=== PATIENT | female | born 1965 | race Caucasian/White ===

== ENCOUNTER 2023-08-01 10:42 | Emergency (ER) | payer MEDICARE, SELFPAY ==
[2023-08-01 10:49] VITALS: RESP 16; TEMP 36.8; O2SAT 98; BMI 32.4
[2023-08-01 10:52] VITALS: BP 191/120
[2023-08-01 10:58] VITALS: BP 164/108
[2023-08-01] MEDS: KETOROLAC TROMETHAMINE 60 MG/2 ML VIAL IM (11:18)
[2023-08-01] MEDS: AMOXICILLIN/POTASSIUM CLAV 1 TAB TABLET PO (11:18)
[2023-08-01] MEDS: LIDOCAINE VISCOUS 2% 15 ML SOLUTION MM (11:18)
[2023-08-01 11:33] VITALS: PULSE 88; RESP 18; O2SAT 98
--- NOTE | 2023-08-01 14:46 | ED.DENTAL1 ---
HPI - Dental/Oral General Chief complaint: Dental/Oral Stated complaint: TOOTH PAIN Time Seen by Provider: 08/01/23 11:03 Source: patient Mode of arrival: walk-in Limitations: no limitations History of Present Illness HPI Narrative: The patient presenting to us with a upper right dental pain she mentioned that she had an extraction of the fifth and fourth teeth in the right upper side almost a week ago on Wednesday The patient mentioned that she started having pain after that and she was not provided with any pain medication when able to evaluate the patient she was drinking coffee She did mention that she has been having a lot of pain and she tried some Tylenol at home Related Data Previous Rx's Medication Instructions Recorded amoxicillin 875 mg-potassium 1 tab PO BID #14 tabs 08/01/23 clavulanate 125 mg tablet diclofenac sodium 75 mg 75 mg PO Q12H PRN pain #10 tabs 08/01/23 tablet,delayed release Allergies Allergy/AdvReac Type Severity Reaction Status Date / Time Sulfa (Sulfonamide Allergy Intermediate Verified 08/01/23 10:51 Antibiotics) Review of Systems ROS Status of ROS 10 or more systems reviewed and unremarkable except as noted in history and below PFSH PFS Social History Smoking status: Never smoker Exam Narrative Exam Narrative: Nurses notes and vital signs reviewed and patient is not hypoxic. Dental exam of the patient There is multiple decayed tooth with multiple extraction on the right upper 6 7 and fifth tooth where the patient pointing to the extraction there is a remaining part of the teeth it is not typical as it looks in a dry socket and it is tender on palpation there is no significant inflammation of the gums seen General: Well-appearing and in no apparent distress. Skin: Warm, dry, no pallor noted. No rash. Head: Normocephalic, atraumatic. Neck: Supple, non-tender. Eye: Pupils are equal, round and EOMI. No scleral icterus. Ears, Nose, Mouth, and Throat: TM are clear, no nasal mucosal hypertrophy. Oral mucosa is moist, no posterior oropharynx erythema, uvula is mid-line Cardiovascular: Regular Rate and Rhythm without murmur, gallop or rub. Respiratory: No accessory muscle use or respiratory distress. Lungs are clear to auscultation, no wheezing, rales or rhonchi Chest Wall: no tenderness Back: No midline thoracic or lumbar vertebral tenderness. No CVA tenderness Musculoskeletal: normal ROM, no calf or popliteal tenderness, no lower extremity edema/swelling GI: Abdomen is soft, non-distended. Normal bowel sounds. No masses appreciated. No tenderness to palpation. No rebound, guarding, or rigidity noted. Neurological: A&O x4. No cranial nerve dysfunction observed. No truncal ataxia. Moves all extremities. Sensation intact. Psychiatric: Cooperative and interactive. Normal mood and affect. Constitutional Vital Signs, click to edit/add: Last Vital Signs Temp 98.3 F 08/01/23 10:49 Pulse 88 08/01/23 11:33 Resp 18 08/01/23 11:33 BP 164/108 H 08/01/23 10:58 Pulse Ox 98 08/01/23 11:33 O2 Del Method Room Air 08/01/23 10:49 Course Vital Signs Vital signs: Vital Signs Temperature 98.3 F 08/01/23 10:49 Respiratory Rate 16 08/01/23 10:49 Pulse Oximetry 98 08/01/23 10:49 Oxygen Delivery Method Room Air 08/01/23 10:49 Temperature 98.3 F 08/01/23 10:49 Pulse Rate 88 08/01/23 11:33 Respiratory Rate 18 08/01/23 11:33 Blood Pressure 164/108 H 08/01/23 10:58 Pulse Oximetry 98 08/01/23 11:33 Oxygen Delivery Method Room Air 08/01/23 10:49 MDM - Dental/Oral MDM Narrative Medical decision making narrative: The patient presentation is mostly concerning for dental decay pain and infection after dental decay her presentation right now is not typical of a dry socket especially that the decayed teeth apart still there on examination and it not typical how dry socket look or how it would be that severely painful The patient right now was treated with a viscous lidocaine as well as Augmentin and Toradol in the ER discharged home with Voltaren as well as Augmentin she was instructed about the importance of following up with her dentist on Wednesday and making sure that she will see him and he will evaluate this to avoid any complication she is to come back to the ER in case of any new symptoms I did explain to the patient the risk for infection The patient is to follow up with primary care physician in next 2-3 days or to return to the emergency department should any of the signs or symptoms worsen or new symptoms develop. The patient agrees with the following Diagnosis and Treatment plan and the patient will be discharged home. Discharge Plan Discharge Chief Complaint: Dental/Oral Clinical Impression: Toothache Patient Disposition: Home, Self-Care Time of Disposition Decision: 11:19 Condition: Good Prescriptions / Home Meds: New amoxicillin-pot clavulanate 875-125 mg tablet 1 tab PO BID Qty: 14 0RF diclofenac sodium 75 mg tablet,delayed release (DR/EC) 75 mg PO Q12H PRN (Reason: pain) Qty: 10 0RF Instructions: Toothache (ED) Additional Instructions: please follow up with your dentist [facility] Stand Alone Forms: Portal Instructions Referrals: Physician,Non-Staff, MD [Primary Care Provider] - 1 week Discharge Date/Time: 08/01/23 11:34
== END 2023-08-01 11:34 | disposition home or self-care (01) ==
PROVIDERS: Emergency Provider Emergency Medicine
DX: K08.89 Other specified disorders of teeth and supporting structures (principal)
CPT/HCPCS: 96372; 99284

== ENCOUNTER 2024-03-21 13:58 | Outpatient (OUT) | payer MEDICARE, SELFPAY | END 2024-03-21 13:59 | disposition home or self-care (01) | LOC: PST 13:58 | PROVIDERS: Visit Provider Surgery | DX: Z01.818 Encounter for other preprocedural examination (principal); Z12.11 Encounter for screening for malignant neoplasm of colon; Z80.0 Family history of malignant neoplasm of digestive organs ==

== ENCOUNTER 2024-03-29 07:06 | Day surgery (SDC) | payer MEDICARE, SELFPAY ==
--- NOTE | 2024-03-29 | OP_ITS ---
OPERATION DATE: 03/29/2024 PREOPERATIVE DIAGNOSIS: Colorectal screening. POSTOPERATIVE DIAGNOSIS: Redundant colon as well as fair prep. PROCEDURE: Colonoscopy to cecum. SURGEON: Jaswant Ly M.D. ANESTHESIA: Monitored anesthesia care. ESTIMATED BLOOD LOSS: Zero. INDICATIONS AND CONSENT: Patient is a 58-year-old female presents for colorectal screening. Indications, risks, benefits, alternatives of proceeding with colonoscopy were explained extensively to the patient, including the risks of bleeding, colon perforation or anesthetic complications. All of her questions were answered. Informed consent was obtained. PROCEDURE: Patient brought to the operating room, placed in the left lateral decubitus position. Monitored anesthesia care was provided. Rectal exam was performed which showed no masses or blood. The scope was inserted into the anal canal. Under direct visualization was advanced. With the aid of abdominal compression, it was advanced to the cecum where cecal markings were clearly identified. Upon withdrawal of the scope, mucosal surfaces were carefully examined. There were no mass lesions or polyps. No inflammatory changes or ulcerations. No significant diverticulosis. There was noted to be redundancy of the colon, as well as some solid stool throughout the colon. The scope was retroflexed in the anal canal. There was no significant hemorrhoidal disease. Scope was then withdrawn. Patient tolerated procedure well, was sent to recovery room in good condition.f/u colonoscopy should be in 10 years. CC: Patient?s family physician EVETTE
--- OUTSIDE RECORDS SUMMARY | 2024-03-29 07:10 | XMS_ITS | CCD ---
Author Organization [facility] Care Team Providers Care Suction Dredge Dumping Supervisor Name Role Phone KORINA HERNANDEZ Admitting Unavailable KORINA HERNANDEZ Attending Unavailable HOUSE, DR CASTILLO Primary Care Unavailable NELSON ODEN Consulting Unavailable HOUSE, DR CASTILLO Admitting Unavailable HOUSE, DR CASTILLO Attending Unavailable HOUSE, DR CASTILLO Primary Care Unavailable HOUSE, DR CASTILLO Consulting Unavailable MIKE BURKETT Primary Care Physician QUINTEN PAYNE Attending Unavailable BEGrace, QUINTEN Rosen Referring Unavailable QUINTEN PAYNE Attending Unavailable ANGLIM, MIKE Referring Unavailable NILLJaswant Attending Unavailable ANGLIM, MIKE Referring Unavailable NILLJaswant Attending Unavailable Allergies Allergy Classification Reported Allergen(s) Allergy Type Date of Onset Reaction(s) Facility (1 source) Codeine Drug Allergy [address] [facility] (1 source) Sulfonamides (Antibiotic) Drug allergy (disorder) [address] [facility] (1 source) tiZANidine Drug Allergy [address] [facility] (1 source) Egg/Poultry Drug allergy (disorder) [address] [facility] (2 sources) Sulfonamides (Antibiotic); Translations: [sulfa drugs] Drug allergy Weal (disorder) [facility] Medications Current Medications Medication Drug Class(es) Dates Sig (Normalized) Sig (Original) amitriptyline hydrochloride 100 mg oral tablet (1 source) Tricyclic Antidepressant Start: 12-09-2023 take 1 tablet by mouth once daily at bedtime amitriptyline 100 mg oral tablet 100 mg = 1 tab(s), Oral, Once a day (at bedtime), Refills(s) 0 Start Date: 12/09/23 Status: Ordered atorvastatin 40 mg oral tablet (1 source) HMG-CoA Reductase Inhibitor Start: 12-09-2023 take 1 tablet by mouth once daily atorvastatin 40 mg Tab 40 mg = 1 tab(s), Oral, Daily, Refills(s) 0 Start Date: 12/09/23 Status: Ordered cyclobenzaprine hydrochloride 10 mg oral tablet (1 source) Muscle Relaxant Start: 12-09-2023 take 1 tablet by mouth three times daily as needed for muscle spasms cyclobenzaprine 10 mg Tab 10 mg = 1 tab(s), Oral, TID, PRN for spasm Start Date: 12/09/23 Status: Ordered diclofenac sodium 75 mg delayed release oral tablet (1 source) Nonsteroidal Anti-inflammatory Drug Start: 12-09-2023 take 1 tablet by mouth twice daily diclofenac sodium 75 mg Oral EC Tab 75 mg = 1 tab(s), Oral, BID, Refills(s) 0 Start Date: 12/09/23 Status: Ordered 1 ml erenumab-aooe 70 mg/ml auto-injector (1 source) Start: 12-09-2023 inject 70 mg by subcutaneous injection every month Aimovig SureClick 70 mg/mL subcutaneous solution 70 mg, SubCutaneous, qMonth, Refills(s) 0 Start Date: 12/09/23 Status: Ordered glucosamine 750 mg oral tablet (1 source) Start: 12-09-2023 glucosamine 750 mg oral tablet See Instructions, as directed, Refills(s) 0 Start Date: 12/09/23 Status: Ordered levothyroxine sodium 0.112 mg oral tablet (1 source) l-Thyroxine Start: 12-09-2023 take 1 tablet by mouth once daily levothyroxine 112 mcg (0.112 mg) Tab 112 mcg = 1 tab(s), Oral, Daily, Refills(s) 0 Start Date: 12/09/23 Status: Ordered meloxicam 15 mg oral tablet (1 source) Nonsteroidal Anti-inflammatory Drug Start: 12-09-2023 take 1 tablet by mouth once daily meloxicam 15 mg Tab 15 mg = 1 tab(s), Oral, Daily, Refills(s) 0 Start Date: 12/09/23 Status: Ordered omeprazole 40 mg delayed release oral capsule (1 source) Proton Pump Inhibitor Start: 12-09-2023 take 1 capsule by mouth once daily omeprazole 40 mg Cap-DR 40 mg = 1 cap(s), Oral, Daily, Refills(s) 0 Start Date: 12/09/23 Status: Ordered rOPINIRole 4 mg oral tablet (1 source) Nonergot Dopamine Agonist Start: 12-09-2023 take 1 tablet by mouth at bedtime ropinirole 4 mg oral tablet 4 mg = 1 tab(s), Oral, Bedtime, Refills(s) 0 Start Date: 12/09/23 Status: Ordered topiramate 50 mg oral tablet (1 source) Start: 12-09-2023 take 1 tablet by mouth once daily topiramate 50 mg Tab 50 mg = 1 tab(s), Oral, Daily, Refills(s) 0 Start Date: 12/09/23 Status: Ordered 24 hr venlafaxine 150 mg extended release oral capsule (1 source) Serotonin and Norepinephrine Reuptake Inhibitor Start: 12-09-2023 take 1 capsule by mouth once daily venlafaxine 150 mg Cap-ER 150 mg = 1 cap(s), Oral, Daily, Refills(s) 0 Start Date: 12/09/23 Status: Ordered 24 hr verapamil hydrochloride 120 mg extended release oral capsule (1 source) Calcium Channel Armen Start: 12-09-2023 take 1 capsule by mouth once daily verapamil 120 mg Cap-ER 120 mg = 1 cap(s), Oral, Daily, Refills(s) 0 Start Date: 12/09/23 Status: Ordered Problems Active Problems Problem Classification Problem Date Documented Date Episodic/Chronic Anxiety disorders (1 source) Anxiety 12-09-2023 Chronic Asthma (2 sources) Unspecified asthma, uncomplicated; Translations: [Asthma] Onset: 10-20-2021 12-09-2023 Chronic Disorders of lipid metabolism (2 sources) Pure hypercholesterolemia, unspecified; Translations: [Hypercholesterolemia] Onset: 10-20-2021 12-09-2023 Chronic Esophageal disorders (1 source) Gastroesophageal reflux disease 12-09-2023 Chronic Essential hypertension (2 sources) Essential (primary) hypertension; Translations: [Essential hypertension] Onset: 10-20-2021 12-09-2023 Chronic Headache; including migraine (1 source) Migraine 12-09-2023 Chronic Mood disorders (2 sources) Major depressive disorder, single episode, unspecified; Translations: [Depressive disorder] Onset: 10-20-2021 12-09-2023 Chronic Other hereditary and degenerative nervous system conditions (1 source) Restless legs syndrome; Translations: [RESTLESS LEGS SYNDROME] Onset: 10-20-2021 Chronic Other hereditary and degenerative nervous system conditions (1 source) Restless legs 12-09-2023 Chronic Other lower respiratory disease (4 sources) Shortness of breath; Translations: [SHORTNESS OF BREATH] Onset: 04-30-2022 Episodic Other nutritional; endocrine; and metabolic disorders (1 source) Body mass index 30+ - obesity 02-01-2024 Chronic Other nutritional; endocrine; and metabolic disorders (1 source) Obesity 12-09-2023 Chronic Other screening for suspected conditions (not mental disorders or infectious disease) (1 source) Screening for malignant neoplasm of colon done; Translations: [Encounter for screening for malignant neoplasm of colon] Onset: 02-01-2024 Episodic Residual codes; unclassified (1 source) Family history of malignant neoplasm of digestive organ; Translations: [Family history of malignant neoplasm of digestive organs] Onset: 02-01-2024 Episodic Residual codes; unclassified (1 source) Family history of cancer of colon 02-01-2024 Episodic Residual codes; unclassified (1 source) Insomnia 12-09-2023 Episodic Thyroid disorders (2 sources) Hypothyroidism, unspecified; Translations: [Hypothyroidism] Onset: 10-20-2021 12-09-2023 Chronic Unclassified (1 source) CONTACT W/AND (SUSP) EXPOS COVID-19; Translations: [CONTACT W/AND (SUSP) EXPOS COVID-19] Onset: 10-20-2021 Unclassified (1 source) Patient encounter status 02-01-2024 Past or Other Problems Problem Classification Problem Date Documented Da te Episodic/Chronic Other aftercare (1 source) Other terminologist (current) drug therapy; Translations: [OTH ALF CURRENT DRUG THERAPY] Onset: 10-20-2021 Episodic Other skin disorders (3 sources) Localized swelling, mass and lump, head; Translations: [LOCALIZED SWELLING MASS AND LUMP HEAD] Onset: 10-16-2021 Episodic Other upper respiratory disease (1 source) Abscess, furuncle and carbuncle of nose; Translations: [ABSCESS FURUNCLE AND CARBUNCLE NOSE] Onset: 10-20-2021 Episodic Results Test Name Value Interpretation Reference Range Facility Insurance Correspondenceon 0 6-07-2024 Insurance Correspondence [id number] 4#1.00TIFF [facility] Consent for Procedure/Surger yon 02-03-2024 Consent for Procedure/Surgery [id number] #1.00TIFF [facility] Facesheeton 02-02-2024 Facesheet [id number] 5#1.00TIFF [facility] Ambulatory Visit Summaryon 0 02-01-2024 Ambulatory Visit Summary AUTUMN BRANDT :1965 Visit Date:02/01/2024 Ambulatory Visit Instructions Your Diagnosis Screening for malignant neoplasm of colon Family history of colon cancer in father Your Care Team Attending Physician - Jaswant LY MD Primary Care Physician - MIKE BURKETT CNP Referring Physician - MIKE BURKETT CNP This Is Your Medications List Contact prescribing physician if questions or concerns amitriptyline (amitriptyline 100 mg oral tablet) atorvastatin (atorvastatin 40 mg Tab) cyclobenzaprine (cyclobenzaprine 10 mg Tab) diclofenac (diclofenac sodium 75 mg Oral EC Tab) erenumab (Aimovig SureClick 70 mg/mL subcutaneous solution) glucosamine (glucosamine 750 mg oral tablet) levothyroxine (levothyroxine 112 mcg (0.112 mg) Tab) meloxicam (meloxicam 15 mg Tab) omeprazole (omeprazole 40 mg Cap-DR) ropinirole (ropinirole 4 mg oral tablet) topiramate (topiramate 50 mg Tab) venlafaxine (venlafaxine 150 mg Cap-ER) verapamil (verapamil 120 mg Cap-ER) Procedures Performed Breast reduction, Carpal tunnel release, Colonoscopy, Excision of calcaneal spur, Excision of tumor of brain meninges, Tubal ligation, VH - Vaginal hysterectomy. Discharge Vitals Heart Rate (Peripheral) 70 Respiratory Rate 16 Blood Pressure 126/88 Height 161.2 cm Height 63 in Weight 83.3 kg Weight 183.26 lb BMI 32.06 Medications What How Much When Instructions Unchanged amitriptyline (amitriptyline 100 mg oral tablet) 1 Tablets By Mouth Once a day (at bedtime) Contact prescribing physician if questions or concerns Unchanged atorvastatin (atorvastatin 40 mg Tab) 1 Tablets By Mouth Every day Contact prescribing physician if questions or concerns Unchanged cyclobenzaprine (cyclobenzaprine 10 mg Tab) 1 Tablets By Mouth 3 times a day as needed for for spasm Contact prescribing physician if questions or concerns Unchanged diclofenac (diclofenac sodium 75 mg Oral EC Tab) 1 Tablets By Mouth 2 times a day Contact prescribing physician if questions or concerns Unchanged erenumab (Aimovig SureClick 70 mg/ mL subcutaneous solution) 70 Milligram Subcutaneous Once a month Contact prescribing physician if questions or concerns Unchanged glucosamine (glucosamine 750 mg oral tablet) See instructions as directed Contact prescribing physician if questions or concerns Unchanged levothyroxine (levothyroxine 112 mcg (0.112 mg) Tab) 1 Tablets By Mouth Every day Contact prescribing physician if questions or concerns Unchanged meloxicam (meloxicam 15 mg Tab) 1 Tablets By Mouth Every day Contact prescribing physician if questions or concerns Unchanged omeprazole (omeprazole 40 mg Cap-DR) 1 Capsules By Mouth Every day Contact prescribing physician if questions or concerns Unchanged ropinirole (ropinirole 4 mg oral tablet) 1 Tablets By Mouth At bedtime Contact prescribing physician if questions or concerns Unchanged topiramate (topiramate 50 mg Tab) 1 Tablets By Mouth Every day Contact prescribing physician if questions or concerns Unchanged venlafaxine (venlafaxine 150 mg Cap-ER) 1 Capsules By Mouth Every day Contact prescribing physician if questions or concerns Unchanged verapamil (verapamil 120 mg Cap-ER) 1 Capsules By Mouth Every day Contact prescribing physician if questions or concerns Allergies sulfa drugs (Hives) Problems Ongoing - Any problem that you are currently receiving treatment for. Anxiety Asthma BMI 32.0-32.9,adult Depression Essential hypertension Family history of colon cancer in father GERD (gastroesophageal reflux disease) Hypercholesteremia Hypothyroidism Insomnia Migraines Obesity RLS (restless legs syndrome) Screening for malignant neoplasm of colon Patient Survey You may receive a survey via text or e-mail asking about your office visit. Please share your experience with us by completing your survey. We appreciate your feedback and thank you for choosing us for your care. Normal [facility] CT ANGIO HEADon 01-27-2024 CT ANGIO HEAD EXAM: CT ANGIO HEAD History: family histoy of cerevral aneurysm Technique: Multiple axial images were obtained of the brain. Multiple axial images were obtained of the skull base through the seminole of Carvalho after administration of intravenous contrast. Multiplanar reformats and multiplanar maximum intensity projection images were performed. All CT scans at this facility use dose modulation, iterative reconstruction, and/or weight based dosing when appropriate to reduce radiation dose to as low as reasonably achievable. Comparison: CT brain June 28, 2019 Findings: Brain volume is age-appropriate. Ventricular morphology is within normal limits. No acute intracranial hemorrhage or extra-axial fluid collection. Postsurgical changes of right-sided craniectomy. Paranasal sinuses and mastoid air cells are clear. The bilateral distal cervical internal carotid arteries through the skull base are patent. The bilateral middle cerebral arteries through the trifurcation and opercular branches are patent. The vertebrobasilar system including the superior cerebellar and posterior cerebral arteries are patent. Posterior communicating arteries are patent. The bilateral anterior cerebral arteries and anterior communicating artery are patent. No aneurysm or high-grade stenosis of the visualized cerebral vasculature. IMPRESSION: No aneurysm or high-grade stenosis. ELECTRONICALLY SIGNED BY: Gregorio Reed, DO Normal Not Available Provider Letteron 12-24-2023 Provider Letter December 24, 2023 AUTUMN BRANDT [address] [place] [address] : 1965 Dear Ms. Brandt, We have been trying to reach you with no success. You have an appointment with Dr Ly on 01/14/24 which will need to be rescheduled since he/she will be out of the office that day. Please contact the office at the number listed below to get this appointment rescheduled at your earliest convenience. Thank you for your prompt attention to this matter. Sincerely, [facility] General Surgery [phone] Normal [facility] Physician Referralon 024 Physician Referral [id number] #1.00TIFF Normal [facility] Physician Referralon 024 Physician Referral [id number] #1.00TIFF Normal [facility] CULTURE ABSCESSon 10-19-2021 CULTURE ABSCESS Isolate 1 Staphylococcus aureus Moderate growth of ORGANISM 1 Staphylococcus aureus ANTIBIOTIC M.I.C RX STATUS Beta-Lactamase Neg NEG F Cefoxitin Screen Neg NEG F Benzylpenicillin 0.12 S F Gentamicin <=0.5 S F Ciprofloxacin <=0.5 S F Levofloxacin <=0.12 S F Moxifloxacin <=0.25 S F Inducible Clindamycin Resistance Neg NEG F Erythromycin <=0.25 S F Clindamycin <=0.25 S F Quinupristin/Dalfopr istin <=0.25 S F Linezolid 2 S F Vancomycin 1 S F Tetracycline <=1 S F Rifampicin <=0.5 S F Trimethoprim/Sulfame thoxazole <=10 S F Oxacillin 0.[address] [facility] Comment on above: Performed By: #### A BCESCX #### [facility] [address] [place] [id number] Augustin Adams Covid-19 PCR (CVDTB)on SARS-CoV-2 (COVID-19) RNA DAI+probe Ql (Unsp spec) Not detected Normal NOT DETECTED [facility] Comment on above: Result Comment: This test is not yet approved or cleared by the [place] FDA. When there are no FDA-approved or cleared tests available, and other criteria are met, FDA can make tests available under an emergency access mechanism called an Emergency Use Authorization (EUA). The EUA for this test is supported by the Lab Assistant of Health and Human Service's (HHS's) declaration that circumstances exist to justify the emergency use of in vitro diagnostics for the detection and/or diagnosis of the virus that causes COVID-19. This EUA will remain in effect (meaning this test can be used) for the duration of the COVID-19 declaration justifying emergency of IVDs, unless it is terminated or revoked by FDA (after which the test may no longer be used). When diagnostic testing is negative, the possibility of a false negative should be considered in the context of a patient's recent exposures and the presence of clinical signs and symptoms consistent with SARS-CoV-2. Performed By: #### C VDTBH #### [facility] [address] [place] [id number] Augustin Adams Vital Signs Date Time Vital Sign Value Performing Clinician Faci lity 02-01-2024 13:35-0400 Blood Pressure Location Jaswant MOUNA [facility] 02-01-2024 13:35-0400 Diastolic blood pressure 88 mm[Hg] Jaswant MCDOWELLL [facility] 02-01-2024 13:35-0400 Heart rate 70 /min Jaswant JEREMIASL [facility] 02-01-2024 13:35-0400 Respiratory rate 16 /min Jaswant JEREMIASL [facility] 02-01-2024 13:35-0400 Systolic blood pressure 126 mm[Hg] Jaswant MCDOWELLL [facility] Encounters Encounter Date Encounter Type Care Provider Facility Start: 02-29-2024 End: 02-29-2024 ambulatory QUINTEN D BEJ Not Available Start: 02-01-2024 End: 02-01-2024 ambulatory MIKE BURKETT Facility:[facility] Start: 02-01-2024 End: 02-01-2024 [facility] encounter [facility] Start: 01-27-2024 End: 01-28-2024 ambulatory QUINTEN D BEJ Not Available Start: 01-14-2024 ambulatory MIKE BURKETT Facility:[facility] Start: 12-14-2023 End: 12-14-2023 ambulatory QUINTEN D BEJ Not Available Start: 12-02-2023 ambulatory MIKE BURKETT Facility:[facility] Start: 04-30-2022 End: 05-01-[address] ANNA ÁLVAREZ Facility:[facility] Start: 10-16-2021 End: 10-16-2021 ambulatory KORINA HERNANDEZ Facility:[facility] Procedures Date Procedure Procedure Detail Performing Clinician Colonoscopy Jaswant LY Decompression of median nerve Jaswant LY Excision of tumor of brain meninges Jaswant LY Ligation of fallopian tube M alberto LY Ostectomy of calcaneus for spur Jaswant MOUNA Reduction mammoplasty Dallin LY Vaginal hysterectomy Jaswant LY Immunizations Immunization Date Immunization Notes Care Provider Fa cili 09-28-2023 influenza virus vaccine, unspecified formulation Jaswant LY [facility] 09-17-2022 SARS-CoV-2 (COVID-19 ) [id number] Jaswant LY [facility] 09-21-2021 SARS-CoV-2 (COVID-19 ) mRNA BNT-162b2 vax Jaswant LY [facility] 01-22-2021 SARS-CoV-2 (COVID-19 ) mRNA BNT-162b2 vax Jaswant LY [facility] Comment on above: Result Comment: 2023: [id number] 12-31-2020 SARS-CoV-2 (COVID-19 ) mRNA BNT-162b2 vax Jaswant LY [facility] Comment on above: Result Comment: 2023: [id number] Payers Date Payer Category Payer Unknown [id number] 2.16.84 [id number] 1965 Unknown [id number] 2.16.84 [id number] 1965 Unknown [id number] 2.16.84 [id number] 1965 Unknown [id number] 2.16.84 [id number] 1965 Unknown [id number] 2.16.84 [id number] 1965 Unknown [id number] 2.16.8 [id number] 1965 Unknown [id number] 2.16.8 [id number] 1961 Medicare [id number] Social History Date Type Detail Facility Start: 02-01-2024 Tobacco smoking status Never s moked tobacco (finding) [facility] Tobacco smoking status Never [facility] Sex Assigned At Female [facility] Functional Status Date Assessment Result Facility 02-01-2024 Functional Status N/A [facility] Clinical Note 02-01-2024 Note Date & Type Note Facility 02-01-2024 Note Chief Complaint consultation for colonoscopy HPI Staff 58 year old female presents on consultation from Mike Burkett for screening colonoscopy. Denies abdominal or rectal pain. No rectal bleeding or change in bowel habits. Reports chronic constipation. Denies nausea or vomiting. No unexplained weight loss. Last colonoscopy completed greater than 10 years ago for complaint of constipation; patient reports this was normal. Father with history of colon cancer, diagnosed age 60. History of Present Illness 58 yo female with h/o htn, hypercholesterolemia, hypothyroidism, GERD, asthma, migraines, RLS, referred for colorectal screening; denies change in bms or blood in stools; no abdominal complaints; denies asa use, on Diclofenac daily; no SBE prophylaxis; abdominal operations significant for tubal ligation and hysterectomy; last colonoscopy >10 years ago, reportedly normal; fmhx of colon cancer in patient's father, dx at age 60, no IBD; no tobacco use. Review of Systems PHQ Score Initial Depression Screen Score: 0 SCORE ROS - Provider Constitutional: no fever, no sweats, no weight loss. Eyes: no glasses, no blurred vision, no visual loss. ENMT: no dentures, no hoarseness, no swallowing difficulties, no hearing loss, no ear infection(s), no nose bleeds. Cardiovascular: normal blood pressure, no chest pain, regular heartbeat, no heart murmur. Respiratory: no shortness of breath, no cough, no asthma, no wheezing. Gastrointestinal: no nausea, no vomiting, no diarrhea, no constipation, no blood in stool, no change in bowel habits, no abdominal pain, no hepatitis. Genitourinary: no kidney stones, no urine infection, no dysuria. Musculoskeletal: no pain, no weakness. Skin: no changing moles, no rash, no skin lumps. Neurologic: no seizures, no epilepsy, no headache. Psychiatric: no emotional or psychiatric problem. Heme/Lymph: no bleeding problems, no anemia, no blood clots, no transfusions. Allergy/Immunologic: no swollen lymph nodes/glands, no IV drug abuse. Other: Additional ROS info: Except as noted in the above Review of Systems and in the History of Present Illness, all other systems have been reviewed and are negative or noncontributory. Physical Exam Vitals & Measurements HR: 70(Peripheral) RR: 16 BP: 126/88 HT: 63 in HT: 161.2 cm WT: 83.3 kg WT: 183.26 lb BMI: 32.06 HEENT: normal conjunctiva, sclera clear, no scleral icterus, EOM intact, PERRLA, oral mucosa moist without lesions. Neck: trachea midline, no mass, symmetric, no thyromegaly or nodules, no adenopathy Respiratory: lungs CTA, respirations non labored. Cardiovascular: regular rate and rhythm, no murmur, no pedal edema or varicosities. Gastrointestinal: obese, soft, non distended, no tenderness, no masses, no palpable hernias, diastasis recti no, no hepatosplenomegaly; normal bs Lymphatic: no cervical adenopathy, no supraclavicular adenopathy. Musculoskeletal: normal gait, digits and nails without infection, nodes, cyanosis, clubbing. Skin: no rashes, no lesions, no ulcers, no subcutaneous nodules, induration. Psychiatric/Neuro: oriented to time, place, person, judgement normal, affect appropriate for age, insight intact, no focal deficits. Tests: , review of old records completed , Discussed surgical options, risks, and possible complications with patient. Assessment/Plan 1. Screening for malignant neoplasm of colon (Z12.11: Encounter for screening for malignant neoplasm of colon) plan colonoscopy under anesthesia, informed consent obtained. 2. Family history of colon cancer in father (Z80.0: Family history of malignant neoplasm of digestive organs) see # 1 Follow-up No qualifying data available Problem List/Past Medical History Ongoing Anxiety Asthma BMI 32.0-32.9,adult Depression Essential hypertension Family history of colon cancer in father GERD (gastroesophageal reflux disease) Hypercholesteremia Hypothyroidism Insomnia Migraines Obesity RLS (restless legs syndrome) Screening for malignant neoplasm of colon Historical No qualifying data Procedure/Surgical History Breast reduction, Carpal tunnel release, Colonoscopy, Excision of calcaneal spur, Excision of tumor of brain meninges, Tubal ligation, VH - Vaginal hysterectomy. Medications Aimovig SureClick 70 mg/mL subcutaneous solution, 70 mg, SubCutaneous, qMonth amitriptyline 100 mg oral tablet, 100 mg= 1 tab(s), Oral, Once a day (at bedtime) atorvastatin 40 mg Tab, 40 mg= 1 tab(s), Oral, Daily cyclobenzaprine 10 mg Tab, 10 mg= 1 tab(s), Oral, TID, PRN diclofenac sodium 75 mg Oral EC Tab, 75 mg= 1 tab(s), Oral, BID glucosamine 750 mg oral tablet, See Instructions levothyroxine 112 mcg (0.112 mg) Tab, 112 mcg= 1 tab(s), Oral, Daily meloxicam 15 mg Tab, 15 mg= 1 tab(s), Oral, Daily omeprazole 40 mg Cap-DR, 40 mg= 1 cap(s), Oral, Daily ropinirole 4 mg oral tablet, 4 mg= 1 tab(s), Oral, Bedtime topiramate 50 mg Tab, 50 mg= 1 tab(s), Oral, Daily ve (more content not included)... [facility] Comment on above: Result Comment: Elec tronically Signed By: MOUNA BENITEZ, Jaswant Mccain\Date and Time Signed: 02/01/24 13:58 EDT Evaluation + Plan note Note Date & Type Note Facility Evaluation + Plan note No data available for this section [facility] Hospital Discharge instructions Note Date & Type Note Facility Hospital Discharge instructions No data available for this section [facility] Progress note Note Date & Type Note Facility Progress note No data available for this section [facility] Summary Purpose Family History No Family History Records Found No data available for this section No Family History Records FoundNo Family History Records Found Advance Directives No Advanced Directives Records FoundNo Advanced Directives Records FoundNo Advanced Directives Records Found Additional Source Comments INFORMATION SOURCE (unrecogn ized section and content) DATE CREATED AUTHOR 05/06/2022 [facility] DATE CREATED AUTHOR AUTHOR'S ORGANIZ ATION 03/02/2024 [facility] EPIC DATE CREATED AUTHOR AUTHOR'S ORGANIZ ATION 03/19/2024 [facility] Patient Care team informatio n (unrecognized section and content) Personnel Name: MIKE BURKETT CNP Address: Address: [address] [place] [address] FAX [phone] [place], [place] [address]- FOR RECORDS PERTAINING TO PATIENTS WHO ARE OR HAVE BEEN ENROLLED IN A CHEMICAL DEPENDENCY/SUBSTANCEABUSE PROGRAM, SOME INFORMATION MAY BE OMITTED. This clinical summary was aggregated from multiple sources. Caution should be exercised in using it in the provision of clinical care. This summary normalizes information from multiple sources, and as a consequence, information in this document may materially change the coding, format and clinical context of patient data. In addition, data may be omitted in some cases. CLINICAL DECISIONS SHOULD BE BASED ON THE PRIMARY CLINICAL RECORDS. [email or web address] provides no warranty or guarantee of the accuracy or completeness of information in this document.
[2024-03-29 07:30] VITALS: BP 112/77; PULSE 75; TEMP 35.7; O2SAT 99; BMI 29.2
[2024-03-29] MEDS: LACTATED RINGER'S SOLUTION 1,000 ML 50 ML IV (07:55)
[2024-03-29 09:04] VITALS: BP 118/69; PULSE 75; O2SAT 97
[2024-03-29 09:21] VITALS: BP 106/64; PULSE 71; O2SAT 97
== END 2024-03-29 09:38 | disposition home or self-care (01) ==
PROVIDERS: Visit Provider Surgery
PROC: (CPT G0105; principal; 2024-03-29 08:20)
DX: Z12.11 Encounter for screening for malignant neoplasm of colon (principal); Z80.0 Family history of malignant neoplasm of digestive organs; E78.00 Pure hypercholesterolemia, unspecified; E03.9 Hypothyroidism, unspecified; K21.9 Gastro-esophageal reflux disease without esophagitis; J45.909 Unspecified asthma, uncomplicated; G25.81 Restless legs syndrome; G43.909 Migraine, unspecified, not intractable, without status migrainosus; Z90.710 Acquired absence of both cervix and uterus; G47.33 Obstructive sleep apnea (adult) (pediatric)
CPT/HCPCS: G0105; J2704

== ENCOUNTER 2025-08-15 10:29 | Outpatient (OUT) | payer MEDICARE, SELFPAY ==
--- OUTSIDE RECORDS SUMMARY | 2024-03-27 10:15 | XMS_ITS ---
Author Organization [facility] Address [address] [place] [phone] Care Team Providers Care Stockroom Helper Name Role Phone Dagoberto Concepcion Primary Care Provider [phone] Aure Eisenberg Unavailable Julieta Goncalves Unavailable [phone] REASON FOR VISIT Try-In- U/CD, L/RPD Social History Sex Assigned At : Social History Observation Description Sex Assigned At Female Encounters Encounter Location Date Provider Diagnosis [facility] [address] [place] [address] [phone] 03/27/2024 Julieta Goncalves Plan Of Treatment No Information Progress Notes * Nory BRANDTDOB:1965 (59 yo F)Acc No.[id number]:03/27/2024 Dental Note Patient: Gris DENNISisa :?Julieta Goncalves DDSDOB:1965???Age:58 Y ???Sex:FemaleDate:03/27/2024hone:[phone]:[address] [place], [place] [id number]:Dagoberto Concepcion Subjective: * Chief Complaints: * 1 . Try-In- U/CD, L/RPD. * Medical History: Objective: * Vitals: Assessment: Plan: * Treatment: * Billing Information: * Visit Code: * Procedure Codes: * Electronic signature of Julieta Goncalves DDS on 08/15/2025 at 10:36 AM EST Sign off status: Pending * Provider: Raciel Goncalves DDS Date: 0 03/27/2024 Generated for Printing/Faxing/eTransmitting on:?08/15/2025 10:36 AM EST
--- OUTSIDE RECORDS SUMMARY | 2024-04-19 04:15 | XMS_ITS ---
Author Organization [facility] vices Address [address] [address] [place] [place] [id number] Care Team Providers Care Pet Care Worker Name Role Phone Dagoberto Concepcion Primary Care Provider Aure Eisenberg REASON FOR VISIT 4 week RLS Social History Sex Assigned At : Social History Observation Description Sex Assigned At Female Encounters Encounter Location Date Provider Diagnosis Main [address] [place], [place] [id number] 04/19/2024 Dagoberto Concepcion Plan Of Treatment No Information Progress Notes * Nory BRANDTDOB:1965 (59 yo F)Acc No.[id number]:04/19/2024 Medical Note Patient: Nory DENNIS :?NELSON Britt-CDOB:1965???Age:58 Y???Sex: FemaleDate:4Phone:[phone]:[address] [place] [id number] Subjective: * Chief Complaints: * 1 . 4 week RLS. * Medical History: Objective: * Vitals: Assessment: Plan: * Treatment: * Billing Information: * Visit Code: * Procedure Codes: * Electronic signature of NELSON Britt on 08/15/2025 at 10:35 AM ESTSign off status: Pending * Provider: Dennis Concepcion PA-C Date: 0 04/19/2024 Generated for Printing/Faxing/eTransmitting on:?08/15/2025 10:35 AM EST
--- OUTSIDE RECORDS SUMMARY | 2024-05-08 03:15 | XMS_ITS ---
Author Organization [facility] vices Address [address] [place] [id number] Care Team Providers Care Process Development Technician Name Role Phone Dagoberto Concepcion Primary Care Provider Aure Eisenberg Unavailable Julieta Goncalves Unavailable [phone] REASON FOR VISIT Denture Adjustment Social History Sex Assigned At : Social History Observation Description Sex Assigned At Female Encounters Encounter Location Date Provider Diagnosis Dental Main [address], [place] [id number] 05/08/2024 Julieta Goncalves Plan Of Treatment No Information Progress Notes * Nory BRANDTDOB:1965 (59 yo F)Acc No.[id number]:05/08/2024 Dental Note Patient: Nory DENNIS :?Julieta Goncalves DDSDOB:1965???Age:58 Y ???Sex:FemaleDate:05/08/2024hone:[phone]:[address] [place] [phone]:Dagoberto Concepcion Subjective: * Chief Complaints: * 1 . Denture Adjustment. * Medical History: Objective: * Vitals: Assessment: Plan: * Treatment: * Billing Information: * Visit Code: * Procedure Codes: * Electronic signature of Julieta Goncalves DDS on 08/15/2025 at 10:35 AM EST Sign off status: Pending * Provider: Raciel Goncalves DDS Date: 0 05/08/2024 Generated for Printing/Faxing/eTransmitting on:?08/15/2025 10:35 AM EST
--- OUTSIDE RECORDS SUMMARY | 2025-08-05 00:18 | XMS_ITS | Encounter Summary ---
Author Organization [facility] Nolio [facility] tem Address [id number] [address] [place] [address] Care Team Providers Care Payment Rep Name Role Phone Jacque Daniel APRN-FRENCH TRANSLATOR Primary Care Provider Reason for Visit * ReasonCommentsVomitingPt presents to ED C/O vomiting x5days. Pt states she has had N/V/D the last 5 days. Pt states she had some soup that pt thinks was bad that started the vomiting episodes. Pt states 7/10 abd pain at this time. Encounter Details DateTypeDepartmentCare Team (Latest Contact Info)Xdvkhpxzstu42/26/2025 1:18 AM EDT - 08/05/2025 3:38 AM EDTEmergency [facility] [address] [place] [id number] Jatin Perez MD [address] [place] [address] Nausea vomiting and diarrhea (Primary Dx); Hypokalemia; Acute cystitis without hematuria Discharge Disposition: Home Social History Tobacco UseTypesPacks/DayYears UsedDateSmoking Tobacco: NeverSmokeless Tobacco: NeverAlcohol UseStandard Drinks/WeekCommentsNot Currently0 (1 standard drink = 0.6 oz pure alcohol)PHQ-2AnswerDate RecordedTotal Clmbc9941Childcare AnswerDate QkjnuqshZghcfybpzFmvwppr59/12/2019EmploymentAnswerDate Recorded RgctyefsblNevxdmz75/12/2019Hunger ScreeningAnswerDate RecordedWithin the past 12 months we worried whether our food would run out before we got money to buy more.Never True08/05/2025Within the past 12 months the food we bought just didn't last and we didn't have money to get more.Never True08/05/2025Purpose - LifeAnswerDate RecordedPurpose and direction in bfueSoicign59/02/2021 CommentsNoSex and Gender InformationValueDate RecordedSex Assigned at Hjryzo2206/21/2024 2:41 PM EDTLegal GzgAufxqz04/06/2015 11:22 AM EDTGender IdentityNot on fileSexual OrientationNot on filedocumented as of this encounter Last Filed Vital Signs Vital SignReadingTime TakenCommentsBlood Rrebwavn657/8408/05/2025 3:33 AM EDT Oobog263208/05/2025 3:33 AM UBAZmrcsvqefbz31.9 ??C (98.4 ??F)08/05/2025 1:23 AM EDTRespiratory Qbxi9209 3:33 AM EDTOxygen Kiwzmmshcc76%08/05/2025 3:33 AM EDTInhaled Oxygen Concentration--Tlbtdb08 kg (150 lb)08/05/2025 1:23 AM EDT Uxiogj829.1 cm (5' 5 )08/05/2025 1:23 AM EDTBody Mass Index24.9608/05/2025 1:23 AM EDTdocumented in this encounter Discharge Instructions * Discharge Instructions* Jatin Perez MD - 08/05/2025 2:08 AM EDT Make certain that your drinking enough water or Pedialyte to stay well hydrated. Increase your dietary potassium intake. Take medications, as prescribed, to assist with symptoms. Please contact your primary care physician's office Wednesday morning to schedule follow-up. * Attachments The following attachments cannot be sent through Care Everywhere. * High-potassium diet ([place]guillan) * Hypokalemia ([place]) * Nausea and vomiting in adults ([place]an) * Diarrhea? Adult ED ([place]) * Urinary tract infection in adults ??? Discharge instructions ([place]) documented in this encounter Medications at Time of Discharge MedicationSigDispense QuantityRefillsLast FilledStart DateEnd Date AIMOVIG AUTOINJECTOR 140 mg/mL auto-injector 150 mg.05/11/2024 albuterol (PROVENTIL HFA;VENTOLIN HFA) 90 mcg/actuation inhaler Inhale 2 puffs every 4 (four) hours as needed for wheezing. amitriptyline (ELAVIL) 100 mg tablet Take 1 tablet (100 mg total) by mouth nightly. atorvastatin (LIPITOR) 20 mg tablet Take 1 tablet (20 mg total) by mouth in the morning. celecoxib (CeleBREX) 100 mg capsule TAKE 1 CAPSULE (100 MG) BY MOUTH IN THE MORNING AND BEFORE BEDTIME coenzyme Q10 30 mg capsule Take 1 capsule (30 mg total) by mouth in the morning and 1 capsule (30 mg total) at noon and 1 capsule (30 mg total) before bedtime. cyclobenzaprine (FLEXERIL) 10 mg tablet Take 1 tablet (10 mg total) by mouth in the morning and 1 tablet (10 mg total) before bedtime. fluticasone propionate (FLONASE) 50 mcg/actuation nasal spray Administer 1 spray into each nostril in the morning. fluticasone-salmeterol (ADVAIR) 250-50 mcg/dose DISKUS Inhale 1 puff as needed in the morning and 1 puff as needed in the evening. glucosamine HCl/chondroitin horn (GLUCOSAMINE-CHONDROITIN ORAL) Take 1 tablet by mouth in the morning and 1 tablet before bedtime. 1500 Xs 2. levothyroxine (SYNTHROID, LEVOTHROID) 112 MCG tablet Indications:hypothyroidismTake 1 tablet (112 mcg total) by mouth in the morning. Indications: a condition with low thyroid hormone levels. loperamide (IMODIUM) 2 mg capsule Take 1 capsule (2 mg total) by mouth 4 (four) times a day as needed for diarrhea. 12 capsule 08/05/2025 meloxicam (MOBIC) 15 mg tablet Take 1 tablet (15 mg total) by mouth in the morning.01/22/2023 MULTIVIT-MIN/IRON/FOLIC/LUTEIN (CENTRUM SILVER WOMEN ORAL) Take 1 tablet by mouth in the morning. NON FORMULARY Med Name: potassium 99 mg, osteo-bi flex, brain performance support daily, omeprazole (PriLOSEC) 40 mg capsule Take 1 capsule (40 mg total) by mouth in the morning for 14 days. 14 capsule 5110/19/2024 ondansetron ODT (ZOFRAN ODT) 4 mg disintegrating tablet Dissolve 1 tablet (4 mg total) on tongue every 8 (eight) hours as needed for nausea for up to 10 doses. 10 tablet 08/05/2025 potassium gluconate 600 mg (99 mg) tablet Take 1 tablet by mouth in the morning. rOPINIRole (REQUIP) 4 mg tablet Take 1 tablet (4 mg total) by mouth nightly.01/22/2023 SUMAtriptan (IMITREX) 50 mg tablet Indications:Chronic migraine with auraTake 1 tablet (50 mg total) by mouth once as needed for migraine. May repeat in 2 hours if unresolved. Do not exceed 200 mg in 24 hours. 9 tablet topiramate (TOPAMAX) 200 MG tablet Take 1 tablet (200 mg total) by mouth in the morning. topiramate (TOPAMAX) 200 MG tablet Take 2 tablets (400 mg total) by mouth nightly. topiramate (TOPAMAX) 50 mg tablet Indications:Restless leg syndrome,Chronic migraine with auraTake 1 tablet (50 mg total) by mouth 2 (two) times a day. 60 tablet venlafaxine 150 MG tablet extended release 24hr 24 hr tablet Take 1 tablet (150 mg total) by mouth in the morning.documented as of this encounter ED Notes * Jatin Perez MD - 08/05/2025 1:29 AM EDT Images from the original note were not included. [facility] - EMERGENCY Pt Name: Nory Brandt Birthdate: 1965 Chief Complaint: Chief Complaint Patient presents with Vomiting Pt presents to ED C/O vomiting x5days. Pt states she has had N/V/D the last 5 days. Pt states she had some soup that pt thinks was bad that started the vomiting episodes. Pt states 7/10 abd pain at this time. History of Present Illness: Patient is a 59-year-old female presenting to the emergency department for evaluation and treatmentof persistent nausea, vomiting, and diarrhea. Patient reports that her symptoms have been ongoing for the last 5 days. Patient reports that she had made a broccoli soup for a competition. She indicated that she ate the soup thinking it was still good and shortly afterwards developed her symptoms. She indicates that she has vomited 3 times in the last 24 hours. She has had too numerous to count number of stools in the last 24 hours. She describes the stools as looking like bile. She ate some chicken noodle soup earlier this evening. She has some diffuse abdominal cramping. Past Medical History: Past Medical History: Diagnosis Date Anxiety Asthma Brain tumor (benign) ([facility]) Carpal tunnel syndrome Chronic pain neck and back Coronary artery disease Depression GERD (gastroesophageal reflux disease) Headache(784.0) High cholesterol Hypertension Hypothyroidism Migraine Neck pain Neurologic abnormality New onset seizure (CMS-HCC) 06/29/2019 Sleep apnea 2020 Past Surgical History: Past Surgical History: Procedure Laterality Date CARPAL TUNNEL RELEASE Bilateral CARPAL TUNNEL RELEASE Bilateral 2002,2003 CRANIOTOMY Right parietal, for benign tumor ESOPHAGOGASTRODUODENOSCOPY N/A 03/02/2023 Performed by Jaswant Gibbons DO at [facility] INJECTION BLOCK NERVE MEDIAL BRANCH BILAT C 3/4, 4/5 Bilateral 07/14/2024 Performed by Pb Prasad MD at [facility] INJECTION BLOCK NERVE MEDIAL BRANCH RIGHT C 3/4, 4/5 Right 09/01/2024 Performed by Pb Prasad MD at [facility] INJECTION SPINE TRANSFORAMINAL: right C 5,6 Nroot Right 01/12/2025 Performed by Pb Prasad MD at [facility] RADIO FREQUENCY ABLATION - Right C2/3, C3/4 RFA Right 03/12/2017 Performed by Pb Prasad MD at [facility] RADIOFREQUENCY ABLATION SPINAL RIGHT C 3/4, 4/5 Right 10/20/2024 Performed by Pb Prasad MD at [facility] PAIN REDUCTION MAMMAPLASTY Bilateral 10/11/2006 SPINAL CORD STIMULATOR IMPLANT SPINAL CORD STIMULATOR REMOVAL TONSILLECTOMY TONSILLECTOMY TUBAL LIGATION Family History: Family History Problem Relation Age of Onset Cerebral aneurysm Mother Restless legs syndrome Mother Aneurysm Mother Prostate cancer Father Ovarian cancer Maternal Aunt Ovarian cancer Maternal Aunt Ovarian cancer Maternal Aunt Ovarian cancer Maternal Aunt Social History: Social History Socioeconomic History Marital status: Tobacco Use Smoking status: Never Smokeless tobacco: Never Vaping Use Vaping status: Never Used Substance and Sexual Activity Alcohol use: Not Currently Drug use: Yes Types: Marijuana Comment: marijuana gummies Sexual activity: Defer Partners: Male Social Drivers of Health Food Insecurity: No Food Insecurity (08/05/2025) Hunger Screening Food Insecurity - Worry: Never True Food Insecurity - Inability: Never True Review of Systems: Review of Systems Physical Exam: ED Triage Vitals [08/05/25 0123] Temp Heart Rate Resp BP SpO2 36.9 ??C (98.4 ??F) 98 19 100/71 99 % Temp Source Heart Rate Source Patient Position BP Location FiO2 (%) Oral -- -- -- -- Vitals: 08/05/25 0123 08/05/25 0300 08/05/25 0333 BP: 100/71 130/82 137/84 Temp: 36.9 ??C (98.4 ??F) TempSrc: Oral Pulse: 98 80 84 Resp: 19 17 17 SpO2: 99% 100% 98% Height: 165.1 cm (5' 5 ) Weight: 68 kg (150 lb) 98 Physical Exam Constitutional: General: She is not in acute distress. Appearance: She is not ill-appearing, toxic-appearing or diaphoretic. HENT: Head: Normocephalic and atraumatic. Nose: Nose normal. Mouth/Throat: Mouth: Mucous membranes are moist. Eyes: Conjunctiva/sclera: Conjunctivae normal. Cardiovascular: Rate and Rhythm: Normal rate and regular rhythm. Pulses: Normal pulses. Heart sounds: Normal heart sounds. Pulmonary: Effort: Pulmonary effort is normal. Breath sounds: Normal breath sounds. Abdominal: Palpations: Abdomen is soft. Tenderness: There is abdominal tenderness. Comments: Generalized tenderness without rigidity, rebound, or guarding Musculoskeletal: General: Normal range of motion. Cervical back: Normal range of motion and neck supple. Skin: General: Skin is warm and dry. Neurological: General: No focal deficit present. Mental Status: She is alert and oriented to person, place, and time. Psychiatric: Mood and Affect: Mood normal. Behavior: Behavior normal. Procedure: Procedures Re-evaluation: Re-Evaluation Medical Decision Making IV access will be obtained. IV fluids ordered. IV Zofran and Pepcid ordered for patient comfort. Laboratory testing ordered. Stool studies have been ordered. Differential diagnosis: Gastroenteritis, food poisoning, infectious diarrhea, colitis, UTI Amount and/or Complexity of Data Reviewed Labs: ordered. Decision-making details documented in ED Course. Risk Prescription drug management. ED Course: ED Course as of 08/08/25 0808 Sun Aug 05, 2025 0200 Sodium: 140 [RS] 0200 Potassium(!): 3.0 [RS] 0200 Chloride(!): 114 [RS] 0200 CARBON DIOXIDE(!): 17 [RS] 0200 Anion gap: 9 [RS] 0200 BUN: 17 [RS] 0200 Creatinine: 0.82 [RS] 0200 Glucose(!): 121 [RS] 0200 CALCIUM: 9.1 [RS] 0200 eGFR (CKD-EPI)non-race dependent: 81 Hypokalemia noted. Oral potassium replacement ordered. [RS] 0200 Lipase: 37 Normal lipase [RS] 0200 TOTAL PROTEIN: 7.7 [RS] 0200 Albumin: 4.5 [RS] 0200 BILIRUBIN,TOTAL: 0.4 [RS] 0200 Alkaline phosphatase: 54 [RS] 0200 AST: 21 [RS] 0200 ALT: 17 [RS] 0200 BILIRUBIN,DIRECT: 0.1 Unremarkable LFTs [RS] 0200 White Blood Cells: 10.6 [RS] 0200 Hemoglobin: 13.0 [RS] 0200 Hematocrit: 38.7 [RS] 0200 Platelets: 318 Unremarkable CBC. Specifically no leukocytosis noted to suggest significant concern for intra-abdominal infectious process [RS] 0325 Specific gravity ZACHARY(!): >=1.030 [RS] 0325 Leukocyte esterase ZACHARY(!): Trace [RS] 0325 Nitrite ZACHARY: Negative [RS] 0325 Ph: 6.0 [RS] 0325 Protein ZACHARY(!): Trace [RS] 0325 Urine glucose ZACHARY: Negative [RS] 0325 Ketones ZACHARY: Negative [RS] 0325 Urobilinogen ZACHARY: 0.2 E.U./dL [RS] 0325 Bilirubin ZACHARY: Negative [RS] 0325 POC Urine Blood/HGB: Negative Suggestion of UTI [RS] 0330 No indication for admission at this time. A dose of Augmentin provided prior to discharge to address UTI. Prescription for same provided. Reviewed results and post care follow up instructions with the patient. [RS] ED Course User Index [RS] Jatin Perez MD Clinical Impressions as of 08/08/25 0808 Nausea vomiting and diarrhea Hypokalemia Acute cystitis without hematuria . ED Disposition ED Disposition Discharge Date/Time Sun Aug 05, 2025 3:30 AM Comment At the time of discharge, the plan has been discussed with the patient regarding the diagnosis and prognosis. All questions have been answered. Verbal discharge instructions were discussed with the patient. The patient has been advised to follow up w ith their Primary Care Provider within 1-2 days.The patient was also instructed to return to the ED if their symptoms change, worsen, new symptoms a rise or if they have any additional concerns. Medications Prescribed this Visit Sig ondansetron ODT (ZOFRAN ODT) 4 mg disintegrating tablet Dissolve 1 tablet (4 mg total) on tongue every 8 (eight) hours as needed for nausea for up to 10 doses. loperamide (IMODIUM) 2 mg capsule Take 1 capsule (2 mg total) by mouth 4 (four) times a day as needed for diarrhea. omeprazole (PriLOSEC) 40 mg capsule Take 1 capsule (40 mg total) by mouth in the morning for 14 days. . Please note that portions of this note were completed with a voice recognition program. Efforts were made to edit the dictations but occasionally words are mis-transcribed. Jatin Perez MD 08/05/25 0131 Jatin Perez MD 08/08/25 0808 documented in this encounter Plan of Treatment Not on file documented as of this encounter Goals GoalPatient Goal TypeAssociated ProblemsRecent ProgressPatient-Stated?Author <enter goal here> Marisol Rose RN Note: Evaluation of progress towards goal: snf documented as of this encounter Procedures Procedure NamePriorityDate/TimeAssociated DiagnosisCommentsGI PANEL STOOL PATHOGEN DPWYVPVBJ78/26/2025 3:24 AM EDT C DIFFICILE BY RCHBNXQ44/26/2025 3:24 AM EDT POCT NURSING URINE MACROSCOPIC KFMjigprq85/26/2025 3:21 AM EDT ER EXTRA LDHCTQFXN50/26/2025 3:18 AM EDT EXTRA TUBES BLUE HAVOkdftxj85/26/2025 1:36 AM EDT EXTRA RCRVDGkznlcn30/26/2025 1:36 AM EDT CBC WITH AUTO IYDEJZFXMLRWFVUF48/26/2025 1:33 AM EDT XJNUHKUFOP78/26/2025 1:33 AM EDT LIVER ETNNGJPUM58/26/2025 1:33 AM EDT BASIC METABOLIC BBGYPUTMV30/26/2025 1:33 AM EDT documented in this encounter Results * C difficile by PCR (08/05/2025 3:24 AM EDT)ComponentValueRef RangeTest Method Analysis TimePerformed AtPathologist SignatureTOXIGENIC C DIFFNegativeNegative 08/05/2025 10:52 AM [facility] ZEWNWNKUIQ692 VGD5Ameacccjabd NegativePresumptive Cpzgbjom20/26/2025 10:52 AM [facility] LABORATORYComment:Assay methodology is nucleic acid amplification by real-time PCR for detection of C. difficile toxin gene sequences performed on [employer] Instrument System.Specimen (Source)Anatomical Location / Laterality Collection Method / VolumeCollection TimeReceived TimeStoolFeces / Unknown 08/05/2025 3:24 AM EDT1 3:29 AM EDT Narrative Authorizing ProviderResult TypeResult StatusJatin Perez MDBODY FLUIDS AND STOOLS ORDERABLESFinal ResultPerforming OrganizationAddressCity/State/ZIP Code Phone Number [facility] [address] [place] [address], * GI Panel(stool pathogen panel) (08/05/2025 3:24 AM EDT)ComponentValueRef Range Test MethodAnalysis TimePerformed AtPathologist SignatureCAMPYLOBACTERNot DetectedNot Xcekljod84/26/2025 11:22 AM [facility] PLESIOMONASNot DetectedNot Wxogryrl59/26/2025 11:22 AM [facility] LABORATORYSALMONELLANot DetectedNot Ttmfuyfy12/26/2025 11:22 AM EDT [facility]ORATORYVIBRIONot DetectedNot Uqtlhjly99/26/2025 11:22 AM [facility] LABORATORYVIBRIO CHOLERAENot DetectedNot Diavozxg51/26/2025 11:22 AM [facility] LABORATORYY. ENTEROCOLITICANot DetectedNot Ruhpderp64/26/2025 11:22 AM [facility] LABORATORYAGGREGATIVE E COLINot DetectedNot Hivujpjy24/26/2025 11:22 AM [facility] LABORATORYPATHOGENIC E COLINot DetectedNot Xxbeoggd25/26/2025 11:22 AM [facility] LABORATORYTOXIGENIC E COLINot DetectedNot Yvblajhv67/26/2025 11:22 AM [facility] LABORATORYSHIGA TOXIN E COLINot DetectedNot Ltzlbxal90/26/2025 11:22 AM EDT [facility]ORYSHIGELLA-E COLINot DetectedNot Detected 08/05/2025 11:22 AM [facility] LABORATORYCRYPTOSPORIDIUMNot DetectedNot Njdfxjal31/26/2025 11:22 AM [facility] CYCLOSPORANot DetectedNot Wxlgoowm02/26/2025 11:22 AM [facility]ORATORYE HISTOLYTICANot DetectedNot Rkghrdml87/26/2025 11:22 AM [facility] LABORATORYGIARDIA LAMBLIANot DetectedNot Detected 08/05/2025 11:22 AM [facility] LABORATORYADENOVIRUSNot DetectedNot Qrdfmxtj98/26/2025 11:22 AM [facility] ASTROVIRUSNot DetectedNot Zjptxfqa13/26/2025 11:22 AM [facility] LABORATORYNOROVIRUSNot DetectedNot Hpnrgoso67/26/2025 11:22 AM EDT [facility]ATORYROTAVIRUS ANot DetectedNot Detected 08/05/2025 11:22 AM [facility] LABORATORYSAPOVIRUSNot DetectedNot Xizusdiz12/26/2025 11:22 AM [facility] Specimen (Source)Anatomical Location / LateralityCollection Method / Volume Collection TimeReceived TimeStoolFeces / Puqrxco2208/05/2025 3:24 AM EDT 08/05/2025 3:29 AM EDT Narrative Authorizing ProviderResult TypeResult StatusJatin Perez MDBODY FLUIDS AND STOOLS ORDERABLESFinal ResultPerforming OrganizationAddressCity/State/ZIP Code Phone Number [facility] [address] [place] [address], * (ABNORMAL) POCT Nursing Urine Macroscopic UA (08/05/2025 3:21 AM EDT)Component ValueRef RangeTest MethodAnalysis TimePerformed AtPathologist [facility] Urine Specific [place]>=1.030(A)1.010, 1.015, 1.020, 1.5672508/05/2025 3:21 AM [facility] Urine Leukocyte EsteraseTrace(A) Sxrfykxp81/26/2025 3:21 AM [facility] Urine JczyljdVfgvdlnjNtpjvsmv71/26/2025 3:21 AM [facility] Urine pH6.05.0, 6.0, 6.5, 7.0, 7.5, 8.0, 8.5, 5. 3:21 AM [facility] Urine ProteinTrace(A)Negative 08/05/2025 3:21 AM [facility] Urine Glucose KowebovlTkzwlefs79/26/2025 3:21 AM [facility] Urine OrbcqfgXiztnxslJdummofi20/26/2025 3:21 AM [facility] Urine Urobilinogen0.2 E.U./dL08/05/2025 3:21 AM [facility] Urine NyiymqepzDrpxbhluSuzkqlhm04/26/2025 3:21 AM [facility] Urine Blood/HGBNegativeNegative 08/05/2025 3:21 AM [facility] (Source) Anatomical Location / LateralityCollection Method / VolumeCollection Time Received VjltLnysu31/26/2025 3:21 AM EDT1 3:21 AM EDT Narrative Authorizing ProviderResult TypeResult StatusJatin Perez MDPOINT OF CARE TEST ORDERABLESFinal ResultPerforming OrganizationAddressCity/State/ZIP CodePhone Number [address] [place] [address], [place] * Extra Urine (08/05/2025 3:18 AM EDT)ComponentValueRef RangeTest MethodAnalysis TimePerformed AtPathologist SignatureExtra TubeAuto Figgqnom23/26/2025 5:01 AM [facility] (Source)Anatomical Location / LateralityCollection Method / VolumeCollection TimeReceived TimeUrineUrine specimen collection, clean catch / Kkbjkab6308/05/2025 3:18 AM EDT1 3:22 AM EDT Narrative Authorizing ProviderResult TypeResult StatusJatin Perez MDURINE ORDERABLESFinal ResultPerforming OrganizationAddressCity/State/ZIP CodePhone Number [address] [place] [address], [place] * Light Blue Top (08/05/2025 1:36 AM EDT)ComponentValueRef RangeTest Method Analysis TimePerformed AtPathologist SignatureExtra TubeAuto Resulted 08/05/2025 3:01 AM [facility] (Source) Anatomical Location / LateralityCollection Method / VolumeCollection Time Received TimeBloodVenous blood / Zhseijp7608/05/2025 1:36 AM EDT1 1:36 AM EDT Narrative Authorizing ProviderResult TypeResult StatusJatin PEREZ BLOOD ORDERABLES Final ResultPerforming OrganizationAddressCity/State/ZIP CodePhone Number [address] [place] [address], [place] * Lipase (08/05/2025 1:33 AM EDT)ComponentValueRef RangeTest MethodAnalysis Time Performed AtPathologist GwokyiigjUNRIWR6014 - 40 U/L1 1:52 AM EDT [facility] (Source)Anatomical Location / LateralityCollection Method / VolumeCollection TimeReceived TimeBloodVenous blood / UnknownVenipuncture / Tqimbqj6308/05/2025 1:33 AM EDT1 1:35 AM EDT Narrative Authorizing ProviderResult TypeResult StatusJatin PEREZ BLOOD ORDERABLES Final ResultPerforming OrganizationAddressty/State/ZIP CodePhone Number [address] [place] [address], [place] * Liver panel (08/05/2025 1:33 AM EDT)ComponentValueRef RangeTest MethodAnalysis TimePerformed AtPathologist SignatureTOTAL PROTEIN7.76.0 - 8.0 g/dL08/05/2025 1:59 AM EDTPDILEY RIDGE MEDICAL CENTERALBUMIN4.53.2 - 5.3 g/dL 08/05/2025 1:59 AM EDAD[facility]OSPITALBILIRUBIN,TOTAL0.40.3 - 1.2 mg/dL08/05/2025 1:59 AM EDTPDILEY RIDGE MEDICAL CENTERALKALINE MCWSEIJHVSC8564 - 130 U/L1 1:59 AM EDTPDILEY RIDGE MEDICAL CENTERAST21<=41 U/L1 1:59 AM EDTPDILEY RIDGE MEDICAL CENTER ALT17<=31 U/L1 1:59 AM [facility] BILIRUBIN,DIRECT0.1<=0.4 mg/dL08/05/2025 1:59 AM EDAVITA HEALTH SYSTEM ONTARIO HOSPITALpecimen (Source)Anatomical Location / LateralityCollection Method / VolumeCollection TimeReceived TimeBloodVenous blood / UnknownVenipuncture / Wnwqwbj6608/05/2025 1:33 AM EDT1 1:35 AM EDT Narrative Authorizing ProviderResult TypeResult StatusJatin PEREZ BLOOD ORDERABLES Final ResultPerforming OrganizationAddressCity/State/ZIP CodePhone Number [facility] [address] [facility] [place] [address], * (ABNORMAL) Basic Metabolic Panel (08/05/2025 1:33 AM EDT)ComponentValueRef RangeTest MethodAnalysis TimePerformed AtPathologist MwsnzsvbfDNJBCO572542 - 146 mmol/L1 1:59 AM [facility]ITALPOTASSIUM 3.0(L)3.5 - 5.0 mmol/L1 1:59 AM [facility]ITALCHLORIDE114(H)98 - 109 mmol/L1 1:59 AM [facility]PITALCARBON OSLERCU45(L)22 - 32 mmol/L1 1:59 AM EDT [facility]ONANION GAP95 - 15 mmol/L1 1:59 AM [facility]ITALBLOOD UREA EBYZHJIA461 - 27 mg/dL 08/05/2025 1:59 AM [facility]ITALCREATININE0.820.40 - 1.00 mg/dL08/05/2025 1:59 AM [facility]ITALComment: METHOD TRACEABLE TO IDMS DKPIFJMHJBCUPLC447(H)65 - 99 mg/dL08/05/2025 1:59 AM [facility]ITALCALCIUM9.18.5 - 10.5 mg/dL08/05/2025 1:59 AM [facility]OSPITALEGFR Non-Race Ccnssjdyg54>=60 ml/min/1.73sq.m1 1:59 AM [facility] Comment: eGFR not reported due to non-numeric value for Creatinine. Reported eGFR is based on the CKD-EPI 2020 equation that does not use a race coefficient. Specimen (Source)Anatomical Location / LateralityCollection Method / Volume Collection TimeReceived TimeBloodVenous blood / UnknownVenipuncture / Unknown 08/05/2025 1:33 AM EDT1 1:35 AM EDT Narrative Authorizing ProviderResult TypeResult StatusJatin PEREZ BLOOD ORDERABLES Final ResultPerforming OrganizationAddressCity/State/ZIP CodePhone Number [facility] [place] [address] [facility] [place] [address], * (ABNORMAL) CBC auto differential (08/05/2025 1:33 AM EDT)ComponentValueRef RangeTest MethodAnalysis TimePerformed AtPathologist MloblgpfpLFL43.64 - 11 x10E9/L1 1:42 AM [facility]RBC Count4.17 3.8 - 5.2 X10E12/L1 1:42 AM [facility] Lzukjomiik34.011.7 - 15.5 g/dL08/05/2025 1:42 AM [facility]ITALHematocrit38.735 - 47 %08/05/2025 1:42 AM [facility]MCV9380 - 100 fL08/05/2025 1:42 AM [facility]MCH31.327 - 34 pg08/05/2025 1:42 AM [facility]MCHC33.732 - 36 g/dL08/05/2025 1:42 AM [facility]ITALRDW13.111.5 - 15 %08/05/2025 1:42 AM [facility]OS[facility]ITALPlatelet Njeda486260 - 450 X10E9/L1 1:42 AM EDT [facility]MPV7.17 - 12 fL08/05/2025 1:42 AM EDT [facility]ONNeutrophils %74.6%08/05/2025 1:42 AM EDT [facility]ONLymphocytes %14.0%08/05/2025 1:42 AM EDT [facility] HOSPITALMonocytes %7.2%08/05/2025 1:42 AM EDT [facility] HOSPITALEosinophils %4.0%08/05/2025 1:42 AM EDT [facility]Basophils %0.2%08/05/2025 1:42 AM EDT [facility]ONNeutrophils Absolute (A)7.9(H)1.5 - 6.6 10*3/uL08/05/2025 1:42 AM [facility]ITALLymphocytes Absolute1.51.0 - 3.5 10*3/uL08/05/2025 1:42 AM [facility]TPTHE [facility]ITALMonocytes Absolute0.80.0 - 0.9 10*3/uL08/05/2025 1:42 AM EDTPTHE [facility]ITALEosinophils Absolute0.40.0 - 0.4 10*3/uL08/05/2025 1:42 AM [facility]ITALBasophils Absolute0.00.0 - 0.2 10*3/uL08/05/2025 1:42 AM [facility]ITALDifferential TypeAUTOMATED ZUMLQLKDIPSG56/26/2025 1:42 AM [facility]pecimen (Source)Anatomical Location / LateralityCollection Method / VolumeCollection TimeReceived TimeBloodVenous blood / UnknownVenipuncture / Sgnbpop0008/05/2025 1:33 AM EDT1 1:35 AM EDT Narrative Authorizing ProviderResult TypeResult StatusJatin Perez MDLAB BLOOD ORDERABLES Final ResultPerforming OrganizationAddressCity/State/ZIP CodePhone Number [facility] [address] [facility] [place] [address], documented in this encounter Visit Diagnoses Diagnosis Nausea vomiting and diarrhea- Primary Hypokalemia Hypopotassemia Acute cystitis without hematuria documented in this encounter Administered Medications Medication OrderMAR ActionAction DateDoseRateSite amoxicillin-pot clavulanate (AUGMENTIN) 875-125 mg per tablet 1 tablet 1 tablet, oral, Once, On 08/05/25 at 0328, For 1 dose, Indication: UTI Given08/05/2025 3:33 AM EDT1 tablet famotidine (PF) (PEPCID) injection 20 mg 20 mg, intravenous, Once, On 08/05/25 at 0126, For 1 dose, Dilute to total volume of 5 mL with 0.9% sod chl and administer IVP over 2 minutes. Given08/05/2025 1:34 AM EDT20 mg ondansetron (PF) (ZOFRAN) injection 4 mg 4 mg, intravenous, Once, On 08/05/25 at 0126, For 1 dose, Intravenous administration preferred to be given over 2-5 minutes. Given08/05/2025 1:34 AM EDT4 mg potassium chloride (KAYCIEL) 20 mEq/15 mL solution 40 mEq 40 mEq, oral, Once, On 08/05/25 at 0201, For 1 dose, Must dilute before use - Mix in 3-8 ouncesof water or juice before administration When administering in feeding tube, flush before and after per policy and monitor potassium levels Given08/05/2025 2:08 AM EDT40 mEq sodium chloride 0.9 % bolus 1,000 mL, intravenous, at 984 mL/hr, Administer over 61 Minutes, Once, On 08/05/25 at 0126, For1 dose New Bag08/05/2025 1:36 AM EDT1,000 mL984 mL/hr sodium chloride 0.9 % flush 3 mL 3 mL, intravenous, As needed, line care, before and after each intermittent use, Starting on 08/05/25 at 0125 sodium chloride 0.9 % flush 3 mL 3 mL, intravenous, Every 12 hours scheduled, First dose on 08/05/25 at 0126 documented in this encounter Active and Recently Administered Medications Times are shown in EDT.Medication Order// amoxicillin-pot clavulanate (AUGMENTIN) 875-125 mg per tablet 1 tablet (COMPLETED) 1 tablet, oral, Once, On 08/05/25 at 0328, For 1 dose, Indication: UTI * 0333 (Given - Provider: Zach Mcdaniels, RN) famotidine (PF) (PEPCID) injection 20 mg (COMPLETED) 20 mg, intravenous, Once, On 08/05/25 at 0126, For 1 dose, Dilute to total volume of 5 mL with 0.9% sod chl and administer IVP over 2 minutes. * 0134 (Given - Provider: Zach Mcdaniels, RN) ondansetron (PF) (ZOFRAN) injection 4 mg (COMPLETED) 4 mg, intravenous, Once, On 08/05/25 at 0126, For 1 dose, Intravenous administration preferred to be given over 2-5 minutes. * 0134 (Given - Provider: Zach Mcdaniels, RN) potassium chloride (KAYCIEL) 20 mEq/15 mL solution 40 mEq (COMPLETED) 40 mEq, oral, Once, On 08/05/25 at 0201, For 1 dose, Must dilute before use - Mix in 3-8 ouncesof water or juice before administration When administering in feeding tube, flush before and after per policy and monitor potassium levels * 0208 (Given - Provider: Zach Mcdaniels, RN) sodium chloride 0.9 % bolus (COMPLETED) 1,000 mL, intravenous, at 984 mL/hr, Administer over 61 Minutes, Once, On 08/05/25 at 0126, For1 dose * 0136 (New Bag - Provider: Zach Mcdaniels, RN) * 0237 (Stop Bag - Provider: Zach Mcdaniels, RN) sodium chloride 0.9 % flush 3 mL 3 mL, intravenous, Every 12 hours scheduled, First dose on 08/05/25 at 0126 * 0126 (Not Given - Provider: Zach Mcdaniels, RN - Reason: See Provider Order) Medication Order/ sodium chloride 0.9 % flush 3 mL 3 mL, intravenous, As needed, line care, before and after each intermittent use, Starting on 08/05/25 at 0125 documented in this encounter Additional Health Concerns InfectionOnset DateLast IndicatedResolved TimeEnteric Rule-Out08/05/2025 10:52 AM EDTAssessmentNoted TimePHQ-9 Depression Total Score: 5004/30/2021 1:10 PM EDTA Body Mass Index follow-up plan has been documented for the khcgdic9209/21/2021 6:10 PM ESTdocumented as of this encounter Care Teams Team MemberRelationshipSpecialtyStart DateEnd Date Jacque Daniel, SURVEY PARTY CHIEF-[employer]EN[employer] TRANSLATOR [address] [facility] [address] [facility] [place] [address] PCP - GeneralNurse Practitioner06/19/25documented as of this encounter
--- OUTSIDE RECORDS SUMMARY | 2025-08-15 05:12 | XMS_ITS | Continuity of Care Document ---
Author Organization [facility] Address [address] [place] [address] Phone Care Team Providers Care Vision Mixer Name Role Phone Julieta Sanchez HORSE RACE TIMER-C Primary Care Provid er Jacque Daniel HORSE RACE TIMER-C Attending Provider Jacque Daniel HORSE RACE TIMER-C Primary Care Provider Care Teams Patient Care Team Team Status: Active Member Role/Relationship Status Dates Jacque Daniel HORSE RACE TIMER-C Primary Care Provider Active Visit Care Team Team Status: Inactive Member Role/Relationship Status Dates Julieta Sanchez NP-C Primary Care Provider Ac tive Start: June 27, 2025 End: June 27, 2025Jacque Daniel NP-CAttending ProviderActiveStart: June 27, 2025 End: June 27, 2025 Visit Care Team Team Status: Inactive Member Role/Relationship Status Dates Julieta Sanhcez NP-C Primary Care Provider Ac tive Start: July 18, 2025 End: July 18, 2025Jacque Daniel NP-CAttencelina ProviderActiveStart: July 18, 2025 End: July 18, 2025 Patient Care Team Team Status: Inactive Member Role/Relationship Status Dates Jacque Daniel HORSE RACE TIMER-C Primary Care Provider Active Start: August 15, 2025 End: August 15, 2025Jacque Daniel NP-CAttencelina ProviderActiveStart: August 15, 2025 End: August 15, 2025 Chief Complaint and Reason for Visit Chief Complaint Admit Date [facility] F[facility]U [facility] June 8:07am 2M July 18, 2025 2: 33pm [facility] f/u-nausea, vomitting, diar leslie August 15, 2025 9:30am Reason for Visit Admit Date Concussion June 27, 2025 8:07am Headache, chronic migraine without aura, intractable June 27, 2025 8:07am Acute sinusitis July 18, 2025 2: 33pm Essential hypertension July 18, 2025 2:33pm AARON (generalized anxiety disorder) Octob er 2024 2:33pm GERD with stricture without esophagitis July 18, 2025 2:33pm Hypothyroidism July 18, 2025 2: 33pm Mixed hyperlipidemia July 18, 2025 2 :33pm Contusion of right foot including toes N ov2024 9:30am Diarrhea August 15, 2025 9 :30am Essential hypertension August 15 9:30am GERD with stricture without esophagitis August 15, 2025 9:30am Hypokalemia August 15, 2025 9 :30am Nausea and vomiting August 15, 2025 9 :30am UTI (urinary tract infection) August 152024 9:30am Allergies, Adverse Reactions, Alerts Allergen Type Severity Reaction Last Updated Verified Status Sulfa (Sulfonamide Antibiotics) Allergy Unknown hives August 15 9:40am Yes Active Social History Smoking Status Status Start Date End Date Date of Observa tion Never smoked tobacco (finding) September 28, 2024 11:55am Observation Status Observation Response Date of Response Legal Sex [facility] (finding) [facility] 1965 Family History Relationship Condition Age at Onset Recorded Date/T samantha father Unknown motherDeceasedUnknown Problems Active Problems Problem Diagnosis/Recorded Date Onset Date Stat us UTI (urinary tract infection) August 15, 2025 6:27a m Unknown Active Major depression July 10, 2025 5:00am Unknown Active GERD with stricture without esophagitis June 4:59am Unknown Active RICHA (obstructive sleep apnea) July 10, 2025 5:0 0am Unknown Active AARON (generalized anxiety disorder) July 10 4:57am Unknown Active PTSD (post-traumatic stress disorder) July 10, 2025 4:57am Unknown Active Chronic migraine July 10, 2025 4:58am Unknown Active Breast cancer screening by mammogram July 10, 2 025 4:59am Unknown Active CAD in [place] artery July 10, 2025 4:58am Unkno wn Active Unspecified convulsions July 10, 2025 5:01am Un known Active Shortness of breath September 13, 2024 5:55pm Unknown Active Brain tumor (benign) July 10, 2025 4:57am Unkno wn Active Chronic pain July 10, 2025 4:58am Unknown Active Nasal vestibulitis July 10, 2025 5:00am Unknown Active Acute sinusitis July 18, 2025 2:07pm Unknown Active Cervical stenosis of spine July 10, 2025 5:00am Unknown Active Concussion June 27, 2025 8:01am Unknown Active Contusion of right foot including toes August 15, 2 025 10:03am Unknown Active Diarrhea August 15, 2025 6:25am Unknown Ac tive Dyspnea July 10, 2025 4:37pm Unknown Active Cervico-occipital neuralgia of right side July 10, 2025 4:58am Unknown Active Hypothyroidism August 02, 2024 1:37pm Unknown Active Mixed hyperlipidemia July 10, 2025 4:59am Unkno wn Active Cervical spondylosis July 10, 2025 4:57am Unkno wn Active Moderate persistent asthma July 10, 2025 5:00am Unknown Active RLS (restless legs syndrome) July 10, 2025 5:00 am Unknown Active Vertigo July 10, 2025 5:01am Unknown Active Essential hypertension July 10, 2025 4:59am Unk nown Active Arthropathy of shoulder region October 26, 2024 4:14 pm Unknown Active History of alcohol abuse July 10, 2025 4:57am U nknown Active Osteoarthritis of right knee July 10, 2025 5:01 am Unknown Active Headache, chronic migraine w ithout aura, intractable June 27, 2025 8:02am Unknown Active Neck pain October 26, 2024 2:04pm Unknown Ac tive Nausea and vomiting August 15, 2025 6:25am Unknown Active Hypokalemia August 15, 2025 6:26am Unknown Ac tive Medications Medication Status Dose Units Route Directions Qty Days Refills S tart Date Stop Date End Date Reason(s) Instructions Adherence Albuterol Sulfate 2.5 mg /3 mL (0.083 %) solution for nebulization Active 2.5 MG INHALATION EVERY 4-6 HOURS as needed for shortness of breath or wheezing 90 1September 2024 11:00pmDyspnea Dyspnea, unspecifiedComplies with drug therapyAtorvastatin 20 mg srmgseMfbpgw14 DGALNpvyq392Elwzugs 2024 11:01amComplies with drug therapy Jsrdrcpmrel-Qbfdpsoqd-Fjidladj (Trelegy Ellipta) 100-62.5-25 mcg blister with dgoqjtBfrpyn6KXTLFMRXYBRIMNhpey420Hrtkwkb 2024 10:57amModerate persistent asthma Moderate persistent asthma, uncomplicatedComplies with drug therapyAmitriptyline 100 mg tabletActiveMGPOUniversity Of [facility] Health 2023 11:00pmComplies with drug therapy Albuterol Sulfate 90 mcg/actuation HFA aerosol inhalerDiscontinuedINHALATION August 01, 2024 11:00pmJanuary 2024 1:45pmMeloxicam 15 mg tablet [facility]continuedRe[facility] 2023 11:00pmJanuary 2024 1:47pmVenlafaxine 150 mg capsule,extended release 24hrDiscontinuedPOUniversity Of [facility] Health 2023 11:00pm June 27, 2025 8:07amLevothyroxine 112 mcg tabletDiscontinuedMCGPOOctuniversity of [facility] 2023 11:00pmDecember 2023 5:20pmTopiramate 200 mg tabletDiscontinued MGPOUn[facility] Of [facility] 2023 11:00pmSept2024 8:07amRopinirole 4 mg tablet ActiveRehabilitation Hospital of [facility] 2023 11:00pmComplies with drug therapyVerapamil 120 mg tablet extended releaseDiscontinuedMGPOUniversity Of [facility] Health 2023 11:00pmJanuary 2024 1:47pmErenumab-Aooe (Aimovig Autoinjector) 140 mg/mL auto-injector DiscontinuedSUBCUTUniversity Of Michigan Health 2023 11:00pmAugust 15, 2025 9:41am Cyclobenzaprine 10 mg tabletDiscontinuedMGPOOctober 2023 11:00pmSeptember 2024 6:42amZolpidem 10 mg tabletActiveMGPOOct2023 11:00pm Complies with drug therapyAtorvastatin 20 mg tabletDiscontinuedMGPOOct2023 11:00pmOctober 2024 11:02amCephalexin 500 mg dlcjwfiEaeuljzshhre326DQ POTwice lrsvx1380Fwqzzps 22nd, 2024 11:00pmDecember 2023 5:19pm Cyclobenzaprine 10 mg pmqmiiAixsqbtjvfcl53EMBNLrriv times daily as needed July 07, 2025 6:39amNoveer 2024 10:04amLevothyroxine 88 mcg ismwchdUmlxgg52ZYHBXHszdcIrwlysqo 4th, 2024 12:00amComplies with drug therapy Omeprazole 40 mg capsule,delayed release(DR/EC)Dbxdxp24IJKFJagndTcqayvab 4th, 2024 12:00amComplies with drug therapyAlbuterol Sulfate 90 mcg/actuation HFA aerosol obcvndaWehzbg9VVOQQPIMGHQYRNSEWB 4-6 HOURS as needed for shortness of breath or wheezing8.50Dece2023 12:00amComplies with drug therapy Celecoxib 100 mg twernoqQoxeig163VNFNXuotn dailyOctober 26, 2024 12:00am Complies with drug therapyAmoxicillin-Pot Clavulanate 875-125 mg tablet Lhzxzjkjving4PWZREMgmfb cshen005Llakomu 7th, 2025 11:00pmNov2024 9:40amAcute sinusitis Acute sinusitis, unspecifiedtake with foodCyclobenzaprine 10 mg qcvzqxMxscho57DO POThree times daily as needed for muscle vsgyn539Owypmvlv2024 10:03am Chronic pain Other chronic painComplies with drug therapyPotassium Gluconate 595 mg (99 mg) lrtrpxRebnjo206JEQOJoctuJurwriwfs 26th, 2025 11:00pmComplies with drug therapy Venlafaxine (Effexor Xr) 75 mg capsule,extended release 00biTrfumk76LDDPUvyzl June 26, 2025 11:00pmComplies with drug therapyMetoprolol Succinate 50 mg tablet extended release 24 spOwjiiv32FZFJBiazdKrrdzksmw 16th, 2025 11:00pm Complies with drug therapySumatriptan Succinate 50 mg rqvvneWsyvci5OZ.COMPLEX June 26, 2025 11:00pmtake 1 tab at onset of headache; if no relief may repeat 1 tab after at least 2 hrs; max = 4 tabs/24 hr POComplies with drug therapyTopiramate 200 mg noceduQggejx503RQGXLmlaw dailySept2024 11:00pm1 am, 2 pmComplies with drug therapyFluticasone Propionate (Flonase Allergy Relief) 50 mcg/actuation spray,eaoiomvhotSzktiv7ZZXGZVKJVQKXWFJPcjsu June 26, 2025 11:00pmadminister into each nostrilComplies with drug therapyLoratadine (Allergy Relief (Loratadine)) 10 mg fmjclaVwtyfu45PZMTKscyl June 26, 2025 11:00pmComplies with drug therapy Bfdwroknapg-Fxqqgrzpo-Eybcswmj (Trelegy Ellipta) 100-62.5-25 mcg blister with hpazjmYsznccmqjtxk4LYFNCLYVDOMGEQzraiCrsctdsyv 16th, 2025 11:00pmOctober 2024 10:58am Vital Signs Vital Reading Result Reference Range Collection Date/Time Height 65 [in_i] June 27, 2025 7:21mtDsfnwk68.32 kgSept2024 7:31amBody Bkchjzkewzy91.8 [degF]97.6-99.0Sept2024 7:31amHeart Rate90 /min 60-100pt2024 7:31amRespiratory rate18 /qby37-65Mlcdvxvsz 17th, 2025 7:31amOxygen saturation by Pulse zosdilyv54 %95-100pt2024 7:31amBP Abdwjmlj559 mm[Hg]100-140Sept2024 7:31amBP Phzglejtu68 mm[Hg]60-100Sept2024 7:31amBMI (Body Mass Index)26.2 kg/r8Xvcfgqsin2024 7:12gyVaazji79 [in_i]July 18, 2025 1:83gqQcsuna11.08 kgOctober 2024 1:43pmBody Jajhxcjisnl60.1 [degF]97.6-99.0October 2024 1:43pm Heart Rate72 /wfh50-612Uvzllcd 2024 1:43pmRespiratory rate16 /czh79-77 July 18, 2025 1:43pmOxygen saturation by Pulse ameotslm04 %95-100October 2024 1:43pmBP Nsmhbvub202 mm[Hg]100-140October 2024 1:43pmBP Diastolic 72 mm[Hg]60-100October 2024 1:43pmBMI (Body Mass Index)25.7 kg/p9Mmidhdw 2024 1:08auKhxnrl71 [in_i]August 15, 2025 9:30roAocdjx70.47 kgNovember 2024 9:43amBody Eshciukpxbq12.9 [degF]97.6-99.0Nov2024 9:43am Heart Rate58 /phm21-977Srymabfm 2024 9:43amRespiratory rate13 /ooi17-62 August 15, 2025 9:43amOxygen saturation by Pulse dtokcnog77 %95-100November 2024 9:43amBP Iafhhjij47 mm[Hg]100-140Nov2024 9:43amBP Diastolic 66 mm[Hg]60-100November 2024 9:43amBMI (Body Mass Index)25.8 kg/e9Rhxzwxsy2024 9:43am Advance Directives Advance Directive Response Recorded Date/ Time Advance Directives No September 11:55am Insurance Providers Guarantor Nory Brandt Address [address] [place] [id number] Info.Home Phone: Payer Group Member ID Coverage Type Subscriber Relationship to Subscriber Effective Date Expiration Date MMO Id: [id number] Mackey I Id: [id number] [address] [facility] [id number] Home Phone: Email: Declined 2019SeHan [place] [employer] Op Id: [id number] Encounters Encounter Location(s) Arrival/Admit Date Discharge/Departure Date Discharge/Departure Disposition Provider(s) Departed Physician/ Provider Office Visit -[facility] June 27, 2025 8:07am June 27, 2025 8:58am Discharged to home care or self care (routine discharge) MICK Vasques Departed Physician/ Provider Office Visit -[facility] July 18, 2025 2:33pm July 18, 2025 3:17pm Discharged to home care or self care (routine discharge) MICK Vasques Departed Physician/ Provider Office Visit -[facility] August 15, 2025 9:30am August 15, 2025 10:09am Discharged to home care or self care (routine discharge) MICK Vasques Recent Diagnosis Onset Date Admit Date Concussion Unknown June 27, 2025 8:07am Headache, chronic migraine w ithout aura, intractable Unknown June 27, 2025 8:07am Acute sinusitis Unknown July 18 2:33pm Essential hypertension Unknown July 182024 2:33pm AARON (generalized anxiety disorder) Unknown July 18, 2025 2:33pm GERD with stricture without esophagitis Unknown July 18, 2025 2:33pm Hypothyroidism Unknown July 18 2:33pm Mixed hyperlipidemia Unknown July 2:33pm Contusion of right foot including toes Unknown August 15, 2025 9:30am Diarrhea Unknown August 15 9:30am Essential hypertension Unknown August 15, 2025 9:30am GERD with stricture without esophagitis Unknown August 15, 2025 9:30am Hypokalemia Unknown August 15 9:30am Nausea and vomiting Unknown August 9:30am UTI (urinary tract infection) Unknown No vem2024 9:30am Assessments Diagnosis Onset Date Resolution Status Admit Date Concussion acuteSeptember 2024 8:07amHeadache, chronic migraine without aura, intractableacuteSeptember 2024 8:07amAcute sinusitisacuteOctober 2024 2:33pmEssential hypertensionacuteOctober 2024 2:33pmGAD (generalized anxiety disorder)acuteOctober 2024 2:33pmGERD with stricture without esophagitisacuteOctober 2024 2:33pmHypothyroidismacuteOctober 2024 2:33pmMixed hyperlipidemiaacuteOctober 2024 2:33pmContusion of right foot including toesacuteNovember 2024 9:30amDiarrheaacuteNovember 2024 9:30amEssential hypertensionacuteNovember 2024 9:30amGERD with stricture without esophagitisacuteNovember 2024 9:30amHypokalemiaacuteNovember 2024 9:30amNausea and vomitingacuteNov2024 9:30amUTI (urinary tract infection)acuteNov2024 9:30am Plan of Treatment Author Jacque [facility] 2024 2:08pmPlease check blood pressure daily and record DASH diet Limit caffeine Take medication as directed Contact office if chest pain, pressures, dizziness, shortness of breath, swelling in the legs Recommend slow position changes if you develop dizziness with position changes meds: metoprolol current meds: effexor Recommendations: freq small meals, nothing to eat or drink at least 2 hours prior to bed, limit caffeine, alcohol, as well as spicy foods. Meds to limit or avoid if possible: NSAIDS Elevate the HOB if possible current meds: omeprazole on statin therapy check labs yearly and prn dose changes recommend low fat diet and avoidance processed foods on levothyroxine check labs yearly and prn dose changes or change in sxs had sxs about 2 weeks ago, then gone for a week or so, then back again at this point some of her current sxs would point to viral, the recurrence of green nasal and sinus pressure w intermittent nose bleeds indicate acute sinusitis, I will treat with augmentin BID for 10 days fluids, rest, OTC meds to treat sxs fu if not better Author Jacque [facility] 2024 10:08amPlease check blood pressure daily and record DASH diet Limit caffeine Take medication as directed Contact office if chest pain, pressures, dizziness, shortness of breath, swelling in the legs Recommend slow position changes if you develop dizziness with position changes meds: metoprolol Recommendations: freq small meals, nothing to eat or drink at least 2 hours prior to bed, limit caffeine, alcohol, as well as spicy foods. Meds to limit or avoid if possible: NSAIDS Elevate the HOB if possible current meds: omeprazole was evaluated in [facility] on 08/05/25 with 5 day hx NVD resolved resolved check labs no further s/s UTI ice, matt tape elevate Author Jacque Daniel [facility] HospitalAuthoredSeptember 2024 8:09amdiscuss normal progression and sxs of concussion she does treat with Dr Fernandez for her migraines cognitive rest, fluids, she is instructed to continue with dr fernandez for management under the care of neurology for this Future Tests Future scheduled test information is unavailable Pending Tests Test Name Ordered Date Scheduled Date Comprehensive Metabolic Panel August 15, 2025 6:26am XR foot RT min 3V*August 15, 2025 10:03am Future Visits Future appointment information is unavailable Future Procedures Procedure Name Ordered Date Scheduled Date Free T4 (Free Thyroxine) July 18, 2025 2:16p m Thyroid Stimulating HormoneOct2024 2:16pm Future Medications Future medication information is unavailable Patient Instructions Patient instructions are unavailable
--- OUTSIDE RECORDS SUMMARY | 2025-08-15 10:35 | XMS_ITS | Clinical Summary ---
Author Organization [facility] Address [address] [place] [address] Care Team Providers Care Rug Cleaner Hand Name Role Phone Dagoberto Concepcion MD Unavailable Melissa Burkett MD Unavailable Jacque Daniel NP Unavailable [phone] Allergies Active AllergyReactionsCriticalityNoted DateCommentsAcetaminophen-CodeineRashLow 05/20/20165011DxepwpeHxrvPmh29/08/2016 Other Reaction(s): Trouble Breathing KetorolacHallucinations,Hives07/14/20103347PdlwbowobjpbFungn30/04/2010Sulfa AntibioticsHives,SplwJcn3407/14/2010 Other Reaction(s): Hives Sulfamethoxazole-JfuxzajgafpwVkzfDvj43/06/6725KaruuulbglFagmp40/04/2010 Medications MedicationSigDispense QuantityRefillsLast FilledStart DateEnd DateStatus albuterol (2.5 MG/3ML) 0.083% nebulizer solution INHALE 3 ML VIA NEBULIZER THREE TIMES DAILY, NEEDED 30 DAYSActive albuterol HFA 90 mcg/act inhaler Inhale 2 puffs every 6 (six) hours if urcyzs435Active rOPINIRole (Requip) 4 MG tablet Indications:RLS (restless legs syndrome)Take 1 tablet (4 mg) by mouth 1 (one) time each day at the same time 90 tablet 6Active venlafaxine XR (Effexor XR) 75 MG 24 hr capsule Indications:Major depressive disorder, recurrent episode, moderate (HCC)Take 1 capsule (75 mg) by mouth Daily Take with food. 90 capsule 5Active cyclobenzaprine (Flexeril) 10 MG tablet Indications:Cervical spondylosis without myelopathyTAKE 1 TABLET (10 MG) BY MOUTH 3 (THREE) TIMES A DAY NEEDED FOR MUSCLE SPASMS 90 tablet 5Active loratadine (Claritin) 10 MG tablet Indications:Chronic rhinitisTake 1 tablet (10 mg) by mouth Daily 90 tablet 5Active fluticasone (Flonase) 50 MCG/ACT nasal spray Indications:Chronic rhinitisAdminister 2 sprays into each nostril Daily Shake gently. Before first use, prime pump. After use, clean tip and replace cap. 48 mL 5Active levothyroxine (Synthroid, Levoxyl) 88 MCG tablet Indications:Hypothyroidism, unspecified typeTake 1 tablet (88 mcg) by mouth in the morning. Take before meals. 90 tablet 5Active Xdovfkmqdjz-Yumfvbyle-Akitvk (Trelegy Ellipta) 100-62.5-25 MCG/ACT aerosol powder Indications:Moderate persistent asthma without complication (HCC)Inhale 1 puff Daily Rinse mouth after use 60 each 5Active atorvastatin (Lipitor) 20 MG tablet Indications:Mixed hyperlipidemiaTake 1 tablet (20 mg) by mouth at bedtime 90 tablet 5Active omeprazole (PriLOSEC) [address] capsule Indications:Gastroesophageal reflux disease, unspecified whether esophagitis presentTake 1 capsule (40 mg) by mouth in the morning. Take before meals. Do not crush or chew. 90 capsule 5Active metoprolol succinate XL (Toprol-XL) 50 MG 24 hr tablet Indications:Migraine with aura, intractable, with status migrainosusTake 1 tablet (50 mg) by mouth in the morning. 30 tablet 50/506Active SUMAtriptan (Imitrex) 50 MG tablet Indications:Migraine with aura, intractable, with status migrainosus1 tab prn migraine. May repeat once in 2 hrs. Max 2/KERR 4/wk 9 tablet 3085Active celecoxib (CeleBREX) 100 MG capsule Indications:Degenerative disc disease, cervicalTAKE 1 CAPSULE (100 MG) BY MOUTH IN THE MORNING AND BEFORE BEDTIME 60 capsule 3095Active zolpidem (Ambien) 10 MG tablet Indications:Insomnia, psychophysiologicalTake 1 tablet (10 mg) by mouth as needed at bedtime for sleep 30 tablet /503207/6Active topiramate (Topamax) 200 MG tablet Indications:Migraine with aura, intractable, with status migrainosusTAKE 1 TABLET BY MOUTH IN THE MORNING AND THEN 2 TABLETS BY MOUTH AT NIGHTTIME 270 tablet 1105Active amitriptyline (Elavil) 100 MG tablet Indications:Migraine with aura, intractable, with status migrainosusTAKE 1 TABLET BY MOUTH AT BEDTIME 90 tablet 1115Active topiramate (Topamax) 200 MG tablet Indications:Migraine with aura, intractable, with status migrainosus1 tab QAM and 2 tabs QPM 270 tablet 51Discontinued amitriptyline (Elavil) 100 MG tablet Indications:Migraine with aura, intractable, with status migrainosusTake 1 tablet (100 mg) by mouth at bedtime 30 tablet 5110/13/2024Discontinued Potassium Gluconate 595 (99 K) MG tablet Indications:Cervical spondylosis without myelopathyTake 1 tablet by mouth in the morning. 90 tablet Expired Active Problems ProblemNoted DateDiagnosed DateCervical paraspinal muscle spasm05/29/2025 Assessment & Plan (05/29/2025 11:41 AM EDT): Must incr home PT to 15-20 min/day. May need to return to PT. Trigger point of neck05/29/2025 Assessment & Plan (05/29/2025 11:41 AM EDT): Trig point injections R upper cervical + paraspinals - dexa. Moderate persistent asthma without acoaosmwltlx67/28/2025 Assessment & Plan (05/07/2025 11:00 AM EDT): Add ronald Goodman, #1 sample MV9W, exp 11/05 Use albuterol prn 8 weeks Acute non-recurrent oxuxttcwfqna15/29/2025 Assessment & Plan (02/06/2025 12:10 PM EDT): Atb, fluids, rest, saline irrigation Fu if not better Mixed anzldougfkjjkm21/01/2025 Assessment & Plan (01/09/2025 6:30 AM EDT): On statin therapy Check labs yearly and prn dose changes Other specified dgtdagm6501/09/2025Intervertebral disc stenosis of neural canal of cervical yuaoxm3701/02/2025 Assessment & Plan (01/09/2025 10:21 AM EDT): Pain mgmt injections Acute cystitis without sdhapeuvq64/06/2024 Assessment & Plan (08/16/2024 5:10 PM EST): Was seen at [facility] on 08/02/2024 for UTI symptoms. Was treated with Keflex X7 days. Completed treatment on 08/09 Reports today symptoms: Admits: Morning urgency Denies: Burning with urination Odor in urine Blood in urine UA in office today was negative. PTSD (post-traumatic stress disorder)08/04/2024Wellness cmdejryzieu01/07/2024 Assessment & Plan (07/17/2024 2:24 PM EDT): I have reviewed Ht/Wt/BMI, I have reviewed recommended vaccines for patient's age, as well as all recommended screenings I have reviewed available care everywhere notes as well. I have recommended eating a balanced diet,as well as activity as chronic conditions allow It is recommended that the patient have a yearly eye exam, as well as twice a year dental exams Fu in this office for wellness on a yearly basis Diet: Eat three meals per day. Breakfast, lunch, and dinner. Avoid snacking. Avoid eating after 5/6pm. Daily protein GOAL 35% of your intake; 30g per meal. Daily calorie GOAL 1,800-2,000 per day. Consider tracking your food intake on MyFtinessPal or LoseIt Water: Increase water intake; GOAL 64-80oz of water per day. Exercise: Increase activity. GOAL 30 minutes, 5 days per week. START SLOW. Start with 5 minutes, 5 days per week. Then increase to 10 days, 5 days per week. Continue to increase until you reach the goal. Increase steps; GOAL 10,000 steps per day. Be sure to get adequate sleep; GOAL 6-8 hours of sleep per night. Encounter for screening mammogram for malignant neoplasm of btrxji3407/17/2024 Insomnia, nkigwrsceqxmizjdeoz58/27/2024 Assessment & Plan (05/29/2025 11:41 AM EDT): (Continue current regimen.) Assessment & Plan (01/16/2025 11:05 AM EDT): (Continue current regimen.) Assessment & Plan (01/09/2025 6:21 AM EDT): Takes ambien for sleep per Dr Carolina HUNTER reviewed Assessment & Plan (11/07/2024 11:23 AM EST): (Continue current regimen.) Assessment & Plan (10/10/2024 2:49 PM EST): (Continue current regimen.) Assessment & Plan (06/06/2024 12:56 PM EDT): (Re)start zolpidem 10 hs. Poor sleep gmjmsxy0506/06/2024 Assessment & Plan (01/16/2025 11:05 AM EDT): (Continue sleep hygiene improvements as prev discussed.Limit napping!) Assessment & Plan (11/07/2024 11:23 AM EST): (Continue sleep hygiene improvements as prev discussed.) Assessment & Plan (10/10/2024 12:59 PM EST): Sleep hygiene improvements as discussed. Assessment & Plan (06/06/2024 12:56 PM EDT): Sleep hygiene improvements as discussed. 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 R parietal. Not a neoplasm of brain. Assessment & Plan (02/29/2024 12:03 PM EDT): --- Hx of. R parietal. Not a neoplasm of brain. (No tx necessary.) Migraine with aura, intractable, with status urpukpbbvol08/02/2023 Assessment & Plan (05/29/2025 11:41 AM EDT): Pred taper. Incr metoprolol ER to 50 qam. Assessment & Plan (01/16/2025 11:12 AM EDT): (Continue current regimen.) Cons BTX Assessment & Plan (11/07/2024 11:23 AM EST): Add Mg 250. After 1 w try incr to 500, remain on if tolerated. Assessment & Plan (10/10/2024 12:59 PM EST): (Continue current regimen.) Pt/husb asked for handicapped placard. Explained that the diagnoses I treat do not qualify her for this. Orders: SUMAtriptan (Imitrex) 50 MG tablet; Take 1 tablet (50 mg) by mouth 1 (one) time if needed for migraine Assessment & Plan (06/06/2024 1:00 PM EDT): (Continue current regimen.) Pt/husb asked for handicapped placard. Explained that the diagnoses I treat do not qualify her for this. Assessment & Plan (02/29/2024 11:52 AM EDT): Incr TPM to 200/400. Instr pt to call earlier if headaches become frequent, let alone daily, for possible pred taper. Assessment & Plan (12/14/2023 3:20 PM EST): Double-check with pt's pharmacy that she is filling & taking *200* bid. (She thinks she is on 50.) Incr ere to 140. Check on pt assistance. Assessment & Plan (08/12/2023 5:38 PM EDT): Incr TPM to 100 bid x 1 w, then 100/200, then 200 bid. Submit for ere 70. #[id number] given Family history of cerebral zwrtqoak54/02/2023 Assessment & Plan (05/29/2025 11:41 AM EDT): Plan CTA head 2028. Assessment & Plan (01/16/2025 11:05 AM EDT): Plan CTA head 2028. Assessment & Plan (11/07/2024 11:23 AM EST): Plan CTA head 2028. Assessment & Plan (10/10/2024 12:59 PM EST): Plan CTA head 2028. Assessment & Plan (06/06/2024 12:52 PM EDT): Plan CTA head 2028. Assessment & Plan (02/29/2024 11:56 AM EDT): Plan CTA head 2028. Assessment & Plan (12/14/2023 3:27 PM EST): CTA brain ([facility]). Assessment & Plan (08/12/2023 5:41 PM EDT): CTA head - [facility]. Uehpqwx5302/03/2023 Assessment & Plan (01/09/2025 10:12 AM EDT): Current medication: effexor, also as elavil AARON 7=6 Assessment & Plan (07/17/2024 3:46 PM EDT): Currently taking Effexor 150mg; Does not attend therapy or counseling. Denies SI/HI; Feels symptoms are more prominent since she stopped drinking alcohol. Is agreeable to therapy at this time. Brain tumor (benign)3Carpal tunnel sihxeqgg38/26/2023Chronic pain 02/03/2023 Overview (05/15/2024): neck and back Coronary artery thckfsc5902/03/2023ERD (gastroesophageal reflux disease) 02/03/2023 Assessment & Plan (01/09/2025 10:39 AM EDT): Recommendations: freq small meals, nothing to eat or drink at least 2 hours prior to bed, limit caffeine, alcohol, as well as spicy foods Meds to limit or avoid if possible: NSAIDS Elevate HOB if possible Current med: omeprazole No sure if sxs are truly GERD or more PND, will treat with nasal steroids and allergy meds fu in 4 weeks If not better will send back to GI Arazqpiemjtq69/26/2023 Assessment & Plan (01/09/2025 6:23 AM EDT): Was on diltiazem in the past, this was discontinued, currently not taking anything for blood pressure Assessment & Plan (10/25/2024 9:16 AM EST): Currently taking verapamil 120mg Checks BP at home; Averages are in the low 1teens to 100's.; BP is too tightly controlled. Will discontinue Verapamil today. Denies orthostatic changes, dizziness, cough, shortness of breath, swelling in extremities. Given BP log, advised pt to record BP and bring log back with them to next visit. Assessment & Plan (08/16/2024 5:11 PM EST): Currently taking verapamil 120mg Checks BP at home; Averages are 130's; Bp is good in office today. Denies orthostatic changes, dizziness, cough, shortness of breath, swelling in extremities. Continue current regimen. Given BP log, advised pt to record BP and bring log back with them to next visit. Assessment & Plan (07/17/2024 3:47 PM EDT): Currently taking verapamil 120mg Checks BP at home; Averages are 140's; Bp is good in office today. Denies orthostatic changes, dizziness, cough, shortness of breath, swelling in extremities. Continue current regimen. Given BP log, advised pt to record BP and bring log back with them to next visit. Nasal erejgwdgzwof28/28/2022RLS (restless legs syndrome)07/01/2021 Assessment & Plan (05/29/2025 11:41 AM EDT): (Per FMD.) Assessment & Plan (01/16/2025 11:05 AM EDT): (Continue current regimen.) Orders: rOPINIRole (Requip) 4 MG tablet; Take 1 tablet (4 mg) by mouth 1 (one) time each day at the same time Assessment & Plan (11/07/2024 11:23 AM EST): (Continue current regimen.) Assessment & Plan (10/10/2024 12:59 PM EST): Consider SL B12. - PCP managing Assessment & Plan (06/06/2024 12:55 PM EDT): PLMD panel. Chronic migraine with aura04/30/2021OSA (obstructive sleep apnea)04/30/2021 Assessment & Plan (05/29/2025 11:41 AM EDT): Discussed further surgery (improvement likely to be mild), Inspire (not a candidate), oral appliance (least effective single way to tx RICHA). Positioning tx not likely to be helpful given study results. Plan redo home PSG in 2025, consider restarting PAP with tx of claustrophobia. Assessment & Plan (01/16/2025 11:05 AM EDT): Download in one month and before appt She will ask about a latex free mask and fit Change humidification to heated humidification Try to apply flonase to mask or face to dec sensitivity Assessment & Plan (01/09/2025 10:23 AM EDT): You have a diagnosis of obstructive sleep apnea. It is recommended that you wear your PAP device any time while in bed sleeping. Not using the PAP device can increase your risk of elevated/uncontrolled high blood pressure, atrial fibrillation, heart attack, stroke, or sudden . Compliance with PAP: yes How many hours of use per night: 4-6 hours, just starting Do you feel more refreshed in the morning: is helping, has been working on different mask, more recent full face mask Company that supplies your machine and tubing/filters etc: resp med, ??[facility] Doctor that manages your RICHA: Dr Figueroa Assessment & Plan (11/07/2024 11:23 AM EST): Pt needs new humidifier reservoir. Possibly needs new machine, current one is ~10 y old. 2020 note suggests DME is Merged With [facility]. *REMINDER* - check that parts or machine was received, download 6 w afterward. Download before appt too. Assessment & Plan (10/10/2024 12:59 PM EST): (Continue current regimen.) Download now, then before appt. Get old sleep studies - [place] somewhere. Try a humidifier in [place] Assessment & Plan (07/17/2024 3:47 PM EDT): Wears CPAP religiously. Follows with Neurology for CPAP management. Feels symptoms are well controlled at this time. Assessment & Plan (06/06/2024 12:57 PM EDT): Restart CPAP. Will need new supplies. Download in 1 mo, then before appt. Get old sleep studies - [place] somewhere. Neurologic qflxdigtjuu10/19/2019Unspecified /19/2019 Assessment & Plan (01/09/2025 6:21 AM EDT): Followed with Neurology Cervical spondylosis without xeppggjsal10/28/2017 Assessment & Plan (01/16/2025 11:12 AM EDT): Cont with pain mgt Continue HEP/Stretches. She states PT not affordable Consider EMG BUE Altered mental uxzyno3603/18/2016Cervico-occipital neuralgia of the right side 05/14/2012lcohol abuse08/14/2010 Assessment & Plan (07/17/2024 3:49 PM EDT): States she quit drinking alcohol 2 months ago 'cold turkey.' Feels anxiety/depression has worsened slightly since. Referral sent to . Major depressive disorder, recurrent episode, iyhnxafe72/04/2010 Assessment & Plan (01/09/2025 10:12 AM EDT): Current meds: elavil, and effexor XR PHQ 9=3 Assessment & Plan (10/25/2024 9:15 AM EST): Stopped taking Effexor 150mg abruptly. States she didn't believe she needed it any longer Has been following with [facility] for [facility]/counseling. Denies SI/HI; Would like to go back on Effexor today. Will restart at 75mg. Re-evaluate in 6 weeks. Assessment & Plan (07/17/2024 3:50 PM EDT): Currently taking Effexor 150mg; Does not attend therapy or counseling. Denies SI/HI; Feels symptoms are more prominent since she stopped drinking alcohol. Is agreeable to therapy at this time. Referral sent to . Kwqthqsbnvvbgp19/04/2010 Assessment & Plan (05/07/2025 6:23 AM EDT): Currently taking levothyroxine Check labs yearly, prn dose changes and changes in sxs Assessment & Plan (01/09/2025 6:24 AM EDT): Currently taking levothyroxine Check labs yearly, prn dose changes and changes in sxs Wcsvqgc3807/14/2010 Resolved Problems ProblemNoted DateDiagnosed DateResolved DateNasal eocuqgtrfjiw11/01/2025 05/07/2025High uiuvcimngud71/26/202304/10/2024 Assessment & Plan (08/16/2024 5:12 PM EST): Currently taking atorvastatin 20mg Denies any myalgias. Check Lipid Panel today. Continue current regimen. Assessment & Plan (07/17/2024 3:47 PM EDT): Currently taking atorvastatin 20mg Denies any myalgias. Check Lipid Panel today. Continue current regimen. Khnfcegzqz97 Assessment & Plan (01/09/2025 6:26 AM EDT): Current meds: elavil, and effexor PHQ 9= Severe recurrent major depression without psychotic kxyarsaq22/08/ Tzntvy31 Assessment & Plan (05/07/2025 6:23 AM EDT): Current med: albuterol prn Flares with bad colds, and season changes, Minimal use Assessment & Plan (01/09/2025 10:14 AM EDT): Current med: albuterol prn Flares with bad colds, and season changes, Minimal use Wqkviamcnnvp60/04/201004/10/2024 Assessment & Plan (10/25/2024 9:16 AM EST): Currently taking atorvastatin 20mg Denies any myalgias. Check Lipid Panel today. Continue current regimen. Encounters DateTypeDepartmentCare YlxfQbkqrguxuuv96/01/2025Refill [facility] [address] [place] [address] Chauncey Figueroa MD Migraine with aura, intractable, with status opndfhpripc72/17/2025Refill [facility] [address] [facility] [address] [place] [phone] Chauncey Figueroa MD Migraine with aura, intractable, with status smbhfvlibjz64/30/2025Refill [facility] [address] [facility] [address] [place] [phone] Erna Squires MA Insomnia, aoejaeooapqikuqygls51/16/2025 1:30 PM EDTClinical Support [facility] [address] [facility] [address] [place] [phone] Chauncey Figueroa MD Trigger point (Primary Dx)06/26/2025amb flowsheet [facility] [address] [place] [phone] Chauncey Figueroa MD 06/26/20252007Cclwlf59/04/2025Refill [facility] [address] [facility] [address] [place] [phone] Chauncey Figueroa MD Degenerative disc disease, xepncktn97/26/2025 9:10 AM EDTAncillary Procedure [facility] [phone] 06/05/2025 9:00 AM EDTOffice Visit [facility] [address] [place] [phone] Gregory Galeano PA Acute pain of left shoulder (Primary Dx); Arthritis of left ftepdwjf47/26/2025Refill [facility] [address] [facility] [address] [phone] Chauncey Figueroa MD Insomnia, psychophysiological; Migraine with aura, intractable, with status bohifzjynly22/26/2025amb flowsheet [facility] [address] [place], [place] [address] [phone] Gregory Galeano PA 06/05/20253078Kdozyg67/19/2025 10:45 AM EDTOffice Visit [facility] [address] [facility] [address] [facility] [address] [place] [phone] Chauncey Figueroa MD Trigger point of neck (Primary Dx); RICHA (obstructive sleep apnea); Migraine with aura, intractable, with status migrainosus ; Family history of cerebral aneurysm; Insomnia, psychophysiological; Cervical paraspinal muscle spasm; RLS (restless legs syndrome); Intractable migraine with status migrainosus, unspecified migraine type 05/29/2025[facility]phone [facility] [address] [place] [address] Chauncey Figueroa MD 05/29/2025amb flowsheet [facility] [address] [place] [phone] Chauncey Figueroa MD 05/29/20256564Vacnoj03/12/2025 9:15 AM EDTOffice Visit [facility] [address] [place] [address] Gregory Galeano PA Acute pain of right shoulder (Primary Dx); Arthritis of right nhgkajts34/12/2025amb flowsheet [facility] [address] [facility] [place] [address] Gregory Galeano PA 05/22/2025Travelfrom Last 3 Months Immunizations ImmunizationAdministration DatesNext DueInfluenza, injectable, MDCK, preservative free, vogqboeauhby20/19/2023Influenza, injectable, quadrivalent, preservative free09/17/2022,08/26/2021Influenza, recombinant, quadrivalent, injectable, preservative free08/16/2018Pneumococcal Polysaccharide PPSV23 03/22/2013Tdap02/10/2023 Family History RelationNameStatusCommentsBrotherAliveFatherDeceasedMaternal GrandfatherDeceased Maternal GrandmotherDeceasedMotherDeceasedPaternal GrandfatherDeceasedPaternal GrandmotherDeceased Social History Tobacco UseTypesPacks/DayYears UsedDateSmoking Tobacco: NeverSmokeless Tobacco: Never Tobacco Cessation:Counseling Given: Not Answered Alcohol UseStandard Drinks/WeekCommentsYes0 (1 standard drink = 0.6 oz pure alcohol)CommentsNoSex and Gender InformationValueDate RecordedSex Assigned at LbndiZmjfte48/20/2024 11:12 AM EDTLegal RggXtymro82/15/2023 7:07 PM EDTGender PvyyriirOykstb01/20/2024 11:12 AM EDTSexual OrientationNot on file Last Filed Vital Signs Vital SignReadingTime TakenCommentsBlood Hsikhkfa075/70005/07/2025 9:11 AM EDT Jjkgj5718/28/2025 9:11 AM DZJKcrsrhwxoca23.9 ??C (98.5 ??F)05/07/2025 9:11 AM EDTRespiratory Klmi326605/07/2025 9:11 AM EDTOxygen Vsrjuzuihb85%05/07/2025 9:11 AM EDTInhaled Oxygen Concentration--Eigqmm11.9 kg (154 lb)05/29/2025 11:11 AM DHBNtgpzk570.1 cm (5' 5 )05/29/2025 11:11 AM EDTBody Mass Index25.6308 11:11 AM EDT Plan of Treatment DateTypeDepartmentCare Team (Latest Contact Info)Ieauxlmuzlo62/18/2025 10:00 AM ESTOffice Visit [facility] [address] [facility] [address] [place] [address] Chauncey Figueroa MD [address] [facility] [address] [place], [place] [phone] 09/25/2025 9:00 AM ESTOffice Visit [facility] [address] [place] [address] Gregory Galeano PA [address] [place] [address] Health MaintenanceDue DateLast DoneCommentsCT Jnvovcwqrmra59/11/1964FIT-DNA 1963FIT1963 5408Xcnkcyezscpaj42/11/1964Pap Smear1984HPV/Cotest 1993COVID-19 Vaccine ( season)/, 08/31/2023, 09/21/2021, Additional history existsInfluenza Vaccine (#1)/, 09/17/2022, 08/26/2021, Additional history tuzuiyFnbjnzulz63, 07/26/2024, 02/24/2023, Additional history ualfhhLWVK42 Mryciexnuvr27/08//olorectal Cancer Ldsemkend62/08/2034Pneumococcal Vaccine: Pediatrics (0 to 5 Years) and At-Risk Patients (6 to 64 Years)Aged Out 03/22/2013No longer eligible based on patient's age to complete this topic Cervical Cancer ScreeningDiscontinued Procedures Procedure NamePriorityDate/TimeAssociated DiagnosisCommentsPR ARTHROCENTESIS ASPIR&/INJ MAJOR JT/BURSA W/JVXyfnugt43/26/2025 9:25 AM EDT Arthritis of left shoulder XR SHOULDER 2+ VIEWS MTAUKgavorw88/26/2025 9:07 AM EDT Acute pain of left shoulder NE ARTHROCENTESIS ASPIR&/INJ MAJOR JT/BURSA W/QSShdbbat97/12/2025 9:11 AM EDT Acute pain of right shoulder Arthritis of right shoulder OCCULT BLOOD X 1, JJAUMRbamoso62/23/2024 8:29 AM EST Anemia, unspecified type BI MAMMOGRAM SCREENING TOMOSYNTHESIS KJNRDGZYV87/16/2024 1:05 PM EDT from Last 3 Months or Most Recently Relevant to Health Maintenance Results * NE ARTHROCENTESIS ASPIR&/INJ MAJOR JT/BURSA W/US (06/05/2025 9:25 AM EDT) Narrative Gregory Galeano PA - 06/05/2025 9:25 AM EDT NELSON Bonilla 06/05/2025 9:35 AM L Inj/Asp: L glenohumeral on 06/05/2025 9:25 AM Indications: pain Details: 22 G needle, ultrasound-guided posterior approach Medications: 2 mL bupivacaine PF 0.5 %; 40 mg methylPREDNISolone acetate 40 MG/ML Outcome: tolerated well, no immediate complications The shoulder was prepped ??with isopropyl alcohol. Allowed time to fully dry. Under ??ultrasound guidance the glenohumeral joint ??was identified. A plain was established to avoid any neurovascular structures or lung, a 21 G needle was placed into the joint under ultrasound guidance and image captured to patients chart demonstrating proper placement in glenohumeral joint. I then injected 40 mg depomedrol and 2 ml of 0.5% bupivacaine ??Pt tolerated this well and neurovascular intact s/p injection. . ( Codes 51671) Procedure, treatment alternatives, risks and benefits explained, specific risks discussed. Consent was given by the patient. Patient was prepped and draped in the usual sterile fashion. Authorizing ProviderResult TypeResult StatusGregory Galeano PAIN CLINIC/BEDSIDE ORDERABLESFinal Result * XR shoulder 2+ views left (06/05/2025 9:07 AM EDT)Anatomical RegionLaterality ModalityUpper Extremities, ShoulderLeftRadiographic ImagingSpecimen (Source) Anatomical Location / LateralityCollection Method / VolumeCollection Time Received Time Narrative 06/05/2025 9:18 AM EDT Imaging Result: Left Shoulder AP and Scap Y No acute fracture or dislocation Bone Structures clavicle and scapula and humeral head appear normal alignment Glenohumeral joint space ??narrowed with subchondral sclerosis and spurring to humeral head. Suspect calcific tendonitis cuff insertion Moderate degenerative changes of ac joint Soft tissues and limited visualized lung cisneros unremarkable Impression: left shoulder arthritis with calcific tendonitis. Authorizing ProviderResult TypeResult StatusMacris Galeano PAIMG XR PROCEDURES Final Result * NE ARTHROCENTESIS ASPIR&/INJ MAJOR JT/BURSA W/US (05/22/2025 9:11 AM EDT) Narrative Gregory Galeano PA - 05/22/2025 9:11 AM EDT NELSON Bonilla 05/22/2025 9:22 AM L Inj/Asp: R glenohumeral on 05/22/2025 9:11 AM Indications: pain and diagnostic evaluation Details: 21 G needle, ultrasound-guided posterior approach Medications: 2 mL bupivacaine PF 0.5 %; 40 mg methylPREDNISolone Acetate 20 MG/ML The shoulder was prepped ??with isopropyl alcohol. Allowed time to fully dry. Under ??ultrasound guidance the glenohumeral joint ??was identified. A plain was established to avoid any neurovascular structures or lung, a 21 G needle was placed into the joint under ultrasound guidance and image captured to patients chart demonstrating proper placement in glenohumeral joint. I then injected 40 mg depomedrol and 2 ml of 0.5% bupivacaine ??Pt tolerated this well and neurovascular intact s/p injection. . ( Codes 90133-HB) Procedure, treatment alternatives, risks and benefits explained, specific risks discussed. Consent was given by the patient. Patient was prepped and draped in the usual sterile fashion. Authorizing ProviderResult TypeResult StatusMatthew Grace Galeano PAIN CLINIC/BEDSIDE ORDERABLESFinal Result * Occult blood x 1, stool (09/02/2024 8:29 AM EST)ComponentValueRef RangeTest MethodAnalysis TimePerformed AtPathologist SignatureFECAL GLOBIN RESULT:SEE NOTEQUESTComment: ??FECAL GLOBIN BY IMMUNOCHEMISTRY ?Micro Number: ?[id number] ??Test Status: ? Final ??Specimen Source: ?? Insure (tm) fobt test card ??Specimen Quality: ??Adequate ??Fecal Globin: ?Not Detected Test results may be invalid as no date of ? collection was provided. Specimens are stable for ? 30 days. NO COLLECTION DATE RECEIVED. WE HAVE USED THE DATE THE SPECIMEN WAS RECEIVED BY THIS LABORATORY THE COLLECTION DATE. IF THIS IS INCORRECT, PLEASE CONTACT CLIENT SERVICES. PHONE NUMBER: [phone] Specimen (Source)Anatomical Location / LateralityCollection Method / Volume Collection TimeReceived TimeStoolRectal contents / Lfqrfgo2809/01/2024 2:21 PM EST Narrative Resulting Agency Comment Performing Organization Information ?Site ID: [id number] ?Name: [email or web address] [facility] ?Address: [address] [place], [place] [address] , [address] [place] [id number] ?Director: Jeferson Clark MD Authorizing ProviderResult TypeResult StatusBritttracey Sanchez NPLAB BODY FLUIDS AND STOOLS ORDERABLESFinal ResultPerforming OrganizationAddress City/State/ZIP CodePhone Number [facility] * Bilateral screening mammogram with tomosynthesis (07/26/2024 1:05 PM EDT) Anatomical RegionLateralityModalityBreastBilateralMammographySpecimen (Source) Anatomical Location / LateralityCollection Method / VolumeCollection Time Received Time07/26/2024 1:05 PM EDT Narrative 07/26/2024 1:04 PM EDT [facility]1965 [id number] EXAM: MAMM SCREENING BILATERAL W CAD, 07/26/2024 9:50 AM CLINICAL INDICATIONS: Screening, Encounter for screening mammogram for malignant neoplasm of breast COMPARISON: Previous studies dating back to 2017 TECHNIQUE: Bilateral digital tomosynthesis MLO and CC views of the breasts were obtained, with creation of synthetic 2D views. Computer aided detection was utilized. FINDINGS: There are scattered areas of fibroglandular density. Stable tissue alteration from previous reduction mammoplasty. There are no suspicious masses, calcifications, or areas of architectural distortion. IMPRESSION: No mammographic evidence of malignancy. BI-RADS: BI-RADS 1 - Negative Recommendation: ??Routine screening mammogram in 1 year. Finalized by Corbin Petersen DO on 07/26/2024 1:04 PM 1 b MAMM 1 YR FDA Accredited Performing Facility: [facility] [address] [facility] [address] Procedure Note Radiology, Radiologist, - 07/26/2024 [facility] 1965 [id number] EXAM: MAMM SCREENING BILATERAL W CAD, 07/26/2024 9:50 AM CLINICAL INDICATIONS: Screening, Encounter for screening mammogram formalignant neoplasm of breast COMPARISON: Previous studies dating back to 2017 TECHNIQUE: Bilateral digital tomosynthesis MLO and CC views of the breasts wereobtained, with creation of synthetic 2D views. Computer aided detectionwas utilized. FINDINGS: There are scattered areas of fibroglandular density. Stable tissue alteration from previous reduction mammoplasty. There are no suspicious masses, calcifications, or areas of architectural distortion. IMPRESSION: No mammographic evidence of malignancy. BI-RADS: BI-RADS 1 - Negative Recommendation: Routine screening mammogram in 1 year. Finalized by Corbin Petersen DO on 07/26/2024 1:04 PM 1 b MAMM 1 YR FDA Accredited Performing Facility: [facility] [address] [address] Authorizing ProviderResult TypeResult StatusBrittany Sanchez NPIMG BI PROCEDURESFinal Result from Last 3 Months or Most Recently Relevant to Health Maintenance Insurance Care Teams Team MemberRelationshipSpecialtyStart DateEnd Date Dagoberto Concepcion MD [address] [place] [address] Physician Assistant06/29/24 Melissa Burkett MD [address] [place] [address] Referring PhysicianFamily Medicine12/14/23 Jacque Daniel NP [address] [place] [address] Nurse PractitionerFamily Medicine06/05/25
--- OUTSIDE RECORDS SUMMARY | 2025-08-15 10:35 | XMS_ITS | Encounter Summary ---
Author Organization [facility] Address [address] [place] [address] Care Team Providers Care [employer] Se[employer] Operator Name Role Phone Dagoberto Concepcion MD Unavailable Melissa Burkett MD Unavailable Jacque Daniel NP Unavailable [phone] Reason for Visit * ReasonCommentsMed Refill Encounter Details DateTypeDepartmentCare Team (Latest Contact Info)Xegejijyjce35/01/2025Refill [facility] Neurology [address] [facility] [address] [place] [phone] Chauncey Figueroa MD [address] [facility] [address] [place], [place] [id number] Migraine with aura, intractable, with status migrainosus Social History Tobacco UseTypesPacks/DayYears UsedDateSmoking Tobacco: NeverSmokeless Tobacco: NeverAlcohol UseStandard Drinks/WeekCommentsYes0 (1 standard drink = 0.6 oz pure alcohol)CommentsNoSex and Gender InformationValueDate RecordedSex Assigned at QlujtBatplv30/20/2024 11:12 AM EDTLegal DmfVvpanp38/15/2023 7:07 PM EDTGender EofyrnfxWmacqy81/20/2024 11:12 AM EDTSexual OrientationNot on file documented as of this encounter Plan of Treatment DateTypeDepartmentCare Team (Latest Contact Info)Myycbumqawu23/18/2025 10:00 AM ESTOffice Visit [facility] [address] [facility] [address] [place] [address] Chauncey Figueroa MD [address] [facility] [address] [place] [address] 09/25/2025 9:00 AM ESTOffice Visit [facility] [address] [place] [address] Gregory Galeano PA [address] [place] [address] documented as of this encounter Visit Diagnoses Diagnosis Migraine with aura, intractable, with status migrainosus documented in this encounter Care Teams Team MemberRelationshipSpecialtyStart DateEnd Date Dagoberto Concepcion MD [address] [place] [id number] Physician Assistant06/29/24 Melissa Burkett MD [address] [facility] [place] [address] Referring PhysicianFamily Medicine12/14/23 Jacque Daniel NP [address] [place] [address] Nurse PractitionerFamily Medicine06/05/25documented as of this encounter
--- OUTSIDE RECORDS SUMMARY | 2025-08-15 10:35 | XMS_ITS | Clinical Summary ---
Author Organization [employer] [facility] tem Address [id number] [address] [place] [address] Care Team Providers Care Candy Supervisor Name Role Phone Jacque Daniel APRN-FURNITURE RESTORER Primary Care Provider Allergies Active AllergyReactionsCriticalityNoted PistLswntoulJupcqsgFurtExy86 KetorolacHives,Pecklsrokzkyra17Promethazine UhcYgppd05/06/2017Sulfa (Sulfonamide Antibiotics)Hives,MmfkKfr9707/14/2010Sulfamethoxazole-Trimethoprim IlnuRxc4704/15/20179265BeeyaabusxNzkdx23/04/2010 Medications * This document contains information received from the source organization and may not represent a complete record from that organization. MedicationSigDispense QuantityRefillsLast FilledStart DateEnd DateStatus levothyroxine (SYNTHROID, LEVOTHROID) 112 MCG tablet Indications:hypothyroidismTake 1 tablet (112 mcg total) by mouth in the morning. Indications: a condition with low thyroid hormone levels.Active MULTIVIT-MIN/IRON/FOLIC/LUTEIN (CENTRUM SILVER WOMEN ORAL) Take 1 tablet by mouth in the morning.Active fluticasone-salmeterol (ADVAIR) 250-50 mcg/dose DISKUS Inhale 1 puff as needed in the morning and 1 puff as needed in the evening. Active cyclobenzaprine (FLEXERIL) 10 mg tablet Take 1 tablet (10 mg total) by mouth in the morning and 1 tablet (10 mg total) before bedtime.Active amitriptyline (ELAVIL) 100 mg tablet Take 1 tablet (100 mg total) by mouth nightly.Active atorvastatin (LIPITOR) 20 mg tablet Take 1 tablet (20 mg total) by mouth in the morning.Active venlafaxine 150 MG tablet extended release 24hr 24 hr tablet Take 1 tablet (150 mg total) by mouth in the morning.Active SUMAtriptan (IMITREX) 50 mg tablet Indications:Chronic migraine with auraTake 1 tablet (50 mg total) by mouth once as needed for migraine. May repeat in 2 hours if unresolved. Do not exceed 200 mg in 24 hours. 9 tablet ctive topiramate (TOPAMAX) 50 mg tablet Indications:Restless leg syndrome,Chronic migraine with auraTake 1 tablet (50 mg total) by mouth 2 (two) times a day. 60 tablet ctive meloxicam (MOBIC) 15 mg tablet Take 1 tablet (15 mg total) by mouth in the morning.01/22/2023ctive rOPINIRole (REQUIP) 4 mg tablet Take 1 tablet (4 mg total) by mouth nightly.01/22/2023ctive glucosamine HCl/chondroitin horn (GLUCOSAMINE-CHONDROITIN ORAL) Take 1 tablet by mouth in the morning and 1 tablet before bedtime. 1500 Xs 2. Active coenzyme Q10 30 mg capsule Take 1 capsule (30 mg total) by mouth in the morning and 1 capsule (30 mg total) at noon and 1 capsule (30 mg total) before bedtime.Active AIMOVIG AUTOINJECTOR 140 mg/mL auto-injector 150 mg.05/11/2024ctive NON FORMULARY Med Name: potassium 99 mg, osteo-bi flex, brain performance support daily,Active potassium gluconate 600 mg (99 mg) tablet Take 1 tablet by mouth in the morning.Active topiramate (TOPAMAX) 200 MG tablet Take 1 tablet (200 mg total) by mouth in the morning.Active topiramate (TOPAMAX) 200 MG tablet Take 2 tablets (400 mg total) by mouth nightly.Active albuterol (PROVENTIL HFA;VENTOLIN HFA) 90 mcg/actuation inhaler Inhale 2 puffs every 4 (four) hours as needed for wheezing.Active fluticasone propionate (FLONASE) 50 mcg/actuation nasal spray Administer 1 spray into each nostril in the morning.Active celecoxib (CeleBREX) 100 mg capsule TAKE 1 CAPSULE (100 MG) BY MOUTH IN THE MORNING AND BEFORE BEDTIMEActive ondansetron ODT (ZOFRAN ODT) 4 mg disintegrating tablet Dissolve 1 tablet (4 mg total) on tongue every 8 (eight) hours as needed for nausea for up to 10 doses. 10 tablet 5Active loperamide (IMODIUM) 2 mg capsule Take 1 capsule (2 mg total) by mouth 4 (four) times a day as needed for diarrhea. 12 capsule 5Active omeprazole (PriLOSEC) 40 mg capsule Take 1 capsule (40 mg total) by mouth in the morning for 14 days. 14 capsule 5Active omeprazole (PriLOSEC) 40 mg capsule Take 1 capsule (40 mg total) by mouth in the morning. Discontinued Active Problems ProblemNoted DateDiagnosed DateIntervertebral disc stenosis of neural canal of cervical xcwlzs2501/02/20259174Suxqmmo22/26/8574Hskzzw04/26/2023rain tumor (benign) 02/03/2023arpal tunnel pjcrujow23/26/2023hronic pain02/03/2023 Overview (02/03/2023): neck and back Coronary artery emykpvn6402/03/2023ERD (gastroesophageal reflux disease) 02/03/2023High tlaktwaqbpe96/26/3541Tfzrboibjbos65/26/2023Hypothyroidism 02/03/2023Nasal desmryeetqrv71/28/2022Restless leg wzwvtguq59/21/2021hronic migraine with aura04/30/20212759Rhvlejwhxy94/21/2021OSA (obstructive sleep apnea) 04/30/2021New onset nmcrsrr4906/29/2019Neurologic hhshuvfwsgz09/19/2019Cervical spondylosis without wsgosdouql21/28/2017Severe recurrent major depression without psychotic qxtqroft34/08/2016Altered mental ihpykb0203/18/2016 Encounters DateTypeDepartmentCare DibwDbkayuvgaot58/26/2025 1:18 AM EDT - 08/05/2025 3:38 [facility] [address] [id number] Jatin Perez MD Nausea vomiting and diarrhea (Primary Dx); Hypokalemia; Acute cystitis without hematuria Discharge Disposition: Home08/05/20258321Vwcnjw64/09/2025 11:41 AM EDT - 06/19/2025 12:50 PM EDTEmer[facility] [address] [place] [address] Closed head injury, initial encounter (Primary Dx); Concussion without loss of consciousness, initial encounter; Contusion of scalp, initial encounter Discharge Disposition: Home06/19/2025Travelfrom Last 3 Months Immunizations ImmunizationAdministration DatesNext DueInfluenza, Injectable, quadrivalent (PF) 08/26/2021Influenza, Recombinant, Quadrivalent, Injectable, Qecppjx2208/16/2018 Tdap02/10/2023 Family History Medical HistoryRelationNameCommentsProstate cancerFatherOvarian cancerMaternal Aunt 1Ovarian cancerMaternal Aunt 2Ovarian cancerMaternal Aunt 3Ovarian cancer Maternal Aunt 4AneurysmMotherCerebral aneurysmMotherRestless legs syndromeMother RelationNameStatusCommentsFatherDeceasedMaternal Aunt 1Maternal Aunt 2Maternal Aunt 3Maternal Aunt 4MotherDeceased Social History Tobacco UseTypesPacks/DayYears UsedDateSmoking Tobacco: NeverSmokeless Tobacco: Never Tobacco Cessation:Counseling Given: Not Answered Alcohol UseStandard Drinks/WeekCommentsNot Currently0 (1 standard drink = 0.6 oz pure alcohol)PHQ-2AnswerDate RecordedTotal Pgycw561/21/2021ChildcareAnswerDate IapmefpuZqdjupuzpRefdgje11/12/2019EmploymentAnswerDate RecordedEmploymentUnknown 03/22/2019Hunger ScreeningAnswerDate RecordedWithin the past 12 months we worried whether our food would run out before we got money to buy more.Never True08/05/2025Within the past 12 months the food we bought just didn't last and we didn't have money to get more.Never True08/05/2025Purpose - LifeAnswerDate RecordedPurpose and direction in qefwAcvqhsz25/02/2021CommentsNoSex and Gender InformationValueDate RecordedSex Assigned at PkkocZucmfl20/11/2024 2:41 PM EDTLegal KeqXvmkma90/06/2015 11:22 AM EDTGender IdentityNot on fileSexual OrientationNot on file Last Filed Vital Signs Vital SignReadingTime TakenCommentsBlood Rbqngtco483/8408/05/2025 3:33 AM EDT Bwhek068308/05/2025 3:33 AM WSGLktztiyjeck44.9 ??C (98.4 ??F)08/05/2025 1:23 AM EDTRespiratory Xcyd5704 3:33 AM EDTOxygen Qnspzufhnz51%08/05/2025 3:33 AM EDTInhaled Oxygen Concentration--Njkunf06 kg (150 lb)08/05/2025 1:23 AM EDT Ouqhef090.1 cm (5' 5 )08/05/2025 1:23 AM EDTBody Mass Index24.9608/05/2025 1:23 AM EDT Plan of Treatment Health MaintenanceDue DateLast DoneCommentsDepression Ggwijgufk62/11/1976Zoster (Shingles) Vaccine (1 of 2)2013RSV ( or age 60+ yrs) (1 - Risk 60- 74 years 1-dose series)4COVID-19 Vaccine ( season)2025 10/08/2024, 08/31/2023, 09/17/2022, Additional history existsInfluenza Vaccine /, 09/17/2022, 08/26/2021, Additional history existsStatin Use: Rkfvkqjdvfcfky38dult BMI Huxdagygm13 Tobacco Bzqbrulfj24/26/103118/26/2025DTaP,Tdap and Td Vaccines (2 - Td or Tdap) /12/2022 Goals GoalPatient Goal TypeAssociated ProblemsRecent ProgressPatient-Stated?Author <enter goal here> Marisol Rose, RN Note: Evaluation of progress towards goal: snf Medical Devices ImplantedTypeAreaManufacturerDevice IdentifierShelf Expiration DateModel / Serial / LotCranialDescription:titanium plate Procedures Procedure NamePriorityDate/TimeAssociated DiagnosisCommentsC DIFFICILE BY PCR STAT1 3:24 AM EDT GI PANEL STOOL PATHOGEN QOLQFMKUC10/26/2025 3:24 AM EDT POCT NURSING URINE MACROSCOPIC AZCvskliu91/26/2025 3:21 AM EDT ER EXTRA VJDPNZFMG64/26/2025 3:18 AM EDT EXTRA TUBES BLUE QBODndokqg05/26/2025 1:36 AM EDT EXTRA FOJDYXayachm30/26/2025 1:36 AM EDT DCJSGQATPF74/26/2025 1:33 AM EDT LIVER KSZZPZFQE40/26/2025 1:33 AM EDT BASIC METABOLIC XZUCMMWMY71/26/2025 1:33 AM EDT CBC WITH AUTO MWRPCIHYBZFYSWOE53/26/2025 1:[address] BRAIN WO GTWPYUTY15/09/2025 12:11 PM EDT from Last 3 Months Results * GI Panel(stool pathogen panel) (08/05/2025 3:24 AM EDT)ComponentValueRef Range Test MethodAnalysis TimePerformed AtPathologist SignatureCAMPYLOBACTERNot DetectedNot Bjwthcyo95/26/2025 11:22 AM [facility] PLESIOMONASNot DetectedNot Lazzrbst83/26/2025 11:22 AM [facility] LABORATORYSALMONELLANot DetectedNot Cdozvyay37/26/2025 11:22 AM [facility] LABORATORYVIBRIONot DetectedNot Nkebqccj47/26/2025 11:22 AM [facility] LABORATORYVIBRIO CHOLERAENot DetectedNot Nlxhthih96/26/2025 11:22 AM [facility] LABORATORYY. ENTEROCOLITICANot DetectedNot Rpzihfmg79/26/2025 11:22 AM [facility] LABORATORYAGGREGATIVE E COLINot DetectedNot Pvumjdys39/26/2025 11:22 AM [facility] LABORATORYPATHOGENIC E COLINot DetectedNot Mplnvxdm09/26/2025 11:22 AM [facility] LABORATORYTOXIGENIC E COLINot DetectedNot Lfbhaweq05/26/2025 11:22 AM [facility]ORATORYSHIGA TOXIN E COLINot DetectedNot Sqfseuqk30/26/2025 11:22 AM [facility] LABORATORYSHIGELLA-E COLINot DetectedNot Detected 08/05/2025 11:22 AM [facility]ORYCRYPTOSPORIDIUMNot DetectedNot Vedaugwe60/26/2025 11:22 AM [facility] CYCLOSPORANot DetectedNot Zqugggqp98/26/2025 11:22 AM [facility]ORYE HISTOLYTICANot DetectedNot Kvbpplrr84/26/2025 11:22 AM [facility] LABORATORYGIARDIA LAMBLIANot DetectedNot Detected 08/05/2025 11:22 AM [facility]ORATORYADENOVIRUSNot DetectedNot Gmkywbns92/26/2025 11:22 AM [facility] ASTROVIRUSNot DetectedNot Ryykboci46/26/2025 11:22 AM [facility]OR[facility]ORYNOROVIRUSNot DetectedNot Quvikkfb29/26/2025 11:22 AM [facility] LABORATORYROTAVIRUS ANot DetectedNot Detected 08/05/2025 11:22 AM [facility] LABORATORYSAPOVIRUSNot DetectedNot Uoulpdgq84/26/2025 11:22 AM [facility] Specimen (Source)Anatomical Location / LateralityCollection Method / Volume Collection TimeReceived TimeStoolFeces / Iqlqzkf4908/05/2025 3:24 AM EDT 08/05/2025 3:29 AM EDT Narrative Authorizing ProviderResult TypeResult StatusJatin JOY FLUIDS AND STOOLS ORDERABLESFinal ResultPerforming OrganizationAddressCity/State/ZIP Code Phone Number [facility] [address] [place] [address], * C difficile by PCR (08/05/2025 3:24 AM EDT)ComponentValueRef RangeTest Method Analysis TimePerformed AtPathologist SignatureTOXIGENIC C DIFFNegativeNegative 08/05/2025 10:52 AM [facility] FZETMYJFNC706 SJK3Viapfzcyhaa NegativePresumptive Kmwpxphc46/26/2025 10:52 AM [facility] LABORATORYComment:Assay methodology is nucleic acid amplification by real-time PCR for detection of C. difficile toxin gene sequences performed on [employer].Specimen (Source)Anatomical Location / Laterality Collection Method / VolumeCollection TimeReceived TimeStoolFeces / Unknown 08/05/2025 3:24 AM EDT1 3:29 AM EDT Narrative Authorizing ProviderResult TypeResult StatusJatin JOY FLUIDS AND STOOLS ORDERABLESFinal ResultPerforming OrganizationAddressCity/State/ZIP Code Phone Number [facility] [address] [place] [address], * (ABNORMAL) POCT Nursing Urine Macroscopic UA (08/05/2025 3:21 AM EDT)Component ValueRef RangeTest MethodAnalysis TimePerformed AtPathologist SignaturePO Urine Specific [place]>=1.030(A)1.010, 1.015, 1.020, 1.6953108/05/2025 3:21 AM [facility] Urine Leukocyte EsteraseTrace(A) Lvxbjnkl24/26/2025 3:21 AM [facility]OCK[facility] Urine WvaocucVvtpjaoqEhhqsdlx72/26/2025 3:21 AM [facility] Urine pH6.05.0, 6.0, 6.5, 7.0, 7.5, 8.0, 8.5, 5. 3:21 AM [facility] Urine ProteinTrace(A)Negative 08/05/2025 3:21 AM [facility] Urine Glucose JxorpocoVexridib84/26/2025 3:21 AM [facility] Urine LvwyqavDpmmpugfJempkcyy80/26/2025 3:21 AM [facility] Urine Urobilinogen0.2 E.U./dL08/05/2025 3:21 AM [facility] Urine VkmrvpcdwJwzzubwgMzzdnnfh56/26/2025 3:21 AM [facility] Urine Blood/HGBNegativeNegative 08/05/2025 3:21 AM [facility] (Source) Anatomical Location / LateralityCollection Method / VolumeCollection Time Received PqzoPnorj81/26/2025 3:21 AM EDT1 3:21 AM EDT Narrative Authorizing ProviderResult TypeResult StatusJatin Perez MDPOINT OF CARE TEST ORDERABLESFinal ResultPerforming OrganizationAddressCity/State/[facility] [place] [address], * Extra Urine (08/05/2025 3:18 AM EDT)ComponentValueRef RangeTest MethodAnalysis TimePerformed AtPathologist SignatureExtra TubeAuto Striaszq24/26/2025 5:01 AM [facility] (Source)Anatomical Location / LateralityCollection Method / VolumeCollection TimeReceived TimeUrineUrine specimen collection, clean catch / Zkodszb5908/05/2025 3:18 AM EDT1 3:22 AM EDT Narrative Authorizing ProviderResult TypeResult StatusJatin Perez MDURINE ORDERABLESFinal ResultPerforming OrganizationAddressCity/State/ZIP CodePhone Number [address] [place] [address], [place] * Light Blue Top (08/05/2025 1:36 AM EDT)ComponentValueRef RangeTest Method Analysis TimePerformed AtPathologist SignatureExtra TubeAuto Resulted 08/05/2025 3:01 AM [facility] (Source) Anatomical Location / LateralityCollection Method / VolumeCollection Time Received TimeBloodVenous blood / Hpkjsho7508/05/2025 1:36 AM EDT1 1:36 AM EDT Narrative Authorizing ProviderResult TypeResult StatusJatin Perez MDLAB BLOOD ORDERABLES Final ResultPerforming OrganizationAddressCity/State/ZIP CodePhone Number [address] [place] [address], [place] * (ABNORMAL) CBC auto differential (08/05/2025 1:33 AM EDT)ComponentValueRef RangeTest MethodAnalysis TimePerformed AtPathologist GwdbmmxryYZK16.64 - 11 x10E9/L1 1:42 AM [facility]ITALRBC Count4.17 3.8 - 5.2 X10E12/L1 1:42 AM [facility] Xqzdnmpjsc46.011.7 - 15.5 g/dL08/05/2025 1:42 AM [facility]ITALHematocrit38.735 - 47 %08/05/2025 1:42 AM EDPARMA [facility]ITY GENERAL HOSPITALMCV9380 - 100 fL08/05/2025 1:42 AM EDPARMA COMMUNITY GENERAL HOSPITALMCH31.327 - 34 pg08/05/2025 1:42 AM EDTPSALEM CITY HOSPITALMCHC33.732 - 36 g/dL08/05/2025 1:42 AM [facility]OSPITALRDW13.111.5 - 15 %08/05/2025 1:42 AM [facility]OSPITALPlatelet Bdchj282266 - 450 X10E9/L1 1:42 AM EDT [facility]ITALMPV7.17 - 12 fL08/05/2025 1:42 AM EDT [facility]ITALNeutrophils %74.6%08/05/2025 1:42 AM EDT [facility]PITALLymphocytes %14.0%08/05/2025 1:42 AM EDT [facility] HOSPITALMonocytes %7.2%08/05/2025 1:42 AM EDT [facility] HOSPITALEosinophils %4.0%08/05/2025 1:42 AM EDT [facility]ITALBasophils %0.2%08/05/2025 1:42 AM EDT [facility]PITALNeutrophils Absolute (A)7.9(H)1.5 - 6.6 10*3/uL08/05/2025 1:42 AM EDTPSALEM CITY HOSPITALLymphocytes Absolute1.51.0 - 3.5 10*3/uL08/05/2025 1:42 AM EDTPOH[facility] HOSPITALMonocytes Absolute0.80.0 - 0.9 10*3/uL08/05/2025 1:42 AM EDTPOHIO [facility]ING [facility] HOSPITALEosinophils Absolute0.40.0 - 0.4 10*3/uL08/05/2025 1:42 AM EDPARMA COMMUNITY GENERAL HOSPITALBasophils Absolute0.00.0 - 0.2 10*3/uL08/05/2025 1:42 AM EDPARMA COMMUNITY GENERAL HOSPITALDifferential TypeAUTOMATED SRPWOPRYYUMC32/26/2025 1:42 AM EDSELECT MEDICAL SPECIALTY [facility]PITAL - AKRONpecimen (Source)Anatomical Location / LateralityCollection Method / VolumeCollection TimeReceived TimeBloodVenous blood / UnknownVenipuncture / Hwfikwr6908/05/2025 1:33 AM EDT1 1:35 AM EDT Narrative Authorizing ProviderResult TypeResult StatusJatin Perez MDLAB BLOOD ORDERABLES Final ResultPerforming OrganizationAddressCity/State/ZIP CodePhone Number [address] [place] [address], [place] * Lipase (08/05/2025 1:33 AM EDT)ComponentValueRef RangeTest MethodAnalysis Time Performed AtPathologist CiqqapcfuXKHNDD9630 - 40 U/L1 1:52 AM EDT [facility]UMpecimen (Source)Anatomical Location / LateralityCollection Method / VolumeCollection TimeReceived TimeBloodVenous blood / UnknownVenipuncture / Kppuukb4408/05/2025 1:33 AM EDT1 1:35 AM EDT Narrative Authorizing ProviderResult TypeResult StatusJatin Perez MDLAB BLOOD ORDERABLES Final ResultPerforming OrganizationAddressCity/State/ZIP CodePhone Number [address] [place] [address], [place] * Liver panel (08/05/2025 1:33 AM EDT)ComponentValueRef RangeTest MethodAnalysis TimePerformed AtPathologist SignatureTOTAL PROTEIN7.76.0 - 8.0 g/dL08/05/2025 1:59 AM EDTPSALEM CITY HOSPITALALBUMIN4.53.2 - 5.3 g/dL 08/05/2025 1:59 AM EDTPSALEM CITY HOSPITALBILIRUBIN,TOTAL0.40.3 - 1.2 mg/dL08/05/2025 1:59 AM TPSALEM CITY HOSPITALALKALINE QPDIFOORANT6937 - 130 U/L1 1:59 AM EDTPSALEM CITY HOSPITALAST21<=41 U/L1 1:59 AM EDTPSALEM CITY HOSPITAL ALT17<=31 U/L1 1:59 AM [facility] BILIRUBIN,DIRECT0.1<=0.4 mg/dL08/05/2025 1:59 AM EDTPTRUMBULL MEMORIAL HOSPITALpecimen (Source)Anatomical Location / LateralityCollection Method / VolumeCollection TimeReceived TimeBloodVenous blood / UnknownVenipuncture / Sajcdez2708/05/2025 1:33 AM EDT1 1:35 AM EDT Narrative Authorizing ProviderResult TypeResult StatusJatin PEREZ BLOOD ORDERABLES Final ResultPerforming OrganizationAddressCity/State/ZIP CodePhone Number [facility] [address] [place] [address], * (ABNORMAL) Basic Metabolic Panel (08/05/2025 1:33 AM EDT)ComponentValueRef RangeTest MethodAnalysis TimePerformed AtPathologist RnhwjeengPAQPUL463458 - 146 mmol/L1 1:59 AM [facility] HOSPITALPOTASSIUM 3.0(L)3.5 - 5.0 mmol/L1 1:59 AM [facility] HOSPITALCHLORIDE114(H)98 - 109 mmol/L1 1:59 AM [facility] HOSPITALCARBON SUXURLE86(L)22 - 32 mmol/L1 1:59 AM EDT [facility]OSPITALANION GAP95 - 15 mmol/L1 1:59 AM [facility] HOSPITALBLOOD UREA SVMQLKUS777 - 27 mg/dL 08/05/2025 1:59 AM [facility] HOSPITALCREATININE0.820.40 - 1.00 mg/dL08/05/2025 1:59 AM [facility]OSPITALComment: METHOD TRACEABLE TO IDMS SXDJFMOBYVNUUUS015(H)65 - 99 mg/dL08/05/2025 1:59 AM [facility] HOSPITALCALCIUM9.18.5 - 10.5 mg/dL08/05/2025 1:59 AM [facility] HOSPITALEGFR Non-Race Nevfstxlq58>=60 ml/min/1.73sq.m1 1:59 AM [facility] Comment: eGFR not reported due to non-numeric value for Creatinine. Reported eGFR is based on the CKD-EPI 2020 equation that does not use a race coefficient. Specimen (Source)Anatomical Location / LateralityCollection Method / Volume Collection TimeReceived TimeBloodVenous blood / UnknownVenipuncture / Unknown 08/05/2025 1:33 AM EDT1 1:35 AM EDT Narrative Authorizing ProviderResult TypeResult StatusJatin PEREZ BLOOD ORDERABLES Final ResultPerforming OrganizationAddressCity/State/ZIP CodePhone Number [facility] [address] [place] [address], [place] * CT brain without contrast (06/19/2025 12:11 PM EDT)Anatomical RegionLaterality ModalityNeuro, Head, Head and Neck, Neuro CoveraN/AComputed TomographySpecimen (Source)Anatomical Location / LateralityCollection Method / VolumeCollection TimeReceived Time06/19/2025 12:12 PM EDT Narrative 06/19/2025 12:22 PM EDT Exam: CT brain without contrast. CLINICAL HISTORY: Headache. Trauma with headache. TECHNIQUE: ??CT brain without intravenous contrast. All CT scans at this facility use dose modulation, iterative reconstruction, and/or weight based dosing when appropriate to reduce radiation dose to as low as reasonably achievable COMPARISON: CT scan 06/28/2019. FINDINGS: Prior right frontoparietal craniotomy. No skull fracture. Paranasal sinuses and mastoid air cells are well aerated. No evidence of hemorrhage. No mass or mass effect. Brainstem and cerebellum are unremarkable. Ventricles and basal cisterns are well preserved. No midline shift. IMPRESSION: No acute intracranial pathology by CT. Finalized by Mor Correia MD on 06/19/2025 12:22 PM Procedure Note Mor Correia MD - 06/19/2025 Exam: CT brain without contrast. CLINICAL HISTORY: Headache. Trauma with headache. TECHNIQUE: CT brain without intravenous contrast. All CT scans at this facility use dose modulation, iterativereconstruction, and/or weight based dosing when appropriate to reduceradiation dose to as low as reasonably achievable COMPARISON: CT scan 06/28/2019. FINDINGS: Prior right frontoparietal craniotomy. No skull fracture. Paranasalsinuses and mastoid air cells are well aerated. No evidence of hemorrhage. No mass or mass effect. Brainstem and cerebellum are unremarkable. Ventricles and basal cisterns are well preserved. No midline shift. IMPRESSION: No acute intracranial pathology by CT. Finalized by Mor Correia MD on 06/19/2025 12:22 PM Authorizing ProviderResult TypeResult StatusSufelisa Ana M Duomnt IMG CT ORDERABLES Final Result from Last 3 Months Insurance Advance Directives * Full Code (Latest Code Status on File) Date ActivatedDate InactivatedComments06/29/2019 3:32 AM06/30/2019 8:36 PM * Full Code Date ActivatedDate InactivatedComments03/19/2016 2:20 AM03/20/2016 7:39 PM * Full Code Date ActivatedDate InactivatedComments03/18/2016 11:34 PM03/19/2016 1:50 AM Care Teams Team MemberRelationshipSpecialtyStart DateEnd Date Jacque Daniel, DUMP OPERATOR-FURNITURE RESTORER [address] [place] [address] PCP - GeneralNurse Practitioner06/19/25
--- OUTSIDE RECORDS SUMMARY | 2025-08-15 10:36 | XMS_ITS | Clinical Summary ---
Author Organization [facility] Address [address] [place] [address], [address] [place] [address] Care Team Providers Care Manager Production Name Role Phone TyreseFawad billings Primary Care Provider [phone] Allergies Active AllergyReactionsCriticalityNoted GccsWkmcokdbBcekuwq48/08/2016Sulfa Igcbsxpcvju07/08/0931Aqerdrcezq49/08/2016 Medications MedicationSigDispense QuantityRefillsLast FilledStart DateEnd DateStatus lisinopril (PRINIVIL;ZESTRIL) 20 MG tablet Take 20 mg by mouth 2 times dailyActive rOPINIRole (REQUIP XL) 2 MG XL tablet Take 4 mg by mouth nightlyActive gabapentin (NEURONTIN) 400 MG capsule Take 400 mg by mouth 4 times dailyActive amitriptyline (ELAVIL) 100 MG tablet Take 100 mg by mouth nightlyActive simvastatin (ZOCOR) 40 MG tablet Take 40 mg by mouth nightlyActive levothyroxine (SYNTHROID) 150 MCG tablet Take 150 mcg by mouth DailyActive fluticasone-salmeterol (ADVAIR) 250-50 MCG/DOSE AEPB Inhale 1 puff into the lungs every 12 hoursActive Social History Tobacco UseTypesPacks/DayYears UsedDateSmoking Tobacco: UnknownComments UnknownSex and Gender InformationValueDate RecordedSex Assigned at BirthNot on fileLegal BpbBgiapq60/08/2016 12:25 AM EDTGender IdentityNot on fileSexual OrientationNot on file Last Filed Vital Signs Vital SignReadingTime TakenCommentsBlood Neaxxayo966/7403/18/2016 1:20 PM EDT Mnvoy503003/18/2016 1:20 PM PVCThopuhlesir19.2 ??C (99 ??F)03/18/2016 1:20 PM EDT Respiratory Wtxf627103/18/2016 1:20 PM EDTOxygen Xswtisuqlc85%03/18/2016 1:20 PM EDTInhaled Oxygen Concentration--Otspgl081.3 kg (230 lb)03/18/2016 12:28 AM EDT Ymvptz204 cm (5' 3 )03/18/2016 12:28 AM EDTBody Mass Index40.7403/18/2016 12:28 AM EDT Plan of Treatment Not on file Care Teams Team MemberRelationshipSpecialtyStart DateEnd Date Fawad Xiong DO [address] [place] [address] [facility] - General03/18/16
--- OUTSIDE RECORDS SUMMARY | 2025-08-15 10:36 | XMS_ITS | Clinical Summary ---
Author Organization [facility] Address [address] [place], [place] [address] Care Team Providers Care Front Man Name Role Phone Fawad Xiong Primary Care Provider Allergies Active AllergyReactionsCriticalityNoted DateCommentsPromethazine HclHives 07/14/2010Sulfa (Sulfonamide Antibiotics)Hives07/14/2010TizanidineHives 08/14/20106075FdwfjdwkqYnjsc24/04/2010 Medications MedicationSigDispense QuantityRefillsLast FilledStart DateEnd DateStatus simvastatin (ZOCOR) 40 mg ORAL Tab Take one(1) tablet daily at bedtime BY MOUTH.07/14/2010ctive paroxetine (PAXIL) 20 mg ORAL Tab Take one(1) tablet daily BY MOUTH.07/14/2010ctive amitriptyline 100 mg ORAL tablet Take one(1) tablet at bedtime BY MOUTH.07/14/2010ctive levothyroxine (LEVOTHROID) 125 mcg tablet Take 1 tablet by mouth once daily.ctive rOPINIRole (REQUIP) 2 mg tablet Take 1.5 tablets by mouth once daily.ctive zolpidem (AMBIEN) 5 mg tablet Take 2 tablets by mouth at bedtime as needed. FOR LYHOUPXJ885/28/2012ctive lisinopril 20 mg tablet Take 20 mg by mouth twice daily.Active cyclobenzaprine 10 mg tablet Take 10 mg by mouth twice daily.Active acetaminophen-HYDROcodone 5-500 mg tablet Take 1 tablet by mouth three times daily.Active gabapentin (NEURONTIN) 300 mg capsule Take 300 mg by mouth three times daily.Active fluticasone-salmeterol (ADVAIR DISKUS) 250-50 mcg/dose dsdv Inhale 1 Puff as instructed twice daily.ctive albuterol HFA (PROAIR HFA) 90 mcg/actuation inhaler Inhale 2 Puffs as instructed every 6 hours as needed.ctive Active Problems ProblemNoted DateDiagnosed DateCervico-occipital neuralgia of the right side 05/14/2012lcohol abuse08/14/2010Major depressive disorder, recurrent episode, /04/3746Gbkkrbag47/04/3604Jdhbxmb71/04/7149Nlqvtfncqevv02/04/2010 Kbbved7107/14/20104624Gvarwrpsdcofmn09/04/2010Other syndromes affecting cervical region Family History Medical HistoryRelationCommentsAsthmaBrotherHeadacheChildBreast CancerMaternal AuntHypertensionMotherHeadacheSisterRelationStatusCommentsBrotherChildFather DeceasedMaternal AuntMotherDeceasedSister Social History Tobacco UseTypesPacks/DayYears UsedDateSmoking Tobacco: NeverSmokeless Tobacco: NeverAlcohol UseStandard Drinks/WeekCommentsNo0 (1 standard drink = 0.6 oz pure alcohol)quit drinking 2014CommentsNoSex and Gender InformationValueDate RecordedSex Assigned at BirthNot on fileLegal HdyNuksfv67/02/2012 10:05 AM EST Gender IdentityNot on fileSexual OrientationNot on fileOccupationIndustryJob Start DateJob End DatedisabledNot on fileNot on fileNot on file Last Filed Vital Signs Vital SignReadingTime TakenCommentsBlood Ddhkxnwx191/6309/06/2015 10:24 AM EST Nfbwf326709/06/2015 10:24 AM ROHJbquhkmafuw16.5 ??C (97.7 ??F)09/06/2015 10:24 AM ESTRespiratory Uwuz068611/06/2014 10:24 AM ESTOxygen Jhpnykfwwl00%09/06/2015 10:24 AM ESTInhaled Oxygen Concentration--Dptfgv06.7 kg (200 lb)09/06/2015 10:24 AM WRZNggoab193.1 cm (5' 5 )09/06/2015 10:24 AM ESTBody Mass Index33.28111/06/2014 10:24 AM EST Plan of Treatment Health MaintenanceDue DateLast DoneCommentsAnxiety Fswstubzi17/11/1982Depression Podxsnvyf04/11/1982HIV Fwnahfdgz79/11/1982Hepatitis C Nknpzveyl58/11/1982 DTaP,Tdap,Td Vaccine (1 - Tdap)1982Cervical Cancer Jqwxdeagk77/11/1985 Mammogram Qdzqfdcfn76/11/2004CT Ooxfujvpxkud69/11/2009Cologuard (FIT-DNA) 10/21/20086955Rxxnbodpsjn73/11/2009Colorectal Cancer Ppaalgfte72/11/2009Fecal Occult Blood2008Lipid Wmnqwgbln69/11/1388Zkmhmajgkmfoi79/11/2009Pneumococcal Vaccine: 50+ (1 of 1 - PCV)2013Shingrix Vaccine (1 of 2)2013Diabetes Swccbkgrb94, 10/17/2014, 10/25/2013, Additional history exists Covid-19 Vaccine (1 - 2024- season)2025Influenza Vaccine (#1)2025 RSV Vaccine (1 - 1-dose 75+ series)2038 Procedures Procedure NamePriorityDate/TimeAssociated DiagnosisCommentsBASIC METABOLIC PANEL Vpmhjtd5608/29/2015 9:57 AM EST Other chronic pain Mechanical complication of nervous system device, implant, and graft, sequela [T85.698S] from Last 3 Months or Most Recently Relevant to Health Maintenance Results * (ABNORMAL) BASIC METABOLIC PNL (08/29/2015 9:57 AM EST)ComponentValueRef Range Test MethodAnalysis TimePerformed AtPathologist GhzmbvwlbUlydgdf5845 - 100 mg/dL08/29/2015 12:45 PM ESTSELECT [facility] MA[facility] LABORATORYBUN6(L)8 - 25 mg/dL08/29/2015 12:[address] [facility] MA[facility] LABORATORYCreatinine0.810.70 - 1.40 mg/dL08/29/2015 12:45 PM ESTCLEMARIETTA OSTEOPATH[facility] MAIN KHWASTNRSPKovsay960 132 - 148 mmol/L110/29/2014 12:45 PM [facility] Potassium3.3(L)3.5 - 5.0 mmol/L110/29/2014 12:45 PM [facility] IRGHAVSWKPVxfrirtw90685 - 110 mmol/L110/29/2014 12:45 PM [facility] GKXZECKWPAHT58187 - 32 mmol/L110/29/2014 12:45 PM [facility] LABORATORYAnion Gap16(H)0 - 15 mmol/L110/29/2014 12:45 PM [facility] LABORATORYCalcium9.68.5 - 10.5 mg/dL08/29/2015 12:45 PM [facility] LABORATORYeGFR->6008/29/2015 12:45 PM [facility] LABORATORYeGFR-All Other Races>60.08/29/2015 12:45 PM EST [facility] LABORATORYComment: eGFR (Estimated GFR) Units of measure: mL/min/1.73 meters squared eGFR is derived from the reexpressed MDRD Study equation using the following parameters: serum creatinine, age, gender and race. The creatinine assay has been calibrated to be traceable to IDMS. An eGFR <60 mL/min/1.73m2 for >3 months is consistent with chronic kidney disease. Refer to KDOQI guidelines for clinical interpretation. In patients with unstable renal function, e.g. those with acute kidney injury, the eGFR may not accurately reflect actual GFR. Specimen (Source)Anatomical Location / LateralityCollection Method / Volume Collection TimeReceived TimeBlood specimen (specimen)BLOOD SPECIMEN / Unknown 08/29/2015 9:57 AM EST08/29/2015 9:59 AM EST Narrative Authorizing ProviderResult TypeResult StatusDenise Fish DAMON-CLABORATORYFinal ResultPerforming OrganizationAddressCity/State/ZIP CodePhone Number [facility] [address] [place] [address] from Last 3 Months or Most Recently Relevant to Health Maintenance Insurance Care Teams Team MemberRelationshipSpecialtyStart DateEnd Date Fawad Xiong DO PCP - Ufjdkxu78/11/15
--- OUTSIDE RECORDS SUMMARY | 2025-08-15 10:36 | XMS_ITS | Patient Health Record ---
Author Organization [facility] Address [address] [place], [place] [address] Care Team Providers Care Sld Inclusion Teacher Name Role Phone JameyDagoberto anthony Primary Care Provider [phone] Aure Eisenberg Allergies Allergen (clinical drug ingredient) Drug/Non Drug Allergy documented on EMR Reaction Allergy Type Onset Date Status Sulfamethoxazole MicroHivesDrug AllergyActive Reason For Referral No Information Medications Medication SIG (Take, Route, Frequency, Duration) Notes Start Date End Date Status Atorvastatin Calcium 40 MG TAKE 1 TABLET BY MOUTH EVERY DAY FOR 90 DAYS; Duration: 90 ActiveDiclofenac Sodium 75 MGOral; Duration: 5 DaysNot-TakingAimovig 70 MG/ML1 injection Subcutaneous once a monthActiverOPINIRole HCl 1 MG1 tablet 1 to 3 hours before bedtime Orally Once a day; Duration: 30 days5 days x 3mg, 5 days x 2.5mg, 5days x 2mg, 5 days x 1.5mg, 5 days x 1mg, 5 days x 0.5mg, 5 days x 0. 25mg, then stop.03/22/2024Not-TakingGlucosamine 750 MG1 tablet Orally daily; Duration: 90 daysActiverOPINIRole HCl 0.5 MG1 tablet 1 to 3 hours before bedtime Orally Once a day5 days x 3mg, 5 days x 2.5mg, 5days x 2mg, 5 days x 1.5mg, 5 days x 1mg, 5 days x 0.5mg, 5 days x 0.25mg, then stop.03/22/2024Not-Taking Gabapentin 300 MG1 capsule Orally twice a day; Duration: 30 days03/22/2024 Not-TakingTopiramate 50 MGTAKE 1 TABLET BY MOUTH EVERY DAY FOR 90 DAYS; Duration: 90ActiveCyclobenzaprine HCl 10 MG1 tablet Orally Twice daily as needed; Duration: 15 daysActiveAlbuterol Sulfate HFA 108 (90 Base) MCG/ACT2 puff as needed Inhalation every 4 hrsActiveAlbuterol Sulfate (2.5 MG/3ML) 0.083%3 mL as needed Inhalation every 8 hrs; Duration: 30 days11/18/2023Not-TakingMeloxicam 15 MG1 tablet Orally Once a daily as needed; Duration: 90 daysActive Amitriptyline HCl 100 MGTAKE 1 TABLET BY MOUTH EVERY DAY AT BEDTIME FOR 90 DAYS; Duration: 90 daysActiverOPINIRole HCl 4 MG1 tablet 1 to 3 hours before bedtime Orally Once a day; Duration: 90 daysActiveVerapamil HCl ER 120 MG1 tablet Orally Once a day; Duration: 90 daysActiveOmeprazole 40 MG1 capsule 30 minutes before morning meal Orally Once a day; Duration: 90 daysActiveVenlafaxine HCl ER 150 MG 1 capsule with food Orally Once a day; Duration: 90 daysActiveLevothyroxine Sodium 112 MCG1 tablet in the morning on an empty stomach Orally Once a day; Duration: 90 daysActive Immunizations Vaccine Route Administration Date Status Comme nts *Dnmyscunu-Wkbteswkm-Ptyui te IM Intramuscular 09/28/2023 Administered Social History Tobacco Use: Social History Observation Description Date Details (start date - stop date) Never Smoker NA - NA Sex Assigned At : Social History Observation Description Sex Assigned At Female Household Question Answer Notes Number of adults in household: 2 Number of children in household:0Tobacco Use/Smoking Question Answer Notes Tobacco use: nonsmoker patient enter ed data CAGE-AID Questionnaire (2018 Edition) Question Answer Notes Have you ever felt that you ought to cut down on your drinking or drug use? No patient entered data Have people annoyed you by c riticizing your drinking or drug use? No patient entered data Have you ever felt bad or gu ilty about your drinking or drug use? No patient entered data Have you ever had a drink or used drugs first thing in the morning to steady your nerves or to get rid of a hangover? No patient entered data CAGE-AID Score 0 InterpretationNegativePRAPARE Question Answer Notes Are you worried about losing your housing? No patient entered data Date Completed/Updated: 11/18/2023 ira nt entered data What is your current housing situation? I have housing patient entered data What is the highest level of school that you have finished? High school diploma or GED patient entered data What is your current work situation? Otherwise unemployed but not seeking work (ex. student, retired, disabled, unpaid primary health care coach) patient entered data In the past year, have you o r any family members you live with been unable to get any of the following when it was really needed? Check all that apply I do not have problems meeting my needs Has lack of transportation kept you from medical appointments, meetings, work or from getting things needed for daily living?Nopatient entered dataHow often do you see or talk to people that you care about and feel close to? (For example: talkingto friends on the phone, visiting friends or family, going to mormonism or club meetings)1 or 2 times a weekpatient entered dataHow stressed are you? Stress is when someone feels tense, nervous, anxious, or can't sleep at nightbecause their mind is troubledA little bitpatient entered dataIn the past year have you spent more than 2 nights in a row in a fdc, fpc, alf center, orjuvenile correctional facility?Nopatient entered dataAre you a refugee?Nopatient entered dataWhat country are you from?[place] patient entered dataDo you feel physically and emotionally safe where you currently live?Yespatient entered dataIn the past year, have you been afraid of your partner or ex-partner?Nopatient entered dataPRAPARE Score:6 Problems Problem Type SNOMED Code ICD Code Onset Dates Problem Status W/U Status Risk Notes Problem Anxiety (83594246) Anxiety (F41.9) ActiveconfirmedProblemMild intermittent asthma (009686057)Mild intermittent asthma without complication (J45.20)ActiveconfirmedProblemObese class I (290302588862475)BMI 33.0-33.9,adult (Z68.33)ActiveconfirmedProblem Hypothyroidism (66863487)Hypothyroidism, unspecified type (E03.9)Activeconfirmed ProblemH/O: high risk medication (326888049)High risk medication use (Z79.899) ActiveconfirmedProblemObstructive sleep apnea (59206345)Obstructive sleep apnea (G47.33)ActiveconfirmedProblemHyperlipidaemia (66407297)Hyperlipidemia, unspecified hyperlipidemia type (E78.5)ActiveconfirmedProblemBody mass index 30.00 to 34.99 (039852957230021)BMI 31.0-31.9,adult (Z68.31)Activeconfirmed ProblemPrimary hypertension (66248815)Primary hypertension (I10)Activeconfirmed- condition well managed with medication and diet, ordered labs, f/u in 6 months ProblemRefractory migraine with aura (315881892)Intractable migraine with aura with status migrainosus (G43.111)ActiveconfirmedProblemSingle episode of major depression in full remission (05619684)Major depressive disorder in remission, unspecified whether recurrent (F32.5)ActiveconfirmedProblemHysterectomy (223654320)Absence of both cervix and uterus, acquired (Z90.710)Activeconfirmed ProblemGastroesophageal reflux disease (449674271)GERD (gastroesophageal reflux disease) (K21.9)ActiveconfirmedComment:-filled meds per pt request for hx of GERD well controlled with Omeprazole,ProblemInsomnia (663314900)Insomnia (G47.00)ActiveconfirmedProblemBilateral anterior knee pain (M25.561)Active confirmed Comment:-Bilateral anterior/lateral and medial knee pain for the last 2 months w/o any trauma -there is no erythema, edema, effusion, warmth or deformity -all functional tests and bilateral knee X-Rays are wnls -cw NSAID, warm compresses and mild stretches and started on PO Prednisone for 1 week -if no relief with current treatment may start on PT/OT or Ortho referral, PVU, ProblemRestless legs (18093215)RLS (restless legs syndrome) (G25.81)Active confirmed -sxs stable and well managed with Ropinirole 4mg QD, no day time sxs -med refilled, f/u in 6 months ProblemArthralgia of the pelvic region and thigh (931171559)Left hip pain (M25.552)Inactiveconfirmed Comment:-there is no erythema, edema, bruising, ecchymosis or visible deformity -normal ROM of Lt hip with dull throbbing pain with prolonged sitting, walking and kneeling locatedat Lt lateroposterior hip started about 3 weeks ago w/o any trauma/injury -denies numbness, tingling or radiation of pain -no prior hx of Lt hip pain -provided Depo-Medrol IM injection, can use warm compresses and mild stretches as able -can use Tylenol OTC PRN for flare ups -ordered MRI per pt request -f/u after diagnostic test, ProblemArthralgia of the pelvic region and thigh (368165102)Right hip pain (M25.551)Inactiveconfirmed Comment:-4-5 year hx of Rt lat hip pain w/o any trauma/injury, never been evaluated before and has been getting worse recently -there is no erythema, edema, bruising, ecchymosis or visible deformity -mildly decreased ROM of Rt hip, dull throbbing pain with prolonged sitting, walking, hip flexion, extension and external rotation -Rt hip X-Rays are -ve, can use warm compresses and stretches/strengthening as able -cw Nabumetone 500mg PO BID PRN for pain relief -offered PT but pt refuses at this time -f/u in 1 month, ProblemEnthesopathy of hip region (64052595)Gluteal tendinitis, left hip (M76.02)Problem resolvedconfirmed Comment:-there is no erythema, edema, bruising, ecchymosis or visible deformity -normal ROM of Lt hip with dull throbbing pain with prolonged sitting, walking and kneeling locatedat Lt lateroposterior hip started about 3 weeks ago w/o any trauma/injury -denies numbness, tingling or radiation of pain -no prior hx of Lt hip pain -provided Depo-Medrol IM injection, can use warm compresses and mild stretches as able -can use Tylenol OTC PRN for flare ups -MRI demonstrate Gluteus Medius Tendonitis' -started on Muscle relaxer and PT -f/u after PT completion, ProblemRight upper quadrant pain (732723312)Chronic RUQ pain (R10.11)Problem resolvedconfirmed Comment:-c/o intermittent RUQ dull pain w/o radiation for the last 6 months -there is no rebound tenderness or rigidity noticed -she denies n/v/d or fever -she has cut back on alcohol consumption from last visit (she was drinking 24 packs of beer / week now drinks about 12 packs of beer/week) -encouraged to further cut back / abstinence from alcohol -no abnormality seen on abdomen US for GB, CBD & Liver -cw lifestyle modification and observe -f/u as needed, Encounters Encounter Location Date Provider Diagnosis [facility] [address] [facility] [place] [id number] 12/05/2024 Aure Eisenberg Plan Of Treatment No Information Insurance Providers Payer Name Payer Address Payer Phone Subscriber Number Group Number Insured Name Patient Relationship to Insured Coverage Start Date Coverage End Date [employer] [address] [address] [place] [address] [id number] Nory Brandt Self - patient is the insured [address] [facility] [address] [address] [place], [place] [id number] Brandtf - patient is the [id number] 2022 Medical (General) History Medical History History ICD Code Asthma Brain tumor, COMMENTS: removedDepressionDepression, COMMENTS: 1997, s: Inactive GERD (gastroesophageal reflux disease)HypertensionHypothyroidismInsomnia, : InactiveMigraine headacheRestless Leg Syndrome, inactiveRLS (restless legs syndromeVertigo, activeGluteal tendinitis, left hip (resolved 08/12/2023) undefinedChronic RUQ pain (resolved 08/12/2023)Surgical History Surgery Date(Month/Year) Carpal Tunnel Surgery - Both, Active, Brain Surgery, : Active,Tubal Ligation, Active,spur removed, , : Left,partial hysterectomy
--- OUTSIDE RECORDS SUMMARY | 2025-08-15 10:36 | XMS_ITS | Encounter Summary ---
Author Organization [facility] Address [id number] [place] [address] Care Team Providers Care Deputy Sheriff/Investigator Name Role Phone Jacque Daniel APRN-ROENTGENOLOGY TEACHER Primary Care Provider Encounter Details DateTypeDepartmentCare Team (Latest Contact Info)Vdhtbbrvybn21/26/2025Travel Social History Tobacco UseTypesPacks/DayYears UsedDateSmoking Tobacco: NeverSmokeless Tobacco: NeverAlcohol UseStandard Drinks/WeekCommentsNot Currently0 (1 standard drink = 0.6 oz pure alcohol)PHQ-2AnswerDate RecordedTotal Hmclw699/21/2021Childcare AnswerDate YewmoaldVwvbopsiqZwmjqgb08/12/2019EmploymentAnswerDate Recorded NsisimjcdkXiitunh64/12/2019Hunger ScreeningAnswerDate RecordedWithin the past 12 months we worried whether our food would run out before we got money to buy more.Never True08/05/2025Within the past 12 months the food we bought just didn't last and we didn't have money to get more.Never True08/05/2025Purpose - LifeAnswerDate RecordedPurpose and direction in lwftEvupjyw85/02/2021 CommentsNoSex and Gender InformationValueDate RecordedSex Assigned at Sozjkc9706/21/2024 2:41 PM EDTLegal YapAalefa36/06/2015 11:22 AM EDTGender IdentityNot on fileSexual OrientationNot on filedocumented as of this encounter Plan of Treatment Not on file documented as of this encounter Goals GoalPatient Goal TypeAssociated ProblemsRecent ProgressPatient-Stated?Author <enter goal here> Marisol Rose, RN Note: Evaluation of progress towards goal: snf documented as of this encounter Visit Diagnoses Not on filedocumented in this encounter Additional Health Concerns InfectionOnset DateLast IndicatedResolved TimeEnteric Rule-Out08/05/2025 10:52 AM EDTAssessmentNoted TimePHQ-9 Depression Total Score: 5004/30/2021 1:10 PM EDTA Body Mass Index follow-up plan has been documented for the asaajbg3909/21/2021 6:10 PM ESTdocumented as of this encounter Care Teams Team MemberRelationshipSpecialtyStart DateEnd Date Jacque Daniel, MACHINE DRILLER-ROENTGENOLOGY TEACHER [address] [place] [address] PCP - GeneralNurse Practitioner06/19/25documented as of this encounter
--- OUTSIDE RECORDS SUMMARY | 2025-08-15 10:36 | XMS_ITS | Patient Health Record ---
Author Organization [facility] in [place] Address [address] [place] [address] Care Team Providers Care Rabies Inspector Name Role Phone Fawad Xiong Do Primary Care Provider Unavaila ble Allergies Allergen (clinical drug ingredient) Drug/Non Drug Allergy documented on EMR Reaction Allergy Type Onset Date Status codeine Codeine (uncoded) hives Allergy ActiveSubstance with sulfonamide structure and antibacterial mechanism of action (substance)Sulfa (uncoded)hivesAllergyActivetizanidineTizanidine (uncoded)hives AllergyActive Reason For Referral No Information Medications Medication SIG (Take, Route, Frequency, Duration) Notes Start Date End Date Status SUMAtriptan Succinate 6 MG/0.5ML 0.5 ml as needed Subcutaneous Q1H PRN at onset of migraine; max 2 inj or tabs/24H, 4 inj or tabs/wk; Duration: 30 days 08/21/2016ActiveAmitriptyline HCl 100 mg1 tablet Orally Once at bedtimeActive Cyclobenzaprine HCl 10 MG1 tablet Orally Two times a dayActivePaxil 40 MG1 tablet Orally BIDActiveAlbuterol Sulfate HFA 108 (90 Base) MCG/ACT2 puffs as needed Inhalation every 4 hrsActiveLevothyroxine Sodium 150 MCG1 tablet Orally Once a dayActiveDepakote ER 250 MG1 tablet Orally Twice a day; Duration: 30 days 06/03/2016ActiveRequip 4 MG1 tablet Orally Once a dayActiveAmbien 10 MG1 tablet at bedtime as needed Orally Once a dayActiveLisinopril 20 MG1 tablet Orally BID ActiveSUMAtriptan Succinate 100 MG1 tablet Orally Q2H PRN at onset of migraine; max 2 tabs/24H, 4 tabs/wk; Duration: 30 days08/14/2016ActiveGabapentin 600 MG1 capsule Orally TIDActiveAdvair Diskus 250-50 MCG/DOSE1 puff Inhalation Twice a dayActiveSimvastatin 40 MG1 tablet in the evening Orally Once a dayActive Problems Problem Type SNOMED Code ICD Code Onset Dates Problem Status W/U Status Risk Notes Problem Migraine without aur a, not refractory (874077945) Migraine without aura and without status migrainosus, not intractable (G43.009) ActiveconfirmedProblemToxic metabolic encephalopathy (964460072)Toxic metabolic encephalopathy (G92)Activeconfirmed Plan Of Treatment No Information Insurance Providers Payer Name Payer Address Payer Phone Subscriber Number Group Number Insured Name Patient Relationship to Insured Coverage Start Date Coverage End Date [employer] PLAN [address] [place] [phone] [id number] Nory Brandt Self - patient is the insured 6 Medications Administered Medication Instructions Date of Administration Dosage Notes Bupivacaine mL Bilat ONB [facility] 3434-3893-50 Lidocaine HCl 1%, 10 mg/mL mL Bilat ONB [facility] 0135-1136-78 Methylprednisolone Acetate 40mg/mL mL Bilat ONB [facility] 6541-9073-59 Medical (General) History Medical History History ICD Code Hypothyroidism AsthmaRestless leg syndromeInsomniaHyperlipidemiaHypertensionMigraine headaches DepressionRemote benign brain tumor resected via right parietal craniotomy Bilateral carpal tunnelRight foot fxBone spur, left footchronic pain (has had pain stimulator)Surgical History Surgery Date(Month/Year) Occiptal nerve stimulation unit Breast implants [id number] reductionBilateral carpal tunnel releaseTubal ligation Partial hysterectomyRight foot bone spur removalBroken right footBrain tumor removedHospitalization History Reason Date(Month/Year) See above Neurological episode, memory loss/[id number]
--- OUTSIDE RECORDS SUMMARY | 2025-08-15 10:40 | XMS_ITS | CCD ---
Author Organization [facility]Care Care Team Providers Care Hotel Housekeeper Name Role Phone KORINA HERNANDEZ Admitting Unavailable KORINA HERNANDEZ Attending Unavailable HOUSE, DR CASTILLO Primary Care Unavailable NELSON ODEN Consulting Unavailable HOUSE, DR CASTILLO Admitting Unavailable HOUSE, DR CASTILLO Attending Unavailable HOUSE, DR CASTILLO Primary Care Unavailable HOUSE, DR CASTILLO Consulting Unavailable MIKE BURKETT Primary Care Physician MIKE BURKETT Referring Unavailable NILL, Jaswant Erazo Attending Unavailable NILL, Jaswant Erazo Attending Unavailable MADELAINE, MIKE Referring Unavailable NILL, Jaswant Erazo Attending Unavailable Kp Bello MD Primary Care Provider [phone] Shira Concepcion MD Unavailable Mike Burkett MD Unavailable Laura FUENTES, Daniel Unavailable [phone] Angela, MEGAN Bassett Attending Provider Unallocated , Noms Provider Primary Care Provi atif Kp Bello MD Primary Care Provider Sonia Miller Admitting Unavailable AngelaSonia Attending Unavailable NO FAMILY, PHYSICIAN Primary Care Unavailable Angela Sonia M Attending Unavailable Angela Sonia M Admitting Unavailable NO FAMILY, PHYSICIAN Primary Care Unavailable Shira Concepcion MD Primary Care Provider Angela Sonia GUZMAN Attending Provider [phone] NO FAMILY, PHYSICIAN Primary Care Provider Unava ilable Madelaine GUZMAN-Mike SCHMIDT Primary Care Provider Laura HAIRN-SHEEP FARM MANAGERDaniel Primary Care Pr ovider Daniel Sanchez NP Unavailable Sanchez WAREHOUSE SUPERVISOR-SHEEP FARM MANAGER, Daniel Donal Primary Care Pr ovider María [facility], Jacque Unavailable María [facility], Jacque Unavailable Sanchez [facility]-C, Daniel Mans[place] Primary Care Provid er María [facility], aJcque Edwards Attending Provider [phone] KRISTA GALEANO Attending Unavailable KRISTA GALEANO Referring Unavailable QUINTEN FIGUEROA Attending Unavailable KRISTA GALEANO Attending Unavailable JACQUE DANIEL Attending Unavailable BRAVO GOODE Attending Unavailable DANIEL SANCHEZ Attending Unavailmanan e JACQUE DANIEL Attending Unavailable JACQUE DANIEL Attending Unavailable KRISTA GALEANO Attending Unavailable QUINTEN FIGUEROA Attending Unavailable KRISTA GALEANO Attending Unavailable KRISTA GALEANO Referring Unavailable QUINTEN FIGUEROA Attending Unavailable QUINTEN FIGUEROA Referring Unavailable RICARDA TY Attending Unavailable LAURA, DANIEL Referring Unavailabl e CLAIRE TYMY Attending Unavailable MANUEL, RICARDA Attending Unavailable DANIEL SANCHEZ Attending Unavailabl e TY, RICARDA Attending Unavailable TY, RICARDA Attending Unavailable TY, RICARDA Attending Unavailable VERA NIETO Attending Unavailable BRAVO GOODE Attending Unavailable BRAVO GOODE Referring Unavailable DANIEL SANCHEZ Attending Unavailabl DENISE Jackson Attending Unavailable MIKE BURKETT Referring Unavailable SANCHEZ, DANIEL N Primary Care Unavaila PB Ngo Admitting Unavailable PB PRASAD Attending Unavailable MIKE BURKETT Referring Unavailable SANCHEZ, DANIEL N Primary Care Unavaila PB Ngo Attending Unavailable PB PRASAD Referring Unavailable SANCHEZ, [facility] Primary Care Unavaila DENISE Morris Attending Unavailable LAURA, DANIEL N Referring Unavaila ble LAURA, [facility] Primary Care Unavaila PB Ngo Attending Unavailable PB PRASAD Referring Unavailable SANCHEZ, DANIEL Mansfield Primary Care Unavaila ble PB PRASAD Admitting Unavailable PB PRASAD Attending Unavailable SANCHEZ, DANIEL Mansfield Referring Unavaila ble SANCHEZ, DANIEL N Primary Care Unavaila ble NIDENISE HERNANDEZ Attending Unavailable SANCHEZ, DANIEL N Referring Unavaila ble SANCHEZ, DANIEL N Primary Care Unavaila ble NIKRISTA HERNANDEZ Attending Unavailable SANCHEZ, DANIEL N Referring Unavaila ble SANCHEZ, DANIEL N Primary Care Unavaila ble PRASADPB Attending Unavailable PB PRASAD Referring Unavailable SANCHEZ, DANIEL N Primary Care Unavaila ble PRASAD, PB Viramontes Admitting Unavailable EMILE, PB Viramontes Attending Unavailable SANCHEZ, DANIEL N Referring Unavaila ble SANCHEZ, DANIEL N Primary Care Unavaila ble NIDAVID, KRISTA Ghotra Attending Unavailable SANCHEZ, DANIEL N Referring Unavaila ble SANCHEZ, DANIEL N Primary Care Unavaila ble AICHHOLZ, JACQUE J Primary Care Unavailable AICHHOLVirginia, JACQUE Edwards Primary Care Unavailable NATA ALLISON Attending Unavailable Sanchez [facility], Daniel Mansfield Primary Care Provid er María [facility]-CJacque Attending Provider María [facility]-CJacque Primary Care Provider Allergies Allergy ClassificationReported Allergen(s)Allergy TypeDate of OnsetReaction(s) Facility (2 sources)Codeine; Translations: [CODEINE]Drug Cogcakv53-00-8791Wxb [facility] Repository (1 source)Sulfonamides (Antibiotic)Drug allergy (disorder)72-03-6959Wdl [facility] Rep[facility] (2 sources)tiZANidine; Translations: [TIZANIDINE]Drug Shwxrgr07-75-1000Cqp [facility] Rep[facility] (1 source)Egg/PoultryDrug allergy (disorder)45-28-3033Ngb [facility] (2 sources)Sulfonamides (Antibiotic); Translations: [sulfa drugs]Drug allergy Weal (disorder)[facility] (20 sources)Acetaminophen / CodeineDrug Aomqdgv66-29-9972JklpAHEL [facility] (20 sources)CodeineDrug Perytck27-65-9763KhngCWIT [facility] (20 sources)Ketorolac; Translations: [KETOROLAC]Allergy to fukdxbecc63-98-7500 [facility] (20 sources)PromethazineDrug Cqkgmdy74-81-9452KtzxpAFVS Healthcare (20 sources)Sulfamethoxazole / Trimethoprim; Translations: [SULFAMETHOXAZOLE-TRIMETHOPRIM]Drug Upzhypq87-42-9877TvukKYQT Healthcare (20 sources)Sulfonamides (Antibiotic)Drug Zqrqrmg09-65-0476Myaiz, RashNOCooper [facility] (20 sources)tiZANidineDrug Tvrzxst44-79-2936JnpbbMBZA Healthcare (3 sources)Sulfonamides (Antibiotic); Translations: [SULFA (SULFONAMIDE ANTIBIOTICS)]Drug allergy (disorder)28-45-1044Tnszgeszz[facility] (8 sources)KetorolacDrug Brbffcg62-25-4240WptliMedStar [facility] (9 sources)Promethazine; Translations: [PROMETHAZINE HCL]Drug Cleaptp92-89-5616 [facility] Medications Current Medications MedicationDrug Class(es)DatesSig (Normalized)Sig (Original)albuterol 0.83 mg/ml inhalation solution (20 sources)beta2-Adrenergic AgonistStart: 96-02-9436oawz 2.5 mg by inhalation every four to six hours as needed for wheezingAlbuterol Sulfate 2.5 mg /3 mL (0.083 %) solution for nebulization Active 2.5 MG INHALATION EVERY 4-6 HOURS as needed for shortness of breath or wheezing 90 July 09, 2025 11:00pm Dyspnea Dyspnea, unspecified Complies with drug therapyStart: 84-25-8762ivvg 2 puff(s) by inhalation every six hoursalbuterol HFA 90 mcg/act inhaler Inhale 2 puffs every 6 (six) hours if needed 10/23/2024 ActiveStart: 17-90-9756Lkavfwznv Sulfate 90 mcg/actuation HFA aerosol inhaler Active 2 INH INHALATION EVERY 4-6 HOURS as needed for shortness of breath or wheezing 8.5 0 September 13, 2024 12:00am Complies with drug therapyStart: 08-02-2024 End: 48-08-1034Rynorblcg Sulfate 90 mcg/actuation HFA aerosol inhaler Discontinued INHALATION August 01, 2024 11:00pm October 26, 2024 1:45pm albuterol (2.5 MG/3ML) 0.083% nebulizer solution INHALE 3 ML VIA NEBULIZER THREE TIMES DAILY, NEEDED 30 DAYS Activetake 2 puff(s) by inhalation every four hours as needed for wheezingalbuterol (PROVENTIL HFA;VENTOLIN HFA) 90 mcg/actuation inhaler Inhale 2 puffs every 4 (four) hoursas needed for wheezing. Activeamitriptyline hydrochloride 100 mg oral tablet (20 sources)Tricyclic AntidepressantStart: 60-36-8710Tpbbigluvchxg Active MG PO August 02, 2024 12:00amStart: 12-09-2023 End: 63-02-1879Orydkzgohwnos 100 mg tablet Active MG PO August 01, 2024 11:00pm Complies with drug therapycelecoxib 100 mg oral capsule (20 sources)Nonsteroidal Anti-inflammatory DrugStart: 10-10-2024 End: 73-94-4314jnln 1 capsule by mouth at bedtimecelecoxib (CeleBREX) 100 MG capsule Indications: Degenerative disc disease, cervical TAKE 1 CAPSULE(100 MG) BY MOUTH IN THE MORNING AND BEFORE BEDTIME 60 capsule 3 06/14/2025 Active clindamycin 300 mg oral capsule (1 source)Lincosamide AntibacterialStart: 05-17-2024 End: 53-06-8305nymzkoaifqf (CLEOCIN) 300 mg capsule Take 1 capsule (300 mg total) by mouth in the morning and 1 capsule (300 mg total) at noon and 1 capsule (300 mg total) in the evening and 1 capsule (300 mg total) before bedtime. 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 05/17/2024 05/27/2024 Active cyclobenzaprine hydrochloride 10 mg oral tablet (20 sources)Muscle RelaxantStart: 19-72-8026Khyuylafgeeomek Active MG PO August 02, 2024 12:00amStart: 12-09-2023 End: 70-81-5650pvva 1 tablet by mouth three times daily as needed for muscle spasmsCyclobenzaprine 10 mg tablet Active 10 MG PO Three times daily as needed for muscle spasm 90 2 August 15, 2025 10:03am Chronic pain Other chronic pain Complies with drug therapy1 ml dexamethasone phosphate 4 mg/ml injection (2 sources)CorticosteroidStart: 06-26-2025 End: 23-41-0709pdtDSIBCcndfq (Decadron) injection 12 mgStart: 06-26-2025 End: 04-87-7453zbxysf 12 mg by subcutaneous injection once12 mg, Intramuscular, Once, On Wed06/26/25 at 1645, For 1 dose, Subcutaneous, trigger pointsdiclofenac sodium 75 mg delayed release oral tablet (1 source)Nonsteroidal Anti-inflammatory DrugStart: 55-86-4653mrho 1 tablet by mouth twice dailydiclofenac sodium 75 mg Oral EC Tab 75 mg = 1 tab(s), Oral, BID, Refills(s) 0 Start Date: 12/09/23 Status: Orderedfluticasone propionate 0.05 mg/actuat metered dose nasal spray (20 sources)CorticosteroidStart: 09-93-7880vxhl 1 spray(s) nasal route once dailyFluticasone Propionate (Flonase Allergy Relief) 50 mcg/actuation spray,suspension Active 2 SPRAY INTRANASAL Daily June 26, 2025 11:00pm administer into each nostril Complies with drug therapyStart: 12-19-2024 End: 68-84-5426ngcp 2 spray(s) nasal route once dailyfluticasone (Flonase) 50 MCG/ACT nasal spray Indications: Chronic rhinitis Administer 2 sprays intoeach nostril Daily Shake gently. Before first use, prime pump. After use, clean tip and replace cap. 48 mL 1 05/07/2025 08/05/2025 ActiveStart: 79-85-9417iize 1 spray(s) nasal route in the morningfluticasone (Flonase) 50 MCG/ACT nasal spray Indications: Chronic rhinitis SPRAY 1 SPRAY INTO EACH NOSTRIL IN THE MORNING 24 mL 2 11/20/2024 ActiveStart: 09-25-2024 End: 56-34-8161wbfe 1 spray(s) nasal route in the morningfluticasone (Flonase) 50 MCG/ACT nasal spray Indications: Chronic rhinitis Administer 1 spray into e ach nostril in the morning. 16 g 2 09/25/2024 11/20/2024 Discontinuedtake 1 spray(s) nasal route in the morningfluticasone propionate (FLONASE) 50 mcg/actuation nasal spray Administer 1 spray into each nostril in the morning. Activefluticasone / salmeterol (8 sources)Corticosteroid, beta2-Adrenergic Agonistfluticasone-salmeterol (ADVAIR) 250-50 mcg/dose DISKUS Inhale 1 puff as needed in the morning and 1puff as needed in the evening. Activetake 1 puff(s) by inhalation twice daily as neededfluticasone-salmeterol (ADVAIR) 250-50 mcg/dose DISKUS Inhale 1 puff 2 (two) times a day as needed.NdljmpYyxpljejzcg-Aerlvvrfx-Rdyqxhlb (20 sources)Anticholinergic, Corticosteroid, beta2-Adrenergic AgonistStart: 42-94-0267Hregajvsrui-Umeclidin-Vilanter (Trelegy Ellipta) 100-62.5-25 mcg blister with device Active 1 INH INHALATION Daily 60 5 August 08, 2025 10:57am Moderate persistent asthma Moderate persistent asthma, uncomplicated Complies with drug therapyStart: 06-27-2025 End: 99-42-3181Xwuidpemihu-Umeclidin-Vilanter (Trelegy Ellipta) 100-62.5-25 mcg blister with device Discontinued 1INH INHALATION Daily June 26, 2025 11:00pm August 08, 2025 10:58amStart: 06-27-2025 Srmefooyfvv-Nzjjfpzbm-Tuogvjne (Trelegy Ellipta) 100-62.5-25 mcg blister with device Active 1 INH INHALATION Daily June 27, 2025 12:00am Complies with drug therapyStart: 05-07-2025 End: 52-68-8874fkll 1 puff(s) by mouth once ppohdAoxvjxjcjgk-Nmxlzxhwy-Crmrbq (Trelegy Ellipta) 100-62.5-25 MCG/ACT aerosol powder Indications: Moderate persistent asthma without complication (HCC) Inhale 1 puff Daily Rinse mouth after use 60 each 2 05/07/2025 Active1 ml galcanezumab-gnlm 120 mg/ml auto-injector (5 sources)Start: 11-21-2024 End: 96-32-5736pdxokbhsczlk (Emgality) 120 MG/ML auto-injector Indications: Migraine with aura, intractable, with status migrainosus (CMS/HCC) Inject 1 Syringe (120 mg) under the skin every 30 (thirty) days 1 each 11/21/2024 12/13/2024 Discontinued (Med list cleanup)glucosamine sulfate 750 mg oral tablet (20 sources)Start: 09-18-2024 End: 00-11-3188yhax 1 tablet by mouth once dailyGlucosamine Sulfate 750 MG tablet Indications: Intervertebral disc stenosis of neural canal of cervical region Take 750 mg by mouth Daily 90 tablet 1 01/09/2025 04/09/2025 ActiveStart: 01-10-1318hevwtcnhezs 750 mg oral tablet See Instructions, as directed, Refills(s) 0 Start Date: 12/09/23 Status: Ordered End: 93-39-6362eupk 1 tablet by mouth once dailyGlucosamine 750 MG tablet Take 750 mg by mouth 1 (one) time each day at the same time 10/25/2024 Discontinued (Duplicate order)glucosamine HCl/chondroitin horn (GLUCOSAMINE-CHONDROITIN ORAL) (8 sources)take 1 tablet by mouth in the morningglucosamine HCl/chondroitin horn (GLUCOSAMINE-CHONDROITIN ORAL) Take 1 tablet by mouth in the morningand 1 tablet before bedtime. 1500 Xs 2. Activelevothyroxine sodium 0.088 mg oral capsule (20 sources)l-ThyroxineStart: 18-65-1097ojdl 1 capsule by mouth once daily Levothyroxine 88 mcg capsule Active 88 MCG PO Daily September 13, 2024 12:00am Complies with drug therapyStart: 08-18-2024 End: 69-08-0321klrb 1 tablet by mouth before mealtimelevothyroxine (Synthroid, Levoxyl) 88 MCG tablet Indications: Hypothyroidism, unspecified type Take1 tablet (88 mcg) by mouth in the morning. Take before meals. 90 tablet 1 05/07/2025 08/05/2025 ActiveStart: 08-02-2024 End: 30-52-4991Bwllihwlghntv 112 mcg tablet Discontinued MCG PO August 01, 2024 11:00pm September 13, 2024 5:20pmStart: 50-19-9358Holgqgmtbmhcu Active MCG PO August 02, 2024 12:00amStart: 43-03-4348zopp 1 tablet by mouth once daily levothyroxine 112 mcg (0.112 mg) Tab 112 mcg = 1 tab(s), Oral, Daily, Refills(s) 0 Start Date: 12/09/23 Status: Orderedloratadine 10 mg oral tablet (20 sources)Start: 01-09-2025 End: 24-69-5703cgkd 1 tablet by mouth once dailyLoratadine (Allergy Relief (Loratadine)) 10 mg tablet Active 10 MG PO Daily June 26, 2025 11:00pm Complies with drug gadcgbk01 hr metoprolol succinate 50 mg extended release oral tablet (12 sources)beta-Adrenergic BlockerStart: 60-79-0837txib 1 tablet by mouth once dailyMetoprolol Succinate 50 mg tablet extended release 24 hr Active 50 MG PO Daily June 261:00pm Complies with drug therapyStart: 05-29-2025 End: 46-53-0973zqzh 1 tablet by mouth every twenty-four hours in the morning metoprolol succinate XL (Toprol-XL) 50 MG 24 hr tablet Indications: Migraine with aura, intractable, with status migrainosus Take 1 tablet (50 mg) by mouth in the morning. 30 tablet 5 05/29/2025 11/25/2025 ActiveMULTIVIT- MIN/IRON/FOLIC/LUTEIN (CENTRUM SILVER WOMEN ORAL) (8 sources)take 1 tablet by mouth once in the morningMULTIVIT- MIN/IRON/FOLIC/LUTEIN (CENTRUM SILVER WOMEN ORAL) Take 1 tablet by mouth in the morning. Activetake 1 tablet by mouth once dailyMULTIVIT-MIN/IRON/FOLIC/LUTEIN (CENTRUM SILVER WOMEN ORAL) Take 1 tablet by mouth daily. ActiveNON FORMULARY (8 sources)NON FORMULARY Med Name: potassium 99 mg, osteo-bi flex, brain performance support daily, Activeomeprazole 40 mg delayed release oral capsule (20 sources)Proton Pump InhibitorStart: 05-31-2019 End: 57-00-1976qutq 1 capsule by mouth once dailyOmeprazole 40 mg capsule,delayed release(DR/EC) Active 40 MG PO Daily September 13, 2024 12:00am Complies with drug therapypotassium gluconate 2.5 meq oral tablet (20 sources)Start: 10-25-2024 End: 43-70-2296lyov 1 tablet by mouth once dailyPotassium Gluconate 595 mg (99 mg) tablet Active 595 MG PO Daily July 06, 2025 11:00pm Complies with drug therapytake 1 tablet by mouth in the morningpotassium gluconate 600 mg (99 mg) tablet Take 1 tablet by mouth in the morning. ActivepredniSONE 10 mg oral tablet (7 sources)Start: 05-29-2025 End: 56-05-4048cgtz 6 tablets by mouth once daily, then take 5 tablets by mouth once daily, then take 4 tablets bymouth once daily, then take 3 tablets by mouth once daily, then take 2 tablets by mouth once daily,then take 1 tablet by mouth once dailypredniSONE (Deltasone) 10 MG tablet Indications: status migrainosus Take 6 tablets (60 mg) by mouthDaily for 2 days, THEN 5 tablets (50 mg) Daily for 2 days, THEN 4 tablets (40 mg) Daily for 2 days,THEN 3 tablets (30 mg) Daily for 2 days, THEN 2 tablets (20 mg) Daily for 2 days, THEN 1 tablet (10mg) Daily for 2 days. 42 tablet 05/29/2025 06/10/2025 ActiverOPINIRole 4 mg oral tablet (20 sources)Nonergot Dopamine AgonistStart: 57-53-6780Tytowrsstq Active MG PO August 02, 2024 12:00amStart: 01-22-2023 End: 93-27-8238Tjiweqyokn 4 mg tablet Active MG PO August 01, 2024 11:00pm Complies with drug therapysimvastatin 40 mg oral tablet (4 sources)HMG-CoA Reductase Inhibitor End: 02-90-5090nhdq 1 tablet by mouth at bedtimesimvastatin (Zocor) 40 MG tablet Take 40 mg by mouth at bedtime 11/01/2024 Discontinued (Med list cleanup) SUMAtriptan 50 mg oral tablet (20 sources)Serotonin-1b and Serotonin-1d Receptor AgonistStart: 50-38-8559hqzl 1 tablet by mouth every two hoursSumatriptan Succinate 50 mg tablet Active 0 PO .COMPLEX June 26, 2025 11:00pm take 1 tab at onset of headache; if no relief may repeat 1 tab after at least 2 hrs; max = 4 tabs/24 hr PO Complies with drug therapyStart: 12-15-2024 End: 13-11-1854mcxf 1 tablet by mouth every two hoursSumatriptan Succinate 50 mg tablet Active 0 PO .COMPLEX June 27, 2025 12:00am take 1 tab at onset of headache; if no relief may repeat 1 tab after at least 2 hrs; max = 4 tabs/24 hr PO Complies with drug therapyStart: 09-22-2021 End: 70-41-8149CICEvszpynf (IMITREX) 50 mg tablet Indications: Chronic migraine with aura Take 1 tablet (50 mg total) by mouth once as needed for migraine. May repeat in 2 hours if unresolved. Do not exceed 200 mg in 24 hours. 9 tablet 3 09/22/2021 Activetopiramate 200 mg oral tablet (20 sources)Start: 08-02-2024 End: 15-83-1556ardz 1 tablet by mouth twice daily in the morning, then take 2 tablets by mouth in the eveningTopiramate 200 mg tablet Active 200 MG PO Twice daily June 26, 2025 11:00pm 1 am, 2 pm Complies with drug therapyStart: 04-00-5027aghoyjjjkk (Topamax) 200 MG tablet Indications: Migraine with aura, intractable, with status migrainosus 1 tab QAM and 2 tabs QPM 270 tablet 1 12/05/2024 ActiveStart: 39-88-5580Oqdtnjygbp Active MG PO August 02, 2024 12:00amStart: 05-17-2024 End: 33-57-2578ypvs 1 tablet by mouth in the morning, then take 2 tablets by mouth in the eveningtopiramate (Topamax) 200 MG tablet Indications: Migraine with aura, intractable, with status migrainosus (CMS/HCC) TAKE 1 TABLET BY MOUTH IN THE MORNING AND 2 TABLETS IN THE EVENING 270 tablet 1 06/13/2024 ActiveStart: 01-72-6739efdv 1 tablet by mouth once dailytopiramate 50 mg Tab 50 mg = 1 tab(s), Oral, Daily, Refills(s) 0 Start Date: 12/09/23 Status: OrderedStart: 05-29-2408jloj 1 tablet by mouth twice dailytopiramate (TOPAMAX) 50 mg tablet Indications: Restless leg syndrome , Chronic migraine with aura Take 1 tablet (50 mg total) by mouth 2 (two) times a day. 60 tablet 3 2021 Activetake 2 tablets by mouth once dailytopiramate (TOPAMAX) 200 MG tablet Take 2 tablets (400 mg total) by mouth nightly. Activeubidecarenone 30 mg oral capsule (8 sources)coenzyme Q10 30 mg capsule Take 1 capsule (30 mg total) by mouth in the morning and 1 capsule (30 mg total) at noon and 1 capsule (30 mg total) before bedtime. Activetake 1 capsule by mouth three times dailycoenzyme Q10 30 mg capsule Take 1 capsule (30 mg total) by mouth 3 (three) times a day. Adurfg35 hr venlafaxine 75 mg extended release oral capsule (20 sources)Serotonin and Norepinephrine Reuptake InhibitorStart: 55-22-7778xstz 1 capsule by mouth once dailyVenlafaxine (Effexor Xr) 75 mg capsule,extended release 24hr Active 75 MG PO Daily June 26, 2025 11:00pm Complies with drug therapyStart: 10-25-2024 End: 33-76-9073fjbu 1 capsule by mouth once dailyVenlafaxine (Effexor Xr) 75 mg capsule,extended release 24hr Active 75 MG PO Daily June 27, 2025 12:00am Complies with drug therapyStart: 25-81-4386wavg 1 capsule by mouth every twenty- four hoursVenlafaxine 150 mg capsule,extended release 24hr Active MG PO August 01, 2024 11:00pmStart: 08-02-2024 End: 70-30-8400vkuh 1 capsule by mouth every twenty-four hoursVenlafaxine 150 mg capsule,extended release 24hr Discontinued MG PO August 01, 2024 11:00pm June 27, 2025 8:07amStart: 43-34-5167Eurxxdxfwod Active MG PO August 02, 2024 12:00amStart: 12-09-2023 End: 13-80-9854xkuu 1 capsule by mouth once dailyvenlafaxine 150 mg Cap-ER 150 mg = 1 cap(s), Oral, Daily, Refills(s) 0 Start Date: 12/09/23 Status: Ordered zolpidem tartrate 10 mg oral tablet (20 sources)gamma-Aminobutyric Acid-ergic AgonistStart: 47-54-2395Ffidrnqb Active MG PO August 02, 2024 12:00amStart: 06-06-2024 End: 27-21-0431Qtzbvanm 10 mg tablet Active MG PO August 01, 2024 11:00pm Complies with drug therapy Completed/Discontinued Medications MedicationDrug Class(es)DatesSig (Normalized)Sig (Original)amoxicillin 875 mg / clavulanate 125 mg oral tablet (7 sources)Penicillin-class AntibacterialStart: 07-18-2025 End: 27-51-5966snje 1 tablet by mouth twice daily at mealtimeAmoxicillin-Pot Clavulanate 875-125 mg tablet Discontinued 1 TAB PO Twice daily 20 0 July 17, 2025 11:00pm August 15, 2025 9:40am Acute sinusitis Acute sinusitis, unspecified take with foodStart: 02-06-2025 End: 76-76-7734dkwf 1 tablet by mouth in the morningamoxicillin-clavulanate (Augmentin) 875-125 MG tablet Indications: Acute non-recurrent pansinusitisTake 1 tablet (875 mg) by mouth in the morning and 1 tablet (875 mg) in the evening. Do all this for 10 days. Take with food. 20 tablet 02/06/2025 02/18/2025 Discontinued (Therapy completed)Start: 02-06-2025 End: 51-69-2703wajq 1 tablet by mouth once in the morningamoxicillin-pot clavulanate (AUGMENTIN) 875-125 mg per tablet Take 1 tablet by mouth in the morningand 1 tablet before bedtime. 02/06/2025 02/16/2025 Activeatorvastatin 20 mg oral tablet (20 sources)HMG-CoA Reductase InhibitorStart: 11-74-4395Nbdzuvdocmkz Active MG PO August 02, 2024 12:00amStart: 07-17-2024 End: 26-62-7095Pmzkigfzsleg 20 mg tablet Discontinued MG PO August 01, 2024 11:00pm July 27, 2025 11:02amStart: 94-18-3200fwhm 1 tablet by mouth once dailyatorvastatin 40 mg Tab 40 mg = 1 tab(s), Oral, Daily, Refills(s) 0 Start Date: 12/09/23 Status: Ordered5 ml bupivacaine hydrochloride 5 mg/ml injection (8 sources)Amide Local AnestheticStart: 06-05-2025 End: 15-50-0484njbenhljzhk PF (Marcaine) 0.5 % injection 2 mLStart: 06-05-2025 End: mL, Injection, Once PRN Procedure, Starting on Wed06/05/25 at 0925, For 1 doseStart: 05-22-2025 End: 38-56-7137kddmyfogvef PF (Marcaine) 0.5 % injection 2 mLStart: 05-22-2025 End: mL, Injection, Once PRN Procedure, Starting on Wed05/22/25 at 0911, For 1 dosecephalexin 500 mg oral capsule (8 sources)Cephalosporin AntibacterialStart: 08-02-2024 End: 01-70-5938dxbq 1 capsule by mouth twice dailyCephalexin 500 mg capsule Discontinued 500 MG PO Twice daily 14 7 0 August 01, 2024 11:00pm September 13, 2024 5:19pm1 ml erenumab-aooe 140 mg/ml auto-injector (20 sources)Start: 08-02-2024 End: 30-14-1060Tismtqqk-Aooe (Aimovig Autoinjector) 140 mg/mL auto-injector Discontinued MG SUBCUT August 01, 2024 11:00pm August 15, 2025 9:41am Start: 07-07-2024 End: 26-96-6929ykyreo 1 mL by subcutaneous injection onceerenumab (Aimovig) 140 MG/ML injection Indications: Migraine with aura, intractable, with status reba rainosus (CMS/HCC) Inject 1 mL (140 mg) under the skin every 28 (twenty-eight) days 1 each 3 09/18/2024 11/21/2024 Discontinued (Formulary change)Start: 92-46-9287IYKLAOP AUTOINJECTOR 140 mg/mL auto-injector 150 mg. 05/11/2024 Active Start: 68-20-5544arfpkf 70 mg by subcutaneous injection every monthAimovig SureClick 70 mg/mL subcutaneous solution 70 mg, SubCutaneous, qMonth, Refills(s) 0 Start Date: 12/09/23 Status: OrderedStart: 68-42-4211fmakun 1 dose by subcutaneous injection every 30 dayserenumab (Aimovig) 70 MG/ML injection Indications: Migraine with aura, intractable, with status migrainosus (CMS/HCC) 1 injection subcutaneous every 30 days 3 each 1 10/07/2023 Activegabapentin 300 mg oral capsule (3 sources)Anti-epileptic AgentStart: 03-22-2024 End: 16-66-9710bfdq 1 capsule by mouth every twelve hoursgabapentin (Neurontin) 300 MG capsule Take 1 capsule by mouth every 12 (twelve) hours 03/22/2024 Discontinued (Other)meloxicam 15 mg oral tablet (20 sources)Nonsteroidal Anti-inflammatory DrugStart: 33-92-8810Jbfyejysp Active MG PO August 02, 2024 12:00amStart: 01-22-2023 End: 31-79-6588Pjujtnzsu 15 mg tablet Discontinued MG PO August 01, 2024 11:00pm October 26, 2024 1:47pm1 ml methylPREDNISolone acetate 40 mg/ml injection (8 sources)CorticosteroidStart: 06-05-2025 End: 85-87-7063bwrewgZAOYWLRezacn acetate (DEPO-Medrol) injection 40 mgStart: 06-05-2025 End: 98-99-487127 mg, Intra-articular, Once PRN Procedure, Starting on Wed06/05/25 at 0925, For 1 doseStart: 05-22-2025 End: 54-80-4327mixtgpAGRXIQGirnzp Acetate (DEPO-Medrol) injection 40 mgStart: 05-22-2025 End: 11-98-337988 mg, Intra-articular, Once PRN Procedure, Starting on Wed05/22/25 at 0911, For 1 dosemupirocin 0.02 mg/mg topical ointment (18 sources)RNA Synthetase Inhibitor AntibacterialStart: 05-17-2024 End: 05-08-9263lcyjqwvzg (Bactroban) 2 % ointment Indications: Chronic rhinitis Apply to each side of the nose twice daily 3 weeks 15 g 1 05/17/2024 08/14/2024 Discontinuedverapamil hydrochloride 120 mg extended release oral tablet (20 sources)Calcium Channel BlockerStart: 08-02-2024 End: 01-14-8554Pdkuqvtiv 120 mg tablet extended release Discontinued MG PO August 01, 2024 11:00pm October 26, 2024 1:47pmStart: 78-93-6470Jmuaxyjga Active MG PO August 02, 2024 12:00amStart: 92-78-1530fuvl 1 capsule by mouth once dailyverapamil 120 mg Cap-ER 120 mg = 1 cap(s), Oral, Daily, Refills(s) 0 Start Date: 12/09/23 Status: Orderedtake 1 tablet by mouth once dailyverapamil SR (Calan SR) 120 MG ER tablet Take 120 mg by mouth 1 (one) time each day at the same time Active Problems Active Problems Problem ClassificationProblemDateDocumented DateEpisodic/Chronic Administrative/social admission (2 sources)First encounter by subject; Translations: [Persons encountering health services in other specified circumstances]16-30-0884NhqtwoygSzwalwk- related disorders (20 sources)Alcohol abuse; Translations: [Alcohol abuse, uncomplicated]Onset: 920605-72-7669KakdjghPpxzgdw disorders (20 sources)Anxiety; Translations: [Anxiety disorder, unspecified]Onset: 221150-72-1743SdxpsaeIpyrjg (20 sources)Unspecified asthma, uncomplicated; Translations: [Asthma]Onset: 07-14-2010 Resolved: 086360-43-1160FlfeexfEphqnxtegf associated with dizziness or vertigo (20 sources)Vertigo; Translations: [Dizziness and giddiness]Onset: 07-14-2010 72-30-1675VxcmkkrvAbyunvsr atherosclerosis and other heart disease (20 sources)Coronary arteriosclerosis; Translations: [Atherosclerotic heart disease of knik coronary artery without angina pectoris]Onset: 02-03-2023 75-22-0763NmvixngNmaieshog of lipid metabolism (20 sources)Pure hypercholesterolemia, unspecified; Translations: [Hypercholesterolemia]Onset: 07-14-2010 Resolved: 810041-64-3923HhemqnmXawrisyc; convulsions (20 sources)Seizure; Translations: [Unspecified convulsions]Onset: 06-29-2019 67-33-4079CwpzcjrpKlcetgrgvg disorders (20 sources)Gastroesophageal reflux disease; Translations: [Gastro-esophageal reflux disease without esophagitis]Onset: 686648-28-6063YtvwozlBgoezpsrw hypertension (20 sources)Essential (primary) hypertension; Translations: [Essential hypertension]Onset: 266216-67-5300ZtrhemxVdrnx and electrolyte disorders (3 sources)Hypokalemia; Translations: [Hypokalemia]Onset: EpisodicGenitourinary symptoms and ill-defined conditions (1 source)Dysuria; Translations: [Dysuria]Onset: 88-15-4552PguwoaqePsnuaiim; including migraine (20 sources)Migraine; Translations: [Refractory migraine with aura]Onset: 749885-68-5113VxhgzpwCwablualuyyo injury (5 sources)Concussion injury of body structure; Translations: [Concussion]Onset: 946011-57-1710OlkjlfdePsthrwnvvlqli mental health disorders (20 sources)Psychophysiologic insomnia; Translations: [Psychophysiologic insomnia]Onset: 572637-22-8767QhsrnciXqwi disorders (20 sources)Major depressive disorder, single episode, unspecified; Translations: [Depressive disorder]Onset: 08-14-2010 Resolved: 836473-62-3109YhvtasmSauvsn and vomiting (4 sources)Nausea with vomiting, unspecified; Translations: [Vomiting]Onset: 590847-97-2293FikwllacPehlfnqwbymlgd (20 sources)Osteoarthritis of right knee joint; Translations: [Unilateral primary osteoarthritis, right knee]Onset: 338018-84-8957ZvocujqOvoxf and unspecified benign neoplasm (20 sources)Benign neoplasm of brain; 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, unspecified]Onset: 584665-15-4828YgbuhxeMimur connective tissue disease (12 sources)Spasm of cervical paraspinous muscle; Translations: [Other muscle spasm]Onset: 870257-36-3738JexwtxqrSavhr connective tissue disease (1 source)Myalgia, unspecified site; Translations: [Myalgia and myositis, unspecified]76-67-0383GsmwmwjjStawr gastrointestinal disorders (1 source)Diarrhea, unspecified; Translations: [Diarrhea, unspecified]Onset: 23-35-0284PguielzrOsfep gastrointestinal disorders (2 sources)Diarrhea; Translations: [Diarrhea, unspecified]34-23-0878Tsswaske Other hereditary and degenerative nervous system conditions (1 source)Restless legs syndrome; Translations: [RESTLESS LEGS SYNDROME]Onset: 47-52-4965ZishvqgLpxli hereditary and degenerative nervous system conditions (20 sources)Restless legs; Translations: [Restless legs syndrome]Onset: 801096-96-7063XpsjgpgSpehx injuries and conditions due to external causes (1 source)Unspecified injury of head, initial encounter; Translations: [Unspecified injury of head, initial encounter]Onset: 26-02-4987IaprotlsNutyo injuries and conditions due to external causes (1 source)Injury of headOnset: 95-83-7786JkcjfmliWktom lower respiratory disease (5 sources)Shortness of breath; Translations: [SHORTNESS OF BREATH]Onset: 82-75-5783UrjuzvddLtbci lower respiratory disease (6 sources)Dyspnea; Translations: [Shortness of breath]97-97-0391JkfgyrgbHfmmx nervous system disorders (20 sources)Carpal tunnel syndrome; Translations: [Carpal tunnel syndrome, unspecified upper limb]Onset: 685188-73-4909MzqnmbbFzlut nervous system disorders (20 sources)Chronic pain; Translations: [Other chronic pain]Onset: 02-03-2023 71-18-8138NreizhxXqgqh nervous system disorders (1 source)Chronic pain syndrome; Translations: [Chronic pain syndrome]10-02-2024 ChronicOther non-traumatic joint disorders (6 sources)Pain in right shoulder; Translations: [Pain in joint, shoulder region]09-35-6958LftdombaHdmop non-traumatic joint disorders (2 sources)Disorder of shoulder; Translations: [Other specified joint disorders, right shoulder]09-50-0699RkeftrnyMcqfu non-traumatic joint disorders (2 sources)Pain in left shoulder; Translations: [Pain in joint, shoulder region] 42-59-1085TulfubyjTyipk nutritional; endocrine; and metabolic disorders (1 source)Body mass index 30+ - okpwpuf64-78-5659IufakhzTdzav nutritional; endocrine; and metabolic disorders (1 source)Sjeyhgq60-34-4959XrqfciiZhlhd screening for suspected conditions (not mental disorders or infectious disease) (20 sources)Screening for malignant neoplasm of colon done; Translations: [Encounter for screening for malignant neoplasm of colon]Onset: 02-01-2024 EpisodicOther upper respiratory disease (20 sources)Chronic rhinitis; Translations: [Chronic rhinitis]Onset: 05-17-2024 46-47-0679BulxbcgYzvwt upper respiratory disease (20 sources)Nasal vestibulitis; Translations: [Other specified disorders of nose and nasal sinuses]Onset: 023182-96-9441JhtmpaquCbhco upper respiratory disease (1 source)Epistaxis; Translations: [Epistaxis]23-97-5043AwwkrdraCctzj upper respiratory infections (20 sources)Viral upper respiratory tract infection; Translations: [Acute upper respiratory infection, unspecified]Onset: 587678-13-6442UmuswhqaIvmbtlji codes; unclassified (20 sources)Obstructive sleep apnea syndrome; Translations: [Obstructive sleep apnea (adult) (pediatric)]Onset: 034383-66-5245UtmmoinKiljxjdb codes; unclassified (1 source)Family history of malignant neoplasm of digestive organ; Translations: [Family history of malignantneoplasm of digestive organs]Onset: 02-01-2024 EpisodicResidual codes; unclassified (1 source)Family history of cancer of qhaao39-37-4129VcvflhfkXbgukkrr codes; unclassified (1 source)Iansmnai18-49-4997OxjhbprhDsdtgpthyot; intervertebral disc disorders; other back problems (20 sources)Cervical spondylosis without myelopathy; Translations: [Spondylosis without myelopathy or radiculopathy, cervical region]Onset: ChronicSpondylosis; intervertebral disc disorders; other back problems (20 sources)Cervico-occipital neuralgia; Translations: [Occipital neuralgia] Onset: 295961-78-0543FsjqjceuHjeztcqoqwh injury; contusion (3 sources)Contusion of scalp, initial encounter; Translations: [Contusion of right foot]Onset: 805690-28-5996DauxdvnyAbpqtqi disorders (20 sources)Hypothyroidism, unspecified; Translations: [Hypothyroidism]Onset: 602098-94-3032AeciqfoMfmlhikakmnn (1 source)CONTACT W/AND (SUSP) EXPOS COVID-19; Translations: [CONTACT W/AND (SUSP) EXPOS COVID-19]Onset: 25-31-0556Mibuffxldcag (1 source)Patient encounter fhpozs31-36-3029Rwadqqaegdva (2 sources)Acute pain of right khqbnzyt99-00-3010Kzkbvaftfbjb (2 sources)Arthritis of right ifdwnbxt76-70-9567Tytppdukibdx (2 sources)Arthritis of left nlvymcrs37-72-3080Njxcvee tract infections (20 sources)Urinary tract infectious disease; Translations: [Urinary tract infection, site not specified]Onset: 797206-19-7547Ljbpdvbu Past or Other Problems Problem ClassificationProblemDateDocumented DateEpisodic/ChronicBacterial infection; unspecified site (20 sources)Methicillin resistant Staphylococcus aureus infection; Translations: [Methicillin resistant Staphylococcus aureus infection, unspecified site]Onset: 886119-16-0387PdqdgynbVtzglhwdva and other anemia (20 sources)Anemia; Translations: [Anemia, unspecified]Onset: 01-09-2025 98-85-9817HqnymztfOqjq disorders (8 sources)Mood disordersOnset: 638279-13-9244Fdhsjqfzp of unspecified nature or uncertain behavior (20 sources)Giant cell tumor of bone; Translations: [Neoplasm of uncertain behavior of bone and articular cartilage]Onset: 241757-40-7964Luybciay Other aftercare (1 source)Other rat exterminator (current) drug therapy; Translations: [OTH CUSTODIAL CURRENT DRUG THERAPY]Onset: 93-50-4165UrhrbaqcJcars connective tissue disease (20 sources)Neurological deficit; Translations: [Other symptoms and signs involving the nervous system]Onset: 259782-47-8071HxnnunrzVmaud skin disorders (3 sources)Localized swelling, mass and lump, head; Translations: [LOCALIZED SWELLING MASS AND LUMP HEAD]Onset: 51-37-9292ZubefievThsws upper respiratory disease (20 sources)Rhinitis; Translations: [Chronic rhinitis]Onset: 01-09-2025 Resolved: 759001-74-4946HgkmtwgMqalc upper respiratory disease (1 source)Abscess, furuncle and carbuncle of nose; Translations: [ABSCESS FURUNCLE AND CARBUNCLE NOSE]Onset: 47-03-3902PvfurtvxNjiesxsu codes; unclassified (20 sources)Family history of aneurysm of artery; Translations: [Family history of ischemic heart disease and other diseases of the circulatory system]Onset: 835841-46-2561ZkascnahFybferuk codes; unclassified (20 sources)Altered mental status; Translations: [Altered mental status, unspecified]Onset: 143534-94-3471MxtfwvquZocbsfre codes; unclassified (20 sources)Inadequate sleep hygiene; Translations: [Inadequate sleep hygiene] Onset: 546943-31-8734FnsxbdyxQehglgrzvqaa (1 source)Recurrent fxzfwfmoz02-56-2853Tifgpemibylo (8 sources)Onset: 691974-52-1744 Results Test NameValueInterpretationReference RangeFacilityBASIC METABOLIC PANELon 98-47-2862Bixjf gap [Moles/Vol]9 mmol/LNormal5-15[facility] Comment on above:Performed By: #### BMP #### [facility] [address] [place] [address] [place] [address] VIRCalcium [Mass/Vol]9.1 mg/dLNormal8.5-10.5ProMedWoodland Memorial HospitalComment on above:Performed By: #### BMP #### [facility] ([address] [place] [address] VIRChloride [Moles/Vol]114 mmol/RGtja69-558RvlYowehpHca [facility] Healthcare MainlandComment on above:Performed By: #### BMP #### [facility] ([address] [address] VIRCO2 [Moles/Vol]17 mmol/HYjd87-41QtlWbbotxUniversity Hospitals Parma [facility] Comment on above:Performed By: #### BMP #### [facility] ([address] [address] VIRCreatinine [Mass/Vol]0.82 mg/dLNormal0.40-1.00ProHca [facility] Healthcare MainlandComment on above:Result Comment: METHOD TRACEABLE TO IDMS STANDARDPerformed By: #### BMP #### [facility] ([address] [address] VIRGFR/1.73 sq M.predicted among non-blacks MDRD (S/P/Bld) [Vol rate/Area]81 mL/min/{1.73_m2}Normal>=60ProHca [facility] Healthcare MainlandComment on above:Result Comment: eGFR not reported due to non-numeric value for Creatinine. Reported eGFR is based on the CKD-EPI 2021 equation that does not use a race coefficient.Performed By: #### BMP #### [facility] ([address] [address] VIRGlucose [Mass/Vol]121 mg/mBLlim04-44PwzJubbxiHca Houston Healthcare MainlandComment on above:Performed By: #### BMP #### [facility] ([address] [address] VIRPotassium [Moles/Vol]3.0 mmol/LLow3.5-5.0ProHca [facility] Healthcare MainlandComment on above:Performed By: #### BMP #### [facility] ([address] [address] VIRSodium [Moles/Vol]140 mmol/WVhbnkr648-142BblEnsvjt [place] HospitalComment on above:Performed By: #### BMP #### [facility] ([facility]) [address] [place] [address] VIRUrea nitrogen [Mass/Vol]17 mg/dLNormal5-ProHca [facility] Healthcare MainlandComment on above:Performed By: #### BMP #### [facility] ([facility]) [address] [place] [address] VIRC DIFFICILE BY PCRon [id number] AVC2ViaimcogMbzrhy Presumptive NegativeWooster Community HospitalComment on above:Result Comment: Assay methodology is nucleic acid amplification by real-time PCR for detection of C. difficile toxin gene sequences performed on anydooR Instrument System.Performed By: #### CDFPCR #### [facility] ([facility]) [address] [place] [address] VIRTOXIGENIC C DIFFNegativeNormalNegativeWooster Community HospitalComment on above:Performed By: #### CDFPCR #### [facility] ([facility]) [address] [place] [address] VIRCBC WITH AUTO DIFFERENTIALon 31-70-2568IKZOSPVCI ABSOLUTE COUNT (10*3/UL) BY AUTOMATED COUNT0.0 10*3/uLNormal0.0-0.2ProMedica [facility] District HospitalComment on above:Performed By: #### CBCA #### [facility] ([facility]) [address] [place] [address] VIRBASOPHILS RELATIVE PERCENT BY AUTOMATED COUNT0.2 %Normal [facility] HospitalComment on above:Performed By: #### CBCA #### [facility] ([facility]) [address] [place] [address] VIRCELLAVISION DIFFERENTIAL TYPEAUTOMATED DIFFERENTIALNormal [facility] HospitalComment on above:Performed By: #### CBCA #### [facility] ([facility]) [address] [place] [address] VIREosinophils (Bld) [#/Vol]0.4 10*3/uLNormal0.0-0.4[facility] HospitalComment on above:Performed By: #### CBCA #### [facility] ([address] [place] [address] VIREOSINOPHILS RELATIVE PERCENT BY AUTOMATED COUNT4.0 %Normal [facility] HospitalComment on above:Performed By: #### CBCA #### [facility] ([address] [place] [address] VIRErythrocyte distribution width (RBC) [Ratio]13.1 %Normal 11.5-15[facility] HospitalComment on above:Performed By: #### CBCA #### [facility] ([address] [place] [address] VIRHematocrit (Bld) [Volume fraction]38.7 %Kykbjk33-61 [facility] HospitalComment on above:Performed By: #### CBCA #### [facility] ([address] [place] [address] VIRHemoglobin (Bld) [Mass/Vol]13.0 g/yQLszedh85.7-15.5 [facility] HospitalComment on above:Performed By: #### CBCA #### [facility] ([address] [place] [address] VIRLYMPHOCYTES ABSOLUTE COUNT (10*3/UL) BY AUTOMATED COUNT1.5 10*3/uLNormal1.0-3.5PUniversity Hospitals Parma Medical CenterComment on above:Performed By: #### CBCA #### [facility] ([address] [place] [address] VIRLYMPHOCYTES RELATIVE PERCENT BY AUTOMATED COUNT14.0 %Normal [facility] HospitalComment on above:Performed By: #### CBCA #### [facility] ([address] [place] [address] VIRMCH (RBC) [Entitic mass]31.3 xdQvqgve14-08PjoWsyoecHca Houston Healthcare MainlandComment on above:Performed By: #### CBCA #### [facility] ([address] [address] VIRMCHC (RBC) [Mass/Vol]33.7 g/fIQsjgdl57-55HznQahuuzHca Houston Healthcare MainlandComment on above:Performed By: #### CBCA #### [facility] ([address] [place] [address] VIRMCV (RBC) [Entitic vol]93 qIFjdqxx85-962RbaQkfhep [facility] HospitalComment on above:Performed By: #### CBCA #### [facility] ([address] [place] [address] VIRMONOCYTES ABSOLUTE COUNT (10*3/UL) BY AUTOMATED COUNT0.8 10*3/uLNormal0.0-0.9[facility] HospitalComment on above:Performed By: #### CBCA #### [facility] ([facility]) [address] [place] [address] [place] [address] VIRMONOCYTES RELATIVE PERCENT BY AUTOMATED COUNT7.2 %Normal [facility] HospitalComformerly [facility] on above:Performed By: #### CBCA #### [facility] ([address] [place] [address] VIRNEUTROPHILS ABSOLUTE COUNT BY AUTOMATED COUNT7.9 10*3/uL High1.5-6.6ProHca [facility] Healthcare MainlandComment on above:Performed By: #### CBCA #### [facility] ([address] [place] [address] VIRNEUTROPHILS RELATIVE PERCENT BY AUTOMATED COUNT74.6 %Normal [facility] HospitalComment on above:Performed By: #### CBCA #### [facility] ([facility]) [address] [place] [address] [place] [address] VIRPlatelet mean volume (Bld) [Entitic vol]7.1 fLNormal7-12 [facility] HospitalComment on above:Performed By: #### CBCA #### [facility] ([address] [place] [address] VIRPlatelets (Bld) [#/Vol]318 10*3/vWJigvjr601-070XmyYsumve [facility] HospitalComment on above:Performed By: #### CBCA #### [facility] ([address] [place] [address] VIRRBC COUNT4.17 X10E12/LNormal3.8-5.2ProMedica [facility] District HospitalComment on above:Performed By: #### CBCA #### [facility] ([address] [place] [address] VIRWBC (Bld) [#/Vol]10.6 10*3/uLNormal4-11[facility] HospitalComment on above:Performed By: #### CBCA #### [facility] ([facility]) [address] [place] [address] [place] [address] VIRER EXTRA URINE CULTUREon [id number] EXTRA URINE CULTURE ERXUC ER EXTRA URINE CULTURE [facility] Geneva Medical CenterComment on above:Order Comment: NO TUBEER EXTRA URINE MARBLEon [id number] EXTRA URINE MARBLEERXMAR ER EXTRA URINE MARBLE [facility]ancellBarnesville Hospital Comment on above:Order Comment: NO TUBEGI PANEL STOOL PATHOGEN PANELon 54-05-7757DDIQXLURNWKkt detectedNormalNot DetectedW[facility]oster [facility] Hospital Comment on above:Performed By: #### GIP #### [facility] ([facility]) [address] [place] [address] VIRAGGREGATIVE E COLINot detectedNormalNot DetectedProHca Houston Healthcare MainlandComment on above:Performed By: #### GIP #### [facility] ([facility]) [address] [place] [address] VIRASTROVIRUSNot detectedNormalNot DetectedProHca [facility] Healthcare MainlandComment on above:Performed By: #### GIP #### [facility] ([facility]) [address] [place] [address] VIRCAMPYLOBACTERNot detectedNormalNot DetectedProHca [facility] Healthcare MainlandComment on above:Performed By: #### GIP #### [facility] ([facility]) [address] [place] [address] VIRCRYPTOSPORIDIUMNot detectedNormalNot DetectedWooster Community HospitalComformerly [facility] on above:Performed By: #### GIP #### [facility] ([facility]) [address] [place] [address] VIRCYCLOSPORANot detectedNormalNot DetectedWooster Community HospitalComment on above:Performed By: #### GIP #### [facility] ([facility]) [address] [place] [address] VIRE HISTOLYTICANot detectedNormalNot DetectedWooster Community HospitalComformerly [facility] on above:Performed By: #### GIP #### [facility] ([facility]) [address] [place] [address] VIRGIARDIA LAMBLIANot detectedNormalNot DetectedProHca Houston Healthcare MainlandComment on above:Performed By: #### GIP #### [facility] ([facility]) [address] [place] [address] VIRNOROVIRUSNot detectedNormalNot DetectedWooster Community HospitalComformerly [facility] on above:Performed By: #### GIP #### [facility] ([facility]) [address] [place] [address] VIRPATHOGENIC E COLINot detectedNormalNot DetectedProHca Houston Healthcare MainlandComment on above:Performed By: #### GIP #### [facility] ([facility]) [address] [place] [address] VIRPLESIOMONASNot detectedNormalNot DetectedProKettering Health Behavioral Medical Center HospitalComment on above:Performed By: #### GIP #### [facility] ([facility]) [address] [place] [address] VIRROTAVIRUS ANot detectedNormalNot DetectedProKettering Health Behavioral Medical Center HospitalComment on above:Performed By: #### GIP #### [facility] ([facility]) [address] [place] [address] VIRSALMONELLANot detectedNormalNot DetectedProHca [facility] Healthcare MainlandComment on above:Performed By: #### GIP #### [facility] ([facility]) [address] [place] [address] VIRSAPOVIRUSNot detectedNormalNot DetectedProKettering Health Behavioral Medical Center HospitalComment on above:Performed By: #### GIP #### [facility] ([facility]) [address] [place] [address] VIRSHIGA TOXIN E COLINot detectedNormalNot DetectedProHca [facility] Healthcare MainlandComment on above:Performed By: #### GIP #### [facility] ([facility]) [address] [place] [address] VIRSHIGELLA-E COLINot detectedNormalNot DetectedProKettering Health Behavioral Medical Center HospitalComment on above:Performed By: #### GIP #### [facility] LABORATORY ([facility]) [address] [place] [address] VIRTOXIGENIC E COLINot detectedNormalNot DetectedProKettering Health Behavioral Medical Center HospitalComment on above:Performed By: #### GIP #### [facility] ([facility]) [address] [place] [address] VIRVIBRIONot detectedNormalNot DetectedProKettering Health Behavioral Medical Center HospitalComment on above:Performed By: #### GIP #### [facility] LAB[facility]ATORY ([facility]) [address] [place] [address] VIRVIBRIO CHOLERAENot detectedNormalNot DetectedProHca Houston Healthcare MainlandComment on above:Performed By: #### GIP #### [facility] LABORATORY ([facility]) [address] [place] [address] SAMY. ENTEROCOLITICANot detectedNormalNot DetectedProHca Houston Healthcare MainlandComment on above:Performed By: #### GIP #### [facility] LABORATORY ([facility]) [address] [place] [address] VIRLIPASEon 62-80-6823Ikxmhe [Catalytic activity/Vol]37 U/L Wgcpzo46-54XwhSwetyyHca Houston Healthcare MainlandComment on above:Performed By: #### LIPA #### [facility] ([address] [place] [address] VIRLIVER PANELon 92-34-5491Tqrzvzx [Mass/Vol]4.5 g/dLNormal 3.2-5.3PUniversity Hospitals Parma Medical CenterComment on above:Performed By: #### LIVR #### [facility] ([address] [place] [address] VIRALP [Catalytic activity/Vol]54 U/TKeosbn19-925EgoKrxmjxHca Houston Healthcare MainlandComment on above:Performed By: #### LIVR #### [facility] ([address] [place] [address] VIRALT [Catalytic activity/Vol]17 U/LNormal<=31ProMedWoodland Memorial HospitalComment on above:Performed By: #### LIVR #### [facility] ([address] [place] [address] VIRAST [Catalytic activity/Vol]21 U/LNormal<=41ProHca Houston Healthcare MainlandComment on above:Performed By: #### LIVR #### [facility] ([address] [place] [address] VIRBilirubin [Mass/Vol]0.4 mg/dLNormal0.3-1.2ProMedWoodland Memorial HospitalComment on above:Performed By: #### LIVR #### [facility] ([address] [place] [address] VIRBilirubin.indirect [Mass/Vol]0.1 mg/dLNormal<=0.4ProHca Houston Healthcare MainlandComment on above:Performed By: #### LIVR #### [facility] ([address] [place] [address] VIRProtein [Mass/Vol]7.7 g/dLNormal6.0-8.0ProHca Houston Healthcare MainlandComment on above:Performed By: #### LIVR #### [facility] ([address] [place] [address] VIRPOCT NURSING URINE MACROSCOPIC UAon 99-14-8730UVJUOZOOL ZACHARY NegativeNormalNegativeWooster Community HospitalComment on above:Performed By: #### NUM #### [facility] ([address] [place] [address] VIRBLOOD/HGB NURNegativeNormalNegativeWooster Community HospitalComment on above:Performed By: #### NUM #### [facility] ([address] [place] [address] VIRGLUCOSE NURNegativeNormalNegativeWooster Community Hospital Comment on above:Performed By: #### NUM #### [facility] ([address] [address] VIRKETONES NURNegativeNocape fear valley bladen county hospitalNegativeWooster Community Hospital Comment on above:Performed By: #### NUM #### [facility] ([address] [place] [address] VIRLEUKOCYTE ESTERASE NURTraceAbnormalNegativeWooster Community HospitalComment on above:Performed By: #### NUM #### [facility] ([address] [address] VIRNITRITE NURNegativeNocape fear valley bladen county hospitalNegSt. Anthony's Hospital Comment on above:Performed By: #### NUM #### [facility] ([address] [place] [address] VIRPH NUR6.4Hasrie3.0, 6.0, 6.5, 7.0, 7.5, 8.0, 8.5, 5.5 Wooster Community HospitalComment on above:Performed By: #### NUM #### [address] [address] VIRPROTEIN NURTraceAbnormalNegativeWooster Community Hospital Comment on above:Performed By: #### NUM #### [facility] ([address] [address] VIRSPECIFIC GRAVITY ZACHARY>=1.082Fokgfajx6.010, 1.015, 1.020, 1.025Wooster Community HospitalComment on above:Performed By: #### NUM #### [address] [address] VIRUROBILINOGEN NUR0.2 E.U./dLNormAkron Children's Hospital Comment on above:Performed By: #### NUM #### [address] [address] VIRCT BRAIN WO CONTon [id number] BRAIN WO CONTCT BRAIN WO CONT Exam: CT brain without contrast. CLINICAL HISTORY: [...] by Mor Correia MD on 06/19/2025 12:22 PMNMedina Hospital Panel Informationon 41-91-8796VldkevdNELSON Bonilla 06/05/2025 9:35 AM L Inj/Asp: L glenohumeral on 06/05/2025 9:25 AM Indications: pain Details: 22 G needle, ultrasound-guided posterior approach Medications: 2 mL bupivacaine PF 0.5 %; 40 mg methylPREDNISolone acetate 40 MG/ML Outcome: tolerated well, no immediate complications The shoulder was prepped with isopropyl alcohol. Allowed time to fully dry. Under ultrasound guidance the glenohumeral joint was identified. A plain was established to avoid any neurovascular structures or lung, a 21 G needle was placed into the joint under ultrasound guidance and image captured to patients chart demonstrating proper placement in glenohumeral joint. I then injected 40 mg depomedrol and 2 ml of 0.5% bupivacaine Pt tolerated this well and neurovascular intact s/p injection. . ( Codes 60336) Procedure, treatment alternatives, risks and benefits explained, specific risks discussed. Consent was given by the patient. Patient was prepped and draped in the usual sterile fashion. [facility] CenterXR Shoulder - left 2 Viewson 41-45-9275Aemnjmi Result: Left Shoulder AP and Scap Y No acute fracture or dislocation Bone Structures clavicle and scapula and humeral head appear normal alignment Glenohumeral joint space narrowed with subchondral sclerosis and spurring to humeral head. Suspect calcific tendonitis cuff insertion Moderate degenerative changes of ac joint Soft tissues and limited visualized lung cisneros unremarkable Impression: left shoulder arthritis with calcific tendonitis. [facility] CenterRadiology Study observation (narrative)[facility] Panel Informationon 08-37-8289ThdehqyNELSON Bonilla 05/22/2025 9:22 AM L Inj/Asp: R glenohumeral on 05/22/2025 9:11 AM Indications: pain and diagnostic evaluation Details: 21 G needle, ultrasound-guided posterior approach Medications: 2 mL bupivacaine PF 0.5 %; 40 mg methylPREDNISolone Acetate 20 MG/ML The shoulder was prepped with isopropyl alcohol. Allowed time to fully dry. Under ultrasound guidance the glenohumeral joint was identified. A plain was established to avoid any neurovascular structures or lung, a 21 G needle was placed into the joint under ultrasound guidance and image captured to patients chart demonstrating proper placement in glenohumeral joint. I then injected 40 mg depomedrol and 2 ml of 0.5% bupivacaine Pt tolerated this well and neurovascular intact s/p injection. . ( Codes 09407-EL) Procedure, treatment alternatives, risks and benefits explained, specific risks discussed. Consent was given by the patient. Patient was prepped and draped in the usual sterile fashion. [facility] CenterXR Shoulder - right 2 Viewson [id number] Result: AP and Scapy Y right shoulder No acute fracture or dislocation + Subchondral cystic changes to glenoid and inferior daly spurring to humeral head. AC joint appears bone to bone with spurring Impression: Moderate arthritis to AC joint and right glenohumeral joint.[facility] CenterRadiology Study observation (narrative)[facility] XR CERVICAL SPINE COMPLETE 4-5 VIEWSon 16-29-3493YD CERVICAL SPINE COMPLETE 4-5 VIEWSExam: XR CERVICAL SPINE COMPLETE 4-5 VIEWS Clinical History: Neck pain radiating down right hand after a fall two months ago Reference Exam: No comparison FINDINGS: The cervical vertebral elements are of appropriate height, contour, and alignment. The disc spaces are fairly well-maintained. No fractures or subluxations. The atlantoaxial relationships appear within the limits of normal. The visualized lung apices are clear. Oblique views document no significant neuroforaminal encroachment. The patient is generally edentulous. Impression: Negative routine radiographic assessment of the cervical spine. Dictated on: 10/12/2024 3:55 PM This report has been electronically signed and approved by the interpreting Radiologist.NormalNot AvailableXR chest 2V*on 32-41-7411GB chest 2V*[facility] [place] [address] XRay Report Signed Patient: Autumn Brandt MR#: [id number] : 1965 Acct:[id number] Age/Sex: 58 / F ADM Date: 09/13/24 Loc: XDUCLY Room: Type: [facility] Attending Dr: Sonia Miller APRN Copies to: Sonia Miller APRN Ordering Provider: Sonia Miller APRN Date of Service: 09/13/24 XR/XR chest 2V*: R06.02 - Shortness of breath XR chest 2V* 09/13/2024 6:00 PM SIGNS AND SYMPTOMS: Productive cough, shortness of breath, congestion PROTOCOL: Frontal and lateral radiograph of the chest COMPARISON: None FINDINGS: The trachea is midline. The heart and mediastinal structures are within normal limits. The lung parenchyma is clear. The bony thorax is intact. There is a dextro convex curvature of the thoracic spine. Degenerative changes are noted in the thoracic spine and shoulders. XR/XR chest 2V* IMPRESSION: No acute cardiopulmonary pathology. Impression dictated by: Quinten Campa M.D.09/13/2024 6:18 PM Dictation Location: [place] [address] Transcribed By: [facility] 09/13/241817 Dictated By: Quinten Campa II, MD 09/13/241816 Signed By: 09/13/241817[facility] Physician GroupFLAGET MEMORIAL [facility]ITAL W Auto Differential panel (Bld)on 78-79-4474Nblpfcqav (Bld) [#/Vol]72 10*3/uLNOMS HealthcareBasophils/100 WBC (Bld)1.3 %NOMS HealthcareEosinophils (Bld) [#/Vol]220 10*3/uLNOMS Healthcare Eosinophils/100 WBC (Bld)4 %NOMS HealthcareErythrocyte distribution width (RBC) [Ratio]12 %11.0 - 15.0 %[facility]OMS HealthcareHematocrit (Bld) [Volume fraction]33.4 % Low35.0 - 45.0 %[facility]OM[facility] HealthcareHemoglobin (Bld) [Mass/Vol]10.8 g/dLLow11.7 - 15.5 g/dLNOMS HealthcareLymphocytes (Bld) [#/Vol]1408 10*3/uLNOMS Healthcare Lymphocytes/100 WBC (Bld)25.6 %[facility] & Sports MedicineMCH (RBC) [Entitic mass]31.5 pg 27.0 - 33.0 pgFreeman Orthopaedics & Sports MedicineMCHC (RBC) [Mass/Vol]32.3 g/dL32.0 - 36.0 g/dLNOWY HealthcareComment on above:For adults, a slight decrease in the calculated MCHC value (in the range of 30 to 32 g/dL) is most likely not clinically significant; however, it should be interpreted with caution in correlation with other red cell parameters and the patient's clinical condition. MCV (RBC) [Entitic vol]97.4 fL80.0 - 100.0 fLUINTAH BASIN [facility]ICAL [facility]ENTER HealthcareMonocytes (Bld) [#/Vol]369 10*3/uLU[facility] HealthcareMonocytes/100 WBC (Bld)6.7 %[facility] Neutrophils (Bld) [#/Vol]3432 10*3/uLNOWY HealthcareNeutrophils/100 WBC (Bld) 62.4 %[facility] HealthcarePlatelet mean volume (Bld) [Entitic vol]9.2 fL7.5 - 12.5 fL [facility] HealthcarePlatelets (Bld) [#/Vol]289 10*3/uLNOWY HealthcareRBC (Bld) [#/Vol]3.43 10*6/uLLowNOWY HealthcareWBC (Bld) [#/Vol]5.5 10*3/uLNOWY Healthcare Laboratory - Chemistry and Chemistry - challengeon 06-97-6380Cbozdsb [Mass/Vol] 4.4 g/dL3.6 - 5.1 g/dLNOWY HealthcareAlbumin/Globulin [Mass ratio]2 {ratio}[facility] HealthcareALP [Catalytic activity/Vol]56 U/L37 - 153 U/LNOMS HealthcareALT [Catalytic activity/Vol]12 U/L6 - 29 U/LNOMS HealthcareAST [Catalytic activity/Vol]17 U/L10 - 35 U/LNOMS HealthcareBilirubin [Mass/Vol]0.3 mg/dL0.2 - 1.2 mg/dLNOWY HealthcareCalcium [Mass/Vol]9.1 mg/dL8.6 - 10.4 mg/dLNOWY HealthcareChloride [Moles/Vol]112 mmol/LHigh98 - 110 mmol/LNOMS HealthcareCO2 [Moles/Vol]25 mmol/L20 - 32 mmol/LNOMS HealthcareCreatinine [Mass/Vol]0.63 mg/dL 0.50 - 1.05 mg/dLNOWY HealthcareFree T4 [Mass/Vol]0.9 ng/dL0.8 - 1.8 ng/dLNOWY HealthcareGFR/1.73 sq M.predicted among non-blacks MDRD (S/P/Bld) [Vol rate/Area]101 mL/min/{1.73_m2}> OR = 60 mL/min/1.68i8RFXG HealthcareGlobulin (S) [Mass/Vol]2.2 g/dLNOWY HealthcareGlucose [Mass/Vol]88 mg/dL65 - 99 mg/dLNOWY HealthcareComment on above: Fasting reference interval Potassium [Moles/Vol]4.1 mmol/L3.5 - 5.3 mmol/LNOMS HealthcareProtein [Mass/Vol] 6.6 g/dL6.1 - 8.1 g/dLNOWY HealthcareSodium [Moles/Vol]142 mmol/L135 - 146 mmol/LNOMS HealthcareTSH Qn0.02 m[IU]/LLowNOMS HealthcareUrea nitrogen [Mass/Vol]19 mg/dL7 - 25 mg/dLNOWY HealthcareUrea nitrogen/Creatinine [Mass ratio]SEE NOTE:[facility] HealthcareComment on above:Not Reported: BUN and Creatinine are within reference range. Lipid 1996 panelon 29-53-8570Opvncbsshyq [Mass/Vol]174 mg/dLNINF - 200 mg/dLNOWY HealthcareCholesterol in HDL [Mass/Vol]56 mg/dL> OR = 50NOCooper County Memorial Hospital Cholesterol in LDL [Mass/Vol]97 mg/dLmg/dL (calc)[facility] HealthcareComment on above:Reference range: <100 Desirable range <100 mg/dL for primary prevention; <70 mg/dL for patients with CHD or diabetic patients with > or = 2 CHD risk factors. LDL-C is now calculated using the Virgen calculation, which is a validated novel method providing better accuracy than the Friedewald equation in the estimation of LDL-C. Adis CABEZAS et al. DEIDRE. 2013;310(19): 1835-9318 (http://education.arcbazar.com.ACS Clothing/faq/KHT984) Cholesterol non HDL [Mass/Vol]118 mg/dLFort Sanders Regional Medical Center, [place], operated by Covenant HealthComment on above:For patients with diabetes plus 1 major ASCVD risk factor, treating to a non-HDL-C goal of <100 mg/dL (LDL-C of <70 mg/dL) is considered a therapeutic option. Cholesterol.total/Cholesterol in HDL [Mass ratio]3.1 {ratio}[facility] [place] Triglyceride [Mass/Vol]117 mg/dLNI - 150 mg/dLFreeman Orthopaedics & Sports MedicineNo Panel Informationon 20-14-9675Nlyjhuxgrzxuch and review of laboratory resultsAbnormal [facility] Sports MedicineFASTING:YES FASTING: YESQUESTPerforming Organization Information Site ID: QPT Name: [facility] Address: [address] [place] [address], [address] [place] [id number] Director: Jeferson Clark MDFrye Regional Medical CenterLaboratory - Chemistry and Chemistry - challengeon 05-17-3191Wkvtouvli Ql (U)[facility] HospitalGlucose (U) [Mass/Vol]NegativeOhio Valley Surgical Hospital Ketones Ql (U)[facility] HospitalpH (U)7.0 [pH][facility] Hospitalpecific gravity (U) [Rel density]1.015Ohio Valley Surgical HospitalUrobilinogen (U) [Mass/Vol]0.2 mg/dLOhio Valley Surgical HospitalLaboratory - Specimen informationon 42-00-0826Dopokxhdla (U)cloudy [facility] HospitalColor (U)paleyellowOhio Valley Surgical HospitalLaboratory - Urinalysison 05-93-2461Ybtgkyeqx esterase Test strip Ql (U) traceOhio Valley Surgical HospitalNitrite Ql (U)[facility] HospitalProtein Ql (U)NegativeOhio Valley Surgical HospitalNo Panel Informationon 84-60-1079Ghflu Occult Bloodtrace-lysedOhio Valley Surgical HospitalUrine Cultureon 46-73-5828Fubnhevz identified Cx Nom (U)<10,000 colonies/ml mixed bacterial skin contaminants including mixed gram negative bacilli - 2 Days PERFORMED BY: [place] [address] [place] [address] PATHOLOGIST SENIOR SALES CONSULTANT VENANCIO FU M.D.[facility] Physician GroupComment on above:Performed By: #### CUU #### [facility] [address] StreetUrine cultureOrdered By: Sonia Miller on 40-55-5271Hcianabt identified Cx Nom (U)Urine cultureOhio Valley Surgical HospitalCB W Auto Differential panel (Bld)on 43-74-6058WSEEDYUE BASOPHIL0.1NOMS HealthcareComment on above:PERFORMED AT [facility] [address],[place] [address] The copy-to physician of this order is SHIRA Burrows ; , ; Basophils/100 WBC (Bld)1.3 %NOMS HealthcareEosinophils (Bld) [#/Vol]0.2 10*3/uL [facility]OMS HealthcareEosinophils/100 WBC (Bld)3.7 %NOMS HealthcareErythrocyte distribution width (RBC) [Ratio]13.2 %11.5 - 15.0 %[facility]OMS HealthcareHematocrit (Bld) [Volume fraction]34.4 %Low35 - 47 %NOMS HealthcareHemoglobin (Bld) [Mass/Vol]11.9 g/dL11.7 - 15.5 g/dLNOWY HealthcareInterpretation and review of laboratory resultsAbnormalNOWY HealthcareLymphocytes (Bld) [#/Vol]1.5 10*3/uL NOMS HealthcareLymphocytes/100 WBC (Bld)26.8 %NOMS HealthcareMCH (RBC) [Entitic mass]32.4 pg27 - 34 pgNOWY HealthcareMCHC (RBC) [Mass/Vol]34.6 g/dL32 - 36 g/dL NOMS HealthcareMCV (RBC) [Entitic vol]94 fL80 - 100 fLNOWY HealthcareMonocytes (Bld) [#/Vol]0.4 10*3/uLNOMS HealthcareMonocytes/100 WBC (Bld)7.0 %NOMS HealthcareNeutrophils (Bld) [#/Vol]3.3 10*3/uLNOMS HealthcareNeutrophils/100 WBC (Bld)61.2 %NOMS HealthcarePlatelet mean volume (Bld) [Entitic vol]7.9 fL7 - 12 [facility] HealthcarePlatelets (Bld) [#/Vol]271 10*3/[facility] HealthcareRBC (Bld) [#/Vol]3.68 10*6/uLMercy Health Clermont Hospital HealthcareWBC corrected for nucl RBC Auto (Bld) [#/Vol]5.5NOMS [facility] HealthcareOutside Colonoscopyon 07-08-8445Kasqeyl [id number]#1.00TIFOhioHealth Mansfield HospitalReminderson 92-65-6475Zcxxlkmnm From: Rosaline Elam LPN To: N - Clinical; Sent: 03/30/2024 13:07:22 EDT Show up: 02/26/2034 07:00:00 EDT Subject: colonoscopy recall Due Date/Time: 03/29/2034 07:00:00 EDT Reminder/Recall Patient due for screening colonoscopy 03/29/2034.[facility] HospitalInsurance Correspondenceon [id number] Correspondence [id number]#1.00[facility] Orthopedic CenterConsent for Procedure/Surgeryon 94-09-4323Wktcwew for Procedure/Surgery [id number]#1.00[facility] Orthopedic CenterFacesheeton 55-99-5296Pnbtdgtdi [id number]#1.00[facility] Orthopedic CenterAmbulatory Visit Summaryon 53-10-2069Vdyoppsemt Visit Summary AUTUMN BRANDT :1965 Visit Date:02/01/2024 Ambulatory Visit Instructions Your Diagnosis Screening for malignant neoplasm of colon Family history of colon cancer in father Your Care Team Attending Physician - MOUNA BENITEZ, Jaswant Erazo Primary Care Physician - MADELAINE SCHMIDT, MIKE Referring Physician - MIKE BURKETT CNP This [...] Colonoscopy, Excision of calcaneal spur, Excision of tumorof brain meninges, Tubal ligation, VH - Vaginal [...] Tablets By Mouth 2 times a day Contactprescribing physician if questions or concerns Unchanged erenumab (Aimovig SureClick 70 mg/ mL subcutaneous solution) 70 Milligram Subcutaneous Once a month Contact prescribing physician if questions or concerns Unchanged glucosamine (glucosamine 750 mg oral tablet) See instructions as directed Contact prescribing physician if questions or concerns Unchanged levothyroxine (levothyroxine 112 mcg (0.112 mg) Tab) 1 Tablets By Mouth Every day Contactprescribing physician if questions or concerns Unchanged meloxicam [...] 1 Capsules By Mouth Every day Contact prescribingphysician if questions or concerns Unchanged verapamil (verapamil [...] you for choosing us for your care. [facility] HospitalProvider Letteron 12-24-2023 Provider Letter December 24, 2023 AUTUMN BRANDT [address] [place] [address] : 1965 Dear Ms. Brandt, We have [...] your prompt attention to this matter. Sincerely, [facility] [place] [facility] Surgery [phone] Health MiamisburgPhysician Referralon 12-07-2023 Physician [id number]#1.00TIFOhioHealth Mansfield HospitalPhysician Referralon 83-84-8372Heuwjccde Referral [id number]#1.00[facility] Orthopedic CenterCUURE ABSCESSon 88-50-1062QCRTBFQ ABSCESSIsolate 1 Staphylococcus aureus Moderate growth of ORGANISM 1 Staphylococcus aureus ANTIBIOTIC M.I.C RX STATUS Beta-Lactamase Neg NEG F Cefoxitin Screen Neg NEG F Benzylpenicillin 0.12 S F Gentamicin <=0.5 S F Ciprofloxacin <=0.5 S F Levofloxacin <=0.12 S F Moxifloxacin <=0.25 S F Inducible Clindamycin Resistance Neg NEG F Erythromycin <=0.25 S F Clindamycin <=0.25 S F Quinupristin/Dalfopristin <=0.25 S F Linezolid 2 S F Vancomycin 1 S F Tetracycline <=1 S F Rifampicin <=0.5 S F Trimethoprim/Sulfamethoxazole <=10 S F Oxacillin 0.[address] [facility] Boardman HospitalComment on above:Performed By: #### ABCESCX #### [facility] [address] [place] [address] Dr. Augustin Mckeond-19 PCR (CVDTB)on 86-05-2982WYCZ-CoV-2 (COVID-19) RNA DAI+probe Ql (Unsp spec)Not detectedNormalNOT DETECTEDSumma Health Akron Campus Comment on above:Result Comment: This test is not yet approved or cleared by the [place] FDA. When there are no FDA-approved or cleared tests available, and other criteria are met, FDA can make tests available under an emergency access mechanism called an Emergency Use Authorization (EUA). The EUA for this test is supported by the [place] of Health and Human Service's (HHS's) declaration that circumstances exist to justify the emergency use of in vitro diagnostics for the detection and/or diagnosis of the virus that causes COVID- 19. This EUA will remain in effect (meaning [...] of clinical signs and symptoms consistent with SARS-CoV-2.Performed By: #### CVDTBH #### [facility] [address] [place] [address] [address] Augustin Adams Vital Signs Date TimeVital SignValuePerforming FqcsrbjdlNwyltxgm75-76-9725 09:43-0500Body pikrcx738.1 cmBrittany Sanchez DIRECTOR [facility] Work Phone: [phone]11-05-2025 09:43-0500 Body mass index (BMI) [Ratio]25.8 kg/j4Vsuahqrc Sanchez [facility] Work Phone: [phone]11-05-2025 09:43-0500 Body pyvfwgwzjug87.9 [degF]Daniel Sanchez [facility] Work Phone: [phone] [place], [place] [address]111-05-2025 09:43-0500 Body vsrciv34.47 kgBrittany Sanchez [facility] Work Phone: [phone] [place], [place] [address]111-05-2025 09:43-0500 Diastolic blood wqjbodbc26 mm[Hg]Daniel Sanchez [facility] Work Phone: 1([phone])[address] [place], [place] [address]111-05-2025 09:43-0500 Heart rate58 /minBrittany Sanchez [facility] Work Phone: [phone]11-05-2025 09:43-0500 Respiratory rate13 /minBrittany Sanchez [facility] Work Phone: [phone] [place], [place] [address]111-05-2025 09:43-0500 SaO2% (BldA) [Mass fraction]98 %Daniel Sanchez [facility] Work Phone: [phone]11-05-2025 09:43-0500 Systolic blood jjvoyulq13 mm[Hg]Daniel Sanchez [facility] Work Phone: [phone]10-08-2025 14:43-0400 Body .1 cmBrittany Sanchez [facility] Work Phone: [phone]10-08-2025 14:43-0400 Body mass index (BMI) [Ratio]25.7 kg/g0Uejyjnet Sanchez [facility] Work Phone: [phone]10-08-2025 14:43-0400 Body bgvsgpfqbjo42.1 [degF]Daniel Sanchez [facility] Work Phone: [phone]10-08-2025 14:43-0400 Body vkroqt47.08 kgBrittany Sanchez [facility] Work Phone: [phone]10-08-2025 14:43-0400 Diastolic blood wdygblwq01 mm[Hg]Daniel Sanchez [facility] Work Phone: [phone] [place], [place] [address]110-08-2025 14:43-0400 Heart rate72 /minBrittany Sanchez [facility] Work Phone: [phone])[address]10-08-2025 14:43-0400 Respiratory rate16 /minBrittany Sanchez [facility] Work Phone: [phone]10-08-2025 14:43-0400 SaO2% (BldA) [Mass fraction]97 %Daniel Sanchez [facility] Work Phone: [phone]10-08-2025 14:43-0400 Systolic blood ryquvoyg513 mm[Hg]Daniel Sanchez [facility] Work Phone: [phone]09-17-2025 08:31-0400 Body xerhhr897.1 cmBrittany Sanchez DIRECTOR STATE PHARM[facility] Work Phone: [phone] [place], [place] 7565109-17-2025 08:31-0400 Body mass index (BMI) [Ratio]26.2 kg/y7Tfxfmoox Sanchez DIRECTOR [facility] Work Phone: [phone])[phone] [place], [place] 3394709-17-2025 08:31-0400 Body thddwyvwonp07.8 [degF]Daniel Sanchez DIRECTOR [facility] Work Phone: [phone]09-17-2025 08:31-0400 Body krqzaq16.32 kgJanieittany Sanchez DIRECTOR [facility] Work Phone: [phone]09-17-2025 08:31-0400 Diastolic blood mm[Hg]Dainel Sanchez DIRECTOR [facility] Work Phone: [phone])[address]09-17-2025 08:31-0400 Heart rate90 /minBrittany Sanchez DIRECTOR [facility] Work Phone: [phone]09-17-2025 08:31-0400 Respiratory rate18 /minBrittany Sanchez DIRECTOR [facility] Work Phone: [phone] [place], [place] 3394709-17-2025 08:31-0400 SaO2% (BldA) [Mass fraction]97 %Daniel Sanchez DIRECTOR [facility] Work Phone: [phone]09-17-2025 08:31-0400 Systolic blood zriyoqmj635 mm[Hg]Daniel Sanchez DIRECTOR [facility] Work Phone: [phone])842-[address] [place], [place] 3394708-19-2025 11:11-0400 Body pamyek215.1 cmQuinten Figueroa MD Work Phone: [phone] MedicineRvilvuoxfw48-08-0749 11:11-0400Body mass index (BMI) [Ratio]25.63 kg/m2Quinten Figueroa MD Work Phone: [facility] MedicineMjtzgnqnen72-42-6181 11:11-0400Body ikuwsv37.85 kgQuinten Figueroa MD Work Phone: [phone])816-[facility] MedicineXszeybcdat62-34-6410 09:11-0400Body mass index (BMI) [Ratio]27.09 kg/m2Jacque Daniel DIRECTOR [facility] PHARMACY Work Phone: [facility] MedicineJcrpdjxseh16-33-4289 09:11-0400Body temperature 98.49 [degF]Jacque Daniel DIRECTOR [facility] PHARMAC[facility] Work Phone: [facility] MedicineXysenvjggo60-95-3770 09:11-0400Body cowfkl79.85 kgJacque Daniel DIRECTOR [facility] PHARMACY Work Phone: [facility] MedicineWnskvghwpe62-59-1477 09:11-0400Diastolic blood gifzjcwq97 mm[Hg]Jacque Daniel DIRECTOR STATE PHARMACY Work Phone: [facility] MedicineLuajdnsxcy13-08-6414 09:11-0400Heart rate80 /min Jacque Daniel DIRECTOR [facility] PHARMACY Work Phone: [facility] MedicineEwotpjskqm53-34-2917 09:11-0400Respiratory rate18 /minJacque Daniel DIRECTOR [facility] PHARMACY Work Phone: [facility] MedicineYgvtpvdans03-29-4549 09:11-2264ImI7% (BldA) [Mass fraction]99 %Jacque Daniel DIRECTOR [facility]ARM[facility] Work Phone: [facility] MedicineUzoptsvlzh27-69-8595 09:11-0400Systolic blood plmqwzyv831 mm[Hg]Jacque Daniel DIRECTOR [facility] PHARMAC[facility] Work Phone: [facility] MedicineYbvwmjtdyp10-44-3004 08:38-0400Body mass index (BMI) [Ratio]27.29 kg/f9Dcsddbacammy DAMON Work Phone: [facility]05-01-2025 08:38-0400Body .39 kgMattcammy DAMON Work Phone: [facility]05-01-2025 08:38-0400Diastolic blood mm[Hg]Krista Diehl PA Work Phone: [facility]05-01-2025 08:38-0400Heart rate 96 /minMattcammy DAMON Work Phone: [facility]05-01-2025 08:38-0400 Respiratory rate14 /minMatthew Jamey DAMON Work Phone: [facility]05-01-2025 08:38-5198NwT3% (BldA) [Mass fraction]100 %Krista DAMON Work Phone: [facility]05-01-2025 08:38-0400Systolic blood nnzclunu976 mm[Hg]Krista DAMON Work Phone: [facility]04-29-2025 11:37-0400Body mass index (BMI) [Ratio]27.09 kg/m2Lisa Roberthholz DIRECTOR STATE PHARMACY Work Phone: [facility] MedicineSvvrkncenq87-24-0896 11:37-0400Body temperature 97.5 [degF]Jacque Roberthdarz DIRECTOR STATE PHARMACY Work Phone: [facility] MedicineTyheggtghx51-29-8014 11:37-0400Body zifyky86.85 kgLisa Roberthholz DIRECTOR STATE PHARMACY Work Phone: [facility] MedicineXmflbhabmj50-59-8172 11:37-0400Diastolic blood pmgqsutl13 mm[Hg]Jacque Aichholz DIRECTOR STATE PHARMACY Work Phone: [facility] MedicineCwuuuhsqin42-62-7909 11:37-0400Heart rate92 /min Jacque Aichholz DIRECTOR STATE PHARMACY Work Phone: [facility] MedicineXryryvpvnt77-31-3260 11:37-0400Respiratory rate18 /minLisa Aichholz DIRECTOR STATE PHARMACY Work Phone: [place] [address]Apdxsxanyw86-62-2389 11:37-7189OlL3% (BldA) [Mass fraction]98 %Jacque Aichholz DIRECTOR STATE PHARMACY Work Phone: [facility] MedicineFlrtbthdeo05-74-5803 11:37-0400Systolic blood vapnxfqu646 mm[Hg]Jacque Aichholz DIRECTOR [facility] PHARMACY Work Phone: [place] [address]Gjgtayvipv31-61-2175 10:16-0400Body isdczx085.1 cmFemata Goode DIRECTOR STATE PHARMACY Work Phone: [facility] MedicineJckakoybxo83-28-5246 10:16-0400Body mass index (BMI) [Ratio]24.96 kg/j6RgftfixBravo Goode DIRECTOR STATE PHARMACY Work Phone: [facility] MedicinePsyrsrrsah42-47-0639 10:16-0400Body ixqjhz47.04 kgFemata Goode DIRECTOR STATE PHARMACY Work Phone: [facility] MedicineScaxenvkjh50-42-6898 10:16-0400Diastolic blood syfcijxd98 mm[Hg]Bravo Goode DIRECTOR STATE PHARMACY Work Phone: [facility] MedicineRrjapoevou32-71-2652 10:16-0400Systolic blood umqaklyv060 mm[Hg]Bravo Goode DIRECTOR STATE PHARMACY Work Phone: [facility] MedicineRqcfqnjidi70-19-1265 09:55-0400Body mass index (BMI) [Ratio]27.16 kg/m2Jacque Roberttiesharobbie DIRECTOR STATE PHARMACY Work Phone: [facility] MedicineZzrrfajbqf31-00-4357 09:55-0400Body temperature 97.81 [degF]Jacque María DIRECTOR [facility] PHARMACY Work Phone: [facility] MedicineTyvexgqwpz36-99-8670 09:55-0400Body .03 kgJacque María DIRECTOR STATE PHARMAC[facility] Work Phone: [facility] MedicineTkwofylfga17-68-3883 09:55-0400Diastolic blood ecenscfa29 mm[Hg]Jacque María DIRECTOR [facility] PHARM[facility] Work Phone: [facility] MedicineQxksmfehtv07-21-5806 09:55-0400Heart rate84 /min Jacque Ericz DIRECTOR STATE PHARMACY Work Phone: [place] [address]Aiyxchkisg56-96-5283 09:55-0400Respiratory rate18 /minLisa María DIRECTOR STATE PHARMACY Work Phone: [facility] MedicineNclbyxgsye33-96-7400 09:55-8691YgP1% (BldA) [Mass fraction]98 %Jacque María DIRECTOR [facility] PHARMACY Work Phone: [facility] MedicineVnwoprpfee30-80-9514 09:55-0400Systolic blood psqbilga755 mm[Hg]Jacque Daniel DIRECTOR [facility] PHARMACY Work Phone: [facility] MedicineHrvogrxpvg27-88-3489 09:25-0400Body ituoqm016.1 cmMattcammy Diehl PA Work Phone: [phone]03-25-2025 09:25-0400Body mass index (BMI) [Ratio]27.46 kg/r8Ycjoeafcammy Diehl PA Work Phone: 1(684)039-54[facility]03-25-2025 09:25-0400Body bjzuap17.84 kgMattparagw Jamey PA Work Phone: 1([phone])188-17[facility]03-25-2025 09:25-0400Diastolic blood mm[Hg]Krista Diehl PA Work Phone: 1(011)633-42[facility]03-25-2025 09:25-0400Heart rate 88 /minMattcammy Diehl PA Work Phone: 1(136)354-47[facility]03-25-2025 09:25-7441BuF4% (BldA) [Mass fraction]100 %Krista Diehl PA Work Phone: 1([phone]03-25-2025 09:25-0400Systolic blood neprvwom959 mm[Hg]Krista Diehl PA Work Phone: 1(083)656-57[facility]02-18-2025 07:53-0500Diastolic blood olehcmvc78 mm[Hg]Denise Diehl WAREHOUSE SUPERVISOR-SHEEP FARM MANAGER Work Phone: [phone]02-18-2025 07:53-0500Heart rate 81 /minSamannan Aggarwalenberg WAREHOUSE SUPERVISOR-SHEEP FARM MANAGER Work Phone: [phone]02-18-2025 07:53-0500 Respiratory rate18 /minSamantiffanya Alessiaenberg WAREHOUSE SUPERVISOR-SHEEP FARM MANAGER Work Phone: [phone]02-18-2025 07:53-9001FnZ7% (BldA) [Mass fraction]100 %Denise Diehl WAREHOUSE SUPERVISOR-SHEEP FARM MANAGER Work Phone: [facility]02-18-2025 07:53-0500Systolic blood mm[Hg]Denise Diehl WAREHOUSE SUPERVISOR-SHEEP FARM MANAGER Work Phone: [facility]01-28-2025 10:52-0500Body nduciy365.1 cmQuinten Figueroa MD Work Phone: [facility] MedicineApzqvdhbbd45-33-9569 10:52-0500Body mass index (BMI) [Ratio]24.96 kg/m2Quinten Figueroa MD Work Phone: [facility] MedicineBgoxldnypi10-44-1530 10:52-0500Body dzynsp86.04 kgQuinten Figueroa MD Work Phone: [facility] MedicineCkaiynppvm86-41-6410 10:52-0500Diastolic blood nyocunpa58 mm[Hg]Quinten Figueroa MD Work Phone: [facility] MedicineLkpprxxcdi47-93-3972 10:52-0500Heart rate74 /min Quinten Figueroa MD Work Phone: [facility] MedicineCsxjxcktqj24-20-4638 10:52-0500Systolic blood vournjfg823 mm[Hg]Quinten Figueroa MD Work Phone: [facility] MedicineYyxoinvpxx80-78-3339 13:44-0500Body ohvbvt739.1 cmPHYSICIAN [facility]01-16-2025 13:44-0500Body mass index (BMI) [Ratio]27.1 kg/q1TGONBHZLZ [facility]01-16-2025 13:44-0500Body htuhqc93.93 kgPHYSICIAN [facility]01-15-2025 08:00-0500Body xydyzq686.1 cmDaniel Sanchez NP Work Phone: [facility] MedicineUluvosgrqd94-84-0240 08:00-0500Body mass index (BMI) [Ratio]23.9 kg/l3UxtjpntuDaniel Francozpatrick DIRECTOR STATE PHARMACY Work Phone: [facility] MedicineQilehooovg60-26-6201 08:00-0500Body temperature 97.9 [degF]Daniel Villarealtrick DIRECTOR STATE PHARMACY Work Phone: [facility] MedicineCvthnuqkah43-95-5138 08:00-0500Body juzlhz18.14 kgDaniel Villarealtrick DIRECTOR STATE PHARM[facility]Y Work Phone: [phone] [place], [place] [address]Xnacpalmzc18-23-7806 08:00-0500Diastolic blood atherunk25 mm[Hg]Daniel Villarealtrick DIRECTOR STATE PHARMACY Work Phone: [phone] MedicineRyrivphdke61-04-2508 08:00-0500Heart rate96 /min Daniel Villarealtrick DIRECTOR [facility] PHARMAC[facility] Work Phone: [facility] MedicineDdaknkzywx49-10-4527 08:00-0500Respiratory rate16 /minDaniel Villarealtrick DIRECTOR STATE PHARMAC[facility] Work Phone: [facility] MedicineZwjiujhxed41-38-2119 08:00-3240OpH0% (BldA) [Mass fraction]99 %Daniel Villarealtrick DIRECTOR [facility] PHARMAC[facility] Work Phone: [facility] MedicinePmobkiltyb01-34-2319 08:00-0500Systolic blood wujcmgph040 mm[Hg]Daniel Villarealtrick DIRECTOR STATE PHARMAC[facility] Work Phone: [facility] MedicineIgrpeatpmc95-36-5923 17:30-0500Body .1 cmPHYSICIAN [facility]12-04-2024 17:30-0500Body mass index (BMI) [Ratio]26.9 kg/i4AASHWFAPB [facility]12-04-2024 17:30-0500Body cfasfcgovkp82.7 [degF]PHYSICIAN [facility]12-04-2024 17:30-0500Body rimfdj40.48 kg PHYSICIAN [facility]12-04-2024 17:30-0500 Diastolic blood gyvrtmda88 mm[Hg]PHYSICIAN [facility]12-04-2024 17:30-0500Heart rate85 /minPHYSICIAN [facility]12-04-2024 17:30-0500Respiratory rate18 /minPHYSICIAN [facility]12-04-2024 17:30-0713AlT4% (BldA) [Mass fraction]98 %PHYSICIAN [facility]12-04-2024 17:30-0500Systolic blood vtkhlodg426 mm[Hg]PHYSICIAN NO [facility]11-05-2024 08:26-0500Body vzfold292.1 cmSchasity Diehl WAREHOUSE SUPERVISOR-SHEEP FARM MANAGER Work Phone: [facility]11-05-2024 08:26-0500Body mass index (BMI) [Ratio]27.52 kg/s9Jypkziea Nienberg WAREHOUSE SUPERVISOR-SHEEP FARM MANAGER Work Phone: [facility]11-05-2024 08:26-0500Body .03 kgSamargaret Aggarwalenberg WAREHOUSE SUPERVISOR-SHEEP FARM MANAGER Work Phone: [facility]11-05-2024 08:26-0500Diastolic blood tubivhfa98 mm[Hg]Denise Aggarwalenberg WAREHOUSE SUPERVISOR-SHEEP FARM MANAGER Work Phone: [facility]11-05-2024 08:26-0500Heart rate 72 /minSamannan Aggarwalenberg WAREHOUSE SUPERVISOR-SHEEP FARM MANAGER Work Phone: [facility]11-05-2024 08:26-0500 Respiratory rate18 /minSchasity Aggarwalenberg WAREHOUSE SUPERVISOR-SHEEP FARM MANAGER Work Phone: [facility]11-05-2024 08:26-3056PjU7% (BldA) [Mass fraction]99 %Denise Aggarwalenberg WAREHOUSE SUPERVISOR-SHEEP FARM MANAGER Work Phone: [facility]11-05-2024 08:26-0500Systolic blood tylizboh829 mm[Hg]Denise Diehl WAREHOUSE SUPERVISOR-SHEEP FARM MANAGER Work Phone: [facility]11-04-2024 16:04-0500Body kzvgea102.1 Yesi Sanchez DIRECTOR STATE PHARMAC[facility] Work Phone: [facility] MedicineEwgjxqsqlm75-06-1627 16:04-0500Body mass index (BMI) [Ratio]25.86 kg/l9KcyvcqmnDaniel Villarealtrick DIRECTOR STATE PHARMAC[facility] Work Phone: [facility] MedicineRqxrcoretu92-14-1585 16:04-0500Body temperature 96.1 [degF]Daniel Villarealtrick DIRECTOR STATE PHARMACY Work Phone: [facility] MedicineCoaydtxtzg06-18-9056 16:04-0500Body .49 kgDaniel Villarealtrick DIRECTOR STATE PHARMAC[facility] Work Phone: [facility] MedicineAwulrdmgzo58-93-1957 16:04-0500Diastolic blood hbrnfciy38 mm[Hg]Daniel Villarealtrick DIRECTOR STATE PHARMAC[facility] Work Phone: [facility] MedicineJvisayqgmm00-67-9833 16:04-0500Heart rate62 /min Daniel Villarealtrick DIRECTOR STATE PHARMACY Work Phone: [place] [address]Wkafdvinfg60-53-8961 16:04-0500Respiratory rate16 /minDaniel Villarealtrick DIRECTOR STATE PHARMACY Work Phone: [facility] MedicinePweibmsyaf21-44-7558 16:04-4067MyV7% (BldA) [Mass fraction]96 %Daniel Villarealtrick DIRECTOR STATE PHARMACY Work Phone: [facility] MedicineYpjiejfllw25-71-6810 16:04-0500Systolic blood tmlqquzi281 mm[Hg]Daniel Villarealtrick DIRECTOR STATE PHARMACY Work Phone: 1([phone])248-[address] [place], [place] [address]Asraumbikb89-65-5003 14:38-0400Body beifdr538.1 [facility] 14:38-0400Body mass index (BMI) [Ratio]27.5 kg/o5UgbkhuzntOhio Valley Surgical Hospital10-23-2024 14:38-0400Body fowbtodgiyv90.1 [degF][facility]10-23-2024 14:38-0400Body .98 kgOhio [facility]10-23-2024 14:38-0400Diastolic blood pkiyvqva22 mm[Hg][facility]10-23-2024 14:38-0400 Heart rate87 /[facility]10-23-2024 14:38-0400 Respiratory rate18 /[facility]10-23-2024 14:38-0400 SaO2% (BldA) [Mass fraction]99 %[facility]10-23-2024 14:38-0400Systolic blood ikknlncx346 mm[Hg][facility] 07-17-2024 14:31-0400Body mass index (BMI) [Ratio]27.62 kg/a1Jkvxlpntheriberto Alfredok DIRECTOR STATE PHARMACY Work Phone: [facility] MedicineGrqkonvryd93-91-0523 14:31-0400Body temperature 98.01 [degF]Daniel Villarealtrick DIRECTOR STATE PHARMAC[facility] Work Phone: [facility] MedicineUlynkurcwa70-27-6789 14:31-0400Body wkuqjf91.3 kg Daniel Villarealtrick DIRECTOR STATE PHARMACY Work Phone: [facility] MedicineFuaaoduouk39-02-9757 14:31-0400Diastolic blood xhqyyymd14 mm[Hg]Daniel Sanchez DIRECTOR STATE PHARMACY Work Phone: [facility] MedicineJkdudwjvzj99-41-8755 14:31-0400Heart rate75 /min Daniel Carrasquillopatrick DIRECTOR STATE PHARMAC[facility] Work Phone: [facility] MedicineXbeggqzsbv42-89-5378 14:31-5533GuM2% (BldA) [Mass fraction]99 %Daniel Sanchez DIRECTOR [facility] PHARMAC[facility] Work Phone: [facility] MedicineJwlqaoxasz50-23-8163 14:31-0400Systolic blood mm[Hg]Daniel Sanchez DIRECTOR [facility] PHARMAC[facility] Work Phone: [facility] MedicineNvrwwxeqxk34-65-3358 14:06-0400Body .1 Golddenisjuan Jamey HAIRN-SHEEP FARM MANAGER Work Phone: [facility]09-17-2024 14:06-0400Body mass index (BMI) [Ratio]28.62 kg/z5Vlxecevbmargaret Diehl APRN-SHEEP FARM MANAGER Work Phone: [facility]09-17-2024 14:06-0400Body kevufr83.02 kgSamargaret Diehl APRN-SHEEP FARM MANAGER Work Phone: [facility]09-17-2024 14:06-0400Diastolic blood ysjlqldl08 mm[Hg]Denise Diehl APRN-SHEEP FARM MANAGER Work Phone: [facility]09-17-2024 14:06-0400Heart rate 80 /Robert Diehl APRN-SHEEP FARM MANAGER Work Phone: [phone]09-17-2024 14:06-0400 Respiratory rate18 /Robert Diehl APRN-SHEEP FARM MANAGER Work Phone: [facility]09-17-2024 14:06-6647TaR7% (BldA) [Mass fraction]100 %Denise Diehl APRN-SHEEP FARM MANAGER Work Phone: [facility]09-17-2024 14:06-0400Systolic blood nkjmyjvt396 mm[Hg]Denise Diehl APRN-SHEEP FARM MANAGER Work Phone: [facility]08-27-2024 12:26-0400Body yufzsp218.1 cmQuinten Figueroa MD Work Phone: [facility] MedicineVydqrzisdq40-88-2926 12:26-0400Body mass index (BMI) [Ratio]28.29 kg/m2Quinten Figueroa MD Work Phone: [facility] MedicinePmfemriuhp66-90-0883 12:26-0400Body ipviom45.11 kgQuinten Figueroa MD Work Phone: 1(487)230-[address] [place], [place] [address]Ycwsauqlkn82-75-8720 08:49-0400Body .1 cmSchasity Diehl APRN-SHEEP FARM MANAGER Work Phone: [facility]08-13-2024 08:49-0400Body mass index (BMI) [Ratio]28.62 kg/d0Ppciowqs Nienberg WAREHOUSE SUPERVISOR-SHEEP FARM MANAGER Work Phone: [facility]08-13-2024 08:49-0400Body sglesa35.02 kgSamargaret Diehl APRN-SHEEP FARM MANAGER Work Phone: [facility]08-13-2024 08:49-0400Diastolic blood qvkfawik81 mm[Hg]Denise Diehl APRN-SHEEP FARM MANAGER Work Phone: [facility]08-13-2024 08:49-0400Heart rate 74 /minSchasity Diehl WAREHOUSE SUPERVISOR-SHEEP FARM MANAGER Work Phone: [facility]08-13-2024 08:49-0400 Respiratory rate20 /minSchasity Diehl WAREHOUSE SUPERVISOR-SHEEP FARM MANAGER Work Phone: [facility]08-13-2024 08:49-1498JrX1% (BldA) [Mass fraction]100 %Denise Diehl APRN-SHEEP FARM MANAGER Work Phone: [facility]08-13-2024 08:49-0400Systolic blood xspdynmk300 mm[Hg]Denise Diehl APRN-SHEEP FARM MANAGER Work Phone: [facility]04-23-2024 13:35-0400Blood Pressure LocationMichael NILL [phone]-QjpfdClermont [facility]04-23-2024 13:35-0400Diastolic blood fjsuqppt94 mm[Hg]Jaswant NILL [phone]-JmvqaClermont County Hospital04-23-2024 13:35-0400Heart rate70 /minMichael NILL [phone]-OoyjzClermont County Hospital04-23-2024 13:35-0400Respiratory rate16 /minMichael NILL [phone]-UcfasClermont County Hospital04-23-2024 13:35-0400Systolic blood nxjakpab165 mm[Hg]Jaswant NILL [phone]-Phhfg General Surgery Inna Encounters Encounter DateEncounter TypeCare ProviderFacilityStart: 08-15-2025 End: 46-79-5000xfypkisjjiNpyapmfs N Sanchez DIRECTOR STATE PHARMAC[facility]-C Work Phone: -[facility] ClydeStart: 08-15-2025 End: 87-39-6137Rzezwdy encounter procedureLi Grace María DIRECTOR [facility] PHARMACY-[facility]emi Work Phone: Start: 08-05-2025 End: 91-97-2523Qotmdlijz department patient visitLI Grace VogelSt. Vincent Hospitalca [facility] Centertart: 07-18-2025 End: 29-72-2159suzmlswtniSgiiubro N Sanchez DIRECTOR [facility] PHARMAC[facility]-C Work Phone: [facility] Work Phone: Start: 07-18-2025 End: 37-17-8886Tzvcxyf encounter procedureLisa Grace Daniel DIRECTOR [facility] PHARMAC[facility] Work Phone: Start: 07-10-2025 End: 73-33-4633AwspkfHoofBipin CORTEZ [facility] 111Comment on above: Insomnia, psychophysiologicalStart: 06-27-2025 End: 00-23-1817lcpkrjzdrnFlereuzt N Sanchez DIRECTOR STATE PHARMAC[facility]-C Work Phone: [facility] Work Phone: Start: 06-27-2025 End: 50-20-6315Tdrilxp encounter procedureLisa Grace Daniel DIRECTOR [facility] PHARMACY-[facility] Work Phone: Start: 06-26-2025 End: 46-19-6567Ijcqkk Jeffry Figueroa MD Work Phone: [facility] NEUROLOGYStart: 06-26-2025 End: 51-32-7445Fpjniw Jeffry Figueroa MD Work Phone: noMS NEUROLOGYStart: 06-26-2025 End: 76-28-3692Futtdnuk SupportQuinten Figueroa MD Work Phone: [facility] NeurologyComment on above: Trigger point (Primary Dx)Start: 06-26-2025 End: 81-82-5900nyyrxkzgukDQSD D BEJNot AvailableStart: 06-19-2025 End: 45-80-1672Ygxvmfemj department patient visitLISA [facility] CenterMed[facility] HospitalStart: 06-05-2025 End: 60-31-0106Buhsia flowsYoselin DAMON Work Phone: [facility] OrthopaedicsStart: 06-05-2025 End: 62-58-0506Xrrozz Mindy DAMON Work Phone: [facility] OrthopaedicsStart: 06-05-2025 End: 84-80-4597Cuocdu outpatient visit 15 minutesKrista DAMON Work Phone: NO[facility] OrthopaedicsComment on above:Acute pain of left shoulder (Primary Dx); Arthritis of left shoulderStart: 06-05-2025 End: 12-24-0909GnkyptPive D Bej MD Work Phone: NOformerly [facility] 111Comment on above:Insomnia, psychophysiological; Migraine with aura, intractable, with status migrainosusStart: 05-29-2025 End: 22-46-1569Xlhmkh flowsNavneet Figueroa MD Work Phone: noMS NEUROLOGYStart: 05-29-2025 End: 71-93-2786Hogxch flowsNavneet Figueroa MD Work Phone: noMS NEUROLOGYStart: 05-29-2025 End: 31-81-8240Xsmyboaea encounterQuinten Figueroa MD Work Phone: noformerly [facility] 111Start: 05-29-2025 End: 92-43-8841Goyowr outpatient visit 25 minutesMark D Bej MD Work Phone: [facility] NeurologyComment on above: Trigger point of neck (Primary Dx); RICHA (obstructive sleep apnea); Migraine with aura, intractable, with status migrainosus ; Family history of cerebral aneurysm; Insomnia, psychophysiological; Cervical paraspinal muscle spasm; RLS (restless legs syndrome); Intractable migraine with status migrainosus, unspecified migraine typeStart: 05-29-2025 End: 58-02-9880vpfermnkvuRMVY D BEJNot AvailableStart: 05-22-2025 End: 72-49-6792Mfbshx flowsYoselin DAMON Work Phone: [facility]opaedicsStart: 05-22-2025 End: 88-39-0253Bwygvd Mindy DAMON Work Phone: [facility]opaedicsStart: 05-22-2025 End: 14-54-5211Omkinw outpatient visit 15 minutesMaclari DAMON Work Phone: [facility] OrthopaedicsComment on above:Acute pain of right shoulder (Primary Dx); Arthritis of right shoulderStart: 05-22-2025 End: 13-41-7739uzbhknqfftELOUGLQ J MEYERNot AvailableStart: 05-08-2025 End: 88-60-4141VnnougRlxj Aichholz DIRECTOR STATE PHARMACY Work Phone: NOKQ [facility] FMComment on above:Gastroesophageal reflux disease, unspecified whether esophagitis presentStart: 05-07-2025 End: 39-03-4976Tygxzy flowsheetJacque Daniel [employer] Work Phone: [facility] FMStart: 05-07-2025 End: 53-74-2626Hgvmrb flowsheetJacque Daniel DIRECT[employer] [facility] [employer] Work Phone: [facility] FMStart: 05-07-2025 End: 13-60-2292hvshekgoklAPNM AICHHOLZNot AvailableStart: 05-07-2025 End: 49-79-0308Noetww outpatient visit 25 minutesLisa Nessdarz DIRECTOR [employer] Work Phone: [facility] FMComment on above:Moderate persistent asthma without complication (HCC) (Primary Dx); Hypothyroidism, unspecified type ; Major depressive disorder, recurrent episode, moderate (HCC); Wellness examination; Chronic rhinitis; Mixed hyperlipidemiaStart: 05-07-2025 End: 93-90-2844Vxnqbvr encounter statusLisa Arzolarobbie DIRECTOR [employer] Work Phone: [facility] HealthcareStart: 05-03-2025 End: 27-59-8574EtmdmdNavg Aichholz DIRECT[employer] Work Phone: [facility] FMComment on above:Cervical spondylosis without myelopathyStart: 04-24-2025 End: 84-54-9065Uhiojdqsk encounterQuinten Figueroa MD Work Phone: [facility] NEURO 111Comment on above:Insomnia, psychophysiologicalStart: 04-12-2025 End: 90-95-1860LidupaYykl Aichholz DIRECT[employer] Work Phone: [facility] FMComment on above:Chronic rhinitisStart: 04-08-2025 End: 08-53-5423JhgyiuDuhn Aichholz DIRECTOR STATE PHARMACY Work Phone: NOMS CWM FMComment on above:Cervical spondylosis without myelopathyStart: 02-16-2025 End: 29-95-1778DatwmfHqua Aichholz DIRECTOR STATE PHARMACY Work Phone: NOMS CWM FMComment on above:Major depressive disorder, recurrent episode, moderate (CMS/HCC)Start: 02-10-2025 End: 50-06-4138AqrkqsOrfo Aichholz DIRECTOR STATE PHARMACY Work Phone: NOMS CWM FMComment on above:Cervical spondylosis without myelopathy (Primary Dx)Start: 02-08-2025 End: 28-41-4104dzafhorisbGRNZBREFloating Hospital for Childrentart: 02-08-2025 End: 40-91-8165Znxghc outpatient visit 15 minutesKrista Brandin Jamey DAMON Work Phone: [facility] ClinicComment on above:Cervical spondylosis without myelopathy (Primary Dx) Start: 02-06-2025 End: 26-88-1606Ymdtps flowsheetLisa Aichholz DIRECTOR STATE PHARMACY Work Phone: N[facility]S CWM FMStart: 02-06-2025 End: 33-04-0330Ycxosu flowsheetLisa Aichholz DIRECTOR STATE PHARMACY Work Phone: N[facility]S CWM FMStart: 02-06-2025 End: 23-68-0471Hkryba outpatient visit 15 minutesLisa Aichholz DIRECTOR STATE PHARMACY Work Phone: N[facility]S CWM FMComment on above:Acute non-recurrent pansinusitis (Primary Dx); Chronic rhinitisStart: 02-06-2025 End: 83-00-7366vdgpypfojeXMPQ AICHHOLZNot AvailableStart: 01-17-2025 End: 82-03-1888LkswftRhfm Aichholz DIRECTOR STATE PHARMACY Work Phone: NOQA CWM FMStart: 01-16-2025 End: 86-28-0753zfeofxvtyzPJGSZEW C WINDNAGELNot AvailableStart: 01-16-2025 End: 79-03-0902Svligi outpatient visit 25 minutesFelicia C Windnagel DIRECTOR STATE PHARMACY Work Phone: noms SWS NEUR BComment on above:RICHA (obstructive sleep apnea) (Primary Dx); Migraine with aura, intractable, with status migrainosus (CMS/HCC); RLS (restless legs syndrome); Poor sleep hygiene; Family history of cerebral aneurysm; Insomnia, psychophysiological; Cervical spondylosis without myelopathyStart: 01-12-2025 End: 70-18-2756ruzpinghchPMPVNTF E HOGANProKettering Health [facility] HospitalStart: 01-09-2025 End: 08-01-8607Wrmnry flowsheetLisa Aichholz DIRECTOR STATE PHARMACY Work Phone: N[facility]S CWM FMStart: 01-09-2025 End: 57-56-9138Cvlcph flowsDulce Daniel DIRECTOR STATE PHARMACY Work Phone: noms CWM FMStart: 01-09-2025 End: 85-45-9760phvobbunscTJCL AICHHOLZNjosey AvailableStart: 01-09-2025 End: 73-32-8536Cpstss outpatient visit 25 minutesJacque Daniel DIRECTOR STATE PHARMACY Work Phone: noms CW FMComment on above:Gastroesophageal reflux disease, unspecified whether esophagitis present (Primary Dx); Unspecified convulsions (CMS/HCC); RICHA (obstructive sleep apnea); Insomnia, psychophysiological; Mild intermittent asthma without complication (CMS/HCC); Primary hypertension (CMS/HCC); Hypothyroidism, unspecified type (CMS/HCC); Anxiety; Mild episode of recurrent major depressive disorder (HCC) (CMS/HCC); Major depressive disorder, recurrent episode, moderate (CMS/HCC); Mixed hyperlipidemia (CMS/HCC); Anemia due to other cause, not classified; Cervical spondylosis without myelopathy; Wellness examination; Intervertebral disc stenosis of neural canal of cervical region; Chronic rhinitisStart: 01-09-2025 End: 40-40-8635Eozubjd encounter statusJacque Daniel DIRECTOR STATE PHARMACY Work Phone: noms HealthcareStart: 01-02-2025 End: 34-06-5790hatktepjusELXFMEA S NIENBERGSumma Health [facility] HospitalStart: 01-02-2025 End: 68-89-3320Vudxpm outpatient visit 25 minutesMount Vernon Hospitalcammy DAMON Work Phone: [facility] ClinicComment on above:Intervertebral disc stenosis of neural canal of cervical region (Primary Dx)Start: 12-13-2024 End: 32-00-6440Vyybld Mindy DAMON Work Phone: noms B[facility] ORTHOPAEDICSStart: 12-13-2024 End: 66-88-8684Femhjp Mindy DAMON Work Phone: noms FB ORTHOPAEDICSStart: 12-13-2024 End: 64-61-7889uthddvujazFFPYPTI J MEYERNot AvailableStart: 12-13-2024 End: 34-43-6431Qruems outpatient visit 10 minutesKrista DAMON Work Phone: noms FB ORTHOPAEDICSComment on above:Acute pain of right shoulder (Primary Dx); Neck pain on right side; Arthritis of right shoulder regionStart: 12-06-2024 End: 14-38-5551NqodmkBldk D Bej MD Work Phone: NOHS SWS NEUR BComment on above:Insomnia, psychophysiological; Migraine with aura, intractable, with status migrainosus (CMS/HCC)Start: 11-28-2024 End: 87-73-3460Mmmypu outpatient visit 15 minutesmargaret Danyelle Jamey WAREHOUSE SUPERVISOR-SHEEP FARM MANAGER Work Phone: [facility] ClinicComment on above:Cervical spondylosis without myelopathy (Primary Dx) Start: 11-28-2024 End: 30-46-7844hwecmioffeUFIYHIFTSonora Regional Medical Centertart: 11-21-2024 End: 95-22-8651Oudkkeblt encounterErna CORTEZ [facility] NEURO 111Start: 11-17-2024 End: 95-84-3384YzxlafHiwznoru Fitzpatrick NP Work Phone: noms CWM FMComment on above:Cervical spondylosis without myelopathy; Major depressive disorder, recurrent episode, moderate (CMS/HCC); Chronic rhinitisStart: 11-07-2024 End: 82-55-4139Ogwenj Jeffry Figueroa MD Work Phone: noms BM NEUROLOGYStart: 11-07-2024 End: 60-25-7615Xvvsbwamalia Figueroa MD Work Phone: noms BM NEUROLOGYStart: 11-07-2024 End: 98-70-8071xnrpofglvwMAOS D BEJNot AvailableStart: 11-07-2024 End: 37-34-8364Lyprls outpatient visit 25 minutesQuinten Figueroa MD Work Phone: noms SWS NEUR BComment on above:RICHA (obstructive sleep apnea) (Primary Dx); Migraine with aura, intractable, with status migrainosus (CMS/HCC); RLS (restless legs syndrome); Poor sleep hygiene; Family history of cerebral aneurysm; Insomnia, psychophysiologicalStart: 11-03-2024 End: 46-93-4712Bcehme flowsYoselin DAMON Work Phone: noms FB ORTHOPAEDICSStart: 11-03-2024 End: 23-99-1044Pteoza flowsYoselin DAMON Work Phone: noms FB ORTHOPAEDICSStart: 11-03-2024 End: 36-10-3351rgjfdnnccrDPNUCHS J MEYERNot AvailableStart: 11-03-2024 End: 38-35-4072Kzroqe outpatient visit 25 minutesMattcammy DAMON Work Phone: noms FB ORTHOPAEDICSComment on above:Acute pain of right shoulder (Primary Dx); Arthritis of right shoulder region; Arthritis of right acromioclavicular joint; Impingement of right shoulderStart: 11-02-2024 End: 93-23-4119Jxkqzk OnlyDaniel Villarealtrick DIRECTOR STATE PHARMACY Work Phone: noms CWM FMComment on above:Recurrent epistaxis (Primary Dx)Start: 11-01-2024 End: 44-18-4403Uozcom OnlyBrandreaany Sanchez DIRECTOR STATE PHARMACY Work Phone: NOFJ CWM FMStart: 10-27-2024 End: 29-71-4464Cvldssf encounter statusBrittany Sanchez DIRECTOR STATE PHARMACY Work Phone: noms HealthcareStart: 10-27-2024 End: 16-50-5618TbwxixLzmfngcj Sanchez DIRECTOR STATE PHARMACY Work Phone: noms CWM FMComment on above:Wellness examinationStart: 10-26-2024 End: 71-12-3415ybzimpboboTVFHLGBSN NO [facility] Work Phone: Start: 10-26-2024 End: 78-67-3041Xevgtnn encounter procedurePHYSICIAN NO [facility] Work Phone: start: 10-25-2024 End: 98-68-2679Ldprgj flowsheetBrittany Sanchez DIRECTOR STATE PHARMACY Work Phone: NOWS CWM FMStart: 10-25-2024 End: 60-79-7460Pueosp flowsheetBrittany Asnchez DIRECTOR STATE PHARMACY Work Phone: NOML CWM FMStart: 10-25-2024 End: 61-91-8879Mlyroe outpatient visit 15 minutesBritttracey FrancoSanchez DIRECTOR STATE PHARMACY Work Phone: noms CWM FMComment on above:Major depressive disorder, recurrent episode, moderate (CMS/HCC) (Primary Dx); Cervical spondylosis without myelopathy; Dyslipidemia (CMS/HCC); Primary hypertension (CMS/HCC)Start: 10-25-2024 End: 16-09-6624xaycafyfgaVBJZYJRV FITZPATRICKNot AvailableStart: 10-20-2024 End: 09-53-6201pkldgotyhkCVHKUSX E HOGANProMedica Kaweah Delta Medical Centertart: 10-12-2024 End: 46-44-4272unghxmgxdgZKVVLXO C WINDNAGELNot AvailableStart: 10-10-2024 End: 87-02-8737Epaiqu flowsheetFelicia C Windnagel DIRECTOR STATE PHARMACY Work Phone: noms NEUROLOGYStart: 10-10-2024 End: 04-20-2737Mdoggo flowsheetFelicia C Windnagel DIRECTOR STATE PHARMACY Work Phone: noms BM NEUROLOGYStart: 10-10-2024 End: 05-80-6780frrxetlhovRXTYCLC C WINDNAGELNot AvailableStart: 10-10-2024 End: 27-84-0586Jikyag outpatient visit 25 minutesFelicia C Windnagel DIRECTOR STATE PHARMACY Work Phone: noms SWS NEUR BComment on above:Migraine with aura, intractable, with status migrainosus (CMS/HCC) (Primary Dx); Insomnia, psychophysiological; Poor sleep hygiene; RICHA (obstructive sleep apnea); Family history of cerebral aneurysm; RLS (restless legs syndrome); Degenerative disc disease, cervicalStart: 10-06-2024 End: 99-72-3939DgbqwfGnvxmini Fitzpatrick DIRECTOR STATE PHARMACY Work Phone: NOJB CWM FMComment on above:Gastroesophageal reflux disease, unspecified whether esophagitis presentStart: 10-02-2024 End: 71-31-0514KoqvvpYtgn Naderer MD Work Phone: noms CWM FMComment on above:Chronic pain syndrome (Primary Dx)Start: 09-28-2024 End: 84-29-0632RwmjjoTrtrDali CORTEZ CWM FMComment on above:Cervical spondylosis without myelopathyStart: 09-26-2024 End: 17-07-8936wnhvdifkvqCMZTWZYFAthol Hospitaltart: 09-25-2024 End: 38-29-7954PlczxkKwykKateryna CORTEZ CWM FMComment on above:Cervical spondylosis without myelopathyChronic rhinitis (Primary Dx)Start: 09-20-2024 End: 98-12-7166Adhzojueo Thanh Bello MD Work Phone: noms FNR FMStart: 09-18-2024 End: 88-98-8668Yrorbe flowsheetMaria B Apling DIRECTOR STATE PHARMACY Work Phone: noms CI ORTHOPAEDICSStart: 09-18-2024 End: 30-32-6390Rjnijv flowsheetMaria B Apling DIRECTOR STATE PHARMACY Work Phone: noms CI ORTHOPAEDICSStart: 09-18-2024 End: 26-47-1741Lapkzv outpatient new 20 minutesMaria B Apling DIRECTOR STATE PHARMACY Work Phone: noms CI ORTHOPAEDICSComment on above:Cervical pain (Primary Dx); Cervical arthritisStart: 09-18-2024 End: 61-13-8985rplbngzzvxUHGNB B APLINGNot AvailableStart: 09-13-2024 End: 64-41-2866Gjtebjv encounter procedurePHYSICIAN MADAY [facility] Work Phone: Start: 09-13-2024 End: 94-53-7370Unsygx flowsheetTammy Ty LSWNOMS FNR BHStart: 09-13-2024 End: 31-82-7980Zxdfdv flowsheetTammy Ty LSWNOMS FNR BHStart: 09-13-2024 End: 63-78-6566fkdpefrqqtVptyay M GrobFacility:[facility] Start: 09-11-2024 End: 46-19-5411YsholcAyicxlfuDaniele Sanchez DIRECTOR STATE PHARMACY Work Phone: noms CWM FMComment on above:Hypothyroidism, unspecified type (CMS/HCC)Start: 09-08-2024 End: 11-57-7574BwhowiOvwudgcaDaniele Sanchez DIRECTOR STATE PHARMACY Work Phone: noms CWM FMComment on above:Gastroesophageal reflux disease, unspecified whether esophagitis presentStart: 09-01-2024 End: 04-55-6388swzfksgoplHHTQYYH E HOGANRiverside Methodist Hospitalca [facility] Medical Centertart: 08-30-2024 End: 81-26-0431Fhsjlk flowsheetTammy Ty LSWNOMS FNR BHStart: 08-30-2024 End: 78-06-3065Hyzuya flowsheetTammy Ty LSWNOMS FNR BHStart: 08-30-2024 End: 82-79-2098mqnsifrmmzHTYTC HARDYNot AvailableStart: 08-18-2024 End: 29-33-3806JezhuxYesenia Sanchez DIRECTOR STATE PHARMACY Work Phone: noms CWM FMComment on above:Anemia, unspecified type (Primary Dx)Hypothyroidism, unspecified type (CMS/HCC) (Primary Dx)Start: 08-16-2024 End: 76-11-8584Gjfmbr flowsheetTammy Ty LSWNOMS FNR BHStart: 08-16-2024 End: 24-38-8815Nqfzmf flowsheetTammy Ty LSWNOMS FNR BHStart: 08-16-2024 End: 97-74-6358elvuwqpqrrDNWCQ HARDYNot AvailableStart: 08-15-2024 End: 43-54-1215Gjtjxl outpatient visit 25 minutesSamargaret Diehl WAREHOUSE SUPERVISOR-SHEEP FARM MANAGER Work Phone: [facility] ClinicComment on above:Cervical spondylosis without myelopathy (Primary Dx) Start: 08-15-2024 End: 53-56-5274idqmyqsznuNMHRGLXSSonora Regional Medical Centertart: 08-14-2024 End: 40-59-2232Dyzras outpatient visit 15 minutesBrheriberto FrancoSanchez DIRECTOR STATE PHARMACY Work Phone: noms CWM FMComment on above:Acute cystitis without hematuria (Primary Dx); Primary hypertension (CMS/HCC); Dyslipidemia (CMS/HCC); RICHA (obstructive sleep apnea); High cholesterol (CMS/HCC)Start: 08-14-2024 End: 91-46-3559xjazidmyftANHISAJO FITZPATRICKNot AvailableStart: 08-14-2024 End: 67-62-5922Fhpvft flowsheetBrittany Sanchez DIRECTOR STATE PHARMACY Work Phone: noMS CWM FMStart: 08-14-2024 End: 95-14-9773Mhonyl flowsheetBrittany Sanchez DIRECTOR STATE PHARMACY Work Phone: NOMS CWM FMStart: 08-09-2024 End: 55-70-6984Myxhqt flowsheetTammy Ty LSWNOMS FNR BHStart: 08-09-2024 End: 59-97-2516Snkbvl flowsheetTammy Ty LSWNOMS FNR BHStart: 08-09-2024 End: 50-14-1186kqrerprivzUCVBK HARDYNot AvailableStart: 08-04-2024 End: 07-42-9930Zpkauw flowsheetTammy Ty LSWNOMS FNR BHStart: 08-04-2024 End: 49-63-7305Unelwo flowsheetTammy Ty LSWNOMS FNR BHStart: 08-04-2024 End: 42-67-0750ypmiuebsweGCTML HARDYNot AvailableStart: 08-02-2024 End: 53-41-1374Ahehdljc ReferredMEGAN Miller Work Phone: [facility] [place] Work Phone: Start: 08-02-2024 End: 53-56-4650Rhmessd encounter procedureFormerly [facility] Work Phone: Start: 08-02-2024 End: 86-98-5553dfmxybzppnKpekjmdj Sanchez DIRECTOR STATE PHARMACY Work Phone: [facility] Work Phone: Comment on above:Gastroesophageal reflux disease, unspecified whether esophagitis present (Primary Dx)Start: 07-28-2024 End: 69-82-5471Xtvyko flowsheetTammy Ty LSWNOMS FNR BHStart: 07-28-2024 End: 47-80-1102Srvjsu flowsheetTammy Ty LSWNOMS FNR BHStart: 07-28-2024 End: 31-25-1460lxmzicqqldQHLCM HARDYNot AvailableStart: 07-24-2024 End: 42-19-3132Yfsleyqis encounterTammy Ty LSWNOMS FNR FMComment on above: counseling apptStart: 07-17-2024 End: 43-12-4311Oacaqn flowsheetBrittany Sanchez DIRECTOR STATE PHARMACY Work Phone: noms CWM FMStart: 07-17-2024 End: 40-32-9648Yufimt flowsheetBrittany Sanchez DIRECTOR STATE PHARMACY Work Phone: noms CWM FMStart: 07-17-2024 End: 26-06-8073Sunnkug encounter statusBrheriberto Villarealtrick DIRECTOR STATE PHARMACY Work Phone: noms HealthcareStart: 07-17-2024 End: 12-59-6995Bbptqooq preventive med est patient 40-64yrsDaniel Sanchez DIRECTOR STATE PHARMACY Work Phone: noms CWM FMComment on above:Encounter to establish care (Primary Dx); Wellness examination; Primary hypertension (CMS/HCC); Hypothyroidism, unspecified type (CMS/HCC); Anxiety; Major depressive disorder, recurrent episode, moderate (CMS/HCC); Alcohol abuse; RICHA (obstructive sleep apnea); Encounter for screening mammogram for malignant neoplasm of breast; Cervical spondylosis without myelopathyStart: 07-17-2024 End: 73-49-6353attijuhdqeSIGJGDHHKanika Camilo AvailableStart: 07-12-2024 End: 34-11-8720Ekxfirtwv encounterNorth Valley Health Center KoriKettering [facility] ClinicStart: 06-27-2024 End: 39-98-4794Vdhgqy outpatient visit 25 minutesSamargaret Diehl WAREHOUSE SUPERVISOR-SHEEP FARM MANAGER Work Phone: [facility] ClinicComment on above:Cervical spondylosis without myelopathy (Primary Dx) Start: 06-19-2024 End: 53-37-5157Qyxspwaao encounterSchasity Diehl WAREHOUSE SUPERVISOR-SHEEP FARM MANAGER Work Phone: [facility] ClinicStart: 06-08-2024 End: 10-91-0878Vwpmxkks Result EncounterQuinten Figueroa MD Work Phone: noms External Department UnsolicitedStart: 06-08-2024 End: 16-55-1068Xckhsine Result EncounterQuinten Figueroa MD Work Phone: noms External Department UnsolicitedStart: 06-06-2024 End: 43-79-0957Ldaicw flowsheetQuinten Figueroa MD Work Phone: noms BM NEUROLOGYStart: 06-06-2024 End: 74-22-0279Lyrhpd flowsheetQuinten Figueroa MD Work Phone: noms BM NEUROLOGYStart: 06-06-2024 End: 36-27-0937Lrheex outpatient visit 25 minutesQuinten Figueroa MD Work Phone: noms SWS NEUR BComment on above:Migraine with aura, intractable, with status migrainosus (CMS/HCC) (Primary Dx); Insomnia, psychophysiological; RLS (restless legs syndrome); Family history of cerebral aneurysm; RICHA (obstructive sleep apnea); Poor sleep hygieneStart: 05-23-2024 End: 01-45-8039Xzvvgn outpatient new 45 minutesSamargaret Danyelle Jamey WAREHOUSE SUPERVISOR-SHEEP FARM MANAGER Work Phone: [facility] ClinicComment on above:Chronic neck pain (Primary Dx); Cervical radiculopathyStart: 03-29-2024 End: 66-04-4033vvwcmttvcvMhiosyq R NILLFacility:CD:[id number]: 02-01-2024 End: 42-05-1738tjteazuoblTennafz R NILLFacility: [place]vueStart: 02-01-2024 End: 04-57-6336Dmclwoq encounter procedureMichael R NILL [phone]-Uepyp [facility] [place] Start: 03-78-7182ywgtipatgcWIAPW ANGLIMFacility: BellevueStart: 78-10-5027fmmjvvoeqyZKFVU ANGLIMFacility: [place]vueStart: 04-30-2022 End: 76-14-9075akdvnphwvtYC ANNA HOUSEFacility:I3Kdnod: 10-16-2021 End: 85-38-2422rqqsojkoawSVUGFML D KATKOFacility:H1 Procedures DateProcedureProcedure DetailPerforming ClinicianStart: 92-72-5987Vihsdcdhvjmada aspir&/inj major jt/bursa w/usMaclari DAMON Work Phone: Start: 16-12-7310Dxtef shoulder complete minimum 2 viewsMaclari DAMON Work Phone: Start: 27-38-7355Acybgkpmvquuty aspir&/inj major jt/bursa w/usMattcammy DAMON Work Phone: Start: 38-46-9603Pjloz shoulder complete minimum 2 viewsMaclari DAMON Work Phone: Start: 67-68-2584Enetl chest X-rayPHYSICIAN NO FAMILY Start: 09-13-2024 End: 27-88-6867Hlvfpdpypxyrw w/patient 30 minutesPTSD (post-traumatic stress disorder) (CMS/HCC)Ricarda Ty LSWComment on above:PTSD (post-traumatic stress disorder) (CMS/HCC)Start: 08-30-2024 End: 63-98-5716Nlrtwpftgsbou w/patient 60 minutesPTSD (post-traumatic stress disorder) (CMS/HCC)Ricarda Ty LSWComment on above:PTSD (post-traumatic stress disorder) (CMS/HCC); Alcohol abuseStart: 30-60-8262Kblgfrfh blood count with white cell differential, automatedBrittany Sanchez DIRECTOR STATE PHARMACY Work Phone: Start: 09-53-6729Tecohkwakzryp metabolic panelBrittany Sanchez DIRECTOR STATE PHARMACY Work Phone: Start: 60-69-6901Yrkyz panelBrittany Sanchez DIRECTOR STATE PHARMACY Work Phone: Start: 99-51-0906FPX W/REFLEX TO TI8Zemvcopj Sanchez DIRECTOR STATE PHARMACY Work Phone: Start: 08-16-2024 End: 75-66-9876Xnovcxjlpktpi w/patient 60 minutesPTSD (post-traumatic stress disorder) (CMS/HCC)Ricarda Ty LSWComment on above:PTSD (post-traumatic stress disorder) (CMS/HCC); Alcohol abuseStart: 23-90-9217Xoqodsvx blood count with white cell differential, automatedBrittany Sanchez DIRECTOR STATE PHARMACY Work Phone: Start: 26-94-2866Tlnltbejscexi metabolic panelBrittany Sanchez DIRECTOR STATE PHARMACY Work Phone: Start: 04-38-7148Pqyod panelDaniel Sanchez DIRECTOR STATE PHARMACY Work Phone: Start: 36-57-5056KTK W/REFLEX TO HP1Fnllevultracey Sanchez DIRECTOR STATE PHARMACY Work Phone: Start: 08-09-2024 End: 99-17-9952Vvdbrrskdjgtp w/patient 60 minutesPTSD (post-traumatic stress disorder) (CMS/HCC)Ricarda Ty LSWComment on above:PTSD (post-traumatic stress disorder) (CMS/HCC); Alcohol abuseStart: 08-04-2024 End: 88-03-1366Trkurakyyqhno w/patient 60 minutesPTSD (post-traumatic stress disorder) (CMS/HCC)Ricarda Ty LSWComment on above:PTSD (post-traumatic stress disorder) (CMS/HCC); Alcohol abuseStart: 05-58-4428Voezo culturePHYSICIAN NO FAMILYStart: 07-28-2024 End: 00-61-2414Eoaqdqwmzqh diagnostic evaluationAnxietyTaángel Ty LSWComment on above:Anxiety; Alcohol abuseStart: 05-09-2896FrfjjxpddaeChvgo Hardy LSWStart: 06-08-2024 Complete blood count with white cell differential, automatedMark D Carolina BENITEZ Work Phone: start: 85-48-1956JbehfacjlggYyswntxm Fitzpatrick DIRECTOR STATE PHARMACY Work Phone: Start: 40-07-0432CtyrbjrhcyyXsiw Bej MD Work Phone: colonoscopyMichael NILL Decompression of median nerveMichael NILL Excision of tumor of brain meningesMichael NILL Ligation of fallopian tubeMichael NILL Ostectomy of calcaneus for spurMichael NILL Reduction mammoplastyMichael NILL Vaginal hysterectomyMichael NILL Plan of Treatment DateCare ActivityDetailAuthorStart: 57-84-3971Gduhqjexn for malignant neoplasm of colonNOMS HealthcareStart: 93-17-6157TFwD,Tdap and Td Vaccines (2 - Td or Tdap)DTaP,Tdap and Td Vaccines (2 - Td or Tdap)[facility] SystemStart: 86-23-7646Jospp BMI ScreeningAdult BMI ScreeningProAcmc Healthcare System SystemStart: 12-37-7431Bnwfeam ScreeningTobacco ScreeningProAcmc Healthcare System SystemStart: 49-75-2211Gigkn BMI ScreeningAdult BMI ScreeningGreene Memorial Hospital SystemStart: 64-41-4005Wonncog ScreeningTobacco ScreeningGreene Memorial Hospital SystemStart: 85-63-0604Vpomjoc ScreeningTobacco ScreeningGreene Memorial Hospital SystemStart: 09-25-2025 End: 22-48-4299Kezpkrp encounter fqhydvwzg16/16/2025 9:00 AM EST Office Visit [facility] [address] [place] [phone] Krista Galeano, PA [address] [place] [address] [facility]opaedicsStart: 23-11-1666Vmvkdaipz for malignant neoplasm of colonFOBTNOMS HealthcareStart: 08-28-2025 End: 33-73-4833Rnzuytj encounter whjtavnjl88/18/2025 10:00 AM EST Office Visit [facility] [address] [facility] [address] [place] [address] Quinten Figueroa MD [address] [facility] [address] [place] [address] [place] [id number] [facility] Start: 96-31-6873Luhhp BMI ScreeningAdult BMI ScreeningProMedica Health System Start: 39-72-3570Nccicancz for malignant neoplasm of breastMammogramNOWY HealthcareStart: 10-07-2025Medicare Annual Wellness (AWV)Medicare Annual Wellness (AWV)NOMS HealthcareStart: 59-31-9888Twuvgeo ScreeningTobacco Screening [facility] SystemStart: 07-10-2025 End: 64-29-1610Nvjgujt encounter pxzmziasq35/30/2025 9:00 AM EDT Office Visit [facility] [address] [place] [address] Jacque Daniel, DIRECTOR STATE PHARMACY [address] [place] [address] [facility] JOHNSON FMStart: 51-44-8805Ivalm BMI ScreeningAdult BMI ScreeningGreene Memorial Hospital SystemStart: 06-12-7558Epkwyjb ScreeningTobacco ScreeningRiverside Methodist Hospitalca [facility] SystemStart: 06-26-2025 End: 14-35-5006Dqillmeo SupportNOMS EnglishTucson [facility] NeurologyComment on above:ArrivedStart: 56-11-3940Yimcrxiut vaccinationNOWY HealthcareStart: 06-05-2025 End: 79-96-3412Hfgvuck encounter procedureNOMS [place]stone OrthopaedicsComment on above:Acute pain of left shoulder (Primary Dx)Start: 05-29-2025 End: 51-19-0456Dovnsmk encounter procedureNOMS SWS NEUR BComment on above: ArrivedStart: 48-13-1466Xtdnc BMI ScreeningAdult BMI ScreeningGreene Memorial Hospital SystemStart: 04-73-5642Qhzwhwb ScreeningTobacco ScreeningGreene Memorial Hospital System Start: 05-22-2025 End: 74-55-6720Qwrdhsq encounter procedureNOMS FB ORTHOPAEDICSComment on above: Acute pain of right shoulder (Primary Dx)Start: 05-10-2025 End: 22-76-7723Sqvbxsu encounter mnppfofee76/31/2025 8:40 AM EDT Office Visit [facility] [address] [place] [address] Jacque Daniel, DIRECTOR STATE PHARMACY [address] [place] [address] NOMBrandin JOHNSON FMStart: 05-07-2025 End: 86-75-5583Rcftmmp encounter aikkvzaei52/28/2025 9:00 AM EDT Office Visit [facility] [address] [place] [address] Jacque Daniel, DIRECTOR STATE PHARMACY [address] [place] [address] NOMS ALEX FMStart: 04-24-2025 End: 89-65-5156Khnniek encounter krrvzviyk31/15/2025 10:45 AM EDT Office Visit [facility] SWS NEUR B [address] [facility] [address] [place] [address] Quinten Figueroa MD [address] [facility] [address] [place] [address] N[facility]S SWS NEUR BStart: 03-27-2025 End: 77-41-5765Amayfrk encounter ubfeukmun71/17/2025 7:45 AM EDT Office Visit [facility] [address] [facility] [phone] Denise Diehl, WAREHOUSE SUPERVISOR-SHEEP FARM MANAGER [address] [place] [address] [facility] ClinicStart: 02-27-2025 End: [id number] encounter yaatabqjc19/20/2025 7:45 AM EDT Office Visit [facility] [address] [place] [phone] Denise Diehl, WAREHOUSE SUPERVISOR-SHEEP FARM MANAGER [address] [place] [address] [facility] ClinicStart: 02-06-2025 End: [id number] encounter procedureNOMS CWM FMComment on above:Arrived Start: 02-06-2025 End: 98-47-7818Ijfqapu encounter zfcnandod18/29/2025 10:15 AM EDT Office Visit [facility] NE[facility] B [address] [facility] [address] [place] [address] Quinten Figueroa MD [address] [id number] [facility] NEUR BStart: 01-30-2025 End: 27-68-8274Lygcxlz encounter phweklael87/22/2025 8:45 AM EDT Office Visit [facility] [address] [place] [address] Krista Diehl PA [address] [place] [address] [facility] ClinicStart: 01-16-2025 End: 93-74-2232Myeruwc encounter tsdvmugof36/08/2025 10:00 AM EDT Office Visit [facility] NE[facility] B [address] [facility] [address] [place] [address] Quinten Figueroa MD [address] [address] [facility] NEUR BStart: 01-12-2025 End: 39-51-8034Akbesjnak to same day surgery povrpw6001/12/2025 12:45 PM EDT - 01/12/2025 12:52 PM EDT Surgery [facility] [address] [place] [address] Pb Prasad MD [address] [place] [address] INJECTION SPINE TRANSFORAMINAL: right C 5,6Nroot [66901 (CPT )][facility] ProceduresComment on above:INJECTION SPINE TRANSFORAMINAL: right C 5,6 Nroot [89986 (CPT )]Start: 01-12-2025 End: 32-78-5886Fjx anes&/strd w/img tfrml edrl crv/thrc 1 lvlINJECTION SPINE TRANSFORAMINAL Intervertebral disc stenosis of neural canal of cervical region 01/12/2025 12:45 PM EDTFREMONT PAINStart: 87-92-2447Kdcmpynyon hospital visit by lbuhybyxk08/04/2025 12:45 PM EDT Hospital Encounter [facility] [address] [place] [address] Pb Prasad MD [address] [place] [address] [facility]: 01-09-2025 End: 78-21-0092NLD W Auto Differential panel - BloodCBC and differential Lab Routine Anemia due to other cause, not classified Expected: 01/09/2025 (Mulugeta roximate), Expires: 01/09/2026[facility] Work Phone: Comment on above:Expected: 01/09/2025 (Approximate), Expires: 01/09/2026Start: 01-09-2025 End: 59-01-4075Acaallocycuxz metabolic 2000 panel - Serum or PlasmaComprehensive metabolic panel Lab Routine Primary hypertension (CMS/HCC) Gastroesophageal reflux disease, unspecified whether esophagitis present Hypothyroidism, unspecified type (CMS/HCC) Mixed hyperlipidemia (CMS/HCC) Expected: 01/09/2025 (Approximate), Expires: 01/09/2026[facility] HealthcareComment on above:Expected: 01/09/2025 (Approximate), Expires: 01/09/2026Start: 01-09-2025 End: 89-59-9637Jiwdwbcw [Mass/volume] in Serum or PlasmaFerritin Lab Routine Anemia due to other cause, not classified Expected: 01/09/2025 (Approximate), E xpires: 01/09/2026[facility] HealthcareComment on above:Expected: 01/09/2025 (Approximate), Expires: 01/09/2026Start: 01-09-2025 End: 28-31-6076Plwy + transferrin + TIBCIron + transferrin + TIBC Lab Routine Anemia due to other cause, not classified Expected: 01/09/2025 (Approximate), Expires: 01/09/2026[facility] HealthcareComment on above:Expected: 01/09/2025 (Approximate), Expires: 01/09/2026Start: 01-09-2025 End: 44-85-4542Pbbur 1996 panel - Serum or PlasmaLipid panel Lab Routine Major depressive disorder, recurrent episode, moderate (CMS/HCC) Expected: 01/09/2025 (Approximate), Expires: 01/09/2026[facility] HealthcareComment on above:Expected: 01/09/2025 (Approximate), Expires: 01/09/2026Start: 01-09-2025 End: 35-10-9664Jmznwsssmxwp/Creatinine panel in random UrineMicroalbumin / creatinine, urine ratio Lab Routine Primary hypertension ([facility]/HCC) Expected: 01/09/2025 (Approximate), Expires: 01/09/2026[facility] HealthcareComment on above: Expected: 01/09/2025 (Approximate), Expires: 01/09/2026Start: 01-09-2025 End: 04-83-4275Hgxproukzpa [Units/volume] in Serum or PlasmaTSH Lab Routine Hypothyroidism, unspecified type (CMS/HCC) Expected: 01/09/2025 (Approximate), Expires: 01/09/2026[facility] HealthcareComment on above:Expected: 01/09/2025 (Approximate), Expires: 01/09/2026Start: 01-09-2025 End: 38-56-8475Xmtobyqxf (T4) free [Mass/volume] in Serum or PlasmaT4, free Lab Routine Hypothyroidism, unspecified type (CMS/HCC) Expected: 01/09/2025 (Approximate),Expires: 01/09/2026[facility] HealthcareComment on above:Expected: 01/09/2025 (Approximate), Expires: 01/09/2026Start: 01-09-2025 End: 68-81-1897Dkbjbegeeg complete panel - UrineUrinalysis with reflex microscopic (clean catch) Lab Routine Primary hypertension (CMS/HCC) Expected: 01/09/2025 (Approximate), Expires: 01/09/2026[facility] HealthcareComment on above: Expected: 01/09/2025 (Approximate), Expires: 01/09/2026Start: 12-06-2024 End: 51-16-5439Qgmezsu encounter bkteomwxx86/26/2025 8:00 AM EST Office Visit [facility] [address] [place] [address] Daniel Sanchez NP [address] [place] [address] [facility] CWM FMStart: 12-01-2024 End: 55-68-3254Ofqhiiq encounter dpywicnar74/21/2025 10:00 AM EST Office Visit [facility] [address] [place] [address] Krista Galeano PA [address] [facility] 150 [place] [address] [facility] FB ORTHOPAEDICSStart: 11-14-2024 End: 20-54-3102Aybygsj encounter dkdqekpbk09/04/2025 10:00 AM EST Office Visit [facility] [address] [facility] [address] [place] [address] Sada Molina MD [address] [facility] [address] [place] [address] [facility] CI ENTStart: 11-07-2024 End: 93-93-1528Wbbcfzx encounter oxerhhlge19/28/2025 10:15 AM EST Office Visit [facility] NEUR B [address] [facility] [address] [place] [address] Quinten Figueroa MD [address] [facility] [address] [place] [address] [facility] NEUR BStart: 11-03-2024 End: 77-47-0203Yfmurwu encounter qykhigkpw48/24/2025 8:30 AM EST Office Visit [facility] [address] [place] [address] Krista Galeano PA [address] [facility] [address] [place] [address] [facility] FB ORTHOPAEDICSStart: 79-51-5171Bphmcof referralMercer County Community Hospital Work Phone: Start: 10-25-2024 End: 91-04-7954Acrldmy encounter atrrytixu39/15/2025 8:00 AM EST Office Visit [facility] FM [address] [place] [address] Daniel Sanchez NP [address] [place] [address] ArrivedNOMS CWM FMComment on above:ArrivedStart: 10-19-2024 End: 14-07-6661Bfeduay encounter wokemeuvd60/09/2025 8:30 AM EST Office Visit [facility] FM [address] [place] [address] Daniel Sanchez NP [address] [place] [address] [facility] CWM FMStart: 10-10-2024 End: 08-14-4312GP Cervical spine 4 or 5 ViewsXR cervical spine complete 4 to 5 views Imaging Routine Degenerative disc disease, cervical Expected: 10/10/2024 (Approximate), Expires: 10/10/2025[facility] Work Phone: comment on above:Expected: 10/10/2024 (Approximate), Expires: 10/10/2025Start: 10-10-2024 End: 95-17-6495Vkzvfli encounter bnkbqximn90/31/2024 12:00 PM EST Office Visit [facility] NE[facility] B [address] [facility] [address] [place] [address] Bravo Goode, DIRECTOR STATE PHARMACY [address], [facility] [address] [place] [address] [facility] NEUR BStart: 09-26-2024 End: 80-27-0572Tywdbhf encounter procedureNOMS CWM FMStart: 09-19-2024 End: 62-56-5831Wrnygv Work09/19/2024 10:00 AM EST Social Work [facility] [address] [place] [address] Ricarda Ty LSWNOMS FNR BHStart: 09-18-2024 End: 00-80-5391Axfbjml encounter nplqzycnx63/09/2024 8:30 AM EST Office Visit [facility] [address] [facility] [address] [place] [address] Vera Nieto DIRECTOR [employer]ARM[employer] [address] [facility] [address] [place] [address] Cervical pain (Primary Dx); Cervical arthritisNOMS CI ORTHOPAEDICSComment on above:Cervical pain (Primary Dx); Cervical arthritisStart: 09-13-2024 End: 41-96-0130Toijvm Work09/13/2024 1:00 PM EST Social Work [facility] [address] [place] [address] Ricarda Ty LSWNOMS FNR BHStart: 09-05-2024 End: 81-71-3945Jyfuhvn encounter jcpunprpg19/26/2024 2:15 PM EST Office Visit [facility] NEUR B [address] [facility] [address] [place] [address] Quinten Figueroa MD [address] [facility] [address] [place], [place] [address] [facility] NEUR BStart: 09-01-2024 End: 63-21-4149Caoibhegw to same day surgery ngepfa3009/01/2024 12:30 PM EST - 09/01/2024 12:38 PM EST Surgery [facility] [address] [place] [address] Pb Prasad MD [address] [place], [place] [address] INJECTION BLOCK NERVE MEDIAL BRANCH RIGHT C3/4, 4/5 [86867 (CPT )][facility] ProceduresComment on above:INJECTION BLOCK NERVE MEDIAL BRANCH RIGHT C 3/4, 4/5 [70564 (CPT )]Start: 09-01-2024 End: 69-09-3501Lom dx/ther agt pvrt facet jt crv/thrc 1 levelINJECTION BLOCK NERVE MEDIAL BRANCH Cervical spondylosis without myelopathy 09/01/2024 12:30 PM ESTFREMONT PAINStart: 64-80-1506Cxkkvadruv hospital visit by wgggiaibj30/22/2024 12:30 PM EST Hospital Encounter [facility] [address] [place] [address] Pb Prasad MD [address] [place], [place] [address] [facility] ProceduresStart: 08-30-2024 End: 42-63-9458Shvpwb WorkNOMS FNR BHComment on above:ArrivedStart: 08-18-2024 End: 16-78-0065Ddthuaxpj (Vitamin B12) [Mass/volume] in Serum or PlasmaVitamin B12 Lab Routine Anemia, unspecified type Expected: 08/18/2024 (Approximate), Expires: 08/18/2025[facility] Work Phone: Comment on above:Expected: 08/18/2024 (Approximate), Expires: 08/18/2025Start: 08-18-2024 End: 53-43-9042Vuanetqb [Mass/volume] in Serum or PlasmaFerritin Lab Routine Anemia, unspecified type Expected: 08/18/2024 (Approximate), Expires: 08/18/2025 [facility] HealthcareComment on above:Expected: 08/18/2024 (Approximate), Expires: 08/18/2025Start: 08-18-2024 End: 66-01-3993Cpvd + transferrin + TIBCIron + transferrin + TIBC Lab Routine Anemia, unspecified type Expected: 08/18/2024 (Approximate), Expires: 08/18/2025 [facility] HealthcareComment on above:Expected: 08/18/2024 (Approximate), Expires: 08/18/2025Start: 08-18-2024 End: 08-82-4459Jwcvxjuqzyl of occult blood in single stool specimenOccult blood x 1, stool Lab Routine Anemia, unspecified type Expected: 08/18/2024 (Approximate), Expires: 08/18/2025[facility] HealthcareComment on above:Expected: 08/18/2024 (Approximate), Expires: 08/18/2025Start: 08-16-2024 End: 45-92-9853Sdpmeu WorkNOMS FNR BHComment on above:ArrivedStart: 08-15-2024 End: 53-23-6499Bcbqgtv encounter oombpsezl27/05/2024 8:30 AM EST Office Visit [facility] [address] [place] [address] Denise Diehl, WAREHOUSE SUPERVISOR-SHEEP FARM MANAGER [address] [place], [place] [address] [facility] ClinicStart: 08-14-2024 End: 15-27-5079Qobepyn encounter procedureNOMS CWM FMComment on above:Arrived Start: 08-09-2024 End: 87-25-0110Kruymo WorkNOMS FNR BHComment on above:ArrivedStart: 08-08-2024 End: 52-10-7860Haevmzk encounter gzfycajne54/29/2024 10:15 AM EDT Office Visit [facility] NEUR B [address] [facility] [address] [place] [address] Quinten Figueroa MD [address] [facility] [address] [place] [address] [facility] NEUR BStart: 08-04-2024 End: 64-89-5254Nyuwfe WorkNOMS FNR BHComment on above:ArrivedStart: 08-02-2024 Urine cultureBarberton Citizens Hospitaltart: 62-13-3254Bbtqrpcj identified in Urine by CultureUrine [facility] Start: 07-28-2024 End: 16-15-2276Heyaod Work07/28/2024 8:00 AM EDT Social Work [facility] BH [address] [place] [address] Ricarda Ty LSWVALERIE FNR BHStart: 07-17-2024 End: 14-78-5403XLP W Auto Differential panel - BloodCBC and differential Lab Routine Wellness examination Expected: 07/17/2024 (Approximate), Expires: 1 [facility] HealthcareComment on above:Expected: 07/17/2024 (Approximate), Expires: 07/17/2025Start: 07-17-2024 End: 76-05-5115Hftfvpmvrjejb metabolic 2000 panel - Serum or PlasmaComprehensive metabolic panel Lab Routine Wellness examination Expected: 07/17/2024 (Approximate), Expires: 07/17/2025[facility] HealthcareComment on above:Expected: 07/17/2024 (Approximate), Expires: 07/17/2025Start: 07-17-2024 End: 62-90-5161Ktakwyvjvl A1c/Hemoglobin.total in BloodHemoglobin A1c Lab Routine Wellness examination Expected: 07/17/2024 (Approximate), Expires: 07/17/2025[facility] HealthcareComment on above:Expected: 07/17/2024 (Approximate), Expires: 07/17/2025Start: 07-17-2024 End: 74-22-7575Zvajh 1996 panel - Serum or PlasmaLipid panel Lab Routine Wellness examination Expected: 07/17/2024 (Approximate), Expires: 07/17/2025[facility] HealthcareComment on above:Expected: 07/17/2024 (Approximate), Expires: 07/17/2025Start: 07-17-2024 End: 40-78-7126HK Breast - bilateral ScreeningBilateral screening mammogram Imaging Routine Encounter for screening mammogram for malignant neoplasm of breast Expected: 07/17/2024, Expires: 09/16/2025N[facility] HealthcareComment on above: Expected: 07/17/2024, Expires: 09/16/2025Start: 07-17-2024 End: 72-18-2430Xfwcahw encounter tddxdyuqx56/07/2024 2:00 PM EDT Office Visit [facility] FM [address] [place] [address] Daniel Sanchez, ALFREDO [address] [place] [address] ArrivedNOWY CWM FMComment on above:ArrivedStart: 07-17-2024 End: 68-67-2702LAK W/REFLEX TO FT4TSH W/REFLEX TO FT4 Lab Routine Wellness examination Expected: 07/17/2024 (Approximate), Expires: 07/17/2025[facility] Work Phone: Comment on above:Expected: 07/17/2024 (Approximate), Expires: 07/17/2025Start: 07-14-2024 End: 93-65-7005Zlhxkfydu to same day surgery jloqok3507/14/2024 2:35 PM EDT - 07/14/2024 2:42 PM EDT Surgery [facility] P rocedures [address] [place] [address] Pb Prasad MD [address] [place] [address] INJECTION BLOCK NERVE MEDIAL BRANCH BILATERALC3/4, C4/5 MBB [23704 (CPT )] [facility] ProceduresComment on above:INJECTION BLOCK NERVE MEDIAL BRANCH BILATERAL C3/4, C4/5 MBB [94029 (CPT )]Start: 07-14-2024 End: 05-76-7962Wxw dx/ther agt pvrt facet jt crv/thrc 1 levelINJECTION BLOCK NERVE MEDIAL BRANCH Cervical spondylosis without myelopathy 07/14/2024 2:35 PM EDTFREMONT PAINStart: 84-59-5688Flhwkgzxzw hospital visit by belyigntx72/04/2024 2:35 PM EDT Hospital Encounter [facility] [address] [place] [address] Pb Prasad MD [address] [place] [address] [facility] ProceduresStart: 06-27-2024 End: 51-84-1295Loipddg encounter fdigmacoe42/17/2024 1:30 PM EDT Office Visit [facility] [address] [place] [address] Denise Diehl, WAREHOUSE SUPERVISOR-SHEEP FARM MANAGER [address] [place] [address] [facility] ClinicStart: 60-72-6370FMPKR-19 Vaccine ( season)COVID-19 Vaccine ( season)[facility] Start: 68-95-1617Qjnovamuy [facility] HealthcareStart: 05-23-2024 End: 35-23-7360KN Cervical spine ViewsX-ray spine cervical 3 views or less Imaging Routine Chronic neck pain Expected: 05/23/2024, Expires: 05/23/2025 [facility] Work Phone: Comment on above:Expected: 05/23/2024, Expires: 05/23/2025Start: 07-20-5963Vphxjanbm for malignant neoplasm of breastMammogram [facility] HealthcareStart: 02-45-1501Lrrozutovbzjjs of varicella zoster vaccineZoster (Shingles) Vaccine (1 of 2)[facility] SystemStart: 26-64-3972Kvymhjrrm for malignant neoplasm of cervixNOMS HealthcareStart: 28-21-1211Dhyomyxzd for malignant neoplasm of cervixPap SmearNOMS HealthcareStart: 12-21-0987Xluxw BMI Follow Up PlanAdult BMI Follow Up PlanGreene Memorial Hospital SystemStart: 1975 Depression ScreeningDepression ScreeningProAcmc Healthcare System SystemStart: 1963 Screening for malignant neoplasm of colonNOMS HealthcareComprehensive metabolic 2000 panel - Serum or PlasmaOhio Valley Surgical Hospital End: 44-16-0700VC Cervical spine WO contrastMR cervical spine without contrast Imaging Routine Cervical radiculopathy 1 Occurrences starting 05/23/2024 until 05/23/2025[facility] SystemComment on above:1 Occurrences starting 05/23/2024 until 05/23/2025Patient referralMercer [facility] Community Hospital Work Phone: XR Foot - right GE 3 ViewsAdventHealth Wauchula Immunizations Immunization DateImmunizationNotesCare BupywoglUpvdvccl09-96-1346muwkyhbag virus vaccine, unspecified formulationMichael NILL [phone]-Usbvu General Surgery Oklppxss43-48-3952 Influenza, injectable, Madin Jen Canine Kidney, preservative free, quadrivalentLisa Roberthdarz DIRECTOR STATE PHARMACY Work Phone: NOCooper County Memorial HospitalXgolrsgzrm42-49-7307wcntnwp toxoid, reduced diphtheria toxoid, and acellular pertussis vaccine, adsorbedSamantha Nienberg WAREHOUSE SUPERVISOR-SHEEP FARM MANAGER Work Phone: [facility] HospitalDiaheh42-11-8965wbgsvwuhh, injectable, quadrivalent, preservative freeLisa Aichholz DIRECTOR STATE PHARMACY Work Phone: [facility] MedicineAhtklqxxtx27-95-7183VSTT-ItY-2 (COVID-19) mRNAMUL.ORD!j23500Fkhaavk NILL [phone]-RdksrClermont County Hospital12-12-2021 SARS-CoV-2 (COVID-19) mRNA BNT-162b2 vaxMichael NILL [phone]-VjpwgClermont County Hospital11-16-2021 influenza, injectable, quadrivalent, preservative freeDenise Diehl WAREHOUSE SUPERVISOR-SHEEP FARM MANAGER Work Phone: [facility] HospitalGqoyan31-47-2708MWIW-UzY-9 (COVID-19) mRNA BNT-162b2 vaxMichael NILL [phone]-MsydyMercy Health St. Vincent Medical Center BellevueComment on above: Result Comment: 2023-12-09: [id number]-FbN-9 (COVID-19) mRNA BNT-162b2 vaxMichael NILL [phone]-QerguMercy Health St. Vincent Medical Center BellevueComment on above: Result Comment: 2023-12-09: [id number], quadrivalent, recombinant, injectable influenza vaccine, preservative freeDenise Aggarwalenberg WAREHOUSE SUPERVISOR-SHEEP FARM MANAGER Work Phone: [facility] HospitalIhqzun38-10-3480bpagpxkiinwo polysaccharide vaccine, 23 valentLisa Aichholz DIRECTOR STATE PHARMACY Work Phone: [facility] Payers DatePayer CategoryPayerPolicy [id number] (Managed Care)[facility] [id number] Health [id number] 2018MedicareHUMANAMedicareHUMANA MEDICARE HUMANA MEDICARE - [place] RESIDENT [id number] 2017-Present [phone] [place] [id number] 2018Medicare HMOHUMANA MEDICARE [id number] [id number] .1.339333.3.579.2.69544-03-2354Qcreata6733751 2..1.452306.3.579.2.89891-86-0171Zkofdop72982337 2.1.752133.3.579.2.40244-90-9611Xrbvivf59812442 2.16.840.1.590280.3.579.2.59382-55-2396Noybmju01688950 2.16840.1.960406.3.579.2.33028-61-5755Vqpknor07772568 2.840.1.361648.3.579.2.308775-70-7302Bsglgkl58803284 2.840.1.666659.3.579.2.559615-45-1887Ypdqcod74389852 2.840.1.926889.3.579.2.715091-18-0063Qkkelug15676414 2..1.473730.3.579.2.192179-30-1181Nagwmcb86031011 2..1.979622.3.579.2.724016-13-3570Tcdasxb02559447 2..1.007151.3.579.2.467608-35-6864Ozdlzqq2071450 2..1.051740.3.579.2.414127-93-4004Bbuarbv5639927 2.0.1.089636.3.579.2.675931-36-6149Yoajffq5122237 2.0.1.895020.3.579.2.996774-95-1002Gntamwc0457499 2.840.1.593507.3.579.2.466126-77-5280Qterfxd2479854 2..1.768986.3.579.2.671289-15-0003Yiwafva4831156 2.840.1.381872.3.579.2.321967-27-8143Neaiozs4106044 2.840.1.183598.3.579.2.560775-11-0411Zrfngkl5675418 2.16.840.1.228923.3.579.2.478564-40-2063Pltlthg6019054 2.16.840.1.478260.3.579.2.198136-96-2794Tdfqtaz8211930 2.16.840.1.091853.3.579.2.487189-83-7301Rrrmdhn0125923 2.16840.1.868585.3.579.2.420447-78-3419Uqeiaft7260866 2.16840.1.822643.3.579.2.683409-33-4494Ltpdann8584234 2.840.1.183742.3.579.2.368681-76-5560Pzuehua7842629 2.840.1.593640.3.579.2.270063-37-1051Kreuopz2321095 2.840.1.104458.3.579.2.126928-17-5840Nxtbbmz9182457 2.840.1.386775.3.579.2.019283-82-3091Sxhadyg8050370 2.840.1.135707.3.579.2.871575-70-0969Kaawlkv2059394 2.840.1.334913.3.579.2.088085-48-1509Unxswqa3379248 2.840.1.773214.3.579.2.577267-47-5053Vcvmtqd209485101 2.840.1.902051.3.579.2.457952-78-8546Wooncpe472947943 2.840.1.571403.3.579.2.445919-19-7037Klfmdzo533580717 2.16840.1.471408.3.579.2.817126-32-4831Jfcyjhk018076381 2.16.840.1.316029.3.579.2.324259-08-7593Dxnmylz513618299 2.16.840.1.563564.3.579.2.862667-55-1430Nwgsekb625502652 2..840.1.416040.3.579.2.367464-55-5821Cjzcduv442503789 2..840.1.786234.3.579.2.128477-16-0640Bioaaer754111848 2..840.1.252085.3.579.2.230395-39-1881Ohqjuuy579225535 2..840.1.098334.3.579.2.779236-66-8927Idonypy12744086 2.0.1.141557.3.579.2.583351-37-0670Fpibkdh06387217 2..840.1.331781.3.579.2.603170-75-3874Xofqidt29765745 2..840.1.719195.3.579.2.171809-68-7605Caeowbk98478181 2.840.1.970144.3.579.2.1286 [id number] 36n17o20-j24y-0vyc-fkqf-8s56zq54h273Vrszzom26287934 2.840.1.537516.3.579.2.694Jgdndsz56981890 2.840.1.858851.3.579.2.531 Social History DateTypeDetailFacilityStart: 02-01-2024 End: 77-37-1936Vejzmpc smoking statusNever smoked tobacco (finding)[facility] BellevueTobacco smoking statusNeverFisher-ArpitEmanuel Medical Centertart: 05-17-2024 End: 40-99-5720Vgv [facility]Fe[facility]-Fairhilltart: 02-03-2023 End: 31-70-9363Qkvyboh use and exposureSmokeless tobacco non-userNOMS Healthcare Start: 05-17-2024 End: 56-51-9547Nydtlowna beverage intakeCurrent drinker of alcohol (finding)[facility] HealthcareStart: 05-17-2024 End: 32-21-2045Swbutpp of Social functionGreene Memorial Hospital SystemStart: 99-75-0604Srq assigned at birthFeJosiah B. [facility] HealthcareStart: 33-68-6326Cmtool identityIdentifies as female gender (finding)[facility] HealthcareStart: 62-05-3996Vfw assigned at birthNot on fileGreene Memorial Hospital SystemStart: 05-16-2015 End: 08-59-0053EgjZwwqla (finding)[facility] Hospitaltart: 05-23-2024 End: 92-07-3428Mvxthaztp beverage intakeCurrent non-drinker of alcohol (finding) [facility] SystemStart: 69-26-3442Rkcznvg CommentsocialGreene Memorial Hospital SystemStart: 19-56-9751Wofkirvcm beverage intakeEx-drinker (finding)[facility] Goals DatePatient GoalDesired Activity/StatePersonal health goalComment on above: Evaluation of progress towards goal: snf Functional Status OltrWqterhmwauUqlvgwErbcwcgd20-37-7781Muitpyhmpz StatusN/AFcherylHi-[facility] Clinical Notes 02-01-2024 to 06-27-2025 Note Date & LnceJfhoUgrprrli94-74-1936 Evaluation note* Diagnosis Onset Date Resolution Status Admit Date Concussion acuteSeptember 2024 8:07amHeadache, chronic migraine without aura, intractableacuteSeptember 2024 8:07amAcute sinusitisacuteOctober 2024 2:33pmEssential hypertensionacuteOctober 2024 2:33pmGAD (generalized anxiety disorder)acuteOctober 2024 2:33pmGERD with stricture without esophagitisacuteOctober 2024 2:33pmHypothyroidismacuteOctober 2024 2:33pmMixed hyperlipidemiaacuteOctober 2024 2:33pm [facility] Work Phone: 1(126) 407-557409-17-2025 Evaluation note* Diagnosis Onset Date Resolution Status Admit Date Concussion acuteSeptember 2024 8:07amHeadache, chronic migraine without aura, intractableacuteSeptember 2024 8:07amAcute sinusitisacuteOctober 2024 2:33pmEssential hypertensionacuteOctober 2024 2:33pmGAD (generalized anxiety disorder)acuteOctober 2024 2:33pmGERD with stricture without esophagitisacuteOctober 2024 2:33pmHypothyroidismacuteOctober 2024 2:33pmMixed hyperlipidemiaacuteOctober 2024 2:33pmContusion of right foot including toesacuteNovember 2024 9:30amDiarrheaacuteNovember 2024 9:30amEssential hypertensionacuteNovember 2024 9:30amGERD with stricture without esophagitisacuteNovember 2024 9:30amHypokalemiaacuteNovember 2024 9:30amNausea and vomitingacuteNovember 2024 9:30amUTI (urinary tract infection)acuteNovember 2024 9:30am [facility] Work Phone: 1(865) 739-293609-16-2025 History of Present illness Narrative* Quinten Figueroa MD - 06/26/2025 1:30 PM EDT Images from the original note were not included. Procedure Note (Outpatient) Patient: Autumn Bakerey Dept: Neurology : 1965 Appt Date: 06/26/2025 Prev Appt: 05/29/2025 Therapeutic injection -- Trigger Point(s), Neck Indication Cervical trigger points. Identification The patient was positively identified by name and date of . Consent The procedure was explained to the patient. This included indications; possible complications, including at least bleeding, infection, and ; and ill effects from not undergoing the procedure, including at least inadequate treatment and all possible complications therefrom. Informed consent forthe procedure was obtained and witnessed. Medication, per site dexamethasone 4 mg (1 mL) Site Prep The area(s) to be injected was sterilized with 70% isopropanol. Procedure After identifying local anatomical landmarks, the medication(s) was(were) injected via syringe intothe cervical trigger point(s). Patient Instructions The patient was instructed to return should any bleeding or fluid be seen from the puncture site; for fever; numbness; weakness; or any other unexpected symptoms. Assessment Trigger point, cervical region - M53.82 Myalgia, head and neck - M79.12 Follow Up as previously Procedure Codes 24193 X1 -50 ............ Inj Trigger Point, 1 or 2 Muscles A4206 x2 ............ 1 CC sterile syringe&needle J1100 x8 43905-376-75 dexamethasone J2003 x2 8109-8575-96 lidocaine 1% inj (Hospira, 1%, 30 mL, white label blue border) J2001 x2 [address]-1 lidocaine 1% inj (Huons, 1%, 5 mL, cream label green border) J1885 x2 40483-950-22 ketorolac 15 mg (small 1 mL bottles) Quinten Figueroa M.D. [facility] ? [address] ? [place] [address] ? ? fax Neurology ? Clinical Neurophysiology ? Epilepsy ? Sleep Disorders ? Clinical Informatics Procedure Note (Outpatient) Patient: Autumn Brandt Dept: Neurology : 1965 Appt Date: 06/26/2025 Prev Appt: 05/29/2025 Therapeutic injection -- Trigger Point(s), Lumbar Indication Lumbar trigger points. Identification The patient was positively identified by name and date of . Consent The procedure was explained to the patient. This included indications; possible complications, including at least bleeding, infection, and ; and ill effects from not undergoing the procedure, including at least inadequate treatment and all possible complications therefrom. Informed consent forthe procedure was obtained and witnessed. Medication, per site dexamethasone 4 mg (1 mL) Site Prep The area(s) to be injected was sterilized with 70% isopropanol. Procedure After identifying local anatomical landmarks, the medication(s) was(were) injected via syringe intothe trigger point(s) - R upper cervical + bilateral cervical paraspinals Patient Instructions The patient was instructed to return should any bleeding or fluid be seen from the puncture site; for fever; numbness; weakness; or any other unexpected symptoms. Assessment Myalgia, unspecified - M79.10 Trigger point - M79.10 Follow Up as previously Procedure Codes 80337 X1 ............ Inj Trigger Point, 1 or 2 Muscles 98756 X1 ............ Inj Trigger Point, 3+ Muscles A4206 x2 ............ 1 CC sterile syringe&needle J1100 x8 26944-291-26 dexamethasone J2003 x2 3225-3207-32 lidocaine 1% inj (Hospira, 1%, 30 mL, white label blue border) J2001 x2 [address]-5 lidocaine 1% inj (Huons, 1%, 5 mL, cream label green border) J1885 x2 07164-314-30 ketorolac 15 mg (small 1 mL bottles) Quinten Figueroa M.D. [facility] ? [address] ? [place], [place] [address] ? ? fax Neurology ? Clinical Neurophysiology ? Epilepsy ? Sleep Disorders ? Clinical Informatics documented in this encounterFreeman Orthopaedics & Sports [id number] History of Present illness Narrative* NELSON Bonilla - 06/05/2025 9:00 AM EDTAssociated Order(s): L Inj/Asp: L glenohumeral Post-Procedure Diagnose(s): Arthritis of left shoulder Images from the original note were not included. Orthopedic Office note: NAME: Autumn Brnadt : 1965 (EST PT) RT SHOULDER PAIN - S/P DEPO INJ 05/22 (2 WKS) XRAY RT SHOULDER EPIC 11/03/24 XRAY C-SPINE 10/12/24 EPIC MRI C-SPINE 06/14/24 [facility] DEPO INJECTION 11/03/24, 05/22/25 HX PT [facility] ~08/03 [facility] -Bilateral C3/4 4/5 Facet Injection/Medial Branch Block 07/14 and Right C3/4, 4/5 Facet Injection/Medial Branch Block 09/01. Notes maybe 20% relief from injections. HX TENS UNIT STATES SHE WAS FEELING GOOD BUT THE DAY AFTER THE INJECTION, SHE TURNED HER HEAD QUICK AND HAD PAININ SHOULDER AGAIN. HEARD A POP. PAIN UP NECK AND RADIATES DOWN ARM TO FINGERS. +TYL. +ICE AND HEAT.INTERMITTENT N/T IN RT RF AND LF. SOMETIMES WAKES AT HS. SIGRID: ~08/2024, PT STATES SHE SLIPPED AND FELL AND RAN INTO WALL WHILE VISITING HER AT [facility] (EST PT, NEW PROBLEM) LT SHOULDER PAIN XRAY TODAY EPIC 06/05/25 PAIN UP NECK ON LT SIDE WELL. RADIATES DOWN ARM. PAIN DIFFUSE IN SHOULDER, STATES IT FEELS LIKE BONE ON BONE. +TYL. +HEAT. TIGHTNESS. DENIES N/T. 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 Shoulder Musculoskeletal Exam Inspection Left Left shoulder inspection is normal. Ecchymosis: none Peripheral edema: none Atrophy: none Masses: none Palpation Left Crepitus: mild Increased warmth: none Tenderness: present Anterior shoulder: mild Posterior shoulder: moderate AC joint: mild Sternoclavicular joint: none Rotator cuff: mild Trapezius: mild Proximal biceps: none Lateral arm: moderate Elbow: none Range of Motion Left Active ROM: abnormal and pain. Passive ROM: abnormal and pain. Active forward elevation: 80. Passive forward elevation: 100. Shoulder active abduction: 80. Passive abduction: 90. Active external rotation at side: 60. Passive external rotation at side: 60. Internal rotation: side. Range of motion additional comments: LIMITED ROM CONSISTENT WITH FROZEN SHOULDER Strength Left External rotation: 4+/5. External rotation is affected by pain. Internal rotation: 5/5. Internal rotation is affected by pain. Abduction: 4+/5. Abduction is affected by pain. Biceps: 5/5. Triceps: 5/5. Neurovascular Left Radial pulse: normal and 2+ Capillary refill: <3 sec Axillary nerve sensory distribution: normal Scapula Left Left shoulder scapula is normal. Position: normal Winging: none Special Tests Left Rotator Cuff Signs Neer's test: positive Burton test: positive Supraspinatus: negative Painful arc test: positive Biceps/makro Signs Woodson's test: negative Clicking/popping: negative General Constitutional: appears stated age Labored breathing: no Neurological: alert and oriented x3 Skin: intact Orders Placed This Encounter Procedures L Inj/Asp This order was created via procedure documentation XR shoulder 2+ views left Reason for exam:: pain L Inj/Asp: L glenohumeral on 06/05/2025 9:25 AM Indications: pain Details: 22 G needle, ultrasound-guided posterior approach Medications: 2 mL bupivacaine PF 0.5 %; 40 mg methylPREDNISolone acetate 40 MG/ML Outcome: tolerated well, no immediate complications The shoulder was prepped with isopropyl alcohol. Allowed time to fully dry. Under ultrasound guidance the glenohumeral joint was identified. A plain was established to avoid any neurovascular structures or lung, a 21 G needle was placed into the joint under ultrasound guidance and image captured topatients chart demonstrating proper placement in glenohumeral joint. I then injected 40 mg depomedrol and 2 ml of 0.5% bupivacaine Pt tolerated this well and neurovascular intact s/p injection. . ( Codes 60368) Procedure, treatment alternatives, risks and benefits explained, specific risks discussed. Consent was given by the patient. Patient was prepped and draped in the usual sterile fashion. Results - Imaging: - X-rays of the left shoulder show arthritis ICD-10-CM 1. Acute pain of left shoulder M25.512 XR shoulder 2+ views left 2. Arthritis of left shoulder M19.012 Assessment & Plan Left shoulder pain Reports good relief from a previous injection in the right shoulder. Also has a cervical condition treated by neurology, which may contribute to symptoms. Treatment plan: The risks and benefits of an intra-articular cortisone injection were discussed, and agreed to proceed with the injection today. Low-impact stretching was recommended, and advised to avoid heavy lifting to prevent exacerbating symptoms. Clinical decision making: Will be reassessed in 4 months to determine the need for further conservative measures, as not yet ready for surgery. Left shoulder arthritis X-rays performed today confirm the diagnosis. Not interested in any form of surgery for shoulder replacement at this time. Follow-up: 09/2025 PROCEDURE Procedure Performed Intra-articular cortisone injection Questions answered in laymen terms at the bedside. The diagnosis, home exercise plan and any ongoing restrictions/ recommendations reviewed. If unable to be reached in office, I recommend evaluation at nearest Emergency Room if any symptoms worsened or new symptoms develop for requiring urgent evaluation. Visit was preformed using [employer]-energy management specialist speech recognition. documented in this encounterFreeman Orthopaedics & Sports [id number] Telephone encounter Note* Telephone Encounter - Shelton Pennington - 05/29/2025 3:59 PM EDT Patient scheduled SHAMAR on 06/26/25--No annual deductible--35.00 co-pay will be due at visit--patient is aware t bring 35.00 co-pay to visit. [facility] & Sports [id number] Miscellaneous Notes* Telephone Encounter - Shelton Pennington - 05/29/2025 3:59 PM EDT Patient scheduled SHAMAR on 06/26/25--No annual deductible--35.00 co-pay will be due at visit--patient is aware t bring 35.00 co-pay to visit. documented in this encounterFreeman Orthopaedics & Sports [id number] History of Present illness Narrative* Quinten Figueroa MD - 05/29/2025 10:45 AM EDTAssociated Problem(s): RICHA (obstructive sleep apnea) Discussed further surgery (improvement likely to be mild), Inspire (not a candidate), oral appliance (least effective single way to tx RICHA). Positioning tx not likely to be helpful given study results. Plan redo home PSG in 2025, consider restarting PAP with tx of claustrophobia. * Quinten Figueroa MD - 05/29/2025 10:45 AM EDTAssociated Problem(s): Migraine with aura, intractable, with status migrainosus Pred taper. Incr metoprolol ER to 50 qam. * Quinten Figueroa MD - 05/29/2025 10:45 AM EDTAssociated Problem(s): Family history of cerebral aneurysm Plan CTA head 2028. * Quinten Figueroa MD - 05/29/2025 10:45 AM EDTAssociated Problem(s): Insomnia, psychophysiological (Continue current regimen.) * Quinten Figueroa MD - 05/29/2025 10:45 AM EDTAssociated Problem(s): Cervical paraspinal muscle spasm Must incr home PT to 15-20 min/day. May need to return to PT. * Quinten Figueroa MD - 05/29/2025 10:45 AM EDTAssociated Problem(s): RLS (restless legs syndrome) (Per FMD.) * Quinten Figueroa MD - 05/29/2025 10:45 AM EDTAssociated Problem(s): Trigger point of neck Trig point injections R upper cervical + paraspinals - dexa. * Quinten Figueroa MD - 05/29/2025 10:45 AM EDT Images from the original note were not included. Outpatient Progress Note Prev Appt: 02/29/2024 Chief Complaint Patient presents with Migraine Appointment Note -- 3 Month Assessment and Plan - Assessment & Plan Trigger point of neck Trig point injections R upper cervical + paraspinals - dexa. RICHA (obstructive sleep apnea) Discussed further surgery (improvement likely to be mild), Inspire (not a candidate), oral appliance (least effective single way to tx RICHA). Positioning tx not likely to be helpful given study results. Plan redo home PSG in 2025, consider restarting PAP with tx of claustrophobia. Migraine with aura, intractable, with status migrainosus Pred taper. Incr metoprolol ER to 50 qam. Family history of cerebral aneurysm Plan CTA head 2028. Insomnia, psychophysiological (Continue current regimen.) Cervical paraspinal muscle spasm Must incr home PT to 15-20 min/day. May need to return to PT. RLS (restless legs syndrome) (Per FMD.) No orders of the defined types were placed in this encounter. Follow-Up - Follow up in about 3 months (around 08/29/2025). History of Present Illness, Associated Treatments and Results - Dx RICHA . RLS . INSOMNIA Tx OFF AutoPAP @ 5-15 (by ref) + full-face mask (ropinirole 4 hs --PCP) (amitriptyline 100 hs + zolpidem 10 hs --PCP) (+ cyclobenzaprine 10 tid --PCP) Failed nasal pillows Now has full mask X 2 weeks - Use better with the mask. Aes Rash with soap and itching where mask sits on the face. Hx Download - reviewed. Use - poor. Mask - leak noted. PAP somewhat improves sleep and diurnal wakefulness. Residual est AHI was 2.2 but pt was utterly intolerant of the CPAP, including the headgear. Failed Semeiol Snores. No one has observed for apnoeas. Witnessed apnoeas. Awakens 1 x/night. Mouth dry AM. Unrested AM and all day. Weight difficult to control. Circad In bed 9134-8334. Falls asleep 1 h. Out of bed 1000. Naps rarely. Retired. Noct oxim PSG (DEVONTE/Maty, home) - AR=14, supine=10 vs 15. PAPT MSLT MWT Imaging Testing Surgery T&A (age 26) Dx HEADACHES . FHx ANEURYSM Tx ere 140 + amitrip 100 + metoprolol 25 + TPM 200/400 (+ VLF XR 150 --PCP/depr) + prn radha + prn DHE 45 + Mg 500 AEs Hx Freq (> 4 h) - still nearly daily. Significant worsening since falling Jul 2024. ... Orig (pre-CGRP) freq - 16+ d/mo. Imaging (q.v.) Testing Surgery Failed nirav 100 (ineff alone), metoprolol 25 (ineff alone), TPM 100 (ineff), VLF XR 150 (ineff) Onset Aura phosphenes Sx pressure pulsating Loc occipital->frontal R Assoc nausea photophobia phonophobia osmophobia movement-exacerbated dizziness blurred vision phosphenes Trigger barometric stress Compl dysphasia Clust none FHx father - cluster Dx FHx ANEURYSM Tx AEs Hx Mother had SAH due to ruptured aneurysm. Prev rev'd imaging. 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 Per XRs arising from diploic space, expanding the inner & outer tables. Onset Semeiology Imaging MR brain (06/2019, [facility]) - craniotomy R par; scattered ^T2/FLAIR . . . . (02/2016, [facility]) - old craniotomy R par; minor scattered ^T2/FLAIR CTA head (01/2024, [facility]) - no aneurysm Testing Surgery Craniostomy + excision giant cill(1995, [facility]) - giant cell ?deny Failed Dx MYOFASCIITIS . PAIN Tx (cyclobenz 10 tid --PCP) (+ amitrip) + PT comleted AEs Hx Still problematic - see exam. Likely worsening migraines. Not doing home PT. Onset 2023 after a fall Semeiology Pain R>LUE, paresthesias RU III-V Imaging MR C-s (06/2024, [facility]) - gil sten C3-4 modR C4-5 modL C5-6 modB C6-7 sevR modL C7-T1 modR ... vert art fenestrated @ C5 XR C-s (, [facility]) - NL MRI C Spine 07/2024 - Asymmetric right C3-C4 posterior facet arthropathy with surrounding soft tissue and marrow edema Testing Surgery Failed Physical Exam - General appearance, mentation, extraocular movements, facial strength and movement, hearing, upper and lower extremity strength and tone, sensation to gross testing, coordination, and gait are normalor at baseline unless noted below. HEENT - ___, unchanged: Tongue somewhat tall ... Oropharynx narrow L/R, orig: ___ MS - ___, unchanged: ___, orig: ___ CNN - ___, unchanged: ___, orig: ___ Motor - ___, unchanged: ___, orig: ___ Sens - ___, unchanged: ___, orig: ___ Reflex - ___, unchanged: ___, orig: ___ Coord - ___, unchanged: ___, orig: Romberg + even with tactile feedback by examiner Gait - ___, unchanged: ___, orig: ___ Vestib - ___, unchanged: ___, orig: ___ MSK - Spasm - SCM Tr C sev ... Trigger point R upper cerv + muscular, unchanged: ___, orig: ___ Other - ___, unchanged: ___, orig: ___ Vital Signs - Visit Vitals Ht 5' 5 Wt 154 lb BMI 25.63 kg/m OB Status Postmenopausal Smoking Status Never BSA 1.79 m Review of Systems - . Const: Denies appetite change, fever, chills. Allergy: Denies medication reaction. Ocular: Denies visual acuity change. ENT: Denies hearing change. Endoc: Denies weight loss. Resp: Denies dyspnoea, wheezing. Cardiac: Denies angina, palpitations. GI: Denies nausea, vomiting. Haem: Denies bleeding. : Denies incontinence. MSK: Denies arthralgias, joint oedema. Derm: Denies rash, hair loss. Neuro: Denies ataxia, tremor. Also see HPI for elements of ROS documented therein and for details of positive findings, which shall supersede the foregoing. PMH, PSH, Allergies, FH, SH - No past medical history on file. Past Surgical History: Procedure Laterality Date BRAIN TUMOR EXCISION CARPAL TUNNEL RELEASE Bilateral CT ANGIO HEAD 01/27/2024 CT ANGIO HEAD 01/27/[address] [facility] [address] FOOT SURGERY Spur removed OTHER SURGICAL HISTORY Breast reducation OTHER SURGICAL HISTORY Occiptal nerve block in neck PARTIAL HYSTERECTOMY Allergies Allergen Reactions Ketorolac Hallucinations and Hives Promethazine Hives Tizanidine Hives Acetaminophen-Codeine Rash Codeine Rash Other Reaction(s): Trouble Breathing Sulfa Antibiotics Hives and Rash Other Reaction(s): Hives Sulfamethoxazole-Trimethoprim Rash No family history on file. Outpatient Encounter Medications as of 05/29/2025 Medication Sig Dispense Refill albuterol (2.5 MG/3ML) 0.083% nebulizer solution INHALE 3 ML VIA NEBULIZER THREE TIMES DAILY, NEEDED 30 DAYS albuterol HFA 90 mcg/act inhaler Inhale 2 puffs every 6 (six) hours if needed amitriptyline (Elavil) 100 MG tablet Take 1 tablet (100 mg) by mouth at bedtime 30 tablet 3 atorvastatin (Lipitor) 20 MG tablet Take 1 tablet (20 mg) by mouth at bedtime 90 tablet 1 celecoxib (CeleBREX) 100 MG capsule TAKE 1 CAPSULE (100 MG) BY MOUTH IN THE MORNING AND BEFORE BEDTIME 60 capsule 0 cyclobenzaprine (Flexeril) 10 MG tablet TAKE 1 TABLET (10 MG) BY MOUTH 3 (THREE) TIMES A DAY NEEDED FOR MUSCLE SPASMS 90 tablet 1 fluticasone (Flonase) 50 MCG/ACT nasal spray Administer 2 sprays into each nostril Daily Shake gently. Before first use, prime pump. After use, clean tip and replace cap. 48 mL 1 Ylzmcmlbfvy-Ktcvwsvyf-Yxftoo (Trelegy Ellipta) 100-62.5-25 MCG/ACT aerosol powder Inhale 1 puff Daily Rinse mouth after use 60 each 2 levothyroxine (Synthroid, Levoxyl) 88 MCG tablet Take 1 tablet (88 mcg) by mouth in the morning. Take before meals. 90 tablet 1 loratadine (Claritin) 10 MG tablet Take 1 tablet (10 mg) by mouth Daily 90 tablet 1 omeprazole (PriLOSEC) [address] capsule Take 1 capsule (40 mg) by mouth in the morning. Take before meals. Do not crush or chew. 90 capsule 1 Potassium Gluconate 595 (99 K) MG tablet Take 1 tablet by mouth in the morning. 90 tablet 0 rOPINIRole (Requip) 4 MG tablet Take 1 tablet (4 mg) by mouth 1 (one) time each day at the same time 90 tablet 3 SUMAtriptan (Imitrex) 50 MG tablet 1 tab prn migraine. May repeat once in 2 hrs. Max 2/KERR 4/wk 9 tablet 3 topiramate (Topamax) 200 MG tablet 1 tab QAM and 2 tabs QPM 270 tablet 1 venlafaxine XR (Effexor XR) 75 MG 24 hr capsule Take 1 capsule (75 mg) by mouth Daily Take with food. 90 capsule 1 zolpidem (Ambien) 10 MG tablet Take 1 tablet (10 mg) by mouth as needed at bedtime for sleep 30 tablet 0 [] bupivacaine PF (Marcaine) 0.5 % injection 2 mL [] methylPREDNISolone Acetate (DEPO-Medrol) injection 40 mg No facility-administered encounter medications on file as of 05/29/2025. Quinten Figueroa M.D. [facility] ? [address] [facility] [address] ? [place] [address] ? ? fax Neurology ? Clinical Neurophysiology ? Epilepsy ? Sleep Disorders ? Clinical Informatics documented in this encounterFreeman Orthopaedics & Sports [id number] History of Present illness Narrative* NELSON Bonilla - 05/22/2025 9:15 AM EDTAssociated Order(s): L Inj/Asp: R glenohumeral Post-Procedure Diagnose(s): Acute pain of right shoulder; Arthritis of right shoulder Images from the original note were not included. Orthopedic Office note: NAME: Autumn Brandt : 1965 (EST PT) RT SHOULDER PAIN - XRAY RT SHOULDER EPIC 11/03/24 XRAY C-SPINE 10/12/24 EPIC MRI C-SPINE 06/14/24 [facility] DEPO INJECTION 11/03/24 HX PT [facility] ~08/03 [facility] -Bilateral C3/4 4/5 Facet Injection/Medial Branch Block 07/14 and Right C3/4, 4/5 Facet Injection/Medial Branch Block 09/01. Notes maybe 20% relief from injections. HX TENS UNIT PAIN DIFFUSE IN SHOULDER. RADIATES DOWN TO HAND. PAIN IS STARTING TO RADIATE INTO NECK. CONSTANT. +TYL. +HEAT PRN. INTERMITTENT N/T IN RT RF AND LF. DIFFICULTY SLEEPING, HARD TO GET COMFORTABLE. PAINFUL ROM. DENIES SWELLING. STATES SHE HAS NOT SEEN NEURO OR PAIN MGMT SINCE LAST VISIT. SIGRID: ~08/2024, PT STATES SHE SLIPPED AND FELL AND RAN INTO WALL WHILE VISITING HER AT [facility] Shoulder Musculoskeletal Exam Inspection Right Right shoulder inspection is normal. Ecchymosis: none Peripheral edema: none Atrophy: none Masses: none Palpation Right Crepitus: mild Increased warmth: none Tenderness: present Anterior shoulder: mild Posterior shoulder: mild Clavicle: none AC joint: mild Sternoclavicular joint: none Rotator cuff: mild Greater tuberosity: mild Trapezius: mild Medial scapula: none Superior pole of scapula: none Inferior pole of scapula: none Bicipital groove: none Proximal biceps: none Lateral arm: mild Elbow: none Range of Motion Right Right shoulder range of motion is normal. Active ROM: pain. Passive ROM: pain. Active forward elevation: 90. Passive forward elevation: 170. Shoulder active abduction: 80 (+ pain passing 90 degrees). Passive abduction: 170. Active external rotation at side: 80. Passive external rotation at side: 80. Internal rotation: L5. Strength Right External rotation: 5/5. External rotation is affected by pain. Internal rotation: 5/5. Internal rotation is affected by pain. Abduction: 5/5. Abduction is affected by pain. Biceps: 5/5. Triceps: 5/5. Neurovascular Right Radial pulse: normal and 2+ Capillary refill: <3 sec Axillary nerve sensory distribution: normal Scapula Right Right shoulder scapula is normal. Position: normal Winging: none Special Tests Right Rotator Cuff Signs Neer's test: positive Burton test: positive Painful arc test: positive Biceps/marko Signs Speed's test: negative General Constitutional: appears stated age Neurological: alert and oriented x3 Orders Placed This Encounter Procedures L Inj/Asp This order was created via procedure documentation L Inj/Asp: R glenohumeral on 05/22/2025 9:11 AM Indications: pain and diagnostic evaluation Details: 21 G needle, ultrasound-guided posterior approach Medications: 2 mL bupivacaine PF 0.5 %; 40 mg methylPREDNISolone Acetate 20 MG/ML The shoulder was prepped with isopropyl alcohol. Allowed time to fully dry. Under ultrasound guidance the glenohumeral joint was identified. A plain was established to avoid any neurovascular structures or lung, a 21 G needle was placed into the joint under ultrasound guidance and image captured topatients chart demonstrating proper placement in glenohumeral joint. I then injected 40 mg depomedrol and 2 ml of 0.5% bupivacaine Pt tolerated this well and neurovascular intact s/p injection. . ( Codes 17478-EH) Procedure, treatment alternatives, risks and benefits explained, specific risks discussed. Consent was given by the patient. Patient was prepped and draped in the usual sterile fashion. Results - Imaging: - Prior x-rays showed glenohumeral arthritis ICD-10-CM 1. Acute pain of right shoulder M25.511 2. Arthritis of right shoulder M19.011 Assessment & Plan Right shoulder arthritis There are no signs or symptoms of infection. Pain has been progressive with limited range of motionand crepitus. No recent fall or injury reported. Prior x- rays showed glenohumeral arthritis, and symptoms appear to be coming from deep within the joint on physical exam. Treatment plan: An intra-articular injection will be administered as she is not yet ready for a total shoulder replacement. Surgical and nonsurgical treatment options were discussed, and she is awareof the cervical radicular symptoms and has had prior injections for pain management. She was thankful and had no further concerns or questions. Follow-up: She will follow up in 2 weeks for reevaluation and possible evaluation of her left shoulder. Questions answered in laymen terms at the bedside. The diagnosis, home exercise plan and any ongoing restrictions/ recommendations reviewed. If unable to be reached in office, I recommend evaluation at nearest Emergency Room if any symptoms worsened or new symptoms develop for requiring urgent evaluation. Visit was preformed using [employer] management specialist speech recognition. documented in this encounterFreeman Orthopaedics & Sports [id number] History of Present illness Narrative* Jacque Daniel NP - 05/07/2025 9:30 AM EDTAssociated Problem(s): Moderate persistent asthma without complication (HCC) Add trelegy 100, #1 sample MV9W, exp 11/05 Use albuterol prn 8 weeks * Jacque Daniel NP - 05/07/2025 9:00 AM EDT Images from the original note were not included. Autumn Brandt is a 59 y.o. female presents with chief complaint of Gastroesophageal reflux disease, unspecified whether esopha HPI: Asthma: all her life, more albuterol d/t humidity, using 3 times daily. +cough (non productive), +wheezing. Depression/anxiety: no SI/HI Recently going through divorce, is taking effexor All other conditions are stable at this time SUBJECTIVE: MEDICATIONS: Current Outpatient Medications Medication Instructions albuterol (2.5 MG/3ML) 0.083% nebulizer solution INHALE 3 ML VIA NEBULIZER THREE TIMES DAILY, NEEDED 30 DAYS albuterol HFA 90 mcg/act inhaler 2 puffs, Every 6 hours PRN amitriptyline (ELAVIL) 100 mg, Oral, Nightly atorvastatin (LIPITOR) 20 mg, Oral, Nightly celecoxib (CeleBREX) 100 MG capsule TAKE 1 CAPSULE (100 MG) BY MOUTH IN THE MORNING AND BEFORE BEDTIME cyclobenzaprine (FLEXERIL) 10 mg, Oral, 3 times daily PRN fluticasone (Flonase) 50 MCG/ACT nasal spray 2 sprays, Each Nostril, Daily, Shake gently. Before first use, prime pump. After use, clean tip and replace cap. Mathiclnppm-Apwarbens-Cbhgaz (Trelegy Ellipta) 100-62.5-25 MCG/ACT aerosol powder 1 puff, Inhalation, Daily, Rinse mouth after use levothyroxine (SYNTHROID, LEVOXYL) 88 mcg, Oral, Daily before breakfast loratadine (CLARITIN) 10 mg, Oral, Daily omeprazole (PriLOSEC) [address] capsule TAKE 1 CAPSULE BY MOUTH 1 TIME EACH DAY AT THE SAME TIME Potassium Gluconate 595 (99 K) MG tablet 1 tablet, Oral, Every morning rOPINIRole (REQUIP) 4 mg, Oral, Every 24 hours SUMAtriptan (Imitrex) 50 MG tablet 1 tab prn migraine. May repeat once in 2 hrs. Max 2/KERR 4/wk topiramate (Topamax) 200 MG tablet 1 tab QAM and 2 tabs QPM venlafaxine XR (EFFEXOR XR) 75 mg, Oral, Daily, Take with food. zolpidem (AMBIEN) 10 mg, Oral, Nightly PRN ALLERGIES: Allergies Allergen Reactions Ketorolac Hallucinations and Hives Promethazine Hives Tizanidine Hives Acetaminophen-Codeine Rash Codeine Rash Other Reaction(s): Trouble Breathing Sulfa Antibiotics Hives and Rash Other Reaction(s): Hives Sulfamethoxazole-Trimethoprim Rash REVIEW OF SYMPTOMS: Review of Systems Constitutional: Negative for appetite change, chills and fever. HENT: Negative for congestion, ear pain and sore throat. Eyes: Negative for pain, discharge, redness and visual disturbance. Respiratory: Positive for wheezing. Negative for cough and shortness of breath. Cardiovascular: Negative for chest pain, palpitations and leg swelling. Gastrointestinal: Negative for abdominal pain, blood in stool, constipation, diarrhea, nausea and vomiting. Genitourinary: Negative for difficulty urinating, dysuria and frequency. Musculoskeletal: Negative for arthralgias, back pain, joint swelling and myalgias. Skin: Negative for rash and wound. Neurological: Negative for dizziness, tremors, seizures, syncope and headaches. Psychiatric/Behavioral: Negative for behavioral problems, self-injury and suicidal ideas. The patient is not nervous/anxious. Hematological: Does not bruise/bleed easily. Endocrine: Negative for polydipsia, polyphagia and polyuria. Allergic/Immunologic: Negative for environmental allergies and food allergies. PAST MEDICAL HISTORY History reviewed. No pertinent past medical history. Past Surgical History: Procedure Laterality Date BRAIN TUMOR EXCISION CARPAL TUNNEL RELEASE Bilateral CT ANGIO HEAD 01/27/2024 CT ANGIO HEAD 01/27/[address] FOOT SURGERY Spur removed OTHER SURGICAL HISTORY Breast reducation OTHER SURGICAL HISTORY Occiptal nerve block in neck PARTIAL HYSTERECTOMY family history is not on file. OBJECTIVE: Visit Vitals BP 108/70 (BP Location: Left arm, Patient Position: Sitting, BP Cuff Size: Adult long) Pulse 80 Temp 98.5 F (Temporal) Resp 18 Wt 162 lb 12.8 oz SpO2 99% BMI 27.09 kg/m OB Status Postmenopausal Smoking Status Never BSA 1.84 m Physical Exam Vitals and nursing note reviewed. Constitutional: General: She is not in acute distress. Appearance: Normal appearance. HENT: Head: Normocephalic and atraumatic. Right Ear: External ear normal. Left Ear: External ear normal. Nose: Nose normal. Mouth/Throat: Mouth: Mucous membranes are moist. Eyes: Extraocular Movements: Extraocular movements intact. Conjunctiva/sclera: Conjunctivae normal. Neck: Vascular: No carotid bruit. Cardiovascular: Rate and Rhythm: Normal rate and regular rhythm. Pulses: Normal pulses. Heart sounds: Normal heart sounds. Pulmonary: Effort: Pulmonary effort is normal. Breath sounds: Normal breath sounds. Abdominal: General: Bowel sounds are normal. There is no distension. Palpations: Abdomen is soft. There is no mass. Tenderness: There is no abdominal tenderness. Musculoskeletal: General: Normal range of motion. Cervical back: Normal range of motion and neck supple. Right lower leg: No edema. Left lower leg: No edema. Skin: General: Skin is warm and dry. Capillary Refill: Capillary refill takes 2 to 3 seconds. Findings: No rash. Neurological: General: No focal deficit present. Mental Status: She is alert and oriented to person, place, and time. Psychiatric: Mood and Affect: Mood normal. Behavior: Behavior normal. Thought Content: Thought content normal. Judgment: Judgment normal. ASSESSMENT AND PLAN: Follow up in about 2 months (around 07/08/2025) for Recheck. Problem List Items Addressed This Visit Hypothyroidism Currently taking levothyroxine Check labs yearly, prn dose changes and changes in sxs Relevant Medications levothyroxine (Synthroid, Levoxyl) 88 MCG tablet Major depressive disorder, recurrent episode, moderate (HCC) Chronic rhinitis Relevant Medications fluticasone (Flonase) 50 MCG/ACT nasal spray Wellness examination Mixed hyperlipidemia Relevant Medications atorvastatin (Lipitor) 20 MG tablet Moderate persistent asthma without complication (HCC) - Primary Add trelegy 100, #1 sample MV9W, exp 11/05 Use albuterol prn 8 weeks Relevant Medications Icbutuugtzi-Mxatqlvzx-Vexwxr (Trelegy Ellipta) 100-62.5-25 MCG/ACT aerosol powder * Jacque Daniel NP - 05/07/2025 6:23 AM EDTAssociated Problem(s): Hypothyroidism Currently taking levothyroxine Check labs yearly, prn dose changes and changes in sxs * Jacque Daniel NP - 05/07/2025 6:23 AM EDTAssociated Problem(s): Asthma (HCC) (Resolved 05/07/2025) Current med: albuterol prn Flares with bad colds, and season changes, Minimal use documented in this encounterFreeman Orthopaedics & Sports [id number] Telephone encounter Note* Telephone Encounter - Shelton Pennington - 04/24/2025 11:09 AM EDT Patient same day canceled, appt was @ 10:45 she called at 11:00. She RS to 05/29/25 [facility] & Sports [id number] Miscellaneous Notes* Telephone Encounter - Shelton Pennington - 04/24/2025 11:09 AM EDT Patient same day canceled, appt was @ 10:45 she called at 11:00. She RS to 05/29/25 documented in this encounterFreeman Orthopaedics & Sports [id number] History of Present illness Narrative* NELSON Arreaga - 02/08/2025 8:15 AM EDT [facility] [address] [place], [place] [id number] Patient: Autumn Brandt Sex: female : 1965 Age: 59 y.o. 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 Patient reports decreased migraines and significantly decreased right arm pain x 3 weeks post procedure. Date of onset of pain: 2005 , pain has lasted greater than 3 months. Pain scale before treatment: 8/10 Pre-op pain score: 8/10 Post-op pain score: 0/10 Percentage and duration of relief after treatment: see above Pain scale after treatment: - Chief Complaint Patient presents with Neck Pain HPI: July-August 2024 PT completed [facility] no relief 07/14/24 Bilateral C 3/4 4/5 MBB 100% relief for three hours followed by 50% relief for two days, returning to baseline on day three Continued 100% relief on the left 09/01/24 Right C3/4 4/5 medial branch with 80% relief for 3 hours 10/20/24 Right C3/4 4/5 RFA with 70% relief that continues pre-proc pain 07/20 post proc pain 12/1801/12/2025 right C5,6 nerve root injection with 80% x 3 weeks and 50% relief that continues. Neck Pain This is a chronic problem. The current episode started more than 1 year ago (2005). The problem occurs constantly. Progression since onset: 3 weeks improvement post C5,6 NR. Associated with: tripped in yard and fell. The pain is present in the midline, right side, occipital region and anterior neck(Rt shoulder, RUE). The quality of the pain is described as aching and burning (sharp, shooting pain to right taoist). The pain is at a severity of 7/10 (up to 10/10). The pain is moderate. The symptoms are aggravated by twisting, stress, sneezing, position, coughing and bending (moving head up, down, left, right, hyperextension). The pain is Same all the time. Stiffness is present All day. Associated symptoms include headaches (daily), numbness (Right ring and pinky fingers), photophobia, tingling (RUE) and weakness (RUE). Pertinent negatives include no chest pain or fever. Associated symptoms comments: Pain radiates down posterior aspect of right arm into pinky and ring finger . Treatments tried: Voltaren gel, NSAIDs (ibuprofen, meloxicam), tylenol with minimal, Cervical RFA with mod relief. The treatment provided moderate relief. The effect of pain on patient's ADLS: Moderate Impairment. Past Medical History: Diagnosis Date Anxiety [place] [place] Carpal tunnel syndrome Chronic pain neck and back Coronary artery disease Depression GERD (gastroesophageal reflux disease) Headache(784.0) High cholesterol Hypertension Hypothyroidism Migraine Neck pain Neurologic abnormality [place] [place] 06/29/2019 Sleep apnea 2019 Past Surgical History: Procedure Laterality Date CARPAL TUNNEL RELEASE Bilateral CARPAL TUNNEL RELEASE Bilateral 2002,2003 CRANIOTOMY Right parietal, for benign tumor ESOPHAGOGASTRODUODENOSCOPY N/A 03/02/2023 Performed by Jaswant Gibbons DO at [facility] BLOCK NERVE MEDIAL BRANCH BILAT C 3/4, 4/5 Bilateral 07/14/2024 Performed by Pb Prasad MD at [facility] INJECTION BLOCK NERVE MEDIAL BRANCH RIGHT C 3/4, 4/5 Right 09/01/2024 Performed by Pb Prasad MD at [facility] INJECTION SPINE TRANSFORAMINAL: right C 5,6 Nroot Right 01/12/2025 Performed by Pb Prasad MD at [facility] RADIO FREQUENCY ABLATION - Right C2/3, C3/4 RFA Right 03/12/2017 Performed by Pb Prasad MD at [facility] RADIOFREQUENCY ABLATION SPINAL RIGHT C 3/4, 4/5 Right 10/20/2024 Performed by Pb Prasad MD at [facility] MAMMAPLASTY Bilateral 10/11/2006 SPINAL CORD STIMULATOR IMPLANT SPINAL CORD STIMULATOR REMOVAL TONSILLECTOMY TONSILLECTOMY TUBAL LIGATION Allergies Allergen Reactions Ketorolac Hives and Hallucinations Promethazine Hcl Hives Tizanidine Hives Codeine Rash Sulfa (Sulfonamide Antibiotics) Hives and Rash Sulfamethoxazole-Trimethoprim Rash Family History Problem Relation Age of Onset Cerebral aneurysm Mother Restless legs syndrome Mother Aneurysm Mother Prostate cancer Father Ovarian cancer Maternal Aunt Ovarian cancer Maternal Aunt Ovarian cancer Maternal Aunt Ovarian cancer Maternal Aunt Social History Socioeconomic History Marital status: Spouse name: Not on file Number of children: Not on file Years of education: Not on file Highest education level: Not on file Occupational History Not on file Tobacco Use Smoking status: Never Smokeless tobacco: Never Vaping Use Vaping status: Never Used Substance and Sexual Activity Alcohol use: Not Currently Drug use: Yes Types: Marijuana Comment: marijuana gummies Sexual activity: Defer Partners: Male Other Topics Concern Not on file Social History Narrative Not on file Social Drivers of Health Financial Resource Strain: Not on file Food Insecurity: No Food Insecurity (02/08/2025) Hunger Screening Food Insecurity - Worry: Never True Food Insecurity - Inability: Never True Transportation Needs: Not on file Physical Activity: Not on file Stress: Not on file Social Connections: Not on file Interpersonal Safety: Not on file Housing Instability: Not on file Review of Systems Constitutional: Negative for fever. HENT: Positive for rhinorrhea. Eyes: Positive for photophobia. Respiratory: Positive for cough. Negative for shortness of breath. Cardiovascular: Negative for chest pain. Gastrointestinal: Positive for constipation. Negative for diarrhea. Genitourinary: Negative. Musculoskeletal: Positive for neck pain. Skin: Negative. Neurological: Positive for tingling (RUE), weakness (RUE), numbness (Right ring and pinky fingers) and headaches (daily). Psychiatric/Behavioral: Negative. Vital Signs: BP (!) 131/93 Pulse 96 Resp 14 Wt 74.4 kg (164 lb) LMP (LMP Unknown) SpO2 100% BMI 27.29 kg/m Physical Exam: GENERAL - Healthy patient that appears stated age. HEENT - Normocephalic / Atraumatic, Extraoccular movements intact, trachea midline, thyroid within normal limits. CV - pulse regular, Warm extremities with appropriate color of nailbeds. RESP - No obvious wheezing, No Shortness of Breath, No overexertion response to exam maneuvers. COORDINATION - remains intact. PSYCH - Alert and Oriented x4, Attentive and appropriate, constitutionally normal, displays normal mood and affect per situation, answered questions appropriately during examination, demonstrated appropriate attention during discussion, demonstrated appropriate cognitive reasoning and understandingof the medical condition by asking appropriate questions regarding the diagnosis and risks/benefits/alternatives of treatment modalities. No obvious deficits in memory, reasoning, or intellect. Cervical: SKIN - No rashes or bruising in the area of the patient s pain. LYMPH NODES - demonstrate no obvious enlargement. EXTREMITIES - Upper extremities are warm, with minimal edema and palpable pulses. Tenderness to palpation noted in the cervical spine and paraspinal musculature. Pain is elicited with flexion, extension, and lateral rotation of the cervical spine. Range of motion is diminished with these motions due to pain. Facet palpation is noted to be painful and concordant with the patient s normal pain complaints. STRENGTH - noted to be 5 out of 5 all muscle groups bilateral upper extremities including muscles involving shoulder flexion and abduction, elbow flexion and extension, as well as wrist flexion and extension and intrinsic muscles of the hand. No notable atrophy, fasciculations or spasm. SENSORY - No notable sensory deficits in the bilateral upper extremities to touch or pinprick in all dermatomal distributions. Spurlings sign is negative. Assessment/Treatment Plan: Jacque was seen today for neck pain. Diagnoses and all orders for this visit: Cervical spondylosis without myelopathy Monitor Follow up 6 weeks The medications prescribed have been reviewed for medication interactions/contraindications and/or for upcoming procedures: continue current medication regimen without any changes. DISCUSSION: Treatment options discussed with patient and all questions answered to patient's satisfaction. Discussed the rules and regulations surrounding prescription of opioids and compliance at length. Failure to follow the rules and regulation will result in tapering and discontinuation of medications if applicable. Prescribed medication that requires intensive monitoring for toxicity We do not currently prescribeany controlled substance from this practice. It does appear that the patient benefited from the previous injection and the benefit has continuedthrough this visit. At this time, we will monitor the patient s symptoms from an interventional standpoint and consider another injection in the future if the patient s symptoms return or intensify severely. The patient was made aware that they should call if symptoms worsen or if their pain beginsto have a negative impact on their quality of life and activities of daily living again. The spine model was demonstrated and MRI was reviewed and used to explain the condition. OARRS: Reviewed. Scribe Statement: Jacque Elliott CNA, scribed for and in the presence of NELSON ARREAGA who performed the above service. Jacque Lanza CNA 02/08/25 [id number] NELSON Arreaga 02/08/25 [id number] documented in this encounterDayton Osteopathic Hospital04[facility]29-2025 History of Present illness Narrative* Jacque Daniel NP - 02/06/2025 12:11 PM EDTAssociated Problem(s): Chronic rhinitis Throat irritation better with antihistamine addition * Jacque Daniel NP - 02/06/2025 12:10 PM EDTAssociated Problem(s): Acute non- recurrent pansinusitis Atb, fluids, rest, saline irrigation Fu if not better * LAUREL ORTEGA - 02/06/2025 11:30 AM EDT Pt has been down with a cold since 01/22 No vomiting, nausea, diarrhea, sinus, plugged ears, runny/stuffy nose, scratchy/sore throat, wet shallow cough, green mucus, no fever, body aches and pains, chills and sweats, no at home tests, no energy, very fatigue * Jacque Daniel NP - 02/06/2025 11:30 AM EDT Images from the original note were not included. Autumn Brandt is a 59 y.o. female presents with chief complaint of No chief complaint on file. HPI: Sinusitis The current episode started 1 to 4 weeks ago. The problem is unchanged. There has been no fever. The pain is moderate. Associated symptoms include congestion, coughing and sinus pressure. Pertinent negatives include no chills, ear pain, headaches, hoarse voice, shortness of breath, sore throat or swollen glands. Past treatments include saline nose sprays. The treatment provided mild relief. SUBJECTIVE: MEDICATIONS: Current Outpatient Medications Medication Instructions albuterol (2.5 MG/3ML) 0.083% nebulizer solution INHALE 3 ML VIA NEBULIZER THREE TIMES DAILY, NEEDED 30 DAYS albuterol HFA 90 mcg/act inhaler 2 puffs, Every 6 hours PRN amitriptyline (ELAVIL) 100 mg, Oral, Nightly atorvastatin (LIPITOR) 20 mg, Oral, Nightly celecoxib (CELEBREX) 100 mg, Oral, 2 times daily cyclobenzaprine (FLEXERIL) 10 mg, Oral, 3 times daily PRN fluticasone (Flonase) 50 MCG/ACT nasal spray 2 sprays, Each Nostril, Daily, Shake gently. Before first use, prime pump. After use, clean tip and replace cap. Glucosamine Sulfate 750 mg, Oral, Daily levothyroxine (SYNTHROID, LEVOXYL) 88 mcg, Oral, Daily before breakfast loratadine (CLARITIN) 10 mg, Oral, Daily omeprazole (PRILOSEC) 40 mg, Oral, Every 24 hours Potassium Gluconate 595 (99 K) MG tablet 1 tablet, Oral, Every morning rOPINIRole (REQUIP) 4 mg, Oral, Every 24 hours SUMAtriptan (Imitrex) 50 MG tablet 1 tab prn migraine. May repeat once in 2 hrs. Max 2/KERR 4/wk topiramate (Topamax) 200 MG tablet 1 tab QAM and 2 tabs QPM venlafaxine XR (EFFEXOR XR) 75 mg, Oral, Daily, Take with food. zolpidem (AMBIEN) 10 mg, Oral, Nightly PRN ALLERGIES: Allergies Allergen Reactions Ketorolac Hallucinations and Hives Promethazine Hives Tizanidine Hives Acetaminophen-Codeine Rash Codeine Rash Other Reaction(s): Trouble Breathing Sulfa Antibiotics Hives and Rash Other Reaction(s): Hives Sulfamethoxazole-Trimethoprim Rash REVIEW OF SYMPTOMS: Review of Systems Constitutional: Negative for appetite change, chills and fever. HENT: Positive for congestion and sinus pressure. Negative for ear pain, hoarse voice and sore throat. Eyes: Negative for pain, discharge, redness and visual disturbance. Respiratory: Positive for cough. Negative for shortness of breath and wheezing. Cardiovascular: Negative for chest pain, palpitations and leg swelling. Gastrointestinal: Negative for abdominal pain, blood in stool, constipation, diarrhea, nausea and vomiting. Genitourinary: Negative for difficulty urinating, dysuria and frequency. Musculoskeletal: Negative for arthralgias, back pain, joint swelling and myalgias. Skin: Negative for rash and wound. Neurological: Negative for dizziness, tremors, seizures, syncope and headaches. Psychiatric/Behavioral: Negative for behavioral problems, self-injury and suicidal ideas. The patient is not nervous/anxious. Hematological: Does not bruise/bleed easily. Endocrine: Negative for polydipsia, polyphagia and polyuria. Allergic/Immunologic: Negative for environmental allergies and food allergies. PAST MEDICAL HISTORY No past medical history on file. Past Surgical History: Procedure Laterality Date BRAIN TUMOR EXCISION CARPAL TUNNEL RELEASE Bilateral CT ANGIO HEAD 01/27/2024 CT ANGIO HEAD 01/27/[address] FOOT SURGERY Spur removed OTHER SURGICAL HISTORY Breast reducation OTHER SURGICAL HISTORY Occiptal nerve block in neck PARTIAL HYSTERECTOMY family history is not on file. OBJECTIVE: Visit Vitals BP 120/84 (BP Location: Left arm, Patient Position: Sitting, BP Cuff Size: Adult long) Pulse 92 Temp 97.5 F (Temporal) Resp 18 Wt 162 lb 12.8 oz SpO2 98% BMI 27.09 kg/m OB Status Postmenopausal Smoking Status Never BSA 1.84 m Physical Exam Vitals and nursing note reviewed. Constitutional: General: She is not in acute distress. Appearance: Normal appearance. She is not ill-appearing. HENT: Head: Normocephalic and atraumatic. Right Ear: Tympanic membrane, ear canal and external ear normal. Left Ear: Tympanic membrane, ear canal and external ear normal. Nose: Congestion present. No rhinorrhea. Comments: +tender to max/frontal sinus Mouth/Throat: Mouth: Mucous membranes are moist. Pharynx: No oropharyngeal exudate or posterior oropharyngeal erythema. Eyes: Extraocular Movements: Extraocular movements intact. Conjunctiva/sclera: Conjunctivae normal. Cardiovascular: Rate and Rhythm: Normal rate and regular rhythm. Pulses: Normal pulses. Heart sounds: Normal heart sounds. No murmur heard. Pulmonary: Effort: Pulmonary effort is normal. Breath sounds: Normal breath sounds. No wheezing or rhonchi. Musculoskeletal: General: Normal range of motion. Cervical back: Normal range of motion and neck supple. Lymphadenopathy: Cervical: No cervical adenopathy. Skin: General: Skin is warm and dry. Capillary Refill: Capillary refill takes 2 to 3 seconds. Findings: No rash. Neurological: General: No focal deficit present. Mental Status: She is alert and oriented to person, place, and time. Psychiatric: Mood and Affect: Mood normal. Behavior: Behavior normal. Thought Content: Thought content normal. Judgment: Judgment normal. ASSESSMENT AND PLAN: No follow-ups on file. Problem List Items Addressed This Visit Chronic rhinitis Throat irritation better with antihistamine addition Acute non-recurrent pansinusitis - Primary Atb, fluids, rest, saline irrigation Fu if not better Relevant Medications amoxicillin-clavulanate (Augmentin) 875-125 MG tablet documented in this encounterFreeman Orthopaedics & Sports [id number] History of Present illness Narrative* Bravo Goode NP - 01/16/2025 10:00 AM EDTAssociated Problem(s): RICHA (obstructive sleep apnea) Download in one month and before appt She will ask about a latex free mask and fit Change humidification to heated humidification Try to apply flonase to mask or face to dec sensitivity * Bravo Goode NP - 01/16/2025 10:00 AM EDTAssociated Problem(s): Migraine with aura, intractable, with status migrainosus (CMS/HCC) (Continue current regimen.) Cons BTX * Bravo Goode NP - 01/16/2025 10:00 AM EDTAssociated Problem(s): RLS (restless legs syndrome) (Continue current regimen.) Orders: rOPINIRole (Requip) 4 MG tablet; Take 1 tablet (4 mg) by mouth 1 (one) time each day at the same time * Bravo Goode NP - 01/16/2025 10:00 AM EDTAssociated Problem(s): Poor sleep hygiene (Continue sleep hygiene improvements as prev discussed.Limit napping!) * Bravo Goode NP - 01/16/2025 10:00 AM EDTAssociated Problem(s): Family history of cerebral aneurysm Plan CTA head 2028. * Bravo Goode NP - 01/16/2025 10:00 AM EDTAssociated Problem(s): Insomnia, psychophysiological (Continue current regimen.) * Bravo Goode NP - 01/16/2025 10:00 AM EDTAssociated Problem(s): Cervical spondylosis without myelopathy Cont with pain mgt Continue HEP/Stretches. She states PT not affordable Consider EMG BUE documented in this encounterFreeman Orthopaedics & Sports [id number] History of Present illness Narrative* Jacque Daniel NP - 01/09/2025 10:21 AM EDTAssociated Problem(s): Intervertebral disc stenosis of neural canal of cervical region Pain mgmt injections * LAUREL ORTEGA - 01/09/2025 9:40 AM EDT Images from the original note were not included. Autumn Brandt is a 59 y.o. female presents with chief complaint of No chief complaint on file. HPI: New to this provider Reviewed PMH, surgery, meds, and chronic conditions GERD She complains of dysphagia, heartburn, a hoarse voice (since sxs have been going on) and a sore throat. She reports no abdominal pain, no chest pain, no coughing, no nausea or no wheezing. This is a chronic (life long, but worse over the last month or so) problem. The current episode started more than 1 year ago. The problem occurs constantly. The problem has been gradually worsening. The symptoms are aggravated by certain foods. Pertinent negatives include no melena or weight loss. Risk factors include NSAIDs. She has tried a PPI for the symptoms. The treatment provided mild relief. Past procedures do not include an EGD. SUBJECTIVE: MEDICATIONS: Current Outpatient Medications Medication Instructions albuterol (2.5 MG/3ML) 0.083% nebulizer solution INHALE 3 ML VIA NEBULIZER THREE TIMES DAILY, NEEDED 30 DAYS albuterol HFA 90 mcg/act inhaler 2 puffs, Every 6 hours PRN amitriptyline (ELAVIL) 100 mg, Oral, Nightly atorvastatin (LIPITOR) 20 mg, Oral, Nightly celecoxib (CELEBREX) 100 mg, Oral, 2 times daily cyclobenzaprine (FLEXERIL) 10 mg, Oral, 3 times daily PRN fluticasone (Flonase) 50 MCG/ACT nasal spray 2 sprays, Each Nostril, Daily, Shake gently. Before first use, prime pump. After use, clean tip and replace cap. Glucosamine Sulfate 750 mg, Daily levothyroxine (SYNTHROID, LEVOXYL) 88 mcg, Oral, Daily before breakfast omeprazole (PRILOSEC) 40 mg, Oral, Every 24 hours Potassium Gluconate 595 (99 K) MG tablet 1 tablet, Oral, Every morning rOPINIRole (REQUIP) 4 mg, Oral, Every 24 hours SUMAtriptan (Imitrex) 50 MG tablet 1 tab prn migraine. May repeat once in 2 hrs. Max 2/KERR 4/wk topiramate (Topamax) 200 MG tablet 1 tab QAM and 2 tabs QPM venlafaxine XR (EFFEXOR XR) 75 mg, Oral, Daily, Take with food. zolpidem (AMBIEN) 10 mg, Oral, Nightly PRN ALLERGIES: Allergies Allergen Reactions Ketorolac Hallucinations and Hives Promethazine Hives Tizanidine Hives Acetaminophen-Codeine Rash Codeine Rash Other Reaction(s): Trouble Breathing Sulfa Antibiotics Hives and Rash Other Reaction(s): Hives Sulfamethoxazole-Trimethoprim Rash REVIEW OF SYMPTOMS: Review of Systems Constitutional: Negative for appetite change, chills, fever and weight loss. HENT: Positive for hoarse voice (since sxs have been going on) and sore throat. Negative for congestion and ear pain. Eyes: Negative for pain, discharge, redness and visual disturbance. Respiratory: Negative for cough, shortness of breath and wheezing. Cardiovascular: Negative for chest pain, palpitations and leg swelling. Gastrointestinal: Positive for dysphagia and heartburn. Negative for abdominal pain, blood in stool, constipation, diarrhea, melena, nausea and vomiting. GERD Genitourinary: Negative for difficulty urinating, dysuria and frequency. Musculoskeletal: Positive for arthralgias. Negative for back pain, joint swelling and myalgias. Skin: Negative for rash and wound. Neurological: Negative for dizziness, tremors, seizures, syncope and headaches. Psychiatric/Behavioral: Negative for behavioral problems, self-injury and suicidal ideas. The patient is not nervous/anxious. Hematological: Does not bruise/bleed easily. Endocrine: Negative for polydipsia, polyphagia and polyuria. Allergic/Immunologic: Negative for environmental allergies and food allergies. PAST MEDICAL HISTORY No past medical history on file. Past Surgical History: Procedure Laterality Date BRAIN TUMOR EXCISION CARPAL TUNNEL RELEASE Bilateral CT ANGIO HEAD 01/27/2024 CT ANGIO HEAD 01/27/[address] [address] FOOT SURGERY Spur removed OTHER SURGICAL HISTORY Breast reducation OTHER SURGICAL HISTORY Occiptal nerve block in neck PARTIAL HYSTERECTOMY family history is not on file. OBJECTIVE: Visit Vitals BP 118/82 (BP Location: Left arm, Patient Position: Sitting, BP Cuff Size: Adult long) Pulse 84 Temp 97.8 F (Temporal) Resp 18 Wt 163 lb 3.2 oz SpO2 98% BMI 27.16 kg/m OB Status Postmenopausal Smoking Status Never BSA 1.84 m Physical Exam Vitals and nursing note reviewed. Constitutional: General: She is not in acute distress. Appearance: Normal appearance. She is ill-appearing. HENT: Head: Normocephalic and atraumatic. Right Ear: Tympanic membrane, ear canal and external ear normal. Left Ear: Tympanic membrane, ear canal and external ear normal. Nose: Rhinorrhea present. No congestion. Mouth/Throat: Mouth: Mucous membranes are moist. Pharynx: No oropharyngeal exudate or posterior oropharyngeal erythema. Eyes: Extraocular Movements: Extraocular movements intact. Conjunctiva/sclera: Conjunctivae normal. Neck: Vascular: No carotid bruit. Cardiovascular: Rate and Rhythm: Normal rate and regular rhythm. Pulses: Normal pulses. Heart sounds: Normal heart sounds. No murmur heard. Pulmonary: Effort: Pulmonary effort is normal. Breath sounds: Normal breath sounds. No wheezing or rhonchi. Abdominal: General: Bowel sounds are normal. There is no distension. Palpations: Abdomen is soft. There is no mass. Tenderness: There is no abdominal tenderness. Musculoskeletal: Cervical back: Normal range of motion and neck supple. Right lower leg: No edema. Left lower leg: No edema. Lymphadenopathy: Cervical: No cervical adenopathy. Skin: General: Skin is warm and dry. Capillary Refill: Capillary refill takes 2 to 3 seconds. Findings: No rash. Neurological: General: No focal deficit present. Mental Status: She is alert and oriented to person, place, and time. Cranial Nerves: No cranial nerve deficit. Psychiatric: Mood and Affect: Mood normal. Behavior: Behavior normal. Thought Content: Thought content normal. Judgment: Judgment normal. ASSESSMENT AND PLAN: No follow-ups on file. Problem List Items Addressed This Visit Anxiety Current medication: effexor, also as elavil AARON 7=6 Asthma Current med: albuterol prn Flares with bad colds, and season changes, Minimal use Cervical spondylosis without myelopathy Relevant Medications cyclobenzaprine (Flexeril) 10 MG tablet RESOLVED: Depression (CMS/HCC) Current meds: elavil, and effexor PHQ 9= GERD (gastroesophageal reflux disease) Recommendations: freq small meals, nothing to eat or drink at least 2 hours prior to bed, limit caffeine, alcohol, as well as spicy foods Meds to limit or avoid if possible: NSAIDS Elevate HOB if possible Current med: omeprazole Relevant Orders Comprehensive metabolic panel Hypertension (CMS/HCC) Was on diltiazem in the past, this was discontinued, currently not taking anything for blood pressure Relevant Orders Comprehensive metabolic panel Urinalysis with reflex microscopic (clean catch) Microalbumin / creatinine, urine ratio Hypothyroidism (CMS/HCC) Currently taking levothyroxine Check labs yearly, prn dose changes and changes in sxs Relevant Medications levothyroxine (Synthroid, Levoxyl) 88 MCG tablet Other Relevant Orders Comprehensive metabolic panel TSH T4, free Major depressive disorder, recurrent episode, moderate (CMS/HCC) Current meds: elavil, and effexor XR PHQ 9=3 Relevant Medications venlafaxine XR (Effexor XR) 75 MG 24 hr capsule Other Relevant Orders Lipid panel Unspecified convulsions (CMS/HCC) Followed with Neurology RICHA (obstructive sleep apnea) - Primary You have a diagnosis of obstructive sleep [...] Doctor that manages your RICHA: Dr Figueroa Chronic rhinitis Relevant Medications loratadine (Claritin) 10 MG tablet fluticasone (Flonase) 50 MCG/ACT nasal spray Insomnia, psychophysiological Takes ambien for sleep per Dr Figueroa OARRS reviewed Wellness examination Relevant Medications atorvastatin (Lipitor) 20 MG tablet Intervertebral disc stenosis of neural canal of cervical region Pain mgmt injections Relevant Medications Glucosamine Sulfate 750 MG tablet Mixed hyperlipidemia (CMS/HCC) On statin therapy Check labs yearly and prn dose changes Relevant Orders Comprehensive metabolic panel Other specified anemias Relevant Orders CBC and differential Iron + transferrin + TIBC Ferritin Pt started having acid reflex throughout the day and night time Pt states she does take the omeprazole daily-around 10am Pt states that it does help for a few hours and then tapers off. Pt states when her acid reflex flares up she has a hard time eating, drinking, and swallowing Pt currently has some pain in her throat from the acid reflex. Pt had a colonoscopy last April at [facility] in [place] * Jacque Daniel NP - 01/09/2025 6:30 AM EDTAssociated Problem(s): Mixed hyperlipidemia (CMS/HCC) On statin therapy Check labs yearly and prn dose changes * Jacque Daniel NP - 01/09/2025 6:26 AM EDTAssociated Problem(s): Major depressive disorder, recurrent episode, moderate (CMS/HCC) Current meds: elavil, and effexor XR PHQ 9=3 * Jacque Daniel NP - 01/09/2025 6:26 AM EDTAssociated Problem(s): Depression (CMS/HCC) (Resolved 01/09/2025) Current meds: elavil, and effexor PHQ 9= * Jacque Daniel NP - 01/09/2025 6:25 AM EDTAssociated Problem(s): Anxiety Current medication: effexor, also as elavil AARON 7=6 * Jacque Daniel NP - 01/09/2025 6:24 AM EDTAssociated Problem(s): Hypothyroidism (CMS/HCC) Currently taking levothyroxine Check labs yearly, prn dose changes and changes in sxs * Jacque Daniel NP - 01/09/2025 6:24 AM EDTAssociated Problem(s): GERD (gastroesophageal reflux disease) Recommendations: freq small meals, nothing to eat [...] not better will send back to GI * Jacque Daniel NP - 01/09/2025 6:23 AM EDTAssociated Problem(s): Hypertension (CMS/HCC) Was on diltiazem in the past, this was discontinued, currently not taking anything for blood pressure * Jacque Daniel NP - 01/09/2025 6:22 AM EDTAssociated Problem(s): Asthma Current med: albuterol prn Flares with bad colds, and season changes, Minimal use * Jacque Daniel NP - 01/09/2025 6:21 AM EDTAssociated Problem(s): Unspecified convulsions (CMS/HCC) Followed with Neurology * Jacque Daniel NP - 01/09/2025 6:21 AM EDTAssociated Problem(s): Insomnia, psychophysiological Takes ambien for sleep per Dr Carolina HUNTER reviewed * Jacque Daniel NP - 01/09/2025 6:20 AM EDTAssociated Problem(s): RICHA (obstructive sleep apnea) You have a diagnosis of obstructive sleep [...] Doctor that manages your RICHA: Dr Figueroa documented in this [facility]04-01-2025 Instructions* Patient Instructions* Jacque Daniel NP - 01/09/2025 9:40 AM EDT We will try fluticasone nasal spray, add loratadine (claratin) 10mg daily Get fasting labs completed as well documented in this [facility]03-25-2025 History of Present illness Narrative* NELSON Arreaga - 01/02/2025 9:15 AM EDT [facility] [address] [place] [address] Patient: Autumn Brandt Sex: female : 1965 Age: 59 y.o. PCP: Daniel Sanchez APRN-[employer]NAGER 01/02/2025 Autumn Brandt is here for a(n) follow up. Date of onset of pain: 2005 , pain has lasted greater than 3 months. Chief Complaint Patient presents with Neck Pain HPI: July-August 2024 PT completed [facility] no relief 07/14/24 Bilateral C 3/4 4/5 MBB 100% relief for three hours followed by 50% relief for two days, returning to baseline on day three Continued 100% relief on the left 09/01/24 Right C3/4 4/5 medial branch with 80% relief for 3 hours 1/10/25 Right C3/4 4/5 RFA with 70% relief that continues pre-proc pain 07/20 post proc pain /10 Neck Pain This is a chronic problem. The current episode started more than 1 year ago (2005). The problem occurs constantly. The problem has been gradually worsening. Associated with: tripped in yard and fell.The pain is present in the midline, right side, occipital region and anterior neck (Rt shoulder, RUE). The quality of the pain is described as aching, stabbing, shooting and burning. The pain is at aseverity of 6/10. The pain is moderate. The symptoms are aggravated by twisting, stress, sneezing, position, coughing and bending (moving head up, down, left, right, hyperextension). The pain is Sameall the time. Stiffness is present All day. Associated symptoms include headaches (daily), numbness(RUE), photophobia, tingling (RUE) and weakness (RUE). Pertinent negatives include no chest pain orfever. Treatments tried: Voltaren gel, NSAIDs (ibuprofen, meloxicam), tylenol with minimal, Cervical RFA with mod relief. The treatment provided moderate relief. The effect of pain on patient's ADLS: Moderate Impairment. Past Medical History: Diagnosis Date Anxiety Asthma Brain tumor (benign) ([facility]) Carpal tunnel syndrome Chronic pain neck and back Coronary artery disease Depression GERD (gastroesophageal reflux disease) Headache(784.0) High cholesterol Hypertension Hypothyroidism Migraine Neck pain Neurologic abnormality New onset seizure ([facility]) 06/29/2019 Sleep apnea 2020 Past Surgical History: Procedure Laterality Date CARPAL TUNNEL RELEASE Bilateral CARPAL TUNNEL RELEASE Bilateral 2002,2003 CRANIOTOMY Right parietal, for benign tumor ESOPHAGOGASTRODUODENOSCOPY N/A 03/02/2023 Performed by Jaswant Gibbons DO at [facility] INJECTION BLOCK NERVE MEDIAL BRANCH BILAT C 3/4, 4/5 Bilateral 07/14/2024 Performed by Pb Prasad MD at [facility] INJECTION BLOCK NERVE MEDIAL BRANCH RIGHT C 3/4, 4/5 Right 09/01/2024 Performed by Pb Prasad MD at [facility] RADIO FREQUENCY ABLATION - Right C2/3, C3/4 RFA Right 03/12/2017 Performed by Pb Prasad MD at [facility] RADIOFREQUENCY ABLATION SPINAL RIGHT C 3/4, 4/5 Right 10/20/2024 Performed by Pb Prasad MD at [facility] REDUCTION MAMMAPLASTY Bilateral 10/11/2006 SPINAL CORD STIMULATOR IMPLANT SPINAL CORD STIMULATOR REMOVAL TONSILLECTOMY TONSILLECTOMY TUBAL LIGATION Allergies Allergen Reactions Ketorolac Hives and Hallucinations Promethazine Hcl Hives Tizanidine Hives Codeine Rash Sulfa (Sulfonamide Antibiotics) Hives and Rash Sulfamethoxazole-Trimethoprim Rash Family History Problem Relation Age of Onset Cerebral aneurysm Mother Restless legs syndrome Mother Aneurysm Mother Prostate cancer Father Ovarian cancer Maternal Aunt Ovarian cancer Maternal Aunt Ovarian cancer Maternal Aunt Ovarian cancer Maternal Aunt Social History Socioeconomic History Marital status: Spouse name: Not on file Number of children: Not on file Years of education: Not on file Highest education level: Not on file Occupational History Not on file Tobacco Use Smoking status: Never Smokeless tobacco: Never Vaping Use Vaping status: Never Used Substance and Sexual Activity Alcohol use: No Comment: social Drug use: Yes Types: Marijuana Comment: medical card Sexual activity: Defer Partners: Male Other Topics Concern Not on file Social History Narrative Not on file Social Drivers of Health Financial Resource Strain: Not on file Food Insecurity: No Food Insecurity (01/02/2025) Hunger Screening Food Insecurity - Worry: Never True Food Insecurity - Inability: Never True Transportation Needs: Not on file Physical Activity: Not on file Stress: Not on file Social Connections: Not on file Interpersonal Safety: Not on file Housing Instability: Not on file Review of Systems Constitutional: Negative for chills and fever. HENT: Negative. Eyes: Positive for photophobia. Respiratory: Negative for cough and shortness of breath. Cardiovascular: Negative for chest pain. Gastrointestinal: Negative. Endocrine: Negative. Genitourinary: Negative. Musculoskeletal: Positive for neck pain. Skin: Negative. Allergic/Immunologic: Negative. Neurological: Positive for tingling (RUE), weakness (RUE), numbness (RUE) and headaches (daily). Hematological: Negative. Psychiatric/Behavioral: Negative. Vital Signs: BP (!) 130/95 (BP Site: Left Arm) Pulse 88 Ht 165.1 cm (5' 5 ) Wt 74.8 kg (165 lb) LMP (LMPUnknown) SpO2 100% BMI 27.46 kg/m Physical Exam: GENERAL - Healthy patient that appears stated age. HEENT - Normocephalic / Atraumatic, Extraoccular movements intact, trachea midline, thyroid within normal limits. CV - pulse regular, Warm extremities with appropriate color of nailbeds. RESP - No obvious wheezing, No Shortness of Breath, No overexertion response to exam maneuvers. COORDINATION - remains intact. PSYCH - Alert and Oriented x4, Attentive and appropriate, constitutionally normal, displays normal mood and affect per situation, answered questions appropriately during examination, demonstrated appropriate attention during discussion, demonstrated appropriate cognitive reasoning and understandingof the medical condition by asking appropriate questions regarding the diagnosis and risks/benefits/alternatives of treatment modalities. No obvious deficits in memory, reasoning, or intellect. Cervical: SKIN - No rashes or bruising in the area of the patient s pain. LYMPH NODES - demonstrate no obvious enlargement. EXTREMITIES - Upper extremities are warm, with minimal edema and palpable pulses Tenderness to palpation noted in the cervical spine and paraspinal musculature. Pain is elicited with flexion, extension, and lateral rotation of the cervical spine. Range of motion is diminished with these motions due to pain. Facet palpation is noted to be somewhat tender but not concordant with the patient s normal pain complaints. STRENGTH - noted to be 5 out of 5 all muscle groups bilateral upper extremities including muscles involving shoulder flexion and abduction, elbow flexion and extension, as well as wrist flexion and extension and intrinsic muscles of the hand. No notable atrophy, fasciculations or spasm. SENSORY - No notable sensory deficits in the bilateral upper extremities to touch or pinprick in all dermatomal distributions with exception to decreased sensation in the Right C6 dermatomal distribution(s). Spurlings sign is Positive Assessment/Treatment Plan: Jacque was seen today for neck pain. Diagnoses and all orders for this visit: Intervertebral disc stenosis of neural canal of cervical region - Case request operating room: INJECTION SPINE TRANSFORAMINAL: right C56 Right C 5/6 Nerve Root Injection - under fluoroscopy with the use of contrast dye (unless contraindicated) It is hopeful that the described procedure will provide symptomatic pain relief. It is felt to be medically necessary noting that the patient has tried and failed more conservative modalities of therapy and this is the next most appropriate step. The procedure was described in detail to the patientas well as the potential benefits of pain reduction alongside risks of the procedure and alternatives. Risks were described as including, but not limited to bleeding, infection, nerve damage, spinal cord injury, paralysis, stroke, dural puncture headache, and medication reaction. The patient expressed understanding regarding the risks and benefits and wishes to proceed. It was explained that Nerve Root Injections and Transforaminal Epidural Injections often require a series of 2-3 before significant relief is noted, but we will determine after each injection if another one is indicated. Depending on the amount and duration of relief obtained from the injection, additional modalities of therapy including medications and physical therapy may need to be utilized alongside or following the injections. The patient would like to continue receiving epidural injections as they provide 50% or more reliefwith sustained improvement in both pain and physical function after the injection lasting for a minimum of three months. Follow up 2 weeks after procedure. The medications I have prescribed have been reviewed for medication interactions/contraindications and/or for upcoming procedures: continue current medication regimen without any changes. DISCUSSION: Treatment options discussed with patient and all questions answered to patient's satisfaction. Discussed the rules and regulations surrounding prescription of opioids and compliance at length. Failure to follow the rules and regulation will result in tapering and discontinuation of medications if applicable. Prescribed medication that requires intensive monitoring for toxicity: We do not currently prescribe any controlled substance from this practice. Chronic conditions not treated during this visit that affected my overall medical decision making: Comorbidity- Obesity The patient does have a comorbid condition of obesity. This will be taken into account in that obesity will contribute to certain pain conditions. It can contribute to pain from degenerative disc disease as well as osteoarthritis of the joints. Many neuropathic symptoms are also amplified due to axial spine loading. Special benefits will also need to be given to procedures. Many procedures are technically more difficult in the light of severe obesity. I will also consider the possibility of undiagnosed obstructive sleep apnea (which often accompanies obesity) when prescribing any narcotic medications. I will weigh the risks and benefits and fully discuss them with the patient for these reasons. Comorbidity- Anxiety The patient describes a significant issue with anxiety. Although treatment is helpful with this regard, the patient is likely need special accommodation due to this condition. For this reason, necessary procedures will likely need to be performed under sedation to decrease procedural anxiety. Comorbidity- Depression The patient has an ongoing issue with depression and currently feels these symptoms are under control and further feels that appropriate pain management would also help these symptoms. The patient isoptimistic about the treatment plan we have laid out. We will continue to monitor these symptoms and remain cogniscent that they may affect the patients perceived improvement from the treatment and willingness to pursue further treatment. At this time the patient appears to be mentally and emotionally stable to undergo procedural and medical therapy. If any warning signs become present, I may refer the patient to a mental health professional for further evaluation. The spine model was demonstrated and Xray was reviewed and used to explain the condition. OARRS: Reviewed. Follow up 2 weeks after procedure. Scribe Statement: I, Iwona Tariq RN, scribed for and in the presence of NELSON ARREAGA who performed the above service. Iwona Tariq RN 01/02/25 [id number] NELSON Arreaga 01/02/25 [id number] documented in this [facility]Day[facility] History of Present illness Narrative* NELSON Bonilla - 12/13/2024 9:45 AM EST Images from the original note were not included. HISTORY OF PRESENT ILLNESS: EST PT Autumn Brandt is an 59 y.o. @ female. (EST PT) RT SHOULDER PAIN ~08/2024; S/P DEPO INJ 11/03 (5 WKS 5 DAYS) XRAY RT SHOULDER EPIC 11/03/24 XRAY C-SPINE 10/12/24 EPIC MRI C-SPINE 06/14/24 [facility] DEPO INJECTION 11/03/24 HX PT [facility] ~08/03 PAIN MANAGEMENT [facility] -Bilateral C3/4 4/5 Facet Injection/Medial Branch Block 07/14 and Right C3/4, 4/5 Facet Injection/Medial Branch Block 09/01. Notes maybe 20% relief from injections. HX TENS UNIT ONLY ABOUT 3 WKS OF RELIEF. PAIN HAS BEEN COMING BACK. PAIN POSTERIORLY, UP NEAR NECK-RT SIDED. +TYL AND USING HEAT. CONSTANT NUMBNESS POSTERIOR SHOULDER UP NEAR NECK. NOTES A DEEP ITCH. DENIES SWELLING. GOOD ROM OF SHOULDER. NOTES COLDNESS IN FINGERS. ABLE TO TURN NECK. DIFFICULTY GETTING TO SLEEP. UNABLE TO SLEEP ON LT SIDE. SIGRID: ~08/2024, PT STATES SHE SLIPPED AND FELL AND RAN INTO WALL WHILE VISITING HER AT [facility] ALLERGIES: Allergies Allergen Reactions Ketorolac Hallucinations and Hives Promethazine Hives Tizanidine Hives Acetaminophen-Codeine Rash Codeine Rash Other Reaction(s): Trouble Breathing Sulfa Antibiotics Hives and Rash Other Reaction(s): Hives Sulfamethoxazole-Trimethoprim Rash HOME MEDICATIONS: Current Outpatient Medications Medication Instructions albuterol (2.5 MG/3ML) 0.083% nebulizer solution INHALE 3 ML VIA NEBULIZER THREE TIMES DAILY, NEEDED 30 DAYS amitriptyline (ELAVIL) 100 mg, Oral, Nightly atorvastatin (LIPITOR) 20 mg, Oral, Nightly celecoxib (CELEBREX) 100 mg, Oral, 2 times daily cyclobenzaprine (FLEXERIL) 10 mg, Oral, 3 times daily PRN fluticasone (Flonase) 50 MCG/ACT nasal spray SPRAY 1 SPRAY INTO EACH NOSTRIL IN THE MORNING Glucosamine Sulfate 750 mg, Daily levothyroxine (Synthroid, Levoxyl) 88 MCG tablet TAKE 1 TABLET BY MOUTH IN THE MORNING. TAKE BEFOREMEALS. omeprazole (PRILOSEC) 40 mg, Oral, Every 24 hours Potassium Gluconate 595 (99 K) MG tablet 1 tablet, Oral, Every morning rOPINIRole (REQUIP) 4 mg, Oral, Every 24 hours SUMAtriptan (IMITREX) 50 mg, Oral, Once as needed topiramate (Topamax) 200 MG tablet 1 tab QAM and 2 tabs QPM venlafaxine XR (EFFEXOR XR) 75 mg, Oral, Daily, Take with food. zolpidem (AMBIEN) 10 mg, Oral, Nightly PRN PHYSICAL EXAM: Shoulder Musculoskeletal Exam Inspection Right Right shoulder inspection is normal. Ecchymosis: none Peripheral edema: none Atrophy: none Masses: none Palpation Right Right shoulder palpation is normal. Crepitus: mild Increased warmth: none Tenderness: present AC joint: none Sternoclavicular joint: none Rotator cuff: none Trapezius: moderate Trapezius comment: spasm mid proximal trap to right paracervical soft tissue posterior lateral inferior to the level of ear. Bicipital groove: none Proximal biceps: none Distal biceps: none Lateral arm: none Elbow: none Range of Motion Right Right shoulder range of motion is normal. Active ROM: abnormal and no pain. Passive ROM: normal and pain. Passive ROM comment: pain on terminal stretch.. Active forward elevation: 160. Passive forward elevation: 170. Shoulder active abduction: 90. Passive abduction: 160. Active external rotation at side: 70. Passive external rotation at side: 90. Internal rotation: side. Strength Right External rotation: 4-/5. Internal rotation: 5/5. Abduction: 3/5. Biceps: 5/5. Triceps: 5/5. Neurovascular Right Radial pulse: normal and 2+ Capillary refill: <3 sec Axillary nerve sensory distribution: normal Scapula Right Right shoulder scapula is normal. Position: normal Winging: none Special Tests Right Rotator Cuff Signs Neer's test: negative Burton test: negative Biceps/marko Signs Clicking/popping: positive Speed's test: negative AC Joint Signs Active horizontal adduction pain: negative General Constitutional: appears stated age Labored breathing: no Neurological: alert and oriented x3 Vitals: There is no height or weight on file to calculate BMI. Tobacco Use: Low Risk (12/13/2024) Patient History Smoking Tobacco Use: Never Smokeless Tobacco Use: Never Passive Exposure: Not on file Alcohol Use: Not on file IMAGING: Procedures No orders of the defined types were placed in this encounter. ASSESSMENT: ICD-10-CM 1. Acute pain of right shoulder M25.511 2. Neck pain on right side M54.2 3. Arthritis of right shoulder region M19.011 Assessment & Plan 1. Right shoulder arthritis. The patient's x-ray and symptoms of arthritis were discussed at the bedside. Manipulation of the shoulder noted for rotator cuff weakness consistent with rotator cuff arthropathy. However, this does not reproduce her pain. She has significant muscle spasm in the right paracervical region and right trap region, not just one focal area for a trigger point injection. Intermittent radicular symptoms into the upper arm were discussed. She has had pain management injections with only modest relief. Apossible consultation with her neurologist was discussed to see if he treats myofascial pain in theneck. If not, it is recommended she continue treatment with her painter bottom to discus s additional treatment options. She feels her shoulder is functioning too well for thought of shoulder replacement surgery. She will call the office if she develops any shoulder pain for reevaluation. Questions answered in laymen terms at the bedside. The diagnosis, home exercise plan and any ongoing restrictions/ recommendations reviewed. If unable to be reached in office, I recommend evaluation at nearest Emergency Room if any symptoms worsened or new symptoms develop for requiring urgent evaluation. documented in this [facility]02-26-2025 Telephone encounter Note* Telephone Encounter - Micaela Hernandez MA - 12/06/2024 2:21 PM EST You restarted pt on zolpidem at 06/06/24 appt. [facility] [id number] Miscellaneous Notes* Telephone Encounter - Micaela Hernandez MA - 12/06/2024 2:21 PM EST You restarted pt on zolpidem at 06/06/24 appt. documented in this [facility]02-18-2025 History of Present illness Narrative* Denise Diehl APRN-SHEEP FARM MANAGER - 11/28/2024 7:45 AM EST [facility] [address] [place] [address] Patient: Autumn Brandt Sex: female : 1965 Age: 59 y.o. PCP: Daniel Sanchez APRN-SHEEP FARM MANAGER 11/28/2024 Autumn Brandt is here for a(n) post procedure follow up right C 3/4 4/5 RFA with 70% relief that continues today. Patient currently rates pain a 3/10 with it increasing with activity. Patient reports gets occasional 9/10 jabbing pains to right side of neck. States continues to have numbness and tingling to right side of neck, arm, and into hands fingers. Patient reports she saw Dr. Lopez and helena not feel her pain is coming from her neck. He referred her to Dr. Mcihel to evaluate her right shoulder. She had a steroid shoulder injection and her pain is much better in shoulder as well. She is established with neurology for chronic headaches. Date of onset of pain: April 2024 , pain has lasted greater than 3 months. Pain scale before treatment: 07/20 Percentage and duration of relief after treatment: 70% relief that continues Pain scale after treatment: 12/18 Chief Complaint Patient presents with Neck Pain HPI: July-August 2024 PT completed [facility] no relief 07/14/24 Bilateral C 3/4 4/5 MBB 100% relief for three hours followed by 50% relief for two days, returning to baseline on day three Continued 100% relief on the left 09/01/24 Right C3/4 4/5 medial branch with 80% relief for 3 hours 10/20/24 Right C3/4 4/5 RFA with 70% relief that continues pre-proc pain 07/20 post proc pain 12/18 Neck Pain This is a chronic (2005) problem. Episode onset: April 2024. The problem occurs intermittently. The problem has been gradually improving (since CRFA). Associated with: tripped in yard and fell. The pain is present in the midline, right side and occipital region (right shoulder). The quality of the pain is described as aching, stabbing and shooting. The pain is at a severity of 5/10 (worse when turning head gets 9/10 jabbing pain). The pain is moderate. The symptoms are aggravated by twisting, stress, sneezing, position, coughing and bending (moving head up, down, left, right, hyperextension). Worse during: depends on movement of neck. Stiffness is present All day. Associated symptoms include headaches (daily), numbness (right side neck to right arm and into fingers), photophobia, tingling (right side neck to right arm and into fingers) and weakness (right arm). Pertinent negatives include no chest pain or fever. Associated symptoms comments: Bilateral hands cold with R>L . Treatments tried: Voltaren gel, NSAIDs (ibuprofen, meloxicam), tylenol with minimal, Cervical RFAwith mod relief. The effect of pain on patient's ADLS: Moderate Impairment. Past Medical History: Diagnosis Date Anxiety Asthma Brain tumor (benign) ([facility]) Carpal tunnel syndrome Chronic pain neck and back Coronary artery disease Depression GERD (gastroesophageal reflux disease) Headache(784.0) High cholesterol Hypertension Hypothyroidism Migraine Neck pain Neurologic abnormality New onset seizure ([facility]) 06/29/2019 Sleep apnea 2020 Past Surgical History: Procedure Laterality Date CARPAL TUNNEL RELEASE Bilateral CARPAL TUNNEL RELEASE Bilateral 2002,2003 CRANIOTOMY Right parietal, for benign tumor ESOPHAGOGASTRODUODENOSCOPY N/A 03/02/2023 Performed by Jaswant Gibbons DO at [facility] INJECTION BLOCK NERVE MEDIAL BRANCH BILAT C 3/4, 4/5 Bilateral 07/14/2024 Performed by Pb Prasad MD at [facility] INJECTION BLOCK NERVE MEDIAL BRANCH RIGHT C 3/4, 4/5 Right 09/01/2024 Performed by Pb Prasad MD at [facility] RADIO FREQUENCY ABLATION - Right C2/3, C3/4 RFA Right 03/12/2017 Performed by Pb Prasad MD at [facility] RADIOFREQUENCY ABLATION SPINAL RIGHT C 3/4, 4/5 Right 10/20/2024 Performed by Pb Prasad MD at [facility] REDUCTION MAMMAPLASTY Bilateral 10/11/2006 SPINAL CORD STIMULATOR IMPLANT SPINAL CORD STIMULATOR REMOVAL TONSILLECTOMY TONSILLECTOMY TUBAL LIGATION Allergies Allergen Reactions Ketorolac Hives and Hallucinations Promethazine Hcl Hives Tizanidine Hives Codeine Rash Sulfa (Sulfonamide Antibiotics) Hives and Rash Sulfamethoxazole-Trimethoprim Rash Family History Problem Relation Age of Onset Cerebral aneurysm Mother Restless legs syndrome Mother Aneurysm Mother Prostate cancer Father Ovarian cancer Maternal Aunt Ovarian cancer Maternal Aunt Ovarian cancer Maternal Aunt Ovarian cancer Maternal Aunt Social History Socioeconomic History Marital status: Spouse name: Not on file Number of children: Not on file Years of education: Not on file Highest education level: Not on file Occupational History Not on file Tobacco Use Smoking status: Never Smokeless tobacco: Never Vaping Use Vaping status: Never Used Substance and Sexual Activity Alcohol use: No Comment: social Drug use: Yes Types: Marijuana Comment: medical card Sexual activity: Defer Partners: Male Other Topics Concern Not on file Social History Narrative Not on file Social Drivers of Health Financial Resource Strain: Not on file Food Insecurity: No Food Insecurity (11/28/2024) Hunger Screening Food Insecurity - Worry: Never True Food Insecurity - Inability: Never True Transportation Needs: Not on file Physical Activity: Not on file Stress: Not on file Social Connections: Not on file Interpersonal Safety: Not on file Housing Instability: Not on file Review of Systems Constitutional: Negative. Negative for chills and fever. HENT: Negative. Negative for congestion and sore throat. Eyes: Positive for photophobia. Respiratory: Negative. Negative for cough and shortness of breath. Cardiovascular: Negative. Negative for chest pain. Gastrointestinal: Negative. Negative for abdominal pain. Endocrine: Negative. Genitourinary: Negative. Musculoskeletal: Positive for neck pain and neck stiffness. Skin: Negative. Allergic/Immunologic: Negative. Neurological: Positive for tingling (right side neck to right arm and into fingers), weakness (right arm), numbness (right side neck to right arm and into fingers) and headaches (daily). Hematological: Negative. Psychiatric/Behavioral: Negative. Vital Signs: BP 127/84 (BP Site: Right Arm, BP Postition: Sitting) Pulse 81 Resp 18 LMP (LMP Unknown) SpO2 100% Physical Exam: GENERAL - Healthy patient that appears stated age. HEENT - Normocephalic / Atraumatic, Extraoccular movements intact, trachea midline, thyroid within normal limits. CV - pulse regular, Warm extremities with appropriate color of nailbeds. RESP - No obvious wheezing, No Shortness of Breath, No overexertion response to exam maneuvers. COORDINATION - remains intact. PSYCH - Alert and Oriented x4, Attentive and appropriate, constitutionally normal, displays normal mood and affect per situation, answered questions appropriately during examination, demonstrated appropriate attention during discussion, demonstrated appropriate cognitive reasoning and understandingof the medical condition by asking appropriate questions regarding the diagnosis and risks/benefits/alternatives of treatment modalities. No obvious deficits in memory, reasoning, or intellect. Cervical: SKIN - No rashes or bruising in the area of the patient s pain. LYMPH NODES - demonstrate no obvious enlargement. EXTREMITIES - Upper extremities are warm, with minimal edema and palpable pulses. Tenderness to palpation noted in the cervical spine and paraspinal musculature. Pain is elicited with flexion, extension, and lateral rotation of the cervical spine. Range of motion is diminished with these motions due to pain. Facet palpation is noted to be painful and concordant with the patient s normal pain complaints. STRENGTH - noted to be 5 out of 5 all muscle groups bilateral upper extremities including muscles involving shoulder flexion and abduction, elbow flexion and extension, as well as wrist flexion and extension and intrinsic muscles of the hand. No notable atrophy, fasciculations or spasm. SENSORY - No notable sensory deficits in the bilateral upper extremities to touch or pinprick in all dermatomal distributions. Spurlings sign is negative. Assessment/Treatment Plan: Jacque was seen today for neck pain. Diagnoses and all orders for this visit: Cervical spondylosis without myelopathy Monitor Follow up 3 months The medications I have prescribed have been reviewed for medication interactions/contraindications and/or for upcoming procedures: continue current medication regimen without any changes. DISCUSSION: Treatment options discussed with patient and all questions answered to patient's satisfaction. Discussed the rules and regulations surrounding prescription of opioids and compliance at length. Failure to follow the rules and regulation will result in tapering and discontinuation of medications if applicable. Prescribed medication that requires intensive monitoring for toxicity We do not currently prescribeany controlled substance from this practice. It does appear that the patient benefited from the previous injection and the benefit has continuedthrough this visit. At this time, we will monitor the patient s symptoms from an interventional standpoint and consider another injection in the future if the patient s symptoms return or intensify severely. The patient was made aware that they should call if symptoms worsen or if their pain beginsto have a negative impact on their quality of life and activities of daily living again. The spine model was demonstrated and MRI was reviewed and used to explain the condition. OARRS: Reviewed. Scribe Statement: Jacque Elliott CNA, scribed for and in the presence of BAYLEE URENA who performedthe above service. Provider Statement: DENISE Elliott APRN-CNP, personally performed the services described in the documentation,as scribed by Jacque Lanza CNA in my presence, and it is both accurate and complete. Jacque Lanza CNA 11/28/24 0820 BAYLEE Urena 11/28/24 0830 documented in this encounterRiverside [facility] HospitalBeestar [id number] Telephone encounter Note* Telephone Encounter - Bravo Goode NP - 11/21/2024 11:02 AM EST Looks like her insurance will cover Emgality, Ubrelvy or Qulipta. Will send Emgality [facility] [id number] Miscellaneous Notes* Telephone Encounter - Bravo Goode NP - 11/21/2024 11:02 AM EST Looks like her insurance will cover Emgality, Ubrelvy or Qulipta. Will send Emgality * Telephone Encounter - Erna Squires MA - 11/21/2024 10:40 AM EST Pt called and said her Aimovig 140 was over $300 due to new deductible and she cannot afford that and is asking for something in place. Pt has deducible plan and [employer] is medicare so she is not ableto use co-pay card. documented in this encounterNOCooper County Memorial [id number] Telephone encounter Note* Telephone Encounter - Erna Squires MA - 11/21/2024 10:40 AM EST Pt called and said her Aimovig 140 was over $300 due to new deductible and she cannot afford that and is asking for something in place. Pt has deducible plan and [employer] is medicare so she is not ableto use co-pay card. [facility] [id number] History of Present illness Narrative* Quinten Figueroa MD - 11/07/2024 10:15 AM ESTAssociated Problem(s): RICHA (obstructive sleep apnea) Pt needs new humidifier reservoir. Possibly needs new machine, current one is ~10 y old. 2020 note suggests DME is [facility] / [place]. *REMINDER* - check that parts or machine was received, download 6 w afterward. Download before appt too. * Quinten Figueroa MD - 11/07/2024 10:15 AM ESTAssociated Problem(s): Migraine with aura, intractable, with status migrainosus (CMS/HCC) Add Mg 250. After 1 w try incr to 500, remain on if tolerated. * Quinten Figueroa MD - 11/07/2024 10:15 AM ESTAssociated Problem(s): RLS (restless legs syndrome) (Continue current regimen.) * Quinten Figueroa MD - 11/07/2024 10:15 AM ESTAssociated Problem(s): Poor sleep hygiene (Continue sleep hygiene improvements as prev discussed.) * Quinten Figueroa MD - 11/07/2024 10:15 AM ESTAssociated Problem(s): Family history of cerebral aneurysm Plan CTA head 2028. * Quinten Figueroa MD - 11/07/2024 10:15 AM ESTAssociated Problem(s): Insomnia, psychophysiological (Continue current regimen.) * Quinten Figueroa MD - 11/07/2024 10:15 AM EST Images from the original note were not included. Outpatient Progress Note Prev Appt: 02/29/2024 Chief Complaint Patient presents with Migraine Appointment Note -- FU Assessment and Plan - Assessment & Plan RICHA (obstructive sleep apnea) Pt needs new humidifier reservoir. Possibly needs new machine, current one is ~10 y old. 2020 note suggests DME is [facility] / [place]. *REMINDER* - check that parts or machine was received, download 6 w afterward. Download before appt too. Migraine with aura, intractable, with status migrainosus (CMS/HCC) Add Mg 250. After 1 w try incr to 500, remain on if tolerated. RLS (restless legs syndrome) (Continue current regimen.) Poor sleep hygiene (Continue sleep hygiene improvements as prev discussed.) Family history of cerebral aneurysm Plan CTA head 2028. Insomnia, psychophysiological (Continue current regimen.) No orders of the defined types were placed in this encounter. Follow-Up - Follow up in about 3 months (around 02/05/2025), or [facility]. History of Present Illness, Associated Treatments and Results - Dx RICHA . RLS . INSOMNIA Tx ?AutoPAP @ 5-15 (by ref) + full-face mask (ropinirole 4 hs --PCP) (amitriptyline 100 hs + zolpidem 10 hs --PCP) (+ cyclobenzaprine 10 tid --PCP) Aes Hx Not using PAP recently, reservoir cracked in 3 places. Prev difficulty with certain headgears pushing on titanium plate. Failed Semeiol Circad Schedule very disrupted. May sleep only [id number] wide awake. Does not nap. Noct oxim PSG ([facility]/[place], home) - AR=14, supine=10 vs 15 PAPT MSLT MWT Imaging Testing Surgery Dx HEADACHES . FHx ANEURYSM Tx ere 140 + amitrip 100 + metoprolol 25 + TPM 200/400 (+ VLF XR 150 --PCP/depr) + prn radha + prn DHE 45 AEs Hx Freq (> 4 h) - worse since fall in Jul, blamed on R shoulder pain. ... Orig (pre-CGRP) freq -16+ d/mo. Imaging (q.v.) Testing Surgery Failed nirav 100 (ineff alone), metoprolol 25 (ineff alone), TPM 100 (ineff), VLF XR 150 (ineff) Onset Aura phosphenes Sx pressure pulsating Loc occipital->frontal R Assoc nausea photophobia phonophobia osmophobia movement-exacerbated dizziness blurred vision phosphenes Trigger barometric stress Compl dysphasia Clust none FHx father - cluster Dx FHx ANEURYSM Tx AEs Hx Mother had SAH due to ruptured aneurysm. Prev rev'd imaging. 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 Per XRs arising from diploic space, expanding the inner & outer tables. Onset Semeiology Imaging MR brain (06/2019, [facility]) - craniotomy R par; scattered ^T2/FLAIR . . . . (02/2016, [facility]) - old craniotomy R par; minor scattered ^T2/FLAIR CTA head (01/2024, [facility]) - no aneurysm Testing Surgery Craniostomy + excision giant cill(1995, [facility]) - giant cell ?deny Failed Physical Exam - General appearance, mentation, extraocular movements, facial strength and movement, hearing, upper and lower extremity strength and tone, sensation to gross testing, coordination, and gait are normalor at baseline unless noted below. HEENT - ___, unchanged: Tongue somewhat tall, orig: ___ MS - ___, unchanged: ___, orig: ___ CNN - ___, unchanged: ___, orig: ___ Motor - ___, unchanged: ___, orig: ___ Sens - ___, unchanged: ___, orig: ___ Reflex - ___, unchanged: ___, orig: ___ Coord - ___, unchanged: Romberg + even with tactile input by examiner, orig: ___ Gait - ___, unchanged: ___, orig: ___ Vestib - ___, unchanged: ___, orig: ___ MSK - Spasm - C mild, unchanged: ___, orig: ___ Other - ___, unchanged: ___, orig: ___ Vital Signs - Visit Vitals BP 115/73 Pulse 74 Ht 5' 5 Wt 150 lb BMI 24.96 kg/m OB Status Postmenopausal Smoking Status Never BSA 1.77 m Review of Systems - . Const: Denies appetite change, fever, chills. Allergy: Denies medication reaction. Ocular: Denies visual acuity change. ENT: Denies hearing change. Endoc: Denies weight loss. Resp: Denies dyspnoea, wheezing. Cardiac: Denies angina, palpitations. GI: Denies nausea, vomiting. Haem: Denies bleeding. : Denies incontinence. MSK: Denies arthralgias, joint oedema. Derm: Denies rash, hair loss. Neuro: Denies ataxia, tremor. Also see HPI for elements of ROS documented therein and for details of positive findings, which shall supersede the foregoing. PMH, PSH, Allergies, FH, SH - No past medical history on file. Past Surgical History: Procedure Laterality Date BRAIN TUMOR EXCISION CARPAL TUNNEL RELEASE Bilateral CT ANGIO HEAD 01/27/2024 CT ANGIO HEAD 01/27/[address] [facility] [address] FOOT SURGERY Spur removed OTHER SURGICAL HISTORY Breast reducation OTHER SURGICAL HISTORY Occiptal nerve block in neck PARTIAL HYSTERECTOMY Allergies Allergen Reactions Ketorolac Hallucinations and Hives Promethazine Hives Tizanidine Hives Acetaminophen-Codeine Rash Codeine Rash Other Reaction(s): Trouble Breathing Sulfa Antibiotics Hives and Rash Other Reaction(s): Hives Sulfamethoxazole-Trimethoprim Rash No family history on file. Outpatient Encounter Medications as of 11/07/2024 Medication Sig Dispense Refill albuterol (2.5 MG/3ML) 0.083% nebulizer solution INHALE 3 ML VIA NEBULIZER THREE TIMES DAILY, NEEDED 30 DAYS amitriptyline (Elavil) 100 MG tablet Take 1 tablet (100 mg) by mouth at bedtime 30 tablet 3 atorvastatin (Lipitor) 20 MG tablet TAKE 1 TABLET BY MOUTH AT BEDTIME 90 tablet 0 celecoxib (CeleBREX) 100 MG capsule Take 1 capsule (100 mg) by mouth in the morning and 1 capsule (100 mg) before bedtime. 60 capsule 2 cyclobenzaprine (Flexeril) 10 MG tablet Take 1 tablet (10 mg) by mouth 3 (three) times a day as needed for muscle spasms 90 tablet 0 erenumab (Aimovig) 140 MG/ML injection Inject 1 mL (140 mg) under the skin every 28 (twenty-eight) days 1 each 3 fluticasone (Flonase) 50 MCG/ACT nasal spray Administer 1 spray into each nostril in the morning. 16 g 2 Glucosamine Sulfate 750 MG tablet Take 750 mg by mouth Daily levothyroxine (Synthroid, Levoxyl) 88 MCG tablet TAKE 1 TABLET BY MOUTH IN THE MORNING. TAKE BEFOREMEALS. 90 tablet 1 omeprazole (PriLOSEC) [address] capsule TAKE 1 CAPSULE (40 MG) BY MOUTH 1 (ONE) TIME EACH DAY AT THESAME TIME 90 capsule 1 Potassium Gluconate 595 (99 K) MG tablet Take 1 tablet by mouth in the morning. 30 tablet 2 rOPINIRole (Requip) 4 MG tablet 1 (one) time each day at the same time. SUMAtriptan (Imitrex) 50 MG tablet Take 1 tablet (50 mg) by mouth 1 (one) time if needed for migraine 9 tablet 2 topiramate (Topamax) 200 MG tablet TAKE 1 TABLET BY MOUTH IN THE MORNING AND 2 TABLETS IN THE EVENING 90 tablet 3 venlafaxine XR (Effexor XR) 75 MG 24 hr capsule Take 1 capsule (75 mg) by mouth Daily Take with food. 30 capsule 2 zolpidem (Ambien) 10 MG tablet Take 1 tablet (10 mg) by mouth as needed at bedtime for sleep 30 tablet 4 [DISCONTINUED] atorvastatin (Lipitor) 20 MG tablet Take 1 tablet (20 mg) by mouth at bedtime (Patient taking differently: Take 40 mg by mouth at bedtime) 30 tablet 2 [DISCONTINUED] cyclobenzaprine (Flexeril) 10 MG tablet Take 1 tablet (10 mg) by mouth 3 (three) times a day as needed for muscle spasms 90 tablet 0 [DISCONTINUED] Glucosamine 750 MG tablet Take 750 mg by mouth 1 (one) time each day at the same time [DISCONTINUED] Potassium Gluconate 595 (99 K) MG tablet Take 1 tablet by mouth in the morning. [DISCONTINUED] simvastatin (Zocor) 40 MG tablet Take 40 mg by mouth at bedtime (Patient not taking:Reported on 10/25/2024) [DISCONTINUED] verapamil SR (Calan SR) 120 MG ER tablet Take 1 tablet (120 mg) by mouth 1 (one) time each day at the same time 90 tablet 0 No facility-administered encounter medications on file as of 11/07/2024. Quinten Figueroa M.D. [facility] ? [id number] ? [place], [place] [address] ? ? fax Neurology ? Clinical Neurophysiology ? Epilepsy ? Sleep Disorders ? Clinical Informatics documented in this encounterFreeman Orthopaedics & Sports [id number] History of Present illness Narrative* NELSON Bonilla - 11/03/2024 8:30 AM EST Images from the original note were not included. HISTORY OF PRESENT ILLNESS: EST PT Autumn Brandt is an 59 y.o. @ female. EST PT WITH [facility] WITH NEW PROBLEM RT SHOULDER PAIN ~08/2024- PT STATES SHE SLIPPED AND FELL AND RANINTO WALL WHILE VISITING HER AT [facility]- RECENTLY SEEN FOR NECK PAIN AND REFERRED TO DR LOPEZ PER Y[facility]KO; BELIEVES SYMPTOMS ARE COMING FROM SHOULDER- HAS F/U 11/06/24 XRAY RT SHOULDER TODAY EPIC 11/03/24 XRAY C-SPINE 10/12/24 EPIC MRI C-[facility]INE 06/14/24 [facility] ~08[facility]03 [facility] -Bilateral C3/4 4/5 Facet Injection/Medial Branch Block 07/14 and Right C3/4, 4/5 Facet Injection/Medial Branch Block 09/01. Notes maybe 20% relief from injections. HX TENS UNIT PT C/O RT SIDED NECK PAIN- NOTES LIMITED ROM WITH SHOULDER- NOTES SOME TIGHTNESS IN NECK/SHOULDER- NOTES N/T RT LF/RF/MF- C/O NECK CRACKING- LIMITED ROM WITH NECK-CONSTANT PAIN- +THROBBING/ACHINESS-+FLEXERIL/CELEBREX ALLERGIES: Allergies Allergen Reactions Ketorolac Hallucinations and Hives Promethazine Hives Tizanidine Hives Acetaminophen-Codeine Rash Codeine Rash Other Reaction(s): Trouble Breathing Sulfa Antibiotics Hives and Rash Other Reaction(s): Hives Sulfamethoxazole-Trimethoprim Rash HOME MEDICATIONS: Current Outpatient Medications Medication Instructions Aimovig 140 mg, Subcutaneous, Every 28 days albuterol (2.5 MG/3ML) 0.083% nebulizer solution INHALE 3 ML VIA NEBULIZER THREE TIMES DAILY, NEEDED 30 DAYS amitriptyline (ELAVIL) 100 mg, Oral, Nightly atorvastatin (LIPITOR) 20 mg, Oral, Nightly celecoxib (CELEBREX) 100 mg, Oral, 2 times daily cyclobenzaprine (FLEXERIL) 10 mg, Oral, 3 times daily PRN fluticasone (Flonase) 50 MCG/ACT nasal spray 1 spray, Each Nostril, Daily RT Glucosamine Sulfate 750 mg, Daily levothyroxine (Synthroid, Levoxyl) 88 MCG tablet TAKE 1 TABLET BY MOUTH IN THE MORNING. TAKE BEFOREMEALS. omeprazole (PRILOSEC) 40 mg, Oral, Every 24 hours Potassium Gluconate 595 (99 K) MG tablet 1 tablet, Oral, Daily RT rOPINIRole (Requip) 4 MG tablet Every 24 hours SUMAtriptan (IMITREX) 50 mg, Oral, Once as needed topiramate (Topamax) 200 MG tablet TAKE 1 TABLET BY MOUTH IN THE MORNING AND 2 TABLETS IN THE EVENING venlafaxine XR (EFFEXOR XR) 75 mg, Oral, Daily, Take with food. zolpidem (AMBIEN) 10 mg, Oral, Nightly PRN PHYSICAL EXAM: Shoulder Musculoskeletal Exam Inspection Right Right shoulder inspection is normal. Ecchymosis: none Peripheral edema: none Atrophy: none Masses: none Palpation Right Crepitus comment: minimal Increased warmth: none Tenderness: present Posterior shoulder: mild AC joint: mild Sternoclavicular joint: none Rotator cuff: mild Trapezius: moderate Trapezius comment: + pain right paracercial and occipital/ cervical junction. worse with looking toleft with limited rom. Superior pole of scapula: none Inferior pole of scapula: none Bicipital groove: none Proximal biceps: none Distal biceps: none Lateral arm: mild Elbow: none Elbow comment: + tinnels at cubital tunnel. + elbow flexion test on right. negative on left. Range of Motion Right Right shoulder range of motion is normal. Active ROM: normal. Passive ROM: normal and pain. Passive ROM comment: pain present on end rom with stretching.. Right shoulder active abduction: + pain passing 90 degrees. Active internal rotation behind the back: limited to SI joint. Strength Right External rotation: 5/5. Internal rotation: 5/5. Abduction: 4/5. Abduction is affected by pain. Biceps: 5/5. Triceps: 5/5. Neurovascular Right Radial pulse: normal and 2+ Capillary refill: <3 sec Axillary nerve sensory distribution: normal Scapula Right Right shoulder scapula is normal. Position: normal Winging: none Special Tests Right Rotator Cuff Signs Neer's test: positive Burton test: positive Painful arc test: positive Drop arm test: negative Biceps/marko Signs Speed's test: negative AC Joint Signs Active horizontal adduction pain: negative Special tests additional comments: Reflexes 2+ symmetric biceps/ triceps and brachial radialis. General Constitutional: appears stated age Neurological: alert and oriented x3 Vitals: There is no height or weight on file to calculate BMI. Tobacco Use: Low Risk (11/03/2024) Patient History Smoking Tobacco Use: Never Smokeless Tobacco Use: Never Passive Exposure: Not on file Alcohol Use: Not on file IMAGING: Procedures Orders Placed This Encounter Procedures XR shoulder 2+ views right Order Specific Question: Reason for exam: Answer: PAIN ASSESSMENT: ICD-10-CM 1. Acute pain of right shoulder M25.511 XR shoulder 2+ views right 2. Arthritis of right shoulder region M19.011 3. Arthritis of right acromioclavicular joint M19.011 4. Impingement of right shoulder M25.811 Assessment & Plan 1. Right shoulder pain. The x-ray results indicate mild to moderate glenohumeral arthritis and arthritis at the AC joint. Her shoulder pain, though minimal on examination, is only reproducible at the end range of motion. There is no evidence of frozen shoulder. She is not ready for a shoulder replacement surgery and is aware that she does have some weakness in her rotator cuff regarding her shoulder. A subacromial injection was administered today to assess its impact on her symptoms. Complaint of pain appear to localized occipital cervical region 2. Paresthesia in the right upper extremity. The paresthesia appears to be more related to cubital tunnel syndrome, with symptoms intermittentlyaffecting the little finger and ring finger. Towel rolls at bedtime have been recommended. She has a scheduled follow-up with her neurologist next week. If symptoms persist, an EMG may be considered for further evaluation, given her concerns of neck pain. 3. Cervical pain. Her cervical pain appears myofascial, with no current radicular symptoms related to her MRI. She experiences pain in the right occipital region of her neck and right levator scapulae, trapezial muscles with movement of her neck to the left. The pain is reproducible with positioning. A myofascial etiology is suspected. She is currently on disability following brain tumor surgery with titanium plate implantation. She has previously discussed injections with her neurologist. 4. Migraines. She has been experiencing migraines since her brain tumor surgery and is under the care of her neurologist, with an appointment scheduled for next week. PROCEDURE A subacromial injection was administered today to assess its impact on her symptoms. Questions answered in laymen terms at the bedside. The diagnosis, home exercise plan and any ongoing restrictions/ recommendations reviewed. If unable to be reached in office, I recommend evaluation at nearest Emergency Room if any symptoms worsened or new symptoms develop for requiring urgent evaluation. documented in this encounterFreeman Orthopaedics & Sports [id number] Telephone encounter Note* Telephone Encounter - Thi Alexander MA - 11/01/2024 11:01 AM EST She is taking the Atorvastatin, she also would like to see an ENT , having issues with nose bleeds like crazy. [facility] [id number] Miscellaneous Notes* Telephone Encounter - Thi Alexander MA - 11/01/2024 11:01 AM EST She is taking the Atorvastatin, she also would like to see an ENT , having issues with nose bleeds like crazy. documented in this [facility]01-15-2025 History of Present illness Narrative* Daniel Sanchez NP - 10/25/2024 9:16 AM ESTAssociated Problem(s): Hypertension (CMS/HCC) Currently taking verapamil 120mg Checks BP at home; Averages are in the low 1teens to 100's.; BP is too tightly controlled. Will discontinue Verapamil today. Denies orthostatic changes, dizziness, cough, shortness of breath, swelling in extremities. Given BP log, advised pt to record BP and bring log back with them to next visit. * Daniel Sanchez NP - 10/25/2024 9:16 AM ESTAssociated Problem(s): Dyslipidemia (CMS/HCC) Currently taking atorvastatin 20mg Denies any myalgias. Check Lipid Panel today. Continue current regimen. * Daniel Sanchez NP - 10/25/2024 9:15 AM ESTAssociated Problem(s): Major depressive disorder, recurrent episode, moderate (CMS/HCC) Stopped taking Effexor 150mg abruptly. States she didn't believe she needed it any longer Has been following with [facility] for therapy/counseling. Denies SI/HI; Would like to go back on Effexor today. Will restart at 75mg. Re-evaluate in 6 weeks. * Daniel Sanchez NP - 10/25/2024 8:00 AM EST Images from the original note were not included. Subjective Patient ID: Autumn Brandt is a 59 y.o. female who presents for Follow-up. HPI Specialists: Neurology- Dr. Figueroa, VALERIE HUGHES- Denise Diehl APRN, [employer] [employer] HTN: Currently taking verapamil 120mg Checks BP at home; Averages are in the low 1teens to 100's.; BP is too tightly controlled. Will discontinue Verapamil today. Denies orthostatic changes, dizziness, cough, shortness of breath, swelling in extremities. Given BP log, advised pt to record BP and bring log back with them to next visit. HLD: Currently taking atorvastatin 20mg Denies any myalgias. Check Lipid Panel today. Continue current regimen. Anxiety/Depression: Stopped taking Effexor 150mg abruptly. States she didn't believe she needed it any longer Has been following with [facility] for therapy/counseling. Denies SI/HI; Would like to go back on Effexor today. Will restart at 75mg. Re-evaluate in 6 weeks. Review of Systems Constitutional: Negative for activity change, appetite change, chills, diaphoresis, fatigue, fever and unexpected weight change. HENT: Negative for congestion, ear pain, rhinorrhea, sinus pressure, sinus pain, sneezing, sore throat, trouble swallowing and voice change. Eyes: Negative for visual disturbance. Respiratory: Negative for cough, chest tightness, shortness of breath and wheezing. Cardiovascular: Negative for chest pain, palpitations and leg swelling. Gastrointestinal: Negative for abdominal distention, abdominal pain, blood in stool, constipation, diarrhea and vomiting. Genitourinary: Negative for decreased urine volume, dysuria, flank pain, frequency, hematuria and urgency. Musculoskeletal: Negative for arthralgias, gait problem, joint swelling and myalgias. Skin: Negative for rash. Neurological: Negative for dizziness, tremors, syncope, weakness, light- headedness and headaches. Psychiatric/Behavioral: Negative for decreased concentration and suicidal ideas. The patient is notnervous/anxious. Hematological: Does not bruise/bleed easily. Endocrine: Negative for cold intolerance, heat intolerance, polydipsia, polyphagia and polyuria. Objective Physical Exam Vitals reviewed. Constitutional: Appearance: Normal appearance. HENT: Right Ear: Tympanic membrane normal. Left Ear: Tympanic membrane normal. Nose: Nose normal. Mouth/Throat: Mouth: Mucous membranes are moist. Pharynx: Oropharynx is clear. Eyes: Pupils: Pupils are equal, round, and reactive to light. Cardiovascular: Rate and Rhythm: Normal rate and regular rhythm. Pulses: Normal pulses. Heart sounds: Normal heart sounds. Pulmonary: Effort: Pulmonary effort is normal. Breath sounds: Normal breath sounds. Abdominal: General: Abdomen is flat. Bowel sounds are normal. Palpations: Abdomen is soft. Musculoskeletal: General: Normal range of motion. Skin: General: Skin is warm and dry. Capillary Refill: Capillary refill takes less than 2 seconds. Neurological: Mental Status: She is alert and oriented to person, place, and time. Assessment/Plan Problem List Items Addressed This Visit Cervical spondylosis without myelopathy Relevant Medications cyclobenzaprine (Flexeril) 10 MG tablet Potassium Gluconate 595 (99 K) MG tablet Dyslipidemia (CMS/HCC) Currently taking atorvastatin 20mg Denies any myalgias. Check Lipid Panel today. Continue current regimen. Hypertension (CMS/HCC) Currently taking verapamil 120mg Checks BP at home; Averages are in the low 1teens to 100's.; BP is too tightly controlled. Will discontinue Verapamil today. Denies orthostatic changes, dizziness, cough, shortness of breath, swelling in extremities. Given BP log, advised pt to record BP and bring log back with them to next visit. Major depressive disorder, recurrent episode, moderate (CMS/HCC) - Primary Stopped taking Effexor 150mg abruptly. States she didn't believe she needed it any longer Has been following with [facility] for therapy/counseling. Denies SI/HI; Would like to go back on Effexor today. Will restart at 75mg. Re-evaluate in 6 weeks. Relevant Medications venlafaxine XR (Effexor XR) 75 MG 24 hr capsule documented in this [facility]01-15-2025 Instructions* Patient Instructions* Daniel Sanchez NP - 10/25/2024 8:00 AM EST STOP verapamil. Continue to monitor BP once daily. Bring log with you to next OV. documented in this [facility]12-31-2024 History of Present illness Narrative* Bravo Goode NP - 10/10/2024 12:00 PM ESTAssociated Problem(s): Migraine with aura, intractable, with status migrainosus (CMS/HCC) (Continue current regimen.) Pt/husb asked for handicapped placard. Explained that the diagnoses I treat do not qualify her for this. Orders: SUMAtriptan (Imitrex) 50 MG tablet; Take 1 tablet (50 mg) by mouth 1 (one) time if needed for migraine * Bravo Goode NP - 10/10/2024 12:00 PM ESTAssociated Problem(s): Insomnia, psychophysiological (Continue current regimen.) * Bravo Goode NP - 10/10/2024 12:00 PM ESTAssociated Problem(s): Poor sleep hygiene Sleep hygiene improvements as discussed. * Bravo Goode NP - 10/10/2024 12:00 PM ESTAssociated Problem(s): RICHA (obstructive sleep apnea) (Continue current regimen.) Download now, then before appt. Get old sleep studies - Newman somewhere. Try a humidifier in [place] * Bravo Goode NP - 10/10/2024 12:00 PM ESTAssociated Problem(s): Family history of cerebral aneurysm Plan CTA head 2028. * Bravo Goode NP - 10/10/2024 12:00 PM ESTAssociated Problem(s): RLS (restless legs syndrome) Consider SL B12. - PCP managing documented in this [facility]12-16-2024 Telephone encounter Note* Telephone Encounter - Thi Alexander MA - 09/25/2024 2:11 PM EST CHIN:08/14/2024 NOV:11/08/2024 [facility] Sports [id number] Miscellaneous Notes* Telephone Encounter - Thi Alexander MA - 09/25/2024 2:11 PM EST CHIN:08/14/2024 NOV:11/08/2024 documented in this [facility]12-11-2024 Telephone encounter Note* Telephone Encounter - Nguyễn Garcia - 09/20/2024 11:14 AM EST Autumn would like a call when you have a moment please , [facility] [id number] Miscellaneous Notes* Telephone Encounter - Nguyễn Garcia - 09/20/2024 11:14 AM EST Autumn would like a call when you have a moment please , documented in this encounterFreeman Orthopaedics & Sports [id number] History of Present illness Narrative* Vera Schrader Emilia, [facility] - 09/18/2024 8:30 AM EST Images from the original note were not included. Subjective Patient ID: Autumn Brandt is a 58 y.o. female. RT sided neck pain x 5 months (04/2024), tripped in her yard and fell. Has been tx by [facility] pain management since 05/23/24 with XR, MRI, PT at [facility], Bilateral C3/4 4/5 Facet Injection/Medial Branch Block 07/14 and Right C3/4, 4/5 Facet Injection/Medial Branch Block 09/01. Notes maybe 20% relief from injections. She has not seen a neurosurgeon, not had a massage or chiropractor. Has also seen PCP and was given flexeril. Notes diffuse pain on RT side of neck and down to scapula. States it is now radiating into head, just above ears. Notes as throbbing pain. Denies radiation down arm. Taking flexeril with no relief. Taking TYL. Using voltaren, no relief. Has tried tens unit, made it worse. Has tried heat, some relief. Denies N/T. States she feels a lump on RT side of neck. Wakes pt at HS, can hardly sleep. Has to stay moving. Limited ROM. Stiffness. Pain is 10+/10 today. Denies HEP, states it is too painful. Hx occipital nerve stimulation put in for migraines (has had 4 of them). Has been taken out due to them not helping. Prior tx: Voltaren gel, IBU, meloxicam (no longer taking), TYL, XR [facility] 06/08/24, MRI [facility] 06/14/24, PT at [facility], HEP, Bilateral C3/4 4/5 Facet Injection/Medial Branch Block 07/14/24, Right C3/4, 4/5 Facet Injection/Medial Branch Block 09/01/24 Here with , [employer] I did not exam patient today, she was having a lot of pain. Would recommend she see neurosurgery. I reviewed the xrays of the c-spine done at [facility] on 06/08/24 reveals B/L facet arthritis. I reviewed the MRI of the c-spine done on 06/14/24 at [facility] reveals Notable asymmetric right C3-C4 posterior facet arthropathy with surrounding soft tissue and marrow edema. Additional multilevel significant neural foraminal narrowing as detailed. I reviewed pain managements note from 09/01/24, she had gotten relief for a few hours 100, then 50 for a few days, then back to baseline Assessment/Plan Encounter Diagnoses: ICD-10-CM 1. Cervical pain M54.2 2. Cervical arthritis M47.[address] Ab lopez, her has seen him in the past and has had surgery with him,f/U prn MRI was merged to [facility] documented in this encounterFreeman Orthopaedics & Sports [id number] History of Present illness Narrative* Daniel Sanchez NP - 08/16/2024 5:12 PM ESTAssociated Problem(s): High cholesterol (CMS/HCC) Currently taking atorvastatin 20mg Denies any myalgias. Check Lipid Panel today. Continue current regimen. * Daniel Sanchez NP - 08/16/2024 5:11 PM ESTAssociated Problem(s): Hypertension (CMS/HCC) Currently taking verapamil 120mg Checks BP at home; Averages are 130's; Bp is good in office today. Denies orthostatic changes, dizziness, cough, shortness of breath, swelling in extremities. Continue current regimen. Given BP log, advised pt to record BP and bring log back with them to next visit. * Daniel Sanchez NP - 08/16/2024 5:10 PM ESTAssociated Problem(s): Acute cystitis without hematuria Was seen at [facility] on 08/02/2024 for UTI symptoms. Was treated with Keflex X7 days. Completed treatment on 08/09 Reports today symptoms: Admits: Morning urgency Denies: Burning with urination Odor in urine Blood in urine UA in office today was negative. * Daniel Sanchez NP - 08/14/2024 4:00 PM EST Images from the original note were not included. Subjective Patient ID: Autumn Brandt is a 58 y.o. female who presents for No chief complaint on file.. HPI Was seen at [facility] on 08/02/2024 for UTI symptoms. Was treated with Keflex X7 days. Completed treatment on 08/09 Reports today symptoms: Admits: Morning urgency Denies: Burning with urination Odor in urine Blood in urine UA in office today was negative. Requests refill of medications. Refills sent in Review of Systems Constitutional: Negative for activity change, appetite change, chills, diaphoresis, fatigue, fever and unexpected weight change. HENT: Negative for congestion, ear pain, rhinorrhea, sinus pressure, sinus pain, sneezing, sore throat, trouble swallowing and voice change. Eyes: Negative for visual disturbance. Respiratory: Negative for cough, chest tightness, shortness of breath and wheezing. Cardiovascular: Negative for chest pain, palpitations and leg swelling. Gastrointestinal: Negative for abdominal distention, abdominal pain, blood in stool, constipation, diarrhea and vomiting. Genitourinary: Negative for decreased urine volume, dysuria, flank pain, frequency, hematuria and urgency. Musculoskeletal: Negative for arthralgias, gait problem, joint swelling and myalgias. Skin: Negative for rash. Neurological: Negative for dizziness, tremors, syncope, weakness, light- headedness and headaches. Psychiatric/Behavioral: Negative for decreased concentration and suicidal ideas. The patient is notnervous/anxious. Hematological: Does not bruise/bleed easily. Endocrine: Negative for cold intolerance, heat intolerance, polydipsia, polyphagia and polyuria. Objective Physical Exam Vitals reviewed. Constitutional: Appearance: Normal appearance. HENT: Head: Normocephalic and atraumatic. Right Ear: Tympanic membrane normal. Left Ear: Tympanic membrane normal. Nose: Nose normal. Mouth/Throat: Mouth: Mucous membranes are moist. Pharynx: Oropharynx is clear. Eyes: Pupils: Pupils are equal, round, and reactive to light. Cardiovascular: Rate and Rhythm: Normal rate and regular rhythm. Pulses: Normal pulses. Heart sounds: Normal heart sounds. Pulmonary: Effort: Pulmonary effort is normal. Breath sounds: Normal breath sounds. Abdominal: General: Abdomen is flat. Bowel sounds are normal. Palpations: Abdomen is soft. Musculoskeletal: General: Normal range of motion. Cervical back: Normal range of motion. Skin: General: Skin is warm and dry. Capillary Refill: Capillary refill takes less than 2 seconds. Neurological: General: No focal deficit present. Mental Status: She is alert and oriented to person, place, and time. Psychiatric: Mood and Affect: Mood normal. Behavior: Behavior normal. Assessment/Plan Problem List Items Addressed This Visit Dyslipidemia (CMS/HCC) Relevant Orders Lipid panel (Completed) Comprehensive metabolic panel (Completed) CBC and differential (Completed) High cholesterol (CMS/HCC) Currently taking atorvastatin 20mg Denies any myalgias. Check Lipid Panel today. Continue current regimen. Hypertension (CMS/HCC) Currently taking verapamil 120mg Checks BP at home; Averages are 130's; Bp is good in office today. Denies orthostatic changes, dizziness, cough, shortness of breath, swelling in extremities. Continue current regimen. Given BP log, advised pt to record BP and bring log back with them to next visit. Relevant Orders TSH W/REFLEX TO FT4 (Completed) Comprehensive metabolic panel (Completed) CBC and differential (Completed) RICHA (obstructive sleep apnea) Relevant Orders Comprehensive metabolic panel (Completed) CBC and differential (Completed) Acute cystitis without hematuria - Primary Was seen at [facility] on 08/02/2024 for UTI symptoms. Was treated with Keflex X7 days. Completed treatment on 08/09 Reports today symptoms: Admits: Morning urgency Denies: Burning with urination Odor in urine Blood in urine UA in office today was negative. * Daniel Sanchez NP - 08/14/2024 4:00 PM EST Images from the original note were not included. Subjective Patient ID: Autumn Brandt is a 58 y.o. female who presents for No chief complaint on file.. HPI Review of Systems Objective Physical Exam Assessment/Plan documented in this encounterFreeman Orthopaedics & Sports [id number] History of Present illness Narrative* Denise Diehl, MEGAN-SHEEP FARM MANAGER - 08/15/2024 8:30 AM EST [facility] [address] [place] [address] Patient: Autumn Brandt Sex: female : 1965 Age: 58 y.o. PCP: BAYLEE Power 08/15/2024 Autumn Brandt is here for a(n) post procedure follow up bilateral C 3/4 4/5 MBB with 100% relief for three hours followed by 50% relief for two days, returning to baseline on day three. Patient states pain is 8/10 currently and can increase to 10/10 when turning head to the right. No pain on the left. Reports numbness and tingling down the right arm into hand and fingers. Patient states completed 5 PT visits and was given home exercises to do at home that has seemed to help. Date of onset of pain: April 2024 , pain has lasted greater than 3 months. Pain scale before treatment: 8/10 Pre-op pain score: 8/10 Post-op pain score: 10/10 2 hour post-op pain score: 0/10 4 hour post-op pain score: 0/10 Percentage of relief after and duration: 100% relief for three hours followed by 50% relief for twodays, returning to baseline on day three Pain scale after treatment: 8/10 Chief Complaint Patient presents with Neck Pain HPI: PT July 2024 5 visits completed [facility] no relief 07/14/24 Bilateral C 3/4 4/5 MBB 100% relief for three hours followed by 50% relief for two days, returning to baseline on day three Continued 100% relief on the left Neck Pain This is a chronic (2005) problem. Episode onset: April 2024. The problem occurs constantly. The problem has been gradually worsening. Associated with: tripped in yard and fell. The pain is present in the midline, right side and occipital region (right shoulder). The quality of the pain is described as aching, stabbing, shooting, burning and cramping. Pain scale: 8/10 currently but increases to 10/10 when moving neck to the right. The pain is moderate. The symptoms are aggravated by twisting, stress, sneezing, position, coughing and bending (moving head up, down, left, right, hyperextension). Worse during: worse in both night and during day. Stiffness is present In the morning (depends on frequent movement of neck). Associated symptoms include numbness (right side neck to right arm and intofingers), photophobia, tingling (right side neck to right arm and into fingers) and weakness (rightarm). Pertinent negatives include no chest pain or fever. Treatments tried: Voltaren gel, NSAIDs (ibuprofen, meloxicam), tylenol with minimal, Cervical RFA with mod relief. The effect of pain on patient's ADLS: Moderate Impairment. Past Medical History: Diagnosis Date Anxiety Asthma Brain tumor (benign) ([facility]) Carpal tunnel syndrome Chronic pain neck and back Coronary artery disease Depression GERD (gastroesophageal reflux disease) Headache(784.0) High cholesterol Hypertension Hypothyroidism Migraine Neck pain Neurologic abnormality New onset seizure ([facility]) 06/29/2019 Sleep apnea 2019 Past Surgical History: Procedure Laterality Date CARPAL TUNNEL RELEASE Bilateral CARPAL TUNNEL RELEASE Bilateral 2002,2003 CRANIOTOMY Right parietal, for benign tumor ESOPHAGOGASTRODUODENOSCOPY N/A 03/02/2023 Performed by Jaswant Gibbons DO at [facility] INJECTION BLOCK NERVE MEDIAL BRANCH BILAT C 12/12, 4/ Bilateral 07/14/2024 Performed by Pb Prasad MD at [facility] RADIO FREQUENCY ABLATION - Right C2/3, C3/4 RFA Right 03/12/2017 Performed by Pb Prasad MD at [facility] REDU[facility] MAMMAPLASTY Bilateral 10/11/2006 SPINAL CORD STIMULATOR IMPLANT SPINAL CORD STIMULATOR REMOVAL TONSILLECTOMY TONSILLECTOMY TUBAL LIGATION Allergies Allergen Reactions Ketorolac Hives and Hallucinations Promethazine Hcl Hives Tizanidine Hives Codeine Rash Sulfa (Sulfonamide Antibiotics) Hives and Rash Sulfamethoxazole-Trimethoprim Rash Family History Problem Relation Age of Onset Cerebral aneurysm Mother Restless legs syndrome Mother Aneurysm Mother Prostate cancer Father Ovarian cancer Maternal Aunt Ovarian cancer Maternal Aunt Ovarian cancer Maternal Aunt Ovarian cancer Maternal Aunt Social History Socioeconomic History Marital status: Spouse name: Not on file Number of children: Not on file Years of education: Not on file Highest education level: Not on file Occupational History Not on file Tobacco Use Smoking status: Never Smokeless tobacco: Never Vaping Use Vaping status: Never Used Substance and Sexual Activity Alcohol use: No Comment: social Drug use: Yes Types: Marijuana Comment: medical card Sexual activity: Defer Partners: Male Other Topics Concern Not on file Social History Narrative Not on file Social Drivers of Health Financial Resource Strain: Not on file Food Insecurity: No Food Insecurity (08/15/2024) Hunger Screening Food Insecurity - Worry: Never True Food Insecurity - Inability: Never True Transportation Needs: Not on file Physical Activity: Not on file Stress: Not on file Social Connections: Not on file Interpersonal Safety: Not on file Housing Instability: Not on file Review of Systems Constitutional: Negative. Negative for chills, fatigue and fever. HENT: Negative. Negative for congestion and sore throat. Eyes: Positive for photophobia and pain. Respiratory: Negative. Negative for cough and shortness of breath. Cardiovascular: Negative. Negative for chest pain and palpitations. Gastrointestinal: Negative. Negative for abdominal pain. Endocrine: Negative. Genitourinary: Negative. Musculoskeletal: Positive for neck pain. Skin: Negative. Allergic/Immunologic: Negative. Neurological: Positive for tingling (right side neck to right arm and into fingers), weakness (right arm) and numbness (right side neck to right arm and into fingers). Hematological: Negative. Psychiatric/Behavioral: Negative. Vital Signs: BP 111/61 (BP Site: Right Arm, BP Postition: Sitting) Pulse 72 Resp 18 Ht 165.1 cm (5' 5 ) Wt 75 kg (165 lb 6.4 oz) LMP (LMP Unknown) SpO2 99% BMI 27.52 kg/m Physical Exam: GENERAL - Healthy patient that appears stated age. HEENT - Normocephalic / Atraumatic, Extraoccular movements intact, trachea midline, thyroid within normal limits. CV - pulse regular, Warm extremities with appropriate color of nailbeds. RESP - No obvious wheezing, No Shortness of Breath, No overexertion response to exam maneuvers. COORDINATION - remains intact. PSYCH - Alert and Oriented x4, Attentive and appropriate, constitutionally normal, displays normal mood and affect per situation, answered questions appropriately during examination, demonstrated appropriate attention during discussion, demonstrated appropriate cognitive reasoning and understandingof the medical condition by asking appropriate questions regarding the diagnosis and risks/benefits/alternatives of treatment modalities. No obvious deficits in memory, reasoning, or intellect. Cervical: SKIN - No rashes or bruising in the area of the patient s pain. LYMPH NODES - demonstrate no obvious enlargement. EXTREMITIES - Upper extremities are warm, with minimal edema and palpable pulses. Tenderness to palpation noted in the right cervical spine and paraspinal musculature. Pain is elicited with flexion, extension, and lateral rotation of the right cervical spine. Range of motion is diminished with these motions due to pain. Facet palpation is noted to be painful and concordant with the patient s normal pain complaints. STRENGTH - noted to be 5 out of 5 all muscle groups bilateral upper extremities including muscles involving shoulder flexion and abduction, elbow flexion and extension, as well as wrist flexion and extension and intrinsic muscles of the hand. No notable atrophy, fasciculations or spasm. SENSORY - No notable sensory deficits in the bilateral upper extremities to touch or pinprick in all dermatomal distributions. Spurlings sign is negative. Assessment/Treatment Plan: Jacque was seen today for neck pain. Diagnoses and all orders for this visit: Cervical spondylosis without myelopathy - Case request operating room: INJECTION BLOCK NERVE MEDIAL BRANCH RIGHT C3/4, C4/5 MBB Right C3/4, 4/5 Facet Injection/Medial Branch Block - under fluoroscopy It is hopeful that the described procedure will provide symptomatic pain relief. It is felt to be medically necessary noting that the patient has tried and failed more conservative modalities of therapy and this is the next most appropriate step. The procedure was described in detail to the patientas well as the potential benefits of pain reduction alongside risks of the procedure and alternatives. Risks were described as including, but not limited to bleeding, infection, nerve damage, spinal cord injury, paralysis, stroke, dural puncture headache, and medication reaction. The patient expressed understanding regarding the risks and benefits and wishes to proceed. Diagnostic facet injections and medial branch blocks should provide information to confirm that thenoted facet arthropathy is the patient s most significant pain generator. If this provides significant but only temporary pain relief, the patient may in the future be a candidate for radiofrequency denervation of the facet joints to provide pain relief for approximately 1 year. Follow up 2 weeks after procedure The medications I have prescribed have been reviewed for medication interactions/contraindications and/or for upcoming procedures: continue current medication regimen without any changes. DISCUSSION: Treatment options discussed with patient and all questions answered to patient's satisfaction. Discussed the rules and regulations surrounding prescription of opioids and compliance at length. Failure to follow the rules and regulation will result in tapering and discontinuation of medications if applicable. Prescribed medication that requires intensive monitoring for toxicity We do not currently prescribeany controlled substance from this practice. The spine model was demonstrated and MRI was reviewed and used to explain the condition. Chronic conditions not treated during this visit that affected my overall medical decision making: Comorbidity- Sleep Apnea The patient has a history of obstructive sleep apnea. Due to this reason, special consideration will need to be given to the prescription of narcotics in that they may depress respiratory function and lead to respiratory insufficiency or failure. Consideration will also be given to procedure safetyin that sedation is used in the outpatient setting for any planned procedure. These records will beavailable to the anesthesiologist to tailor a safe anesthetic for the procedure. The patient will also be observed closely in the recovery area and may even require admission if they remain overly sedated for an extended period of time and cannot maintain an airway. These preparations will be made as necessary. Comorbidity- Anxiety The patient describes a significant issue with anxiety. Although treatment is helpful with this regard, the patient is likely need special accommodation due to this condition. For this reason, necessary procedures will likely need to be performed under sedation to decrease procedural anxiety. Comorbidity- Depression The patient has an ongoing issue with depression and currently feels these symptoms are under control and further feels that appropriate pain management would also help these symptoms. The patient isoptimistic about the treatment plan we have laid out. We will continue to monitor these symptoms and remain cogniscent that they may affect the patients perceived improvement from the treatment and willingness to pursue further treatment. At this time the patient appears to be mentally and emotionally stable to undergo procedural and medical therapy. If any warning signs become present, I may refer the patient to a mental health professional for further evaluation. OARRS: Reviewed. Scribe Statement: Scribed for and in the presence of BAYLEE URENA by Jacque Lanza CNA. Provider Statement: IDENISE APRN-CNP, personally performed the services described in the documentation,as scribed by Jacque Lanza CNA in my presence, and it is both accurate and complete. Jacque Lanza CNA 08/15/24 0855 BAYLEE Urena 08/15/24 0903 documented in this encounterDayton Osteopathic Hospital11-05-2024 Instructions* Patient Instructions* Jacque Lanza CNA - 08/15/2024 8:30 AM EST Facet Injection / Medial Branch Block (MBB) / Sacroiliac (SI) Joint Injection / Cluneal NB A facet injection and sacroiliac joint injection are injections of local anesthetic and steroid into a joint in the spine. A medial branch block is similar, but the medication is placed outside the joint space near the nerve that supplies the joint called the medial branch (steroid may or may not be used). You may require multiple injections depending upon how many joints are involved. How Long Will This Procedure Last? The extent and duration of pain relief may depend on the amount of inflammation and how many areas are involved. Other coexisting factors may be responsible for your pain. If your pain goes away for a short time, but then returns, you may be a candidate for radiofrequency ablation (RFA). Activity Be active. Attempt activities and movements that typically cause pain to see if it feels better while doing them. We will give you a pain diary. Please fill this out as directed by your nurse in pre-op. This will help your doctor determine the effectiveness of the injection, and how to proceed. Bring the pain diary with you to your follow-up appointment. Medications You should not take your pain medications for 4-6 hours before or after the injection in order to properly diagnose if the injection provides adequate relief. Resume your routine medications after your procedure. You may resume blood thinners per your regular schedule after the procedure. If you received sedation: If you received sedation for your procedure, you may feel sleepy or not yourself for several hours today. For the next 24 hours avoid activities that requires alertness or coordination. This includes: Driving or operating heavy machinery Using power tools Consuming alcohol Do not make important or complex decisions or sign legal documents in the next 24 hours. Other Instructions: If you feel severe pain at the injection site with swelling and redness, increased leg weakness, a fever of 101 or higher, headache (or worsening headache), changes in vision or urinary retention: Please call the office at , or have someone take you to the nearest emergency room. Tellthe emergency room staff that you recently had a spine injection. A doctor must evaluate you for bleeding and injection complications. If you lose control over bowel, bladder, or legs: Go to the nearest emergency room. documented in this encounterDayton Osteopathic Hospital11-04-2024 Instructions* Patient Instructions* Daniel Sanchez NP - 08/14/2024 4:00 PM EST FASTING labs ordered. Nothing to eat or drink for 12 hours prior to blood draw. Water and black coffee ok. documented in this encounterFreeman Orthopaedics & Sports [id number] Evaluation note* Diagnosis Onset Date Resolution Status Admit Date UTI (urinary tract infection) acuteOctober 2023 2:34pmViral URI with coughacuteDecember 2023 5:09pm Neck painacuteJanuary 2024 1:33pm [facility] Work Phone: 1(113) 968-487010-14-2024 Telephone encounter Note* Telephone Encounter - Eva Mcfadden - 07/24/2024 5:47 PM EDT 35.00 co pay with unlimited visits No deductible Out of pocket is 4500 and 932.84 is met Checked on availity Scheduled with Ricarda Ty [facility]ics & Sports [id number] Miscellaneous Notes* Telephone Encounter - Eva Mcfadden - 07/24/2024 5:47 PM EDT 35.00 co pay with unlimited visits No deductible Out of pocket is 4500 and 932.84 is met Checked on availity Scheduled with Ricarda Ty documented in this encounterFreeman Orthopaedics & Sports [id number] History of Present illness Narrative* Daniel Sanchez NP - 07/17/2024 3:50 PM EDTAssociated Problem(s): Major depressive disorder, recurrent episode, moderate (CMS/HCC) Currently taking Effexor 150mg; Does not attend therapy or counseling. Denies SI/HI; Feels symptoms are more prominent since she stopped drinking alcohol. Is agreeable to therapy at this time. Referral sent to . * Daniel Sanchez NP - 07/17/2024 3:47 PM EDTAssociated Problem(s): Hypertension (CMS/HCC) Currently taking verapamil 120mg Checks BP at home; Averages are 140's; Bp is good in office today. Denies orthostatic changes, dizziness, cough, shortness of breath, swelling in extremities. Continue current regimen. Given BP log, advised pt to record BP and bring log back with them to next visit. * Daniel Sanchez NP - 07/17/2024 3:47 PM EDTAssociated Problem(s): High cholesterol (CMS/HCC) Currently taking atorvastatin 20mg Denies any myalgias. Check Lipid Panel today. Continue current regimen. * Daniel Sanchez NP - 07/17/2024 3:47 PM EDTAssociated Problem(s): RICHA (obstructive sleep apnea) Wears CPAP religiously. Follows with Neurology for CPAP management. Feels symptoms are well controlled at this time. * Daniel Sanchez NP - 07/17/2024 3:46 PM EDTAssociated Problem(s): Anxiety Currently taking Effexor 150mg; Does not attend therapy or counseling. Denies SI/HI; Feels symptoms are more prominent since she stopped drinking alcohol. Is agreeable to therapy at this time. * Daniel Sanchez NP - 07/17/2024 2:59 PM EDTAssociated Problem(s): Alcohol abuse States she quit drinking alcohol 2 months ago 'cold turkey.' Feels anxiety/depression has worsened slightly since. Referral sent to . * Daniel Sanchez NP - 07/17/2024 2:24 PM EDTAssociated Problem(s): Wellness examination I have reviewed Ht/Wt/BMI, I have reviewed [...] GOAL 6-8 hours of sleep per night. * Daniel Sanchez NP - 07/17/2024 2:00 PM EDT Images from the original note were not included. Subjective Patient ID: Autumn Brandt is a 58 y.o. female who presents for [facility]. HPI Specialists: Neurology- Dr. Figueroa, VALERIE Estrada PM- Denise Diehl, MEGAN, URBAN FORESTER-[employer] HTN: Currently taking verapamil 120mg Checks BP at home; Averages are 140's; Bp is good in office today. Denies orthostatic changes, dizziness, cough, shortness of breath, swelling in extremities. Continue current regimen. Given BP log, advised pt to record BP and bring log back with them to next visit. HLD: Currently taking atorvastatin 20mg Denies any myalgias. Check Lipid Panel today. Continue current regimen. RICHA: Wears CPAP religiously. Does not follow with Pulmonology. Feels symptoms are well controlled at this time. Anxiety/Depression: Currently taking Effexor 150mg; Does not attend therapy or counseling. Denies SI/HI; Feels symptoms are more prominent since she stopped drinking alcohol. Is agreeable to therapy at this time. Alcohol Abuse, in remission- States she quit drinking alcohol 2 months ago 'cold turkey.' Feels anxiety/depression has worsened slightly since. Referral sent to . Review of Systems Constitutional: Negative for activity change, appetite change, chills, diaphoresis, fatigue, fever and unexpected weight change. HENT: Negative for congestion, ear pain, rhinorrhea, sinus pressure, sinus pain, sneezing, sore throat, trouble swallowing and voice change. Eyes: Negative for visual disturbance. Respiratory: Negative for cough, chest tightness, shortness of breath and wheezing. Cardiovascular: Negative for chest pain, palpitations and leg swelling. Gastrointestinal: Negative for abdominal distention, abdominal pain, blood in stool, constipation, diarrhea and vomiting. Genitourinary: Negative for decreased urine volume, dysuria, flank pain, frequency, hematuria and urgency. Musculoskeletal: Negative for arthralgias, gait problem, joint swelling and myalgias. Skin: Negative for rash. Neurological: Negative for dizziness, tremors, syncope, weakness, light- headedness and headaches. Psychiatric/Behavioral: Negative for decreased concentration and suicidal ideas. The patient is nervous/anxious. Hematological: Does not bruise/bleed easily. Endocrine: Negative for cold intolerance, heat intolerance, polydipsia, polyphagia and polyuria. Objective Physical Exam Vitals reviewed. Constitutional: Appearance: Normal appearance. HENT: Head: Normocephalic and atraumatic. Right Ear: Tympanic membrane normal. Left Ear: Tympanic membrane normal. Nose: Nose normal. Mouth/Throat: Mouth: Mucous membranes are moist. Pharynx: Oropharynx is clear. Eyes: Pupils: Pupils are equal, round, and reactive to light. Cardiovascular: Rate and Rhythm: Normal rate and regular rhythm. Pulses: Normal pulses. Heart sounds: Normal heart sounds. Pulmonary: Effort: Pulmonary effort is normal. Breath sounds: Normal breath sounds. Abdominal: General: Abdomen is flat. Bowel sounds are normal. Palpations: Abdomen is soft. Musculoskeletal: General: Normal range of motion. Cervical back: Normal range of motion. Skin: General: Skin is warm and dry. Capillary Refill: Capillary refill takes less than 2 seconds. Neurological: General: No focal deficit present. Mental Status: She is alert and oriented to person, place, and time. Psychiatric: Mood and Affect: Mood normal. Behavior: Behavior normal. Assessment/Plan Problem List Items Addressed This Visit Alcohol abuse States she quit drinking alcohol 2 months ago '.' Feels anxiety/depression has worsened slightly since. Referral sent to . Relevant Orders Ambulatory referral to Behavioral Health Anxiety Currently taking Effexor 150mg; Does not attend therapy or counseling. Denies SI/HI; Feels symptoms are more prominent since she stopped drinking alcohol. Is agreeable to therapy at this time. Relevant Orders Ambulatory referral to Behavioral Health Cervical spondylosis without myelopathy Relevant Medications cyclobenzaprine (Flexeril) 10 MG tablet Hypertension (CMS/HCC) Currently taking verapamil 120mg Checks BP at home; Averages are 140's; Bp is good in office today. Denies orthostatic changes, dizziness, cough, shortness of breath, swelling in extremities. Continue current regimen. Given BP log, advised pt to record BP and bring log back with them to next visit. Hypothyroidism (CMS/HCC) Major depressive disorder, recurrent episode, moderate (CMS/HCC) Currently taking Effexor 150mg; Does not attend therapy or counseling. Denies SI/HI; Feels symptoms are more prominent since she stopped drinking alcohol. Is agreeable to therapy at this time. Referral sent to . RICHA (obstructive sleep apnea) Wears CPAP religiously. Follows with Neurology for CPAP management. Feels symptoms are well controlled at this time. Wellness examination I have reviewed Ht/Wt/BMI, I have reviewed [...] day. Consider tracking your food intake on [employer] or L[employer]It Water: Increase water intake; GOAL [...] GOAL 6-8 hours of sleep per night. Relevant Medications atorvastatin (Lipitor) 20 MG tablet Other Relevant Orders TSH W/REFLEX TO FT4 Lipid panel Hemoglobin A1c Comprehensive metabolic panel CBC and differential Encounter for screening mammogram for malignant neoplasm of breast Relevant Orders Bilateral screening mammogram Other Visit Diagnoses Encounter to establish care - Primary documented in this encounterFreeman Orthopaedics & Sports [id number] Instructions* Patient Instructions* Daniel Sanchez NP - 07/17/2024 2:00 PM EDT FASTING labs ordered. Nothing to eat or drink for 12 hours prior to blood draw. Water and black coffee ok. Referral sent Behavioral Health- they will call you. Diet: Eat three meals per day. Breakfast, [...] GOAL 6-8 hours of sleep per night. documented in this encounterFreeman Orthopaedics & Sports [id number] Miscellaneous Notes* Telephone Encounter - Mary Piña RN - 07/12/2024 1:17 PM EDT Patient called office today to report that she scheduled one physical therapy appointment. Patient states at the PT visit, traction was used and the traction aggravated the pain. Patient is advised to notify the physical therapist and to avoid traction at time. She states she only scheduled the initial appointment. Patient is encouraged to follow up with PT so that she can be educated on exercises. [facility] Telephone encounter Note* Telephone Encounter - Mary Piña RN - 07/12/2024 1:17 PM EDT Patient called office today to report that she scheduled one physical therapy appointment. Patient states at the PT visit, traction was used and the traction aggravated the pain. Patient is advised to notify the physical therapist and to avoid traction at time. She states she only scheduled the initial appointment. Patient is encouraged to follow up with PT so that she can be educated on exercises. [facility]09-[facility] History of Present illness Narrative* Denise Bassett Jamey, WAREHOUSE SUPERVISOR-SHEEP FARM MANAGER - 06/27/2024 1:30 PM EDT [facility] [address] [place] [address] Patient: Autumn Brandt Sex: female : 1965 Age: 58 y.o. PCP: Mike Burkett, WAREHOUSE SUPERVISOR-SHEEP FARM MANAGER 06/27/2024 Autumn Brandt is here for a(n) follow up Cervical MRI. Patient has not started PT yet because shehas not received a call from them yet. States she is having right side neck pain and numbness that goes down arm into fingers. Pain is worse with any neck movements to the right. Chief Complaint Patient presents with Neck Pain HPI: Has not started physical therapy yet. Neck Pain This is a chronic (2005) problem. Episode onset: April 2024. The problem occurs intermittently. The problem has been gradually worsening. Associated with: tripped in yard and fell. The pain is presentin the midline, right side and occipital region. The quality of the pain is described as aching, stabbing, shooting, burning and cramping. Pain scale: 8/10 currently but increases to 10/10 when moving neck to the rightd. The pain is moderate. The symptoms are aggravated by twisting, stress, sneezing, position, coughing and bending (moving head up, down, left, right, hyperextension). Worse during:worse in both night and during day. Stiffness is present In the morning (depends on frequent movemen t of neck). Associated symptoms include numbness (right side neck to right arm and into fingers), photophobia and tingling (right side neck to right arm and into fingers). Pertinent negatives includeno chest pain or fever. Treatments tried: Voltaren gel, NSAIDs (ibuprofen, meloxicam), tylenol withminimal, Cervical RFA with mod relief. The effect of pain on patient's ADLS: Moderate Impairment. Past Medical History: Diagnosis Date Anxiety Asthma Brain tumor (benign) (CMS-HCC) Carpal tunnel syndrome Chronic pain neck and back Coronary artery disease Depression GERD (gastroesophageal reflux disease) Headache(784.0) High cholesterol Hypertension Hypothyroidism Migraine Neck pain Neurologic abnormality New onset seizure ([facility]-H[facility]) 06/29/2019 Sleep apnea 2020 Past Surgical History: Procedure Laterality Date CARPAL TUNNEL RELEASE Bilateral CARPAL TUNNEL RELEASE Bilateral 2002,2003 CRANIOTOMY Right parietal, for benign tumor ESOPHAGOGASTRODUODENOSCOPY N/A 03/02/2023 Performed by Jaswant Gibbons DO at [facility] RADIO FREQUENCY ABLATION - Right C2/3, C3/4 RFA Right 03/12/2017 Performed by Pb Prasad MD at [facility] MAMMAPLASTY Bilateral 10/11/2006 SPINAL CORD STIMULATOR IMPLANT SPINAL CORD STIMULATOR REMOVAL TONSILLECTOMY TONSILLECTOMY TUBAL LIGATION Allergies Allergen Reactions Ketorolac Hives and Hallucinations Promethazine Hcl Hives Tizanidine Hives Codeine Rash Sulfa (Sulfonamide Antibiotics) Hives and Rash Sulfamethoxazole-Trimethoprim Rash Family History Problem Relation Age of Onset Cerebral aneurysm Mother Restless legs syndrome Mother Aneurysm Mother Prostate cancer Father Ovarian cancer Maternal Aunt Ovarian cancer Maternal Aunt Ovarian cancer Maternal Aunt Ovarian cancer Maternal Aunt Social History Socioeconomic History Marital status: Spouse name: Not on file Number of children: Not on file Years of education: Not on file Highest education level: Not on file Occupational History Not on file Tobacco Use Smoking status: Never Smokeless tobacco: Never Vaping Use Vaping status: Never Used Substance and Sexual Activity Alcohol use: No Comment: social Drug use: Yes Types: Marijuana Comment: medical card Sexual activity: Defer Partners: Male Other Topics Concern Not on file Social History Narrative Not on file Social Determinants of Health Financial Resource Strain: Not on file Food Insecurity: No Food Insecurity (06/27/2024) Hunger Screening Food Insecurity - Worry: Never True Food Insecurity - Inability: Never True Transportation Needs: Not on file Physical Activity: Not on file Stress: Not on file Social Connections: Not on file Interpersonal Safety: Not on file Housing Instability: Not on file Review of Systems Constitutional: Negative for chills, fatigue and fever. HENT: Negative. Negative for congestion and sore throat. Eyes: Positive for photophobia and pain. Respiratory: Negative. Negative for cough and shortness of breath. Cardiovascular: Negative. Negative for chest pain and palpitations. Gastrointestinal: Negative. Negative for abdominal pain. Endocrine: Negative. Genitourinary: Negative. Musculoskeletal: Positive for neck pain. Skin: Negative. Allergic/Immunologic: Negative. Neurological: Positive for tingling (right side neck to right arm and into fingers) and numbness (right side neck to right arm and into fingers). Hematological: Negative. Psychiatric/Behavioral: Negative. Vital Signs: BP 102/71 (BP Site: Right Arm, BP Postition: Sitting) Pulse 80 Resp 18 Ht 165.1 cm (5' 5 ) Wt 78 kg (172 lb) LMP (LMP Unknown) SpO2 100% BMI 28.62 kg/m Physical Exam: GENERAL - Healthy patient that appears stated age. HEENT - Normocephalic / Atraumatic, Extraoccular movements intact, trachea midline, thyroid within normal limits. CV - pulse regular, Warm extremities with appropriate color of nailbeds. RESP - No obvious wheezing, No Shortness of Breath, No overexertion response to exam maneuvers. COORDINATION - remains intact. PSYCH - Alert and Oriented x4, Attentive and appropriate, constitutionally normal, displays normal mood and affect per situation, answered questions appropriately during examination, demonstrated appropriate attention during discussion, demonstrated appropriate cognitive reasoning and understandingof the medical condition by asking appropriate questions regarding the diagnosis and risks/benefits/alternatives of treatment modalities. No obvious deficits in memory, reasoning, or intellect. Cervical: SKIN - No rashes or bruising in the area of the patient s pain. LYMPH NODES - demonstrate no obvious enlargement. EXTREMITIES - Upper extremities are warm, with minimal edema and palpable pulses. Tenderness to palpation noted in the cervical spine and paraspinal musculature. Pain is elicited with flexion, extension, and lateral rotation of the cervical spine. Range of motion is diminished with these motions due to pain. Facet palpation is noted to be painful and concordant with the patient s normal pain complaints. STRENGTH - noted to be 5 out of 5 all muscle groups bilateral upper extremities including muscles involving shoulder flexion and abduction, elbow flexion and extension, as well as wrist flexion and extension and intrinsic muscles of the hand. No notable atrophy, fasciculations or spasm. SENSORY - No notable sensory deficits in the bilateral upper extremities to touch or pinprick in all dermatomal distributions. Spurlings sign is negative. Assessment/Treatment Plan: Jacque was seen today for neck pain. Diagnoses and all orders for this visit: Cervical spondylosis without myelopathy Complete Physical/Aquatic Therapy as ordered - It is felt that the patient will benefit from a course of physical therapy focusing on the above mentioned diagnosis. We will recommend that the physical therapist fully evaluate and treat at their discretion considering the modalities that are most useful for the condition being treated. This may i nclude modalities of comfort including moist heat, ultrasound, and TENS therapy. It may also utilize manual therapy and myofascial release for the myofascial component of the patient s pain. It will likely advance to modalities aimed at stabilizing and strengthing the target area while improving range of motion as well. We are also requesting that the physical therapist send notes that will keep our clinic updated to the patient s progress. Bilateral C3/4 4/5 Facet Injection/Medial Branch Block - under fluoroscopy It is hopeful that the described procedure will provide symptomatic pain relief. It is felt to be medically necessary noting that the patient has tried and failed more conservative modalities of therapy and this is the next most appropriate step. The procedure was described in detail to the patientas well as the potential benefits of pain reduction alongside risks of the procedure and alternatives. Risks were described as including, but not limited to bleeding, infection, nerve damage, spinal cord injury, paralysis, stroke, dural puncture headache, and medication reaction. The patient expressed understanding regarding the risks and benefits and wishes to proceed. Diagnostic facet injections and medial branch blocks should provide information to confirm that thenoted facet arthropathy is the patient s most significant pain generator. If this provides significant but only temporary pain relief, the patient may in the future be a candidate for radiofrequency denervation of the facet joints to provide pain relief for approximately 1 year. Follow up 2 weeks after procedure The medications I have prescribed have been reviewed for medication interactions/contraindications and/or for upcoming procedures: continue current medication regimen without any changes. DISCUSSION: Treatment options discussed with patient and all questions answered to patient's satisfaction. Discussed the rules and regulations surrounding prescription of opioids and compliance at length. Failure to follow the rules and regulation will result in tapering and discontinuation of medications if applicable. Prescribed medication that requires intensive monitoring for toxicity We do not currently prescribeany controlled substance from this practice. Treatment plans discussed but not opted for at this time: Cervical RFA. Patient would like to proceed with the current outlined treatment plan before moving forward with any other options. The spine model was demonstrated and MRI was reviewed and used to explain the condition. Chronic conditions not treated during this visit that affected my overall medical decision making: Comorbidity- Sleep Apnea The patient has a history of obstructive sleep apnea. Due to this reason, special consideration will need to be given to the prescription of narcotics in that they may depress respiratory function and lead to respiratory insufficiency or failure. Consideration will also be given to procedure safetyin that sedation is used in the outpatient setting for any planned procedure. These records will beavailable to the anesthesiologist to tailor a safe anesthetic for the procedure. The patient will also be observed closely in the recovery area and may even require admission if they remain overly sedated for an extended period of time and cannot maintain an airway. These preparations will be made as necessary. Comorbidity- Anxiety The patient describes a significant issue with anxiety. Although treatment is helpful with this regard, the patient is likely need special accommodation due to this condition. For this reason, necessary procedures will likely need to be performed under sedation to decrease procedural anxiety. OARRS: Reviewed. Scribe Statement: Scribed for and in the presence of BAYLEE URENA by Jacque Lanza CNA. Provider Statement: I, BAYLEE URENA, personally performed the services described in the documentation,as scribed by Jacque Lanza CNA in my presence, and it is both accurate and complete. Jacque Lanza CNA 06/27/24 1422 Jacque Lanza CNA 06/27/24 1434 BAYLEE Urena 06/27/24 1537 documented in this [facility]Day[facility]09-17-2024 Instructions* Patient Instructions* Jacque Lanza CNA - 06/27/2024 1:30 PM EDT Facet Injection / Medial Branch Block (MBB) / Sacroiliac (SI) Joint Injection / Cluneal NB A facet injection and sacroiliac joint injection are injections of local anesthetic and steroid into a joint in the spine. A medial branch block is similar, but the medication is placed outside the joint space near the nerve that supplies the joint called the medial branch (steroid may or may not be used). You may require multiple injections depending upon how many joints are involved. How Long Will This Procedure Last? The extent and duration of pain relief may depend on the amount of inflammation and how many areas are involved. Other coexisting factors may be responsible for your pain. If your pain goes away for a short time, but then returns, you may be a candidate for radiofrequency ablation (RFA). Activity Be active. Attempt activities and movements that typically cause pain to see if it feels better while doing them. We will give you a pain diary. Please fill this out as directed by your nurse in pre-op. This will help your doctor determine the effectiveness of the injection, and how to proceed. Bring the pain diary with you to your follow-up appointment. Medications You should not take your pain medications for 4-6 hours before or after the injection in order to properly diagnose if the injection provides adequate relief. Resume your routine medications after your procedure. You may resume blood thinners per your regular schedule after the procedure. If you received sedation: If you received sedation for your procedure, you may feel sleepy or not yourself for several hours today. For the next 24 hours avoid activities that requires alertness or coordination. This includes: Driving or operating heavy machinery Using power tools Consuming alcohol Do not make important or complex decisions or sign legal documents in the next 24 hours. Other Instructions: If you feel severe pain at the injection site with swelling and redness, increased leg weakness, a fever of 101 or higher, headache (or worsening headache), changes in vision or urinary retention: Please call the office at , or have someone take you to the nearest emergency room. Tellthe emergency room staff that you recently had a spine injection. A doctor must evaluate you for bleeding and injection complications. If you lose control over bowel, bladder, or legs: Go to the nearest emergency room. documented in this encounterMount [facility]utney HospitalCollactive09-09-[facility]24 Miscellaneous Notes* Telephone Encounter - Denise Diehl APRN-ROXANA - 06/19/2024 1:28 PM EDT Please forward MRI to patient's pcp for further evaluation and management of incidental finding: Fenestrated left proximal vertebral artery, one of the limbs has a high engagement, entering the transverse foramen at the C5 level [series 9 image #19]. Thank you! * Telephone Encounter - Mary Piña RN - 06/19/2024 1:28 PM EDT MRI results faxed to [facility] via [employer] and fax machine. [employer] spoke with Yodit who states that Gisel Sandoval CNP is no longer practicing at that office. Patient's PCP is now Shira Concepcion PA-C. Confirmed faxnumber with Yodit and informed her that the MRI report has been faxed to their office. documented in this encounterRiverside Methodist HospitalQumulo [facility] [id number] Telephone encounter Note* Telephone Encounter - BAYLEE Urena - 06/19/2024 1:28 PM EDT Please forward MRI to patient's pcp for further evaluation and management of incidental finding: Fenestrated left proximal vertebral artery, one of the limbs has a high engagement, entering the transverse foramen at the C5 level [series 9 image #19]. Thank you! [facility] Work Phone: [phone] 707-326709-09-2024 Telephone encounter Note* Telephone Encounter - Mary Piña RN - 06/19/2024 1:28 PM EDT MRI results faxed to [facility] via [employer] and fax machine. P[employer] spoke with Yodit who states that Gisel Sandoval CNP is no longer practicing at that office. Patient's PCP is now Shira Concepcion PA-C. Confirmed faxnumber with Yodit and informed her that the MRI report has been faxed to their office. [facility]BiOWiSH [id number] History of Present illness Narrative* Quinten Figueroa MD - 06/06/2024 12:56 PM EDTAssociated Problem(s): Poor sleep hygiene Sleep hygiene improvements as discussed. * Quinten Figueroa MD - 06/06/2024 12:55 PM EDTAssociated Problem(s): RICHA (obstructive sleep apnea) Restart CPAP. Will need new supplies. Download in 1 mo, then before appt. Get old sleep studies - [facility] somewhere. * Quinten Figueroa MD - 06/06/2024 12:52 PM EDTAssociated Problem(s): Family history of cerebral aneurysm Plan CTA head 2028. * Quinten Figueroa MD - 06/06/2024 12:51 PM EDTAssociated Problem(s): RLS (restless legs syndrome) PLMD panel. * Quinten Figueroa MD - 06/06/2024 12:50 PM EDTAssociated Problem(s): Insomnia, psychophysiological (Re)start zolpidem 10 hs. * Quinten Figueroa MD - 06/06/2024 12:48 PM EDTAssociated Problem(s): Migraine with aura, intractable, with status migrainosus (CMS/HCC) (Continue current regimen.) Pt/husb asked for handicapped placard. Explained that the diagnoses I treat do not qualify her for this. * Quinten Figueroa MD - 06/06/2024 12:15 PM EDT Images from the original note were not included. Outpatient Progress Note Prev Appt: 02/29/2024 Chief Complaint Patient presents with Migraine Assessment and Plan - Migraine with aura, intractable, with status migrainosus (CMS/HCC) (Continue current regimen.) Pt/husb asked for handicapped placard. Explained that the diagnoses I treat do not qualify her for this. Insomnia, psychophysiological (Re)start zolpidem 10 hs. RLS (restless legs syndrome) PLMD panel. Family history of cerebral aneurysm Plan CTA head 2028. RICHA (obstructive sleep apnea) Restart CPAP. Will need new supplies. Download in 1 mo, then before appt. Get old sleep studies - [facility] somewhere. Poor sleep hygiene Sleep hygiene improvements as discussed. No orders of the defined types were placed in this encounter. Follow-Up - Follow up in about 2 months (around 08/06/2024). History of Present Illness, Associated Treatments and Results - Dx RICHA / RLS / INSOMNIA Tx (CPAP in past) (ropinirole 4 hs --PCP) (amitriptyline) (+ cyclobenzaprine 10 tid --PCP) Aes Hx New problems (this practice). Failed Semeiol Circad Schedule very disrupted. May sleep only [id number] wide awake. Does not nap. Noct oxim PSG PAPT MSLT MWT Imaging Testing Surgery Dx HEADACHES / FHx ANEURYSM Tx ere 140 + nirav 100 + metoprolol 25 + TPM 200/400 (incr) (+ VLF XR 150 --PCP/depr) + prn radha + prn DHE 45 AEs Hx Freq (> 4 h) - 2 d/w & less severe when on full dose. Orig (pre-CGRP) freq - 16+ d/mo. Imaging (q.v.) Testing Surgery Failed nirav 100 (ineff alone), metoprolol 25 (ineff alone), TPM 100 (ineff), VLF XR 150 (ineff) Onset Aura phosphenes Sx pressure pulsating Loc occipital->frontal R Assoc nausea photophobia phonophobia osmophobia movement-exacerbated dizziness blurred vision phosphenes Trigger barometric stress Compl dysphasia Clust none FHx father - cluster Dx FHx ANEURYSM Tx AEs Hx Rev'd imaging. Mother had SAH due to ruptured aneurysm. 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 Per XRs arising from diploic space, expanding the inner & outer tables. Onset Semeiology Imaging MR brain (06/2019, [facility]) - craniotomy R par; scattered ^T2/FLAIR . . . . (02/2016, [facility]) - old craniotomy R par; minor scattered ^T2/FLAIR CTA head (01/2024, [facility]) - no aneurysm Testing Surgery Craniostomy + excision giant cill(1995, [facility]) - giant cell ?deny Failed Physical Exam - General appearance, mentation, extraocular movements, facial strength and movement, hearing, upper and lower extremity strength and tone, sensation to gross testing, coordination, and gait are normalor at baseline unless noted below. HEENT - ___, unchanged: Tongue somewhat tall, orig: ___ MS - ___, unchanged: ___, orig: ___ CNN - ___, unchanged: ___, orig: ___ Motor - ___, unchanged: ___, orig: ___ Sens - ___, unchanged: ___, orig: ___ Reflex - ___, unchanged: ___, orig: ___ Coord - ___, unchanged: Romberg + even with tactile input by examiner, orig: ___ Gait - ___, unchanged: ___, orig: ___ Vestib - ___, unchanged: ___, orig: ___ MSK - Spasm - C mild, unchanged: ___, orig: ___ Other - ___, unchanged: ___, orig: ___ Vital Signs - Visit Vitals Ht 5' 5 Wt 170 lb BMI 28.29 kg/m Smoking Status Never BSA 1.88 m Review of Systems - . Const: Denies appetite change, fever, chills. Allergy: Denies medication reaction. Ocular: Denies visual acuity change. ENT: Denies hearing change. Endoc: Denies weight loss. Resp: Denies dyspnoea, wheezing. Cardiac: Denies angina, palpitations. GI: Denies nausea, vomiting. Haem: Denies bleeding. : Denies incontinence. MSK: Denies arthralgias, joint oedema. Derm: Denies rash, hair loss. Neuro: Denies ataxia, tremor. Also see HPI for elements of ROS documented therein and for details of positive findings, which shall supersede the foregoing. PMH, PSH, Allergies, FH, SH - No past medical history on file. Past Surgical History: Procedure Laterality Date BRAIN TUMOR EXCISION CARPAL TUNNEL RELEASE Bilateral CT ANGIO HEAD 01/27/2024 CT ANGIO HEAD 01/27/[address] FOOT SURGERY Spur removed OTHER SURGICAL HISTORY Breast reducation OTHER SURGICAL HISTORY Occiptal nerve block in neck PARTIAL HYSTERECTOMY Allergies Allergen Reactions Ketorolac Hallucinations and Hives Promethazine Hives Tizanidine Hives Acetaminophen-Codeine Rash Codeine Rash Other Reaction(s): Trouble Breathing Sulfa Antibiotics Hives and Rash Other Reaction(s): Hives Sulfamethoxazole-Trimethoprim Rash No family history on file. Outpatient Encounter Medications as of 06/06/2024 Medication Sig Dispense Refill albuterol (2.5 MG/3ML) 0.083% nebulizer solution INHALE 3 ML VIA NEBULIZER THREE TIMES DAILY, NEEDED 30 DAYS amitriptyline (Elavil) 100 MG tablet TAKE 1 TABLET BY MOUTH EVERY DAY AT BEDTIME FOR 90 DAYS atorvastatin (Lipitor) 20 MG tablet Take 20 mg by mouth at bedtime. [] clindamycin (Cleocin) 300 MG capsule Take 1 capsule (300 mg) by mouth in the morning and 1 capsule (300 mg) at noon and 1 capsule (300 mg) in the evening and 1 capsule (300 mg) before bedtime. Do all this for 10 days. 40 capsule 0 cyclobenzaprine (Flexeril) 10 MG tablet TAKE 1 TABLET BY MOUTH 3 TIMES A DAY NEEDED for 30 erenumab (Aimovig) 70 MG/ML injection 1 injection subcutaneous every 30 days (Patient taking differently: Inject 140 mg under the skin every 28 (twenty- eight) days 1 injection subcutaneous every 30 days) 3 each 1 gabapentin (Neurontin) 300 MG capsule Take 1 capsule by mouth every 12 (twelve) hours Glucosamine 750 MG tablet Take 750 mg by mouth 1 (one) time each day at the same time levothyroxine (Synthroid, Levoxyl) 112 MCG tablet TAKE 1 TABLET BY MOUTH EVERY DAY IN THE MORNING ON EMPTY STOMACH FOR 90 DAYS for 90 meloxicam (Mobic) 15 MG tablet Take 15 mg by mouth Daily mupirocin (Bactroban) 2 % ointment Apply to each side of the nose twice daily 3 weeks 15 g 1 omeprazole (PriLOSEC) [address] capsule Take 40 mg by mouth 1 (one) time each day at the same time rOPINIRole (Requip) 4 MG tablet 1 (one) time each day at the same time. SUMAtriptan (Imitrex) 50 MG tablet Take 50 mg by mouth 1 (one) time if needed topiramate (Topamax) 200 MG tablet 1 tab AM 2 tabs PM 90 tablet 3 venlafaxine XR (Effexor XR) 150 MG 24 hr capsule 1 (one) time each day at the same time. verapamil SR (Calan SR) 120 MG ER tablet Take 120 mg by mouth 1 (one) time each day at the same time [DISCONTINUED] chlorhexidine (Peridex) 0.12 % solution every 12 (twelve) hours. [DISCONTINUED] diclofenac (Voltaren) 75 MG EC tablet Oral for 5 Days [DISCONTINUED] ibuprofen 800 MG tablet every 8 (eight) hours. [DISCONTINUED] topiramate (Topamax) 200 MG tablet 1 tab AM 2 tabs PM 90 tablet 3 No facility-administered encounter medications on file as of 06/06/2024. Quinten Figueroa M.D. Quinten Figueroa M.D. documented in this encounterFreeman Orthopaedics & Sports [id number] History of Present illness Narrative* Denise Diehl APRN-SHEEP FARM MANAGER - 05/23/2024 8:30 AM EDT [facility] [address] [place] [address] Patient: Autumn Brandt Sex: female : 1965 Age: 58 y.o. PCP: Mike Burkett APRN-SHEEP FARM MANAGER 05/23/2024 Autumn Brandt is here for a(n) initial consultation for neck pain. Last seen in 2016. Her pain has increased significantly over the past 4-6 weeks after running head first into a fence while working in her yard. She reports she sees neurology for her chronic migraine headaches. She reports recentimaging of brain ordered by neurology. Chief Complaint Patient presents with Neck Pain HPI: No PT Neck Pain This is a new problem. Episode onset: April 2024. The problem occurs constantly. The problem has been gradually worsening. Associated with: tripped in yard and fell. The pain is present in the midline, left side, right side and occipital region. The quality of the pain is described as aching, stabbing, shooting, burning and cramping. Pain scale: 7/10 currently but increases to 10/10 while working in yard. The pain is moderate. The symptoms are aggravated by twisting, stress, sneezing, position, coughing and bending (moving head up, down, left, right, hyperextension). Worse during: worse in both night and during day. Stiffness is present In the morning. Associated symptoms include numbness (right arm), photophobia and tingling (right arm). Pertinent negatives include no chest pain or fever.Treatments tried: Voltaren gel, NSAIDs (ibuprofen, meloxicam), tylenol with minimal. The effect of pain on patient's ADLS: Moderate Impairment. Past Medical History: Diagnosis Date Anxiety Asthma Brain tumor (benign) ([facility]) Carpal tunnel syndrome Chronic pain neck and back Coronary artery disease Depression GERD (gastroesophageal reflux disease) Headache(784.0) High cholesterol Hypertension Hypothyroidism Migraine Neck pain Neurologic abnormality New onset seizure ([facility]) 06/29/2019 Sleep apnea 2020 Past Surgical History: Procedure Laterality Date CARPAL TUNNEL RELEASE Bilateral CARPAL TUNNEL RELEASE Bilateral 2002,2003 CRANIOTOMY Right parietal, for benign tumor ESOPHAGOGASTRODUODENOSCOPY N/A 03/02/2023 Performed by Jaswant Gibbons DO at [facility] FREQUENCY [facility] - Right C2/3, C3/4 RFA Right 03/12/2017 Performed by Pb Prasad MD at [facility] MAMMAPLASTY Bilateral 10/11/2006 SPINAL CORD STIMULATOR IMPLANT SPINAL CORD STIMULATOR REMOVAL TONSILLECTOMY TONSILLECTOMY TUBAL LIGATION Allergies Allergen Reactions Ketorolac Hives and Hallucinations Promethazine Hcl Hives Tizanidine Hives Codeine Rash Sulfa (Sulfonamide Antibiotics) Hives and Rash Sulfamethoxazole-Trimethoprim Rash Family History Problem Relation Age of Onset Cerebral aneurysm Mother Restless legs syndrome Mother Aneurysm Mother Prostate cancer Father Ovarian cancer Maternal Aunt Ovarian cancer Maternal Aunt Ovarian cancer Maternal Aunt Ovarian cancer Maternal Aunt Social History Socioeconomic History Marital status: Spouse name: Not on file Number of children: Not on file Years of education: Not on file Highest education level: Not on file Occupational History Not on file Tobacco Use Smoking status: Never Smokeless tobacco: Never Vaping Use Vaping status: Never Used Substance and Sexual Activity Alcohol use: No Comment: social Drug use: Yes Types: Marijuana Comment: medical card Sexual activity: Defer Partners: Male Other Topics Concern Not on file Social History Narrative Not on file Social Determinants of Health Financial Resource Strain: Not on file Food Insecurity: No Food Insecurity (05/23/2024) Hunger Screening Food Insecurity - Worry: Never True Food Insecurity - Inability: Never True Transportation Needs: Not on file Physical Activity: Not on file Stress: Not on file Social Connections: Not on file Interpersonal Safety: Not on file Housing Instability: Not on file Review of Systems Constitutional: Negative for chills, fatigue and fever. HENT: Negative. Eyes: Positive for photophobia and pain. Respiratory: Negative. Negative for cough and shortness of breath. Cardiovascular: Negative. Negative for chest pain and palpitations. Gastrointestinal: Negative. Endocrine: Negative. Genitourinary: Negative. Musculoskeletal: Positive for neck pain. Allergic/Immunologic: Negative. Neurological: Positive for tingling (right arm) and numbness (right arm). Hematological: Negative. Psychiatric/Behavioral: Negative. Vital Signs: BP 103/74 (BP Site: Right Arm, BP Postition: Sitting) Pulse 74 Resp 20 Ht 165.1 cm (5' 5 ) Wt 78 kg (172 lb) LMP (LMP Unknown) SpO2 100% BMI 28.62 kg/m Physical Exam: GENERAL - Healthy patient that appears stated age. HEENT - Normocephalic / Atraumatic, Extraoccular movements intact, trachea midline, thyroid within normal limits. CV - pulse regular, Warm extremities with appropriate color of nailbeds. RESP - No obvious wheezing, No Shortness of Breath, No overexertion response to exam maneuvers. COORDINATION - remains intact. PSYCH - Alert and Oriented x4, Attentive and appropriate, constitutionally normal, displays normal mood and affect per situation, answered questions appropriately during examination, demonstrated appropriate attention during discussion, demonstrated appropriate cognitive reasoning and understandingof the medical condition by asking appropriate questions regarding the diagnosis and risks/benefits/alternatives of treatment modalities. No obvious deficits in memory, reasoning, or intellect. Cervical: SKIN - No rashes or bruising in the area of the patient s pain. LYMPH NODES - demonstrate no obvious enlargement. EXTREMITIES - Upper extremities are warm, with minimal edema and palpable pulses Tenderness to palpation noted in the cervical spine and paraspinal musculature. Pain is elicited with flexion, extension, and lateral rotation of the cervical spine. Range of motion is diminished with these motions due to pain. Facet palpation is noted to be somewhat tender but not concordant with the patient s normal pain complaints. STRENGTH - noted to be 4 out of 5 all muscle groups bilateral upper extremities including muscles involving shoulder flexion and abduction, elbow flexion. No notable atrophy, fasciculations or spasm. SENSORY - No notable sensory deficits in the bilateral upper extremities to touch or pinprick in all dermatomal distributions with exception to increased sensation in the Bilateral C5 dermatomal distribution(s). Spurlings sign is Positive Cranial nerves 3-12 are grossly intact, Pupils are equally round and react to light, No notable photophobia, No pain with palpation of the frontal or maxillary sinuses, No pain with opening or closing the jaw or palpation of the TMJ Joint. No significant palpatory tenderness over the Occipital Nerve at the Occipital Groove or the Supraorbital Nerve at the Supraorbital Notch. Assessment/Treatment Plan: Autumn was seen today for neck pain. Diagnoses and all orders for this visit: Chronic neck pain - Ambulatory referral to Physical Therapy; Future - X-ray spine cervical 3 views or less; Future Cervical radiculopathy - MR cervical spine without contrast; Future Cervical spine xray Imaging/Diagnostic Testing - It is felt that additional diagnostic testing is necessary to further evaluate the patients currentpain pathology. For this reason, we will order additional imaging/diagnostic testing noted above. It is hopeful that this study will identify a significant pain generator that will be amenable to therapy. It is felt that this modality is necessary due to the severity and chronicity of symptoms and physical exam findings combined with the lack of recent imaging/diagnostic testing of the area. Cervical spine MRI - It is felt that additional diagnostic testing is necessary to further evaluate the patients currentpain pathology. For this reason, we will order additional imaging noted above. It is hopeful that this study will identify a significant pain generator that will be amenable to therapy. It is felt that this modality is necessary due to the severity and chronicity of symptoms and physical exam findings combined with the lack of recent imaging of the area. An MRI is specifically felt to be necessary due to the physical exam findings noted above and the patient s description of refractory pain in a neuropathic distribution that is not relieved by change in body position and interferes with the patient s activities of daily living Physical/Aquatic Therapy - It is felt that the patient will benefit from a course of physical therapy focusing on the above mentioned diagnosis. We will recommend that the physical therapist fully evaluate and treat at their discretion considering the modalities that are most useful for the condition being treated. This may i nclude modalities of comfort including moist heat, ultrasound, and TENS therapy. It may also utilize manual therapy and myofascial release for the myofascial component of the patient s pain. It will likely advance to modalities aimed at stabilizing and strengthing the target area while improving range of motion as well. We are also requesting that the physical therapist send notes that will keep our clinic updated to the patient s progress. Follow up 4-6 weeks The medications prescribed have been reviewed for medication interactions/contraindications and/or for upcoming procedures: continue current medication regimen without any changes. DISCUSSION: Treatment options discussed with patient and all questions answered to patient's satisfaction. Discussed the rules and regulations surrounding prescription of opioids and compliance at length. Failure to follow the rules and regulation will result in tapering and discontinuation of medications if applicable. Prescribed medication that requires intensive monitoring for toxicity We do not currently prescribeany controlled substance from this practice. The spine model was demonstrated and Xray, MRI, and CT was reviewed and used to explain the condition. Chronic conditions not treated during this visit that affected my overall medical decision making: Depression, Anxiety, Sleep apnea OARRS: Reviewed. Scribe Statement: Scribed for and in the presence of BAYLEE URENA by Jacque Lanza CNA. Provider Statement: I, BAYLEE URENA, personally performed the services described in the documentation,as scribed by Jacque Lanza CNA in my presence, and it is both accurate and complete. Jacque Lanza CNA 05/23/24 0929 BAYLEE Urena 05/23/24 0942 documented in this encounterDay[facility] NoteChief Complaint consultation for colonoscopy HPI Staff 58 [...] swallowing difficulties, no hearing loss, no ear infection(s),no nose bleeds. Cardiovascular: normal blood pressure, no [...] Colonoscopy, Excision of calcaneal spur, Excision of tumorof brain meninges, Tubal ligation, VH - Vaginal [...] tab(s), Oral, Daily ve (more content not included)...[facility] HospitalComment on above: Result Comment: Electronically Signed By: MOUNA BENITEZ, Jaswant Mccain\Date and Time Signed: 02/01/24 13:58 EDTEvaluation + Plan note No data available for this section [facility] [place] Evaluation note* Diagnosis Encounter to establish care- Primary Wellness examination Primary hypertension (CMS/HCC) Unspecified essential hypertension Hypothyroidism, unspecified type (CMS/HCC) Anxiety Anxiety state, unspecified Major depressive disorder, recurrent episode, moderate (CMS/HCC) Major depressive disorder, recurrent episode, moderate Alcohol abuse Nondependent alcohol abuse, unspecified drinking behavior RICHA (obstructive sleep apnea) Obstructive sleep apnea (adult) (pediatric) Encounter for screening mammogram for malignant neoplasm of breast Cervical spondylosis without myelopathy [facility]* Diagnosis Migraine with aura, intractable, with status migrainosus (CMS/HCC)- Primary Family history of cerebral aneurysm Family history of other cardiovascular diseases Migraine with aura, intractable, with status migrainosus (CMS/HCC)- Primary Brain tumor (CMS/HCC) Neoplasm of unspecified nature of brain Family history of cerebral aneurysm Family history of other cardiovascular diseases Migraine with aura, intractable, with status migrainosus (CMS/HCC)- Primary Migraine with aura, intractable, with status migrainosus (CMS/HCC)- Primary Insomnia, psychophysiological RLS (restless legs syndrome) Restless legs syndrome (RLS) Family history of cerebral aneurysm Family history of other cardiovascular diseases RICHA (obstructive sleep apnea) Obstructive sleep apnea (adult) (pediatric) Poor sleep hygiene Other specific disorder of sleep of nonorganic origin Encounter to establish care- Primary Wellness examination Primary hypertension (CMS/HCC) Unspecified essential hypertension Hypothyroidism, unspecified type (CMS/HCC) Anxiety Anxiety state, unspecified Major depressive disorder, recurrent episode, moderate (CMS/HCC) Major depressive disorder, recurrent episode, moderate Alcohol abuse Nondependent alcohol abuse, unspecified drinking behavior RICHA (obstructive sleep apnea) Obstructive sleep apnea (adult) (pediatric) Encounter for screening mammogram for malignant neoplasm of breast Cervical spondylosis without myelopathy Anxiety Anxiety state, unspecified Alcohol abuse Nondependent alcohol abuse, unspecified drinking behavior [facility]* Diagnosis Onset Date Resolution Status UTI (urinary tract infection) acute [facility] Work Phone: Evaluation noteNo assessment information available [facility] Work Phone: Evaluation note* Diagnosis Migraine with aura, intractable, with status migrainosus (CMS/HCC)- Primary Family history of cerebral aneurysm Family history of other cardiovascular diseases Migraine with aura, intractable, with status migrainosus (CMS/HCC)- Primary Brain tumor ([facility]) Neoplasm of unspecified nature of brain Family history of cerebral aneurysm Family history of other cardiovascular diseases Migraine with aura, intractable, with status migrainosus (CMS/HCC)- Primary Migraine with aura, intractable, with status migrainosus (CMS/HCC)- Primary Insomnia, psychophysiological RLS (restless legs syndrome) Restless legs syndrome (RLS) Family history of cerebral aneurysm Family history of other cardiovascular diseases RICHA (obstructive sleep apnea) Obstructive sleep apnea (adult) (pediatric) Poor sleep hygiene Other specific disorder of sleep of nonorganic origin Encounter to establish care- Primary Wellness examination Primary hypertension (CMS/HCC) Unspecified essential hypertension Hypothyroidism, unspecified type (CMS/HCC) Anxiety Anxiety state, unspecified Major depressive disorder, recurrent episode, moderate (CMS/HCC) Major depressive disorder, recurrent episode, moderate Alcohol abuse Nondependent alcohol abuse, unspecified drinking behavior RICHA (obstructive sleep apnea) Obstructive sleep apnea (adult) (pediatric) Encounter for screening mammogram for malignant neoplasm of breast Cervical spondylosis without myelopathy Gastroesophageal reflux disease, unspecified whether esophagitis present- Primary [facility]* Diagnosis Migraine with aura, intractable, with status migrainosus (CMS/HCC)- Primary Family history of cerebral aneurysm Family history of other cardiovascular diseases Migraine with aura, intractable, with status migrainosus (CMS/HCC)- Primary Brain tumor (CMS/HCC) Neoplasm of unspecified nature of brain Family history of cerebral aneurysm Family history of other cardiovascular diseases Migraine with aura, intractable, with status migrainosus (CMS/HCC)- Primary Migraine with aura, intractable, with status migrainosus (CMS/HCC)- Primary Insomnia, psychophysiological RLS (restless legs syndrome) Restless legs syndrome (RLS) Family history of cerebral aneurysm Family history of other cardiovascular diseases RICHA (obstructive sleep apnea) Obstructive sleep apnea (adult) (pediatric) Poor sleep hygiene Other specific disorder of sleep of nonorganic origin Encounter to establish care- Primary Wellness examination Primary hypertension (CMS/HCC) Unspecified essential hypertension Hypothyroidism, unspecified type (CMS/HCC) Anxiety Anxiety state, unspecified Major depressive disorder, recurrent episode, moderate (CMS/HCC) Major depressive disorder, recurrent episode, moderate Alcohol abuse Nondependent alcohol abuse, unspecified drinking behavior RICHA (obstructive sleep apnea) Obstructive sleep apnea (adult) (pediatric) Encounter for screening mammogram for malignant neoplasm of breast Cervical spondylosis without myelopathy PTSD (post-traumatic stress disorder) (CMS/HCC) Posttraumatic stress disorder Alcohol abuse Nondependent alcohol abuse, unspecified drinking behavior [facility] Diagnosis Migraine with aura, intractable, with status migrainosus (CMS/HCC)- Primary Family history of cerebral aneurysm Family history of other cardiovascular diseases Migraine with aura, intractable, with status migrainosus (CMS/HCC)- Primary Brain tumor (CMS/HCC) Neoplasm of unspecified nature of brain Family history of cerebral aneurysm Family history of other cardiovascular diseases Migraine with aura, intractable, with status migrainosus (CMS/HCC)- Primary Migraine with aura, intractable, with status migrainosus (CMS/HCC)- Primary Insomnia, psychophysiological RLS (restless legs syndrome) Restless legs syndrome (RLS) Family history of cerebral aneurysm Family history of other cardiovascular diseases RICHA (obstructive sleep apnea) Obstructive sleep apnea (adult) (pediatric) Poor sleep hygiene Other specific disorder of sleep of nonorganic origin Encounter to establish care- Primary Wellness examination Primary hypertension (CMS/HCC) Unspecified essential hypertension Hypothyroidism, unspecified type (CMS/HCC) Anxiety Anxiety state, unspecified Major depressive disorder, recurrent episode, moderate (CMS/HCC) Major depressive disorder, recurrent episode, moderate Alcohol abuse Nondependent alcohol abuse, unspecified drinking behavior RICHA (obstructive sleep apnea) Obstructive sleep apnea (adult) (pediatric) Encounter for screening mammogram for malignant neoplasm of breast Cervical spondylosis without myelopathy PTSD (post-traumatic stress disorder) (CMS/HCC) Posttraumatic stress disorder Alcohol abuse Nondependent alcohol abuse, unspecified drinking behavior [facility]* Diagnosis Migraine with aura, intractable, with status migrainosus (CMS/HCC)- Primary Family history of cerebral aneurysm Family history of other cardiovascular diseases Migraine with aura, intractable, with status migrainosus (CMS/HCC)- Primary Brain tumor (CMS/HCC) Neoplasm of unspecified nature of brain Family history of cerebral aneurysm Family history of other cardiovascular diseases Migraine with aura, intractable, with status migrainosus (CMS/HCC)- Primary Migraine with aura, intractable, with status migrainosus (CMS/HCC)- Primary Insomnia, psychophysiological RLS (restless legs syndrome) Restless legs syndrome (RLS) Family history of cerebral aneurysm Family history of other cardiovascular diseases RICHA (obstructive sleep apnea) Obstructive sleep apnea (adult) (pediatric) Poor sleep hygiene Other specific disorder of sleep of nonorganic origin Encounter to establish care- Primary Wellness examination Primary hypertension (CMS/HCC) Unspecified essential hypertension Hypothyroidism, unspecified type (CMS/HCC) Anxiety Anxiety state, unspecified Major depressive disorder, recurrent episode, moderate (CMS/HCC) Major depressive disorder, recurrent episode, moderate Alcohol abuse Nondependent alcohol abuse, unspecified drinking behavior RICHA (obstructive sleep apnea) Obstructive sleep apnea (adult) (pediatric) Encounter for screening mammogram for malignant neoplasm of breast Cervical spondylosis without myelopathy Acute cystitis without hematuria- Primary Primary hypertension (CMS/HCC) Unspecified essential hypertension Dyslipidemia (CMS/HCC) Other and unspecified hyperlipidemia RICHA (obstructive sleep apnea) Obstructive sleep apnea (adult) (pediatric) High cholesterol (CMS/HCC) Pure hypercholesterolemia [facility]* Diagnosis Migraine with aura, intractable, with status migrainosus (CMS/HCC)- Primary Family history of cerebral aneurysm Family history of other cardiovascular diseases Migraine with aura, intractable, with status migrainosus (CMS/HCC)- Primary Brain tumor (CMS/HCC) Neoplasm of unspecified nature of brain Family history of cerebral aneurysm Family history of other cardiovascular diseases Migraine with aura, intractable, with status migrainosus (CMS/HCC)- Primary Migraine with aura, intractable, with status migrainosus (CMS/HCC)- Primary Insomnia, psychophysiological RLS (restless legs syndrome) Restless legs syndrome (RLS) Family history of cerebral aneurysm Family history of other cardiovascular diseases RICHA (obstructive sleep apnea) Obstructive sleep apnea (adult) (pediatric) Poor sleep hygiene Other specific disorder of sleep of nonorganic origin Encounter to establish care- Primary Wellness examination Primary hypertension (CMS/HCC) Unspecified essential hypertension Hypothyroidism, unspecified type (CMS/HCC) Anxiety Anxiety state, unspecified Major depressive disorder, recurrent episode, moderate (CMS/HCC) Major depressive disorder, recurrent episode, moderate Alcohol abuse Nondependent alcohol abuse, unspecified drinking behavior RICHA (obstructive sleep apnea) Obstructive sleep apnea (adult) (pediatric) Encounter for screening mammogram for malignant neoplasm of breast Cervical spondylosis without myelopathy Acute cystitis without hematuria- Primary Primary hypertension (CMS/HCC) Unspecified essential hypertension Dyslipidemia (CMS/HCC) Other and unspecified hyperlipidemia RICHA (obstructive sleep apnea) Obstructive sleep apnea (adult) (pediatric) High cholesterol (CMS/HCC) Pure hypercholesterolemia Anemia, unspecified type- Primary [facility] Diagnosis Migraine with aura, intractable, with status migrainosus (CMS/HCC)- Primary Family history of cerebral aneurysm Family history of other cardiovascular diseases Migraine with aura, intractable, with status migrainosus (CMS/HCC)- Primary Brain tumor (CMS/HCC) Neoplasm of unspecified nature of brain Family history of cerebral aneurysm Family history of other cardiovascular diseases Migraine with aura, intractable, with status migrainosus (CMS/HCC)- Primary Migraine with aura, intractable, with status migrainosus (CMS/HCC)- Primary Insomnia, psychophysiological RLS (restless legs syndrome) Restless legs syndrome (RLS) Family history of cerebral aneurysm Family history of other cardiovascular diseases RICHA (obstructive sleep apnea) Obstructive sleep apnea (adult) (pediatric) Poor sleep hygiene Other specific disorder of sleep of nonorganic origin Encounter to establish care- Primary Wellness examination Primary hypertension (CMS/HCC) Unspecified essential hypertension Hypothyroidism, unspecified type (CMS/HCC) Anxiety Anxiety state, unspecified Major depressive disorder, recurrent episode, moderate (CMS/HCC) Major depressive disorder, recurrent episode, moderate Alcohol abuse Nondependent alcohol abuse, unspecified drinking behavior RICHA (obstructive sleep apnea) Obstructive sleep apnea (adult) (pediatric) Encounter for screening mammogram for malignant neoplasm of breast Cervical spondylosis without myelopathy Acute cystitis without hematuria- Primary Primary hypertension (CMS/HCC) Unspecified essential hypertension Dyslipidemia (CMS/HCC) Other and unspecified hyperlipidemia RICHA (obstructive sleep apnea) Obstructive sleep apnea (adult) (pediatric) High cholesterol (CMS/HCC) Pure hypercholesterolemia Hypothyroidism, unspecified type (CMS/HCC)- Primary [facility] Diagnosis Migraine with aura, intractable, with status migrainosus (CMS/HCC)- Primary Family history of cerebral aneurysm Family history of other cardiovascular diseases Migraine with aura, intractable, with status migrainosus (CMS/HCC)- Primary Brain tumor (CMS/HCC) Neoplasm of unspecified nature of brain Family history of cerebral aneurysm Family history of other cardiovascular diseases Migraine with aura, intractable, with status migrainosus (CMS/HCC)- Primary Migraine with aura, intractable, with status migrainosus (CMS/HCC)- Primary Insomnia, psychophysiological RLS (restless legs syndrome) Restless legs syndrome (RLS) Family history of cerebral aneurysm Family history of other cardiovascular diseases RICHA (obstructive sleep apnea) Obstructive sleep apnea (adult) (pediatric) Poor sleep hygiene Other specific disorder of sleep of nonorganic origin Encounter to establish care- Primary Wellness examination Primary hypertension (CMS/HCC) Unspecified essential hypertension Hypothyroidism, unspecified type (CMS/HCC) Anxiety Anxiety state, unspecified Major depressive disorder, recurrent episode, moderate (CMS/HCC) Major depressive disorder, recurrent episode, moderate Alcohol abuse Nondependent alcohol abuse, unspecified drinking behavior RICHA (obstructive sleep apnea) Obstructive sleep apnea (adult) (pediatric) Encounter for screening mammogram for malignant neoplasm of breast Cervical spondylosis without myelopathy Acute cystitis without hematuria- Primary Primary hypertension (CMS/HCC) Unspecified essential hypertension Dyslipidemia (CMS/HCC) Other and unspecified hyperlipidemia RICHA (obstructive sleep apnea) Obstructive sleep apnea (adult) (pediatric) High cholesterol (CMS/HCC) Pure hypercholesterolemia PTSD (post-traumatic stress disorder) (CMS/HCC) Posttraumatic stress disorder Alcohol abuse Nondependent alcohol abuse, unspecified drinking behavior [facility]* Diagnosis Migraine with aura, intractable, with status migrainosus (CMS/HCC)- Primary Family history of cerebral aneurysm Family history of other cardiovascular diseases Migraine with aura, intractable, with status migrainosus (CMS/HCC)- Primary Brain tumor (CMS/HCC) Neoplasm of unspecified nature of brain Family history of cerebral aneurysm Family history of other cardiovascular diseases Migraine with aura, intractable, with status migrainosus (CMS/HCC)- Primary Migraine with aura, intractable, with status migrainosus (CMS/HCC)- Primary Insomnia, psychophysiological RLS (restless legs syndrome) Restless legs syndrome (RLS) Family history of cerebral aneurysm Family history of other cardiovascular diseases RICHA (obstructive sleep apnea) Obstructive sleep apnea (adult) (pediatric) Poor sleep hygiene Other specific disorder of sleep of nonorganic origin Encounter to establish care- Primary Wellness examination Primary hypertension (CMS/HCC) Unspecified essential hypertension Hypothyroidism, unspecified type (CMS/HCC) Anxiety Anxiety state, unspecified Major depressive disorder, recurrent episode, moderate (CMS/HCC) Major depressive disorder, recurrent episode, moderate Alcohol abuse Nondependent alcohol abuse, unspecified drinking behavior RICHA (obstructive sleep apnea) Obstructive sleep apnea (adult) (pediatric) Encounter for screening mammogram for malignant neoplasm of breast Cervical spondylosis without myelopathy Acute cystitis without hematuria- Primary Primary hypertension (CMS/HCC) Unspecified essential hypertension Dyslipidemia (CMS/HCC) Other and unspecified hyperlipidemia RICHA (obstructive sleep apnea) Obstructive sleep apnea (adult) (pediatric) High cholesterol (CMS/HCC) Pure hypercholesterolemia Gastroesophageal reflux disease, unspecified whether esophagitis present [facility]* Diagnosis Migraine with aura, intractable, with status migrainosus (CMS/HCC)- Primary Family history of cerebral aneurysm Family history of other cardiovascular diseases Migraine with aura, intractable, with status migrainosus (CMS/HCC)- Primary Brain tumor (CMS/HCC) Neoplasm of unspecified nature of brain Family history of cerebral aneurysm Family history of other cardiovascular diseases Migraine with aura, intractable, with status migrainosus (CMS/HCC)- Primary Migraine with aura, intractable, with status migrainosus (CMS/HCC)- Primary Insomnia, psychophysiological RLS (restless legs syndrome) Restless legs syndrome (RLS) Family history of cerebral aneurysm Family history of other cardiovascular diseases RICHA (obstructive sleep apnea) Obstructive sleep apnea (adult) (pediatric) Poor sleep hygiene Other specific disorder of sleep of nonorganic origin Encounter to establish care- Primary Wellness examination Primary hypertension (CMS/HCC) Unspecified essential hypertension Hypothyroidism, unspecified type (CMS/HCC) Anxiety Anxiety state, unspecified Major depressive disorder, recurrent episode, moderate (CMS/HCC) Major depressive disorder, recurrent episode, moderate Alcohol abuse Nondependent alcohol abuse, unspecified drinking behavior RICHA (obstructive sleep apnea) Obstructive sleep apnea (adult) (pediatric) Encounter for screening mammogram for malignant neoplasm of breast Cervical spondylosis without myelopathy Acute cystitis without hematuria- Primary Primary hypertension (CMS/HCC) Unspecified essential hypertension Dyslipidemia (CMS/HCC) Other and unspecified hyperlipidemia RICHA (obstructive sleep apnea) Obstructive sleep apnea (adult) (pediatric) High cholesterol (CMS/HCC) Pure hypercholesterolemia Hypothyroidism, unspecified type (CMS/HCC) documented [facility]* Diagnosis Migraine with aura, intractable, with status migrainosus (CMS/HCC)- Primary Family history of cerebral aneurysm Family history of other cardiovascular diseases Migraine with aura, intractable, with status migrainosus (CMS/HCC)- Primary Brain tumor (CMS/HCC) Neoplasm of unspecified nature of brain Family history of cerebral aneurysm Family history of other cardiovascular diseases Migraine with aura, intractable, with status migrainosus (CMS/HCC)- Primary Migraine with aura, intractable, with status migrainosus (CMS/HCC)- Primary Insomnia, psychophysiological RLS (restless legs syndrome) Restless legs syndrome (RLS) Family history of cerebral aneurysm Family history of other cardiovascular diseases RICHA (obstructive sleep apnea) Obstructive sleep apnea (adult) (pediatric) Poor sleep hygiene Other specific disorder of sleep of nonorganic origin Encounter to establish care- Primary Wellness examination Primary hypertension (CMS/HCC) Unspecified essential hypertension Hypothyroidism, unspecified type (CMS/HCC) Anxiety Anxiety state, unspecified Major depressive disorder, recurrent episode, moderate (CMS/HCC) Major depressive disorder, recurrent episode, moderate Alcohol abuse Nondependent alcohol abuse, unspecified drinking behavior RICHA (obstructive sleep apnea) Obstructive sleep apnea (adult) (pediatric) Encounter for screening mammogram for malignant neoplasm of breast Cervical spondylosis without myelopathy Acute cystitis without hematuria- Primary Primary hypertension (CMS/HCC) Unspecified essential hypertension Dyslipidemia (CMS/HCC) Other and unspecified hyperlipidemia RICHA (obstructive sleep apnea) Obstructive sleep apnea (adult) (pediatric) High cholesterol (CMS/HCC) Pure hypercholesterolemia PTSD (post-traumatic stress disorder) (CMS/HCC) Posttraumatic stress disorder [facility] in [facility]* Diagnosis Migraine with aura, intractable, with status migrainosus (CMS/HCC)- Primary Family history of cerebral aneurysm Family history of other cardiovascular diseases Migraine with aura, intractable, with status migrainosus (CMS/HCC)- Primary Brain tumor (CMS/HCC) Neoplasm of unspecified nature of brain Family history of cerebral aneurysm Family history of other cardiovascular diseases Migraine with aura, intractable, with status migrainosus (CMS/HCC)- Primary Migraine with aura, intractable, with status migrainosus (CMS/HCC)- Primary Insomnia, psychophysiological RLS (restless legs syndrome) Restless legs syndrome (RLS) Family history of cerebral aneurysm Family history of other cardiovascular diseases RICHA (obstructive sleep apnea) Obstructive sleep apnea (adult) (pediatric) Poor sleep hygiene Other specific disorder of sleep of nonorganic origin Encounter to establish care- Primary Wellness examination Primary hypertension (CMS/HCC) Unspecified essential hypertension Hypothyroidism, unspecified type (CMS/HCC) Anxiety Anxiety state, unspecified Major depressive disorder, recurrent episode, moderate (CMS/HCC) Major depressive disorder, recurrent episode, moderate Alcohol abuse Nondependent alcohol abuse, unspecified drinking behavior RICHA (obstructive sleep apnea) Obstructive sleep apnea (adult) (pediatric) Encounter for screening mammogram for malignant neoplasm of breast Cervical spondylosis without myelopathy Acute cystitis without hematuria- Primary Primary hypertension (CMS/HCC) Unspecified essential hypertension Dyslipidemia (CMS/HCC) Other and unspecified hyperlipidemia RICHA (obstructive sleep apnea) Obstructive sleep apnea (adult) (pediatric) High cholesterol (CMS/HCC) Pure hypercholesterolemia Cervical pain- Primary Cervicalgia Cervical arthritis Cervical spondylosis without myelopathy documented in [facility]* Diagnosis Migraine with aura, intractable, with status migrainosus (CMS/HCC)- Primary Family history of cerebral aneurysm Family history of other cardiovascular diseases Migraine with aura, intractable, with status migrainosus (CMS/HCC)- Primary Brain tumor (CMS/HCC) Neoplasm of unspecified nature of brain Family history of cerebral aneurysm Family history of other cardiovascular diseases Migraine with aura, intractable, with status migrainosus (CMS/HCC)- Primary Migraine with aura, intractable, with status migrainosus (CMS/HCC)- Primary Insomnia, psychophysiological RLS (restless legs syndrome) Restless legs syndrome (RLS) Family history of cerebral aneurysm Family history of other cardiovascular diseases RICHA (obstructive sleep apnea) Obstructive sleep apnea (adult) (pediatric) Poor sleep hygiene Other specific disorder of sleep of nonorganic origin Encounter to establish care- Primary Wellness examination Primary hypertension (CMS/HCC) Unspecified essential hypertension Hypothyroidism, unspecified type (CMS/HCC) Anxiety Anxiety state, unspecified Major depressive disorder, recurrent episode, moderate (CMS/HCC) Major depressive disorder, recurrent episode, moderate Alcohol abuse Nondependent alcohol abuse, unspecified drinking behavior RICHA (obstructive sleep apnea) Obstructive sleep apnea (adult) (pediatric) Encounter for screening mammogram for malignant neoplasm of breast Cervical spondylosis without myelopathy Acute cystitis without hematuria- Primary Primary hypertension (CMS/HCC) Unspecified essential hypertension Dyslipidemia (CMS/HCC) Other and unspecified hyperlipidemia RICHA (obstructive sleep apnea) Obstructive sleep apnea (adult) (pediatric) High cholesterol (CMS/HCC) Pure hypercholesterolemia Cervical spondylosis without myelopathy documented in [facility]* Diagnosis Migraine with aura, intractable, with status migrainosus (CMS/HCC)- Primary Family history of cerebral aneurysm Family history of other cardiovascular diseases Migraine with aura, intractable, with status migrainosus (CMS/HCC)- Primary Brain tumor (CMS/HCC) Neoplasm of unspecified nature of brain Family history of cerebral aneurysm Family history of other cardiovascular diseases Migraine with aura, intractable, with status migrainosus (CMS/HCC)- Primary Migraine with aura, intractable, with status migrainosus (CMS/HCC)- Primary Insomnia, psychophysiological RLS (restless legs syndrome) Restless legs syndrome (RLS) Family history of cerebral aneurysm Family history of other cardiovascular diseases RICHA (obstructive sleep apnea) Obstructive sleep apnea (adult) (pediatric) Poor sleep hygiene Other specific disorder of sleep of nonorganic origin Encounter to establish care- Primary Wellness examination Primary hypertension (CMS/HCC) Unspecified essential hypertension Hypothyroidism, unspecified type (CMS/HCC) Anxiety Anxiety state, unspecified Major depressive disorder, recurrent episode, moderate (CMS/HCC) Major depressive disorder, recurrent episode, moderate Alcohol abuse Nondependent alcohol abuse, unspecified drinking behavior RICHA (obstructive sleep apnea) Obstructive sleep apnea (adult) (pediatric) Encounter for screening mammogram for malignant neoplasm of breast Cervical spondylosis without myelopathy Acute cystitis without hematuria- Primary Primary hypertension (CMS/HCC) Unspecified essential hypertension Dyslipidemia (CMS/HCC) Other and unspecified hyperlipidemia RICHA (obstructive sleep apnea) Obstructive sleep apnea (adult) (pediatric) High cholesterol (CMS/HCC) Pure hypercholesterolemia Chronic rhinitis- Primary documented in this encounter [facility]* Diagnosis Migraine with aura, intractable, with status migrainosus (CMS/HCC)- Primary Insomnia, psychophysiological RLS (restless legs syndrome) Restless legs syndrome (RLS) Family history of cerebral aneurysm Family history of other cardiovascular diseases RICHA (obstructive sleep apnea) Obstructive sleep apnea (adult) (pediatric) Poor sleep hygiene Other specific disorder of sleep of nonorganic origin documented in this encounter [facility]* Diagnosis Migraine with aura, intractable, with status migrainosus (CMS/HCC)- Primary Family history of cerebral aneurysm Family history of other cardiovascular diseases Migraine with aura, intractable, with status migrainosus (CMS/HCC)- Primary Brain tumor (CMS/HCC) Neoplasm of unspecified nature of brain Family history of cerebral aneurysm Family history of other cardiovascular diseases Migraine with aura, intractable, with status migrainosus (CMS/HCC)- Primary Migraine with aura, intractable, with status migrainosus (CMS/HCC)- Primary Insomnia, psychophysiological RLS (restless legs syndrome) Restless legs syndrome (RLS) Family history of cerebral aneurysm Family history of other cardiovascular diseases RICHA (obstructive sleep apnea) Obstructive sleep apnea (adult) (pediatric) Poor sleep hygiene Other specific disorder of sleep of nonorganic origin Encounter to establish care- Primary Wellness examination Primary hypertension (CMS/HCC) Unspecified essential hypertension Hypothyroidism, unspecified type (CMS/HCC) Anxiety Anxiety state, unspecified Major depressive disorder, recurrent episode, moderate (CMS/HCC) Major depressive disorder, recurrent episode, moderate Alcohol abuse Nondependent alcohol abuse, unspecified drinking behavior RICHA (obstructive sleep apnea) Obstructive sleep apnea (adult) (pediatric) Encounter for screening mammogram for malignant neoplasm of breast Cervical spondylosis without myelopathy Acute cystitis without hematuria- Primary Primary hypertension (CMS/HCC) Unspecified essential hypertension Dyslipidemia (CMS/HCC) Other and unspecified hyperlipidemia RICHA (obstructive sleep apnea) Obstructive sleep apnea (adult) (pediatric) High cholesterol (CMS/HCC) Pure hypercholesterolemia Cervical spondylosis without myelopathy documented in this [facility]* Diagnosis Migraine with aura, intractable, with status migrainosus (CMS/HCC)- Primary Family history of cerebral aneurysm Family history of other cardiovascular diseases Migraine with aura, intractable, with status migrainosus (CMS/HCC)- Primary Brain tumor (CMS/HCC) Neoplasm of unspecified nature of brain Family history of cerebral aneurysm Family history of other cardiovascular diseases Migraine with aura, intractable, with status migrainosus (CMS/HCC)- Primary Migraine with aura, intractable, with status migrainosus (CMS/HCC)- Primary Insomnia, psychophysiological RLS (restless legs syndrome) Restless legs syndrome (RLS) Family history of cerebral aneurysm Family history of other cardiovascular diseases RICHA (obstructive sleep apnea) Obstructive sleep apnea (adult) (pediatric) Poor sleep hygiene Other specific disorder of sleep of nonorganic origin Encounter to establish care- Primary Wellness examination Primary hypertension (CMS/HCC) Unspecified essential hypertension Hypothyroidism, unspecified type (CMS/HCC) Anxiety Anxiety state, unspecified Major depressive disorder, recurrent episode, moderate (CMS/HCC) Major depressive disorder, recurrent episode, moderate Alcohol abuse Nondependent alcohol abuse, unspecified drinking behavior RICHA (obstructive sleep apnea) Obstructive sleep apnea (adult) (pediatric) Encounter for screening mammogram for malignant neoplasm of breast Cervical spondylosis without myelopathy Acute cystitis without hematuria- Primary Primary hypertension (CMS/HCC) Unspecified essential hypertension Dyslipidemia (CMS/HCC) Other and unspecified hyperlipidemia RICHA (obstructive sleep apnea) Obstructive sleep apnea (adult) (pediatric) High cholesterol (CMS/HCC) Pure hypercholesterolemia Chronic pain syndrome- Primary documented in this [facility]* Diagnosis Migraine with aura, intractable, with status migrainosus (CMS/HCC)- Primary Family history of cerebral aneurysm Family history of other cardiovascular diseases Migraine with aura, intractable, with status migrainosus (CMS/HCC)- Primary Brain tumor (CMS/HCC) Neoplasm of unspecified nature of brain Family history of cerebral aneurysm Family history of other cardiovascular diseases Migraine with aura, intractable, with status migrainosus (CMS/HCC)- Primary Migraine with aura, intractable, with status migrainosus (CMS/HCC)- Primary Insomnia, psychophysiological RLS (restless legs syndrome) Restless legs syndrome (RLS) Family history of cerebral aneurysm Family history of other cardiovascular diseases RICHA (obstructive sleep apnea) Obstructive sleep apnea (adult) (pediatric) Poor sleep hygiene Other specific disorder of sleep of nonorganic origin Encounter to establish care- Primary Wellness examination Primary hypertension (CMS/HCC) Unspecified essential hypertension Hypothyroidism, unspecified type (CMS/HCC) Anxiety Anxiety state, unspecified Major depressive disorder, recurrent episode, moderate (CMS/HCC) Major depressive disorder, recurrent episode, moderate Alcohol abuse Nondependent alcohol abuse, unspecified drinking behavior RICHA (obstructive sleep apnea) Obstructive sleep apnea (adult) (pediatric) Encounter for screening mammogram for malignant neoplasm of breast Cervical spondylosis without myelopathy Acute cystitis without hematuria- Primary Primary hypertension (CMS/HCC) Unspecified essential hypertension Dyslipidemia (CMS/HCC) Other and unspecified hyperlipidemia RICHA (obstructive sleep apnea) Obstructive sleep apnea (adult) (pediatric) High cholesterol (CMS/HCC) Pure hypercholesterolemia Gastroesophageal reflux disease, unspecified whether esophagitis present documented in [facility]* Diagnosis Migraine with aura, intractable, with status migrainosus (CMS/HCC)- Primary Family history of cerebral aneurysm Family history of other cardiovascular diseases Migraine with aura, intractable, with status migrainosus (CMS/HCC)- Primary Brain tumor (CMS/HCC) Neoplasm of unspecified nature of brain Family history of cerebral aneurysm Family history of other cardiovascular diseases Migraine with aura, intractable, with status migrainosus (CMS/HCC)- Primary Migraine with aura, intractable, with status migrainosus (CMS/HCC)- Primary Insomnia, psychophysiological RLS (restless legs syndrome) Restless legs syndrome (RLS) Family history of cerebral aneurysm Family history of other cardiovascular diseases RICHA (obstructive sleep apnea) Obstructive sleep apnea (adult) (pediatric) Poor sleep hygiene Other specific disorder of sleep of nonorganic origin Encounter to establish care- Primary Wellness examination Primary hypertension (CMS/HCC) Unspecified essential hypertension Hypothyroidism, unspecified type (CMS/HCC) Anxiety Anxiety state, unspecified Major depressive disorder, recurrent episode, moderate (CMS/HCC) Major depressive disorder, recurrent episode, moderate Alcohol abuse Nondependent alcohol abuse, unspecified drinking behavior RICHA (obstructive sleep apnea) Obstructive sleep apnea (adult) (pediatric) Encounter for screening mammogram for malignant neoplasm of breast Cervical spondylosis without myelopathy Acute cystitis without hematuria- Primary Primary hypertension (CMS/HCC) Unspecified essential hypertension Dyslipidemia (CMS/HCC) Other and unspecified hyperlipidemia RICHA (obstructive sleep apnea) Obstructive sleep apnea (adult) (pediatric) High cholesterol (CMS/HCC) Pure hypercholesterolemia Migraine with aura, intractable, with status migrainosus (CMS/HCC)- Primary Insomnia, psychophysiological Poor sleep hygiene Other specific disorder of sleep of nonorganic origin RICHA (obstructive sleep apnea) Obstructive sleep apnea (adult) (pediatric) Family history of cerebral aneurysm Family history of other cardiovascular diseases RLS (restless legs syndrome) Restless legs syndrome (RLS) Degenerative disc disease, cervical documented in this [facility]* Diagnosis Migraine with aura, intractable, with status migrainosus (CMS/HCC)- Primary Family history of cerebral aneurysm Family history of other cardiovascular diseases Migraine with aura, intractable, with status migrainosus (CMS/HCC)- Primary Brain tumor (CMS/HCC) Neoplasm of unspecified nature of brain Family history of cerebral aneurysm Family history of other cardiovascular diseases Migraine with aura, intractable, with status migrainosus (CMS/HCC)- Primary Migraine with aura, intractable, with status migrainosus (CMS/HCC)- Primary Insomnia, psychophysiological RLS (restless legs syndrome) Restless legs syndrome (RLS) Family history of cerebral aneurysm Family history of other cardiovascular diseases RICHA (obstructive sleep apnea) Obstructive sleep apnea (adult) (pediatric) Poor sleep hygiene Other specific disorder of sleep of nonorganic origin Encounter to establish care- Primary Wellness examination Primary hypertension (CMS/HCC) Unspecified essential hypertension Hypothyroidism, unspecified type (CMS/HCC) Anxiety Anxiety state, unspecified Major depressive disorder, recurrent episode, moderate (CMS/HCC) Major depressive disorder, recurrent episode, moderate Alcohol abuse Nondependent alcohol abuse, unspecified drinking behavior RICHA (obstructive sleep apnea) Obstructive sleep apnea (adult) (pediatric) Encounter for screening mammogram for malignant neoplasm of breast Cervical spondylosis without myelopathy Acute cystitis without hematuria- Primary Primary hypertension (CMS/HCC) Unspecified essential hypertension Dyslipidemia (CMS/HCC) Other and unspecified hyperlipidemia RICHA (obstructive sleep apnea) Obstructive sleep apnea (adult) (pediatric) High cholesterol (CMS/HCC) Pure hypercholesterolemia Migraine with aura, intractable, with status migrainosus (CMS/HCC)- Primary Insomnia, psychophysiological Poor sleep hygiene Other specific disorder of sleep of nonorganic origin RICHA (obstructive sleep apnea) Obstructive sleep apnea (adult) (pediatric) Family history of cerebral aneurysm Family history of other cardiovascular diseases RLS (restless legs syndrome) Restless legs syndrome (RLS) Degenerative disc disease, cervical Major depressive disorder, recurrent episode, moderate (CMS/HCC)- Primary Major depressive disorder, recurrent episode, moderate Cervical spondylosis without myelopathy Dyslipidemia (CMS/HCC) Other and unspecified hyperlipidemia Primary hypertension (CMS/HCC) Unspecified essential hypertension documented [facility] Diagnosis Migraine with aura, intractable, with status migrainosus (CMS/HCC)- Primary Family history of cerebral aneurysm Family history of other cardiovascular diseases Migraine with aura, intractable, with status migrainosus (CMS/HCC)- Primary Brain tumor (CMS/HCC) Neoplasm of unspecified nature of brain Family history of cerebral aneurysm Family history of other cardiovascular diseases Migraine with aura, intractable, with status migrainosus (CMS/HCC)- Primary Migraine with aura, intractable, with status migrainosus (CMS/HCC)- Primary Insomnia, psychophysiological RLS (restless legs syndrome) Restless legs syndrome (RLS) Family history of cerebral aneurysm Family history of other cardiovascular diseases RICHA (obstructive sleep apnea) Obstructive sleep apnea (adult) (pediatric) Poor sleep hygiene Other specific disorder of sleep of nonorganic origin Encounter to establish care- Primary Wellness examination Primary hypertension (CMS/HCC) Unspecified essential hypertension Hypothyroidism, unspecified type (CMS/HCC) Anxiety Anxiety state, unspecified Major depressive disorder, recurrent episode, moderate (CMS/HCC) Major depressive disorder, recurrent episode, moderate Alcohol abuse Nondependent alcohol abuse, unspecified drinking behavior RICHA (obstructive sleep apnea) Obstructive sleep apnea (adult) (pediatric) Encounter for screening mammogram for malignant neoplasm of breast Cervical spondylosis without myelopathy Acute cystitis without hematuria- Primary Primary hypertension (CMS/HCC) Unspecified essential hypertension Dyslipidemia (CMS/HCC) Other and unspecified hyperlipidemia RICHA (obstructive sleep apnea) Obstructive sleep apnea (adult) (pediatric) High cholesterol (CMS/HCC) Pure hypercholesterolemia Migraine with aura, intractable, with status migrainosus (CMS/HCC)- Primary Insomnia, psychophysiological Poor sleep hygiene Other specific disorder of sleep of nonorganic origin RICHA (obstructive sleep apnea) Obstructive sleep apnea (adult) (pediatric) Family history of cerebral aneurysm Family history of other cardiovascular diseases RLS (restless legs syndrome) Restless legs syndrome (RLS) Degenerative disc disease, cervical Major depressive disorder, recurrent episode, moderate (CMS/HCC)- Primary Major depressive disorder, recurrent episode, moderate Cervical spondylosis without myelopathy Dyslipidemia (CMS/HCC) Other and unspecified hyperlipidemia Primary hypertension (CMS/HCC) Unspecified essential hypertension Wellness examination documented in this encounter [facility]* Diagnosis Migraine with aura, intractable, with status migrainosus (CMS/HCC)- Primary Family history of cerebral aneurysm Family history of other cardiovascular diseases Migraine with aura, intractable, with status migrainosus (CMS/HCC)- Primary Brain tumor (CMS/HCC) Neoplasm of unspecified nature of brain Family history of cerebral aneurysm Family history of other cardiovascular diseases Migraine with aura, intractable, with status migrainosus (CMS/HCC)- Primary Migraine with aura, intractable, with status migrainosus (CMS/HCC)- Primary Insomnia, psychophysiological RLS (restless legs syndrome) Restless legs syndrome (RLS) Family history of cerebral aneurysm Family history of other cardiovascular diseases RICHA (obstructive sleep apnea) Obstructive sleep apnea (adult) (pediatric) Poor sleep hygiene Other specific disorder of sleep of nonorganic origin Encounter to establish care- Primary Wellness examination Primary hypertension (CMS/HCC) Unspecified essential hypertension Hypothyroidism, unspecified type (CMS/HCC) Anxiety Anxiety state, unspecified Major depressive disorder, recurrent episode, moderate (CMS/HCC) Major depressive disorder, recurrent episode, moderate Alcohol abuse Nondependent alcohol abuse, unspecified drinking behavior RICHA (obstructive sleep apnea) Obstructive sleep apnea (adult) (pediatric) Encounter for screening mammogram for malignant neoplasm of breast Cervical spondylosis without myelopathy Acute cystitis without hematuria- Primary Primary hypertension (CMS/HCC) Unspecified essential hypertension Dyslipidemia (CMS/HCC) Other and unspecified hyperlipidemia RICHA (obstructive sleep apnea) Obstructive sleep apnea (adult) (pediatric) High cholesterol (CMS/HCC) Pure hypercholesterolemia Migraine with aura, intractable, with status migrainosus (CMS/HCC)- Primary Insomnia, psychophysiological Poor sleep hygiene Other specific disorder of sleep of nonorganic origin RICHA (obstructive sleep apnea) Obstructive sleep apnea (adult) (pediatric) Family history of cerebral aneurysm Family history of other cardiovascular diseases RLS (restless legs syndrome) Restless legs syndrome (RLS) Degenerative disc disease, cervical Major depressive disorder, recurrent episode, moderate (CMS/HCC)- Primary Major depressive disorder, recurrent episode, moderate Cervical spondylosis without myelopathy Dyslipidemia (CMS/HCC) Other and unspecified hyperlipidemia Primary hypertension (CMS/HCC) Unspecified essential hypertension Recurrent epistaxis- Primary documented in [facility]* Diagnosis Migraine with aura, intractable, with status migrainosus (CMS/HCC)- Primary Family history of cerebral aneurysm Family history of other cardiovascular diseases Migraine with aura, intractable, with status migrainosus (CMS/HCC)- Primary Brain tumor (CMS/HCC) Neoplasm of unspecified nature of brain Family history of cerebral aneurysm Family history of other cardiovascular diseases Migraine with aura, intractable, with status migrainosus (CMS/HCC)- Primary Migraine with aura, intractable, with status migrainosus (CMS/HCC)- Primary Insomnia, psychophysiological RLS (restless legs syndrome) Restless legs syndrome (RLS) Family history of cerebral aneurysm Family history of other cardiovascular diseases RICHA (obstructive sleep apnea) Obstructive sleep apnea (adult) (pediatric) Poor sleep hygiene Other specific disorder of sleep of nonorganic origin Encounter to establish care- Primary Wellness examination Primary hypertension (CMS/HCC) Unspecified essential hypertension Hypothyroidism, unspecified type (CMS/HCC) Anxiety Anxiety state, unspecified Major depressive disorder, recurrent episode, moderate (CMS/HCC) Major depressive disorder, recurrent episode, moderate Alcohol abuse Nondependent alcohol abuse, unspecified drinking behavior RICHA (obstructive sleep apnea) Obstructive sleep apnea (adult) (pediatric) Encounter for screening mammogram for malignant neoplasm of breast Cervical spondylosis without myelopathy Acute cystitis without hematuria- Primary Primary hypertension (CMS/HCC) Unspecified essential hypertension Dyslipidemia (CMS/HCC) Other and unspecified hyperlipidemia RICHA (obstructive sleep apnea) Obstructive sleep apnea (adult) (pediatric) High cholesterol (CMS/HCC) Pure hypercholesterolemia Migraine with aura, intractable, with status migrainosus (CMS/HCC)- Primary Insomnia, psychophysiological Poor sleep hygiene Other specific disorder of sleep of nonorganic origin RICHA (obstructive sleep apnea) Obstructive sleep apnea (adult) (pediatric) Family history of cerebral aneurysm Family history of other cardiovascular diseases RLS (restless legs syndrome) Restless legs syndrome (RLS) Degenerative disc disease, cervical Major depressive disorder, recurrent episode, moderate (CMS/HCC)- Primary Major depressive disorder, recurrent episode, moderate Cervical spondylosis without myelopathy Dyslipidemia (CMS/HCC) Other and unspecified hyperlipidemia Primary hypertension (CMS/HCC) Unspecified essential hypertension Acute pain of right shoulder- Primary Arthritis of right shoulder region Arthritis of right acromioclavicular joint Impingement of right shoulder documented in this [facility]* Diagnosis Migraine with aura, intractable, with status migrainosus (CMS/HCC)- Primary Family history of cerebral aneurysm Family history of other cardiovascular diseases Migraine with aura, intractable, with status migrainosus (CMS/HCC)- Primary Brain tumor (CMS/HCC) Neoplasm of unspecified nature of brain Family history of cerebral aneurysm Family history of other cardiovascular diseases Migraine with aura, intractable, with status migrainosus (CMS/HCC)- Primary Migraine with aura, intractable, with status migrainosus (CMS/HCC)- Primary Insomnia, psychophysiological RLS (restless legs syndrome) Restless legs syndrome (RLS) Family history of cerebral aneurysm Family history of other cardiovascular diseases RICHA (obstructive sleep apnea) Obstructive sleep apnea (adult) (pediatric) Poor sleep hygiene Other specific disorder of sleep of nonorganic origin Encounter to establish care- Primary Wellness examination Primary hypertension (CMS/HCC) Unspecified essential hypertension Hypothyroidism, unspecified type (CMS/HCC) Anxiety Anxiety state, unspecified Major depressive disorder, recurrent episode, moderate (CMS/HCC) Major depressive disorder, recurrent episode, moderate Alcohol abuse Nondependent alcohol abuse, unspecified drinking behavior RICHA (obstructive sleep apnea) Obstructive sleep apnea (adult) (pediatric) Encounter for screening mammogram for malignant neoplasm of breast Cervical spondylosis without myelopathy Acute cystitis without hematuria- Primary Primary hypertension (CMS/HCC) Unspecified essential hypertension Dyslipidemia (CMS/HCC) Other and unspecified hyperlipidemia RICHA (obstructive sleep apnea) Obstructive sleep apnea (adult) (pediatric) High cholesterol (CMS/HCC) Pure hypercholesterolemia Migraine with aura, intractable, with status migrainosus (CMS/HCC)- Primary Insomnia, psychophysiological Poor sleep hygiene Other specific disorder of sleep of nonorganic origin RICHA (obstructive sleep apnea) Obstructive sleep apnea (adult) (pediatric) Family history of cerebral aneurysm Family history of other cardiovascular diseases RLS (restless legs syndrome) Restless legs syndrome (RLS) Degenerative disc disease, cervical Major depressive disorder, recurrent episode, moderate (CMS/HCC)- Primary Major depressive disorder, recurrent episode, moderate Cervical spondylosis without myelopathy Dyslipidemia (CMS/HCC) Other and unspecified hyperlipidemia Primary hypertension (CMS/HCC) Unspecified essential hypertension RICHA (obstructive sleep apnea)- Primary Obstructive sleep apnea (adult) (pediatric) Migraine with aura, intractable, with status migrainosus (CMS/HCC) RLS (restless legs syndrome) Restless legs syndrome (RLS) Poor sleep hygiene Other specific disorder of sleep of nonorganic origin Family history of cerebral aneurysm Family history of other cardiovascular diseases Insomnia, psychophysiological documented in [facility]* Diagnosis Migraine with aura, intractable, with status migrainosus (CMS/HCC)- Primary Family history of cerebral aneurysm Family history of other cardiovascular diseases Migraine with aura, intractable, with status migrainosus (CMS/HCC)- Primary Brain tumor (CMS/HCC) Neoplasm of unspecified nature of brain Family history of cerebral aneurysm Family history of other cardiovascular diseases Migraine with aura, intractable, with status migrainosus (CMS/HCC)- Primary Migraine with aura, intractable, with status migrainosus (CMS/HCC)- Primary Insomnia, psychophysiological RLS (restless legs syndrome) Restless legs syndrome (RLS) Family history of cerebral aneurysm Family history of other cardiovascular diseases RICHA (obstructive sleep apnea) Obstructive sleep apnea (adult) (pediatric) Poor sleep hygiene Other specific disorder of sleep of nonorganic origin Encounter to establish care- Primary Wellness examination Primary hypertension (CMS/HCC) Unspecified essential hypertension Hypothyroidism, unspecified type (CMS/HCC) Anxiety Anxiety state, unspecified Major depressive disorder, recurrent episode, moderate (CMS/HCC) Major depressive disorder, recurrent episode, moderate Alcohol abuse Nondependent alcohol abuse, unspecified drinking behavior RICHA (obstructive sleep apnea) Obstructive sleep apnea (adult) (pediatric) Encounter for screening mammogram for malignant neoplasm of breast Cervical spondylosis without myelopathy Acute cystitis without hematuria- Primary Primary hypertension (CMS/HCC) Unspecified essential hypertension Dyslipidemia (CMS/HCC) Other and unspecified hyperlipidemia RICHA (obstructive sleep apnea) Obstructive sleep apnea (adult) (pediatric) High cholesterol (CMS/HCC) Pure hypercholesterolemia Migraine with aura, intractable, with status migrainosus (CMS/HCC)- Primary Insomnia, psychophysiological Poor sleep hygiene Other specific disorder of sleep of nonorganic origin RICHA (obstructive sleep apnea) Obstructive sleep apnea (adult) (pediatric) Family history of cerebral aneurysm Family history of other cardiovascular diseases RLS (restless legs syndrome) Restless legs syndrome (RLS) Degenerative disc disease, cervical Major depressive disorder, recurrent episode, moderate (CMS/HCC)- Primary Major depressive disorder, recurrent episode, moderate Cervical spondylosis without myelopathy Dyslipidemia (CMS/HCC) Other and unspecified hyperlipidemia Primary hypertension (CMS/HCC) Unspecified essential hypertension RICHA (obstructive sleep apnea)- Primary Obstructive sleep apnea (adult) (pediatric) Migraine with aura, intractable, with status migrainosus (CMS/HCC) RLS (restless legs syndrome) Restless legs syndrome (RLS) Poor sleep hygiene Other specific disorder of sleep of nonorganic origin Family history of cerebral aneurysm Family history of other cardiovascular diseases Insomnia, psychophysiological Cervical spondylosis without myelopathy Major depressive disorder, recurrent episode, moderate (CMS/HCC) Major depressive disorder, recurrent episode, moderate Chronic rhinitis documented in this [facility]* Diagnosis Migraine with aura, intractable, with status migrainosus (CMS/HCC)- Primary Family history of cerebral aneurysm Family history of other cardiovascular diseases Migraine with aura, intractable, with status migrainosus (CMS/HCC)- Primary Brain tumor (CMS/HCC) Neoplasm of unspecified nature of brain Family history of cerebral aneurysm Family history of other cardiovascular diseases Migraine with aura, intractable, with status migrainosus (CMS/HCC)- Primary Migraine with aura, intractable, with status migrainosus (CMS/HCC)- Primary Insomnia, psychophysiological RLS (restless legs syndrome) Restless legs syndrome (RLS) Family history of cerebral aneurysm Family history of other cardiovascular diseases RICHA (obstructive sleep apnea) Obstructive sleep apnea (adult) (pediatric) Poor sleep hygiene Other specific disorder of sleep of nonorganic origin Encounter to establish care- Primary Wellness examination Primary hypertension (CMS/HCC) Unspecified essential hypertension Hypothyroidism, unspecified type (CMS/HCC) Anxiety Anxiety state, unspecified Major depressive disorder, recurrent episode, moderate (CMS/HCC) Major depressive disorder, recurrent episode, moderate Alcohol abuse Nondependent alcohol abuse, unspecified drinking behavior RICHA (obstructive sleep apnea) Obstructive sleep apnea (adult) (pediatric) Encounter for screening mammogram for malignant neoplasm of breast Cervical spondylosis without myelopathy Acute cystitis without hematuria- Primary Primary hypertension (CMS/HCC) Unspecified essential hypertension Dyslipidemia (CMS/HCC) Other and unspecified hyperlipidemia RICHA (obstructive sleep apnea) Obstructive sleep apnea (adult) (pediatric) High cholesterol (CMS/HCC) Pure hypercholesterolemia Migraine with aura, intractable, with status migrainosus (CMS/HCC)- Primary Insomnia, psychophysiological Poor sleep hygiene Other specific disorder of sleep of nonorganic origin RICHA (obstructive sleep apnea) Obstructive sleep apnea (adult) (pediatric) Family history of cerebral aneurysm Family history of other cardiovascular diseases RLS (restless legs syndrome) Restless legs syndrome (RLS) Degenerative disc disease, cervical Major depressive disorder, recurrent episode, moderate (CMS/HCC)- Primary Major depressive disorder, recurrent episode, moderate Cervical spondylosis without myelopathy Dyslipidemia (CMS/HCC) Other and unspecified hyperlipidemia Primary hypertension (CMS/HCC) Unspecified essential hypertension RICHA (obstructive sleep apnea)- Primary Obstructive sleep apnea (adult) (pediatric) Migraine with aura, intractable, with status migrainosus (CMS/HCC) RLS (restless legs syndrome) Restless legs syndrome (RLS) Poor sleep hygiene Other specific disorder of sleep of nonorganic origin Family history of cerebral aneurysm Family history of other cardiovascular diseases Insomnia, psychophysiological Migraine with aura, intractable, with status migrainosus (CMS/HCC)- Primary documented in this encounter [facility]* Diagnosis Chronic neck pain- Primary Cervicalgia Cervical radiculopathy Brachial neuritis or radiculitis nos [facility] Cervical spondylosis without myelopathy- Primary Cervical spondylosis without myelopathy- Primary Cervical spondylosis without myelopathy [facility] Diagnosis Cervical spondylosis without myelopathy- Primary [facility] Diagnosis Migraine with aura, intractable, with status migrainosus (CMS/HCC)- Primary Family history of cerebral aneurysm Family history of other cardiovascular diseases Migraine with aura, intractable, with status migrainosus (CMS/HCC)- Primary Brain tumor (CMS/HCC) Neoplasm of unspecified nature of brain Family history of cerebral aneurysm Family history of other cardiovascular diseases Migraine with aura, intractable, with status migrainosus (CMS/HCC)- Primary Migraine with aura, intractable, with status migrainosus (CMS/HCC)- Primary Insomnia, psychophysiological RLS (restless legs syndrome) Restless legs syndrome (RLS) Family history of cerebral aneurysm Family history of other cardiovascular diseases RICHA (obstructive sleep apnea) Obstructive sleep apnea (adult) (pediatric) Poor sleep hygiene Other specific disorder of sleep of nonorganic origin Encounter to establish care- Primary Wellness examination Primary hypertension (CMS/HCC) Unspecified essential hypertension Hypothyroidism, unspecified type (CMS/HCC) Anxiety Anxiety state, unspecified Major depressive disorder, recurrent episode, moderate (CMS/HCC) Major depressive disorder, recurrent episode, moderate Alcohol abuse Nondependent alcohol abuse, unspecified drinking behavior RICHA (obstructive sleep apnea) Obstructive sleep apnea (adult) (pediatric) Encounter for screening mammogram for malignant neoplasm of breast Cervical spondylosis without myelopathy Acute cystitis without hematuria- Primary Primary hypertension (CMS/HCC) Unspecified essential hypertension Dyslipidemia (CMS/HCC) Other and unspecified hyperlipidemia RICHA (obstructive sleep apnea) Obstructive sleep apnea (adult) (pediatric) High cholesterol (CMS/HCC) Pure hypercholesterolemia Migraine with aura, intractable, with status migrainosus (CMS/HCC)- Primary Insomnia, psychophysiological Poor sleep hygiene Other specific disorder of sleep of nonorganic origin RICHA (obstructive sleep apnea) Obstructive sleep apnea (adult) (pediatric) Family history of cerebral aneurysm Family history of other cardiovascular diseases RLS (restless legs syndrome) Restless legs syndrome (RLS) Degenerative disc disease, cervical Major depressive disorder, recurrent episode, moderate (CMS/HCC)- Primary Major depressive disorder, recurrent episode, moderate Cervical spondylosis without myelopathy Dyslipidemia (CMS/HCC) Other and unspecified hyperlipidemia Primary hypertension (CMS/HCC) Unspecified essential hypertension RICHA (obstructive sleep apnea)- Primary Obstructive sleep apnea (adult) (pediatric) Migraine with aura, intractable, with status migrainosus (CMS/HCC) RLS (restless legs syndrome) Restless legs syndrome (RLS) Poor sleep hygiene Other specific disorder of sleep of nonorganic origin Family history of cerebral aneurysm Family history of other cardiovascular diseases Insomnia, psychophysiological Insomnia, psychophysiological Migraine with aura, intractable, with status migrainosus (CMS/HCC) documented in [facility]* Diagnosis Migraine with aura, intractable, with status migrainosus (CMS/HCC)- Primary Family history of cerebral aneurysm Family history of other cardiovascular diseases Migraine with aura, intractable, with status migrainosus (CMS/HCC)- Primary Brain tumor (CMS/HCC) Neoplasm of unspecified nature of brain Family history of cerebral aneurysm Family history of other cardiovascular diseases Migraine with aura, intractable, with status migrainosus (CMS/HCC)- Primary Migraine with aura, intractable, with status migrainosus (CMS/HCC)- Primary Insomnia, psychophysiological RLS (restless legs syndrome) Restless legs syndrome (RLS) Family history of cerebral aneurysm Family history of other cardiovascular diseases RICHA (obstructive sleep apnea) Obstructive sleep apnea (adult) (pediatric) Poor sleep hygiene Other specific disorder of sleep of nonorganic origin Encounter to establish care- Primary Wellness examination Primary hypertension (CMS/HCC) Unspecified essential hypertension Hypothyroidism, unspecified type (CMS/HCC) Anxiety Anxiety state, unspecified Major depressive disorder, recurrent episode, moderate (CMS/HCC) Major depressive disorder, recurrent episode, moderate Alcohol abuse Nondependent alcohol abuse, unspecified drinking behavior RICHA (obstructive sleep apnea) Obstructive sleep apnea (adult) (pediatric) Encounter for screening mammogram for malignant neoplasm of breast Cervical spondylosis without myelopathy Acute cystitis without hematuria- Primary Primary hypertension (CMS/HCC) Unspecified essential hypertension Dyslipidemia (CMS/HCC) Other and unspecified hyperlipidemia RICHA (obstructive sleep apnea) Obstructive sleep apnea (adult) (pediatric) High cholesterol (CMS/HCC) Pure hypercholesterolemia Migraine with aura, intractable, with status migrainosus (CMS/HCC)- Primary Insomnia, psychophysiological Poor sleep hygiene Other specific disorder of sleep of nonorganic origin RICHA (obstructive sleep apnea) Obstructive sleep apnea (adult) (pediatric) Family history of cerebral aneurysm Family history of other cardiovascular diseases RLS (restless legs syndrome) Restless legs syndrome (RLS) Degenerative disc disease, cervical Major depressive disorder, recurrent episode, moderate (CMS/HCC)- Primary Major depressive disorder, recurrent episode, moderate Cervical spondylosis without myelopathy Dyslipidemia (CMS/HCC) Other and unspecified hyperlipidemia Primary hypertension (CMS/HCC) Unspecified essential hypertension RICHA (obstructive sleep apnea)- Primary Obstructive sleep apnea (adult) (pediatric) Migraine with aura, intractable, with status migrainosus (CMS/HCC) RLS (restless legs syndrome) Restless legs syndrome (RLS) Poor sleep hygiene Other specific disorder of sleep of nonorganic origin Family history of cerebral aneurysm Family history of other cardiovascular diseases Insomnia, psychophysiological Acute pain of right shoulder- Primary Neck pain on right side Arthritis of right shoulder region [facility] Diagnosis 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 cervical region [facility] Diagnosis Migraine with aura, intractable, with status migrainosus (CMS/HCC)- Primary Family history of cerebral aneurysm Family history of other cardiovascular diseases Migraine with aura, intractable, with status migrainosus (CMS/HCC)- Primary Brain tumor (CMS/HCC) Neoplasm of unspecified nature of brain Family history of cerebral aneurysm Family history of other cardiovascular diseases Migraine with aura, intractable, with status migrainosus (CMS/HCC)- Primary Migraine with aura, intractable, with status migrainosus (CMS/HCC)- Primary Insomnia, psychophysiological RLS (restless legs syndrome) Restless legs syndrome (RLS) Family history of cerebral aneurysm Family history of other cardiovascular diseases RICHA (obstructive sleep apnea) Obstructive sleep apnea (adult) (pediatric) Poor sleep hygiene Other specific disorder of sleep of nonorganic origin Encounter to establish care- Primary Wellness examination Primary hypertension (CMS/HCC) Unspecified essential hypertension Hypothyroidism, unspecified type (CMS/HCC) Anxiety Anxiety state, unspecified Major depressive disorder, recurrent episode, moderate (CMS/HCC) Major depressive disorder, recurrent episode, moderate Alcohol abuse Nondependent alcohol abuse, unspecified drinking behavior RICHA (obstructive sleep apnea) Obstructive sleep apnea (adult) (pediatric) Encounter for screening mammogram for malignant neoplasm of breast Cervical spondylosis without myelopathy Acute cystitis without hematuria- Primary Primary hypertension (CMS/HCC) Unspecified essential hypertension Dyslipidemia (CMS/HCC) Other and unspecified hyperlipidemia RICHA (obstructive sleep apnea) Obstructive sleep apnea (adult) (pediatric) High cholesterol (CMS/HCC) Pure hypercholesterolemia Migraine with aura, intractable, with status migrainosus (CMS/HCC)- Primary Insomnia, psychophysiological Poor sleep hygiene Other specific disorder of sleep of nonorganic origin RICHA (obstructive sleep apnea) Obstructive sleep apnea (adult) (pediatric) Family history of cerebral aneurysm Family history of other cardiovascular diseases RLS (restless legs syndrome) Restless legs syndrome (RLS) Degenerative disc disease, cervical Major depressive disorder, recurrent episode, moderate (CMS/HCC)- Primary Major depressive disorder, recurrent episode, moderate Cervical spondylosis without myelopathy Dyslipidemia (CMS/HCC) Other and unspecified hyperlipidemia Primary hypertension (CMS/HCC) Unspecified essential hypertension RICHA (obstructive sleep apnea)- Primary Obstructive sleep apnea (adult) (pediatric) Migraine with aura, intractable, with status migrainosus (CMS/HCC) RLS (restless legs syndrome) Restless legs syndrome (RLS) Poor sleep hygiene Other specific disorder of sleep of nonorganic origin Family history of cerebral aneurysm Family history of other cardiovascular diseases Insomnia, psychophysiological Gastroesophageal reflux disease, unspecified whether esophagitis present- Primary Unspecified convulsions (CMS/HCC) RICHA (obstructive sleep apnea) Obstructive sleep apnea (adult) (pediatric) Insomnia, psychophysiological Mild intermittent asthma without complication (CMS/HCC) Primary hypertension (CMS/HCC) Unspecified essential hypertension Hypothyroidism, unspecified type (CMS/HCC) Anxiety Anxiety state, unspecified Mild episode of recurrent major depressive disorder (HCC) (CMS/HCC) Major depressive disorder, recurrent episode, moderate (CMS/HCC) Major depressive disorder, recurrent episode, moderate Mixed hyperlipidemia (CMS/HCC) Mixed hyperlipidemia Anemia due to other cause, not classified Cervical spondylosis without myelopathy Wellness examination Intervertebral disc stenosis of neural canal of cervical region Chronic rhinitis [facility] Diagnosis Migraine with aura, intractable, with status migrainosus (CMS/HCC)- Primary Family history of cerebral aneurysm Family history of other cardiovascular diseases Migraine with aura, intractable, with status migrainosus (CMS/HCC)- Primary Brain tumor (CMS/HCC) Neoplasm of unspecified nature of brain Family history of cerebral aneurysm Family history of other cardiovascular diseases Migraine with aura, intractable, with status migrainosus (CMS/HCC)- Primary Migraine with aura, intractable, with status migrainosus (CMS/HCC)- Primary Insomnia, psychophysiological RLS (restless legs syndrome) Restless legs syndrome (RLS) Family history of cerebral aneurysm Family history of other cardiovascular diseases RICHA (obstructive sleep apnea) Obstructive sleep apnea (adult) (pediatric) Poor sleep hygiene Other specific disorder of sleep of nonorganic origin Encounter to establish care- Primary Wellness examination Primary hypertension (CMS/HCC) Unspecified essential hypertension Hypothyroidism, unspecified type (CMS/HCC) Anxiety Anxiety state, unspecified Major depressive disorder, recurrent episode, moderate (CMS/HCC) Major depressive disorder, recurrent episode, moderate Alcohol abuse Nondependent alcohol abuse, unspecified drinking behavior RICHA (obstructive sleep apnea) Obstructive sleep apnea (adult) (pediatric) Encounter for screening mammogram for malignant neoplasm of breast Cervical spondylosis without myelopathy Acute cystitis without hematuria- Primary Primary hypertension (CMS/HCC) Unspecified essential hypertension Dyslipidemia (CMS/HCC) Other and unspecified hyperlipidemia RICHA (obstructive sleep apnea) Obstructive sleep apnea (adult) (pediatric) High cholesterol (CMS/HCC) Pure hypercholesterolemia Migraine with aura, intractable, with status migrainosus (CMS/HCC)- Primary Insomnia, psychophysiological Poor sleep hygiene Other specific disorder of sleep of nonorganic origin RICHA (obstructive sleep apnea) Obstructive sleep apnea (adult) (pediatric) Family history of cerebral aneurysm Family history of other cardiovascular diseases RLS (restless legs syndrome) Restless legs syndrome (RLS) Degenerative disc disease, cervical Major depressive disorder, recurrent episode, moderate (CMS/HCC)- Primary Major depressive disorder, recurrent episode, moderate Cervical spondylosis without myelopathy Dyslipidemia (CMS/HCC) Other and unspecified hyperlipidemia Primary hypertension (CMS/HCC) Unspecified essential hypertension RICHA (obstructive sleep apnea)- Primary Obstructive sleep apnea (adult) (pediatric) Migraine with aura, intractable, with status migrainosus (CMS/HCC) RLS (restless legs syndrome) Restless legs syndrome (RLS) Poor sleep hygiene Other specific disorder of sleep of nonorganic origin Family history of cerebral aneurysm Family history of other cardiovascular diseases Insomnia, psychophysiological Gastroesophageal reflux disease, unspecified whether esophagitis present- Primary Unspecified convulsions (CMS/HCC) RICHA (obstructive sleep apnea) Obstructive sleep apnea (adult) (pediatric) Insomnia, psychophysiological Mild intermittent asthma without complication (CMS/HCC) Primary hypertension (CMS/HCC) Unspecified essential hypertension Hypothyroidism, unspecified type (CMS/HCC) Anxiety Anxiety state, unspecified Mild episode of recurrent major depressive disorder (HCC) (CMS/HCC) Major depressive disorder, recurrent episode, moderate (CMS/HCC) Major depressive disorder, recurrent episode, moderate Mixed hyperlipidemia (CMS/HCC) Mixed hyperlipidemia Anemia due to other cause, not classified Cervical spondylosis without myelopathy Wellness examination Intervertebral disc stenosis of neural canal of cervical region Chronic rhinitis RICHA (obstructive sleep apnea)- Primary Obstructive sleep apnea (adult) (pediatric) Migraine with aura, intractable, with status migrainosus (CMS/HCC) RLS (restless legs syndrome) Restless legs syndrome (RLS) Poor sleep hygiene Other specific disorder of sleep of nonorganic origin Family history of cerebral aneurysm Family history of other cardiovascular diseases Insomnia, psychophysiological Cervical spondylosis without myelopathy [facility]* Diagnosis Migraine with aura, intractable, with status migrainosus (CMS/HCC)- Primary Family history of cerebral aneurysm Family history of other cardiovascular diseases Migraine with aura, intractable, with status migrainosus (CMS/HCC)- Primary Brain tumor (CMS/HCC) Neoplasm of unspecified nature of brain Family history of cerebral aneurysm Family history of other cardiovascular diseases Migraine with aura, intractable, with status migrainosus (CMS/HCC)- Primary Migraine with aura, intractable, with status migrainosus (CMS/HCC)- Primary Insomnia, psychophysiological RLS (restless legs syndrome) Restless legs syndrome (RLS) Family history of cerebral aneurysm Family history of other cardiovascular diseases RICHA (obstructive sleep apnea) Obstructive sleep apnea (adult) (pediatric) Poor sleep hygiene Other specific disorder of sleep of nonorganic origin Encounter to establish care- Primary Wellness examination Primary hypertension (CMS/HCC) Unspecified essential hypertension Hypothyroidism, unspecified type (CMS/HCC) Anxiety Anxiety state, unspecified Major depressive disorder, recurrent episode, moderate (CMS/HCC) Major depressive disorder, recurrent episode, moderate Alcohol abuse Nondependent alcohol abuse, unspecified drinking behavior RICHA (obstructive sleep apnea) Obstructive sleep apnea (adult) (pediatric) Encounter for screening mammogram for malignant neoplasm of breast Cervical spondylosis without myelopathy Acute cystitis without hematuria- Primary Primary hypertension (CMS/HCC) Unspecified essential hypertension Dyslipidemia (CMS/HCC) Other and unspecified hyperlipidemia RICHA (obstructive sleep apnea) Obstructive sleep apnea (adult) (pediatric) High cholesterol (CMS/HCC) Pure hypercholesterolemia Migraine with aura, intractable, with status migrainosus (CMS/HCC)- Primary Insomnia, psychophysiological Poor sleep hygiene Other specific disorder of sleep of nonorganic origin RICHA (obstructive sleep apnea) Obstructive sleep apnea (adult) (pediatric) Family history of cerebral aneurysm Family history of other cardiovascular diseases RLS (restless legs syndrome) Restless legs syndrome (RLS) Degenerative disc disease, cervical Major depressive disorder, recurrent episode, moderate (CMS/HCC)- Primary Major depressive disorder, recurrent episode, moderate Cervical spondylosis without myelopathy Dyslipidemia (CMS/HCC) Other and unspecified hyperlipidemia Primary hypertension (CMS/HCC) Unspecified essential hypertension RICHA (obstructive sleep apnea)- Primary Obstructive sleep apnea (adult) (pediatric) Migraine with aura, intractable, with status migrainosus (CMS/HCC) RLS (restless legs syndrome) Restless legs syndrome (RLS) Poor sleep hygiene Other specific disorder of sleep of nonorganic origin Family history of cerebral aneurysm Family history of other cardiovascular diseases Insomnia, psychophysiological Gastroesophageal reflux disease, unspecified whether esophagitis present- Primary Unspecified convulsions (CMS/HCC) RICHA (obstructive sleep apnea) Obstructive sleep apnea (adult) (pediatric) Insomnia, psychophysiological Mild intermittent asthma without complication (CMS/HCC) Primary hypertension (CMS/HCC) Unspecified essential hypertension Hypothyroidism, unspecified type (CMS/HCC) Anxiety Anxiety state, unspecified Mild episode of recurrent major depressive disorder (HCC) (CMS/HCC) Major depressive disorder, recurrent episode, moderate (CMS/HCC) Major depressive disorder, recurrent episode, moderate Mixed hyperlipidemia (CMS/HCC) Mixed hyperlipidemia Anemia due to other cause, not classified Cervical spondylosis without myelopathy Wellness examination Intervertebral disc stenosis of neural canal of cervical region Chronic rhinitis RICHA (obstructive sleep apnea)- Primary Obstructive sleep apnea (adult) (pediatric) Migraine with aura, intractable, with status migrainosus (CMS/HCC) RLS (restless legs syndrome) Restless legs syndrome (RLS) Poor sleep hygiene Other specific disorder of sleep of nonorganic origin Family history of cerebral aneurysm Family history of other cardiovascular diseases Insomnia, psychophysiological Cervical spondylosis without myelopathy Acute non-recurrent pansinusitis- Primary Chronic rhinitis documented in this encounter [facility]* Diagnosis Cervical spondylosis without myelopathy- Primary [facility] Diagnosis Migraine with aura, intractable, with status migrainosus (CMS/HCC)- Primary Family history of cerebral aneurysm Family history of other cardiovascular diseases Migraine with aura, intractable, with status migrainosus (CMS/HCC)- Primary Brain tumor (CMS/HCC) Neoplasm of unspecified nature of brain Family history of cerebral aneurysm Family history of other cardiovascular diseases Migraine with aura, intractable, with status migrainosus (CMS/HCC)- Primary Migraine with aura, intractable, with status migrainosus (CMS/HCC)- Primary Insomnia, psychophysiological RLS (restless legs syndrome) Restless legs syndrome (RLS) Family history of cerebral aneurysm Family history of other cardiovascular diseases RICHA (obstructive sleep apnea) Obstructive sleep apnea (adult) (pediatric) Poor sleep hygiene Other specific disorder of sleep of nonorganic origin Encounter to establish care- Primary Wellness examination Primary hypertension (CMS/HCC) Unspecified essential hypertension Hypothyroidism, unspecified type (CMS/HCC) Anxiety Anxiety state, unspecified Major depressive disorder, recurrent episode, moderate (CMS/HCC) Major depressive disorder, recurrent episode, moderate Alcohol abuse Nondependent alcohol abuse, unspecified drinking behavior RICHA (obstructive sleep apnea) Obstructive sleep apnea (adult) (pediatric) Encounter for screening mammogram for malignant neoplasm of breast Cervical spondylosis without myelopathy Acute cystitis without hematuria- Primary Primary hypertension (CMS/HCC) Unspecified essential hypertension Dyslipidemia (CMS/HCC) Other and unspecified hyperlipidemia RICHA (obstructive sleep apnea) Obstructive sleep apnea (adult) (pediatric) High cholesterol (CMS/HCC) Pure hypercholesterolemia Migraine with aura, intractable, with status migrainosus (CMS/HCC)- Primary Insomnia, psychophysiological Poor sleep hygiene Other specific disorder of sleep of nonorganic origin RICHA (obstructive sleep apnea) Obstructive sleep apnea (adult) (pediatric) Family history of cerebral aneurysm Family history of other cardiovascular diseases RLS (restless legs syndrome) Restless legs syndrome (RLS) Degenerative disc disease, cervical Major depressive disorder, recurrent episode, moderate (CMS/HCC)- Primary Major depressive disorder, recurrent episode, moderate Cervical spondylosis without myelopathy Dyslipidemia (CMS/HCC) Other and unspecified hyperlipidemia Primary hypertension (CMS/HCC) Unspecified essential hypertension RICHA (obstructive sleep apnea)- Primary Obstructive sleep apnea (adult) (pediatric) Migraine with aura, intractable, with status migrainosus (CMS/HCC) RLS (restless legs syndrome) Restless legs syndrome (RLS) Poor sleep hygiene Other specific disorder of sleep of nonorganic origin Family history of cerebral aneurysm Family history of other cardiovascular diseases Insomnia, psychophysiological Gastroesophageal reflux disease, unspecified whether esophagitis present- Primary Unspecified convulsions (CMS/HCC) RICHA (obstructive sleep apnea) Obstructive sleep apnea (adult) (pediatric) Insomnia, psychophysiological Mild intermittent asthma without complication (CMS/HCC) Primary hypertension (CMS/HCC) Unspecified essential hypertension Hypothyroidism, unspecified type (CMS/HCC) Anxiety Anxiety state, unspecified Mild episode of recurrent major depressive disorder (HCC) (CMS/HCC) Major depressive disorder, recurrent episode, moderate (CMS/HCC) Major depressive disorder, recurrent episode, moderate Mixed hyperlipidemia (CMS/HCC) Mixed hyperlipidemia Anemia due to other cause, not classified Cervical spondylosis without myelopathy Wellness examination Intervertebral disc stenosis of neural canal of cervical region Chronic rhinitis RICHA (obstructive sleep apnea)- Primary Obstructive sleep apnea (adult) (pediatric) Migraine with aura, intractable, with status migrainosus (CMS/HCC) RLS (restless legs syndrome) Restless legs syndrome (RLS) Poor sleep hygiene Other specific disorder of sleep of nonorganic origin Family history of cerebral aneurysm Family history of other cardiovascular diseases Insomnia, psychophysiological Cervical spondylosis without myelopathy Acute non-recurrent pansinusitis- Primary Chronic rhinitis Cervical spondylosis without myelopathy- [facility] Diagnosis Migraine with aura, intractable, with status migrainosus (CMS/HCC)- Primary Family history of cerebral aneurysm Family history of other cardiovascular diseases Migraine with aura, intractable, with status migrainosus (CMS/HCC)- Primary Brain tumor (CMS/HCC) Neoplasm of unspecified nature of brain Family history of cerebral aneurysm Family history of other cardiovascular diseases Migraine with aura, intractable, with status migrainosus (CMS/HCC)- Primary Migraine with aura, intractable, with status migrainosus (CMS/HCC)- Primary Insomnia, psychophysiological RLS (restless legs syndrome) Restless legs syndrome (RLS) Family history of cerebral aneurysm Family history of other cardiovascular diseases RICHA (obstructive sleep apnea) Obstructive sleep apnea (adult) (pediatric) Poor sleep hygiene Other specific disorder of sleep of nonorganic origin Encounter to establish care- Primary Wellness examination Primary hypertension (CMS/HCC) Unspecified essential hypertension Hypothyroidism, unspecified type (CMS/HCC) Anxiety Anxiety state, unspecified Major depressive disorder, recurrent episode, moderate (CMS/HCC) Major depressive disorder, recurrent episode, moderate Alcohol abuse Nondependent alcohol abuse, unspecified drinking behavior RICHA (obstructive sleep apnea) Obstructive sleep apnea (adult) (pediatric) Encounter for screening mammogram for malignant neoplasm of breast Cervical spondylosis without myelopathy Acute cystitis without hematuria- Primary Primary hypertension (CMS/HCC) Unspecified essential hypertension Dyslipidemia (CMS/HCC) Other and unspecified hyperlipidemia RICHA (obstructive sleep apnea) Obstructive sleep apnea (adult) (pediatric) High cholesterol (CMS/HCC) Pure hypercholesterolemia Migraine with aura, intractable, with status migrainosus (CMS/HCC)- Primary Insomnia, psychophysiological Poor sleep hygiene Other specific disorder of sleep of nonorganic origin RICHA (obstructive sleep apnea) Obstructive sleep apnea (adult) (pediatric) Family history of cerebral aneurysm Family history of other cardiovascular diseases RLS (restless legs syndrome) Restless legs syndrome (RLS) Degenerative disc disease, cervical Major depressive disorder, recurrent episode, moderate (CMS/HCC)- Primary Major depressive disorder, recurrent episode, moderate Cervical spondylosis without myelopathy Dyslipidemia (CMS/HCC) Other and unspecified hyperlipidemia Primary hypertension (CMS/HCC) Unspecified essential hypertension RICHA (obstructive sleep apnea)- Primary Obstructive sleep apnea (adult) (pediatric) Migraine with aura, intractable, with status migrainosus (CMS/HCC) RLS (restless legs syndrome) Restless legs syndrome (RLS) Poor sleep hygiene Other specific disorder of sleep of nonorganic origin Family history of cerebral aneurysm Family history of other cardiovascular diseases Insomnia, psychophysiological Gastroesophageal reflux disease, unspecified whether esophagitis present- Primary Unspecified convulsions (CMS/HCC) RICHA (obstructive sleep apnea) Obstructive sleep apnea (adult) (pediatric) Insomnia, psychophysiological Mild intermittent asthma without complication (CMS/HCC) Primary hypertension (CMS/HCC) Unspecified essential hypertension Hypothyroidism, unspecified type (CMS/HCC) Anxiety Anxiety state, unspecified Mild episode of recurrent major depressive disorder (HCC) (CMS/HCC) Major depressive disorder, recurrent episode, moderate (CMS/HCC) Major depressive disorder, recurrent episode, moderate Mixed hyperlipidemia (CMS/HCC) Mixed hyperlipidemia Anemia due to other cause, not classified Cervical spondylosis without myelopathy Wellness examination Intervertebral disc stenosis of neural canal of cervical region Chronic rhinitis RICHA (obstructive sleep apnea)- Primary Obstructive sleep apnea (adult) (pediatric) Migraine with aura, intractable, with status migrainosus (CMS/HCC) RLS (restless legs syndrome) Restless legs syndrome (RLS) Poor sleep hygiene Other specific disorder of sleep of nonorganic origin Family history of cerebral aneurysm Family history of other cardiovascular diseases Insomnia, psychophysiological Cervical spondylosis without myelopathy Acute non-recurrent pansinusitis- Primary Chronic rhinitis Major depressive disorder, recurrent episode, moderate (CMS/HCC) Major depressive disorder, recurrent episode, moderate [facility] Diagnosis Migraine with aura, intractable, with status migrainosus- Primary Family history of cerebral aneurysm Family history of other cardiovascular diseases Migraine with aura, intractable, with status migrainosus- Primary Brain tumor (HCC) Neoplasm of unspecified nature of brain Family history of cerebral aneurysm Family history of other cardiovascular diseases Migraine with aura, intractable, with status migrainosus- Primary Migraine with aura, intractable, with status migrainosus- Primary Insomnia, psychophysiological RLS (restless legs syndrome) Restless legs syndrome (RLS) Family history of cerebral aneurysm Family history of other cardiovascular diseases RICHA (obstructive sleep apnea) Obstructive sleep apnea (adult) (pediatric) Poor sleep hygiene Other specific disorder of sleep of nonorganic origin Encounter to establish care- Primary Wellness examination Primary hypertension Unspecified essential hypertension Hypothyroidism, unspecified type Anxiety Anxiety state, unspecified Major depressive disorder, recurrent episode, moderate (HCC) Major depressive disorder, recurrent episode, moderate Alcohol abuse Nondependent alcohol abuse, unspecified drinking behavior RICHA (obstructive sleep apnea) Obstructive sleep apnea (adult) (pediatric) Encounter for screening mammogram for malignant neoplasm of breast Cervical spondylosis without myelopathy Acute cystitis without hematuria- Primary Primary hypertension Unspecified essential hypertension Dyslipidemia Other and unspecified hyperlipidemia RICHA (obstructive sleep apnea) Obstructive sleep apnea (adult) (pediatric) High cholesterol Pure hypercholesterolemia Migraine with aura, intractable, with status migrainosus- Primary Insomnia, psychophysiological Poor sleep hygiene Other specific disorder of sleep of nonorganic origin RICHA (obstructive sleep apnea) Obstructive sleep apnea (adult) (pediatric) Family history of cerebral aneurysm Family history of other cardiovascular diseases RLS (restless legs syndrome) Restless legs syndrome (RLS) Degenerative disc disease, cervical Major depressive disorder, recurrent episode, moderate (HCC)- Primary Major depressive disorder, recurrent episode, moderate Cervical spondylosis without myelopathy Dyslipidemia Other and unspecified hyperlipidemia Primary hypertension Unspecified essential hypertension RICHA (obstructive sleep apnea)- Primary Obstructive sleep apnea (adult) (pediatric) Migraine with aura, intractable, with status migrainosus RLS (restless legs syndrome) Restless legs syndrome (RLS) Poor sleep hygiene Other specific disorder of sleep of nonorganic origin Family history of cerebral aneurysm Family history of other cardiovascular diseases Insomnia, psychophysiological Gastroesophageal reflux disease, unspecified whether esophagitis present- Primary Unspecified convulsions (HCC) RICHA (obstructive sleep apnea) Obstructive sleep apnea (adult) (pediatric) Insomnia, psychophysiological Mild intermittent asthma without complication (HCC) Primary hypertension Unspecified essential hypertension Hypothyroidism, unspecified type Anxiety Anxiety state, unspecified Mild episode of recurrent major depressive disorder Major depressive disorder, recurrent episode, moderate (HCC) Major depressive disorder, recurrent episode, moderate Mixed hyperlipidemia Mixed hyperlipidemia Anemia due to other cause, not classified Cervical spondylosis without myelopathy Wellness examination Intervertebral disc stenosis of neural canal of cervical region Chronic rhinitis RICHA (obstructive sleep apnea)- Primary Obstructive sleep apnea (adult) (pediatric) Migraine with aura, intractable, with status migrainosus RLS (restless legs syndrome) Restless legs syndrome (RLS) Poor sleep hygiene Other specific disorder of sleep of nonorganic origin Family history of cerebral aneurysm Family history of other cardiovascular diseases Insomnia, psychophysiological Cervical spondylosis without myelopathy Acute non-recurrent pansinusitis- Primary Chronic rhinitis Cervical spondylosis without myelopathy documented [facility]* Diagnosis Migraine with aura, intractable, with status migrainosus- Primary Family history of cerebral aneurysm Family history of other cardiovascular diseases Migraine with aura, intractable, with status migrainosus- Primary Brain tumor (HCC) Neoplasm of unspecified nature of brain Family history of cerebral aneurysm Family history of other cardiovascular diseases Migraine with aura, intractable, with status migrainosus- Primary Migraine with aura, intractable, with status migrainosus- Primary Insomnia, psychophysiological RLS (restless legs syndrome) Restless legs syndrome (RLS) Family history of cerebral aneurysm Family history of other cardiovascular diseases RICHA (obstructive sleep apnea) Obstructive sleep apnea (adult) (pediatric) Poor sleep hygiene Other specific disorder of sleep of nonorganic origin Encounter to establish care- Primary Wellness examination Primary hypertension Unspecified essential hypertension Hypothyroidism, unspecified type Anxiety Anxiety state, unspecified Major depressive disorder, recurrent episode, moderate (HCC) Major depressive disorder, recurrent episode, moderate Alcohol abuse Nondependent alcohol abuse, unspecified drinking behavior RICHA (obstructive sleep apnea) Obstructive sleep apnea (adult) (pediatric) Encounter for screening mammogram for malignant neoplasm of breast Cervical spondylosis without myelopathy Acute cystitis without hematuria- Primary Primary hypertension Unspecified essential hypertension Dyslipidemia Other and unspecified hyperlipidemia RICHA (obstructive sleep apnea) Obstructive sleep apnea (adult) (pediatric) High cholesterol Pure hypercholesterolemia Migraine with aura, intractable, with status migrainosus- Primary Insomnia, psychophysiological Poor sleep hygiene Other specific disorder of sleep of nonorganic origin RICHA (obstructive sleep apnea) Obstructive sleep apnea (adult) (pediatric) Family history of cerebral aneurysm Family history of other cardiovascular diseases RLS (restless legs syndrome) Restless legs syndrome (RLS) Degenerative disc disease, cervical Major depressive disorder, recurrent episode, moderate (HCC)- Primary Major depressive disorder, recurrent episode, moderate Cervical spondylosis without myelopathy Dyslipidemia Other and unspecified hyperlipidemia Primary hypertension Unspecified essential hypertension RICHA (obstructive sleep apnea)- Primary Obstructive sleep apnea (adult) (pediatric) Migraine with aura, intractable, with status migrainosus RLS (restless legs syndrome) Restless legs syndrome (RLS) Poor sleep hygiene Other specific disorder of sleep of nonorganic origin Family history of cerebral aneurysm Family history of other cardiovascular diseases Insomnia, psychophysiological Gastroesophageal reflux disease, unspecified whether esophagitis present- Primary Unspecified convulsions (HCC) RICHA (obstructive sleep apnea) Obstructive sleep apnea (adult) (pediatric) Insomnia, psychophysiological Mild intermittent asthma without complication (HCC) Primary hypertension Unspecified essential hypertension Hypothyroidism, unspecified type Anxiety Anxiety state, unspecified Mild episode of recurrent major depressive disorder Major depressive disorder, recurrent episode, moderate (HCC) Major depressive disorder, recurrent episode, moderate Mixed hyperlipidemia Mixed hyperlipidemia Anemia due to other cause, not classified Cervical spondylosis without myelopathy Wellness examination Intervertebral disc stenosis of neural canal of cervical region Chronic rhinitis RICHA (obstructive sleep apnea)- Primary Obstructive sleep apnea (adult) (pediatric) Migraine with aura, intractable, with status migrainosus RLS (restless legs syndrome) Restless legs syndrome (RLS) Poor sleep hygiene Other specific disorder of sleep of nonorganic origin Family history of cerebral aneurysm Family history of other cardiovascular diseases Insomnia, psychophysiological Cervical spondylosis without myelopathy Acute non-recurrent pansinusitis- Primary Chronic rhinitis Chronic rhinitis documented [facility]* Diagnosis Migraine with aura, intractable, with status migrainosus- Primary Family history of cerebral aneurysm Family history of other cardiovascular diseases Migraine with aura, intractable, with status migrainosus- Primary Brain tumor (HCC) Neoplasm of unspecified nature of brain Family history of cerebral aneurysm Family history of other cardiovascular diseases Migraine with aura, intractable, with status migrainosus- Primary Migraine with aura, intractable, with status migrainosus- Primary Insomnia, psychophysiological RLS (restless legs syndrome) Restless legs syndrome (RLS) Family history of cerebral aneurysm Family history of other cardiovascular diseases RICHA (obstructive sleep apnea) Obstructive sleep apnea (adult) (pediatric) Poor sleep hygiene Other specific disorder of sleep of nonorganic origin Encounter to establish care- Primary Wellness examination Primary hypertension Unspecified essential hypertension Hypothyroidism, unspecified type Anxiety Anxiety state, unspecified Major depressive disorder, recurrent episode, moderate (HCC) Major depressive disorder, recurrent episode, moderate Alcohol abuse Nondependent alcohol abuse, unspecified drinking behavior RICHA (obstructive sleep apnea) Obstructive sleep apnea (adult) (pediatric) Encounter for screening mammogram for malignant neoplasm of breast Cervical spondylosis without myelopathy Acute cystitis without hematuria- Primary Primary hypertension Unspecified essential hypertension Dyslipidemia Other and unspecified hyperlipidemia RICHA (obstructive sleep apnea) Obstructive sleep apnea (adult) (pediatric) High cholesterol Pure hypercholesterolemia Migraine with aura, intractable, with status migrainosus- Primary Insomnia, psychophysiological Poor sleep hygiene Other specific disorder of sleep of nonorganic origin RICHA (obstructive sleep apnea) Obstructive sleep apnea (adult) (pediatric) Family history of cerebral aneurysm Family history of other cardiovascular diseases RLS (restless legs syndrome) Restless legs syndrome (RLS) Degenerative disc disease, cervical Major depressive disorder, recurrent episode, moderate (HCC)- Primary Major depressive disorder, recurrent episode, moderate Cervical spondylosis without myelopathy Dyslipidemia Other and unspecified hyperlipidemia Primary hypertension Unspecified essential hypertension RICHA (obstructive sleep apnea)- Primary Obstructive sleep apnea (adult) (pediatric) Migraine with aura, intractable, with status migrainosus RLS (restless legs syndrome) Restless legs syndrome (RLS) Poor sleep hygiene Other specific disorder of sleep of nonorganic origin Family history of cerebral aneurysm Family history of other cardiovascular diseases Insomnia, psychophysiological Gastroesophageal reflux disease, unspecified whether esophagitis present- Primary Unspecified convulsions (HCC) RICHA (obstructive sleep apnea) Obstructive sleep apnea (adult) (pediatric) Insomnia, psychophysiological Mild intermittent asthma without complication (HCC) Primary hypertension Unspecified essential hypertension Hypothyroidism, unspecified type Anxiety Anxiety state, unspecified Mild episode of recurrent major depressive disorder Major depressive disorder, recurrent episode, moderate (HCC) Major depressive disorder, recurrent episode, moderate Mixed hyperlipidemia Mixed hyperlipidemia Anemia due to other cause, not classified Cervical spondylosis without myelopathy Wellness examination Intervertebral disc stenosis of neural canal of cervical region Chronic rhinitis RICHA (obstructive sleep apnea)- Primary Obstructive sleep apnea (adult) (pediatric) Migraine with aura, intractable, with status migrainosus RLS (restless legs syndrome) Restless legs syndrome (RLS) Poor sleep hygiene Other specific disorder of sleep of nonorganic origin Family history of cerebral aneurysm Family history of other cardiovascular diseases Insomnia, psychophysiological Cervical spondylosis without myelopathy Acute non-recurrent pansinusitis- Primary Chronic rhinitis Insomnia, psychophysiological documented [facility]* Diagnosis Migraine with aura, intractable, with status migrainosus- Primary Family history of cerebral aneurysm Family history of other cardiovascular diseases Migraine with aura, intractable, with status migrainosus- Primary Brain tumor (HCC) Neoplasm of unspecified nature of brain Family history of cerebral aneurysm Family history of other cardiovascular diseases Migraine with aura, intractable, with status migrainosus- Primary Migraine with aura, intractable, with status migrainosus- Primary Insomnia, psychophysiological RLS (restless legs syndrome) Restless legs syndrome (RLS) Family history of cerebral aneurysm Family history of other cardiovascular diseases RICHA (obstructive sleep apnea) Obstructive sleep apnea (adult) (pediatric) Poor sleep hygiene Other specific disorder of sleep of nonorganic origin Encounter to establish care- Primary Wellness examination Primary hypertension Unspecified essential hypertension Hypothyroidism, unspecified type Anxiety Anxiety state, unspecified Major depressive disorder, recurrent episode, moderate (HCC) Major depressive disorder, recurrent episode, moderate Alcohol abuse Nondependent alcohol abuse, unspecified drinking behavior RICHA (obstructive sleep apnea) Obstructive sleep apnea (adult) (pediatric) Encounter for screening mammogram for malignant neoplasm of breast Cervical spondylosis without myelopathy Acute cystitis without hematuria- Primary Primary hypertension Unspecified essential hypertension Dyslipidemia Other and unspecified hyperlipidemia RICHA (obstructive sleep apnea) Obstructive sleep apnea (adult) (pediatric) High cholesterol Pure hypercholesterolemia Migraine with aura, intractable, with status migrainosus- Primary Insomnia, psychophysiological Poor sleep hygiene Other specific disorder of sleep of nonorganic origin RICHA (obstructive sleep apnea) Obstructive sleep apnea (adult) (pediatric) Family history of cerebral aneurysm Family history of other cardiovascular diseases RLS (restless legs syndrome) Restless legs syndrome (RLS) Degenerative disc disease, cervical Major depressive disorder, recurrent episode, moderate (HCC)- Primary Major depressive disorder, recurrent episode, moderate Cervical spondylosis without myelopathy Dyslipidemia Other and unspecified hyperlipidemia Primary hypertension Unspecified essential hypertension RICHA (obstructive sleep apnea)- Primary Obstructive sleep apnea (adult) (pediatric) Migraine with aura, intractable, with status migrainosus RLS (restless legs syndrome) Restless legs syndrome (RLS) Poor sleep hygiene Other specific disorder of sleep of nonorganic origin Family history of cerebral aneurysm Family history of other cardiovascular diseases Insomnia, psychophysiological Gastroesophageal reflux disease, unspecified whether esophagitis present- Primary Unspecified convulsions (HCC) RICHA (obstructive sleep apnea) Obstructive sleep apnea (adult) (pediatric) Insomnia, psychophysiological Mild intermittent asthma without complication (HCC) Primary hypertension Unspecified essential hypertension Hypothyroidism, unspecified type Anxiety Anxiety state, unspecified Mild episode of recurrent major depressive disorder Major depressive disorder, recurrent episode, moderate (HCC) Major depressive disorder, recurrent episode, moderate Mixed hyperlipidemia Mixed hyperlipidemia Anemia due to other cause, not classified Cervical spondylosis without myelopathy Wellness examination Intervertebral disc stenosis of neural canal of cervical region Chronic rhinitis RICHA (obstructive sleep apnea)- Primary Obstructive sleep apnea (adult) (pediatric) Migraine with aura, intractable, with status migrainosus RLS (restless legs syndrome) Restless legs syndrome (RLS) Poor sleep hygiene Other specific disorder of sleep of nonorganic origin Family history of cerebral aneurysm Family history of other cardiovascular diseases Insomnia, psychophysiological Cervical spondylosis without myelopathy Acute non-recurrent pansinusitis- Primary Chronic rhinitis Cervical spondylosis without myelopathy documented in this encounter [facility]* Diagnosis Migraine with aura, intractable, with status migrainosus- Primary Family history of cerebral aneurysm Family history of other cardiovascular diseases Migraine with aura, intractable, with status migrainosus- Primary Brain tumor (HCC) Neoplasm of unspecified nature of brain Family history of cerebral aneurysm Family history of other cardiovascular diseases Migraine with aura, intractable, with status migrainosus- Primary Migraine with aura, intractable, with status migrainosus- Primary Insomnia, psychophysiological RLS (restless legs syndrome) Restless legs syndrome (RLS) Family history of cerebral aneurysm Family history of other cardiovascular diseases RICHA (obstructive sleep apnea) Obstructive sleep apnea (adult) (pediatric) Poor sleep hygiene Other specific disorder of sleep of nonorganic origin Encounter to establish care- Primary Wellness examination Primary hypertension Unspecified essential hypertension Hypothyroidism, unspecified type Anxiety Anxiety state, unspecified Major depressive disorder, recurrent episode, moderate (HCC) Major depressive disorder, recurrent episode, moderate Alcohol abuse Nondependent alcohol abuse, unspecified drinking behavior RICHA (obstructive sleep apnea) Obstructive sleep apnea (adult) (pediatric) Encounter for screening mammogram for malignant neoplasm of breast Cervical spondylosis without myelopathy Acute cystitis without hematuria- Primary Primary hypertension Unspecified essential hypertension Dyslipidemia Other and unspecified hyperlipidemia RICHA (obstructive sleep apnea) Obstructive sleep apnea (adult) (pediatric) High cholesterol Pure hypercholesterolemia Migraine with aura, intractable, with status migrainosus- Primary Insomnia, psychophysiological Poor sleep hygiene Other specific disorder of sleep of nonorganic origin RICHA (obstructive sleep apnea) Obstructive sleep apnea (adult) (pediatric) Family history of cerebral aneurysm Family history of other cardiovascular diseases RLS (restless legs syndrome) Restless legs syndrome (RLS) Degenerative disc disease, cervical Major depressive disorder, recurrent episode, moderate (HCC)- Primary Major depressive disorder, recurrent episode, moderate Cervical spondylosis without myelopathy Dyslipidemia Other and unspecified hyperlipidemia Primary hypertension Unspecified essential hypertension RICHA (obstructive sleep apnea)- Primary Obstructive sleep apnea (adult) (pediatric) Migraine with aura, intractable, with status migrainosus RLS (restless legs syndrome) Restless legs syndrome (RLS) Poor sleep hygiene Other specific disorder of sleep of nonorganic origin Family history of cerebral aneurysm Family history of other cardiovascular diseases Insomnia, psychophysiological Gastroesophageal reflux disease, unspecified whether esophagitis present- Primary Unspecified convulsions (HCC) RICHA (obstructive sleep apnea) Obstructive sleep apnea (adult) (pediatric) Insomnia, psychophysiological Mild intermittent asthma without complication (HCC) Primary hypertension Unspecified essential hypertension Hypothyroidism, unspecified type Anxiety Anxiety state, unspecified Mild episode of recurrent major depressive disorder Major depressive disorder, recurrent episode, moderate (HCC) Major depressive disorder, recurrent episode, moderate Mixed hyperlipidemia Mixed hyperlipidemia Anemia due to other cause, not classified Cervical spondylosis without myelopathy Wellness examination Intervertebral disc stenosis of neural canal of cervical region Chronic rhinitis RICHA (obstructive sleep apnea)- Primary Obstructive sleep apnea (adult) (pediatric) Migraine with aura, intractable, with status migrainosus RLS (restless legs syndrome) Restless legs syndrome (RLS) Poor sleep hygiene Other specific disorder of sleep of nonorganic origin Family history of cerebral aneurysm Family history of other cardiovascular diseases Insomnia, psychophysiological Cervical spondylosis without myelopathy Acute non-recurrent pansinusitis- Primary Chronic rhinitis Moderate persistent asthma without complication (HCC)- Primary Hypothyroidism, unspecified type Major depressive disorder, recurrent episode, moderate (HCC) Major depressive disorder, recurrent episode, moderate Wellness examination Chronic rhinitis Mixed hyperlipidemia Mixed hyperlipidemia documented in this [facility]* Diagnosis Migraine with aura, intractable, with status migrainosus- Primary Family history of cerebral aneurysm Family history of other cardiovascular diseases Migraine with aura, intractable, with status migrainosus- Primary Brain tumor (HCC) Neoplasm of unspecified nature of brain Family history of cerebral aneurysm Family history of other cardiovascular diseases Migraine with aura, intractable, with status migrainosus- Primary Migraine with aura, intractable, with status migrainosus- Primary Insomnia, psychophysiological RLS (restless legs syndrome) Restless legs syndrome (RLS) Family history of cerebral aneurysm Family history of other cardiovascular diseases RICHA (obstructive sleep apnea) Obstructive sleep apnea (adult) (pediatric) Poor sleep hygiene Other specific disorder of sleep of nonorganic origin Encounter to establish care- Primary Wellness examination Primary hypertension Unspecified essential hypertension Hypothyroidism, unspecified type Anxiety Anxiety state, unspecified Major depressive disorder, recurrent episode, moderate (HCC) Major depressive disorder, recurrent episode, moderate Alcohol abuse Nondependent alcohol abuse, unspecified drinking behavior RICHA (obstructive sleep apnea) Obstructive sleep apnea (adult) (pediatric) Encounter for screening mammogram for malignant neoplasm of breast Cervical spondylosis without myelopathy Acute cystitis without hematuria- Primary Primary hypertension Unspecified essential hypertension Dyslipidemia Other and unspecified hyperlipidemia RICHA (obstructive sleep apnea) Obstructive sleep apnea (adult) (pediatric) High cholesterol Pure hypercholesterolemia Migraine with aura, intractable, with status migrainosus- Primary Insomnia, psychophysiological Poor sleep hygiene Other specific disorder of sleep of nonorganic origin RICHA (obstructive sleep apnea) Obstructive sleep apnea (adult) (pediatric) Family history of cerebral aneurysm Family history of other cardiovascular diseases RLS (restless legs syndrome) Restless legs syndrome (RLS) Degenerative disc disease, cervical Major depressive disorder, recurrent episode, moderate (HCC)- Primary Major depressive disorder, recurrent episode, moderate Cervical spondylosis without myelopathy Dyslipidemia Other and unspecified hyperlipidemia Primary hypertension Unspecified essential hypertension RICHA (obstructive sleep apnea)- Primary Obstructive sleep apnea (adult) (pediatric) Migraine with aura, intractable, with status migrainosus RLS (restless legs syndrome) Restless legs syndrome (RLS) Poor sleep hygiene Other specific disorder of sleep of nonorganic origin Family history of cerebral aneurysm Family history of other cardiovascular diseases Insomnia, psychophysiological Gastroesophageal reflux disease, unspecified whether esophagitis present- Primary Unspecified convulsions (HCC) RICHA (obstructive sleep apnea) Obstructive sleep apnea (adult) (pediatric) Insomnia, psychophysiological Mild intermittent asthma without complication (HCC) Primary hypertension Unspecified essential hypertension Hypothyroidism, unspecified type Anxiety Anxiety state, unspecified Mild episode of recurrent major depressive disorder Major depressive disorder, recurrent episode, moderate (HCC) Major depressive disorder, recurrent episode, moderate Mixed hyperlipidemia Mixed hyperlipidemia Anemia due to other cause, not classified Cervical spondylosis without myelopathy Wellness examination Intervertebral disc stenosis of neural canal of cervical region Chronic rhinitis RICHA (obstructive sleep apnea)- Primary Obstructive sleep apnea (adult) (pediatric) Migraine with aura, intractable, with status migrainosus RLS (restless legs syndrome) Restless legs syndrome (RLS) Poor sleep hygiene Other specific disorder of sleep of nonorganic origin Family history of cerebral aneurysm Family history of other cardiovascular diseases Insomnia, psychophysiological Cervical spondylosis without myelopathy Acute non-recurrent pansinusitis- Primary Chronic rhinitis Moderate persistent asthma without complication (HCC)- Primary Hypothyroidism, unspecified type Major depressive disorder, recurrent episode, moderate (HCC) Major depressive disorder, recurrent episode, moderate Wellness examination Chronic rhinitis Mixed hyperlipidemia Mixed hyperlipidemia Gastroesophageal reflux disease, unspecified whether esophagitis present documented in [facility]* Diagnosis Migraine with aura, intractable, with status migrainosus- Primary Family history of cerebral aneurysm Family history of other cardiovascular diseases Migraine with aura, intractable, with status migrainosus- Primary Brain tumor (HCC) Neoplasm of unspecified nature of brain Family history of cerebral aneurysm Family history of other cardiovascular diseases Migraine with aura, intractable, with status migrainosus- Primary Migraine with aura, intractable, with status migrainosus- Primary Insomnia, psychophysiological RLS (restless legs syndrome) Restless legs syndrome (RLS) Family history of cerebral aneurysm Family history of other cardiovascular diseases RICHA (obstructive sleep apnea) Obstructive sleep apnea (adult) (pediatric) Poor sleep hygiene Other specific disorder of sleep of nonorganic origin Encounter to establish care- Primary Wellness examination Primary hypertension Unspecified essential hypertension Hypothyroidism, unspecified type Anxiety Anxiety state, unspecified Major depressive disorder, recurrent episode, moderate (HCC) Major depressive disorder, recurrent episode, moderate Alcohol abuse Nondependent alcohol abuse, unspecified drinking behavior RICHA (obstructive sleep apnea) Obstructive sleep apnea (adult) (pediatric) Encounter for screening mammogram for malignant neoplasm of breast Cervical spondylosis without myelopathy Acute cystitis without hematuria- Primary Primary hypertension Unspecified essential hypertension Dyslipidemia Other and unspecified hyperlipidemia RICHA (obstructive sleep apnea) Obstructive sleep apnea (adult) (pediatric) High cholesterol Pure hypercholesterolemia Migraine with aura, intractable, with status migrainosus- Primary Insomnia, psychophysiological Poor sleep hygiene Other specific disorder of sleep of nonorganic origin RICHA (obstructive sleep apnea) Obstructive sleep apnea (adult) (pediatric) Family history of cerebral aneurysm Family history of other cardiovascular diseases RLS (restless legs syndrome) Restless legs syndrome (RLS) Degenerative disc disease, cervical Major depressive disorder, recurrent episode, moderate (HCC)- Primary Major depressive disorder, recurrent episode, moderate Cervical spondylosis without myelopathy Dyslipidemia Other and unspecified hyperlipidemia Primary hypertension Unspecified essential hypertension RICHA (obstructive sleep apnea)- Primary Obstructive sleep apnea (adult) (pediatric) Migraine with aura, intractable, with status migrainosus RLS (restless legs syndrome) Restless legs syndrome (RLS) Poor sleep hygiene Other specific disorder of sleep of nonorganic origin Family history of cerebral aneurysm Family history of other cardiovascular diseases Insomnia, psychophysiological Gastroesophageal reflux disease, unspecified whether esophagitis present- Primary Unspecified convulsions (HCC) RICHA (obstructive sleep apnea) Obstructive sleep apnea (adult) (pediatric) Insomnia, psychophysiological Mild intermittent asthma without complication (HCC) Primary hypertension Unspecified essential hypertension Hypothyroidism, unspecified type Anxiety Anxiety state, unspecified Mild episode of recurrent major depressive disorder Major depressive disorder, recurrent episode, moderate (HCC) Major depressive disorder, recurrent episode, moderate Mixed hyperlipidemia Mixed hyperlipidemia Anemia due to other cause, not classified Cervical spondylosis without myelopathy Wellness examination Intervertebral disc stenosis of neural canal of cervical region Chronic rhinitis RICHA (obstructive sleep apnea)- Primary Obstructive sleep apnea (adult) (pediatric) Migraine with aura, intractable, with status migrainosus RLS (restless legs syndrome) Restless legs syndrome (RLS) Poor sleep hygiene Other specific disorder of sleep of nonorganic origin Family history of cerebral aneurysm Family history of other cardiovascular diseases Insomnia, psychophysiological Cervical spondylosis without myelopathy Acute non-recurrent pansinusitis- Primary Chronic rhinitis Moderate persistent asthma without complication (HCC)- Primary Hypothyroidism, unspecified type Major depressive disorder, recurrent episode, moderate (HCC) Major depressive disorder, recurrent episode, moderate Wellness examination Chronic rhinitis Mixed hyperlipidemia Mixed hyperlipidemia Acute pain of right shoulder- Primary Arthritis of right shoulder documented in this encounter [facility]* Diagnosis Migraine with aura, intractable, with status migrainosus- Primary Family history of cerebral aneurysm Family history of other cardiovascular diseases Migraine with aura, intractable, with status migrainosus- Primary Brain tumor (HCC) Neoplasm of unspecified nature of brain Family history of cerebral aneurysm Family history of other cardiovascular diseases Migraine with aura, intractable, with status migrainosus- Primary Migraine with aura, intractable, with status migrainosus- Primary Insomnia, psychophysiological RLS (restless legs syndrome) Restless legs syndrome (RLS) Family history of cerebral aneurysm Family history of other cardiovascular diseases RICHA (obstructive sleep apnea) Obstructive sleep apnea (adult) (pediatric) Poor sleep hygiene Other specific disorder of sleep of nonorganic origin Encounter to establish care- Primary Wellness examination Primary hypertension Unspecified essential hypertension Hypothyroidism, unspecified type Anxiety Anxiety state, unspecified Major depressive disorder, recurrent episode, moderate (HCC) Major depressive disorder, recurrent episode, moderate Alcohol abuse Nondependent alcohol abuse, unspecified drinking behavior RICHA (obstructive sleep apnea) Obstructive sleep apnea (adult) (pediatric) Encounter for screening mammogram for malignant neoplasm of breast Cervical spondylosis without myelopathy Acute cystitis without hematuria- Primary Primary hypertension Unspecified essential hypertension Dyslipidemia Other and unspecified hyperlipidemia RICHA (obstructive sleep apnea) Obstructive sleep apnea (adult) (pediatric) High cholesterol Pure hypercholesterolemia Migraine with aura, intractable, with status migrainosus- Primary Insomnia, psychophysiological Poor sleep hygiene Other specific disorder of sleep of nonorganic origin RICHA (obstructive sleep apnea) Obstructive sleep apnea (adult) (pediatric) Family history of cerebral aneurysm Family history of other cardiovascular diseases RLS (restless legs syndrome) Restless legs syndrome (RLS) Degenerative disc disease, cervical Major depressive disorder, recurrent episode, moderate (HCC)- Primary Major depressive disorder, recurrent episode, moderate Cervical spondylosis without myelopathy Dyslipidemia Other and unspecified hyperlipidemia Primary hypertension Unspecified essential hypertension RICHA (obstructive sleep apnea)- Primary Obstructive sleep apnea (adult) (pediatric) Migraine with aura, intractable, with status migrainosus RLS (restless legs syndrome) Restless legs syndrome (RLS) Poor sleep hygiene Other specific disorder of sleep of nonorganic origin Family history of cerebral aneurysm Family history of other cardiovascular diseases Insomnia, psychophysiological Gastroesophageal reflux disease, unspecified whether esophagitis present- Primary Unspecified convulsions (HCC) RICHA (obstructive sleep apnea) Obstructive sleep apnea (adult) (pediatric) Insomnia, psychophysiological Mild intermittent asthma without complication (HCC) Primary hypertension Unspecified essential hypertension Hypothyroidism, unspecified type Anxiety Anxiety state, unspecified Mild episode of recurrent major depressive disorder Major depressive disorder, recurrent episode, moderate (HCC) Major depressive disorder, recurrent episode, moderate Mixed hyperlipidemia Mixed hyperlipidemia Anemia due to other cause, not classified Cervical spondylosis without myelopathy Wellness examination Intervertebral disc stenosis of neural canal of cervical region Chronic rhinitis RICHA (obstructive sleep apnea)- Primary Obstructive sleep apnea (adult) (pediatric) Migraine with aura, intractable, with status migrainosus RLS (restless legs syndrome) Restless legs syndrome (RLS) Poor sleep hygiene Other specific disorder of sleep of nonorganic origin Family history of cerebral aneurysm Family history of other cardiovascular diseases Insomnia, psychophysiological Cervical spondylosis without myelopathy Acute non-recurrent pansinusitis- Primary Chronic rhinitis Moderate persistent asthma without complication (HCC)- Primary Hypothyroidism, unspecified type Major depressive disorder, recurrent episode, moderate (HCC) Major depressive disorder, recurrent episode, moderate Wellness examination Chronic rhinitis Mixed hyperlipidemia Mixed hyperlipidemia Trigger point of neck- Primary RICHA (obstructive sleep apnea) Obstructive sleep apnea (adult) (pediatric) Migraine with aura, intractable, with status migrainosus Family history of cerebral aneurysm Family history of other cardiovascular diseases Insomnia, psychophysiological Cervical paraspinal muscle spasm Spasm of muscle RLS (restless legs syndrome) Restless legs syndrome (RLS) Intractable migraine with status migrainosus, unspecified migraine type documented in this encounter [facility]* Diagnosis Migraine with aura, intractable, with status migrainosus- Primary Family history of cerebral aneurysm Family history of other cardiovascular diseases Migraine with aura, intractable, with status migrainosus- Primary Brain tumor (HCC) Neoplasm of unspecified nature of brain Family history of cerebral aneurysm Family history of other cardiovascular diseases Migraine with aura, intractable, with status migrainosus- Primary Migraine with aura, intractable, with status migrainosus- Primary Insomnia, psychophysiological RLS (restless legs syndrome) Restless legs syndrome (RLS) Family history of cerebral aneurysm Family history of other cardiovascular diseases RICHA (obstructive sleep apnea) Obstructive sleep apnea (adult) (pediatric) Poor sleep hygiene Other specific disorder of sleep of nonorganic origin Encounter to establish care- Primary Wellness examination Primary hypertension Unspecified essential hypertension Hypothyroidism, unspecified type Anxiety Anxiety state, unspecified Major depressive disorder, recurrent episode, moderate (HCC) Major depressive disorder, recurrent episode, moderate Alcohol abuse Nondependent alcohol abuse, unspecified drinking behavior RICHA (obstructive sleep apnea) Obstructive sleep apnea (adult) (pediatric) Encounter for screening mammogram for malignant neoplasm of breast Cervical spondylosis without myelopathy Acute cystitis without hematuria- Primary Primary hypertension Unspecified essential hypertension Dyslipidemia Other and unspecified hyperlipidemia RICHA (obstructive sleep apnea) Obstructive sleep apnea (adult) (pediatric) High cholesterol Pure hypercholesterolemia Migraine with aura, intractable, with status migrainosus- Primary Insomnia, psychophysiological Poor sleep hygiene Other specific disorder of sleep of nonorganic origin RICHA (obstructive sleep apnea) Obstructive sleep apnea (adult) (pediatric) Family history of cerebral aneurysm Family history of other cardiovascular diseases RLS (restless legs syndrome) Restless legs syndrome (RLS) Degenerative disc disease, cervical Major depressive disorder, recurrent episode, moderate (HCC)- Primary Major depressive disorder, recurrent episode, moderate Cervical spondylosis without myelopathy Dyslipidemia Other and unspecified hyperlipidemia Primary hypertension Unspecified essential hypertension RICHA (obstructive sleep apnea)- Primary Obstructive sleep apnea (adult) (pediatric) Migraine with aura, intractable, with status migrainosus RLS (restless legs syndrome) Restless legs syndrome (RLS) Poor sleep hygiene Other specific disorder of sleep of nonorganic origin Family history of cerebral aneurysm Family history of other cardiovascular diseases Insomnia, psychophysiological Gastroesophageal reflux disease, unspecified whether esophagitis present- Primary Unspecified convulsions (HCC) RICHA (obstructive sleep apnea) Obstructive sleep apnea (adult) (pediatric) Insomnia, psychophysiological Mild intermittent asthma without complication (HCC) Primary hypertension Unspecified essential hypertension Hypothyroidism, unspecified type Anxiety Anxiety state, unspecified Mild episode of recurrent major depressive disorder Major depressive disorder, recurrent episode, moderate (HCC) Major depressive disorder, recurrent episode, moderate Mixed hyperlipidemia Mixed hyperlipidemia Anemia due to other cause, not classified Cervical spondylosis without myelopathy Wellness examination Intervertebral disc stenosis of neural canal of cervical region Chronic rhinitis RICHA (obstructive sleep apnea)- Primary Obstructive sleep apnea (adult) (pediatric) Migraine with aura, intractable, with status migrainosus RLS (restless legs syndrome) Restless legs syndrome (RLS) Poor sleep hygiene Other specific disorder of sleep of nonorganic origin Family history of cerebral aneurysm Family history of other cardiovascular diseases Insomnia, psychophysiological Cervical spondylosis without myelopathy Acute non-recurrent pansinusitis- Primary Chronic rhinitis Moderate persistent asthma without complication (HCC)- Primary Hypothyroidism, unspecified type Major depressive disorder, recurrent episode, moderate (HCC) Major depressive disorder, recurrent episode, moderate Wellness examination Chronic rhinitis Mixed hyperlipidemia Mixed hyperlipidemia Trigger point of neck- Primary RICHA (obstructive sleep apnea) Obstructive sleep apnea (adult) (pediatric) Migraine with aura, intractable, with status migrainosus Family history of cerebral aneurysm Family history of other cardiovascular diseases Insomnia, psychophysiological Cervical paraspinal muscle spasm Spasm of muscle RLS (restless legs syndrome) Restless legs syndrome (RLS) Intractable migraine with status migrainosus, unspecified migraine type Acute pain of left shoulder- Primary Arthritis of left shoulder documented in this encounter [facility]* Diagnosis Migraine with aura, intractable, with status migrainosus- Primary Family history of cerebral aneurysm Family history of other cardiovascular diseases Migraine with aura, intractable, with status migrainosus- Primary Brain tumor (HCC) Neoplasm of unspecified nature of brain Family history of cerebral aneurysm Family history of other cardiovascular diseases Migraine with aura, intractable, with status migrainosus- Primary Migraine with aura, intractable, with status migrainosus- Primary Insomnia, psychophysiological RLS (restless legs syndrome) Restless legs syndrome (RLS) Family history of cerebral aneurysm Family history of other cardiovascular diseases RICHA (obstructive sleep apnea) Obstructive sleep apnea (adult) (pediatric) Poor sleep hygiene Other specific disorder of sleep of nonorganic origin Encounter to establish care- Primary Wellness examination Primary hypertension Unspecified essential hypertension Hypothyroidism, unspecified type Anxiety Anxiety state, unspecified Major depressive disorder, recurrent episode, moderate (HCC) Major depressive disorder, recurrent episode, moderate Alcohol abuse Nondependent alcohol abuse, unspecified drinking behavior RICHA (obstructive sleep apnea) Obstructive sleep apnea (adult) (pediatric) Encounter for screening mammogram for malignant neoplasm of breast Cervical spondylosis without myelopathy Acute cystitis without hematuria- Primary Primary hypertension Unspecified essential hypertension Dyslipidemia Other and unspecified hyperlipidemia RICHA (obstructive sleep apnea) Obstructive sleep apnea (adult) (pediatric) High cholesterol Pure hypercholesterolemia Migraine with aura, intractable, with status migrainosus- Primary Insomnia, psychophysiological Poor sleep hygiene Other specific disorder of sleep of nonorganic origin RICHA (obstructive sleep apnea) Obstructive sleep apnea (adult) (pediatric) Family history of cerebral aneurysm Family history of other cardiovascular diseases RLS (restless legs syndrome) Restless legs syndrome (RLS) Degenerative disc disease, cervical Major depressive disorder, recurrent episode, moderate (HCC)- Primary Major depressive disorder, recurrent episode, moderate Cervical spondylosis without myelopathy Dyslipidemia Other and unspecified hyperlipidemia Primary hypertension Unspecified essential hypertension RICHA (obstructive sleep apnea)- Primary Obstructive sleep apnea (adult) (pediatric) Migraine with aura, intractable, with status migrainosus RLS (restless legs syndrome) Restless legs syndrome (RLS) Poor sleep hygiene Other specific disorder of sleep of nonorganic origin Family history of cerebral aneurysm Family history of other cardiovascular diseases Insomnia, psychophysiological Gastroesophageal reflux disease, unspecified whether esophagitis present- Primary Unspecified convulsions (HCC) RICHA (obstructive sleep apnea) Obstructive sleep apnea (adult) (pediatric) Insomnia, psychophysiological Mild intermittent asthma without complication (HCC) Primary hypertension Unspecified essential hypertension Hypothyroidism, unspecified type Anxiety Anxiety state, unspecified Mild episode of recurrent major depressive disorder Major depressive disorder, recurrent episode, moderate (HCC) Major depressive disorder, recurrent episode, moderate Mixed hyperlipidemia Mixed hyperlipidemia Anemia due to other cause, not classified Cervical spondylosis without myelopathy Wellness examination Intervertebral disc stenosis of neural canal of cervical region Chronic rhinitis RICHA (obstructive sleep apnea)- Primary Obstructive sleep apnea (adult) (pediatric) Migraine with aura, intractable, with status migrainosus RLS (restless legs syndrome) Restless legs syndrome (RLS) Poor sleep hygiene Other specific disorder of sleep of nonorganic origin Family history of cerebral aneurysm Family history of other cardiovascular diseases Insomnia, psychophysiological Cervical spondylosis without myelopathy Acute non-recurrent pansinusitis- Primary Chronic rhinitis Moderate persistent asthma without complication (HCC)- Primary Hypothyroidism, unspecified type Major depressive disorder, recurrent episode, moderate (HCC) Major depressive disorder, recurrent episode, moderate Wellness examination Chronic rhinitis Mixed hyperlipidemia Mixed hyperlipidemia Trigger point of neck- Primary RICHA (obstructive sleep apnea) Obstructive sleep apnea (adult) (pediatric) Migraine with aura, intractable, with status migrainosus Family history of cerebral aneurysm Family history of other cardiovascular diseases Insomnia, psychophysiological Cervical paraspinal muscle spasm Spasm of muscle RLS (restless legs syndrome) Restless legs syndrome (RLS) Intractable migraine with status migrainosus, unspecified migraine type Insomnia, psychophysiological Migraine with aura, intractable, with status migrainosus documented in this encounter [facility]* Diagnosis Migraine with aura, intractable, with status migrainosus- Primary Family history of cerebral aneurysm Family history of other cardiovascular diseases Migraine with aura, intractable, with status migrainosus- Primary Brain tumor (HCC) Neoplasm of unspecified nature of brain Family history of cerebral aneurysm Family history of other cardiovascular diseases Migraine with aura, intractable, with status migrainosus- Primary Migraine with aura, intractable, with status migrainosus- Primary Insomnia, psychophysiological RLS (restless legs syndrome) Restless legs syndrome (RLS) Family history of cerebral aneurysm Family history of other cardiovascular diseases RICHA (obstructive sleep apnea) Obstructive sleep apnea (adult) (pediatric) Poor sleep hygiene Other specific disorder of sleep of nonorganic origin Encounter to establish care- Primary Wellness examination Primary hypertension Unspecified essential hypertension Hypothyroidism, unspecified type Anxiety Anxiety state, unspecified Major depressive disorder, recurrent episode, moderate (HCC) Major depressive disorder, recurrent episode, moderate Alcohol abuse Nondependent alcohol abuse, unspecified drinking behavior RICHA (obstructive sleep apnea) Obstructive sleep apnea (adult) (pediatric) Encounter for screening mammogram for malignant neoplasm of breast Cervical spondylosis without myelopathy Acute cystitis without hematuria- Primary Primary hypertension Unspecified essential hypertension Dyslipidemia Other and unspecified hyperlipidemia RICHA (obstructive sleep apnea) Obstructive sleep apnea (adult) (pediatric) High cholesterol Pure hypercholesterolemia Migraine with aura, intractable, with status migrainosus- Primary Insomnia, psychophysiological Poor sleep hygiene Other specific disorder of sleep of nonorganic origin RICHA (obstructive sleep apnea) Obstructive sleep apnea (adult) (pediatric) Family history of cerebral aneurysm Family history of other cardiovascular diseases RLS (restless legs syndrome) Restless legs syndrome (RLS) Degenerative disc disease, cervical Major depressive disorder, recurrent episode, moderate (HCC)- Primary Major depressive disorder, recurrent episode, moderate Cervical spondylosis without myelopathy Dyslipidemia Other and unspecified hyperlipidemia Primary hypertension Unspecified essential hypertension RICHA (obstructive sleep apnea)- Primary Obstructive sleep apnea (adult) (pediatric) Migraine with aura, intractable, with status migrainosus RLS (restless legs syndrome) Restless legs syndrome (RLS) Poor sleep hygiene Other specific disorder of sleep of nonorganic origin Family history of cerebral aneurysm Family history of other cardiovascular diseases Insomnia, psychophysiological Gastroesophageal reflux disease, unspecified whether esophagitis present- Primary Unspecified convulsions (HCC) RICHA (obstructive sleep apnea) Obstructive sleep apnea (adult) (pediatric) Insomnia, psychophysiological Mild intermittent asthma without complication (HCC) Primary hypertension Unspecified essential hypertension Hypothyroidism, unspecified type Anxiety Anxiety state, unspecified Mild episode of recurrent major depressive disorder Major depressive disorder, recurrent episode, moderate (HCC) Major depressive disorder, recurrent episode, moderate Mixed hyperlipidemia Mixed hyperlipidemia Anemia due to other cause, not classified Cervical spondylosis without myelopathy Wellness examination Intervertebral disc stenosis of neural canal of cervical region Chronic rhinitis RICHA (obstructive sleep apnea)- Primary Obstructive sleep apnea (adult) (pediatric) Migraine with aura, intractable, with status migrainosus RLS (restless legs syndrome) Restless legs syndrome (RLS) Poor sleep hygiene Other specific disorder of sleep of nonorganic origin Family history of cerebral aneurysm Family history of other cardiovascular diseases Insomnia, psychophysiological Cervical spondylosis without myelopathy Acute non-recurrent pansinusitis- Primary Chronic rhinitis Moderate persistent asthma without complication (HCC)- Primary Hypothyroidism, unspecified type Major depressive disorder, recurrent episode, moderate (HCC) Major depressive disorder, recurrent episode, moderate Wellness examination Chronic rhinitis Mixed hyperlipidemia Mixed hyperlipidemia Trigger point of neck- Primary RICHA (obstructive sleep apnea) Obstructive sleep apnea (adult) (pediatric) Migraine with aura, intractable, with status migrainosus Family history of cerebral aneurysm Family history of other cardiovascular diseases Insomnia, psychophysiological Cervical paraspinal muscle spasm Spasm of muscle RLS (restless legs syndrome) Restless legs syndrome (RLS) Intractable migraine with status migrainosus, unspecified migraine type Trigger point- Primary documented in this encounter [facility]* Diagnosis Migraine with aura, intractable, with status migrainosus- Primary Family history of cerebral aneurysm Family history of other cardiovascular diseases Migraine with aura, intractable, with status migrainosus- Primary Brain tumor (HCC) Neoplasm of unspecified nature of brain Family history of cerebral aneurysm Family history of other cardiovascular diseases Migraine with aura, intractable, with status migrainosus- Primary Migraine with aura, intractable, with status migrainosus- Primary Insomnia, psychophysiological RLS (restless legs syndrome) Restless legs syndrome (RLS) Family history of cerebral aneurysm Family history of other cardiovascular diseases RICHA (obstructive sleep apnea) Obstructive sleep apnea (adult) (pediatric) Poor sleep hygiene Other specific disorder of sleep of nonorganic origin Encounter to establish care- Primary Wellness examination Primary hypertension Unspecified essential hypertension Hypothyroidism, unspecified type Anxiety Anxiety state, unspecified Major depressive disorder, recurrent episode, moderate (HCC) Major depressive disorder, recurrent episode, moderate Alcohol abuse Nondependent alcohol abuse, unspecified drinking behavior RICHA (obstructive sleep apnea) Obstructive sleep apnea (adult) (pediatric) Encounter for screening mammogram for malignant neoplasm of breast Cervical spondylosis without myelopathy Acute cystitis without hematuria- Primary Primary hypertension Unspecified essential hypertension Dyslipidemia Other and unspecified hyperlipidemia RICHA (obstructive sleep apnea) Obstructive sleep apnea (adult) (pediatric) High cholesterol Pure hypercholesterolemia Migraine with aura, intractable, with status migrainosus- Primary Insomnia, psychophysiological Poor sleep hygiene Other specific disorder of sleep of nonorganic origin RICHA (obstructive sleep apnea) Obstructive sleep apnea (adult) (pediatric) Family history of cerebral aneurysm Family history of other cardiovascular diseases RLS (restless legs syndrome) Restless legs syndrome (RLS) Degenerative disc disease, cervical Major depressive disorder, recurrent episode, moderate (HCC)- Primary Major depressive disorder, recurrent episode, moderate Cervical spondylosis without myelopathy Dyslipidemia Other and unspecified hyperlipidemia Primary hypertension Unspecified essential hypertension RICHA (obstructive sleep apnea)- Primary Obstructive sleep apnea (adult) (pediatric) Migraine with aura, intractable, with status migrainosus RLS (restless legs syndrome) Restless legs syndrome (RLS) Poor sleep hygiene Other specific disorder of sleep of nonorganic origin Family history of cerebral aneurysm Family history of other cardiovascular diseases Insomnia, psychophysiological Gastroesophageal reflux disease, unspecified whether esophagitis present- Primary Unspecified convulsions (HCC) RICHA (obstructive sleep apnea) Obstructive sleep apnea (adult) (pediatric) Insomnia, psychophysiological Mild intermittent asthma without complication (HCC) Primary hypertension Unspecified essential hypertension Hypothyroidism, unspecified type Anxiety Anxiety state, unspecified Mild episode of recurrent major depressive disorder Major depressive disorder, recurrent episode, moderate (HCC) Major depressive disorder, recurrent episode, moderate Mixed hyperlipidemia Anemia due to other cause, not classified Cervical spondylosis without myelopathy Wellness examination Intervertebral disc stenosis of neural canal of cervical region Chronic rhinitis RICHA (obstructive sleep apnea)- Primary Obstructive sleep apnea (adult) (pediatric) Migraine with aura, intractable, with status migrainosus RLS (restless legs syndrome) Restless legs syndrome (RLS) Poor sleep hygiene Other specific disorder of sleep of nonorganic origin Family history of cerebral aneurysm Family history of other cardiovascular diseases Insomnia, psychophysiological Cervical spondylosis without myelopathy Acute non-recurrent pansinusitis- Primary Chronic rhinitis Moderate persistent asthma without complication (HCC)- Primary Hypothyroidism, unspecified type Major depressive disorder, recurrent episode, moderate (HCC) Major depressive disorder, recurrent episode, moderate Wellness examination Chronic rhinitis Mixed hyperlipidemia Trigger point of neck- Primary RICHA (obstructive sleep apnea) Obstructive sleep apnea (adult) (pediatric) Migraine with aura, intractable, with status migrainosus Family history of cerebral aneurysm Family history of other cardiovascular diseases Insomnia, psychophysiological Cervical paraspinal muscle spasm Spasm of muscle RLS (restless legs syndrome) Restless legs syndrome (RLS) Intractable migraine with status migrainosus, unspecified migraine type Insomnia, psychophysiological documented in this encounter [facility] No data available for this section [facility] Discharge instructionsAmbulatory Orders* Referral to Orthopedic Surgery Location: None [facility] Work Phone: InstructionsNot on filedocumented in this encounter [facility]ructionsNot on filedocumented in this encounter [facility]ructionsNot on filedocumented in this encounter [facility] SystemInstructionsNot on filedocumented in this encounter [facility] SystemInstructionsNot on filedocumented in this encounter [facility] SystemProgress note No data available for this section [facility] Reason for referral (narrative)* Consultation (Routine) - Pending ReviewSpecialtyDiagnoses / ProceduresReferred By ContactReferred To ContactBehavioral Health Diagnoses Anxiety Alcohol abuse Procedures [place] OFFICE/OUTPATIENT [facility] 60 MINUTES Daniel Sanchez NP [address] [place] [address] Stephanie Ibanez S, MANAGEMENT LIAISON-S [address] [place] [address] Referral IDStatusReasonStart DateExpiration DateVisits RequestedVisits [id number] Review Specialty Services Required / [facility] HealthcareReason for referral (narrative)No reason for referral information [facility]Mer[facility] Work Phone: Reason for visit Narrative* Injection (Routine) - ClosedSpecialtyDiagnoses / ProceduresReferred By ContactReferred To Contact Neurology Diagnoses Other specified dorsopathies, cervical region Myalgia of auxiliary muscles, head and neck Procedures [place] INJECTION SINGLE/DIVE MASTER TRIGGER POINT 1/2 MUSCLES [place] DEXAMETHASONE SODIUM PHOS 1 CC STERILE SYRINGE&NEEDLE Quinten Figueroa MD [address] [place] [address] Phone: tel: fax: Quinten Figueroa MD [address] [place] [address] Phone: tel: fax: Referral IDStatusReasonStart DateExpiration DateVisits RequestedVisits [id number] Perform Procedure / [facility] Healthcare Summary Purpose Family History Relationship Condition Age at Onset Recorded Date/T samantha father Unknown motherDeceasedUnknown Advance Directives Advance Directive Response Recorded Date/ Time Advance Directives No August 02, 2024 2:33pm Advance Directive Response Recorded Date/ Time Advance Directives No September 11:55am Date ActivatedDate InactivatedComments06/29/2019 3:32 AM06/30/2019 8:36 PMDate ActivatedDate InactivatedComments03/19/2016 2:20 AM03/20/2016 7:39 PMDate Activated Date InactivatedComments03/18/2016 11:34 PM03/19/2016 1:50 AMDate ActivatedDate InactivatedComments06/29/2019 3:32 AM06/30/2019 8:36 PMDate ActivatedDate InactivatedComments03/19/2016 2:20 AM03/20/2016 7:39 PMDate ActivatedDate InactivatedComments03/18/2016 11:34 PM03/19/2016 1:50 AM Advance Directive Response Recorded Date/ Time Advance Directives No September 12:55pm Chief Complaint and Reason for Visit Chief Complaint Poss UTI Reason for Visit UTI (urinary tract i nfection) Chief Complaint Poss UTI Chief Complaint Poss UTI DysuriaReason for VisitUTI (urinary tract infection) Chief Complaint Admit Date Poss UTI August 02, 2024 2 :34pm R30.0 August 02, 2024 3 :00pm cough, congestion (wants covid test) Sep 5:09pm R06.02 - Shortness of breath September 6:00pm Cervical pain and cervical arthritis Gal uary 2024 1:33pm Reason for Visit Admit Date UTI (urinary tract infection) August 022023 2:34pm Viral URI with cough September 13, 2024 5:09pm Neck pain October 26, 2024 1 :33pm Chief Complaint Admit Date [facility] June 8:07am Chief Complaint Admit Date [facility] June 8:07am 2M July 18, 2025 2: 33pm Reason for Visit Admit Date Concussion June 27, 2025 8:07am Headache, chronic migraine without aura, intractable June 27, 2025 8:07am Acute sinusitis July 18, 2025 2: 33pm Essential hypertension July 18, 2025 2:33pm AARON (generalized anxiety disorder) Octob er 2024 2:33pm GERD with stricture without esophagitis July 18, 2025 2:33pm Hypothyroidism July 18, 2025 2: 33pm Mixed hyperlipidemia July 18, 2025 2 :33pm Chief Complaint Admit Date [facility] [...] UTI (urinary tract infection) August 152024 9:30am Reason for Referral SpecialtyDiagnoses / ProceduresReferred By ContactReferred To Contact Diagnoses Cervical spondylosis without myelopathy Procedures Case request operating room: INJECTION BLOCK NERVE MEDIAL BRANCH BILATERAL C3/4, C4/5 MBB Denise Diehl APRN-SHEEP FARM MANAGER [address] [place] [address] Referral IDStatusReasonStdunkirk DateExpiration DateVisits RequestedVisits [id number] Review/[id number] / ProceduresReferred By ContactReferred To ContactRadiology Diagnoses Cervical radiculopathy Procedures MR cervical spine without contrast Denise Diehl APRN-SHEEP FARM MANAGER [address] [place] [address] Referral IDStatusReasonChicago DateExpiration DateVisits RequestedVisits [id number] Review/[id number] / ProceduresReferred By ContactReferred To ContactRehabilitation Diagnoses Chronic neck pain Denise Diehl APRN-SHEEP FARM MANAGER [address] [place] [address] [facility] [address] [place] [address] Referral IDStatusReasonStart DateExpiration DateVisits RequestedVisits [id number] Specialty Services Required Additional Source Comments INFORMATION SOURCE (unrecogn ized section and content) DATE CREATED AUTHOR 05/06/2022 [facility] DATE CREATED AUTHOR AUTHOR'S ORGANIZ ATION 04/05/2024 [facility] DATE CREATED AUTHOR AUTHOR'S ORGANIZ ATION 09/25/2024 [facility] DATE CREATED AUTHOR AUTHOR'S ORGANIZ ATION 06/27/2025 [facility] EPIC DATE CREATED AUTHOR AUTHOR'S ORGANIZ ATION 08/06/2025 [facility] Patient Care team informatio n (unrecognized section and content) Team MemberRelationshipSpecialtyStart DateEnd Date Kp Bello MD [address] [place] [address] PCP - GeneralFamily Medicine06/29/24 Shira Concepcion MD [address] [place] [address] Physician Assistant06/29/24 Mike Burkett MD [address] [place] [address] Referring PhysicianFamily Medicine12/14/23 Daniel Sanchez NP [address] [place] [address] Nurse PractitionerFamily Medicine06/29/24Team MemberRelationshipSpecialtyStart DateEnd Date Kp Bello MD [address] [place] [address] [facility]06/29/24 Shira Concepcion MD [address] [place] [address] Physician Assistant06/29/24 Mike Burkett MD [address] [place] [address] Referring [facility]Jeff[facility]12/14/23 Daniel Sanchez NP [address] [place] [address] Nurse Pract[facility]Jeff[facility]06/29/24Team MemberRelationshipSpecialtyStart DateEnd Date Kp Bello MD [address] [place] [address] PCP - [facility]06/29/24 Shira Concepcion MD [address] [place] [address] Physician Assistant06/29/24 Mike Burkett MD [address] [place], [place] [phone] Referring PhysicianJefferson Hospital12/14/23 Daniel Sanchez NP [address] [place] [address] Nurse Pract[facility]Jeff[facility]06/29/24Team MemberRelationshipSpecialtyStart DateEnd Date Kp Bello MD [address] [place] [address] PCP - [facility] Medicine06/29/24 Shira Concepcion MD [address] [place], [place] [phone] Physician Assistant06/29/24 Mike Burkett MD [address] [place], [place] [phone] Referring PhysicianSymmes Hospital Medicine12/14/23 Daniel Sanchez NP [address] [place] [address] Nurse Pract[facility]Jeff[facility]06/29/24Team MemberRelationshipSpecialtyStart DateEnd Date Kp Bello MD [address] [place] [address] PCP - [facility]Jeff[facility]06/29/24 Shira Concepcion MD [address] [place], [place] [phone] Physician Assistant06/29/24 Mike Burkett MD [address] [place], [place] [phone] Referring [facility]icianJefferson Hospital12/14/23 Daniel Sanchez NP [address] [place] [address] Nurse Pract[facility]erJeff[facility]06/29/24 Team Status: Active Member Role Status Dates NON STAFF Primary Care Provider Active Team Status: Inactive Member Role Status Dates Sonia Miller APRN Attending Provider Active S tart: August 02, 2024 End: August 02, 2024NON STAFFPrimary Care ProviderActiveStart: August 02, 2024 End: August 02, 2024 Team Status: Inactive Member Role Status Dates Sonia Miller APRN Attending Provider Active S tart: August 02, 2024 End: August 02, 2024Team MemberRelationshipSpecialtyStart DateEnd Date Unallocated, Valerie Daugherty MD [address] [place] [address] PCP - [facility]07/31/24 Shira Concepcion MD [address] [place] [address] Physician Assistant06/29/24 Mike Burkett MD [address] [place] [address] Referring [facility]icianSymmes Hospital Medicine12/14/23 Daniel Sanchez NP [address] [place] [address] Nurse PractitionerManning Regional Healthcare Centerly Medicine06/29/24Team MemberRelationshipSpecialtyStart DateEnd Date Unallocated, Valerie Daugherty MD [address] [place] [address] [facility] - [facility] Eatzyyyn01/21/24 Shira Concepcion MD [address] [place] [address] Physician Assistant06/29/24 Mike Burkett MD [address] [place] [address] Referring PhysicianFamily Medicine12/14/23 Daniel Sanchez NP [address] [place] [address] Nurse Pract[facility]Jeff[facility]06/29/24Team MemberRelationshipSpecialtyStart DateEnd Date Unallocated, Valerie Daugherty MD [address] [place] [address] PCP - Generalmi Zyfaqplp25/21/24 Shira Concepcion MD [address] [place] [address] Physician Assistant06/29/24 Mike Burkett MD [address] [place] [address] [place] [address] Referring [facility]icianmiM[facility]12/14/23 Daniel Sanchez NP [address] [place] [address] Nurse Pract[facility]Jeff[facility]06/29/24Te MemberRelationshipSpecialtyStart DateEnd Date Unallocated, Valerie Daugherty MD [address] [place] [address] PCP - Generalmi Igchdqzo12/21/24 Shira Concepcion MD [address] [place] [address] Physician Assistant06/29/24 Mike Burkett MD [address] [place] [address] Referring Physicianmily Medicine12/14/23 Daniel Sanchez NP [address] [place] [address] Nurse Pract[facility]Jeff[facility]06/29/24Team MemberRelationshipSpecialtyStart DateEnd Date Kp Bello MD [address] [place] [address] PCP - [facility] Dsjmtovj94/31/24 Shira Concepcion MD [address] [place] [address] [phone] Physician Assistant06/29/24 Mike Burkett MD [address] [place] [address] [place] [address] Referring PhysicianJefferson Hospital12/14/23 Daniel Sanchez NP [address] [place] [address] Nurse PractitionerJeff[facility]06/29/24Team MemberRelationshipSpecialtyStart DateEnd Kp Bello MD [address] [place] [address] PCP - [facility] Gqsjttce38/31/24 Shira Concepcion MD [address] [place] [address] 8207420 Physician Assistant06/29/24 Mike Burkett MD [address] [place], [place] [address]dago [place], [place] [address] Referring PhysicianFamily Medicine12/14/23 Daniel Sanchez NP [address] [place] [address] Nurse PractitionerJeff[facility]06/29/24Team MemberRelationshipSpecialtyStart DateEnd Date Kp Bello MD [address] [place] [address] PCP - [facility]08/10/24 Shira Concepcion MD [address] [place] [address] Physician Assistant06/29/24 Mike Burkett MD [address] [place] [address] Referring PhysicianJefferson Hospital12/14/23 Daniel Sanchez NP [address] [place] [address] Nurse PractitionerJeff[facility]06/29/24Te MemberRelationshipSpecialtyStart DateEnd Kp Bello MD [address] [place] [address] PCP - [facility]08/10/24 Shira Concepcion MD [address] [place] [address] 3767320 Physician Assistant06/29/24 Mike Burkett MD [address] [place] [address] Referring Physicianmi Medicine12/14/23 Daniel Sanchez, ALFREDO [address] [place] [address] Nurse PractitionerJeff[facility]06/29/24Te MemberRelationshipSpecialtyStart DateEnd Date Kp Bello MD [address] [place] [address] PCP - [facility]08/10/24 Shira Concepcion MD [address] [place] [address] Physician Assistant06/29/24 Mike Burkett MD [address] [place] [address] Referring PhysicianJefferson Hospital12/14/23 Daniel Sanchez, ALFREDO [address] [place] [address] Nurse PractitionerJeff[facility] Hospital06/29/24Te MemberRelationshipSpecialtyStart DateEnd Date Kp Bello MD [address] [place] [address] PCP - [facility]Jeff[facility]08/10/24 Shira Concepcion MD [facility] [place] [address] Physician Assistant06/29/24 Mike Bukrett MD [address] [place] [address] Referring PhysicianJefferson Hospital12/14/23 Daniel Sanchez NP [address] [place] [address] Nurse PractitionerJeff[facility] Hospital06/29/24Te MemberRelationshipSpecialtyStart DateEnd Date Kp Bello MD [address] [place] [address] PCP - [facility]08/10/24 [place] [address] [place] [address] [phone] Physician Assistant06/29/24 Mike Burkett MD [address] [place] [address] Referring PhysicianJefferson Hospital12/14/23 Daniel Sanchez NP [address] [place] [address] Nurse PractitionerJeff[facility] Hospital06/29/24Te MemberRelationshipSpecialtyStart DateEnd Date Kp Bello MD [address] [place] [address] PCP - [facility]08/10/24 Shira Concepcion MD [address] [place], [place] [phone] Physician Assistant06/29/24 Mike Burkett MD [address] [place] [address] Referring PhysicianJefferson Hospital12/14/23 Daniel Sanchez NP [address] [place] [address] Nurse PractitionerJeff[facility] Hospital06/29/24Te MemberRelationshipSpecialtyStart DateEnd Date Kp Bello MD [address] [place] [address] PCP - [facility]08/10/24 Shira Concepcion MD [address] [place], [place] 7563020 Physician Assistant06/29/24 Mike Burkett MD [address] [place], [place] 40847[address] Referring PhysicianJefferson Hospital12/14/23 Daniel Sanchez, ALFREDO [address] [place] [address] Nurse PractitionerJeff[facility] Hospital06/29/24Te MemberRelationshipSpecialtyStart DateEnd Date Kp Bello MD [address] [place] [address] PCP - [facility]08/10/24 Shira Concepcion MD [address] [place], [place] [phone] Physician Assistant06/29/24 Mike Burkett MD [address] [place], [place] [phone] Referring PhysicianJefferson Hospital12/14/23 Daniel Sanchez NP [address] [place] [address] Nurse PractitionerJeff[facility] Hospital06/29/24Team MemberRelationshipSpecialtyStart DateEnd Date Kp Bello MD [address] [place] [address] PCP - [facility]08/10/24 Shira Concepcion MD [address] [place], [place] [phone] Physician Assistant06/29/24 Mike Burkett MD [address] [place], [place] 9[address]01[address] Referring PhysicianJefferson Hospital12/14/23 Daniel Sanchez NP [address] [place] [address] Nurse PractitionerJeff[facility] Hospital06/29/24Te MemberRelationshipSpecialtyStart DateEnd Date Kp Bello MD [address] [place] [address] PCP - [facility]08/10/24 Shira Concepcion MD [address] [place], [place] [phone] Physician Assistant06/29/24 Mike Burkett MD [address] [place] [address] Referring Physicianmi Medicine12/14/23 Daniel Sanchez NP [address] [place], [place] [address] [address] Nurse PractitionerFamily Medicine06/29/24Team MemberRelationshipSpecialtyStart DateEnd Date Shira Concepcion MD [address] [place] [address] PCP - GeneralPhysician Assistant05/15/24 Mike Burkett MD [address] [place] [address] Referring PhysicianJefferson Hospital12/14/23Team MemberRelationshipSpecialtyStart DateEnd Date Shira Concepcion MD [address] [place] [address] PCP - GeneralPhysician Assistant05/15/24 Mike Burkett MD [address] [place] [address] Referring PhysicianJefferson Hospital12/14/23Team MemberRelationshipSpecialtyStart DateEnd Date Shira Concepcion MD [facility] [place], [place] [phone] PCP - GeneralPhysician Assistant05/15/24 Mike Burkett MD [address] [place], [place] 0313120 Referring Physicianmi Medicine12/14/23Team MemberRelationshipSpecialtyStart DateEnd Date Kp Bello MD [address] [place] [address] PCP - GeneralFamily Unnwcwjz58/31/24 Shira Concepcion MD [address] [place] [address] [phone] Physician Assistant06/29/24 Mike Brukett MD [address] [place] [address] [place] [address] Referring PhysicianJefferson Hospital12/14/23 Daniel Sanchez NP [address] [place] [address] Nurse PractitionerJefferson Hospital06/29/24Team MemberRelationshipSpecialtyStart DateEnd Date Kp Bello MD [address] [place] [address] PCP - [facility]Jeff[facility]08/10/24 Shira Concepcion MD [address] [place] [address] [phone] Physician Assistant06/29/24 Mike Burkett MD [address] [place] [address] [place], [place] 7942620 Referring PhysicianJefferson Hospital12/14/23 Daniel Sanchez NP [address] [place] [address] Nurse PractitionerJefferson Hospital06/29/24Team MemberRelationshipSpecialtyStart DateEnd Date Kp Bello MD [address] [place] [address] PCP - Generalmi Iuhkvguz17/31/24 Shira Concepcion MD [address] [place] [address] Physician Assistant06/29/24 Mike Burkett MD [address] [place] [address] Referring PhysicianJefferson Hospital12/14/23 Daniel Sanchez NP [address] [place] [address] Nurse PractitionerJeff[facility] Hospital06/29/24Te MemberRelationshipSpecialtyStart DateEnd Date Kp Bello MD [address] [place] [address] PCP - [facility]Jeff[facility]08/10/24 Shira Concepcion MD [address] [place] [address] Physician Assistant06/29/24 Mike Burkett MD [address] [place] [address] [place] [address] Referring PhysicianJeff[facility] Hospital12/14/23 Daniel Sanchez NP [address] [place] [address] Nurse PractitionerJeff[facility] Hospital06/29/24Te MemberRelationshipSpecialtyStart DateEnd Date Kp Bello MD [address] [place] [address] [facility] - [facility] Qypubmum06/31/24 [place] [address] [place] [address] Physician Assistant06/29/24 [place] [address] [place] [address] Referring PhysicianJefferson Hospital12/14/23 Daniel Sanchez NP [address] [place] [address] Nurse PractitionerJeff[facility]06/29/24Te MemberRelationshipSpecialtyStart DateEnd Date Kp Bello MD [address] [place] [address] PCP - [facility]Jeff[facility]08/10/24 [place] [address] [place] [address] Physician Assistant06/29/24 [place] [address] [place] [address] [place] [address] Referring PhysicianJefferson Hospital12/14/23 Daniel Sanchez NP [address] [place] [address] Nurse PractitionerManning Regional Healthcare Centerly Medicine06/29/24 Team Status: Active Member Role Status Dates Daniel Sanchez NP-C Primary Care Provider Ac tive Team Status: Inactive Member Role Status Dates Sonia Miller APRN Attending Provider Active S tart: August 02, 2024 End: August 02HYSICIAN NO FAMILYPrimary Care ProviderActiveStart: August 02, 2024 End: August 02, 2024 Team Status: Inactive Member Role Status Dates PHYSICIAN NO FAMILY Primary Care Provider Active Start: September 13, 2024 End: September 13mandjuan Miller APRNAttending ProviderActiveStart: September 13, 2024 End: September 13, 2024 Team Status: Inactive Member Role Status Dates Ab Lopez MD Attending Provider Active Star t: October 26, 2024 End: October 26sherin Sanchez NP-CPrimary Care ProviderActive Start: October 26, 2024 End: October 26, 2024Team MemberRelationshipSpecialtyStart DateEnd Date Kp Bello MD [address] [place] [phone] [facility] Gvvowavq29/31/24 Shira Concepcion MD [address] [place] [address] Physician Assistant06/29/24 Mike Burkett MD [address] [place], [place] [phone] Referring PhysicianJefferson Hospital12/14/23 Daniel Sanchez NP [address] [place] [phone] Nurse PractitionerJeff[facility] Hospital06/29/24Team MemberRelationshipSpecialtyStart DateEnd Date Kp Bello MD [address] [place] [address] PCP - [facility] Vnholvkg03/31/24 Shira Concepcion MD [address] [place] [address] [phone] Physician Assistant06/29/24 Mike Burkett MD [address] [place] [address] [place]ariel[place] [place], [place] [phone] Referring PhysicianJefferson Hospital12/14/23 Daniel Sanchez NP [address] [place] [address] Nurse PractitionerJefferson Hospital06/29/24Team MemberRelationshipSpecialtyStart DateEnd Date Kp Bello MD [address] [place] [address] PCP - GeneralJefferson Hospital08/10/24 Shira Concepcion MD [address] [place] [address] [phone] Physician Assistant06/29/24 Mike Burkett MD [address] [place] [address] [place], [place] [phone] Referring PhysicianJefferson Hospital12/14/23 Daniel Sanchez NP [address] [place] [address] Nurse PractitionerSymmes Hospital Medicine06/29/24Team MemberRelationshipSpecialtyStart DateEnd Date Kp Bello MD [address] [place] [address] PCP - Generalmi Obvxuats17/31/24 Shira Concepcion MD [address] [place] [address] [phone] Physician Assistant06/29/24 Mike Burkett MD [address] [place] [address] [place] [address] Referring PhysicianJefferson Hospital12/14/23 Daniel Sanchez NP [address] [place] [phone] Nurse PractitionerJefferson Hospital06/29/24Team MemberRelationshipSpecialtyStart DateEnd Date Kp Bello MD [address] [place] [address] PCP - GeneralJefferson Hospital08/10/24 Shira Concepcion MD [address] [place] [address] [phone] Physician Assistant06/29/24 Mike Burkett MD [facility] [place] [address] Referring PhysicianJefferson Hospital12/14/23 Dnaiel Sanchez NP [address] [place] [address] Nurse PractitionerJefferson Hospital06/29/24Team MemberRelationshipSpecialtyStart DateEnd Date Kp Bello MD [address] [place] [address] PCP - GeneralSymmes Hospital Cousshks41/31/24 Shira Concepcion MD [address] [place] [address] Physician Assistant06/29/24 Mike Burkett MD [address] [place] [address] Referring PhysicianJefferson Hospital12/14/23 Daniel Sanchez NP [address] [place] [address] Nurse PractitionerJefferson Hospital06/29/24Te MemberRelationshipSpecialtyStart DateEnd Kp Bello MD [address] [place] [address] PCP - GeneralJefferson Hospital08/10/24 Shira Concepcion MD [address] [place] [address] Physician Assistant06/29/24 Mike Burkett MD [address] [place] [address] [place] [address] Referring PhysicianJefferson Hospital12/14/23 Daniel Sanchez NP [address] [place] [address] Nurse PractitionerSymmes Hospital Medicine06/29/24Team MemberRelationshipSpecialtyStart DateEnd Date Kp Bello MD [address] [place] [address] PCP - [facility]08/10/24 Shira Concepcion MD [address] [place] [address] Physician Assistant06/29/24 Mike Burkett MD [address] [place] [address] Referring PhysicianJefferson Hospital12/14/23 Daniel Sanchez, ALFREDO [address] [place] [address] Nurse PractitionerJefferson Hospital06/29/24Team MemberRelationshipSpecialtyStart DateEnd Date Mike Burkett, WAREHOUSE SUPERVISOR-SHEEP FARM MANAGER [address] [place] [address] PCP - [facility] Medicine12/21/22Team MemberRelationshipSpecialtyStart DateEnd Date Mike Burkett, WAREHOUSE SUPERVISOR-SHEEP FARM MANAGER [address] [place] [address] PCP - [facility] Medicine12/21/22Team MemberRelationshipSpecialtyStart DateEnd Date Mike Burkett, WAREHOUSE SUPERVISOR-SHEEP FARM MANAGER [address] [place], [place] [phone] PCP - GeneralFamily Medicine12/21/22Team MemberRelationshipSpecialtyStart DateEnd Date Daniel Sanchez WAREHOUSE SUPERVISOR-[facility] [address] [place] [address] PCP - GeneralNurse Hajaagkwxndv27/9/24Team MemberRelationshipSpecialtyStart Date End Date Daniel Sanchez WAREHOUSE SUPERVISOR-[facility] [address] [place] [address] PCP - GeneralNurse Kwpqjukujypz87/9/24Te MemberRelationshipSpecialtyStart Date End Date Daniel Sanchez WAREHOUSE SUPERVISOR-[facility] [address] [place] [address] PCP - GeneralNurse Iblmpjbxpbmm76/9/24Te MemberRelationshipSpecialtyStart Date End Date Kp Bello MD [address] [place], [place] [address] [address] PCP - GeneralManning [facility] Healthcare Centerly Yenhmoyn25/31/24 Shira Concepcion MD [address] [place], [place] [phone] Physician Assistant06/29/24 Mike Burkett MD [address] [place] [address] Referring PhysicianSymmes Hospital Medicine12/14/23 Daniel Sanchez, ALFREDO [address] [place] [address] Nurse PractitionerManning Regional Healthcare Centerly Medicine06/29/24Team MemberRelationshipSpecialtyStart DateEnd Date Kp Bello MD [address] [place] [address] PCP - GeneralSymmes Hospital Egmlliuz98/31/24 Shira Concepcion MD [address] [place], [place] [phone] Physician Assistant06/29/24 Mike Burkett MD [address] [place] [address] Referring PhysicianJefferson Hospital12/14/23 Daniel Sanchez NP [address] [place] [address] Nurse PractitionerJefferson Hospital06/29/24Te MemberRelationshipSpecialtyStart DateEnd Date Kp Bello MD [address] [place] [address] PCP - [facility]08/10/24 Shira Concepcion MD [facility] [place], [place] 0951820 Physician Assistant06/29/24 Mike Burkett MD [address] [place] [address] Referring PhysicianJefferson Hospital12/14/23 Daniel Sanchez NP [address] [place] [address] Nurse PractitionerJefferson Hospital06/29/24Te MemberRelationshipSpecialtyStart DateEnd Date Kp Bello MD [address] [place] [address] PCP - Generalmily Smyypkbu11/31/24 Shira Concepcion MD [address] [place] [address] Physician Assistant06/29/24 Mike Burkett MD [address] [place] [address] Referring PhysicianSymmes Hospital Medicine12/14/23 Daniel Sanchez NP [address] [place] [address] Nurse PractitionerJefferson Hospital06/29/24Team MemberRelationshipSpecialtyStart DateEnd Date Kp Bello MD [address] [place] PCP - GeneralSymmes Hospital Kfyijpjd33/31/24 Shira Concepcion MD [facility] [place], [place] 1785620 Physician Assistant06/29/24 Mike Burkett MD [address] [place] [address] Referring PhysicianJefferson Hospital12/14/23 Daniel Sanchez NP [address] [place] [address] Nurse PractitionerJefferson Hospital06/29/24Team MemberRelationshipSpecialtyStart DateEnd Date Kp Bello MD [address] [place] PCP - GeneralFamily Mxwmovwy68/31/24 Shira Concepcion MD [address] [place] [address] Physician Assistant06/29/24 Mike Burkett MD [address] [place] [address] Referring Physicianmily Medicine12/14/23 Daniel Sanchez NP [address] [place] [address] Nurse PractitionerSymmes Hospital Medicine06/29/24Team MemberRelationshipSpecialtyStart DateEnd Date Kp Bello MD [address] [place] [address] PCP - Generalmily Uctjtvvu52/31/24 Shira Concepcion MD [address] [place] [address] Physician Assistant06/29/24 Mike Burkett MD [address] [place] [address] Referring Physicianmi Medicine12/14/23 Daniel Sanchez NP [address] [place] [address] Nurse PractitionerJefferson Hospital06/29/24Te MemberRelationshipSpecialtyStart DateEnd Date Kp Bello MD [address] [place] [address] PCP - GeneralFamily Whkxcnez59/31/24 Shira Concepcion MD [address] [place] [address] Physician Assistant06/29/24 Mike Burkett MD [address] [place] [address] Referring Physicianmi Medicine12/14/23 Daniel Sanchez, [facility] [address] [place] [address] Nurse PractitionerJefferson Hospital06/29/24Team MemberRelationshipSpecialtyStart DateEnd Date Kp Bello MD [address] [place] [phone] PCP - GeneralManning Regional Healthcare Centerly Incyryxj97/31/24 Shira Concepcion MD [address] [place] [address] Physician Assistant06/29/24 Mike Burkett MD [address] [place] [address] Referring PhysicianSymmes Hospital Medicine12/14/23 Daniel Sanchez, [facility] [address] [place] [address] Nurse PractitionerJefferson Hospital06/29/24Team MemberRelationshipSpecialtyStart DateEnd Date Daniel Sanchez, WAREHOUSE SUPERVISOR-SHEEP FARM MANAGER [address] [place] [address] PCP - GeneralNurse Betlrjjejagp54/9/24Team MemberRelationshipSpecialtyStart Date End Date Kp Bello MD [address] [place] [address] PCP - [facility]08/10/24 Shira Concepcion MD [address] [place], [place] [phone] Physician Assistant06/29/24 Mike Burkett MD [address] [place] [address] Referring PhysicianJefferson Hospital12/14/23 Daniel Sanchez NP [address] [place] [address] Nurse PractitionerJefferson Hospital06/29/24Te MemberRelationshipSpecialtyStart DateEnd Date Kp Bello MD [address] [place] [address] PCP - [facility]08/10/24 Shira Concepcion MD [facility] [place], [place] [phone] Physician Assistant06/29/24 Mike Burkett MD [address] [place], [place] 9482620 Referring PhysicianJefferson Hospital12/14/23 Daniel Sanchez NP [address] [place] [address] Nurse PractitionerJefferson Hospital06/29/24Te MemberRelationshipSpecialtyStart DateEnd Date Kp Bello MD [address] [place] [address] PCP - GeneralManning [facility] Healthcare Centerly Jogqvhku45/31/24 Shira Concepcion MD [address] [place] [address] Physician Assistant06/29/24 Mike Burkett MD [address] [place] [address] Referring PhysicianSymmes Hospital Medicine12/14/23 Daniel Sanchez NP [address] [address] Nurse PractitionerJefferson Hospital06/29/24Team MemberRelationshipSpecialtyStart DateEnd Date Kp Bello MD [address] [place] PCP - GeneralSymmes Hospital Emxxfkbp93/31/24 Shira Concepcion MD [address] [place] [address] 6835720 Physician Assistant06/29/24 Mike Burkett MD [address] [place] [address] Referring PhysicianJefferson Hospital12/14/23 Daniel Sanchez NP [address] [place] [address] Nurse PractitionerJefferson Hospital06/29/24Team MemberRelationshipSpecialtyStart DateEnd Date Kp Bello MD [address] [place] PCP - GeneralFamily Hjgdsvlp47/31/24 Shira Concepcion MD [address] [place] [address] Physician Assistant06/29/24 Mike Burkett MD [address] [place] [address] Referring Physicianmily Medicine12/14/23 Daniel Sanchez NP [address] [place] [address] Nurse PractitionerJefferson Hospital06/29/24Team MemberRelationshipSpecialtyStart DateEnd Date Kp Bello MD [address]EMI[address] PCP - Generalmily Vdiftdbk13/31/24 Shira Concepcion MD [address] [place] [address] 3713620 Physician Assistant06/29/24 Mike Burkett MD [address] [place] [address] Referring PhysicianSymmes Hospital Medicine12/14/23 Daniel Sanchez NP [address] [place] [address] Nurse PractitionerJefferson Hospital06/29/24Te MemberRelationshipSpecialtyStart DateEnd Date Kp Bello MD [address] [place] [address] PCP - GeneralSymmes Hospital Ylszmhwz21/31/24 Shira Concepcion MD [address] [place] [address] Physician Assistant06/29/24 Mike Burkett MD [address] [place] [address] Referring PhysicianSymmes Hospital Medicine12/14/23 Daniel Sanchez, ALFREDO [address] [place] [address] Nurse PractitionerJefferson Hospital06/29/24Team MemberRelationshipSpecialtyStart DateEnd Date Kp Bello MD [address] [place] [address] PCP - [facility]08/10/24 Shira Concepcion MD [address] [place], [place] 8346920 Physician Assistant06/29/24 Mike Burkett MD [address] [place] [address] Referring PhysicianJefferson Hospital12/14/23 Daniel Sanchez, [facility] [address] [place] [address] Nurse PractitionerJefferson Hospital06/29/24Team MemberRelationshipSpecialtyStart DateEnd Date Kp Bello MD [address] [place] [address] PCP - [facility]08/10/24 Shira Concepcion MD 1 [place] [address] Physician Assistant06/29/24 Mike Burkett MD [address] [place] [address] Referring PhysicianSymmes Hospital Medicine12/14/23 Daniel Sanchez, ALFREDO [address] [place] [address] Nurse PractitionerJefferson Hospital06/29/24Team MemberRelationshipSpecialtyStart DateEnd Date Kp Bello MD [address] [place] [phone] PCP - Generalmily Gepnwiji07/31/24 Shira Concepcion MD 1 [place] [address] Physician Assistant06/29/24 Mike Burkett MD [address] [place] [address] Referring PhysicianJefferson Hospital12/14/23 Daniel Sanchez, ALFREDO [address] [place] [address] Nurse PractitionerJefferson Hospital06/29/24Team MemberRelationshipSpecialtyStart DateEnd Date Shira Concepcion MD 1 [place] [address] Physician Assistant06/29/24 Mike Burkett MD [address] [place] [address] Referring PhysicianSymmes Hospital Medicine12/14/23 Jacque Daniel NP [address] [place] [address] Nurse PractitionerFanhly Medicine06/05/25Team MemberRelationshipSpecialtyStart DateEnd Date Shira Concepcion MD [address] [place] [address] Physician Assistant06/29/24 Mike Burkett MD [address] [place] [address] Referring PhysicianJefferson Hospital12/14/23 Jacque Daniel NP [address] [place] [address] Nurse PractitionerJefferson Hospital06/05/25Te MemberRelationshipSpecialtyStart DateEnd Date Shira Concepcion MD [address] [place] [address] Physician Assistant06/29/24 Mike Burkett MD [address] [place] [address] Referring PhysicianJefferson Hospital12/14/23 Jacque Daniel NP [address] [place] [address] Nurse PractitionerJefferson Hospital06/05/25Te MemberRelationshipSpecialtyStart DateEnd Date Shira Concepcion MD [address] [place] [address] Physician Assistant06/29/24 Mike Burkett MD [address] [place] [address] Referring PhysicianJefferson Hospital12/14/23 Jacque Daniel NP [address] [place] [address] Nurse PractitionerJefferson Hospital06/05/25Team MemberRelationshipSpecialtyStart DateEnd Date Shira Concepcion MD [address] [place] [address] Physician Assistant06/29/24 Mike Burkett MD [address] [place] [address] Referring PhysicianJefferson Hospital12/14/23 Jacque Daniel NP [address] [place] [address] Nurse PractitionerJefferson Hospital06/05/25 Team Status: Inactive Member Role Status Dates Daniel Sanchez NP-C Primary Care Provider Ac tive Start: June 27, 2025 End: June 27, 2025Lisa Grace Daniel NP-CAttending ProviderActiveStart: June 27, 2025 End: June 27, 2025 Team Status: Inactive Member Role Status Dates Daniel Sanchez NP-C Primary Care Provider Ac tive Start: July 18, 2025 End: July 18, 2025Lisa Grace Daniel NP-CAttending ProviderActiveStart: July 18, 2025 End: July 18, 2025Team MemberRelationshipSpecialtyStart DateEnd Date Shira Concepcion MD [address] [place] [address] Physician Assistant06/29/24 Mike Burkett MD [address] [place] [address] Referring PhysicianSymmes Hospital Medicine12/14/23 Jacque Daniel NP [address] [place] [address] Nurse PractitionerJefferson Hospital06/05/25 Team Status: Active Member Role/Relationship Status Dates Jacque Daniel NP-Rani Primary Care Provider Active Team Status: Inactive Member Role/Relationship Status Dates MICK Moyer Primary Care Provider Ac tive Start: June 27, 2025 End: June 27, 2025FRIDA VasquesCAtlei ProviderActiveStart: June 27, 2025 End: June 27, 2025 Team Status: Inactive Member Role/Relationship Status Dates MICK Moyer Primary Care Provider Ac tive Start: July 18, 2025 End: July 18, 2025Jacque Daniel NP-CAtlei ProviderActiveStart: July 18, 2025 End: July 18, 2025 Team Status: Inactive Member Role/Relationship Status Dates FRIDA VasquesC Primary Care Provider Active Start: August 15, 2025 End: August 15, 2025FRIDA VasquesCAttencelina ProviderActiveStart: August 15, 2025 End: August 15, 2025 Reason for Visit (unrecogniz ed section and content) ReasonCommentsEstablish CareReasonOnset DateCommentscounseling appt1 ReasonCommentsNew Patient AssessmentSpecialtyDiagnoses / ProceduresReferred By ContactReferred To ContactBehavioral Health Diagnoses Anxiety Alcohol abuse Procedures [place] OFFICE/OUTPATIENT NEW [facility] 60 MINUTES Daniel Sanchez NP [address] [place] [address] Phone: tel: fax: Stephanie Ibanez, STACIE-S [address] [place] [address] Phone: tel: fax: Referral IDStatusReasonStart DateExpiration DateVisits RequestedVisits [id number] Specialty Services Required /[id number] DateCommentsMed Xdzstt6608/02/2024easonComments Screening and Treatment PlanningReasonCommentsCounseling sesssionReasonComments Counseling sessionReasonCommentsCounsleing sessionReasonCommentsMed RefillReason CommentsMed Change RequestReasonCommentsCounseling SessionReasonCommentsPain ReasonOnset DateCommentsMed Ptqaqq934ReasonCommentsMigraineReasonOnset DateCommentsMed Gurfyb2109/28/2024easonOnset DateCommentsMed Jmimyq8910/02/2024 ReasonCommentsMigraineReasonCommentsFollow-upReasonCommentsPainSpecialty Diagnoses / ProceduresReferred By ContactReferred To ContactOrthopaedic Surgery Diagnoses Primary osteoarthritis, right shoulder Procedures [place] UNLISTED EVALUATION AND MANAGEMENT SERVICE Formerly [facility] [address] [address] Phone: tel: fax: Jr. Evan Michel, DO [address] [address] Phone: tel: fax: Referral IDStatusReasonStart DateExpiration DateVisits RequestedVisits [id number] PainReasonComments Neck PainReasonCommentsNeck PainReasonOnset DateCommentsMed Fdhhen1412/06/2024 ReasonOnset DateCommentsMed Pxyljt4501/17/2025ReasonOnset DateCommentsMed Refill 02/16/2025ReasonOnset DateCommentsMed Lrosap3504/24/2025ReasonOnset DateComments Med Sicite9505/03/2025ReasonCommentsGastroesophageal reflux disease, unspecified whether rfumtlLqwolvSbjlcqoaFpdkgw-xdJdvkxmPybzjpjnJmjnqp-rrFhjpDhvemjYkuxd Date CommentsMed Fsalex4506/05/2025ReasonOnset DateCommentsMed Yzlyfi5907/10/2025 Goals (unrecognized section and content) Goals may be documented in a n alternate section FOR RECORDS PERTAINING TO PATIENTS WHO ARE [...] BE BASED ON THE PRIMARY CLINICAL RECORDS. [employer] provides no warranty or guarantee of the accuracy or completeness of information in this document.
--- NOTE | 2025-08-15 10:54 | XR_ITS ---
The [address] [address] Patient Name: AUTUMN CHILDERS MRN: [id number] date: 1965 Sex: F Assigned Patient Location: LAB Current Patient Location: LAB Accession/Order Number: [id number] Exam Date: 08/15/2025 11:02 Report Date: 08/15/2025 11:28 At the request of: HEVER HORNE NP Procedure: XR foot RT min 3V RIGHT FOOT - 3 views CLINICAL DATA: Pain at the dorsum of the foot and across the toes after patient jammed foot into a chair 4 days ago COMPARISON: None AP, lateral and oblique views were obtained. There is subtle linear lucency at the base of the proximal phalanx of the fifth toe on the AP view. This is difficult to confirm on the remaining images though clinical correlation is suggested as to possibility of nondisplaced fracture. There is no other acute fracture or dislocation. There is minor hallux valgus deformity and cystic degenerative changes at the head of the first metatarsal. There are enthesophytes at the base of the fifth metatarsal and minor spurring at the dorsum of the tarsals. Small calcaneal spurs are seen. There are no significant soft tissue abnormalities. XR/XR foot RT min 3V IMPRESSION: MILD DEGENERATIVE CHANGES. EQUIVOCAL NONDISPLACED FRACTURE AT THE PROXIMAL PHALANX OF THE FIFTH TOE. FOCAL CLINICAL CORRELATION IS SUGGESTED. NO OTHER ACUTE BONY FINDINGS. Impression dictated by: Eden Cisneros M.D. 08/15/2025 11:28 AM Dictation Location: [place] [address] Electronically authenticated by: [id number] Y Date: 08/15/2025 11:28
[2025-08-15 11:54] LABS: Alanine Aminotransferase 20 U/L (14-59); Albumin Globulin Ratio 1.2; Albumin Level 3.7 g/dL (3.4-5.0); Alkaline Phosphatase 52 U/L (46-116); Anion Gap 14.7; Aspartate Amino Transferase 27 U/L (15-37); Blood Urea Nitrogen 11.0 mg/dL (7.0-18.0); Calcium 9.0 mg/dL (8.5-10.1); Carbon Dioxide 26.3 mmol/L (21.0-32.0); Chloride 107 mmol/L (98-107); Estimated GFR (African America >60 (>=60 mL/min/1.73m^2); Estimated GFR (Non-African Ame >60 (>=60 mL/min/1.73m^2); Globulin 3.0 g/dL; Glucose 70 mg/dL (74-106); Potassium 4.0 mmol/L (3.5-5.1); Sodium 144 mmol/L (136-145); Thyroid Stimulating Hormone 1.567 uIU/mL (0.358-3.740); Total Protein 6.7 g/dL (6.4-8.2)
== END 2025-08-15 10:30 | disposition home or self-care (01) ==
LOC: LAB 10:33
PROVIDERS: PCP Nurse Practitioner; Visit Provider Nurse Practitioner
DX: S90.31XA Contusion of right foot, initial encounter (principal); S90.121A Contusion of right lesser toe(s) without damage to nail, initial encounter; E03.9 Hypothyroidism, unspecified; N39.0 Urinary tract infection, site not specified; E87.6 Hypokalemia; R19.7 Diarrhea, unspecified; R11.2 Nausea with vomiting, unspecified; S92.514A Nondisplaced fracture of proximal phalanx of right lesser toe(s), initial encounter for closed fracture
CPT/HCPCS: 36415; 73630; 80053; 84439; 84443

== ENCOUNTER 2025-08-20 09:45 | Outpatient (OUT) | payer MEDICARE, SELFPAY ==
--- OUTSIDE RECORDS SUMMARY | 2025-08-20 09:46 | XMS_ITS | Encounter Summary ---
Author Organization [facility] Address [address] [place] [address] Care Team Providers Care Supervisor Underwriting Clerks Name Role Phone Dagoberto Concepcion MD Unavailable Melissa Burkett MD Unavailable Jacque Daniel NP Unavailable [phone] Reason for Visit * ReasonCommentsMed Refill Encounter Details DateTypeDepartmentCare Team (Latest Contact Info)Pkkxwfnydlq32/01/2025Refill [facility] [address] [facility] [address] [place] [address] Chauncey Figueroa MD [address] [facility] [address] [place], [place] [phone] Migraine with aura, intractable, with status migrainosus Social History Tobacco UseTypesPacks/DayYears UsedDateSmoking Tobacco: NeverSmokeless Tobacco: NeverAlcohol UseStandard Drinks/WeekCommentsYes0 (1 standard drink = 0.6 oz pure alcohol)CommentsNoSex and Gender InformationValueDate RecordedSex Assigned at DocovMtxbtf49/20/2024 11:12 AM EDTLegal FowSqldvt18/15/2023 7:07 PM EDTGender RezsgeauRxcdyw14/20/2024 11:12 AM EDTSexual OrientationNot on file documented as of this encounter Plan of Treatment DateTypeDepartmentCare Team (Latest Contact Info)Kijbfssmbxy72/18/2025 10:00 AM ESTOffice Visit [facility] [address] [facility] [address] [place] [address] Chauncey Figueroa MD [address] [facility] [address] [place] [address] 09/25/2025 9:00 AM ESTOffice Visit [facility] [address] [place] [address] Gregory Galeano PA [address] [place] [address] documented as of this encounter Visit Diagnoses Diagnosis Migraine with aura, intractable, with status migrainosus documented in this encounter Care Teams Team MemberRelationshipSpecialtyStart DateEnd Date Dagoberto Concepcion MD [address] [place] [phone] Physician Assistant06/29/24 Melissa Burkett MD [address] [facility] [place] [address] Referring PhysicianFamily Medicine12/14/23 Jacque Daniel NP [address] [place] [address] Nurse PractitionerFamily Medicine06/05/25documented as of this encounter
--- OUTSIDE RECORDS SUMMARY | 2025-08-20 09:46 | XMS_ITS | Clinical Summary ---
Author Organization [facility] Address [address] [place] [address] Care Team Providers Care Retail Management Trainee Name Role Phone Dagoberto Concepcion MD Unavailable Melissa Burkett MD Unavailable Jacque Daniel NP Unavailable [phone] Allergies Active AllergyReactionsCriticalityNoted DateCommentsAcetaminophen-CodeineRashLow 05/20/20166996TjfajgbAmvmBia22/08/2016 Other Reaction(s): Trouble Breathing KetorolacHallucinations,Hives07/14/20105067DijarsmikdgqDpafp94/04/2010Sulfa AntibioticsHives,PbgwYcu4807/14/2010 Other Reaction(s): Hives Sulfamethoxazole-YuvqftmokrwvSecfMtf54/06/0402CgqdxwoucdYzsre85/04/2010 Medications MedicationSigDispense QuantityRefillsLast FilledStart DateEnd DateStatus albuterol (2.5 MG/3ML) 0.083% nebulizer solution INHALE 3 ML VIA NEBULIZER THREE TIMES DAILY, NEEDED 30 DAYSActive albuterol HFA 90 mcg/act inhaler Inhale 2 puffs every 6 (six) hours if hcvghp895Active rOPINIRole (Requip) 4 MG tablet Indications:RLS (restless [...] morning. Take before meals. 90 tablet 5Active Uqdvsjvbhwh-Hvafbwscr-Xtbxqz (Trelegy Ellipta) 100-62.5-25 MCG/ACT aerosol powder Indications:Moderate [...] needed at bedtime for sleep 30 tablet /573809/6Active topiramate (Topamax) 200 MG tablet Indications:Migraine with [...] paraspinals - dexa. Moderate persistent asthma without gqdjowjpwfeo08/28/2025 Assessment & Plan (05/07/2025 11:00 AM EDT): Add ronald Goodman, #1 sample MV9W, exp 11/05 Use albuterol prn 8 weeks Acute non-recurrent tahfffyoxxwd29/29/2025 Assessment & Plan (02/06/2025 12:10 PM EDT): Atb, fluids, rest, saline irrigation Fu if not better Mixed ivgnytvmnekxvp41/01/2025 Assessment & Plan (01/09/2025 6:30 AM EDT): On statin therapy Check labs yearly and prn dose changes Other specified mexecar5201/09/2025Intervertebral disc stenosis of neural canal of cervical nfndtw7801/02/2025 Assessment & Plan (01/09/2025 10:21 AM EDT): Pain mgmt injections Acute cystitis without /06/2024 Assessment & Plan (08/16/2024 5:10 PM EST): Was seen at [facility] on 08/02/2024 for UTI symptoms. Was treated with Keflex X7 days. Completed treatment on 08/09 Reports today symptoms: Admits: Morning urgency Denies: Burning with urination Odor in urine Blood in urine UA in office today was negative. PTSD (post-traumatic stress disorder)08/04/2024Wellness vdvfdkyorar21/07/2024 Assessment & Plan (07/17/2024 2:24 PM EDT): [...] for screening mammogram for malignant neoplasm of mqxudn2307/17/2024 Insomnia, xkzuxqjkklthfhjbkjx56/27/2024 Assessment & Plan (05/29/2025 11:41 AM EDT): [...] EDT): (Re)start zolpidem 10 hs. Poor sleep spcukam0906/06/2024 Assessment & Plan (01/16/2025 11:05 AM EDT): (Continue sleep hygiene improvements as prev discussed.Limit napping!) Assessment & Plan (11/07/2024 11:23 AM EST): (Continue sleep hygiene improvements as prev discussed.) Assessment & Plan (10/10/2024 12:59 PM EST): Sleep hygiene improvements as discussed. Assessment & Plan (06/06/2024 12:56 PM EDT): Sleep hygiene improvements as discussed. 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 R parietal. Not a neoplasm of brain. Assessment & Plan (02/29/2024 12:03 PM EDT): --- Hx of. R parietal. Not a neoplasm of brain. (No tx necessary.) Migraine with aura, intractable, with status uzgmftmkqar67/02/2023 Assessment & Plan (05/29/2025 11:41 AM EDT): [...] then 200 bid. Submit for ere 70. #[id number] given Family history of cerebral /02/2023 Assessment & Plan (05/29/2025 11:41 AM EDT): [...] 5:41 PM EDT): CTA head - [facility]. Vfymroy5102/03/2023 Assessment & Plan (01/09/2025 10:12 AM EDT): Current medication: effexor, also as elavil AARON 7=6 Assessment & Plan (07/17/2024 3:46 PM EDT): Currently taking Effexor 150mg; Does not attend therapy or counseling. Denies SI/HI; Feels symptoms are more prominent since she stopped drinking alcohol. Is agreeable to therapy at this time. Brain tumor (benign)3Carpal tunnel lgfvorti05/26/2023Chronic pain 02/03/2023 Overview (05/15/2024): neck and back Coronary artery wpfnxzr9602/03/2023ERD (gastroesophageal reflux disease) 02/03/2023 Assessment & Plan [...] not better will send back to GI Usiocolrzkfe48/26/2023 Assessment & Plan (01/09/2025 6:23 AM EDT): [...] back with them to next visit. Nasal tvyhuoupucml24/28/2022RLS (restless legs syndrome)07/01/2021 Assessment & Plan (05/29/2025 [...] y old. 2020 note suggests DME is [facility] [place]. *REMINDER* - check that parts or machine [...] old sleep studies - [facility] somewhere. Neurologic ocbqkujktdi76/19/2019Unspecified cstxuvpcjnv22/19/2019 Assessment & Plan (01/09/2025 6:21 AM EDT): Followed with Neurology Cervical spondylosis without imudedypji26/28/2017 Assessment & Plan (01/16/2025 11:12 AM EDT): Cont with pain mgt Continue HEP/Stretches. She states PT not affordable Consider [facility] Altered mental fhwhsg1403/18/2016Cervico-occipital neuralgia of the right side 05/14/2012lcohol abuse08/14/2010 Assessment & Plan (07/17/2024 3:49 PM EDT): States she quit drinking alcohol 2 months ago 'cold turkey.' Feels anxiety/depression has worsened slightly since. Referral sent to . Major depressive disorder, recurrent episode, igjirxjf00/04/2010 Assessment & Plan (01/09/2025 10:12 AM EDT): [...] at this time. Referral sent to . Wgfxziblcduivn07/04/2010 Assessment & Plan (05/07/2025 6:23 AM EDT): Currently taking levothyroxine Check labs yearly, prn dose changes and changes in sxs Assessment & Plan (01/09/2025 6:24 AM EDT): Currently taking levothyroxine Check labs yearly, prn dose changes and changes in sxs Juyhtjc3707/14/2010 Resolved Problems ProblemNoted DateDiagnosed DateResolved DateNasal /01/2025 05/07/2025High wxktnbanqhr30/26/202304/10/2024 Assessment & Plan (08/16/2024 5:12 PM EST): Currently taking atorvastatin 20mg Denies any myalgias. Check Lipid Panel today. Continue current regimen. Assessment & Plan (07/17/2024 3:47 PM EDT): Currently taking atorvastatin 20mg Denies any myalgias. Check Lipid Panel today. Continue current regimen. Vdehcvxwgi66 Assessment & Plan (01/09/2025 6:26 AM EDT): Current meds: elavil, and effexor PHQ 9= Severe recurrent major depression without psychotic vdpgvfys99/08/ Zbklni07 Assessment & Plan (05/07/2025 6:23 AM EDT): Current med: albuterol prn Flares with bad colds, and season changes, Minimal use Assessment & Plan (01/09/2025 10:14 AM EDT): Current med: albuterol prn Flares with bad colds, and season changes, Minimal use Sgjpdecuuxvc64/04/201004/10/2024 Assessment & Plan (10/25/2024 9:16 AM EST): Currently taking atorvastatin 20mg Denies any myalgias. Check Lipid Panel today. Continue current regimen. Encounters DateTypeDepartmentCare PqgrFmogbcbwsaa03/01/2025Refill [facility] [address] [place] [address] Chauncey Figueroa MD Migraine with aura, intractable, with status nzbiaipltis69/17/2025Refill [facility] [address] [facility] [address] [place] [phone] Chauncey Figueroa MD Migraine with aura, intractable, with status ckmjcecnlxz59/30/2025Refill [facility] [address] [facility] [address] [place] [phone] Erna Squires MA Insomnia, yvaeapwerpsbtxnnjzi67/16/2025 1:[address] [facility] [address] [facility] [address] [place] [phone] Chauncey Figueroa MD Trigger point (Primary Dx)06/26/2025amb flowsheet [facility] [address] [place] [phone] Chauncey Figueroa MD 06/26/20258109Niwuto32/04/2025Refill [facility] [address] [facility] [address] [place] [phone] Chauncey Figueroa MD Degenerative disc disease, rpodqsbo13/26/2025 9:10 AM EDTAncillary Procedure [facility] [phone] 06/05/2025 9:00 AM EDTOffice Visit [facility] [address] [place] [phone] Gregory Galeano PA Acute pain of left shoulder (Primary Dx); Arthritis of left /26/2025Refill [facility] [address] [facility] [address] [phone] Chauncey Figueroa MD Insomnia, psychophysiological; Migraine with aura, intractable, with status mpzpefufcel82/26/2025amb flowsheet [facility] [address] [place], [place] [address] [phone] Gregory Galeano PA 06/05/20255788Sxwdho94/19/2025 [address] [facility] [address] [facility] [address] [facility] [address] [place] [phone] Chauncey Figueroa MD Trigger point of neck (Primary Dx); RICHA (obstructive sleep apnea); Migraine with aura, intractable, with status migrainosus ; Family history of cerebral aneurysm; Insomnia, psychophysiological; Cervical paraspinal muscle spasm; RLS (restless legs syndrome); Intractable migraine with status migrainosus, unspecified migraine type 05/29/2025[facility] [address] [place] [address] Chauncey Figueroa MD 05/29/2025amb flowsheet [facility] [address] [place] [phone] Chauncey Figueroa MD 05/29/20256960Gwcuyp93/12/2025 9:15 AM EDTOffice Visit [facility] [address] [place] [address] Gregory Galeano PA Acute pain of right shoulder (Primary Dx); Arthritis of right /12/2025amb flowsheet [facility] [address] [place] [address] Gregory Galeano PA 05/22/2025Travelfrom Last 3 Months Immunizations ImmunizationAdministration DatesNext DueInfluenza, injectable, MDCK, preservative free, irgyvatdybod47/19/2023Influenza, injectable, quadrivalent, preservative free09/17/2022,08/26/2021Influenza, recombinant, quadrivalent, injectable, preservative free08/16/2018Pneumococcal Polysaccharide PPSV23 03/22/2013Tdap02/10/2023 Family History RelationNameStatusCommentsBrotherAliveFatherDeceasedMaternal GrandfatherDeceased Maternal GrandmotherDeceasedMotherDeceasedPaternal GrandfatherDeceasedPaternal GrandmotherDeceased Social History Tobacco UseTypesPacks/DayYears UsedDateSmoking Tobacco: NeverSmokeless Tobacco: Never Tobacco Cessation:Counseling Given: Not Answered Alcohol UseStandard Drinks/WeekCommentsYes0 (1 standard drink = 0.6 oz pure alcohol)CommentsNoSex and Gender InformationValueDate RecordedSex Assigned at XbemlRbhrzy20/20/2024 11:12 AM EDTLegal SpsEhdzjz73/15/2023 7:07 PM EDTGender GertmlznHrlzdo28/20/2024 11:12 AM EDTSexual OrientationNot on file Last Filed Vital Signs Vital SignReadingTime TakenCommentsBlood Bsiujiaz379/70005/07/2025 9:11 AM EDT Vtflr1822/28/2025 9:11 AM IMWVqhvmglrkgc65.9 ??C (98.5 ??F)05/07/2025 9:11 AM EDTRespiratory Ihyt075405/07/2025 9:11 AM EDTOxygen Bzahukdpdf46%05/07/2025 9:11 AM EDTInhaled Oxygen Concentration--Aldiag75.9 kg (154 lb)05/29/2025 11:11 AM MIJZjhnzf080.1 cm (5' 5 )05/29/2025 11:11 AM EDTBody Mass Index25.6308 11:11 AM EDT Plan of Treatment DateTypeDepartmentCare Team (Latest Contact Info)Boltkrsighk06/18/2025 10:00 AM ESTOffice Visit [facility] [address] [facility] [address] [place] [address] Chauncey Figueroa MD [address] [facility] [address] [place], [place] [phone] 09/25/2025 9:00 AM ESTOffice Visit [facility] [address] [place] [address] Gregory Galeano PA [address] [place] [address] Health MaintenanceDue DateLast DoneCommentsCT Iefnzvkebkkn18/11/1964FIT-DNA 1963FIT1963 8659Mzlfxrguwxitk24/11/1964Pap Smear1984HPV/Cotest 1993COVID-19 Vaccine ( season)/, 08/31/2023, 09/21/2021, Additional history existsInfluenza Vaccine (#1)/, 09/17/2022, 08/26/2021, Additional history syvobkQczyppgzq32, 07/26/2024, 02/24/2023, Additional history dszfvaDDCF48 Vytchvgvfsf42/08//olorectal Cancer Yzxduqydz26/08/2034Pneumococcal Vaccine: Pediatrics (0 to 5 Years) and At-Risk Patients (6 to 64 Years)Aged Out 03/22/2013No longer eligible based on patient's age to complete this topic Cervical Cancer ScreeningDiscontinued Procedures Procedure NamePriorityDate/TimeAssociated DiagnosisCommentsPR ARTHROCENTESIS ASPIR&/INJ MAJOR JT/BURSA W/WVTfbmrhk16/26/2025 9:25 AM EDT Arthritis of left shoulder XR SHOULDER 2+ VIEWS PAHLAwwyndq31/26/2025 9:07 AM EDT Acute pain of left shoulder [place] ARTHROCENTESIS ASPIR&/INJ MAJOR JT/BURSA W/LYLdkfhvd28/12/2025 9:11 AM EDT Acute pain of right shoulder Arthritis of right shoulder OCCULT BLOOD X 1, UJMMGYrlgvgf67/23/2024 8:29 AM EST Anemia, unspecified type BI MAMMOGRAM SCREENING TOMOSYNTHESIS WSGMZSIRV00/16/2024 1:05 PM EDT from Last 3 Months or Most Recently Relevant to Health Maintenance Results * MN ARTHROCENTESIS ASPIR&/INJ MAJOR JT/BURSA W/US (06/05/2025 9:25 [...] neurovascular intact s/p injection. . ( Codes 16494) Procedure, treatment alternatives, risks and benefits explained, [...] Galeano PAIMG XR PROCEDURES Final Result * MN ARTHROCENTESIS ASPIR&/INJ MAJOR JT/BURSA W/US (05/22/2025 9:11 [...] neurovascular intact s/p injection. . ( Codes 75705-NO) Procedure, treatment alternatives, risks and benefits explained, specific risks discussed. Consent was given by the patient. Patient was prepped and draped in the usual sterile fashion. Authorizing ProviderResult TypeResult StatusMatthew Grace Galeano PAIN CLINIC/BEDSIDE ORDERABLESFinal Result * Occult blood x 1, stool (09/02/2024 8:29 AM EST)ComponentValueRef RangeTest MethodAnalysis TimePerformed AtPathologist SignatureFECAL GLOBIN RESULT:SEE NOTEQUESTComment: ??FECAL GLOBIN BY IMMUNOCHEMISTRY ?Micro Number: ?[id number] ??Test Status: ? Final ??Specimen Source: ?? [...] INCORRECT, PLEASE CONTACT CLIENT SERVICES. PHONE NUMBER: [phone] Specimen (Source)Anatomical Location / LateralityCollection Method / Volume Collection TimeReceived TimeStoolRectal contents / Wfzslnh2909/01/2024 2:21 PM EST Narrative Resulting Agency Comment Performing Organization Information ?Site ID: QPT ?Name: [facility] ?Address: [address] [place], [place] [address] , [address] [place] [address] ?Director: Jeferson Clark MD Authorizing ProviderResult TypeResult StatusBritttracey Sanchez NPLAB BODY FLUIDS AND STOOLS ORDERABLESFinal ResultPerforming OrganizationAddress City/State/ZIP CodePhone Number [facility] * Bilateral screening mammogram with tomosynthesis (07/26/2024 1:05 PM EDT) Anatomical RegionLateralityModalityBreastBilateralMammographySpecimen (Source) Anatomical Location / LateralityCollection Method / VolumeCollection Time Received Time07/26/2024 1:05 PM EDT Narrative 07/26/2024 1:04 PM EDT [facility]1965 [id number] EXAM: MAMM SCREENING BILATERAL W CAD, 07/26/2024 [...] MAMM 1 YR FDA Accredited Performing Facility: [facility] - Mammography/DEXA Imaging [address] [facility] [address] Procedure Note Radiology, Radiologist, - 07/26/2024 [facility] 1965 [id number] EXAM: MAMM SCREENING BILATERAL W CAD, 07/26/2024 [...] MAMM 1 YR FDA Accredited Performing Facility: [facility] - Mammography/DEXA Imaging [address] [place] [address] Authorizing ProviderResult TypeResult StatusBrittany Sanchez NPIMG BI PROCEDURESFinal Result from Last 3 Months or Most Recently Relevant to Health Maintenance Insurance Care Teams Team MemberRelationshipSpecialtyStart DateEnd Date Dagoberto Concepcion MD [address] [place] [address] Physician Assistant06/29/24 Melissa Burkett MD [address] [place] [address] Referring PhysicianFamily Medicine12/14/23 Jacque Daniel NP [address] [place] [address] Nurse PractitionerFamily Medicine06/05/25
--- OUTSIDE RECORDS SUMMARY | 2025-08-20 09:47 | XMS_ITS | Clinical Summary ---
Author Organization Press [employer] [facility] tem Address [id number] [address] [place] [address] Care Team Providers Care Diamond Driller Helper Name Role Phone Jacque Daniel APRN-POTATO CHIP SACKING MACHINE OPERATOR Primary Care Provider Allergies Active AllergyReactionsCriticalityNoted BfboXuseiemnIbjrlckOvxnIlx33 KetorolacHives,Iyrxvjeyjoimxq68Promethazine ErwXqetc78/06/2017Sulfa (Sulfonamide Antibiotics)Hives,SaspPap0007/14/2010Sulfamethoxazole-Trimethoprim RxhlLcl7604/15/20170554PgjyggdgtxCcqsn49/04/2010 Medications * This document contains information received [...] total) by mouth in the morning. Discontinued omeprazole (PriLOSEC) 40 mg capsule Take 1 capsule (40 mg total) by mouth in the morning for 14 days. 14 capsule Expired Active Problems ProblemNoted DateDiagnosed DateIntervertebral disc stenosis of neural canal of cervical isiyjo2801/02/20254122Iwehweu37/26/4286Phfzfh61/26/2023rain tumor (benign) 02/03/2023arpal tunnel epcmjmhl55/26/2023hronic pain02/03/2023 Overview (02/03/2023): neck and back Coronary artery thsfxpg4802/03/2023ERD (gastroesophageal reflux disease) 02/03/2023High ktmbswiejei56/26/9909Pfwjudddcjon98/26/2023Hypothyroidism 02/03/2023Nasal skoxyqmhggfk56/28/2022Restless leg vopzoesd05/21/2021hronic migraine with aura04/30/20214472Xlracdnciw00/21/2021OSA (obstructive sleep apnea) 04/30/2021New onset rdylsno2206/29/2019Neurologic hathlhasakx06/19/2019Cervical spondylosis without obimdpvidh99/28/2017Severe recurrent major depression without psychotic ysrerygq38/08/2016Altered mental fsyywg0903/18/2016 Encounters DateTypeDepartmentCare WvegFhvwijxbosh34/ 1:18 AM EDT - 08/05/2025 3[facility] [address] [place] [id number] Jatin Perez MD Nausea vomiting and diarrhea (Primary Dx); Hypokalemia; Acute cystitis without hematuria Discharge Disposition: Home08/05/20257310Qwuftg35/09/2025 11:41 AM EDT - 06/19/2025 12:50 [facility] [address] [address] Closed head injury, initial encounter (Primary Dx); Concussion without loss of consciousness, initial encounter; Contusion of scalp, initial encounter Discharge Disposition: Home06/19/2025Travelfrom Last 3 Months Immunizations ImmunizationAdministration DatesNext DueInfluenza, Injectable, quadrivalent (PF) 08/26/2021Influenza, Recombinant, Quadrivalent, Injectable, Odstwzb8108/16/2018 Tdap02/10/2023 Family History Medical HistoryRelationNameCommentsProstate cancerFatherOvarian cancerMaternal Aunt 1Ovarian cancerMaternal Aunt 2Ovarian cancerMaternal Aunt 3Ovarian cancer Maternal Aunt 4AneurysmMotherCerebral aneurysmMotherRestless legs syndromeMother RelationNameStatusCommentsFatherDeceasedMaternal Aunt 1Maternal Aunt 2Maternal Aunt 3Maternal Aunt 4MotherDeceased Social History Tobacco UseTypesPacks/DayYears UsedDateSmoking Tobacco: NeverSmokeless Tobacco: Never Tobacco Cessation:Counseling Given: Not Answered Alcohol UseStandard Drinks/WeekCommentsNot Currently0 (1 standard drink = 0.6 oz pure alcohol)PHQ-2AnswerDate RecordedTotal Btoss647/21/2021ChildcareAnswerDate SkneghtdXibtrqbygWzwyoaf68/12/2019EmploymentAnswerDate RecordedEmploymentUnknown 03/22/2019Hunger ScreeningAnswerDate RecordedWithin the past 12 months we worried whether our food would run out before we got money to buy more.Never True08/05/2025Within the past 12 months the food we bought just didn't last and we didn't have money to get more.Never True08/05/2025Purpose - LifeAnswerDate RecordedPurpose and direction in sqdjJpervad05/02/2021CommentsNoSex and Gender InformationValueDate RecordedSex Assigned at WwnroCwcdij62/11/2024 2:41 PM EDTLegal XznWvjlhp56/06/2015 11:22 AM EDTGender IdentityNot on fileSexual OrientationNot on file Last Filed Vital Signs Vital SignReadingTime TakenCommentsBlood Uhosskxs465/8408/05/2025 3:33 AM EDT Lmrhk690308/05/2025 3:33 AM ZYZZmhdmkhdlyi34.9 ??C (98.4 ??F)08/05/2025 1:23 AM EDTRespiratory Axng9289 3:33 AM EDTOxygen Bekelyirqq50%08/05/2025 3:33 AM EDTInhaled Oxygen Concentration--Drelwu80 kg (150 lb)08/05/2025 1:23 AM EDT Dupqzf567.1 cm (5' 5 )08/05/2025 1:23 AM EDTBody Mass Index24.9608/05/2025 1:23 AM EDT Plan of Treatment Health MaintenanceDue DateLast DoneCommentsDepression Epcxqpelj84/11/1976Zoster (Shingles) Vaccine (1 of 2)2013RSV ( or age 60+ yrs) (1 - Risk 60- 74 years 1-dose series)4COVID-19 Vaccine ( season)2025 10/08/2024, 08/31/2023, 09/17/2022, Additional history existsInfluenza Vaccine /, 09/17/2022, 08/26/2021, Additional history existsStatin Use: Ipkrrpdcevdhjh59/28/202607/dult BMI Adauglcbz68 Tobacco Ocrlrkgzi23DTaP,Tdap and Td Vaccines (2 - Td or Tdap) Goals GoalPatient Goal TypeAssociated ProblemsRecent ProgressPatient-Stated?Author <enter goal here> Marisol Rose, RN Note: Evaluation of progress towards goal: snf Medical Devices ImplantedTypeAreaManufacturerDevice IdentifierShelf Expiration DateModel / Serial / LotCranialDescription:titanium plate Procedures Procedure NamePriorityDate/TimeAssociated DiagnosisCommentsC DIFFICILE BY PCR STAT1 3:24 AM EDT GI PANEL STOOL PATHOGEN KFHACSJQH50/26/2025 3:24 AM EDT POCT NURSING URINE MACROSCOPIC WKMmrcknu53/26/2025 3:21 AM EDT ER EXTRA BHJKGPBNO26/26/2025 3:18 AM EDT EXTRA TUBES BLUE VBLShslzfg72/26/2025 1:36 AM EDT EXTRA VUVDDExipckb41/26/2025 1:36 AM EDT MTSLVJZQZP29/26/2025 1:33 AM EDT LIVER RUVRBPZFN95/26/2025 1:33 AM EDT BASIC METABOLIC ANWBPQCCV46/26/2025 1:33 AM EDT CBC WITH AUTO FAEJARGYNDSIDNJR98/26/2025 1:[address] BRAIN WO CRYYRSKR15/09/2025 12:11 PM EDT from Last 3 Months Results * GI Panel(stool pathogen panel) (08/05/2025 3:24 AM EDT)ComponentValueRef Range Test MethodAnalysis TimePerformed AtPathologist SignatureCAMPYLOBACTERNot DetectedNot Txesisev64/26/2025 11:22 AM [facility] PLESIOMONASNot DetectedNot Bvrjollc50/26/2025 11:22 AM [facility] LABORATORYSALMONELLANot DetectedNot Ozfexfqw51/26/2025 11:22 AM [facility] LABORATORYVIBRIONot DetectedNot Wduvahas57/26/2025 11:22 AM [facility] LABORATORYVIBRIO CHOLERAENot DetectedNot Btygrvta86/26/2025 11:22 AM [facility] LABORATORYY. ENTEROCOLITICANot DetectedNot Xbhigshf05/26/2025 11:22 AM [facility] LABORATORYAGGREGATIVE E COLINot DetectedNot Qjetiske45/26/2025 11:22 AM [facility]ORATORYPATHOGENIC E COLINot DetectedNot Ddelxwba08/26/2025 11:22 AM [facility] LABORATORYTOXIGENIC E COLINot DetectedNot Hprqvltv14/26/2025 11:22 AM [facility]ORATORYSHIGA TOXIN E COLINot DetectedNot Tsdnnpto62/26/2025 11:22 AM [facility] LABORATORYSHIGELLA-E COLINot DetectedNot Detected 08/05/2025 11:22 AM [facility]ORYCRYPTOSPORIDIUMNot DetectedNot Cjhxghfq84/26/2025 11:22 AM [facility] CYCLOSPORANot DetectedNot Lwtqnfsr85/26/2025 11:22 AM [facility]ORYE HISTOLYTICANot DetectedNot Utwiseyv05/26/2025 11:22 AM [facility] LABORATORYGIARDIA LAMBLIANot DetectedNot Detected 08/05/2025 11:22 AM [facility]ORATORYADENOVIRUSNot DetectedNot Gwcqnicr70/26/2025 11:22 AM [facility] ASTROVIRUSNot DetectedNot Dubuixjf08/26/2025 11:22 AM [facility]ORATORYNOROVIRUSNot DetectedNot Efzhzwcu82/26/2025 11:22 AM [facility] LABORATORYROTAVIRUS ANot DetectedNot Detected 08/05/2025 11:22 AM [facility] LABORATORYSAPOVIRUSNot DetectedNot Uqupdfjh80/26/2025 11:22 AM [facility] Specimen (Source)Anatomical Location / LateralityCollection Method / Volume Collection TimeReceived TimeStoolFeces / Eorzqpt1908/05/2025 3:24 AM EDT 08/05/2025 3:29 AM EDT Narrative Authorizing ProviderResult TypeResult StatusJatin Perez MDBODY FLUIDS AND STOOLS ORDERABLESFinal ResultPerforming OrganizationAddressCity/State/ZIP Code Phone Number [facility] [address] [place] [address], * C difficile by PCR (08/05/2025 3:24 AM EDT)ComponentValueRef RangeTest Method Analysis TimePerformed AtPathologist SignatureTOXIGENIC C DIFFNegativeNegative 08/05/2025 10:52 AM [facility] QJFDLPFMHB205 STO4Wjdjmbotsui NegativePresumptive Wdcbrtos35/26/2025 10:52 AM [facility] LABORATORYComment:Assay methodology is nucleic acid amplification by real-time PCR for detection of C. difficile toxin gene sequences performed on i[employer]IM[employer] GeneXSOAK (Smart Operational Agricultural toolKit) Instrument System.Specimen (Source)Anatomical Location / Laterality Collection Method / VolumeCollection TimeReceived TimeStoolFeces / Unknown 08/05/2025 3:24 AM EDT1 3:29 AM EDT Narrative Authorizing ProviderResult TypeResult StatusJatin JOY FLUIDS AND STOOLS ORDERABLESFinal ResultPerforming OrganizationAddressCity/State/ZIP Code Phone Number [facility] [address] [place] [address], * (ABNORMAL) POCT Nursing Urine Macroscopic UA (08/05/2025 3:21 AM EDT)Component ValueRef RangeTest MethodAnalysis TimePerformed AtPathologist SignaturePROCTOR [facility] Urine Specific Francisco>=1.030(A)1.010, 1.015, 1.020, 1.3593608/05/2025 3:21 AM EDPRE[facility] Urine Leukocyte EsteraseTrace(A) Tmjaspwj38/26/2025 3:21 AM [facility] Urine GeluglmHywgzdmtYrzprftn99/26/2025 3:21 AM [facility] Urine pH6.05.0, 6.0, 6.5, 7.0, 7.5, 8.0, 8.5, 5. 3:21 AM [facility] Urine ProteinTrace(A)Negative 08/05/2025 3:21 AM [facility] Urine Glucose AazxourqIpkvewwc10/26/2025 3:21 AM [facility] Urine FqjlakwBttimdojDujijnlm48/26/2025 3:21 AM [facility] Urine Urobilinogen0.2 E.U./dL08/05/2025 3:21 AM [facility] Urine UcfatzyhvTvwtqrefDgipoyao35/26/2025 3:21 AM [facility] Urine Blood/HGBNegativeNegative 08/05/2025 3:21 AM [facility] (Source) Anatomical Location / LateralityCollection Method / VolumeCollection Time Received NbhqWzbfn99/26/2025 3:21 AM EDT1 3:21 AM EDT Narrative Authorizing ProviderResult TypeResult StatusJatin Perez MDPOINT OF CARE TEST ORDERABLESFinal ResultPerforming OrganizationAddressCity/State/[place] [address], * Extra Urine (08/05/2025 3:18 AM EDT)ComponentValueRef RangeTest MethodAnalysis TimePerformed AtPathologist SignatureExtra TubeAuto Nqvfxzsg64/26/2025 5:01 AM [facility] (Source)Anatomical Location / LateralityCollection Method / VolumeCollection TimeReceived TimeUrineUrine specimen collection, clean catch / Hmmeddk2708/05/2025 3:18 AM EDT1 3:22 AM EDT Narrative Authorizing ProviderResult TypeResult StatusJatin Perez MDURINE ORDERABLESFinal ResultPerforming OrganizationAddressCity/State/ZIP CodePhone Number [address] [place] [address], [place] * Light Blue Top (08/05/2025 1:36 AM EDT)ComponentValueRef RangeTest Method Analysis TimePerformed AtPathologist SignatureExtra TubeAuto Resulted 08/05/2025 3:01 AM [facility] (Source) Anatomical Location / LateralityCollection Method / VolumeCollection Time Received TimeBloodVenous blood / Golddoz8808/05/2025 1:36 AM EDT1 1:36 AM EDT Narrative Authorizing ProviderResult TypeResult StatusJatin Perez MDLAB BLOOD ORDERABLES Final ResultPerforming OrganizationAddressCity/State/ZIP CodePhone Number [address] [place] [address], [place] * (ABNORMAL) CBC auto differential (08/05/2025 1:33 AM EDT)ComponentValueRef RangeTest MethodAnalysis TimePerformed AtPathologist MqdmzxwurYEC14.64 - 11 x10E9/L1 1:42 AM [facility]OSPITALRBC Count4.17 3.8 - 5.2 X10E12/L1 1:42 AM [facility] Txbkehphsz24.011.7 - 15.5 g/dL08/05/2025 1:42 AM [facility]OSPITALHematocrit38.735 - 47 %08/05/2025 1:42 AM EDTPREGENCY HOSPITAL COMPANYMCV9380 - 100 fL08/05/2025 1:42 AM EDHOLZER HEALTH SYSTEMMCH31.327 - 34 pg08/05/2025 1:42 AM EDTPREGENCY HOSPITAL COMPANYMCHC33.732 - 36 g/dL08/05/2025 1:42 AM [facility] HOSPITALRDW13.111.5 - 15 %08/05/2025 1:42 AM [facility] HOSPITALPlatelet Ousmo591154 - 450 X10E9/L1 1:42 AM EDT [facility]ITALMPV7.17 - 12 fL08/05/2025 1:42 AM EDT [facility] HOSPITALNeutrophils %74.6%08/05/2025 1:42 AM EDT [facility] HOSPITALLymphocytes %14.0%08/05/2025 1:[address] [facility] HOSPITALMonocytes %7.2%08/05/2025 1:[address] [facility] HOSPITALEosinophils %4.0%08/05/2025 1:42 AM EDT [facility]ITALBasophils %0.2%08/05/2025 1:42 AM EDT [facility] HOSPITALNeutrophils Absolute (A)7.9(H)1.5 - 6.6 10*3/uL08/05/2025 1:42 AM EDTPREGENCY HOSPITAL COMPANYLymphocytes Absolute1.51.0 - 3.5 10*3/uL08/05/2025 1:42 AM EDTPMERCY HEALTH URBANA [facility] HOSPITALMonocytes Absolute0.80.0 - 0.9 10*3/uL08/05/2025 1:42 AM EDTPMERCY HEALTH URBANA HOSPITAL HOSPITALEosinophils Absolute0.40.0 - 0.4 10*3/uL08/05/2025 1:42 AM EDHOLZER HEALTH SYSTEMBasophils Absolute0.00.0 - 0.2 10*3/uL08/05/2025 1:42 AM EDHOLZER HEALTH SYSTEMDifferential TypeAUTOMATED QRXFFCKERNWL56/26/2025 1:42 AM EDEAST OHIO [facility]IONAL HOSPITALpecimen (Source)Anatomical Location / LateralityCollection Method / VolumeCollection TimeReceived TimeBloodVenous blood / UnknownVenipuncture / Caftulo0108/05/2025 1:33 AM EDT1 1:35 AM EDT Narrative Authorizing ProviderResult TypeResult StatusJatin Perez MDLAB BLOOD ORDERABLES Final ResultPerforming OrganizationAddressCity/State/ZIP CodePhone Number [address] [place] [address], [place] * Lipase (08/05/2025 1:33 AM EDT)ComponentValueRef RangeTest MethodAnalysis Time Performed AtPathologist LtujxqrzwLWMTTT4632 - 40 U/L1 1:52 AM EDT [facility]ITALpecimen (Source)Anatomical Location / LateralityCollection Method / VolumeCollection TimeReceived TimeBloodVenous blood / UnknownVenipuncture / Ycnxfzt6208/05/2025 1:33 AM EDT1 1:35 AM EDT Narrative Authorizing ProviderResult TypeResult StatusJatin Perez MDLAB BLOOD ORDERABLES Final ResultPerforming OrganizationAddressCity/State/ZIP CodePhone Number [address] [place] [address], [place] * Liver panel (08/05/2025 1:33 AM EDT)ComponentValueRef RangeTest MethodAnalysis TimePerformed AtPathologist SignatureTOTAL PROTEIN7.76.0 - 8.0 g/dL08/05/2025 1:59 AM EDTPREGENCY HOSPITAL COMPANYALBUMIN4.53.2 - 5.3 g/dL 08/05/2025 1:59 AM EDTPREGENCY HOSPITAL COMPANYBILIRUBIN,TOTAL0.40.3 - 1.2 mg/dL08/05/2025 1:59 AM [facility] HOSPITALALKALINE IHDTJYSQQCF4982 - 130 U/L1 1:59 AM EDTPREGENCY HOSPITAL COMPANYAST21<=41 U/L1 1:59 AM EDHOLZER HEALTH SYSTEM ALT17<=31 U/L1 1:59 AM [facility] BILIRUBIN,DIRECT0.1<=0.4 mg/dL08/05/2025 1:59 AM EDTPFISHER-TITUS MEDICAL CENTERpecimen (Source)Anatomical Location / LateralityCollection Method / VolumeCollection TimeReceived TimeBloodVenous blood / UnknownVenipuncture / Eclskpu9708/05/2025 1:33 AM EDT1 1:35 AM EDT Narrative Authorizing ProviderResult TypeResult StatusJatin PEREZ BLOOD ORDERABLES Final ResultPerforming OrganizationAddressCity/State/ZIP CodePhone Number [facility] [address] [place] [address], * (ABNORMAL) Basic Metabolic Panel (08/05/2025 1:33 AM EDT)ComponentValueRef RangeTest MethodAnalysis TimePerformed AtPathologist JxosxykeoWZMFHY384636 - 146 mmol/L1 1:59 AM [facility] HOSPITALPOTASSIUM 3.0(L)3.5 - 5.0 mmol/L1 1:59 AM [facility] HOSPITALCHLORIDE114(H)98 - 109 mmol/L1 1:59 AM [facility] HOSPITALCARBON QOZUIME06(L)22 - 32 mmol/L1 1:59 AM EDT [facility] HOSPITALANION GAP95 - 15 mmol/L1 1:59 AM [facility] HOSPITALBLOOD UREA ZVCSWBUH211 - 27 mg/dL 08/05/2025 1:59 AM [facility] HOSPITALCREATININE0.820.40 - 1.00 mg/dL08/05/2025 1:59 AM [facility] HOSPITALComment: METHOD TRACEABLE TO IDMS WPKEXQAPKZQJBKX810(H)65 - 99 mg/dL08/05/2025 1:59 AM [facility] HOSPITALCALCIUM9.18.5 - 10.5 mg/dL08/05/2025 1:59 AM [facility] HOSPITALEGFR Non-Race Vobgfbcew69>=60 ml/min/1.73sq.m1 1:59 AM [facility] Comment: eGFR not reported due to [...] ORDERABLES Final ResultPerforming OrganizationAddressCity/State/ZIP CodePhone Number [facility] [address] [place] [address], [place] * CT brain without contrast (06/19/2025 [...] PM Authorizing ProviderResult TypeResult StatusSufelisa Ana M Dumont IMG CT ORDERABLES Final Result from Last 3 Months Insurance Advance Directives * Full Code (Latest Code Status on File) Date ActivatedDate InactivatedComments06/29/2019 3:32 AM06/30/2019 8:36 PM * Full Code Date ActivatedDate InactivatedComments03/19/2016 2:20 AM03/20/2016 7:39 PM * Full Code Date ActivatedDate InactivatedComments03/18/2016 11:34 PM03/19/2016 1:50 AM Care Teams Team MemberRelationshipSpecialtyStart DateEnd Date Jacque Daniel, WORKING SECOND HAND-POTATO CHIP SACKING MACHINE OPERATOR [address] [place] [address] PCP - GeneralNurse Practitioner06/19/25
--- OUTSIDE RECORDS SUMMARY | 2025-08-20 09:47 | XMS_ITS | Clinical Summary ---
Author Organization [facility] Address [address] [place] [address], [address] [place] [address] Care Team Providers Care Rescue Instructor Name Role Phone TyreseFawad billings Primary Care Provider [phone] Allergies Active AllergyReactionsCriticalityNoted OwjwYpbcdmweHbktdie07/08/2016Sulfa Yhjkknmshag74/08/2239Rpwvagrulm37/08/2016 Medications MedicationSigDispense QuantityRefillsLast FilledStart DateEnd DateStatus lisinopril [...] InformationValueDate RecordedSex Assigned at BirthNot on fileLegal WzlJryjux94/08/2016 12:25 AM EDTGender IdentityNot on fileSexual OrientationNot on file Last Filed Vital Signs Vital SignReadingTime TakenCommentsBlood Huhvywcb595/7403/18/2016 1:20 PM EDT Gduah099903/18/2016 1:20 PM KFALphvngpvmxd50.2 ??C (99 ??F)03/18/2016 1:20 PM EDT Respiratory Cwzm432003/18/2016 1:20 PM EDTOxygen Wyfkwrylph69%03/18/2016 1:20 PM EDTInhaled Oxygen Concentration--Ywmfzf315.3 kg (230 lb)03/18/2016 12:28 AM EDT Waaiyd965 cm (5' 3 )03/18/2016 12:28 AM EDTBody Mass Index40.7403/18/2016 12:28 AM EDT Plan of Treatment Not on file Care Teams Team MemberRelationshipSpecialtyStart DateEnd Date Fawad Xiong DO [address] [place] [address] [facility] - General03/18/16
--- OUTSIDE RECORDS SUMMARY | 2025-08-20 09:47 | XMS_ITS | Clinical Summary ---
Author Organization [facility] Address [address] [place] [address] Care Team Providers Care Hand Laster Name Role Phone Fawad Xiong Primary Care Provider Allergies Active AllergyReactionsCriticalityNoted DateCommentsPromethazine HclHives 07/14/2010Sulfa (Sulfonamide Antibiotics)Hives07/14/2010TizanidineHives 08/14/20107824TcyomvgjaGwocs92/04/2010 Medications MedicationSigDispense QuantityRefillsLast FilledStart DateEnd DateStatus simvastatin [...] by mouth at bedtime as needed. FOR YKEASMIX929/28/2012ctive lisinopril 20 mg tablet Take 20 mg [...] side 05/14/2012lcohol abuse08/14/2010Major depressive disorder, recurrent episode, rivkcaoa26/04/4097Zasqacyq07/04/8205Bxedjpx87/04/7888Iotuiytgsabq86/04/2010 Gapqpx4607/14/20102188Aecorytygefwhp61/04/2010Other syndromes affecting cervical region Family History Medical HistoryRelationCommentsAsthmaBrotherHeadacheChildBreast CancerMaternal AuntHypertensionMotherHeadacheSisterRelationStatusCommentsBrotherChildFather DeceasedMaternal AuntMotherDeceasedSister Social History Tobacco UseTypesPacks/DayYears UsedDateSmoking Tobacco: NeverSmokeless Tobacco: NeverAlcohol UseStandard Drinks/WeekCommentsNo0 (1 standard drink = 0.6 oz pure alcohol)quit drinking 2014CommentsNoSex and Gender InformationValueDate RecordedSex Assigned at BirthNot on fileLegal MqhXvnjzk10/02/2012 10:05 AM EST Gender IdentityNot on fileSexual OrientationNot on fileOccupationIndustryJob Start DateJob End DatedisabledNot on fileNot on fileNot on file Last Filed Vital Signs Vital SignReadingTime TakenCommentsBlood Gkslzwih508/6309/06/2015 10:24 AM EST Vkxqj244009/06/2015 10:24 AM RUJTsovqeqiaaq20.5 ??C (97.7 ??F)09/06/2015 10:24 AM ESTRespiratory Smoh761711/06/2014 10:24 AM ESTOxygen Nofcbfzqkj03%09/06/2015 10:24 AM ESTInhaled Oxygen Concentration--Apbhnd43.7 kg (200 lb)09/06/2015 10:24 AM THLKuzrpz803.1 cm (5' 5 )09/06/2015 10:24 AM ESTBody Mass Index33.28111/06/2014 10:24 AM EST Plan of Treatment Health MaintenanceDue DateLast DoneCommentsAnxiety Bivwbdcfp42/11/1982Depression Msyxntmda37/11/1982HIV Wzopuiocc88/11/1982Hepatitis C Movplhzzo50/11/1982 DTaP,Tdap,Td Vaccine (1 - Tdap)1982Cervical Cancer Mymrzbhqx83/11/1985 Mammogram Aqjbwwonw32/11/2004CT Mmdevzualifv64/11/2009Cologuard (FIT-DNA) 10/21/20080396Ylscfnxdnzl15/11/2009Colorectal Cancer Tmvjqlqta58/11/2009Fecal Occult Blood2008Lipid Pzdpbrrpk43/11/1496Zddumunonolxm95/11/2009Pneumococcal Vaccine: 50+ (1 of 1 - PCV)2013Shingrix Vaccine (1 of 2)2013Diabetes Fdebykriv38, 10/17/2014, 10/25/2013, Additional history exists Covid-19 Vaccine (1 - 2024- season)2025Influenza Vaccine (#1)2025 RSV Vaccine (1 - 1-dose 75+ series)2038 Procedures Procedure NamePriorityDate/TimeAssociated DiagnosisCommentsBASIC METABOLIC PANEL Mbttfgo7308/29/2015 9:57 AM EST Other chronic pain Mechanical complication of nervous system device, implant, and graft, sequela [T85.698S] from Last 3 Months or Most Recently Relevant to Health Maintenance Results * (ABNORMAL) BASIC METABOLIC PNL (08/29/2015 9:57 AM EST)ComponentValueRef Range Test MethodAnalysis TimePerformed AtPathologist PtflatremZhvuenz6816 - 100 mg/dL08/29/2015 12:45 PM ESTSAL[facility] LABORATORYBUN6(L)8 - 25 mg/dL08/29/2015 12:45 PM ESTMERCY [facility] MAIN LABORATORYCreatinine0.810.70 - 1.40 mg/dL08/29/2015 12:45 PM ESTCLEPAULDING COUNTY [facility]IN SSBMZCNFQWEsglyc160 132 - 148 mmol/L110/29/2014 12:45 PM [facility] Potassium3.3(L)3.5 - 5.0 mmol/L110/29/2014 12:45 PM [facility] BVVVWPCVOABtwxoxqw76542 - 110 mmol/L110/29/2014 12:45 PM [facility] FIXDZNULCRZP64802 - 32 mmol/L110/29/2014 12:45 PM [facility] LABORATORYAnion Gap16(H)0 - 15 mmol/L110/29/2014 12:45 PM [facility] LABORATORYCalcium9.68.5 - 10.5 mg/dL08/29/2015 12:45 PM [facility] LABORATORYeGFR->6008/29/2015 12:45 PM [facility] LABORATORYeGFR-All Other Races>60.08/29/2015 12:45 PM EST [facility]ORATORYComment: eGFR (Estimated GFR) Units of measure: [...] StatusDenise Fish DAMON-CLABORATORYFinal ResultPerforming OrganizationAddressCity/State/ZIP CodePhone Number [facility] [address] [place] [address] from Last 3 Months or Most Recently Relevant to Health Maintenance Insurance Care Teams Team MemberRelationshipSpecialtyStart DateEnd Date Fawad Xiong DO PCP - Ztvoawn49/11/15
--- NOTE | 2025-08-20 09:49 | MM_ITS ---
Patient Name: AUTUMN CHILDERS MR#: [id number] : 1965 Exam Date: 08/20/2025 Ordering Doctor: ROXANA HORNE CNP RADIOLOGY REPORT PROCEDURE: MM TOMOSYNTHESIS SCREENING BI COMPARISON: MM TOMOSYNTHESIS SCREENING BI, 07/26/2024. MM TOMOSYNTHESIS SCREENING BI, 02/24/2023. MM TOMOSYNTHESIS SCREENING BI, 07/23/2020. INDICATIONS: Screening Calculator Name NCI Breast Cancer Risk Assessment Tool 5 Year Breast Cancer Risk 1.80% Lifetime Breast Cancer Risk 8.60% Personal Breast Cancer No Personal Ovarian Cancer No Treatments None Family Cancers None LOCATION: [facility] BREAST COMPOSITION: There are scattered areas of fibroglandular density. FINDINGS: RIGHT BREAST: No significant suspicious finding. LEFT BREAST: No significant suspicious finding. Benign-appearing calcifications are present. There is a similar focal asymmetry. DIAGNOSTIC CATEGORY 2--BENIGN FINDING. NO CHANGE FROM COMPARISON. RECOMMENDATIONS: ROUTINE MAMMOGRAM AND CLINICAL EVALUATION IN 12 MONTHS. Dictated by: Chauncey Campa MD on 08/20/2025 at 13:02 Approved by: Chauncey Campa MD on 08/20/2025 at 13:15
--- OUTSIDE RECORDS SUMMARY | 2025-08-20 09:51 | XMS_ITS | CCD ---
Author Organization [facility] Team Providers Care Material Handler Floorperson Name Role Phone KORINA HERNANDEZ Admitting Unavailable KORINA HERNANDEZ Attending Unavailable HOUSE, DR CASTILLO Primary Care Unavailable NELSON ODEN Consulting Unavailable HOUSE, DR CASTILLO Admitting Unavailable HOUSE, DR CASTILLO Attending Unavailable HOUSE, DR CASTILLO Primary Care Unavailable HOUSE, DR CASTILLO Consulting Unavailable MIKE BURKETT Primary Care Physician [phone] MIKE BURKETT Referring Unavailable NILL, Jaswant Erazo Attending Unavailable NILL, Jaswant Erazo Attending Unavailable MADELAINE, MIKE Referring Unavailable NILL, Jaswant Erazo Attending Unavailable Kp Bello MD Primary Care Provider [phone] Shira Concepcion MD Unavailable Mike Burkett MD Unavailable Laura FUENTES, Daniel Unavailable Angela, MEGAN Bassett Attending Provider [phone] Unallocated , [place] Provider Primary Care Provi atif Kp Bello MD Primary Care Provider Sonia Miller Admitting Unavailable AngelaSonia Attending Unavailable NO FAMILY, PHYSICIAN Primary Care Unavailable Angela Sonia M Attending Unavailable Angela Sonia M Admitting Unavailable NO FAMILY, PHYSICIAN Primary Care Unavailable Shira Concepcion MD Primary Care Provider Angela Sonia GUZMAN Attending Provider NO FAMILY, PHYSICIAN Primary Care Provider Unava ilable Madelaine GUZMAN-Mike SCHMIDT Primary Care Provider Laura HAIRN-BLUE LEATHER SETTERDaniel Primary Care Pr ovider Daniel Sanchez NP Unavailable Sanchez CORE MAKER-BLUE LEATHER SETTER, Daniel Donal Primary Care Pr ovider María MANAGER OF INTERNATIONAL, Jacque Unavailable María MANAGER OF INTERNATIONAL, Jacque Unavailable Sanchez MANAGER OF INTERNATIONAL-C, Daniel Mansfield Primary Care Provid er María MANAGER OF INTERNATIONAL-C, Jacque Edwards Attending Provider KRISTA GALEANO Attending Unavailable KRISTA GALEANO Referring [...] Attending Unavailable PB PRASAD Referring Unavailable SANCHEZ, [facility] Primary Care Unavaila DENISE Morris Attending Unavailable LAURA, DANIEL N Referring Unavaila ble LAURA, [facility] Primary Care Unavaila PB Ngo Attending Unavailable [...] Care Unavailable NATA ALLISON Attending Unavailable Sanchez MANAGER OF INTERNATIONAL-C, Daniel Mansfield Primary Care Provid er María MANAGER OF INTERNATIONAL-CJacque Attending Provider María MANAGER OF INTERNATIONAL-CJacque Primary Care Provider [phone] Allergies Allergy ClassificationReported Allergen(s)Allergy TypeDate of OnsetReaction(s) Facility (2 sources)Codeine; Translations: [CODEINE]Drug Scirsyp67-27-0420Xzg [facility] Repository (1 source)Sulfonamides (Antibiotic)Drug allergy (disorder)18-51-1430Lyq [facility] Repository (2 sources)tiZANidine; Translations: [TIZANIDINE]Drug Gvakevl66-88-1150Xjk [facility] Repository (1 source)Egg/PoultryDrug allergy (disorder)05-41-6906Ndy [facility] Repository (2 sources)Sulfonamides (Antibiotic); Translations: [sulfa drugs]Drug allergy Weal (disorder)[facility] (20 sources)Acetaminophen / CodeineDrug Reoghxt82-98-3731QoajGASJ [facility] (20 sources)CodeineDrug Hshrdxg13-05-7549AwvcMINQ Healthcare (20 sources)Ketorolac; Translations: [KETOROLAC]Allergy to ckwyvzqtu76-12-1904 [facility] ([facility])PromethazineDrug Qfwnhog64-73-9438AqljhKEOZ Healthcare (20 sources)Sulfamethoxazole / Trimethoprim; Translations: [SULFAMETHOXAZOLE-TRIMETHOPRIM]Drug Jxraqyl56-33-7670FxruLYYJ Healthcare (20 sources)Sulfonamides (Antibiotic)Drug Ytkbjqc81-84-9559Jobyy, RashNOCox [place] (20 sources)tiZANidineDrug Owfmmop29-43-9388YwpbqNJWX Healthcare (3 sources)Sulfonamides (Antibiotic); Translations: [SULFA (SULFONAMIDE ANTIBIOTICS)]Drug allergy (disorder)83-79-7324[facility]afcAv[facility] (8 sources)KetorolacDrug Zjooldv75-36-3649WtjblMedStar [facility] (9 sources)Promethazine; Translations: [PROMETHAZINE HCL]Drug Pkbtjpo94-56-[address] [facility] Medications Current Medications MedicationDrug Class(es)DatesSig (Normalized)Sig (Original)albuterol 0.83 mg/ml inhalation solution (20 sources)beta2-Adrenergic AgonistStart: 54-53-3018vagu 2.5 mg by inhalation every four to six hours as needed for wheezingAlbuterol Sulfate 2.5 mg /3 mL (0.083 %) solution for nebulization Active 2.5 MG INHALATION EVERY 4-6 HOURS as needed for shortness of breath or wheezing 90 July 09, 2025 11:00pm Dyspnea Dyspnea, unspecified Complies with drug therapyStart: 93-79-0416qgnj 2 puff(s) by inhalation every six hoursalbuterol HFA 90 mcg/act inhaler Inhale 2 puffs every 6 (six) hours if needed 10/23/2024 ActiveStart: 83-88-5979Chmwrduqq Sulfate 90 mcg/actuation HFA aerosol inhaler Active 2 INH INHALATION EVERY 4-6 HOURS as needed for shortness of breath or wheezing 8.5 0 September 13, 2024 12:00am Complies with drug therapyStart: 08-02-2024 End: 65-84-1411Ehmmenwto Sulfate 90 mcg/actuation HFA aerosol inhaler Discontinued [...] 100 mg oral tablet (20 sources)Tricyclic AntidepressantStart: 18-72-4706Wufjtdxdtvknl Active MG PO August 02, 2024 12:00amStart: 12-09-2023 End: 34-97-3141Dvpnljhymxweo 100 mg tablet Active MG PO August 01, 2024 11:00pm Complies with drug therapycelecoxib 100 mg oral capsule (20 sources)Nonsteroidal Anti-inflammatory DrugStart: 10-10-2024 End: 88-51-1445myjx 1 capsule by mouth at bedtimecelecoxib (CeleBREX) 100 MG capsule Indications: Degenerative disc disease, cervical TAKE 1 CAPSULE(100 MG) BY MOUTH IN THE MORNING AND BEFORE BEDTIME 60 capsule 3 06/14/2025 Active clindamycin 300 mg oral capsule (1 source)Lincosamide AntibacterialStart: 05-17-2024 End: 41-35-1119tyzqhgbtimf (CLEOCIN) 300 mg capsule Take 1 capsule (300 mg total) by mouth in the morning and 1 capsule (300 mg total) at noon and 1 capsule (300 mg total) in the evening and 1 capsule (300 mg total) before bedtime. 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 05/17/2024 05/27/2024 Active cyclobenzaprine hydrochloride 10 mg oral tablet (20 sources)Muscle RelaxantStart: 46-51-8499Acomfzuvfyegqkc Active MG PO August 02, 2024 12:00amStart: 12-09-2023 End: 93-99-8779vfou 1 tablet by mouth three times daily as needed for muscle spasmsCyclobenzaprine 10 mg tablet Active 10 MG PO Three times daily as needed for muscle spasm 90 2 August 15, 2025 10:03am Chronic pain Other chronic pain Complies with drug therapy1 ml dexamethasone phosphate 4 mg/ml injection (2 sources)CorticosteroidStart: 06-26-2025 End: 51-50-4551rptGTMQVyqrwi (Decadron) injection 12 mgStart: 06-26-2025 End: 89-19-6485rlrpiz 12 mg by subcutaneous injection once12 mg, Intramuscular, Once, On Wed06/26/25 at 1645, For 1 dose, Subcutaneous, trigger pointsdiclofenac sodium 75 mg delayed release oral tablet (1 source)Nonsteroidal Anti-inflammatory DrugStart: 50-66-6674nxxw 1 tablet by mouth twice dailydiclofenac sodium 75 mg Oral EC Tab 75 mg = 1 tab(s), Oral, BID, Refills(s) 0 Start Date: 12/09/23 Status: Orderedfluticasone propionate 0.05 mg/actuat metered dose nasal spray (20 sources)CorticosteroidStart: 71-68-2747vsyb 1 spray(s) nasal route once dailyFluticasone Propionate (Flonase Allergy Relief) 50 mcg/actuation spray,suspension Active 2 SPRAY INTRANASAL Daily June 26, 2025 11:00pm administer into each nostril Complies with drug therapyStart: 12-19-2024 End: 07-01-6598fbcy 2 spray(s) nasal route once dailyfluticasone (Flonase) 50 MCG/ACT nasal spray Indications: Chronic rhinitis Administer 2 sprays intoeach nostril Daily Shake gently. Before first use, prime pump. After use, clean tip and replace cap. 48 mL 1 05/07/2025 08/05/2025 ActiveStart: 54-85-4347kvpy 1 spray(s) nasal route in the morningfluticasone (Flonase) 50 MCG/ACT nasal spray Indications: Chronic rhinitis SPRAY 1 SPRAY INTO EACH NOSTRIL IN THE MORNING 24 mL 2 11/20/2024 ActiveStart: 09-25-2024 End: 59-02-8121mtst 1 spray(s) nasal route in the morningfluticasone [...] puff 2 (two) times a day as needed.CapbvkCmsfswpjfto-Xsvhlhfqc-Trbopune (20 sources)Anticholinergic, Corticosteroid, beta2-Adrenergic AgonistStart: 66-18-4242Cdynfwnczeg-Umeclidin-Vilanter (Trelegy Ellipta) 100-62.5-25 mcg blister with device Active 1 INH INHALATION Daily 60 5 August 08, 2025 10:57am Moderate persistent asthma Moderate persistent asthma, uncomplicated Complies with drug therapyStart: 06-27-2025 End: 44-67-1134Xsiqhziaucw-Umeclidin-Vilanter (Trelegy Ellipta) 100-62.5-25 mcg blister with device Discontinued 1INH INHALATION Daily June 26, 2025 11:00pm August 08, 2025 10:58amStart: 06-27-2025 Pjfylivsdab-Pxwxmflll-Xyextyls (Trelegy Ellipta) 100-62.5-25 mcg blister with device Active 1 INH INHALATION Daily June 27, 2025 12:00am Complies with drug therapyStart: 05-07-2025 End: 30-71-1432gtfp 1 puff(s) by mouth once blultHvwehyfhcbc-Xthhujusb-Pntkum (Trelegy Ellipta) 100-62.5-25 MCG/ACT aerosol powder Indications: Moderate persistent asthma without complication (HCC) Inhale 1 puff Daily Rinse mouth after use 60 each 2 05/07/2025 Active1 ml galcanezumab-gnlm 120 mg/ml auto-injector (5 sources)Start: 11-21-2024 End: 28-08-3127ozahdnwonnwf (Emgality) 120 MG/ML auto-injector Indications: Migraine with aura, intractable, with status migrainosus (CMS/HCC) Inject 1 Syringe (120 mg) under the skin every 30 (thirty) days 1 each 11/21/2024 12/13/2024 Discontinued (Med list cleanup)glucosamine sulfate 750 mg oral tablet (20 sources)Start: 09-18-2024 End: 01-23-7934zmtx 1 tablet by mouth once dailyGlucosamine Sulfate 750 MG tablet Indications: Intervertebral disc stenosis of neural canal of cervical region Take 750 mg by mouth Daily 90 tablet 1 01/09/2025 04/09/2025 ActiveStart: 35-67-3427labzmaywdtt 750 mg oral tablet See Instructions, as directed, Refills(s) 0 Start Date: 12/09/23 Status: Ordered End: 48-63-6488gajp 1 tablet by mouth once dailyGlucosamine 750 [...] sodium 0.088 mg oral capsule (20 sources)l-ThyroxineStart: 69-09-1712xjbi 1 capsule by mouth once daily Levothyroxine 88 mcg capsule Active 88 MCG PO Daily September 13, 2024 12:00am Complies with drug therapyStart: 08-18-2024 End: 25-63-7669iffg 1 tablet by mouth before mealtimelevothyroxine (Synthroid, Levoxyl) 88 MCG tablet Indications: Hypothyroidism, unspecified type Take1 tablet (88 mcg) by mouth in the morning. Take before meals. 90 tablet 1 05/07/2025 08/05/2025 ActiveStart: 08-02-2024 End: 82-59-2470Mukhzakcmycpj 112 mcg tablet Discontinued MCG PO August 01, 2024 11:00pm September 13, 2024 5:20pmStart: 57-81-0936Ppzwwvfsfmlrk Active MCG PO August 02, 2024 12:00amStart: 41-53-7702chnc 1 tablet by mouth once daily levothyroxine 112 mcg (0.112 mg) Tab 112 mcg = 1 tab(s), Oral, Daily, Refills(s) 0 Start Date: 12/09/23 Status: Orderedloratadine 10 mg oral tablet (20 sources)Start: 01-09-2025 End: 69-52-7594yduf 1 tablet by mouth once dailyLoratadine (Allergy Relief (Loratadine)) 10 mg tablet Active 10 MG PO Daily June 26, 2025 11:00pm Complies with drug hefybrn05 hr metoprolol succinate 50 mg extended release oral tablet (12 sources)beta-Adrenergic BlockerStart: 85-38-5542uyax 1 tablet by mouth once dailyMetoprolol Succinate 50 mg tablet extended release 24 hr Active 50 MG PO Daily June 261:00pm Complies with drug therapyStart: 05-29-2025 End: 27-55-2117auoj 1 tablet by mouth every twenty-four hours [...] capsule (20 sources)Proton Pump InhibitorStart: 05-31-2019 End: 93-04-0585lvtl 1 capsule by mouth once dailyOmeprazole 40 mg capsule,delayed release(DR/EC) Active 40 MG PO Daily September 13, 2024 12:00am Complies with drug therapypotassium gluconate 2.5 meq oral tablet (20 sources)Start: 10-25-2024 End: 71-23-3097rigb 1 tablet by mouth once dailyPotassium Gluconate 595 mg (99 mg) tablet Active 595 MG PO Daily July 06, 2025 11:00pm Complies with drug therapytake 1 tablet by mouth in the morningpotassium gluconate 600 mg (99 mg) tablet Take 1 tablet by mouth in the morning. ActivepredniSONE 10 mg oral tablet (7 sources)Start: 05-29-2025 End: 59-13-0275xkym 6 tablets by mouth once daily, then [...] mg oral tablet (20 sources)Nonergot Dopamine AgonistStart: 22-99-5221Ttvpisvlom Active MG PO August 02, 2024 12:00amStart: 01-22-2023 End: 92-36-6900Cbropjblal 4 mg tablet Active MG PO August 01, 2024 11:00pm Complies with drug therapysimvastatin 40 mg oral tablet (4 sources)HMG-CoA Reductase Inhibitor End: 57-56-7357ftts 1 tablet by mouth at bedtimesimvastatin (Zocor) 40 MG tablet Take 40 mg by mouth at bedtime 11/01/2024 Discontinued (Med list cleanup) SUMAtriptan 50 mg oral tablet (20 sources)Serotonin-1b and Serotonin-1d Receptor AgonistStart: 59-08-7525wfzg 1 tablet by mouth every two hoursSumatriptan Succinate 50 mg tablet Active 0 PO .COMPLEX June 26, 2025 11:00pm take 1 tab at onset of headache; if no relief may repeat 1 tab after at least 2 hrs; max = 4 tabs/24 hr PO Complies with drug therapyStart: 12-15-2024 End: 98-49-5223nrdj 1 tablet by mouth every two hoursSumatriptan Succinate 50 mg tablet Active 0 PO .COMPLEX June 27, 2025 12:00am take 1 tab at onset of headache; if no relief may repeat 1 tab after at least 2 hrs; max = 4 tabs/24 hr PO Complies with drug therapyStart: 09-22-2021 End: 87-45-1553MXPYalcmudb (IMITREX) 50 mg tablet Indications: Chronic migraine with aura Take 1 tablet (50 mg total) by mouth once as needed for migraine. May repeat in 2 hours if unresolved. Do not exceed 200 mg in 24 hours. 9 tablet 3 09/22/2021 Activetopiramate 200 mg oral tablet (20 sources)Start: 08-02-2024 End: 16-67-1541hllp 1 tablet by mouth twice daily in the morning, then take 2 tablets by mouth in the eveningTopiramate 200 mg tablet Active 200 MG PO Twice daily June 26, 2025 11:00pm 1 am, 2 pm Complies with drug therapyStart: 97-38-8134anxttduifr (Topamax) 200 MG tablet Indications: Migraine with aura, intractable, with status migrainosus 1 tab QAM and 2 tabs QPM 270 tablet 1 12/05/2024 ActiveStart: 28-12-8573Qjtaxgmlsg Active MG PO August 02, 2024 12:00amStart: 05-17-2024 End: 37-79-7482brfi 1 tablet by mouth in the morning, then take 2 tablets by mouth in the eveningtopiramate (Topamax) 200 MG tablet Indications: Migraine with aura, intractable, with status migrainosus (CMS/HCC) TAKE 1 TABLET BY MOUTH IN THE MORNING AND 2 TABLETS IN THE EVENING 270 tablet 1 06/13/2024 ActiveStart: 55-75-5883ozen 1 tablet by mouth once dailytopiramate 50 mg Tab 50 mg = 1 tab(s), Oral, Daily, Refills(s) 0 Start Date: 12/09/23 Status: OrderedStart: 99-18-5968lctm 1 tablet by mouth twice dailytopiramate (TOPAMAX) [...] by mouth 3 (three) times a day. Mxttoj45 hr venlafaxine 75 mg extended release oral capsule (20 sources)Serotonin and Norepinephrine Reuptake InhibitorStart: 80-66-8470jnra 1 capsule by mouth once dailyVenlafaxine (Effexor Xr) 75 mg capsule,extended release 24hr Active 75 MG PO Daily June 26, 2025 11:00pm Complies with drug therapyStart: 10-25-2024 End: 12-62-3735gpkr 1 capsule by mouth once dailyVenlafaxine (Effexor Xr) 75 mg capsule,extended release 24hr Active 75 MG PO Daily June 27, 2025 12:00am Complies with drug therapyStart: 83-75-8635qrdh 1 capsule by mouth every twenty- four hoursVenlafaxine 150 mg capsule,extended release 24hr Active MG PO August 01, 2024 11:00pmStart: 08-02-2024 End: 69-75-5880ahnn 1 capsule by mouth every twenty-four hoursVenlafaxine 150 mg capsule,extended release 24hr Discontinued MG PO August 01, 2024 11:00pm June 27, 2025 8:07amStart: 70-71-7508Fhtuermzaqf Active MG PO August 02, 2024 12:00amStart: 12-09-2023 End: 27-49-4999rdsj 1 capsule by mouth once dailyvenlafaxine 150 mg Cap-ER 150 mg = 1 cap(s), Oral, Daily, Refills(s) 0 Start Date: 12/09/23 Status: Ordered zolpidem tartrate 10 mg oral tablet (20 sources)gamma-Aminobutyric Acid-ergic AgonistStart: 45-21-4163Ksbbzctt Active MG PO August 02, 2024 12:00amStart: 06-06-2024 End: 51-44-8448Rnxrqllv 10 mg tablet Active MG PO August 01, 2024 11:00pm Complies with drug therapy Completed/Discontinued Medications MedicationDrug Class(es)DatesSig (Normalized)Sig (Original)amoxicillin 875 mg / clavulanate 125 mg oral tablet (7 sources)Penicillin-class AntibacterialStart: 07-18-2025 End: 01-77-3424pxcn 1 tablet by mouth twice daily at mealtimeAmoxicillin-Pot Clavulanate 875-125 mg tablet Discontinued 1 TAB PO Twice daily 20 0 July 17, 2025 11:00pm August 15, 2025 9:40am Acute sinusitis Acute sinusitis, unspecified take with foodStart: 02-06-2025 End: 52-17-6855ktrk 1 tablet by mouth in the morningamoxicillin-clavulanate (Augmentin) 875-125 MG tablet Indications: Acute non-recurrent pansinusitisTake 1 tablet (875 mg) by mouth in the morning and 1 tablet (875 mg) in the evening. Do all this for 10 days. Take with food. 20 tablet 02/06/2025 02/18/2025 Discontinued (Therapy completed)Start: 02-06-2025 End: 94-11-4350lspj 1 tablet by mouth once in the morningamoxicillin-pot clavulanate (AUGMENTIN) 875-125 mg per tablet Take 1 tablet by mouth in the morningand 1 tablet before bedtime. 02/06/2025 02/16/2025 Activeatorvastatin 20 mg oral tablet (20 sources)HMG-CoA Reductase InhibitorStart: 19-02-7029Uygbhiotmuil Active MG PO August 02, 2024 12:00amStart: 07-17-2024 End: 26-82-5803Sphcalvqzngo 20 mg tablet Discontinued MG PO August 01, 2024 11:00pm July 27, 2025 11:02amStart: 55-10-5542nttt 1 tablet by mouth once dailyatorvastatin 40 mg Tab 40 mg = 1 tab(s), Oral, Daily, Refills(s) 0 Start Date: 12/09/23 Status: Ordered5 ml bupivacaine hydrochloride 5 mg/ml injection (8 sources)Amide Local AnestheticStart: 06-05-2025 End: 45-85-0760yhkvhvoelcr PF (Marcaine) 0.5 % injection 2 mLStart: 06-05-2025 End: mL, Injection, Once PRN Procedure, Starting on Wed06/05/25 at 0925, For 1 doseStart: 05-22-2025 End: 21-08-5286pfvdtxrhmgr PF (Marcaine) 0.5 % injection 2 mLStart: 05-22-2025 End: mL, Injection, Once PRN Procedure, Starting on Wed05/22/25 at 0911, For 1 dosecephalexin 500 mg oral capsule (8 sources)Cephalosporin AntibacterialStart: 08-02-2024 End: 63-90-9429gcbv 1 capsule by mouth twice dailyCephalexin 500 mg capsule Discontinued 500 MG PO Twice daily 14 7 0 August 01, 2024 11:00pm September 13, 2024 5:19pm1 ml erenumab-aooe 140 mg/ml auto-injector (20 sources)Start: 08-02-2024 End: 85-54-3067Mosrovbv-Aooe (Aimovig Autoinjector) 140 mg/mL auto-injector Discontinued MG SUBCUT August 01, 2024 11:00pm August 15, 2025 9:41am Start: 07-07-2024 End: 18-29-5899amtxhb 1 mL by subcutaneous injection onceerenumab (Aimovig) 140 MG/ML injection Indications: Migraine with aura, intractable, with status reba rainosus (CMS/HCC) Inject 1 mL (140 mg) under the skin every 28 (twenty-eight) days 1 each 3 09/18/2024 11/21/2024 Discontinued (Formulary change)Start: 71-00-4569CFNUABZ AUTOINJECTOR 140 mg/mL auto-injector 150 mg. 05/11/2024 Active Start: 86-31-9159tizfkl 70 mg by subcutaneous injection every monthAimovig SureClick 70 mg/mL subcutaneous solution 70 mg, SubCutaneous, qMonth, Refills(s) 0 Start Date: 12/09/23 Status: OrderedStart: 90-02-7988cunoay 1 dose by subcutaneous injection every 30 dayserenumab (Aimovig) 70 MG/ML injection Indications: Migraine with aura, intractable, with status migrainosus (CMS/HCC) 1 injection subcutaneous every 30 days 3 each 1 10/07/2023 Activegabapentin 300 mg oral capsule (3 sources)Anti-epileptic AgentStart: 03-22-2024 End: 01-83-0390lcog 1 capsule by mouth every twelve hoursgabapentin (Neurontin) 300 MG capsule Take 1 capsule by mouth every 12 (twelve) hours 03/22/2024 Discontinued (Other)meloxicam 15 mg oral tablet (20 sources)Nonsteroidal Anti-inflammatory DrugStart: 10-17-0040Lfawpsous Active MG PO August 02, 2024 12:00amStart: 01-22-2023 End: 80-71-3650Ubgthxuwd 15 mg tablet Discontinued MG PO August 01, 2024 11:00pm October 26, 2024 1:47pm1 ml methylPREDNISolone acetate 40 mg/ml injection (8 sources)CorticosteroidStart: 06-05-2025 End: 76-42-8682iqptysGDULEXJtemnu acetate (DEPO-Medrol) injection 40 mgStart: 06-05-2025 End: 22-11-046062 mg, Intra-articular, Once PRN Procedure, Starting on Wed06/05/25 at 0925, For 1 doseStart: 05-22-2025 End: 33-34-0705qblrmoRUPJDHNjcjuk Acetate (DEPO-Medrol) injection 40 mgStart: 05-22-2025 End: 51-57-120604 mg, Intra-articular, Once PRN Procedure, Starting on Wed05/22/25 at 0911, For 1 dosemupirocin 0.02 mg/mg topical ointment (18 sources)RNA Synthetase Inhibitor AntibacterialStart: 05-17-2024 End: 23-71-8157dxgzhvpys (Bactroban) 2 % ointment Indications: Chronic rhinitis Apply to each side of the nose twice daily 3 weeks 15 g 1 05/17/2024 08/14/2024 Discontinuedverapamil hydrochloride 120 mg extended release oral tablet (20 sources)Calcium Channel BlockerStart: 08-02-2024 End: 36-48-5584Edmimhvkf 120 mg tablet extended release Discontinued MG PO August 01, 2024 11:00pm October 26, 2024 1:47pmStart: 38-03-3607Etsruswns Active MG PO August 02, 2024 12:00amStart: 54-51-4605srtr 1 capsule by mouth once dailyverapamil 120 [...] [Persons encountering health services in other specified circumstances]37-35-7091GuktebhkVkcxsir- related disorders (20 sources)Alcohol abuse; Translations: [Alcohol abuse, uncomplicated]Onset: 278654-27-7135EikebpeQvjkzlu disorders (20 sources)Anxiety; Translations: [Anxiety disorder, unspecified]Onset: 458874-84-3946XdzoathMvtezx (20 sources)Unspecified asthma, uncomplicated; Translations: [Asthma]Onset: 07-14-2010 Resolved: 319206-48-3180EbnbvojWcahvbmihv associated with dizziness or vertigo (20 sources)Vertigo; Translations: [Dizziness and giddiness]Onset: 07-14-2010 23-79-8916DcddtfnxAxrhzbnk atherosclerosis and other heart disease (20 sources)Coronary arteriosclerosis; Translations: [Atherosclerotic heart disease of [place] coronary artery without angina pectoris]Onset: 02-03-2023 25-96-8191EafyuswDthnwnuvp of lipid metabolism (20 sources)Pure hypercholesterolemia, unspecified; Translations: [Hypercholesterolemia]Onset: 07-14-2010 Resolved: 722950-57-4747IbobgyeRmjbbbit; convulsions (20 sources)Seizure; Translations: [Unspecified convulsions]Onset: 06-29-2019 60-09-5529GshahjkwVswgokdzoh disorders (20 sources)Gastroesophageal reflux disease; Translations: [Gastro-esophageal reflux disease without esophagitis]Onset: 140991-23-3924ZenydmuWnlyffivw hypertension (20 sources)Essential (primary) hypertension; Translations: [Essential hypertension]Onset: 860004-20-5858ScdpqvlQcugf and electrolyte disorders (3 sources)Hypokalemia; Translations: [Hypokalemia]Onset: EpisodicGenitourinary symptoms and ill-defined conditions (1 source)Dysuria; Translations: [Dysuria]Onset: 40-72-6777ZwnzzorzHgevjgsp; including migraine (20 sources)Migraine; Translations: [Refractory migraine with aura]Onset: 909054-89-5140KsascqzGwanjczmzmfd injury (5 sources)Concussion injury of body structure; Translations: [Concussion]Onset: 733202-04-5095QgzkjtngXjqbuqmjnhddn mental health disorders (20 sources)Psychophysiologic insomnia; Translations: [Psychophysiologic insomnia]Onset: 824442-36-3879YbfrheiNifz disorders (20 sources)Major depressive disorder, single episode, unspecified; Translations: [Depressive disorder]Onset: 08-14-2010 Resolved: 048829-77-4323SrdevdaUdyhmz and vomiting (4 sources)Nausea with vomiting, unspecified; Translations: [Vomiting]Onset: 653908-90-1690YraxwxowVhjgdwpsdeshtx (20 sources)Osteoarthritis of right knee joint; Translations: [Unilateral primary osteoarthritis, right knee]Onset: 272055-58-8290HdpuzfnGdrhw and unspecified benign neoplasm (20 sources)Benign neoplasm of brain; 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, unspecified]Onset: 769819-55-2586FsgeatiEcmqo connective tissue disease (12 sources)Spasm of cervical paraspinous muscle; Translations: [Other muscle spasm]Onset: 636829-31-3958DkpjgrmrQnyze connective tissue disease (1 source)Myalgia, unspecified site; Translations: [Myalgia and myositis, unspecified]84-63-4971EtclsvgnGfruo gastrointestinal disorders (1 source)Diarrhea, unspecified; Translations: [Diarrhea, unspecified]Onset: 87-30-4420QagnezvpBgvtc gastrointestinal disorders (2 sources)Diarrhea; Translations: [Diarrhea, unspecified]61-65-1732Vplfscxa Other hereditary and degenerative nervous system conditions (1 source)Restless legs syndrome; Translations: [RESTLESS LEGS SYNDROME]Onset: 30-57-9027BazowduVqfvk hereditary and degenerative nervous system conditions (20 sources)Restless legs; Translations: [Restless legs syndrome]Onset: 249973-55-3423NucptcjXwqqb injuries and conditions due to external causes (1 source)Unspecified injury of head, initial encounter; Translations: [Unspecified injury of head, initial encounter]Onset: 47-47-5024YxkoztwsUhhkp injuries and conditions due to external causes (1 source)Injury of headOnset: 58-45-0614YdgsnncuEboso lower respiratory disease (5 sources)Shortness of breath; Translations: [SHORTNESS OF BREATH]Onset: 22-69-5370QxbzofhgHifbs lower respiratory disease (6 sources)Dyspnea; Translations: [Shortness of breath]36-52-1568KqcftdwqGhcls nervous system disorders (20 sources)Carpal tunnel syndrome; Translations: [Carpal tunnel syndrome, unspecified upper limb]Onset: 392835-80-4413TdfsgriXhayv nervous system disorders (20 sources)Chronic pain; Translations: [Other chronic pain]Onset: 02-03-2023 78-75-1955FeqkuivVlhga nervous system disorders (1 source)Chronic pain syndrome; Translations: [Chronic pain syndrome]10-02-2024 ChronicOther non-traumatic joint disorders (6 sources)Pain in right shoulder; Translations: [Pain in joint, shoulder region]03-30-0831FxycdfucIdisn non-traumatic joint disorders (2 sources)Disorder of shoulder; Translations: [Other specified joint disorders, right shoulder]37-50-6048RdriixssObtdj non-traumatic joint disorders (2 sources)Pain in left shoulder; Translations: [Pain in joint, shoulder region] 42-34-5435OyflzyqfZpaoj nutritional; endocrine; and metabolic disorders (1 source)Body mass index 30+ - aqfpudj47-23-1286EmubqkcVujwc nutritional; endocrine; and metabolic disorders (1 source)Tkcrogv88-81-6122UuhcfebWuqyk screening for suspected conditions (not mental disorders or infectious disease) (20 sources)Screening for malignant neoplasm of colon done; Translations: [Encounter for screening for malignant neoplasm of colon]Onset: 02-01-2024 EpisodicOther upper respiratory disease (20 sources)Chronic rhinitis; Translations: [Chronic rhinitis]Onset: 05-17-2024 81-82-8077VlhyltmBmexd upper respiratory disease (20 sources)Nasal vestibulitis; Translations: [Other specified disorders of nose and nasal sinuses]Onset: 655398-37-1408FyidbznjMxmbf upper respiratory disease (1 source)Epistaxis; Translations: [Epistaxis]86-52-2359VuwmckwrBvkdx upper respiratory infections (20 sources)Viral upper respiratory tract infection; Translations: [Acute upper respiratory infection, unspecified]Onset: 609049-67-8733EqhbkmutDhrkzwxc codes; unclassified (20 sources)Obstructive sleep apnea syndrome; Translations: [Obstructive sleep apnea (adult) (pediatric)]Onset: 636795-97-3486OootdqoXdhiwazq codes; unclassified (1 source)Family history of malignant neoplasm of digestive organ; Translations: [Family history of malignantneoplasm of digestive organs]Onset: 02-01-2024 EpisodicResidual codes; unclassified (1 source)Family history of cancer of uimtu94-76-9013VweghokmElgttoko codes; unclassified (1 source)Tlnndtml17-12-5722CfztgyxhJdjfomcvdha; intervertebral disc disorders; other back problems (20 sources)Cervical spondylosis without myelopathy; Translations: [Spondylosis without myelopathy or radiculopathy, cervical region]Onset: ChronicSpondylosis; intervertebral disc disorders; other back problems (20 sources)Cervico-occipital neuralgia; Translations: [Occipital neuralgia] Onset: 109149-64-2340CczkzraoJovjynbrgrf injury; contusion (3 sources)Contusion of scalp, initial encounter; Translations: [Contusion of right foot]Onset: 794912-14-9194LhfpggzuMxbgfuf disorders (20 sources)Hypothyroidism, unspecified; Translations: [Hypothyroidism]Onset: 084596-62-6701KungbafQbyqsiuflcxi (1 source)CONTACT W/AND (SUSP) EXPOS COVID-19; Translations: [CONTACT W/AND (SUSP) EXPOS COVID-19]Onset: 42-87-0967Zhqsnmzrkgfq (1 source)Patient encounter iczyeo57-41-0714Hpbkkntqmctg (2 sources)Acute pain of right -64-8457Zprqbqpmbiyf (2 sources)Arthritis of right egpzywnd72-05-3542Leyibfvqtcpz (2 sources)Arthritis of left eeabmxhf24-54-3989Fvegbmf tract infections (20 sources)Urinary tract infectious disease; Translations: [Urinary tract infection, site not specified]Onset: 324677-05-7678Kbtfgsjn Past or Other Problems Problem ClassificationProblemDateDocumented DateEpisodic/ChronicBacterial infection; unspecified site (20 sources)Methicillin resistant Staphylococcus aureus infection; Translations: [Methicillin resistant Staphylococcus aureus infection, unspecified site]Onset: 519162-50-9422HcdsvkvmIbtqqagvqd and other anemia (20 sources)Anemia; Translations: [Anemia, unspecified]Onset: 01-09-2025 59-18-5585GpzbzgtuLhrr disorders (8 sources)Mood disordersOnset: 313094-80-3953Iigcqzfye of unspecified nature or uncertain behavior (20 sources)Giant cell tumor of bone; Translations: [Neoplasm of uncertain behavior of bone and articular cartilage]Onset: 431029-39-9716Gnbfxykt Other aftercare (1 source)Other long-term (current) drug therapy; Translations: [OTH RN ENDOSCOPY CURRENT DRUG THERAPY]Onset: 74-46-3619XttcfqdwJniwt connective tissue disease (20 sources)Neurological deficit; Translations: [Other symptoms and signs involving the nervous system]Onset: 607885-13-1347OfbxtvgkMdpfj skin disorders (3 sources)Localized swelling, mass and lump, head; Translations: [LOCALIZED SWELLING MASS AND LUMP HEAD]Onset: 96-93-0338LgvirojxNuypc upper respiratory disease (20 sources)Rhinitis; Translations: [Chronic rhinitis]Onset: 01-09-2025 Resolved: 755414-64-3444KjgmtyjHosna upper respiratory disease (1 source)Abscess, furuncle and carbuncle of nose; Translations: [ABSCESS FURUNCLE AND CARBUNCLE NOSE]Onset: 47-74-3463JfeflvupXyeyxnwb codes; unclassified (20 sources)Family history of aneurysm of artery; Translations: [Family history of ischemic heart disease and other diseases of the circulatory system]Onset: 742741-64-1398MokslyysWlakolcs codes; unclassified (20 sources)Altered mental status; Translations: [Altered mental status, unspecified]Onset: 406609-83-6644ExvguoqcMjcckrqr codes; unclassified (20 sources)Inadequate sleep hygiene; Translations: [Inadequate sleep hygiene] Onset: 100700-66-2087IvfpvoxwPmiarscbvpzu (1 source)Recurrent otkxjboop34-04-2893Gurlnagncrli (8 sources)Onset: 078779-03-4148 Results Test NameValueInterpretationReference RangeFacilityBASIC METABOLIC PANELon 90-17-8916Rknkb gap [Moles/Vol]9 mmol/LNormal5-15[facility] Comment on above:Performed By: #### BMP #### [facility] ([facility]) [address] [place] [address] [place] [address] VIRCalcium [Mass/Vol]9.1 mg/dLNormal8.5-10.5ProMedCHoNC Pediatric HospitalComment on above:Performed By: #### BMP #### [facility] ([address] [place] [address] VIRChloride [Moles/Vol]114 mmol/DRlcn61-666QtvKyltidMethodist Hospital NortheastComment on above:Performed By: #### BMP #### [facility] ([address] [address] VIRCO2 [Moles/Vol]17 mmol/HKow87-79EliRicrxoSalem Regional Medical Center Comment on above:Performed By: #### BMP #### [facility] ([address] [address] VIRCreatinine [Mass/Vol]0.82 mg/dLNormal0.40-1.00ProMethodist Hospital NortheastComment on above:Result Comment: METHOD TRACEABLE TO IDMS STANDARDPerformed By: #### BMP #### [facility] ([address] [address] VIRGFR/1.73 sq M.predicted among non-blacks MDRD (S/P/Bld) [Vol rate/Area]81 mL/min/{1.73_m2}Normal>=60ProMethodist Hospital NortheastComment on above:Result Comment: eGFR not reported due to non-numeric value for Creatinine. Reported eGFR is based on the CKD-EPI 2021 equation that does not use a race coefficient.Performed By: #### BMP #### [facility] ([address] [address] VIRGlucose [Mass/Vol]121 mg/zYXoct83-69KupAogrduMethodist Hospital NortheastComment on above:Performed By: #### BMP #### [facility] ([address] [address] VIRPotassium [Moles/Vol]3.0 mmol/LLow3.5-5.0ProMethodist Hospital NortheastComment on above:Performed By: #### BMP #### [facility] ([address] [address] VIRSodium [Moles/Vol]140 mmol/WXhkhre218-485HfuVntqyp [facility] HospitalComment on above:Performed By: #### BMP #### [facility] ([facility]) [address] [place] [address] VIRUrea nitrogen [Mass/Vol]17 mg/dLNormal5-ProMethodist Hospital NortheastComment on above:Performed By: #### BMP #### [facility] ([facility]) [address] [facility] [facility] [place] [address] VIRC DIFFICILE BY PCRon [id number] YKX6PovqvmuzCzveyd Presumptive NegativeKettering HealthComment on above:Result Comment: Assay methodology is nucleic acid amplification by real-time PCR for detection of C. difficile toxin gene sequences performed on [employer] Instrument System.Performed By: #### CDFPCR #### [facility] ([facility]) [address] [place] [address] VIRTOXIGENIC C DIFFNegativeNormalNegativeKettering HealthComment on above:Performed By: #### CDFPCR #### [facility] ([facility]) [address] [place] [address] VIRCBC WITH AUTO DIFFERENTIALon 78-92-6702BGHIRDUBR ABSOLUTE COUNT (10*3/UL) BY AUTOMATED COUNT0.0 10*3/uLNormal0.0-0.2Pro[facility] Medical CenterComment on above:Performed By: #### CBCA #### [facility] ([facility]) [address] [facility] [place] [address] VIRBASOPHILS RELATIVE PERCENT BY AUTOMATED COUNT0.2 %Normal [facility] HealthComment on above:Performed By: #### CBCA #### [facility] ([facility]) [address] [facility] [place] [address] VIRCELLAVISION DIFFERENTIAL TYPEAUTOMATED DIFFERENTIALNormal [facility] HealthComment on above:Performed By: #### CBCA #### [facility] ([facility]) [address] [place] [address] VIREosinophils (Bld) [#/Vol]0.4 10*3/uLNormal0.0-0.4[facility] HealthComment on above:Performed By: #### CBCA #### [facility] ([address] [place] [address] VIREOSINOPHILS RELATIVE PERCENT BY AUTOMATED COUNT4.0 %Normal [facility] HealthComment on above:Performed By: #### CBCA #### [facility] ([address] [place] [address] VIRErythrocyte distribution width (RBC) [Ratio]13.1 %Normal 11.5-15[facility] HealthComment on above:Performed By: #### CBCA #### [facility] ([address] [place] [address] VIRHematocrit (Bld) [Volume fraction]38.7 %Lqajur23-83 [facility] HealthComment on above:Performed By: #### CBCA #### [facility] ([address] [place] [address] VIRHemoglobin (Bld) [Mass/Vol]13.0 g/yAOttrmw27.7-15.5 [facility] HealthComment on above:Performed By: #### CBCA #### [facility] ([address] [place] [address] VIRLYMPHOCYTES ABSOLUTE COUNT (10*3/UL) BY AUTOMATED COUNT1.5 10*3/uLNormal1.0-3.5PSalem Regional Medical CenterComment on above:Performed By: #### CBCA #### [facility] ([address] [place] [address] VIRLYMPHOCYTES RELATIVE PERCENT BY AUTOMATED COUNT14.0 %Normal [facility] HealthComment on above:Performed By: #### CBCA #### [facility] ([address] [place] [address] VIRMCH (RBC) [Entitic mass]31.3 uqHpdwxg35-97NjbCpryluMethodist Hospital NortheastComment on above:Performed By: #### CBCA #### [facility] ([address] [place] [address] VIRMCHC (RBC) [Mass/Vol]33.7 g/uMDdelxu71-68VthRzolbmMethodist Hospital NortheastComment on above:Performed By: #### CBCA #### [facility] ([address] [place] [address] VIRMCV (RBC) [Entitic vol]93 rEPeqmjw92-839ZoyFfsjnh [facility] HospitalComment on above:Performed By: #### CBCA #### [facility] ([address] [place] [address] VIRMONOCYTES ABSOLUTE COUNT (10*3/UL) BY AUTOMATED COUNT0.8 10*3/uLNormal0.0-0.9[facility] HealthComment on above:Performed By: #### CBCA #### [facility] ([facility]) [address] [place] [address] [place] [address] VIRMONOCYTES RELATIVE PERCENT BY AUTOMATED COUNT7.2 %Normal [facility] HealthComun[facility] of [facility] on above:Performed By: #### CBCA #### [facility] ([address] [place] [address] VIRNEUTROPHILS ABSOLUTE COUNT BY AUTOMATED COUNT7.9 10*3/uL High1.5-6.6ProMethodist Hospital NortheastComment on above:Performed By: #### CBCA #### [facility] ([address] [place] [address] VIRNEUTROPHILS RELATIVE PERCENT BY AUTOMATED COUNT74.6 %Normal [facility] HealthComment on above:Performed By: #### CBCA #### [facility] ([facility]) [address] [place] [address] [place] [address] VIRPlatelet mean volume (Bld) [Entitic vol]7.1 fLNormal7-12 [facility] HealthComment on above:Performed By: #### CBCA #### [facility] ([address] [place] [address] VIRPlatelets (Bld) [#/Vol]318 10*3/mSWcwzhl477-864OnkTyheiu [facility] HospitalComment on above:Performed By: #### CBCA #### [facility] ([address] [place] [address] VIRRBC COUNT4.17 X10E12/LNormal3.8-5.2Pro[facility] Hospital Medical CenterComment on above:Performed By: #### CBCA #### [facility] ([address] [place] [address] VIRWBC (Bld) [#/Vol]10.6 10*3/uLNormal4-11[facility] HealthComment on above:Performed By: #### CBCA #### [facility] ([facility]) [address] [place] [address] [place] [address] VIRER EXTRA URINE CULTUREon [id number] EXTRA URINE CULTURE ERXUC ER EXTRA URINE CULTURE [facility] - [facility] NorthComment on above:Order Comment: NO TUBEER EXTRA URINE MARBLEon [id number] EXTRA URINE MARBLEERXMAR ER EXTRA URINE MARBLE CancellOhio State University [facility] Comment on above:Order Comment: NO TUBEGI PANEL STOOL PATHOGEN PANELon 76-95-2389UWJVWEZWLSBhi detectedNormalNot DetectedKettering Health Comment on above:Performed By: #### GIP #### [facility] ([facility]) [address] [place] [address] VIRAGGREGATIVE E COLINot detectedNormalNot DetectedProMethodist Hospital NortheastComment on above:Performed By: #### GIP #### [facility] ([facility]) [address] [place] [address] VIRASTROVIRUSNot detectedNormalNot DetectedProMethodist Hospital NortheastComment on above:Performed By: #### GIP #### [facility] ([facility]) [address] [place] [address] VIRCAMPYLOBACTERNot detectedNormalNot DetectedProMethodist Hospital NortheastComment on above:Performed By: #### GIP #### [facility] ([facility]) [address] [place] [address] VIRCRYPTOSPORIDIUMNot detectedNormalNot DetectedKettering HealthComuniversity of michigan health on above:Performed By: #### GIP #### [facility] ([facility]) [address] [place] [address] VIRCYCLOSPORANot detectedNormalNot DetectedKettering HealthComment on above:Performed By: #### GIP #### [facility] ([facility]) [address] [place] [address] VIRE HISTOLYTICANot detectedNormalNot DetectedKettering HealthComuniversity of michigan health on above:Performed By: #### GIP #### [facility] ([facility]) [address] [place] [address] VIRGIARDIA LAMBLIANot detectedNormalNot DetectedProMethodist Hospital NortheastComment on above:Performed By: #### GIP #### [facility] ([facility]) [address] [place] [address] VIRNOROVIRUSNot detectedNormalNot DetectedKettering HealthComuniversity of michigan health on above:Performed By: #### GIP #### [facility] ([facility]) [address] [place] [address] VIRPATHOGENIC E COLINot detectedNormalNot DetectedProMethodist Hospital NortheastComment on above:Performed By: #### GIP #### [facility] ([facility]) [address] [place] [address] VIRPLESIOMONASNot detectedNormalNot DetectedProKing'S Daughters Medical Center Ohio HospitalComment on above:Performed By: #### GIP #### [facility] ([facility]) [address] [place] [address] VIRROTAVIRUS ANot detectedNormalNot DetectedProKing'S Daughters Medical Center Ohio HospitalComment on above:Performed By: #### GIP #### [facility] ([facility]) [address] [place] [address] VIRSALMONELLANot detectedNormalNot DetectedProMethodist Hospital NortheastComment on above:Performed By: #### GIP #### [facility] ([facility]) [address] [place] [address] VIRSAPOVIRUSNot detectedNormalNot DetectedProKing'S Daughters Medical Center [place] HospitalComment on above:Performed By: #### GIP #### [facility] ([facility]) [address] [place] [address] VIRSHIGA TOXIN E COLINot detectedNormalNot DetectedProMethodist Hospital NortheastComment on above:Performed By: #### GIP #### [facility] ([facility]) [address] [place] [address] VIRSHIGELLA-E COLINot detectedNormalNot DetectedProKing'S Daughters Medical Center [place] HospitalComment on above:Performed By: #### GIP #### [facility] ([facility]) [address] [place] [address] VIRTOXIGENIC E COLINot detectedNormalNot DetectedProKing'S Daughters Medical Center [place] HospitalComment on above:Performed By: #### GIP #### [facility] ([facility]) [address] [place] [address] VIRVIBRIONot detectedNormalNot DetectedProKing'S Daughters Medical Center [place] HospitalComment on above:Performed By: #### GIP #### [facility] ([facility]) [address] [place] [address] VIRVIBRIO CHOLERAENot detectedNormalNot DetectedProMethodist Hospital NortheastComment on above:Performed By: #### GIP #### [facility] ([facility]) [address] [place] [address] SAMY. ENTEROCOLITICANot detectedNormalNot DetectedProMethodist Hospital NortheastComment on above:Performed By: #### GIP #### [facility] ([facility]) [address] [place] [address] VIRLIPASEon 12-02-8994Ekrspb [Catalytic activity/Vol]37 U/L Jcyiwc48-40QtbOqexqzMethodist Hospital NortheastComment on above:Performed By: #### LIPA #### [facility] ([address] [place] [address] VIRLIVER PANELon 67-68-3947Qoiwibq [Mass/Vol]4.5 g/dLNormal 3.2-5.3PSalem Regional Medical CenterComment on above:Performed By: #### LIVR #### [facility] ([address] [place] [address] VIRALP [Catalytic activity/Vol]54 U/BQqwjmo04-901UklUwhddoMethodist Hospital NortheastComment on above:Performed By: #### LIVR #### [facility] ([address] [place] [address] VIRALT [Catalytic activity/Vol]17 U/LNormal<=31ProMedCHoNC Pediatric HospitalComment on above:Performed By: #### LIVR #### [facility] ([address] [place] [address] VIRAST [Catalytic activity/Vol]21 U/LNormal<=41ProMethodist Hospital NortheastComment on above:Performed By: #### LIVR #### [facility] ([address] [place] [address] VIRBilirubin [Mass/Vol]0.4 mg/dLNormal0.3-1.2ProMedCHoNC Pediatric HospitalComment on above:Performed By: #### LIVR #### [facility] ([address] [place] [address] VIRBilirubin.indirect [Mass/Vol]0.1 mg/dLNormal<=0.4ProMethodist Hospital NortheastComment on above:Performed By: #### LIVR #### [facility] ([address] [place] [address] VIRProtein [Mass/Vol]7.7 g/dLNormal6.0-8.0ProMethodist Hospital NortheastComment on above:Performed By: #### LIVR #### [facility] ([address] [place] [address] VIRPOCT NURSING URINE MACROSCOPIC UAon 05-14-1629PKKXOSCWI ZACHARY NegativeNormalNegativeKettering HealthComment on above:Performed By: #### NUM #### [facility] ([address] [place] [address] VIRBLOOD/HGB NURNegativeNormalNegativeKettering HealthComment on above:Performed By: #### NUM #### [facility] ([address] [place] [address] VIRGLUCOSE NURNegativeNormalNegativeKettering Health Comment on above:Performed By: #### NUM #### [facility] ([address] [address] VIRKETONES NURNegativeNosampson regional medical centerNegativeK[facility] Health Comment on above:Performed By: #### NUM #### [facility] ([address] [place] [address] VIRLEUKOCYTE ESTERASE NURTraceAbnormalNegativeKettering HealthComment on above:Performed By: #### NUM #### [facility] ([address] [address] VIRNITRITE NURNegativeNosampson regional medical centerNegSycamore Medical Center Comment on above:Performed By: #### NUM #### [facility] ([address] [place] [address] VIRPH NUR6.2Ubuwic2.0, 6.0, 6.5, 7.0, 7.5, 8.0, 8.5, 5.5 [facility] HealthComment on above:Performed By: #### NUM #### [address] [address] VIRPROTEIN NURTraceAbnormalNegativeKettering Health Comment on above:Performed By: #### NUM #### [facility] ([address] [address] VIRSPECIFIC GRAVITY ZACHARY>=1.282Puaxnywd4.010, 1.015, 1.020, 1.025K[facility]tering HealthComment on above:Performed By: #### NUM #### [address] [address] VIRUROBILINOGEN NUR0.2 E.U./dLNormKettering Memorial Hospital Comment on above:Performed By: #### NUM #### [address] [address] VIRCT BRAIN WO CONTon [id number] BRAIN WO CONTCT BRAIN WO CONT Exam: [...] by Mor Correia MD on 06/19/2025 12:22 PMNKettering Health Preble Panel Informationon [id number] Bonilla 06/05/2025 9:35 AM L Inj/Asp: L [...] neurovascular intact s/p injection. . ( Codes 54247) Procedure, treatment alternatives, risks and benefits explained, specific risks discussed. Consent was given by the patient. Patient was prepped and draped in the usual sterile fashion. Critical access hospitalXR Shoulder - left 2 Viewson [id number] Result: Left Shoulder AP and Scap Y No acute fracture or dislocation Bone Structures clavicle and scapula and humeral head appear normal alignment Glenohumeral joint space narrowed with subchondral sclerosis and spurring to humeral head. Suspect calcific tendonitis cuff insertion Moderate degenerative changes of ac joint Soft tissues and limited visualized lung cisneros unremarkable Impression: left shoulder arthritis with calcific tendonitis. Critical access hospitalRadiology Study observation (narrative)[facility] Panel Informationon [id number] Bonilla 05/22/2025 9:22 AM L Inj/Asp: R [...] neurovascular intact s/p injection. . ( Codes 37419-TL) Procedure, treatment alternatives, risks and benefits explained, specific risks discussed. Consent was given by the patient. Patient was prepped and draped in the usual sterile fashion. Critical access hospitalXR Shoulder - right 2 Viewson [id number] Result: AP and Scapy Y right shoulder No acute fracture or dislocation + Subchondral cystic changes to glenoid and inferior daly spurring to humeral head. AC joint appears bone to bone with spurring Impression: Moderate arthritis to AC joint and right glenohumeral joint.Critical access hospitalRadiology Study observation (narrative)[facility] XR CERVICAL SPINE COMPLETE 4-5 VIEWSon [id number] CERVICAL SPINE COMPLETE 4-5 VIEWSExam: XR CERVICAL [...] by the interpreting Radiologist.NormalNot AvailableXR chest 2V*on 65-17-5325JX chest 2V*[facility] [place] [address] XRay Report Signed Patient: Autumn Brandt MR#: [id number] : 1965 Acct:[id number] Age/Sex: 58 / F ADM Date: 09/13/24 Loc: XDUCLY Room: Type: [facility] Attending Dr: Sonia Miller APRN Copies to: [...] Quinten Campa M.D.09/13/2024 6:18 PM Dictation Location: [place] [address] Transcribed By: [facility] 09/13/241817 Dictated By: Quinten Campa II, MD 09/13/241816 Signed By: 09/13/241817[facility] W Auto Differential panel (Bld)on 21-74-6024Ejveoouss (Bld) [#/Vol]72 10*3/uLNOMS HealthcareBasophils/100 WBC (Bld)1.3 %[facility]OMS HealthcareEosinophils (Bld) [#/Vol]220 10*3/uLNOMS Healthcare Eosinophils/100 WBC (Bld)4 %NOMS HealthcareErythrocyte distribution width (RBC) [Ratio]12 %11.0 - 15.0 %[facility]OM[facility] HealthcareHematocrit (Bld) [Volume fraction]33.4 % Low35.0 - 45.0 %[facility] HealthcareHemoglobin (Bld) [Mass/Vol]10.8 g/dLLow11.7 - 15.5 g/dLNOMS HealthcareLymphocytes (Bld) [#/Vol]1408 10*3/uLNOMS Healthcare Lymphocytes/100 WBC (Bld)25.6 %[facility] WashingtonMCH (RBC) [Entitic mass]31.5 pg 27.0 - 33.0 pgMercy Hospital WashingtonMCHC (RBC) [Mass/Vol]32.3 g/dL32.0 - 36.0 g/dLNOIL HealthcareComment on above:For adults, a slight decrease in the calculated MCHC value (in the range of 30 to 32 g/dL) is most likely not clinically significant; however, it should be interpreted with caution in correlation with other red cell parameters and the patient's clinical condition. MCV (RBC) [Entitic vol]97.4 fL80.0 - 100.0 fL[facility] HealthcareMonocytes (Bld) [#/Vol]369 10*3/u[facility] HealthcareMonocytes/100 WBC (Bld)6.7 %[facility] Neutrophils (Bld) [#/Vol]3432 10*3/uLNOIL HealthcareNeutrophils/100 WBC (Bld) 62.4 %[facility] HealthcarePlatelet mean volume (Bld) [Entitic vol]9.2 fL7.5 - 12.5 fL [facility] HealthcarePlatelets (Bld) [#/Vol]289 10*3/uLNOIL HealthcareRBC (Bld) [#/Vol]3.43 10*6/uLLowNOIL HealthcareWBC (Bld) [#/Vol]5.5 10*3/uLNOIL Healthcare Laboratory - Chemistry and Chemistry - challengeon 31-87-3250Upsehwr [Mass/Vol] 4.4 g/dL3.6 - 5.1 g/dLNOIL HealthcareAlbumin/Globulin [Mass ratio]2 {ratio}[facility] HealthcareALP [Catalytic activity/Vol]56 U/L37 - 153 U/LNOMS HealthcareALT [Catalytic activity/Vol]12 U/L6 - 29 U/LNOMS HealthcareAST [Catalytic activity/Vol]17 U/L10 - 35 U/LNOMS HealthcareBilirubin [Mass/Vol]0.3 mg/dL0.2 - 1.2 mg/dLNOIL HealthcareCalcium [Mass/Vol]9.1 mg/dL8.6 - 10.4 mg/dLNOIL HealthcareChloride [Moles/Vol]112 mmol/LHigh98 - 110 mmol/LNOMS HealthcareCO2 [Moles/Vol]25 mmol/L20 - 32 mmol/LNOMS HealthcareCreatinine [Mass/Vol]0.63 mg/dL 0.50 - 1.05 mg/dLNOIL HealthcareFree T4 [Mass/Vol]0.9 ng/dL0.8 - 1.8 ng/dLNOIL HealthcareGFR/1.73 sq M.predicted among non-blacks MDRD (S/P/Bld) [Vol rate/Area]101 mL/min/{1.73_m2}> OR = 60 mL/min/1.26z7YPBX HealthcareGlobulin (S) [Mass/Vol]2.2 g/dLNOIL HealthcareGlucose [Mass/Vol]88 mg/dL65 - 99 mg/dLNOIL HealthcareComment on above: Fasting reference interval Potassium [Moles/Vol]4.1 mmol/L3.5 - 5.3 mmol/LNOMS HealthcareProtein [Mass/Vol] 6.6 g/dL6.1 - 8.1 g/dLNOIL HealthcareSodium [Moles/Vol]142 mmol/L135 - 146 mmol/LNOMS HealthcareTSH Qn0.02 m[IU]/LLowNOMS HealthcareUrea nitrogen [Mass/Vol]19 mg/dL7 - 25 mg/dLNOIL HealthcareUrea nitrogen/Creatinine [Mass ratio]SEE NOTE:[facility] HealthcareComment on above:Not Reported: BUN and Creatinine are within reference range. Lipid 1996 panelon 01-71-8954Rrtnpamaozl [Mass/Vol]174 mg/dLNINF - 200 mg/dLNOIL HealthcareCholesterol in HDL [Mass/Vol]56 mg/dL> OR = 50NOCox [place] Cholesterol in LDL [Mass/Vol]97 mg/dLmg/dL (calc)[facility] HealthcareComment on above:Reference range: <100 Desirable range <100 mg/dL for primary prevention; <70 mg/dL for patients with CHD or diabetic patients with > or = 2 CHD risk factors. LDL-C is now calculated using the Virgen calculation, which is a validated novel method providing better accuracy than the Friedewald equation in the estimation of LDL-C. Adis CABEZAS et al. DEIDRE. 2013;310(19): 6975-2120 (http://education.Realeyes.CompanyLoop/faq/ODO007) Cholesterol non HDL [Mass/Vol]118 mg/dLDr. Fred Stone, Sr. HospitalComment on above:For patients with diabetes plus 1 major ASCVD risk factor, treating to a non-HDL-C goal of <100 mg/dL (LDL-C of <70 mg/dL) is considered a therapeutic option. Cholesterol.total/Cholesterol in HDL [Mass ratio]3.1 {ratio}[facility] Triglyceride [Mass/Vol]117 mg/dLNI - 150 mg/dLMercy Hospital WashingtonNo Panel Informationon 38-69-7120Rprktoiqyblttu and review of laboratory resultsAbnormal [facility] WashingtonFASTING:YES FASTING: YESQUESTPerforming Organization Information Site ID: QPT Name: [employer] - [employer]urrence Backoffice [facility] Address: [address] [place] [address], [address] [place] [id number] Director: Jeferson Clark MDCritical access hospitalLaboratory - Chemistry and Chemistry - challengeon 19-45-7466Kdpgipvty Ql (U)[facility] HospitalGlucose (U) [Mass/Vol]NegativeAvita Health System Ketones Ql (U)[facility] Memorial HospitalpH (U)7.0 [pH][facility] Private Hospitalpecific gravity (U) [Rel density]1.015Avita Health SystemUrobilinogen (U) [Mass/Vol]0.2 mg/dLAvita Health SystemLaboratory - Specimen informationon 94-44-3623Gicjmfytmx (U)cloudy [facility]ita Health SystemColor (U)paleyellowAvita Health SystemLaboratory - Urinalysison 84-78-4298Oxjdbhfrl esterase Test strip Ql (U) traceAvita Health SystemNitrite Ql (U)[facility] HospitalProtein Ql (U)NegativeAvita Health SystemNo Panel Informationon 19-92-5361Ynnno Occult Bloodtrace-lysedAvita Health SystemUrine Cultureon 15-06-1837Rujnyjpr identified Cx Nom (U)<10,000 colonies/ml mixed bacterial skin contaminants including mixed gram negative bacilli - 2 Days PERFORMED BY: [place] [address] [place] [address] PATHOLOGIST DELIVERY DRIVER VENANCIO FU M.D.[facility] Physician GroupComment on above:Performed By: #### CUU #### [facility] [address] StreetUrine cultureOrdered By: Sonia Miller on 14-93-6373Cwmfvwtr identified Cx Nom (U)Urine cultureAvita Health SystemCB W Auto Differential panel (Bld)on 83-40-8330JQHSVTQL BASOPHIL0.1NOMS HealthcareComment on above:PERFORMED AT [facility] [address],[place] [address] The copy-to physician of this order is SHIRA Burrows ; , ; Basophils/100 WBC (Bld)1.3 %[facility]OM[facility] HealthcareEosinophils (Bld) [#/Vol]0.2 10*3/uL [facility] HealthcareEosinophils/100 WBC (Bld)3.7 %[facility]OMS HealthcareErythrocyte distribution width (RBC) [Ratio]13.2 %11.5 - 15.0 %[facility]S HealthcareHematocrit (Bld) [Volume fraction]34.4 %Low35 - 47 %[facility]S HealthcareHemoglobin (Bld) [Mass/Vol]11.9 g/dL11.7 - 15.5 g/dLNOIL HealthcareInterpretation and review of laboratory resultsAbnormalNOIL HealthcareLymphocytes (Bld) [#/Vol]1.5 10*3/uL [facility] HealthcareLymphocytes/100 WBC (Bld)26.8 %[facility]S HealthcareMCH (RBC) [Entitic mass]32.4 pg27 - 34 pgNOIL HealthcareMCHC (RBC) [Mass/Vol]34.6 g/dL32 - 36 g/dL NOMS HealthcareMCV (RBC) [Entitic vol]94 fL80 - 100 fLNOIL HealthcareMonocytes (Bld) [#/Vol]0.4 10*3/uLNOMS HealthcareMonocytes/100 WBC (Bld)7.0 %NOMS HealthcareNeutrophils (Bld) [#/Vol]3.3 10*3/uLNOMS HealthcareNeutrophils/100 WBC (Bld)61.2 %NOMS HealthcarePlatelet mean volume (Bld) [Entitic vol]7.9 fL7 - 12 [facility] HealthcarePlatelets (Bld) [#/Vol]271 10*3/[facility] HealthcareRBC (Bld) [#/Vol]3.68 10*6/uLSelect Medical Specialty Hospital - [facility] HealthcareWBC corrected for nucl RBC Auto (Bld) [#/Vol]5.5NOMS [facility] HealthcareOutside Colonoscopyon 75-59-5500Ppoyoqf [id number]#1.00TIFUC HealthReminderson 92-79-9421Gkltgvydt From: Rosaline Elam LPN To: N - Clinical; Sent: 03/30/2024 13:07:22 EDT Show up: 02/26/2034 07:00:00 EDT Subject: colonoscopy recall Due Date/Time: 03/29/2034 07:00:00 EDT Reminder/Recall Patient due for screening colonoscopy 03/29/2034.[facility] DaytonInsurance Correspondenceon 15-71-3993Gtklsclvk Correspondence [id number]#1.00[facility] HospitalConsent for Procedure/Surgeryon 53-20-9731Jrelfsm for Procedure/Surgery [id number]#1.00[facility] HospitalFacesheeton 69-56-3829Qtusrbsze [id number]#1.00[facility] HospitalAmbulatory Visit Summaryon 64-10-7901Qiolmxhhgo Visit Summary AUTUMN BRANDT :1965 Visit Date:02/01/2024 [...] you for choosing us for your care. [facility] DaytonProvider Letteron 12-24-2023 Provider Letter December 24, 2023 AUTUMN BRANDT [address] [place] [address] : 1965 Dear Ms. Brandt, We have [...] your prompt attention to this matter. Sincerely, [facility] General Surgery [phone] Health Perrysburg HospitalPhysician Referralon 12-07-2023 Physician [id number]#1.00TIFUC HealthPhysician Referralon 22-75-6395Kjgkobndq Referral [id number]#1.00[facility] HospitalCUURE ABSCESSon 39-64-5371VURZEGZ ABSCESSIsolate 1 Staphylococcus aureus Moderate growth of [...] <=10 S F Oxacillin 0.5 S FNormalThe Crystal Clinic Orthopedic CenterComment on above:Performed By: #### ABCESCX #### [facility] [address] [place] [address] Dr. Augustin Mckeond-19 PCR (CVDTB)on 19-50-5235DZQR-CoV-2 (COVID-19) RNA DAI+probe Ql (Unsp spec)Not detectedNormalNOT DETECTEDKindred Hospital Dayton Comment on above:Result Comment: This test is not yet approved or cleared by the [place] FDA. When there are no FDA-approved or cleared tests available, and other criteria are met, FDA can make tests available under an emergency access mechanism called an Emergency Use Authorization (EUA). The EUA for this test is supported by the [place] of Health and Human Service's (HHS's) declaration [...] consistent with SARS-CoV-2.Performed By: #### CVDTBH #### [facility] [address] [place] [address] [address] Augustin Adams Vital Signs Date TimeVital SignValuePerforming SphvuwlahSwmbqznp16-73-6300 09:43-0500Body korjbh391.1 cmBrittany Sanchez MANAGER OF INTERNATIONAL-C Work Phone: [phone]11-05-2025 09:43-0500 Body mass index (BMI) [Ratio]25.8 kg/y8Ejeilkev Sanchez MANAGER OF INTERNATIONAL-C Work Phone: [phone])[address]11-05-2025 09:43-0500 Body fvwhfyniwwq91.9 [degF]Daniel Sanchez MANAGER OF INTERNATIONAL-C Work Phone: [phone] [place], [place] 565[address]11-05-2025 09:43-0500 Body kaqfeq86.47 kgBrittany Sanchez MANAGER OF INTERNATIONAL-C Work Phone: [phone] [place], [place] 5657511-05-2025 09:43-0500 Diastolic blood yrmxybyw99 mm[Hg]Daniel Sanchez MANAGER OF INTERNATIONAL-C Work Phone: [phone] [place], [place] [address]11-05-2025 09:43-0500 Heart rate58 /minBrittany Sanchez MANAGER OF INTERNATIONAL-C Work Phone: [phone])[address]11-05-2025 09:43-0500 Respiratory rate13 /minBrittany Sanchez MANAGER OF INTERNATIONAL-C Work Phone: [phone] [place], [place] 565[address]11-05-2025 09:43-0500 SaO2% (BldA) [Mass fraction]98 %Daniel Sanchez MANAGER OF INTERNATIONAL-C Work Phone: [phone])[address]11-05-2025 09:43-0500 Systolic blood aoznoiop41 mm[Hg]Daniel Sanchez MANAGER OF INTERNATIONAL-C Work Phone: [phone])[address]10-08-2025 14:43-0400 Body iekzkw349.1 cmBrittany Sanchez MANAGER OF INTERNATIONAL-C Work Phone: [phone]10-08-2025 14:43-0400 Body mass index (BMI) [Ratio]25.7 kg/s4Gqbeetia Sanchez MANAGER OF INTERNATIONAL-C Work Phone: [phone])[address]10-08-2025 14:43-0400 Body rrwbuzqsqln97.1 [degF]Daniel Sanchez MANAGER OF INTERNATIONAL-C Work Phone: [phone])[address]10-08-2025 14:43-0400 Body pyesry73.08 kgBrittany Sanchez MANAGER OF INTERNATIONAL-C Work Phone: [phone])[address]10-08-2025 14:43-0400 Diastolic blood jyqepxoc34 mm[Hg]Daniel Sanchez MANAGER OF INTERNATIONAL-C Work Phone: [phone] [place], [place] 565[address]10-08-2025 14:43-0400 Heart rate72 /minBrittany Sanchez MANAGER OF INTERNATIONAL-C Work Phone: [phone])[address]10-08-2025 14:43-0400 Respiratory rate16 /minBrittany Sanchez MANAGER OF INTERNATIONAL-C Work Phone: [phone])[address]10-08-2025 14:43-0400 SaO2% (BldA) [Mass fraction]97 %Daniel Sanchez MANAGER OF INTERNATIONAL-C Work Phone: [phone])[address]10-08-2025 14:43-0400 Systolic blood mjjnsbti144 mm[Hg]Daniel Sanchez MANAGER OF INTERNATIONAL-C Work Phone: [phone])[address]09-17-2025 08:31-0400 Body cyraiw792.1 cmBrittany Sanchez MANAGER OF INTERNATIONAL-C Work Phone: [phone])[address] [place], [place] 5657509-17-2025 08:31-0400 Body mass index (BMI) [Ratio]26.2 kg/m6Piepupat Sanchez MANAGER OF INTERNATIONAL-C Work Phone: [phone] [place], [place] 3000909-17-2025 08:31-0400 Body ljbqwqoevze77.8 [degF]Daniel Sanchez MANAGER OF INTERNATIONAL-C Work Phone: [phone]09-17-2025 08:31-0400 Body lusvgt98.32 kgJanieittany Sacnhez MANAGER OF INTERNATIONAL-C Work Phone: [phone]09-17-2025 08:31-0400 Diastolic blood aqgjtuuy49 mm[Hg]Daniel Sanchez MANAGER OF INTERNATIONAL-C Work Phone: [phone] [address]09-17-2025 08:31-0400 Heart rate90 /minBrittany Sanchez MANAGER OF INTERNATIONAL-C Work Phone: [phone]09-17-2025 08:31-0400 Respiratory rate18 /minBrittany Sanchez MANAGER OF INTERNATIONAL-C Work Phone: [phone] [place], [place] 3000909-17-2025 08:31-0400 SaO2% (BldA) [Mass fraction]97 %Daniel Sanchez MANAGER OF INTERNATIONAL-C Work Phone: [phone]09-17-2025 08:31-0400 Systolic blood tkcpgarz210 mm[Hg]Daniel Sanchez MANAGER OF INTERNATIONAL-C Work Phone: [phone] [place], [place] [address]908-19-2025 11:11-0400 Body yvdzdx865.1 cmQuinten Figueroa MD Work Phone: [phone] WashingtonRtogxgomrb25-17-0661 11:11-0400Body mass index (BMI) [Ratio]25.63 kg/m2Quinten Figueroa MD Work Phone: [facility] WashingtonLtdcoditir97-62-3501 11:11-0400Body zqigvs27.85 kgQuinten Figueroa MD Work Phone: [phone]-[facility] CareMer[facility] Hospital WashingtonVqyscgamwo63-88-0121 09:11-0400Body mass index (BMI) [Ratio]27.09 kg/m2Jacque Daniel MANAGER OF INTERNATIONAL Work Phone: [facility] WashingtonTiuvjysaot45-99-6439 09:11-0400Body temperature 98.49 [degF]Jacque Daniel MANAGER OF INTERNATIONAL Work Phone: [facility] WashingtonHatytbykbc09-17-8497 09:11-0400Body hvkagk58.85 kgJacque Daniel MANAGER OF INTERNATIONAL Work Phone: [facility] WashingtonUfwhtrfpve66-55-2843 09:11-0400Diastolic blood rmkzgjac72 mm[Hg]Jacque Daniel MANAGER OF INTERNATIONAL Work Phone: [facility] WashingtonWzhewzqcun90-51-0892 09:11-0400Heart rate80 /min Jacque Daniel MANAGER OF INTERNATIONAL Work Phone: [facility] WashingtonJxamfwfcif43-39-2582 09:11-0400Respiratory rate18 /minJacque Daniel MANAGER OF INTERNATIONAL Work Phone: [facility] WashingtonEhsynxzpwq09-20-6774 09:11-2519VnD2% (BldA) [Mass fraction]99 %Jacque Daniel MANAGER OF INTERNATIONAL Work Phone: [facility] WashingtonWsugpjzpir33-70-6458 09:11-0400Systolic blood ihczejel683 mm[Hg]Jacque Daniel MANAGER OF INTERNATIONAL Work Phone: [facility] WashingtonMlnyhpzlen90-40-3931 08:38-0400Body mass index (BMI) [Ratio]27.29 kg/y2Jjxcsfjcammy DAMON Work Phone: [facility]05-01-2025 08:38-0400Body tlcyqg33.39 kgMattcammy DAMON Work Phone: [facility]05-01-2025 08:38-0400Diastolic blood qhaettsy08 mm[Hg]Krista Diehl PA Work Phone: [facility]05-01-2025 08:38-0400Heart rate 96 /minMattcammy DAMON Work Phone: [facility]05-01-2025 08:38-0400 Respiratory rate14 /minMatthew Jamey DAMON Work Phone: [facility]05-01-2025 08:38-0111LnR5% (BldA) [Mass fraction]100 %Krista DAMON Work Phone: [facility]05-01-2025 08:38-0400Systolic blood mm[Hg]Krista DAMON Work Phone: [facility]04-29-2025 11:37-0400Body mass index (BMI) [Ratio]27.09 kg/m2Lisa Roberthholz MANAGER OF INTERNATIONAL Work Phone: [facility] WashingtonCmlgrcyabx35-61-0065 11:37-0400Body temperature 97.5 [degF]Jacque Roberthdarz MANAGER OF INTERNATIONAL Work Phone: [facility] WashingtonLxxotxeftk63-70-2772 11:37-0400Body erutdr84.85 kgLisa Roberthholz MANAGER OF INTERNATIONAL Work Phone: [facility] WashingtonXmcinpxdfx15-50-4696 11:37-0400Diastolic blood xwgorufj50 mm[Hg]Jacque Aichholz MANAGER OF INTERNATIONAL Work Phone: [facility] WashingtonWehtaisyxc63-88-3279 11:37-0400Heart rate92 /min Jacque Aichholz MANAGER OF INTERNATIONAL Work Phone: [facility] WashingtonEeqijpjulm05-37-6863 11:37-0400Respiratory rate18 /minLisa Aichholz MANAGER OF INTERNATIONAL Work Phone: [place] [address]Rkrmvhllsm74-09-5561 11:37-5002OrN2% (BldA) [Mass fraction]98 %Jacque Aichholz MANAGER OF INTERNATIONAL Work Phone: [facility] WashingtonVontvhfysp04-81-5345 11:37-0400Systolic blood epacyptw052 mm[Hg]Jacque Aichholz MANAGER OF INTERNATIONAL Work Phone: [place] [address]Yxyclpxhxy20-93-2350 10:16-0400Body oyqkxq031.1 cmFemata Goode MANAGER OF INTERNATIONAL Work Phone: [facility] WashingtonWqswqsoaug72-86-3659 10:16-0400Body mass index (BMI) [Ratio]24.96 kg/e1QcclndqBravo Goode MANAGER OF INTERNATIONAL Work Phone: [facility] WashingtonKjqopmjded69-22-7594 10:16-0400Body mtjeen38.04 kgFemata Goode MANAGER OF INTERNATIONAL Work Phone: [facility] WashingtonKcrsaleuvf06-11-9908 10:16-0400Diastolic blood mobixump77 mm[Hg]Bravo Goode MANAGER OF INTERNATIONAL Work Phone: [facility] WashingtonPrhcddtazr32-00-6632 10:16-0400Systolic blood tkucsznn374 mm[Hg]Bravo Goode MANAGER OF INTERNATIONAL Work Phone: [facility] WashingtonYdgdapqikr35-22-4941 09:55-0400Body mass index (BMI) [Ratio]27.16 kg/m2Jacque Roberttiesharobbie MANAGER OF INTERNATIONAL Work Phone: [facility] WashingtonMthkdyoovi95-42-9864 09:55-0400Body temperature 97.81 [degF]Jacque María MANAGER OF INTERNATIONAL Work Phone: [facility] WashingtonCggeyudsyv27-38-0206 09:55-0400Body jduzjc28.03 kgJacque María MANAGER OF INTERNATIONAL Work Phone: [facility] WashingtonWrfgftqbgc32-61-1142 09:55-0400Diastolic blood uwogwvoa86 mm[Hg]Jacque María MANAGER OF INTERNATIONAL Work Phone: [facility] WashingtonPfkykauyum99-18-2552 09:55-0400Heart rate84 /min Jacque Ericz MANAGER OF INTERNATIONAL Work Phone: [place] [address]Xxfbsjqpzd56-73-4326 09:55-0400Respiratory rate18 /minLisa María MANAGER OF INTERNATIONAL Work Phone: [facility] WashingtonUultngmbvv11-04-1791 09:55-7242RyO9% (BldA) [Mass fraction]98 %Jacque María MANAGER OF INTERNATIONAL Work Phone: [facility] WashingtonQznwoarkjs10-12-7607 09:55-0400Systolic blood uadqnuxa475 mm[Hg]Jacque Daniel MANAGER OF INTERNATIONAL Work Phone: [facility] WashingtonXncjeknqug93-89-2246 09:25-0400Body fmmanp107.1 cmMattcammy Diehl PA Work Phone: [phone]03-25-2025 09:25-0400Body mass index (BMI) [Ratio]27.46 kg/c4Sroxuvhcammy Diehl PA Work Phone: [phone]03-25-2025 09:25-0400Body jyaeno22.84 kgMattparagw Jamey PA Work Phone: [phone]03-25-2025 09:25-0400Diastolic blood qfbagpvp53 mm[Hg]Krista Diehl PA Work Phone: [phone]03-25-2025 09:25-0400Heart rate 88 /minMattcammy Diehl PA Work Phone: [phone]03-25-2025 09:25-3016MzJ1% (BldA) [Mass fraction]100 %Krista Diehl PA Work Phone: [phone]03-25-2025 09:25-0400Systolic blood gkwstinl883 mm[Hg]Krista Diehl PA Work Phone: [phone]02-18-2025 07:53-0500Diastolic blood iiifvkrr12 mm[Hg]Denise Diehl CORE MAKER-[employer]TER Work Phone: [phone]02-18-2025 07:53-0500Heart rate 81 /minSamannan Aggarwalenberg CORE MAKER-[employer] LEATHER SETTER Work Phone: [phone]02-18-2025 07:53-0500 Respiratory rate18 /minSamantiffanya Alessiaenberg CORE MAKER-BLUE LEATHER SETTER Work Phone: [phone]02-18-2025 07:53-7150ExL1% (BldA) [Mass fraction]100 %Denise Diehl CORE MAKER-[employer] LEATHER SETTER Work Phone: [facility]02-18-2025 07:53-0500Systolic blood ixinqgsi533 mm[Hg]Denise Diehl CORE MAKER-[employer]UE LEATHER SETTER Work Phone: [facility]01-28-2025 10:52-0500Body skeyba290.1 cmQuinten Figueroa MD Work Phone: [facility] WashingtonEedzvnbleg07-68-3232 10:52-0500Body mass index (BMI) [Ratio]24.96 kg/m2Quinten Figueroa MD Work Phone: [facility] WashingtonFiautazzvo38-55-2490 10:52-0500Body xjmqgu32.04 kgQuinten Figueroa MD Work Phone: [facility] WashingtonZudnloaapt59-29-7494 10:52-0500Diastolic blood ppopmupe29 mm[Hg]Quinten Figueroa MD Work Phone: [facility] WashingtonIskqdlzfcp83-94-8327 10:52-0500Heart rate74 /min Quinten Figueroa MD Work Phone: [facility] WashingtonGvluxnyudf13-75-4623 10:52-0500Systolic blood eegisslu310 mm[Hg]Quinten Figueroa MD Work Phone: [facility] WashingtonJzdwhcozwv76-44-0213 13:44-0500Body eysdjk932.1 cmPHYSICIAN [facility]01-16-2025 13:44-0500Body mass index (BMI) [Ratio]27.1 kg/h4KHKCFGGFN [facility]01-16-2025 13:44-0500Body .93 kgPHYSICIAN [facility]01-15-2025 08:00-0500Body cadtem415.1 cmDaniel Sanchez NP Work Phone: [facility] WashingtonYusbjanaxt34-53-3273 08:00-0500Body mass index (BMI) [Ratio]23.9 kg/x0ZpjanaduDaniel Francozpatrick MANAGER OF INTERNATIONAL Work Phone: [facility] WashingtonInuxlnuuxd27-05-1862 08:00-0500Body temperature 97.9 [degF]Daniel Villarealtrick MANAGER OF INTERNATIONAL Work Phone: [facility] WashingtonAsjsycnqld72-45-2084 08:00-0500Body obcsok52.14 kgDaniel Villarealtrick MANAGER OF INTERNATIONAL Work Phone: [phone] [place], [place] [address]Pvlceqavpl38-45-4649 08:00-0500Diastolic blood lydegvgy27 mm[Hg]Daniel Villarealtrick MANAGER OF INTERNATIONAL Work Phone: [phone] WashingtonKiubstibys66-97-1225 08:00-0500Heart rate96 /min Daniel Villarealtrick MANAGER OF INTERNATIONAL Work Phone: [facility] WashingtonSmfldsbwvl89-84-1808 08:00-0500Respiratory rate16 /minDaniel Villarealtrick MANAGER OF INTERNATIONAL Work Phone: [facility] WashingtonRkepueabhw63-06-7955 08:00-3335CtX2% (BldA) [Mass fraction]99 %Daniel Villarealtrick MANAGER OF INTERNATIONAL Work Phone: [facility] WashingtonCkuilvromj59-21-8579 08:00-0500Systolic blood tyvsbpni284 mm[Hg]Daniel Villarealtrick MANAGER OF INTERNATIONAL Work Phone: [facility] WashingtonOqgakguxfv53-36-1437 17:30-0500Body oaafpc999.1 cmPHYSICIAN [facility]12-04-2024 17:30-0500Body mass index (BMI) [Ratio]26.9 kg/k9JKNVDGPXQ [facility]12-04-2024 17:30-0500Body gdsspineirl26.7 [degF]PHYSICIAN [facility]12-04-2024 17:30-0500Body shzaam05.48 kg PHYSICIAN [facility]12-04-2024 17:30-0500 Diastolic blood gcpuuiob62 mm[Hg]PHYSICIAN [facility]12-04-2024 17:30-0500Heart rate85 /minPHYSICIAN [facility]12-04-2024 17:30-0500Respiratory rate18 /minPHYSICIAN [facility]12-04-2024 17:30-7507HrD6% (BldA) [Mass fraction]98 %PHYSICIAN [facility]12-04-2024 17:30-0500Systolic blood tywvelzk200 mm[Hg]PHYSICIAN NO [facility]11-05-2024 08:26-0500Body faordm167.1 cmSchasity Diehl CORE MAKER[employer]TER Work Phone: [facility]11-05-2024 08:26-0500Body mass index (BMI) [Ratio]27.52 kg/k8Afdpcbmi [place]ien[place] CORE MAKER[employer]TER Work Phone: [facility]11-05-2024 08:26-0500Body .03 kgSamargaret Aggarwalenberg CORE MAKER-[employer]TER Work Phone: [facility] [facility] 08:26-0500Diastolic blood evzzhvin30 mm[Hg]Denise Aggarwalenberg CORE MAKER-BLUE LEATHER SETTER Work Phone: [facility]11-05-2024 08:26-0500Heart rate 72 /minSamannan Aggarwalenberg CORE MAKER-BLUE LEATHER SETTER Work Phone: [facility]11-05-2024 08:26-0500 Respiratory rate18 /minSchasity Aggarwalenberg CORE MAKER-BLUE LEATHER SETTER Work Phone: [facility]11-05-2024 08:26-1376GyT6% (BldA) [Mass fraction]99 %Denise Aggarwalenberg CORE MAKER-BLUE LEATHER SETTER Work Phone: [facility]11-05-2024 08:26-0500Systolic blood zlfkiicy673 mm[Hg]Denise Diehl CORE MAKER-BLUE LEATHER SETTER Work Phone: [facility]11-04-2024 16:04-0500Body vyfekq696.1 Yesi Sanchez MANAGER OF INTERNATIONAL Work Phone: [facility]Hbwpbfxjit80-98-9932 16:04-0500Body mass index (BMI) [Ratio]25.86 kg/q7BelsxjsvDaniel Villarealtrick MANAGER OF INTERNATIONAL Work Phone: [facility] WashingtonSgmyyyeetd64-55-3865 16:04-0500Body temperature 96.1 [degF]Daniel Villarealtrick MANAGER OF INTERNATIONAL Work Phone: [facility] WashingtonJudyaodvbm41-69-5198 16:04-0500Body gzbunq34.49 kgDaniel Villarealtrick MANAGER OF INTERNATIONAL Work Phone: [facility] WashingtonYumlowxajj92-60-1663 16:04-0500Diastolic blood wsosprsf96 mm[Hg]Daniel Villarealtrick MANAGER OF INTERNATIONAL Work Phone: [facility] WashingtonNrwqondbpd95-86-6949 16:04-0500Heart rate62 /min Daniel Villarealtrick MANAGER OF INTERNATIONAL Work Phone: [place] [address]Zivzzyarks93-16-1625 16:04-0500Respiratory rate16 /minDaniel Villarealtrick MANAGER OF INTERNATIONAL Work Phone: [facility] WashingtonJwxkivrytq99-54-5782 16:04-6220YfF7% (BldA) [Mass fraction]96 %Daniel Villarealtrick MANAGER OF INTERNATIONAL Work Phone: [facility] WashingtonYasxfzumct74-61-5068 16:04-0500Systolic blood jccocyeh051 mm[Hg]Daniel Villarealtrick MANAGER OF INTERNATIONAL Work Phone: [phone] [place], [place] [address]Iwhncldjah64-74-9585 14:38-0400Body ojcnqq113.1 cmAv[facility]10[facility] 14:38-0400Body mass index (BMI) [Ratio]27.5 kg/y1GhfrxfzogAvita Health System10-23-2024 14:38-0400Body aueytpwlujp68.1 [degF][facility]10-23-2024 14:38-0400Body .98 kgAvita Health System10-23-2024 14:38-0400Diastolic blood cxysmvwd68 mm[Hg][facility]10-23-2024 14:38-0400 Heart rate87 /[facility]10-23-2024 14:38-0400 Respiratory rate18 /[facility]10-23-2024 14:38-0400 SaO2% (BldA) [Mass fraction]99 %[facility]10-23-2024 14:38-0400Systolic blood juycprlp272 mm[Hg][facility] 07-17-2024 14:31-0400Body mass index (BMI) [Ratio]27.62 kg/l3Ejypkjfhheriberto Alfredok MANAGER OF INTERNATIONAL Work Phone: [facility] WashingtonPeaqspqdmg14-02-1492 14:31-0400Body temperature 98.01 [degF]Daniel Villarealtrick MANAGER OF INTERNATIONAL Work Phone: [facility] WashingtonZbwldietzg26-74-1967 14:31-0400Body pelugt35.3 kg Daniel Villarealtrick MANAGER OF INTERNATIONAL Work Phone: [facility] WashingtonXbnlgncaki76-96-3384 14:31-0400Diastolic blood wggilesk97 mm[Hg]Daniel Sanchez MANAGER OF INTERNATIONAL Work Phone: [facility] WashingtonTsqyxkmodo01-69-5496 14:31-0400Heart rate75 /min Daniel Carrasquillopatrick MANAGER OF INTERNATIONAL Work Phone: [facility] WashingtonRezbxomewy65-08-7023 14:31-4734MmB8% (BldA) [Mass fraction]99 %Daniel Sanchez MANAGER OF INTERNATIONAL Work Phone: [facility] WashingtonYdwierarwq33-09-0815 14:31-0400Systolic blood hyboqdai865 mm[Hg]Daniel Sanchez MANAGER OF INTERNATIONAL Work Phone: [facility] WashingtonCjivqxdeon60-41-5203 14:06-0400Body xakrjc452.1 Golddenisjuan Jamey HAIRN-BLUE LEATHER SETTER Work Phone: [facility]09-17-2024 14:06-0400Body mass index (BMI) [Ratio]28.62 kg/m0Paxlmgvomargaret Diehl APRN-BLUE LEATHER SETTER Work Phone: [facility]09-17-2024 14:06-0400Body uhdsyn84.02 kgSamargaret Diehl APRN-BLUE LEATHER SETTER Work Phone: [facility]09-17-2024 14:06-0400Diastolic blood mm[Hg]Denise Diehl APRN-BLUE LEATHER SETTER Work Phone: [facility]09-17-2024 14:06-0400Heart rate 80 /Robert Diehl APRN-BLUE LEATHER SETTER Work Phone: [phone]09-17-2024 14:06-0400 Respiratory rate18 /Robert Diehl APRN-BLUE LEATHER SETTER Work Phone: [facility]09-17-2024 14:06-6558JgP5% (BldA) [Mass fraction]100 %Denise Diehl APRN-BLUE LEATHER SETTER Work Phone: [facility]09-17-2024 14:06-0400Systolic blood aengjctq503 mm[Hg]Denise Diehl APRN-BLUE LEATHER SETTER Work Phone: [facility]08-27-2024 12:26-0400Body .1 cmQuinten Figueroa MD Work Phone: [facility] WashingtonWflhqsufdw93-71-9263 12:26-0400Body mass index (BMI) [Ratio]28.29 kg/m2Quinten Figueroa MD Work Phone: [facility] WashingtonCpeedtrfeb97-63-3539 12:26-0400Body .11 kgQuinten Figueroa MD Work Phone: [phone] [place], [place] [address]Gxpjwqclsl34-70-7431 08:49-0400Body .1 cmSchasity Diehl APRN-BLUE LEATHER SETTER Work Phone: [facility]08-13-2024 08:49-0400Body mass index (BMI) [Ratio]28.62 kg/t7Bezmkpxb Nienberg CORE MAKER-BLUE LEATHER SETTER Work Phone: [facility]08-13-2024 08:49-0400Body icckoh89.02 kgSamargaret Diehl APRN-BLUE LEATHER SETTER Work Phone: [facility]08-13-2024 08:49-0400Diastolic blood cgrksemh74 mm[Hg]Denise Diehl APRN-BLUE LEATHER SETTER Work Phone: [facility]08-13-2024 08:49-0400Heart rate 74 /minSchasity Diehl CORE MAKER-BLUE LEATHER SETTER Work Phone: [facility]08-13-2024 08:49-0400 Respiratory rate20 /minSchasity Diehl CORE MAKER-BLUE LEATHER SETTER Work Phone: [facility]08-13-2024 08:49-2595ZxY1% (BldA) [Mass fraction]100 %Denise Diehl APRN-BLUE LEATHER SETTER Work Phone: [facility]08-13-2024 08:49-0400Systolic blood oslyrysp166 mm[Hg]Denise Diehl APRN-BLUE LEATHER SETTER Work Phone: [facility]04-23-2024 13:35-0400Blood Pressure LocationMichael NILL [phone]-NhboeMer[facility]04-23-2024 13:35-0400Diastolic blood lysfgqax31 mm[Hg]Jaswant NILL [phone]-PheomMercy Health [facility]04-23-2024 13:35-0400Heart rate70 /minMichael NILL [phone]-MyxqkMercy Health [facility]04-23-2024 13:35-0400Respiratory rate16 /minMichael NILL [phone]-XxhndMercy Health [facility]04-23-2024 13:35-0400Systolic blood frijevvw588 mm[Hg]Jaswant NILL [phone]-Dgppe General Surgery [place]na Encounters Encounter DateEncounter TypeCare ProviderFacilityStart: 08-15-2025 End: 32-08-5737eoixkrtijdYzkczesy N Sanchez MANAGER OF INTERNATIONAL-C Work Phone: -[facility] ClydeStart: 08-15-2025 End: 99-52-7158Wqhjmfb encounter procedureLi Grace María MANAGER OF INTERNATIONAL-C-[facility] Work Phone: Start: 08-05-2025 End: 09-09-5476Hvnrrwecn department patient visitLI Grace VogelAdams County Regional Medical Centerca [facility] Centertart: 07-18-2025 End: 34-33-3918iaxbvghgyeLevnxadw N Sanchez MANAGER OF INTERNATIONAL-C Work Phone: [facility] Work Phone: Start: 07-18-2025 End: 07-03-1253Tzncyvq encounter procedureLisa Grace Daniel MANAGER OF INTERNATIONAL-C-[facility] Work Phone: Start: 07-10-2025 End: 53-90-2837PpkntsHhsaBipin CORTEZ [facility] 111Comment on above: Insomnia, psychophysiologicalStart: 06-27-2025 End: 10-08-7203qjhpkhinueUsxphwaa N Sanchez MANAGER OF INTERNATIONAL-C Work Phone: [facility] Work Phone: Start: 06-27-2025 End: 11-23-1910Vvcbwnx encounter procedureLisa Grace Daniel MANAGER OF INTERNATIONAL-C-[facility] Work Phone: Start: 06-26-2025 End: 13-36-0418Gaytpk Jeffry Figueroa MD Work Phone: [facility] NEUROLOGYStart: 06-26-2025 End: 32-09-0258Ynzuaa Jeffry Figueroa MD Work Phone: noMS NEUROLOGYStart: 06-26-2025 End: 99-56-5124Ahczvcid SupportQuinten Figueroa MD Work Phone: noms [facility] NeurologyComment on above: Trigger point (Primary Dx)Start: 06-26-2025 End: 61-78-5231skctyfjacnINOG D BEJNot AvailableStart: 06-19-2025 End: 42-87-3897Xpnxwseoi department patient visitLISA [facility]Med[facility] HospitalStart: 06-05-2025 End: 02-53-5933Wkkrvt flowsYoselin DAMON Work Phone: [facility] [place] [facility]opaedicsStart: 06-05-2025 End: 74-16-2745Lradfm Mindy DAMON Work Phone: [facility]opaedicsStart: 06-05-2025 End: 47-74-7581Eznzfj outpatient visit 15 minutesKrista DAMON Work Phone: [facility] OrthopaedicsComment on above:Acute pain of left shoulder (Primary Dx); Arthritis of left shoulderStart: 06-05-2025 End: 56-59-8115HujmbqOlue D Bej MD Work Phone: [facility] 111Comment on above:Insomnia, psychophysiological; Migraine with aura, intractable, with status migrainosusStart: 05-29-2025 End: 27-38-7542Ocibtu flowsNavneet Figueroa MD Work Phone: noMS NEUROLOGYStart: 05-29-2025 End: 52-66-7525Hrpybw flowsNavneet Figueroa MD Work Phone: noMS NEUROLOGYStart: 05-29-2025 End: 99-88-5146Xqpieprbz encounterQuinten Figueroa MD Work Phone: [facility] 111Start: 05-29-2025 End: 66-69-5300Owblyj outpatient visit 25 minutesMark D Bej MD Work Phone: noms [facility] NeurologyComment on above: Trigger point of neck (Primary Dx); RICHA (obstructive sleep apnea); Migraine with aura, intractable, with status migrainosus ; Family history of cerebral aneurysm; Insomnia, psychophysiological; Cervical paraspinal muscle spasm; RLS (restless legs syndrome); Intractable migraine with status migrainosus, unspecified migraine typeStart: 05-29-2025 End: 04-31-3727dthtvmywlpHPID D BEJNot AvailableStart: 05-22-2025 End: 72-27-2872Ufdryc flowsYoselin DAMON Work Phone: [facility] [place] [facility]icsStart: 05-22-2025 End: 31-49-4439Awdyvf Mindy DAMON Work Phone: [facility] [place] [facility]opaedicsStart: 05-22-2025 End: 53-11-1612Fdcgdv outpatient visit 15 minutesMaclari DAMON Work Phone: n[facility] [place] OrthopaedicsComment on above:Acute pain of right shoulder (Primary Dx); Arthritis of right shoulderStart: 05-22-2025 End: 12-96-9136yzrschnsacENTPEBJ J MEYERNot AvailableStart: 05-08-2025 End: 68-40-5398OhluldLrod Aichholz MANAGER OF INTERNATIONAL Work Phone: NOHA CWM FMComment on above:Gastroesophageal reflux disease, unspecified whether esophagitis presentStart: 05-07-2025 End: 40-80-3164Dqtppd flowsheetJacque Daniel MANAGER OF INTERNATIONAL Work Phone: NOM[facility] CWM FMStart: 05-07-2025 End: 03-61-7374Tjevfq flowsheetJacque Daniel MANAGER OF INTERNATIONAL Work Phone: [facility] CWM FMStart: 05-07-2025 End: 89-85-8253sdqufwegpiTUXT AICHHOLZNot AvailableStart: 05-07-2025 End: 97-87-1810Sowybq outpatient visit 25 minutesLisa Nessdarz MANAGER OF INTERNATIONAL Work Phone: N[facility] CWM FMComment on above:Moderate persistent asthma without complication (HCC) (Primary Dx); Hypothyroidism, unspecified type ; Major depressive disorder, recurrent episode, moderate (HCC); Wellness examination; Chronic rhinitis; Mixed hyperlipidemiaStart: 05-07-2025 End: 45-09-2653Qexriog encounter statusLisa Arzolarobbie MANAGER OF INTERNATIONAL Work Phone: [facility] HealthcareStart: 05-03-2025 End: 05-87-8909TkbyvtMjiz Aichholz MANAGER OF INTERNATIONAL Work Phone: [facility] CWM FMComment on above:Cervical spondylosis without myelopathyStart: 04-24-2025 End: 99-86-3934Vuzusohca encounterQuinten Figueroa MD Work Phone: noms [facility] NEURO 111Comment on above:Insomnia, psychophysiologicalStart: 04-12-2025 End: 92-80-8681AlvgjjKuil Aichholz MANAGER OF INTERNATIONAL Work Phone: [facility] CWM FMComment on above:Chronic rhinitisStart: 04-08-2025 End: 55-88-3994BjysmzTohp Aichholz MANAGER OF INTERNATIONAL Work Phone: [facility] CWM FMComment on above:Cervical spondylosis without myelopathyStart: 02-16-2025 End: 17-54-3942AgqpoaJwyk Aichholz MANAGER OF INTERNATIONAL Work Phone: N[facility] CWM FMComment on above:Major depressive disorder, recurrent episode, moderate (CMS/HCC)Start: 02-10-2025 End: 48-11-9332OoggxnYrbr Aichholz MANAGER OF INTERNATIONAL Work Phone: N[facility] CWM FMComment on above:Cervical spondylosis without myelopathy (Primary Dx)Start: 02-08-2025 End: 48-52-2736pbwzzkwurfBYVWBCIJamaica Plain VA Medical Centertart: 02-08-2025 End: 05-18-3709Dgelch outpatient visit 15 minutesKrista Brandin Jamey DAMON Work Phone: [facility] ClinicComment on above:Cervical spondylosis without myelopathy (Primary Dx) Start: 02-06-2025 End: 38-93-1051Ifgbdd flowsheetLisa Aichholz MANAGER OF INTERNATIONAL Work Phone: [facility] CWM FMStart: 02-06-2025 End: 84-70-3900Byzhcf flowsheetLisa Aichholz MANAGER OF INTERNATIONAL Work Phone: [facility] CWM FMStart: 02-06-2025 End: 01-38-0754Cwabag outpatient visit 15 minutesLisa Aichholz MANAGER OF INTERNATIONAL Work Phone: [facility] CWM FMComment on above:Acute non-recurrent pansinusitis (Primary Dx); Chronic rhinitisStart: 02-06-2025 End: 61-22-0222qtzbhjporfQYPE AICHHOLZNot AvailableStart: 01-17-2025 End: 05-09-5892LedyliEokl Aichholz MANAGER OF INTERNATIONAL Work Phone: NORI CWM FMStart: 01-16-2025 End: 88-10-5997vjsffqppghHJGPYRW C WINDNAGELNot AvailableStart: 01-16-2025 End: 37-85-3123Itupem outpatient visit 25 minutesFelicia C Windnagel MANAGER OF INTERNATIONAL Work Phone: noms [facility] NEUR BComment on above:RICHA (obstructive sleep apnea) (Primary Dx); Migraine with aura, intractable, with status migrainosus (CMS/HCC); RLS (restless legs syndrome); Poor sleep hygiene; Family history of cerebral aneurysm; Insomnia, psychophysiological; Cervical spondylosis without myelopathyStart: 01-12-2025 End: 86-01-8682uprtmvmeouKZBNFZE E HOGANProKing'S Daughters Medical Center [facility] HospitalStart: 01-09-2025 End: 63-04-2347Vtiqbj flowsheetLisa Aichholz MANAGER OF INTERNATIONAL Work Phone: NOMS CWM FMStart: 01-09-2025 End: 99-26-2714Tpqrqm flowsDulce Daniel MANAGER OF INTERNATIONAL Work Phone: noms CWM FMStart: 01-09-2025 End: 34-03-7372rdpdryskuvZAPA AICHHOLZNjosey AvailableStart: 01-09-2025 End: 04-85-8365Bsxpyw outpatient visit 25 minutesJacque Daniel MANAGER OF INTERNATIONAL Work Phone: noms CW FMComment on above:Gastroesophageal [...] of cervical region; Chronic rhinitisStart: 01-09-2025 End: 45-91-1163Yfhyekl encounter statusJacque Daniel MANAGER OF INTERNATIONAL Work Phone: noms HealthcareStart: 01-02-2025 End: 95-38-5132jqijtayiifZILFJTY S NIENBERGAshtabula County Medical Center HospitalStart: 01-02-2025 End: 61-41-4845Pirwpm outpatient visit 25 minutesBuffalo General Medical Centercammy DAMON Work Phone: [facility] Management ClinicComment on above:Intervertebral disc stenosis of neural canal of cervical region (Primary Dx)Start: 12-13-2024 End: 05-92-9252Gkrknd Mindy DAMON Work Phone: noms [facility]Start: 12-13-2024 End: 81-30-0729Yuerow Mindy DAMON Work Phone: noms FB ORTHOPAEDICSStart: 12-13-2024 End: 30-82-0923tcsknelhowKSROVXD J MEYERNot AvailableStart: 12-13-2024 End: 70-43-3503Tpnybz outpatient visit 10 minutesKrista DAMON Work Phone: noms FB ORTHOPAEDICSComment on above:Acute pain of right shoulder (Primary Dx); Neck pain on right side; Arthritis of right shoulder regionStart: 12-06-2024 End: 03-67-7180MvthnkYnxd D Bej MD Work Phone: NOOA SWS NEUR BComment on above:Insomnia, psychophysiological; Migraine with aura, intractable, with status migrainosus (CMS/HCC)Start: 11-28-2024 End: 55-70-2794Covdcl outpatient visit 15 minutesmargaret Danyelle Jamey CORE MAKER-BLUE LEATHER SETTER Work Phone: [facility] ClinicComment on above:Cervical spondylosis without myelopathy (Primary Dx) Start: 11-28-2024 End: 36-59-6495fcfcihahntLZZLKMLVSan Gabriel Valley Medical Centertart: 11-21-2024 End: 56-41-7186Paeygwzhw encounterErna CORTEZ [facility] NEURO 111Start: 11-17-2024 End: 40-96-2319ZqkihfGanzldjv Fitzpatrick NP Work Phone: noms CWM FMComment on above:Cervical spondylosis without myelopathy; Major depressive disorder, recurrent episode, moderate (CMS/HCC); Chronic rhinitisStart: 11-07-2024 End: 95-30-6717Kmpajy Jeffry Figueroa MD Work Phone: noms BM NEUROLOGYStart: 11-07-2024 End: 20-78-9462Jwghsqamalia Figueroa MD Work Phone: noms BM NEUROLOGYStart: 11-07-2024 End: 15-02-2259mqygpuhnphQBSH D BEJNot AvailableStart: 11-07-2024 End: 68-16-8631Pyzylj outpatient visit 25 minutesQuinten Figueroa MD Work Phone: noms SWS NEUR BComment on above:RICHA (obstructive sleep apnea) (Primary Dx); Migraine with aura, intractable, with status migrainosus (CMS/HCC); RLS (restless legs syndrome); Poor sleep hygiene; Family history of cerebral aneurysm; Insomnia, psychophysiologicalStart: 11-03-2024 End: 93-65-6609Usobui flowsYoselin DAMON Work Phone: noms FB ORTHOPAEDICSStart: 11-03-2024 End: 03-46-6506Vstmsj flowsYoselin DAMON Work Phone: noms FB ORTHOPAEDICSStart: 11-03-2024 End: 77-73-5355uhzsebixgvZRNKOYJ J MEYERNot AvailableStart: 11-03-2024 End: 77-02-5558Xampnv outpatient visit 25 minutesMattcammy DAMON Work Phone: noms FB ORTHOPAEDICSComment on above:Acute pain of right shoulder (Primary Dx); Arthritis of right shoulder region; Arthritis of right acromioclavicular joint; Impingement of right shoulderStart: 11-02-2024 End: 14-43-7830Pauzjb OnlyDaniel Villarealtrick MANAGER OF INTERNATIONAL Work Phone: noms CWM FMComment on above:Recurrent epistaxis (Primary Dx)Start: 11-01-2024 End: 40-81-3790Hybxtr OnlyBrandreaany Sanchez MANAGER OF INTERNATIONAL Work Phone: NOLI CWM FMStart: 10-27-2024 End: 40-53-0876Bhdifdw encounter statusBrittany Sanchez MANAGER OF INTERNATIONAL Work Phone: noms HealthcareStart: 10-27-2024 End: 62-06-0369RlwflnLpyltbib Sanchez MANAGER OF INTERNATIONAL Work Phone: noms CWM FMComment on above:Wellness examinationStart: 10-26-2024 End: 50-35-7511uipymuifhlURRLKOEUV NO [facility] Work Phone: Start: 10-26-2024 End: 27-33-1908Cwllnat encounter procedurePHYSICIAN NO [facility] Work Phone: start: 10-25-2024 End: 57-73-1070Kuwdso flowsheetBrittany Sanchez MANAGER OF INTERNATIONAL Work Phone: NOKV CWM FMStart: 10-25-2024 End: 98-85-7230Dtyqzr flowsheetBrittany Sanchez MANAGER OF INTERNATIONAL Work Phone: NOYQ CWM FMStart: 10-25-2024 End: 70-55-0449Smeapk outpatient visit 15 minutesBritttracey FrancoSanchez MANAGER OF INTERNATIONAL Work Phone: noms CWM FMComment on above:Major depressive disorder, recurrent episode, moderate (CMS/HCC) (Primary Dx); Cervical spondylosis without myelopathy; Dyslipidemia (CMS/HCC); Primary hypertension (CMS/HCC)Start: 10-25-2024 End: 61-30-6905lmvrgauuulPLSMGPJJ FITZPATRICKNot AvailableStart: 10-20-2024 End: 13-30-5307guyzxlkeonKBRHPNI E HOGANProMedica [facility] Medical Centertart: 10-12-2024 End: 62-68-3393gnsiikkikpQNNUELO C WINDNAGELNot AvailableStart: 10-10-2024 End: 49-03-8232Qqtidm flowsheetFelicia C Windnagel MANAGER OF INTERNATIONAL Work Phone: noms NEUROLOGYStart: 10-10-2024 End: 29-70-5433Wdijqy flowsheetFelicia C Windnagel MANAGER OF INTERNATIONAL Work Phone: noms BM NEUROLOGYStart: 10-10-2024 End: 35-10-6866uhkpcilfzoWCQPRFK C WINDNAGELNot AvailableStart: 10-10-2024 End: 88-86-9954Oicnko outpatient visit 25 minutesFelicia C Windnagel MANAGER OF INTERNATIONAL Work Phone: noms SWS NEUR BComment on above:Migraine with aura, intractable, with status migrainosus (CMS/HCC) (Primary Dx); Insomnia, psychophysiological; Poor sleep hygiene; RICHA (obstructive sleep apnea); Family history of cerebral aneurysm; RLS (restless legs syndrome); Degenerative disc disease, cervicalStart: 10-06-2024 End: 70-35-7040BdmdgtUmjvnhpx Fitzpatrick MANAGER OF INTERNATIONAL Work Phone: NOUY CWM FMComment on above:Gastroesophageal reflux disease, unspecified whether esophagitis presentStart: 10-02-2024 End: 70-01-1524SsivmlVaid Naderer MD Work Phone: noms CWM FMComment on above:Chronic pain syndrome (Primary Dx)Start: 09-28-2024 End: 46-79-2398WvzwynZkmfDali CORTEZ CWM FMComment on above:Cervical spondylosis without myelopathyStart: 09-26-2024 End: 63-27-4453lxrkwfamhzWCGIAMAHSaints Medical Centertart: 09-25-2024 End: 65-02-1650CkkslgDlzvKateryna CORTEZ CWM FMComment on above:Cervical spondylosis without myelopathyChronic rhinitis (Primary Dx)Start: 09-20-2024 End: 25-77-9057Iobtoxzho Thanh Bello MD Work Phone: noms FNR FMStart: 09-18-2024 End: 86-83-2939Lnfska flowsheetMaria B Apling MANAGER OF INTERNATIONAL Work Phone: noms CI ORTHOPAEDICSStart: 09-18-2024 End: 41-25-0062Hoypyy flowsheetMaria B Apling MANAGER OF INTERNATIONAL Work Phone: noms CI ORTHOPAEDICSStart: 09-18-2024 End: 92-07-3789Assgiq outpatient new 20 minutesMaria B Apling MANAGER OF INTERNATIONAL Work Phone: noms CI ORTHOPAEDICSComment on above:Cervical pain (Primary Dx); Cervical arthritisStart: 09-18-2024 End: 72-53-3123qhgglcjfrrTNOJW B APLINGNot AvailableStart: 09-13-2024 End: 97-35-5159Jltdbmi encounter procedurePHYSICIAN MADAY [facility] Femi Work Phone: Start: 09-13-2024 End: 67-33-3755Lugvdz flowsheetTammy Ty LSWNOMS FNR BHStart: 09-13-2024 End: 39-74-9598Azydif flowsheetTammy Ty LSWNOMS FNR BHStart: 09-13-2024 End: 39-67-5207abtghvztptXfogwz M GrobFacility:[facility] Start: 09-11-2024 End: 27-28-9514NmffvsKaymjhqsDaniele Sanchez MANAGER OF INTERNATIONAL Work Phone: noms CWM FMComment on above:Hypothyroidism, unspecified type (CMS/HCC)Start: 09-08-2024 End: 93-66-6790XyyvagGzaphyqhDaniele Sanchez MANAGER OF INTERNATIONAL Work Phone: noms CWM FMComment on above:Gastroesophageal reflux disease, unspecified whether esophagitis presentStart: 09-01-2024 End: 59-73-7484qlxbieydovUHAIJXB E HOGANThe Surgical Hospital at Southwoodsca [facility] Medical Centertart: 08-30-2024 End: 04-39-6277Buvmws flowsheetTammy Ty LSWNOMS FNR BHStart: 08-30-2024 End: 51-50-0944Gioehg flowsheetTammy Ty LSWNOMS FNR BHStart: 08-30-2024 End: 15-60-2445voumepabqoECJGM HARDYNot AvailableStart: 08-18-2024 End: 34-88-8972KvkdxwYesenia Sanchez MANAGER OF INTERNATIONAL Work Phone: noms CWM FMComment on above:Anemia, unspecified type (Primary Dx)Hypothyroidism, unspecified type (CMS/HCC) (Primary Dx)Start: 08-16-2024 End: 18-23-3196Usoaty flowsheetTammy Ty LSWNOMS FNR BHStart: 08-16-2024 End: 52-79-5922Ymsvsi flowsheetTammy Ty LSWNOMS FNR BHStart: 08-16-2024 End: 08-93-1794fyagxupfpfEIPCS HARDYNot AvailableStart: 08-15-2024 End: 74-32-3523Atiiqq outpatient visit 25 minutesSamargaret Diehl CORE MAKER-BLUE LEATHER SETTER Work Phone: [facility] ClinicComment on above:Cervical spondylosis without myelopathy (Primary Dx) Start: 08-15-2024 End: 02-30-5989szfvfhtmvbSJUVYQYQSan Gabriel Valley Medical Centertart: 08-14-2024 End: 83-36-3756Xtbthr outpatient visit 15 minutesBrheriberto FrancoSanchez MANAGER OF INTERNATIONAL Work Phone: noms CWM FMComment on above:Acute cystitis without hematuria (Primary Dx); Primary hypertension (CMS/HCC); Dyslipidemia (CMS/HCC); RICHA (obstructive sleep apnea); High cholesterol (CMS/HCC)Start: 08-14-2024 End: 61-73-1398dpekpwnvwxMSGTEFMJ FITZPATRICKNot AvailableStart: 08-14-2024 End: 29-49-5142Hvpkfm flowsheetBrittany Sanchez MANAGER OF INTERNATIONAL Work Phone: noMS CWM FMStart: 08-14-2024 End: 79-92-5723Tjztrq flowsheetBrittany Sanchez MANAGER OF INTERNATIONAL Work Phone: NOMS CWM FMStart: 08-09-2024 End: 06-57-1024Begzqs flowsheetTammy Ty LSWNOMS FNR BHStart: 08-09-2024 End: 50-38-7310Hsttpt flowsheetTammy Ty LSWNOMS FNR BHStart: 08-09-2024 End: 87-47-6661bxopvnqlvgWPKTU HARDYNot AvailableStart: 08-04-2024 End: 85-26-2464Xiumsu flowsheetTammy Ty LSWNOMS FNR BHStart: 08-04-2024 End: 71-79-3119Rdxekh flowsheetTammy Ty LSWNOMS FNR BHStart: 08-04-2024 End: 30-02-6778mzbxbgmsolCGITS HARDYNot AvailableStart: 08-02-2024 End: 68-51-4796Mtcbkawl ReferredMEGAN Miller Work Phone: [facility] [place] Work Phone: Start: 08-02-2024 End: 41-45-0132Qdgfyuq encounter procedureC[facility] [place] Work Phone: Start: 08-02-2024 End: 70-62-5371kcqvtdlotoJvdmybwc Sanchez MANAGER OF INTERNATIONAL Work Phone: [facility] [place] Work Phone: Comment on above:Gastroesophageal reflux disease, unspecified whether esophagitis present (Primary Dx)Start: 07-28-2024 End: 19-69-4322Nuzbev flowsheetTammy Ty LSWNOMS FNR BHStart: 07-28-2024 End: 87-58-9729Oyswuf flowsheetTammy Ty LSWNOMS FNR BHStart: 07-28-2024 End: 32-14-1150satftnhawiGBPIE HARDYNot AvailableStart: 07-24-2024 End: 81-94-2106Thpsybkie encounterTammy Ty LSWNOMS FNR FMComment on above: counseling apptStart: 07-17-2024 End: 93-92-3873Txndee flowsheetBrittany Sanchez MANAGER OF INTERNATIONAL Work Phone: noms CWM FMStart: 07-17-2024 End: 95-45-8065Nmygvf flowsheetBrittany Sanchez MANAGER OF INTERNATIONAL Work Phone: noms CWM FMStart: 07-17-2024 End: 54-82-9686Czoyqzt encounter statusBrheriberto Villarealtrick MANAGER OF INTERNATIONAL Work Phone: noms HealthcareStart: 07-17-2024 End: 76-57-4549Yqdttnfc preventive med est patient 40-64yrsDaniel Sanchez MANAGER OF INTERNATIONAL Work Phone: noms CWM FMComment on above:Encounter to establish care (Primary Dx); Wellness examination; Primary hypertension (CMS/HCC); Hypothyroidism, unspecified type (CMS/HCC); Anxiety; Major depressive disorder, recurrent episode, moderate (CMS/HCC); Alcohol abuse; RICHA (obstructive sleep apnea); Encounter for screening mammogram for malignant neoplasm of breast; Cervical spondylosis without myelopathyStart: 07-17-2024 End: 28-01-9205qcucftbsfbZIQLRAFKKanika Camilo AvailableStart: 07-12-2024 End: 21-38-1256Zumtdgbgp encounterSwift County Benson Health [facility]St[facility] ClinicStart: 06-27-2024 End: 72-11-7991Atdgvw outpatient visit 25 minutesSamargaret Diehl CORE MAKER-BLUE LEATHER SETTER Work Phone: [facility] Management ClinicComment on above:Cervical spondylosis without myelopathy (Primary Dx) Start: 06-19-2024 End: 80-00-5034Ykjovrvyv encounterSchasity Diehl CORE MAKER-BLUE LEATHER SETTER Work Phone: [facility] ClinicStart: 06-08-2024 End: 21-47-2608Ztleqzhf Result EncounterQuinten Figueroa MD Work Phone: noms External Department UnsolicitedStart: 06-08-2024 End: 30-57-9594Pchtuqma Result EncounterQuinten Figueroa MD Work Phone: noms External Department UnsolicitedStart: 06-06-2024 End: 12-62-7727Lvcvgb flowsheetQuinten Figueroa MD Work Phone: noms BM NEUROLOGYStart: 06-06-2024 End: 68-69-5515Ncvakc flowsheetQuinten Figueroa MD Work Phone: noms BM NEUROLOGYStart: 06-06-2024 End: 64-58-7969Qjfoix outpatient visit 25 minutesQuinten Figueroa MD Work Phone: noms SWS NEUR BComment on above:Migraine with aura, intractable, with status migrainosus (CMS/HCC) (Primary Dx); Insomnia, psychophysiological; RLS (restless legs syndrome); Family history of cerebral aneurysm; RICHA (obstructive sleep apnea); Poor sleep hygieneStart: 05-23-2024 End: 75-66-5665Yjkrqj outpatient new 45 minutesSamargaret Danyelle Jamey CORE MAKER-BLUE LEATHER SETTER Work Phone: [facility] Pain Management ClinicComment on above:Chronic neck pain (Primary Dx); Cervical radiculopathyStart: 03-29-2024 End: 92-14-7459eojsqkwafySvkcobk R NILLFacility:CD:[id number]: 02-01-2024 End: 04-56-9610jdizuvypyeOtzykvy R NILLFacility: BellevueStart: 02-01-2024 End: 50-84-6186Iajciob encounter procedureMichael R NILL [phone]-Jspge General Surgery [place] Start: 56-70-2580msumqqtfyaQZLLZ ANGLIMFacility: BellevueStart: 96-31-7313poqverzxxtZYNDC ANGLIMFacility: BellevueStart: 04-30-2022 End: 20-41-1747xovaupyvqhPZ ANNA HOUSEFacility:M1Hvsmn: 10-16-2021 End: 80-32-3851qmunejibnsSQBYWJP D KATKOFacility:H1 Procedures DateProcedureProcedure DetailPerforming ClinicianStart: 60-50-6990Zxmyncefxpsafp aspir&/inj major jt/bursa w/usMaclari DAMON Work Phone: Start: 04-03-8136Dkxqy shoulder complete minimum 2 viewsMaclari DAMON Work Phone: Start: 57-00-7329Jrniozztdhgeuu aspir&/inj major jt/bursa w/usMattcammy DAMON Work Phone: Start: 29-19-5343Cyyvw shoulder complete minimum 2 viewsMaclari DAMON Work Phone: Start: 55-81-6374Uffkh chest X-rayPHYSICIAN NO FAMILY Start: 09-13-2024 End: 58-77-5876Kygxgzgpzylpp w/patient 30 minutesPTSD (post-traumatic stress disorder) (CMS/HCC)Ricarda Ty LSWComment on above:PTSD (post-traumatic stress disorder) (CMS/HCC)Start: 08-30-2024 End: 65-02-9084Tyyusqnutzeeg w/patient 60 minutesPTSD (post-traumatic stress disorder) (CMS/HCC)Ricarda Ty LSWComment on above:PTSD (post-traumatic stress disorder) (CMS/HCC); Alcohol abuseStart: 77-69-7390Qaviyxis blood count with white cell differential, automatedBrittany Sanchez MANAGER OF INTERNATIONAL Work Phone: Start: 61-78-5782Eknsnaugnnsuo metabolic panelBrittany Sanchez MANAGER OF INTERNATIONAL Work Phone: Start: 08-40-0104Zxzim panelBrittany Sanchez MANAGER OF INTERNATIONAL Work Phone: Start: 31-26-2378DMH W/REFLEX TO CY3Ywdpostr Sanchez MANAGER OF INTERNATIONAL Work Phone: Start: 08-16-2024 End: 65-68-2245Relwixaikysyo w/patient 60 minutesPTSD (post-traumatic stress disorder) (CMS/HCC)Ricarda Ty LSWComment on above:PTSD (post-traumatic stress disorder) (CMS/HCC); Alcohol abuseStart: 94-93-5410Tuzjgxtz blood count with white cell differential, automatedBrittany Sanchez MANAGER OF INTERNATIONAL Work Phone: Start: 46-98-0971Ivfcjcbblihaf metabolic panelBrittany Sanchez MANAGER OF INTERNATIONAL Work Phone: Start: 97-37-2002Zbqrm panelDaniel Sanchez MANAGER OF INTERNATIONAL Work Phone: Start: 49-41-7051OVL W/REFLEX TO JG2Iordzzebtracey Sanchez MANAGER OF INTERNATIONAL Work Phone: Start: 08-09-2024 End: 15-84-9697Imsqgaosnqfmg w/patient 60 minutesPTSD (post-traumatic stress disorder) (CMS/HCC)Ricarda Ty LSWComment on above:PTSD (post-traumatic stress disorder) (CMS/HCC); Alcohol abuseStart: 08-04-2024 End: 50-09-3306Pvmyfxwzcocab w/patient 60 minutesPTSD (post-traumatic stress disorder) (CMS/HCC)Ricarda Ty LSWComment on above:PTSD (post-traumatic stress disorder) (CMS/HCC); Alcohol abuseStart: 47-57-8521Eefnm culturePHYSICIAN NO FAMILYStart: 07-28-2024 End: 80-29-2618Dfzwzscuwbj diagnostic evaluationAnxietyTaángel Ty LSWComment on above:Anxiety; Alcohol abuseStart: 33-09-1137FgkbuqoodcgWthik Hardy LSWStart: 06-08-2024 Complete blood count with white cell differential, automatedMark D Carolina BENITEZ Work Phone: start: 76-01-5693GzkfqsaqosmQlshfvqn Fitzpatrick MANAGER OF INTERNATIONAL Work Phone: Start: 53-87-9415AsjzbymrxhlQhdl Bej MD Work Phone: colonoscopyMichael NILL Decompression of median nerveMichael NILL 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 [facility] SystemStart: 59-87-3623Gsrigsa ScreeningTobacco ScreeningProMercy Health St. [facility] SystemStart: 80-30-7963Alvgt BMI ScreeningAdult BMI ScreeningKindred Hospital [facility] SystemStart: 23-08-1199Hygjdth ScreeningTobacco ScreeningKindred Hospital Lima SystemStart: 81-01-3092Fdqruzx ScreeningTobacco ScreeningKindred Hospital Lima SystemStart: 09-25-2025 End: 35-25-8693Uxjmgsf encounter pgioksvap87/16/2025 9:00 AM EST Office Visit [facility] [address] [place] [phone] Krista Galeano, PA [address] [place] [address] [facility] OrthopaedicsStart: 95-32-3085Oixotppoa for malignant neoplasm of colonFOBTNOMS HealthcareStart: 08-28-2025 End: 52-11-6572Quwzgwt encounter azhyfgybs30/18/2025 10:00 AM EST Office Visit [facility] [address] [facility] [address] [place] [address] Quinten Fiugeroa MD [address] [facility] [address] [place] [phone] [facility] Start: 23-62-7647Wcmmv BMI ScreeningAdult BMI ScreeningProMedica Health System Start: 81-82-0216Lxcmwzmjm for malignant neoplasm of breastMammogramNOIL HealthcareStart: 10-07-2025Medicare Annual Wellness (AWV)Medicare Annual Wellness (AWV)NOMS HealthcareStart: 07-50-1223Hrbbasx ScreeningTobacco Screening [facility] SystemStart: 07-10-2025 End: 26-38-6103Teuyyhx encounter rzykizjis89/30/2025 9:00 AM EDT Office Visit [facility] [address] [place] [address] Jacque Daniel, MANAGER OF INTERNATIONAL [address] [place] [phone] [facility] JOHNSON FMStart: 01-95-7605Iexco BMI ScreeningAdult BMI ScreeningKindred Hospital Lima SystemStart: 56-92-2660Trshvtx ScreeningTobacco ScreeningThe Surgical Hospital at Southwoodsca [facility] SystemStart: 06-26-2025 End: 23-73-2220Rgoocdgo SupportNOMS NatalieVeterans [facility] NeurologyComment on above:ArrivedStart: 87-73-0490Fzlsbslez vaccinationNOIL HealthcareStart: 06-05-2025 End: 95-40-3031Javkbub encounter procedureNOMS [place] OrthopaedicsComment on above:Acute pain of left shoulder (Primary Dx)Start: 05-29-2025 End: 89-51-6702Gisqlvd encounter procedureNOMS SWS NEUR BComment on above: ArrivedStart: 96-01-8802Ubcvz BMI ScreeningAdult BMI ScreeningKindred Hospital Lima SystemStart: 27-63-7286Wgwnfnc ScreeningTobacco ScreeningKindred Hospital Lima System Start: 05-22-2025 End: 21-33-0535Gxxokyk encounter procedureNOMS FB ORTHOPAEDICSComment on above: Acute pain of right shoulder (Primary Dx)Start: 05-10-2025 End: 51-10-4771Yucgtgc encounter fvpgcmizs83/31/2025 8:40 AM EDT Office Visit [facility] [address] [place] [address] Jacque Daniel, MANAGER OF INTERNATIONAL [address] [place] [address] NOMBrandin JOHNSON FMStart: 05-07-2025 End: 13-69-1239Chbsdss encounter /28/2025 9:00 AM EDT Office Visit [facility] [address] [place] [address] Jacque Daniel, MANAGER OF INTERNATIONAL [address] [place] [address] NOMS ALEX FMStart: 04-24-2025 End: 51-74-9309Xgwrsfl encounter /15/2025 10:45 AM EDT Office Visit [facility] SWS NEUR B [address] [facility] [address] [place] [address] Quinten Figueroa MD [address] [facility] [address] [place] [address] NOM[facility] SWS NEUR BStart: 03-27-2025 End: 21-50-1843Rvrufnk encounter ivcuoekxq97/17/2025 7:45 AM EDT Office Visit [facility] [address] [place] [address] Denise Diehl, CORE MAKER-BLUE LEATHER SETTER [address] [place] [address] [facility] ClinicStart: 02-27-2025 End: 18-29-8841Lllwgbv encounter pipmxmsaa62/20/2025 7:45 AM EDT Office Visit [facility] [address] [place] [address] Denise Diehl, CORE MAKER-BLUE LEATHER SETTER [address] [place] [address] [facility] ClinicStart: 02-06-2025 End: 77-29-2508Pnmschk encounter procedureNOMS CWM FMComment on above:Arrived Start: 02-06-2025 End: 32-33-0847Oimjcoj encounter kjlzhglsi14/29/2025 10:15 AM EDT Office Visit [facility] NE[facility] B [address] [facility] [address] [place] [address] Quinten Figueroa MD [address] [phone] [facility] SWS NEUR BStart: 01-30-2025 End: 88-59-4578Fqqkiuy encounter mlkxaccrl45/22/2025 8:45 AM EDT Office Visit [facility] [address] [place] [address] Krista Diehl PA [address] [place] [address] [facility] ClinicStart: 01-16-2025 End: 25-31-7032Mtxynex encounter bmezwvvtr12/08/2025 10:00 AM EDT Office Visit [facility] B [address] [facility] [address] [place] [address] Quinten Figueroa MD [address] [address] [facility] SWS NEUR BStart: 01-12-2025 End: 61-34-6812Lzeqxqzms to same day surgery zmypuz6401/12/2025 12:45 PM EDT - 01/12/2025 12:52 PM EDT Surgery [facility] [address] [place] [address] Pb Prasad MD [address] [place] [address] INJECTION SPINE TRANSFORAMINAL: right C 5,6Nroot [44027 (CPT )][facility] - Pain ProceduresComment on above:INJECTION SPINE TRANSFORAMINAL: right C 5,6 Nroot [37527 (CPT )]Start: 01-12-2025 End: 48-03-0514Alx anes&/strd w/img tfrml edrl crv/thrc 1 lvlINJECTION SPINE TRANSFORAMINAL Intervertebral disc stenosis of neural canal of cervical region 01/12/2025 12:45 PM EDTFREMONT PAINStart: 07-57-5676Hxbbxxdvag hospital visit by /04/2025 12:45 PM EDT Hospital Encounter [facility] [address] [place] [phone] Pb Prasad MD [address] [place] [address] [facility] Pain ProceduresStart: 01-09-2025 End: 91-77-7039MJJ W Auto Differential panel - BloodCBC and differential Lab Routine Anemia due to other cause, not classified Expected: 01/09/2025 (Mulugeta roximate), Expires: 01/09/2026[facility] Work Phone: Comment on above:Expected: 01/09/2025 (Approximate), Expires: 01/09/2026Start: 01-09-2025 End: 56-64-1565Wocjwpghsgcxk metabolic 2000 panel - Serum or PlasmaComprehensive metabolic panel Lab Routine Primary hypertension (CMS/HCC) Gastroesophageal reflux disease, unspecified whether esophagitis present Hypothyroidism, unspecified type (CMS/HCC) Mixed hyperlipidemia (CMS/HCC) Expected: 01/09/2025 (Approximate), Expires: 01/09/2026[facility] HealthcareComment on above:Expected: 01/09/2025 (Approximate), Expires: 01/09/2026Start: 01-09-2025 End: 50-43-0689Bzavervs [Mass/volume] in Serum or PlasmaFerritin Lab Routine Anemia due to other cause, not classified Expected: 01/09/2025 (Approximate), E xpires: 01/09/2026[facility] HealthcareComment on above:Expected: 01/09/2025 (Approximate), Expires: 01/09/2026Start: 01-09-2025 End: 62-62-4609Lyge + transferrin + TIBCIron + transferrin + TIBC Lab Routine Anemia due to other cause, not classified Expected: 01/09/2025 (Approximate), Expires: 01/09/2026[facility] HealthcareComment on above:Expected: 01/09/2025 (Approximate), Expires: 01/09/2026Start: 01-09-2025 End: 78-42-1395Gutsq 1996 panel - Serum or PlasmaLipid panel Lab Routine Major depressive disorder, recurrent episode, moderate (CMS/HCC) Expected: 01/09/2025 (Approximate), Expires: 01/09/2026[facility] HealthcareComment on above:Expected: 01/09/2025 (Approximate), Expires: 01/09/2026Start: 01-09-2025 End: 98-72-4938Zaxgvblsafgk/Creatinine panel in random UrineMicroalbumin / creatinine, urine ratio Lab Routine Primary hypertension ([facility]/HCC) Expected: 01/09/2025 (Approximate), Expires: 01/09/2026[facility] HealthcareComment on above: Expected: 01/09/2025 (Approximate), Expires: 01/09/2026Start: 01-09-2025 End: 44-17-8184Ruyhhtpugqf [Units/volume] in Serum or PlasmaTSH Lab Routine Hypothyroidism, unspecified type (CMS/HCC) Expected: 01/09/2025 (Approximate), Expires: 01/09/2026[facility] HealthcareComment on above:Expected: 01/09/2025 (Approximate), Expires: 01/09/2026Start: 01-09-2025 End: 30-93-7636Zudwxtdey (T4) free [Mass/volume] in Serum or PlasmaT4, free Lab Routine Hypothyroidism, unspecified type (CMS/HCC) Expected: 01/09/2025 (Approximate),Expires: 01/09/2026[facility] HealthcareComment on above:Expected: 01/09/2025 (Approximate), Expires: 01/09/2026Start: 01-09-2025 End: 71-24-8621Dcrwuvdmzk complete panel - UrineUrinalysis with reflex microscopic (clean catch) Lab Routine Primary hypertension (CMS/HCC) Expected: 01/09/2025 (Approximate), Expires: 01/09/2026[facility] HealthcareComment on above: Expected: 01/09/2025 (Approximate), Expires: 01/09/2026Start: 12-06-2024 End: 93-99-1519Xoywfgb encounter murpbfhun22/26/2025 8:00 AM EST Office Visit [facility] [address] [place] [address] Daniel Sanchez NP [address] [place] [address] [facility]OM[facility] CWM FMStart: 12-01-2024 End: 55-58-2736Niscqme encounter izkhcdnxn70/21/2025 10:00 AM EST Office Visit [facility] [address] [facility] [place] [address] Krista Galeano PA [address] [facility] [address] [place] [address] NOM[facility] FB ORTHOPAEDICSStart: 11-14-2024 End: 84-89-7591Vunvomi encounter opfqbpkyw13/04/2025 10:00 AM EST Office Visit [facility] [address] [facility] [address] [place] [address] Sada Molina MD [address] [facility] [address] [place] [address] NOMS CI ENTStart: 11-07-2024 End: 82-25-4723Weunxow encounter znapahaaq16/28/2025 10:15 AM EST Office Visit [facility] B [address] [facility] [address] [place] [address] Quinten Figueroa MD [address] [facility] [address] [place] [address] [facility] SWS NEUR BStart: 11-03-2024 End: 05-22-8838Tmuhkqt encounter etyyjiphv37/24/2025 8:30 AM EST Office Visit [facility] [address] [place] [address] Krista Galeano PA [address] [facility] [address] [place] [address] NOMS FB ORTHOPAEDICSStart: 39-93-3027Cutktuc referralSelect [facility] [place] Work Phone: Start: 10-25-2024 End: 02-27-1934Stuihnr encounter xfevfjjnh73/15/2025 8:00 AM EST Office Visit [facility] [address] [place] [address] Daniel Sanchez NP [address] [place] [address] ArrivedNOMS CWM FMComment on above:ArrivedStart: 10-19-2024 End: 42-00-8059Nbxezwl encounter hjexrvihs02/09/2025 8:30 AM EST Office Visit [facility] [address] [place] [address] Daniel Sanchez NP [address] [place] [address] [facility]OM[facility] CWM FMStart: 10-10-2024 End: 21-97-5009ME Cervical spine 4 or 5 ViewsXR cervical spine complete 4 to 5 views Imaging Routine Degenerative disc disease, cervical Expected: 10/10/2024 (Approximate), Expires: 10/10/2025[facility] Work Phone: comment on above:Expected: 10/10/2024 (Approximate), Expires: 10/10/2025Start: 10-10-2024 End: 03-85-5974Dskmsys encounter gayuihkoh90/31/2024 12:00 PM EST Office Visit [facility] [address] [facility] [address] [place] [address] Bravo Goode, MANAGER OF INTERNATIONAL [address], [facility] [address] [place] [address] [facility] SWS NEUR BStart: 09-26-2024 End: 84-62-7213Ihyadzm encounter procedureNOMS CWM FMStart: 09-19-2024 End: 60-27-7025Qozbbt Work09/19/2024 10:00 AM EST Social Work [facility] [address] [place] [address] Ricarda Ty LSWNOMS FNR BHStart: 09-18-2024 End: 43-56-7052Thygsga encounter /09/2024 8:30 AM EST Office Visit [facility] [address] [facility] [address] [place] [address] Vera Niteo MANAGER OF INTERNATIONAL [address] [facility] [address] [place] [address] Cervical pain (Primary Dx); Cervical arthritisNOMS CI ORTHOPAEDICSComment on above:Cervical pain (Primary Dx); Cervical arthritisStart: 09-13-2024 End: 41-36-5937Arlenn Work09/13/2024 1:00 PM EST Social Work [facility] [address] [place] [address] Ricarda Ty LSWNOMS FNR BHStart: 09-05-2024 End: 38-04-2586Umakkbr encounter oglvzgfid61/26/2024 2:15 PM EST Office Visit [facility] [address] [facility] [address] [place] [address]-651-[address] Quinten Figueroa MD [address] [facility] [address] [place], [place] [phone] [facility] NEUR BStart: 09-01-2024 End: 08-31-7204Ddojlfqtl to same day surgery sbmuad1009/01/2024 12:30 PM EST - 09/01/2024 12:38 PM EST Surgery [facility] [address] [place] [address] Pb Prasad MD [address], [place] [phone] INJECTION BLOCK NERVE MEDIAL BRANCH RIGHT C3/4, 4/5 [71497 (CPT )][facility] ProceduresComment on above:INJECTION BLOCK NERVE MEDIAL BRANCH RIGHT C 3/4, 4/5 [22404 (CPT )]Start: 09-01-2024 End: 85-05-7381Zex dx/ther agt pvrt facet jt crv/thrc 1 levelINJECTION BLOCK NERVE MEDIAL BRANCH Cervical spondylosis without myelopathy 09/01/2024 12:30 PM ESTFREMONT PAINStart: 43-28-8133Trlzcbdwfi hospital visit by qcjfjjmop50/22/2024 12:30 PM EST Hospital Encounter [facility] [address] [place] [address] Pb Prasad MD [address], [place] [phone] [facility] ProceduresStart: 08-30-2024 End: 74-36-8965Hmqbwq WorkNOMS FNR BHComment on above:ArrivedStart: 08-18-2024 End: 21-27-4309Sedjwfnlt (Vitamin B12) [Mass/volume] in Serum or PlasmaVitamin B12 Lab Routine Anemia, unspecified type Expected: 08/18/2024 (Approximate), Expires: 08/18/2025[facility] Work Phone: Comment on above:Expected: 08/18/2024 (Approximate), Expires: 08/18/2025Start: 08-18-2024 End: 52-19-5611Wtjmeuev [Mass/volume] in Serum or PlasmaFerritin Lab Routine Anemia, unspecified type Expected: 08/18/2024 (Approximate), Expires: 08/18/2025 [facility] HealthcareComment on above:Expected: 08/18/2024 (Approximate), Expires: 08/18/2025Start: 08-18-2024 End: 67-93-2900Lbji + transferrin + TIBCIron + transferrin + TIBC Lab Routine Anemia, unspecified type Expected: 08/18/2024 (Approximate), Expires: 08/18/2025 [facility] HealthcareComment on above:Expected: 08/18/2024 (Approximate), Expires: 08/18/2025Start: 08-18-2024 End: 88-39-6317Yfczxekqwtf of occult blood in single stool specimenOccult blood x 1, stool Lab Routine Anemia, unspecified type Expected: 08/18/2024 (Approximate), Expires: 08/18/2025[facility] HealthcareComment on above:Expected: 08/18/2024 (Approximate), Expires: 08/18/2025Start: 08-16-2024 End: 50-91-2265Lxzdrk WorkNOMS FNR BHComment on above:ArrivedStart: 08-15-2024 End: 20-06-7260Bpbqukj encounter qevrapdvm23/05/2024 8:30 AM EST Office Visit [facility] [address] [place] [address] Denise Diehl, CORE MAKER-BLUE LEATHER SETTER [address] [place], [place] [address] [facility] ClinicStart: 08-14-2024 End: 07-83-7067Kyglugy encounter procedureNOMS CWM FMComment on above:Arrived Start: 08-09-2024 End: 42-31-3667Kxulbg WorkNOMS FNR BHComment on above:ArrivedStart: 08-08-2024 End: 26-95-8140Bspwcby encounter lrlfflzei74/29/2024 10:15 AM EDT Office Visit [facility] [address] [facility] [address] [place] [address] Quinten Figueroa MD [address] [facility] [address] [place] [address] [facility] SWS NEUR BStart: 08-04-2024 End: 85-81-4388Lxnobw WorkNOMS FNR BHComment on above:ArrivedStart: 08-02-2024 Urine cultureKeenan Private Hospitaltart: 39-31-7232Clilzpjv identified in Urine by CultureUrine [facility] Start: 07-28-2024 End: 42-53-2359Xkzqhi Work07/28/2024 8:00 AM EDT Social Work [facility] BH [address] [place] [address] Ricarda Ty LSWVALERIE FNR BHStart: 07-17-2024 End: 33-84-8185OTQ W Auto Differential panel - BloodCBC and differential Lab Routine Wellness examination Expected: 07/17/2024 (Approximate), Expires: 1 [facility]S HealthcareComment on above:Expected: 07/17/2024 (Approximate), Expires: 07/17/2025Start: 07-17-2024 End: 06-22-2629Pckfxdfzpgnxa metabolic 2000 panel - Serum or PlasmaComprehensive metabolic panel Lab Routine Wellness examination Expected: 07/17/2024 (Approximate), Expires: 07/17/2025[facility] HealthcareComment on above:Expected: 07/17/2024 (Approximate), Expires: 07/17/2025Start: 07-17-2024 End: 93-28-9065Tbcoprgtoi A1c/Hemoglobin.total in BloodHemoglobin A1c Lab Routine Wellness examination Expected: 07/17/2024 (Approximate), Expires: 07/17/2025[facility] HealthcareComment on above:Expected: 07/17/2024 (Approximate), Expires: 07/17/2025Start: 07-17-2024 End: 79-44-2869Vaxzx 1996 panel - Serum or PlasmaLipid panel Lab Routine Wellness examination Expected: 07/17/2024 (Approximate), Expires: 07/17/2025[facility] HealthcareComment on above:Expected: 07/17/2024 (Approximate), Expires: 07/17/2025Start: 07-17-2024 End: 48-44-0607IU Breast - bilateral ScreeningBilateral screening mammogram Imaging Routine Encounter for screening mammogram for malignant neoplasm of breast Expected: 07/17/2024, Expires: 09/16/2025NOMS HealthcareComment on above: Expected: 07/17/2024, Expires: 09/16/2025Start: 07-17-2024 End: 97-92-6121Yobkhbr encounter zxodupdrn49/07/2024 2:00 PM EDT Office Visit [facility] [address] [place] [address] Daniel Sanchez, ALFREDO [address] [place] [address] ArrivedNOIL CWM FMComment on above:ArrivedStart: 07-17-2024 End: 39-02-4535YHI W/REFLEX TO FT4TSH W/REFLEX TO FT4 Lab Routine Wellness examination Expected: 07/17/2024 (Approximate), Expires: 07/17/2025[facility] Work Phone: Comment on above:Expected: 07/17/2024 (Approximate), Expires: 07/17/2025Start: 07-14-2024 End: 81-95-4834Pybsvwios to same day surgery gkirwn5607/14/2024 2:35 PM EDT - 07/14/2024 2:42 PM EDT Surgery [facility] P rocedures [address] [place] [address] Pb Prasad MD [address] [place] [address] INJECTION BLOCK NERVE MEDIAL BRANCH BILATERALC3/4, C4/5 MBB [51242 (CPT )] [facility] ProceduresComment on above:INJECTION BLOCK NERVE MEDIAL BRANCH BILATERAL C3/4, C4/5 MBB [69617 (CPT )]Start: 07-14-2024 End: 04-40-6625Tmd dx/ther agt pvrt facet jt crv/thrc 1 levelINJECTION BLOCK NERVE MEDIAL BRANCH Cervical spondylosis without myelopathy 07/14/2024 2:35 PM EDTFREMONT PAINStart: 93-23-8404Hdpdbtlcuu hospital visit by orcdjyhgt16/04/2024 2:35 PM EDT Hospital Encounter [facility] [address] [place] [address] Pb Prasad MD [address] [place] [address] [facility] Pain ProceduresStart: 06-27-2024 End: 73-93-7239Rxkduml encounter zldtojgxa69/17/2024 1:30 PM EDT Office Visit [facility] [address] [place] [address] Denise Diehl, CORE MAKER-BLUE LEATHER SETTER [address] [place] [address] [facility] Management ClinicStart: 83-92-4115HYEQF-19 Vaccine ( season)COVID-19 Vaccine ( season)[facility] Start: 27-33-5088Toedzacbj [facility] HealthcareStart: 05-23-2024 End: 47-78-3667KC Cervical spine ViewsX-ray spine cervical 3 views or less Imaging Routine Chronic neck pain Expected: 05/23/2024, Expires: 05/23/2025 [employer] Work Phone: Comment on above:Expected: 05/23/2024, Expires: 05/23/2025Start: 34-36-1381Czjzqjstn for malignant neoplasm of breastMammogram [facility] HealthcareStart: 30-59-2838Fihjtclqfevrqz of varicella zoster vaccineZoster (Shingles) Vaccine (1 of 2)[facility] SystemStart: 07-32-4963Rownikubg for malignant neoplasm of cervixNOMS HealthcareStart: 50-27-7811Tgvefgfif for malignant neoplasm of cervixPap SmearNOMS HealthcareStart: 04-51-4331Ilqgp BMI Follow Up PlanAdult BMI Follow Up PlanKindred Hospital Lima SystemStart: 1975 Depression ScreeningDepression ScreeningProMercy Health St. [facility] SystemStart: 1965 Screening for malignant neoplasm of colonNOMS HealthcareComprehensive metabolic 2000 panel - Serum or PlasmaAvita Health System End: 41-71-8386HQ Cervical spine WO contrastMR cervical spine without contrast Imaging Routine Cervical radiculopathy 1 Occurrences starting 05/23/2024 until 05/23/2025[facility] SystemComment on above:1 Occurrences starting 05/23/2024 until 05/23/2025Patient referralSelect [facility] [place] [facility] Work Phone: XR Foot - right GE 3 ViewsAdventHealth Kissimmee Immunizations Immunization DateImmunizationNotesCare PcdbegcySnmhsuiy29-10-7567wbisdkucw virus vaccine, unspecified formulationMichael NILL [phone]-Nsnwq General Surgery Eqfcbmpr72-20-8575 Influenza, injectable, Madin Wilburn Canine Kidney, preservative free, quadrivalentLisa Roberthdarz MANAGER OF INTERNATIONAL Work Phone: NOCox Walnut LawnWpuqazsmvn90-21-6159ikmqgco toxoid, reduced diphtheria toxoid, and acellular pertussis vaccine, adsorbedSamantha Nienberg CORE MAKER-BLUE LEATHER SETTER Work Phone: [facility] HospitalAkmbjv84-34-7200pitokazay, injectable, quadrivalent, preservative freeLisa Aichholz MANAGER OF INTERNATIONAL Work Phone: [facility] WashingtonEktvjqydbs14-23-0287ADIF-EjQ-8 (COVID-19) mRNAMUL.ORD!p04522Llkpcwl NILL [phone]-QpczxMercy Health [facility]12-12-2021 SARS-CoV-2 (COVID-19) mRNA BNT-162b2 vaxMichael NILL [phone]-HayhxMercy Health [facility] Hospital11-16-2021 influenza, injectable, quadrivalent, preservative freeDenise Diehl CORE MAKER-BLUE LEATHER SETTER Work Phone: [facility] HospitalUafval34-47-6605JBHJ-HhD-0 (COVID-19) mRNA BNT-162b2 vaxMichael NILL [phone]-QrhhkOhiohealth Marion General Hospital BellevueComment on above: Result Comment: 2023-12-09: [id number]-LkY-1 (COVID-19) mRNA BNT-162b2 vaxMichael NILL [phone]-FxtfwOhiohealth Marion General Hospital BellevueComment on above: Result Comment: 2023-12-09: [id number], quadrivalent, recombinant, injectable influenza vaccine, preservative freeDenise Aggarwalenberg CORE MAKER-BLUE LEATHER SETTER Work Phone: [facility] HospitalNyqnzt02-74-0224yuxghewczkyu polysaccharide vaccine, 23 valentLisa Aichholz MANAGER OF INTERNATIONAL Work Phone: [facility] Payers DatePayer CategoryPayerPolicy [id number] (Managed Care)[facility] MEDIC[facility] [employer]VANTAGE [id number] Health [id number] 2018MedicareHUMANAMedicareHUMANA MEDICARE HUMANA MEDICARE [place] [id number] 2017-Present [phone] [place] [id number] 2018Medicare HMOHUMANA MEDICARE [id number] [id number] .1.827194.3.57[id number] 2..1.317795.3.579.2.22859-75-9242Eyzmndk78546317 2.1.529596.3.579.2.66596-63-0196Gcugsgm90193516 2.16.840.1.023317.3.579.2.95481-21-8015Rbfyhsn08426461 2.16840.1.408208.3.579.2.42600-67-9154Qgtglmz87355377 2.840.1.569146.3.579.2.645533-91-1606Tebljku62658054 2.840.1.043022.3.579.2.184550-89-7163Xhwdscd51853308 2.840.1.950774.3.579.2.398272-49-1316Wwimutb00148814 2..1.342471.3.579.2.154292-32-6388Wfkmbry09755488 2..1.090089.3.579.2.387117-65-5106Szjqapn57082049 2..1.045080.3.579.2.475518-61-3994Huzwwhm2047639 2..1.998738.3.579.2.523350-87-5630Zcdqquk2216187 2.0.1.253583.3.579.2.063872-10-0389Abgoexj7263155 2.0.1.327237.3.579.2.286419-08-4539Hiexcch2203030 2.840.1.048480.3.579.2.031260-51-5351Flvgtzt8096042 2..1.091354.3.579.2.978375-54-6971Cterdvi1387249 2.840.1.605553.3.579.2.629282-57-4686Qvurgdb6442285 2.840.1.694494.3.579.2.657689-79-9372Hybvgzk0549906 2.16.840.1.059602.3.579.2.349639-59-8553Xrvrqtq4365830 2.16.840.1.905852.3.579.2.663878-19-9650Gwwmyeu3206607 2.16.840.1.763214.3.579.2.607314-30-2998Ofbmaxi1470628 2.16840.1.865176.3.579.2.532654-54-2825Icbzdht8779076 2.16840.1.106410.3.579.2.265760-38-2120Qmlcwao3504501 2.840.1.761261.3.579.2.121218-33-3775Gowqgsq4518948 2.840.1.899588.3.579.2.828605-96-2058Vtemfwp0637370 2.840.1.879306.3.579.2.375313-76-0618Cernsnw3247923 2.840.1.511658.3.579.2.993573-67-1741Iushqqg1893659 2.840.1.654063.3.579.2.479327-68-5919Arpkacw4229621 2.840.1.716914.3.579.2.926454-65-6703Ajyfvut6803013 2.840.1.955556.3.579.2.349746-65-4296Nylolot315961563 2.840.1.331925.3.579.2.781207-04-2357Ymjcbgj600020153 2.840.1.799969.3.579.2.006025-01-5104Hbozguk785021944 2.16840.1.411103.3.579.2.161514-32-7838Hscsysd438157683 2.16.840.1.560895.3.579.2.109406-43-8698Uxdqgkr698028550 2.16.840.1.227137.3.579.2.039172-72-5195Iwplasb473361066 2..840.1.695514.3.579.2.620997-52-8417Mczriyd165874999 2..840.1.068796.3.579.2.472959-52-6485Nyxqfmq379025350 2..840.1.999066.3.579.2.197492-97-7553Bakmkiv427685432 2..840.1.162848.3.579.2.489908-78-8021Boidhys33266245 2.0.1.283529.3.579.2.491102-07-9361Pwainez57191469 2..840.1.007380.3.579.2.394687-93-2594Oprtgze19446090 2..840.1.770627.3.579.2.536428-85-2704Ipozkrg78905389 2.840.1.006621.3.579.2.1286 [id number] 07k20z32-t03m-2hrn-roqz-0c68lh85t675Iynxyqy34795825 2.840.1.828966.3.579.2.119Jyzkzbd03691371 2.840.1.761255.3.579.2.531 Social History DateTypeDetailFacilityStart: 02-01-2024 End: 69-97-4195Joknczm smoking statusNever smoked tobacco (finding)[facility] BellevueTobacco smoking statusNeverFisher-ArpitPetaluma Valley Hospitaltart: 05-17-2024 End: 52-80-6455Hni Assigned At [facility] SouthparkFeNorwalk Memorial Hospitaltart: 02-03-2023 End: 52-70-7461Zxbpotw use and exposureSmokeless tobacco non-userNOMS Healthcare Start: 05-17-2024 End: 79-73-9080Xeoyuzpxw beverage intakeCurrent drinker of alcohol (finding)[facility] HealthcareStart: 05-17-2024 End: 13-47-9133Rqmyuqv of Social functionKindred Hospital Lima SystemStart: 55-19-4984Xnj assigned at birthFeMcLean Hospital HealthcareStart: 46-82-2513Pkpuob identityIdentifies as female gender (finding)[facility] HealthcareStart: 46-42-5790Epg assigned at birthNot on fileKindred Hospital Lima SystemStart: 05-16-2015 End: 95-72-7870PeoXbrjhk (finding)[facility] Hospitaltart: 05-23-2024 End: 41-75-8098Rhojhxkfc beverage intakeCurrent non-drinker of alcohol (finding) [facility] SystemStart: 03-80-7291Rigzkxo CommentsocialKindred Hospital Lima SystemStart: 68-68-5780Qkubiacue beverage intakeEx-drinker (finding)[facility] Goals DatePatient GoalDesired Activity/StatePersonal health goalComment on above: Evaluation of progress towards goal: snf Functional Status EzrlNsakdvpmyaFsllooOlnvkexu10-79-3051Loptbdotrb StatusN/AFcherylMercy Medical Center Clinical Notes 02-01-2024 to 06-27-2025 Note Date & UfasWtndOrlvfouy11-46-6618 Evaluation note* Diagnosis Onset Date Resolution Status Admit Date Concussion acuteSeptember 2024 8:07amHeadache, chronic migraine without aura, intractableacuteSeptember 2024 8:07amAcute sinusitisacuteOctober 2024 2:33pmEssential hypertensionacuteOctober 2024 2:33pmGAD (generalized anxiety disorder)acuteOctober 2024 2:33pmGERD with stricture without esophagitisacuteOctober 2024 2:33pmHypothyroidismacuteOctober 2024 2:33pmMixed hyperlipidemiaacuteOctober 2024 2:33pm [facility] [place] [facility] Work Phone: 1(672) 483-162809-17-2025 Evaluation note* Diagnosis Onset Date Resolution Status [...] 2024 9:30amUTI (urinary tract infection)acuteNovember 2024 9:30am [facility] [place] [facility] Work Phone: 1(150) 261-338909-16-2025 History of Present illness Narrative* Quinten Figueroa [...] M79.12 Follow Up as previously Procedure Codes 20984 X1 -50 ............ Inj Trigger Point, 1 or 2 Muscles A4206 x2 ............ 1 CC sterile syringe&needle J1100 x8 40910-659-72 dexamethasone J2003 x2 1210-3431-21 lidocaine 1% inj (Hospira, 1%, 30 mL, white label blue border) J2001 x2 [address]-3 lidocaine 1% inj (Huons, 1%, 5 mL, cream label green border) J1885 x2 39220-092-97 ketorolac 15 mg (small 1 mL bottles) Quinten Figueroa M.D. [facility] ? [address] ? [place] [address] ? ? fax Neurology ? Clinical Neurophysiology [...] M79.10 Follow Up as previously Procedure Codes 36194 X1 ............ Inj Trigger Point, 1 or 2 Muscles 71171 X1 ............ Inj Trigger Point, 3+ Muscles A4206 x2 ............ 1 CC sterile syringe&needle J1100 x8 40528-285-15 dexamethasone J2003 x2 9416-4707-02 lidocaine 1% inj (Hospira, 1%, 30 mL, white label blue border) J2001 x2 [address]-2 lidocaine 1% inj (Huons, 1%, 5 mL, cream label green border) J1885 x2 50925-242-94 ketorolac 15 mg (small 1 mL bottles) Quinten Figueroa M.D. [facility] ? [address] ? [place], [place] [address] ? ? fax Neurology ? Clinical Neurophysiology ? Epilepsy ? Sleep Disorders ? Clinical Informatics documented in this encounterMercy Hospital WashingtonEthrcwprjp86-92-8853 History of Present illness Narrative* NELSON Bonilla [...] RAN INTO WALL WHILE VISITING HER AT [facility] (EST PT, NEW PROBLEM) LT SHOULDER PAIN XRAY TODAY EPIC 06/05/25 PAIN UP NECK ON LT SIDE WELL. RADIATES DOWN ARM. PAIN DIFFUSE IN SHOULDER, STATES IT FEELS LIKE BONE ON BONE. +TYL. +HEAT. TIGHTNESS. DENIES N/T. STATES SHE STILL HAS HER DRAFTER CASTINGS. Shoulder Musculoskeletal Exam Inspection Left Left shoulder [...] positive Supraspinatus: negative Painful arc test: positive Biceps/marko Signs [place]'s test: negative Clicking/popping: negative General Constitutional: appears [...] neurovascular intact s/p injection. . ( Codes 17467) Procedure, treatment alternatives, risks and benefits explained, [...] requiring urgent evaluation. Visit was preformed using [employer]-ship harbor pilot speech recognition. documented in this encounterMercy Hospital WashingtonUhopjeitoc53-30-9397 Telephone encounter Note* Telephone Encounter - Shelton Pennington - 05/29/2025 3:59 PM EDT Patient scheduled SHAMAR on 06/26/25--No annual deductible--35.00 co-pay will be due at visit--patient is aware t bring 35.00 co-pay to visit. [facility] WashingtonQooequlrav83-90-9943 Miscellaneous Notes* Telephone Encounter - Shelton Pennington - 05/29/2025 3:59 PM EDT Patient scheduled SHAMAR on 06/26/25--No annual deductible--35.00 co-pay will be due at visit--patient is aware t bring 35.00 co-pay to visit. documented in this encounterMercy Hospital WashingtonOoehzxwfnb05-47-5989 History of Present illness Narrative* Quinten Figueroa [...] Weight difficult to control. Circad In bed 6973-0416. Falls asleep 1 h. 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 Per XRs arising from diploic space, expanding the inner & outer tables. Onset Semeiology Imaging MR brain (06/2019, [facility]) - craniotomy R par; scattered ^T2/FLAIR . . . . (02/2016, [facility]) - old craniotomy R par; minor scattered ^T2/FLAIR [facility] - no aneurysm Testing Surgery Craniostomy + [...] tip and replace cap. 48 mL 1 Sqelzmhfvwv-Ixkdflbou-Ewupkw (Trelegy Ellipta) 100-62.5-25 MCG/ACT aerosol powder Inhale [...] M.D. [facility] ? [address] [facility] [address] ? [place] [address] ? ? fax Neurology ? Clinical Neurophysiology ? Epilepsy ? Sleep Disorders ? Clinical Informatics documented in this encounterMercy Hospital WashingtonMsnakdhsat59-73-9938 History of Present illness Narrative* NELSON Bonilla [...] RAN INTO WALL WHILE VISITING HER AT [facility] Shoulder Musculoskeletal Exam Inspection Right Right shoulder [...] neurovascular intact s/p injection. . ( Codes 56448-RT) Procedure, treatment alternatives, risks and benefits explained, [...] requiring urgent evaluation. Visit was preformed using [employer]-ship harbor pilot speech recognition. documented in this encounterMercy Hospital WashingtonZtcfjmergt41-76-4937 History of Present illness Narrative* Jacque Daniel [...] After use, clean tip and replace cap. Soezgyusabg-Mdbzmkrtm-Qigdan (Trelegy Ellipta) 100-62.5-25 MCG/ACT aerosol powder 1 [...] Use albuterol prn 8 weeks Relevant Medications Fsumnawjcso-Svlpmjuaj-Ltvrjz (Trelegy Ellipta) 100-62.5-25 MCG/ACT aerosol powder * Jacque Daniel NP - 05/07/2025 6:23 AM EDTAssociated Problem(s): Hypothyroidism Currently taking levothyroxine Check labs yearly, prn dose changes and changes in sxs * Jacque Daniel NP - 05/07/2025 6:23 AM EDTAssociated Problem(s): Asthma (HCC) (Resolved 05/07/2025) Current med: albuterol prn Flares with bad colds, and season changes, Minimal use documented in this encounterMercy Hospital WashingtonDnmlcopclo85-94-0014 Telephone encounter Note* Telephone Encounter - Shelton Pennington - 04/24/2025 11:09 AM EDT Patient same day canceled, appt was @ 10:45 she called at 11:00. She RS to 05/29/25 [facility] WashingtonOifhhwegom03-79-6160 Miscellaneous Notes* Telephone Encounter - Shelton Pennington - 04/24/2025 11:09 AM EDT Patient same day canceled, appt was @ 10:45 she called at 11:00. She RS to 05/29/25 documented in this encounterMercy Hospital WashingtonMzbbldxlyj81-76-2860 History of Present illness Narrative* NELSON Arreaga - 02/08/2025 8:15 AM EDT [facility] [address], [place] [address] Patient: Autumn Brandt Sex: female : 1965 Age: 59 y.o. PCP: Daniel Sanchez, CORE MAKER-BLUE LEATHER SETTER 02/08/2025 Autumn Brandt is here for a(n) [...] Neck Pain HPI: July-August 2024 PT completed [facility] no relief 07/14/24 Bilateral C 3/4 [...] and burning (sharp, shooting pain to right shinto). The pain is at a severity of [...] Diagnosis Date Anxiety Asthma Brain tumor (benign) ([facility]) Carpal tunnel syndrome Chronic pain neck and back Coronary artery disease Depression GERD (gastroesophageal reflux disease) Headache(784.0) High cholesterol Hypertension Hypothyroidism Migraine Neck pain Neurologic abnormality New onset seizure ([facility]) 06/29/2019 Sleep apnea 2019 Past Surgical History: Procedure Laterality Date CARPAL TUNNEL RELEASE Bilateral CARPAL TUNNEL RELEASE Bilateral 2002,2003 CRANIOTOMY Right parietal, for benign tumor ESOPHAGOGASTRODUODENOSCOPY N/A 03/02/2023 Performed by Jaswant Gibbons DO at [facility] INJECTION BLOCK NERVE MEDIAL BRANCH BILAT C 3/4, 4/5 Bilateral 07/14/2024 Performed by Pb Prasad MD at [facility] INJECTION BLOCK NERVE MEDIAL BRANCH RIGHT C 3/4, 4/5 Right 09/01/2024 Performed by Pb Prasad MD at [facility] INJECTION SPINE TRANSFORAMINAL: right C 5,6 Nroot Right 01/12/2025 Performed by Pb Prasad MD at [facility] RADIO FREQUENCY ABLATION - Right C2/3, C3/4 RFA Right 03/12/2017 Performed by Pb Prasad MD at [facility] RADIOFREQUENCY ABLATION SPINAL RIGHT C 3/4, 4/5 Right 10/20/2024 Performed by Pb Prasad MD at [facility] REDUCTION MAMMAPLASTY Bilateral 10/11/2006 SPINAL CORD [...] the above service. Jacque Lanza CNA 02/08/25 4583 NELSON Arreaga 02/08/25 7476 documented in this encounterDunlap Memorial Hospital04-29-2025 History of Present illness Narrative* Jacque [...] (Augmentin) 875-125 MG tablet documented in this encounterMercy Hospital WashingtonJddjmqgmue56-56-3013 History of Present illness Narrative* Bravo Goode [...] affordable Consider EMG BUE documented in this encounterMercy Hospital WashingtonAhviizdmoo10-34-0635 History of Present illness Narrative* Jacque Daniel [...] [facility] [place] * Jacque Daniel NP - 01/09/2025 6:30 [...] your RICHA: Dr Figueroa documented in this [facility]04-01-2025 Instructions* Patient Instructions* Jacque Daniel NP - 01/09/2025 9:40 AM EDT We will try fluticasone nasal spray, add loratadine (claratin) 10mg daily Get fasting labs completed as well documented in this [facility]03-25-2025 History of Present illness Narrative* NELSON Arreaga - 01/02/2025 9:15 AM EDT [facility] [address] [place] [address] Patient: Autumn Brandt Sex: female : 1965 Age: 59 y.o. PCP: Daniel Sanchez APRN-BLUE LEATHER SETTER 01/02/2025 Autumn Brandt is here for a(n) follow up. Date of onset of pain: 2005 , pain has lasted greater than 3 months. Chief Complaint Patient presents with Neck Pain HPI: July-August 2024 PT completed [facility] no relief 07/14/24 Bilateral C 3/4 [...] Diagnosis Date Anxiety Asthma Brain tumor (benign) ([facility]) Carpal tunnel syndrome Chronic pain neck and back Coronary artery disease Depression GERD (gastroesophageal reflux disease) Headache(784.0) High cholesterol Hypertension Hypothyroidism Migraine Neck pain Neurologic abnormality New onset seizure ([facility]) 06/29/2019 Sleep apnea 2020 Past Surgical History: Procedure Laterality Date CARPAL TUNNEL RELEASE Bilateral CARPAL TUNNEL RELEASE Bilateral 2002,2003 CRANIOTOMY Right parietal, for benign tumor ESOPHAGOGASTRODUODENOSCOPY N/A 03/02/2023 Performed by Jaswant Gibbons DO at [facility] INJECTION BLOCK NERVE MEDIAL BRANCH BILAT C 3/4, 4/5 Bilateral 07/14/2024 Performed by Pb Prasad MD at [facility] INJECTION BLOCK NERVE MEDIAL BRANCH RIGHT C 3/4, 4/5 Right 09/01/2024 Performed by Pb Prasad MD at [facility] RADIO FREQUENCY ABLATION - Right C2/3, C3/4 RFA Right 03/12/2017 Performed by Pb Prasad MD at [facility] RADIOFREQUENCY ABLATION SPINAL RIGHT C 3/4, 4/5 Right 10/20/2024 Performed by Pb Prasad MD at [facility] REDUCTION MAMMAPLASTY Bilateral 10/11/2006 SPINAL CORD [...] NELSON Arreaga 01/02/25 1237 documented in this encounterDunlap Memorial Hospital03-05-2025 History of Present illness Narrative* NELSON [...] RAN INTO WALL WHILE VISITING HER AT [facility] ALLERGIES: Allergies Allergen Reactions Ketorolac Hallucinations and [...] is recommended she continue treatment with her manufacturing engineer paint to discus s additional treatment options. She [...] for requiring urgent evaluation. documented in this [facility]02-26-2025 Telephone encounter Note* Telephone Encounter - Micaela Hernandez MA - 12/06/2024 2:21 PM EST You restarted pt on zolpidem at 06/06/24 appt. [facility] Zdvpxliige38-63-5046 Miscellaneous Notes* Telephone Encounter - Micaela Hernandez MA - 12/06/2024 2:21 PM EST You restarted pt on zolpidem at 06/06/24 appt. documented in this [facility]02-18-2025 History of Present illness Narrative* Denise Diehl APRN-BLUE LEATHER SETTER - 11/28/2024 7:45 AM EST [facility] [address] [place] [address] Patient: Autumn Brandt Sex: female : 1965 Age: 59 y.o. PCP: Daniel Sanchez APRN-BLUE LEATHER SETTER 11/28/2024 Autumn Brandt is here for a(n) [...] her neck. He referred her to Dr. Michel to evaluate her right shoulder. She had [...] Neck Pain HPI: July-August 2024 PT completed [facility] no relief 07/14/24 Bilateral C 3/4 [...] Diagnosis Date Anxiety Asthma Brain tumor (benign) ([facility]) Carpal tunnel syndrome Chronic pain neck and back Coronary artery disease Depression GERD (gastroesophageal reflux disease) Headache(784.0) High cholesterol Hypertension Hypothyroidism Migraine Neck pain Neurologic abnormality New onset seizure ([facility]) 06/29/2019 Sleep apnea 2020 Past Surgical History: Procedure Laterality Date CARPAL TUNNEL RELEASE Bilateral CARPAL TUNNEL RELEASE Bilateral 2002,2003 CRANIOTOMY Right parietal, for benign tumor ESOPHAGOGASTRODUODENOSCOPY N/A 03/02/2023 Performed by Jaswant Gibbons DO at [facility] INJECTION BLOCK NERVE MEDIAL BRANCH BILAT C 3/4, 4/5 Bilateral 07/14/2024 Performed by Pb Prasad MD at [facility] INJECTION BLOCK NERVE MEDIAL BRANCH RIGHT C 3/4, 4/5 Right 09/01/2024 Performed by Pb Prasad MD at [facility] RADIO FREQUENCY ABLATION - Right C2/3, C3/4 RFA Right 03/12/2017 Performed by Pb Prasad MD at [facility] RADIOFREQUENCY ABLATION SPINAL RIGHT C 3/4, 4/5 Right 10/20/2024 Performed by Pb Prasad MD at [facility] REDUCTION MAMMAPLASTY Bilateral 10/11/2006 SPINAL CORD [...] BAYLEE Urena 11/28/24 0830 documented in this encounterThe [facility]woodsOxford [facility] [id number] Telephone encounter Note* Telephone Encounter - Bravo Goode NP - 11/21/2024 11:02 AM EST Looks like her insurance will cover [employer], Ubrel[employer] or Qulipta. Will send [employer] NOMS [id number] Miscellaneous Notes* Telephone Encounter - Bravo Goode [...] ableto use co-pay card. documented in this encounterNOCox Walnut LawnQuhdmqxxcq95-21-2077 Telephone encounter Note* Telephone Encounter - Erna Squires MA - 11/21/2024 10:40 AM EST Pt called and said her Aimovig 140 was over $300 due to new deductible and she cannot afford that and is asking for something in place. Pt has deducible plan and [employer] is medicare so she is not ableto use co-pay card. [facility] [id number] History of Present illness Narrative* Quinten Figueroa MD - 11/07/2024 10:15 AM ESTAssociated Problem(s): RICHA (obstructive sleep apnea) Pt needs new humidifier reservoir. Possibly needs new machine, current one is ~10 y old. 2020 note suggests DME is [facility] [place]. *REMINDER* - check that parts or machine [...] y old. 2020 note suggests DME is [facility] [place]. *REMINDER* - check that parts or machine [...] in about 3 months (around 02/05/2025), or MANAGER OF INTERNATIONAL. History of Present Illness, Associated Treatments and [...] Circad Schedule very disrupted. May sleep only [id number] wide awake. Does not nap. Noct oxim [...] slides of the skull were reviewed at [facility] 09/1996, felt to be giant cell [...] Neurology ? [address] ? [place], [place] [address] ? ? fax Neurology ? Clinical Neurophysiology ? Epilepsy ? Sleep Disorders ? Clinical Informatics documented in this encounterMercy Hospital WashingtonMdffybmvsu28-34-3705 History of Present illness Narrative* NELSON Bonilla - 11/03/2024 8:30 AM EST Images from the original note were not included. HISTORY OF PRESENT ILLNESS: EST PT Autumn Brandt is an 59 y.o. @ female. EST PT WITH YUMIKO WITH NEW PROBLEM RT SHOULDER PAIN ~08/2024- PT STATES SHE SLIPPED AND FELL AND RANINTO WALL WHILE VISITING HER AT [facility]- RECENTLY SEEN FOR NECK PAIN AND REFERRED [...] for requiring urgent evaluation. documented in this encounterMercy Hospital WashingtonZntdswvard96-04-6313 Telephone encounter Note* Telephone Encounter - Thi Alexander MA - 11/01/2024 11:01 AM EST She is taking the Atorvastatin, she also would like to see an ENT , having issues with nose bleeds like crazy. [facility] Mtokuveyrd65-98-7343 Miscellaneous Notes* Telephone Encounter - Thi Alexander MA - 11/01/2024 11:01 AM EST She is taking the Atorvastatin, she also would like to see an ENT , having issues with nose bleeds like crazy. documented in this [facility]01-15-2025 History of Present illness Narrative* Daniel Sanchez [...] it any longer Has been following with [facility] for therapy/counseling. Denies SI/HI; Would like to go back on Effexor today. Will restart at 75mg. Re-evaluate in 6 weeks. * Daniel Sanchez NP - 10/25/2024 8:00 AM EST Images from the original note were not included. Subjective Patient ID: Autumn Brandt is a 59 y.o. female who presents for Follow-up. HPI Specialists: Neurology- Dr. Figueroa, VALERIE HUGHES- Denise Diehl APRN, SPECIFICATION MANAGER-Rani [facility] HTN: Currently taking verapamil 120mg Checks [...] it any longer Has been following with [facility] for therapy/counseling. Denies SI/HI; Would like to [...] MG 24 hr capsule documented in this [facility]01-15-2025 Instructions* Patient Instructions* Daniel Sanchez NP - 10/25/2024 8:00 AM EST STOP verapamil. Continue to monitor BP once daily. Bring log with you to next OV. documented in this [facility]12-31-2024 History of Present illness Narrative* Bravo Goode [...] somewhere. Try a humidifier in [place] * rBavo Goode NP - 10/10/2024 12:00 PM ESTAssociated Problem(s): Family history of cerebral aneurysm Plan CTA head 2028. * Bravo Goode NP - 10/10/2024 12:00 PM ESTAssociated Problem(s): RLS (restless legs syndrome) Consider SL B12. - PCP managing documented in this [facility]12-16-2024 Telephone encounter Note* Telephone Encounter - Thi Alexander MA - 09/25/2024 2:11 PM EST CHIN:08/14/2024 NOV:11/08/2024 [facility] WashingtonDlbnsrrpnp29-27-0016 Miscellaneous Notes* Telephone Encounter - Thi Alexander MA - 09/25/2024 2:11 PM EST CHIN:08/14/2024 NOV:11/08/2024 documented in this [facility]12-11-2024 Telephone encounter Note* Telephone Encounter - Nguyễn Garcia - 09/20/2024 11:14 AM EST Autumn would like a call when you have a moment please , [facility] [id number] Miscellaneous Notes* Telephone Encounter - Nguyễn Garcia - 09/20/2024 11:14 AM EST Autumn would like a call when you have a moment please , documented in this encounterMercy Hospital WashingtonTcxdahhwfv86-76-6264 History of Present illness Narrative* Vera Schrader Emilia, MANAGER OF INTERNATIONAL - 09/18/2024 8:30 AM EST Images from the original note were not included. Subjective Patient ID: Autumn Brandt is a 58 y.o. female. RT sided neck pain x 5 months (04/2024), tripped in her yard and fell. Has been tx by [facility] pain management since 05/23/24 with XR, MRI, PT at [facility], Bilateral C3/4 4/5 Facet Injection/Medial Branch [...] IBU, meloxicam (no longer taking), TYL, XR [facility] 06/08/24, MRI [facility] 06/14/24, PT at [facility], HEP, Bilateral C3/4 4/5 Facet Injection/Medial Branch Block 07/14/24, Right C3/4, 4/5 Facet Injection/Medial Branch Block 09/01/24 Here with , Gilson Power I did not exam patient today, she was having a lot of pain. Would recommend she see neurosurgery. I reviewed the xrays of the c-spine done at [facility] on 06/08/24 reveals B/L facet arthritis. I reviewed the MRI of the c-spine done on 06/14/24 at [facility] reveals Notable asymmetric right C3-C4 posterior facet [...] with him,f/U prn [facility] documented in this encounterMercy Hospital WashingtonQxiaylwedp92-24-2483 History of Present illness Narrative* Daniel Sanchez [...] Acute cystitis without hematuria Was seen at [facility] on 08/02/2024 for UTI symptoms. Was [...] complaint on file.. HPI Was seen at [facility] on 08/02/2024 for UTI symptoms. Was [...] without hematuria - Primary Was seen at [facility] on 08/02/2024 for UTI symptoms. Was [...] Objective Physical Exam Assessment/Plan documented in this encounterMercy Hospital WashingtonDsnruguuzg62-45-2308 History of Present illness Narrative* Denise Diehl, MEGAN-BLUE LEATHER SETTER - 08/15/2024 8:30 AM EST [facility] [address] [place] [address] Patient: Autumn Brandt Sex: female : 1965 [...] HPI: PT July 2024 5 visits completed [facility] no relief 07/14/24 Bilateral C 3/4 [...] Diagnosis Date Anxiety Asthma Brain tumor (benign) ([facility]) Carpal tunnel syndrome Chronic pain neck and back Coronary artery disease Depression GERD (gastroesophageal reflux disease) Headache(784.0) High cholesterol Hypertension Hypothyroidism Migraine Neck pain Neurologic abnormality New onset seizure ([facility]) 06/29/2019 Sleep apnea 2019 Past Surgical History: Procedure Laterality Date CARPAL TUNNEL RELEASE Bilateral CARPAL TUNNEL RELEASE Bilateral 2002,2003 CRANIOTOMY Right parietal, for benign tumor ESOPHAGOGASTRODUODENOSCOPY N/A 03/02/2023 Performed by Jaswant Gibbons DO at [facility] INJECTION BLOCK NERVE MEDIAL BRANCH BILAT C 12/12, 4/ Bilateral 07/14/2024 Performed by Pb Prasad MD at [facility] PAIN RADIO FREQUENCY ABLATION - Right C2/3, C3/4 RFA Right 03/12/2017 Performed by Pb Prasad MD at [facility] PAIN REDUCTION MAMMAPLASTY Bilateral 10/11/2006 SPINAL CORD [...] BAYLEE Urena 08/15/24 0903 documented in this encounterDunlap [facility] Hospital11-05-2024 Instructions* Patient Instructions* Jacque Lanza CNA [...] the nearest emergency room. documented in this encounterDunlap Memorial Hospital11-04-2024 Instructions* Patient Instructions* Daniel Sanchez NP - 08/14/2024 4:00 PM EST FASTING labs ordered. Nothing to eat or drink for 12 hours prior to blood draw. Water and black coffee ok. documented in this encounterMercy Hospital WashingtonUzodvrvcoz50-49-6748 Evaluation note* Diagnosis Onset Date Resolution Status Admit Date UTI (urinary tract infection) acuteOctober 2023 2:34pmViral URI with coughacuteDecember 2023 5:09pm Neck painacuteJanuary 2024 1:33pm [facility] Work Phone: 1(601) 562-511310-14-2024 Telephone encounter Note* Telephone Encounter - Eva Mcfadden - 07/24/2024 5:47 PM EDT 35.00 co pay with unlimited visits No deductible Out of pocket is 4500 and 932.84 is met Checked on availity Scheduled with Ricarda Ty [facility] WashingtonSidpupiqqw40-47-5419 Miscellaneous Notes* Telephone Encounter - Eva Mcfadden - 07/24/2024 5:47 PM EDT 35.00 co pay with unlimited visits No deductible Out of pocket is 4500 and 932.84 is met Checked on availity Scheduled with Ricarda Ty documented in this encounterMercy Hospital WashingtonZchuctiyio03-39-5053 History of Present illness Narrative* Daniel Sanchez [...] a 58 y.o. female who presents for [facility] Care. HPI Specialists: Neurology- Dr. Figueroa, VALERIE Estrada PM- Denise Diehl, MEGAN, SPECIFICATION MANAGER-C [facility] HTN: Currently taking verapamil 120mg Checks [...] day. Consider tracking your food intake on My2-ObserveinessPal or LoseIt Water: Increase water intake; GOAL [...] establish care - Primary documented in this encounterMercy Hospital WashingtonIysqmjgiyw27-05-9326 Instructions* Patient Instructions* Daniel Sanchez NP - [...] of sleep per night. documented in this encounterMercy Hospital WashingtonCixubdudaq97-90-4246 Miscellaneous Notes* Telephone Encounter - Mary Piña [...] be educated on exercises. documented in this encounterDunlap Memorial Hospital10-02-2024 Telephone encounter Note* Telephone Encounter - Mray Piña RN - 07/12/2024 1:17 PM EDT [...] that she can be educated on exercises. [facility]09-17-2024 History of Present illness Narrative* Denise Bassett Jamey, CORE MAKER-BLUE LEATHER SETTER - 06/27/2024 1:30 PM EDT [facility] [address] [place] [address] Patient: Autumn Brandt Sex: female : 1965 Age: 58 y.o. PCP: Mike Burkett, CORE MAKER-BLUE LEATHER SETTER 06/27/2024 Autumn Brandt is here for a(n) [...] Neck pain Neurologic abnormality New onset seizure ([facility]) 06/29/2019 Sleep apnea 2020 Past Surgical History: Procedure Laterality Date CARPAL TUNNEL RELEASE Bilateral CARPAL TUNNEL RELEASE Bilateral 2002,2003 CRANIOTOMY Right parietal, for benign tumor ESOPHAGOGASTRODUODENOSCOPY N/A 03/02/2023 Performed by Jaswant Gibbons DO at [facility] RADIO FREQUENCY ABLATION - Right C2/3, C3/4 RFA Right 03/12/2017 Performed by Pb Prasad MD at [facility] PAIN REDUCTION MAMMAPLASTY Bilateral 10/11/2006 SPINAL CORD [...] BAYLEE Urena 06/27/24 1537 documented in this encounterDunlap Memorial Hospital09-17-2024 Instructions* Patient Instructions* Jacque Lanza CNA [...] the nearest emergency room. documented in this encounterSouthwestern Vermont Medical CenterMinco [facility] Labs09-09-2024 Miscellaneous Notes* Telephone Encounter - Denise Diehl [...] 1:28 PM EDT MRI results faxed to [facility] via [employer] and fax machine. Batch Plant Supervisor spoke with Yodit who states that Gisel Sandoval CNP is no longer practicing at that office. Patient's PCP is now Shira Concepcion PA-C. Confirmed faxnumber with Yodit and informed her that the MRI report has been faxed to their office. documented in this encounterThe Surgical Hospital at SouthwoodsKing Cayuga Vodka Ins[facility] Surgical HospitalLnptll05-33-8706 Telephone encounter Note* Telephone Encounter - BAYLEE Urena - 06/19/2024 1:28 PM EDT Please forward MRI to patient's pcp for further evaluation and management of incidental finding: Fenestrated left proximal vertebral artery, one of the limbs has a high engagement, entering the transverse foramen at the C5 level [series 9 image #19]. Thank you! [facility] Work Phone: 1(674) 937-356209-09-2024 Telephone encounter Note* Telephone Encounter - Mary Piña RN - 06/19/2024 1:28 PM EDT MRI results faxed to [facility] via [employer] and fax machine. Batch Plant Supervisor spoke with Yodit who states that Gisel Sandoval CNP is no longer practicing at that office. Patient's PCP is now Shira Concepcion PA-C. Confirmed faxnumber with Yodit and informed her that the MRI report has been faxed to their office. [facility] [id number] History of Present illness Narrative* Quinten Figueroa [...] Circad Schedule very disrupted. May sleep only 3654-3480 wide awake. Does not nap. 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 Per XRs arising from diploic space, expanding the inner & outer tables. Onset [facility] MR brain (06/2019, [facility]) - craniotomy R par; scattered ^T2/FLAIR . . . . (02/2016, [facility]) - old craniotomy R par; minor scattered ^T2/FLAIR CTA head (01/2024, [facility] - no aneurysm Testing Surgery Craniostomy + [...] M.D. Quinten Figueroa M.D. documented in this encounterMercy Hospital WashingtonYhbmtscnnq97-51-7891 History of Present illness Narrative* Denise Diehl APRN-BLUE LEATHER SETTER - 05/23/2024 8:30 AM EDT [facility] [address] [place] [address] Patient: Autumn Brandt Sex: female : 1965 Age: 58 y.o. PCP: Mike Burkett APRN-BLUE LEATHER SETTER 05/23/2024 Autumn Brandt is here for a(n) [...] Diagnosis Date Anxiety Asthma Brain tumor (benign) ([facility]) Carpal tunnel syndrome Chronic pain neck and back Coronary artery disease Depression GERD (gastroesophageal reflux disease) Headache(784.0) High cholesterol Hypertension Hypothyroidism Migraine Neck pain Neurologic abnormality New onset seizure ([facility]) 06/29/2019 Sleep apnea 2020 Past Surgical History: Procedure Laterality Date CARPAL TUNNEL RELEASE Bilateral CARPAL TUNNEL RELEASE Bilateral 2002,2003 CRANIOTOMY Right parietal, for benign tumor ESOPHAGOGASTRODUODENOSCOPY N/A 03/02/2023 Performed by Jaswant Gibbons DO at [facility] RADIO FREQUENCY ABLATION - Right C2/3, C3/4 RFA Right 03/12/2017 Performed by Pb Prasad MD at [facility] PAIN REDUCTION MAMMAPLASTY Bilateral 10/11/2006 SPINAL CORD [...] BAYLEE Urena 05/23/24 0942 documented in this encounterDunlap Memorial Hospital04-23-2024 NoteChief Complaint consultation for colonoscopy HPI [...] tab(s), Oral, Daily ve (more content not included)...[facility] HospitalComment on above: Result Comment: Electronically Signed By: MOUNA BENITEZ, Jaswant Mccain\Date and Time Signed: 02/01/24 13:58 EDTEvaluation + Plan note No data available for this section [facility] General Surgery [place] Evaluation note* Diagnosis Encounter to establish care- [...] Resolution Status UTI (urinary tract infection) acute [facility] Work Phone: Evaluation noteNo assessment information available [facility] Work Phone: Evaluation note* Diagnosis Migraine with aura, intractable, with status migrainosus (CMS/HCC)- Primary Family history of cerebral aneurysm Family history of other cardiovascular diseases Migraine with aura, intractable, with status migrainosus (CMS/HCC)- Primary Brain tumor ([facility]) Neoplasm of unspecified nature of brain Family [...] Chronic rhinitis- Primary documented in this encounter [facility] HealthcareEvaluation note* Diagnosis Migraine with aura, intractable, with status migrainosus (CMS/HCC)- Primary Insomnia, psychophysiological RLS (restless legs syndrome) Restless legs syndrome (RLS) Family history of cerebral aneurysm Family history of other cardiovascular diseases RICHA (obstructive sleep apnea) Obstructive sleep apnea (adult) (pediatric) Poor sleep hygiene Other specific disorder of sleep of nonorganic origin documented in this encounter [facility] HealthcareEvaluation note* Diagnosis Migraine with aura, intractable, [...] hypertension Wellness examination documented in this encounter [facility] HealthcareEvaluation note* Diagnosis Migraine with aura, intractable, [...] migrainosus (CMS/HCC)- Primary documented in this encounter [facility] HealthcareEvaluation note* Diagnosis Chronic neck pain- Primary Cervicalgia Cervical radiculopathy Brachial neuritis or radiculitis nos documented in this encounter [facility]* Diagnosis Cervical spondylosis without myelopathy- Primary Cervical spondylosis without myelopathy- Primary Cervical spondylosis without myelopathy documented in this encounter [facility]* Diagnosis Cervical spondylosis without myelopathy- Primary documented in this encounter [facility]Evaluation [facility]* Diagnosis Migraine with aura, intractable, [...] whether esophagitis present- Primary Unspecified convulsions (CMS/HCC) IRCHA (obstructive sleep apnea) Obstructive sleep apnea (adult) [...] Primary Chronic rhinitis documented in this encounter [facility] HealthcareEvaluation note* Diagnosis Cervical spondylosis without myelopathy- Primary documented in this encounter [facility]* Diagnosis Migraine with aura, [...] without myelopathy- Primary documented in this encounter [facility] Centeral[facility]* Diagnosis Migraine with aura, intractable, with [...] spondylosis without myelopathy documented in this encounter [facility] HealthcareEvaluation note* Diagnosis Migraine with aura, intractable, [...] of right shoulder documented in this encounter [facility] HealthcareEvaluation note* Diagnosis Migraine with aura, intractable, [...] instructions No data available for this section [facility] [place] [facility] Discharge instructionsAmbulatory Orders* Referral to Orthopedic Surgery Location: None [facility] Work Phone: InstructionsNot on filedocumented in this encounter [facility] SystemInstructionsNot on filedocumented in this encounter [facility] SystemInstructionsNot on filedocumented in this encounter [facility] SystemInstructionsNot on filedocumented in this encounter [facility] SystemInstructionsNot on filedocumented in this encounter [facility] SystemProgress note No data available for this section [facility] Surgery [place] Reason for referral (narrative)* Consultation (Routine) - Pending ReviewSpecialtyDiagnoses / ProceduresReferred By ContactReferred To ContactBehavioral Health Diagnoses Anxiety Alcohol abuse Procedures [place] OFFICE/OUTPATIENT [facility] HIGH [facility] 60 MINUTES Daniel Sanchez NP [address] [place] [address] Stephanie Ibanez S, COUNTERINTELLIGENCE ANALYST-S [address] [place] [address] Referral IDStatusReasonStart DateExpiration DateVisits RequestedVisits [id number] Review Specialty Services Required / [facility] HealthcareReason for referral (narrative)No reason for referral information availableSelect Medical [facility] Work Phone: Reason for visit Narrative* Injection (Routine) - ClosedSpecialtyDiagnoses / ProceduresReferred By ContactReferred To Contact Neurology Diagnoses Other specified dorsopathies, cervical region Myalgia of auxiliary muscles, head and neck Procedures [place] INJECTION SINGLE/ASSOCIATE TRIGGER POINT 1/2 MUSCLES [place] DEXAMETHASONE SODIUM PHOS 1 CC STERILE SYRINGE&NEEDLE Quinten Figueroa MD [address] [place] [address] Phone: tel: fax: Quinten Figueroa MD [address] [place] [address] Phone: tel: fax: Referral IDStatusReasonStart DateExpiration DateVisits RequestedVisits [id number] Perform Procedure / [facility] Healthcare Summary Purpose Family History Relationship Condition [...] BRANCH BILATERAL C3/4, C4/5 MBB Denise Diehl APRN-BLUE LEATHER SETTER [address] [place] [address] Referral IDStatusReasonStmayer DateExpiration DateVisits RequestedVisits [id number] Review/[id number] / ProceduresReferred By ContactReferred To ContactRadiology Diagnoses Cervical radiculopathy Procedures MR cervical spine without contrast Denise Diehl APRN-BLUE LEATHER SETTER [address] [place] [address] Referral IDStatusReasonLewis DateExpiration DateVisits RequestedVisits [id number] Review/[id number] / ProceduresReferred By ContactReferred To ContactRehabilitation Diagnoses Chronic neck pain Denise Diehl APRN-BLUE LEATHER SETTER [address] [place] [address] [facility] [address] [place] [address] Referral IDStatusReasonStart DateExpiration DateVisits RequestedVisits [id number] Specialty Services Required Additional Source Comments INFORMATION SOURCE (unrecogn ized section and content) DATE CREATED AUTHOR 05/06/2022 [facility] DATE CREATED AUTHOR AUTHOR'S ORGANIZ ATION 04/05/2024 [facility] DATE CREATED AUTHOR AUTHOR'S ORGANIZ ATION 09/25/2024 [facility] DATE CREATED AUTHOR AUTHOR'S ORGANIZ ATION 06/27/2025 [facility] EPIC DATE CREATED AUTHOR AUTHOR'S ORGANIZ ATION 08/06/2025 [facility] Patient Care team informatio n (unrecognized section and content) Team MemberRelationshipSpecialtyStart DateEnd Date Kp Bello MD [address] [place] [address] PCP - GeneralFamily Medicine06/29/24 Shira Concepcion MD [address] [place] [address] Physician Assistant06/29/24 Mike Burkett MD [address] [place] [address] Referring PhysicianFamily Medicine12/14/23 Daniel Sanchez NP [address] [place] [place] [address] Nurse PractitionerFamily Medicine06/29/24Team MemberRelationshipSpecialtyStart DateEnd Date Kp Bello MD [address] [place] [address] [facility] - [facility] Medicine06/29/24 Shira Concepcion MD [address] [place] [address] Physician Assistant06/29/24 Mike Burkett MD [address] [place] [address] Referring PhysicianSouthern Regional Medical Center12/14/23 Daniel Sanchez NP [address] [place] [address] Nurse PractitionerSouthern Regional Medical Center06/29/24Team MemberRelationshipSpecialtyStart DateEnd Date Kp Bello MD [address] [place] [address] PCP - [facility]06/29/24 Shira Concepcion MD [address] [place] [address] Physician Assistant06/29/24 Mike Burkett MD [address], [place] [address] Referring PhysicianSouthern Regional Medical Center12/14/23 Daniel Sanchez NP [address] [place] [address] Nurse PractitionerSouthern Regional Medical Center06/29/24Team MemberRelationshipSpecialtyStart DateEnd Date Kp Bello MD [address] [place] [address] PCP - [facility] Medicine06/29/24 Shira Concepcion MD [address] [place], [place] [phone] Physician Assistant06/29/24 Mike Burkett MD [address], [place] [address] Referring PhysicianMonson Developmental Center Medicine12/14/23 Daniel Sanchez NP [address] [place] [address] Nurse PractitionerSouthern Regional Medical Center06/29/24Team MemberRelationshipSpecialtyStart DateEnd Date Kp Bello MD [address] [place] [address] PCP - GeneralSouthern Regional Medical Center06/29/24 Shira Concepcion MD [address] [place], [place] [phone] Physician Assistant06/29/24 Mike Burkett MD [address] [place], [place] 4638920 Referring PhysicianSouthern Regional Medical Center12/14/23 Daniel Sanchez NP [address] [place] [address] Nurse PractitionerSouthern Regional Medical Center06/29/24 Team Status: Active Member Role Status Dates [...] DateEnd Date Unallocated, Valerie Daugherty MD [address] [place] [address] PCP - [facility]07/31/24 Shira Concepcion MD [address] [place] [address] 57981 Physician Assistant06/29/24 Mike Burkett MD [address] [place] [address] Referring PhysicianM[facility] Medicine12/14/23 Daniel Sanchez NP [address] [place] [address] Nurse PractitionerBuchanan County Health Centerly Medicine06/29/24Team MemberRelationshipSpecialtyStart DateEnd Date Unallocated, Valerie Daugherty MD [address] [place] [address] PCP - [facility] Dgignrnw44/21/24 Shira Concepcion MD [address] [place] [address] 22270 Physician Assistant06/29/24 Mike Burkett MD [address] [place] [address] 14885 Referring PhysicianFamily Medicine12/14/23 Daniel Sanchez NP [address] [place] [address] Nurse PractitionerSouthern Regional Medical Center06/29/24Team MemberRelationshipSpecialtyStart DateEnd Date Unallocated, Valerie Daugherty MD [address] [place] [address] PCP - Generalmi Drwciwdl00/21/24 Shira Concepcion MD [address] [place] [address] 09190 Physician Assistant06/29/24 Mike Burkett MD [address] [place] [address] [place] [address] Referring [facility]miE[facility]12/14/23 Daniel Sanchez NP [address] [place] [address] Nurse PractitionerSouthern Regional Medical Center06/29/24Te MemberRelationshipSpecialtyStart DateEnd Date Unallocated, Valerie Daugherty MD [address] [place] [address] 470[address] PCP - Generalmi Outvcfwx16/21/24 Shira Concepcion MD [address] [place] [address] 34000 Physician Assistant06/29/24 Mike Burkett MD [address] [place] [address] 20264 Referring Physicianmily Medicine12/14/23 Daniel Sanchez NP [address] [place] [address] Nurse PractitionerSouthern Regional Medical Center06/29/24Team MemberRelationshipSpecialtyStart DateEnd Date Kp Bello MD [address] [place] [address] PCP - [facility] Ubluphhq84/31/24 Shira Concepcion MD [address] [place] [address] [phone] Physician Assistant06/29/24 Mike Burkett MD [address] [place] [address] [place] [address] Referring PhysicianSouthern Regional Medical Center12/14/23 Daniel Sanchez NP [address] [place] [address] Nurse PractitionerSouthern Regional Medical Center06/29/24Team MemberRelationshipSpecialtyStart DateEnd Kp Bello MD [address] [place] [address] PCP - [facility] Jwsajvfb53/31/24 Shira Concepcion MD [address] [place] [address] 5141720 Physician Assistant06/29/24 Mike Burkett MD [address] [place], [place] [address]dago Cabrera[place]smouth, [place] 5832284 Referring PhysicianFamily Medicine12/14/23 Daniel Sanchez NP [address] [place] [address] Nurse PractitionerSouthern Regional Medical Center06/29/24Team MemberRelationshipSpecialtyStart DateEnd Date Kp Bello MD [address] [place] [address] PCP - [facility]08/10/24 Shira Concepcion MD [address] [place] [address] 18636 Physician Assistant06/29/24 Mike Burkett MD [address] [place] [address]04 Referring PhysicianSouthern Regional Medical Center12/14/23 Daniel Sanchez NP [address] [place] [address] Nurse PractitionerSouthern Regional Medical Center06/29/24Te MemberRelationshipSpecialtyStart DateEnd Kp Bello MD [address] [place] [address]48[address] PCP - [facility]08/10/24 Shira Concepcion MD [address] [place] [address] 4948220 Physician Assistant06/29/24 Mike Burkett MD [address] [place] [address] Referring Physicianmi Medicine12/14/23 Daniel Sanchez, ALFREDO [address] [place] [address] Nurse PractitionerSouthern Regional Medical Center06/29/24Te MemberRelationshipSpecialtyStart DateEnd Date Kp Bello MD [address] [place] [address]98[address] PCP - [facility]08/10/24 Shira Concepcion MD [address] [place] [address] 34079 Physician Assistant06/29/24 Mike Burkett MD [address] [place] [address] Referring PhysicianSouthern Regional Medical Center12/14/23 Daniel Sanchez, ALFREDO [address] [place] [address] Nurse PractitionerSouthern Regional Medical Center06/29/24Te MemberRelationshipSpecialtyStart DateEnd Date Kp Bello MD [address] [place] [address] PCP - GeneralSouthern Regional Medical Center08/10/24 Shira Concepcion MD [facility] [place] [address] Physician Assistant06/29/24 Mike Burkett MD [address] [place] [address] Referring PhysicianSouthern Regional Medical Center12/14/23 Daniel Sanchez NP [address] [place] [address] Nurse PractitionerSouthern Regional Medical Center06/29/24Te MemberRelationshipSpecialtyStart DateEnd Date Kp Bello MD [address] [place] [address]57[address]10[address] PCP - [facility]08/10/24 [place] [address] [place] [address] [phone] Physician Assistant06/29/24 Mike Burkett MD [address] [place] [address] Referring PhysicianSouthern Regional Medical Center12/14/23 Daniel Sanchez NP [address] [place] [address]319710[address]1133 Nurse PractitionerSouthern Regional Medical Center06/29/24Te MemberRelationshipSpecialtyStart DateEnd Date Kp Bello MD [address] [place] [address] PCP - [facility]08/10/24 Shira Concepcion MD [address] [place], [place] 5472020 Physician Assistant06/29/24 Mike Burkett MD [address] [place] [address] Referring PhysicianSouthern Regional Medical Center12/14/23 Daniel Sanchez NP [address] [place] [address] Nurse PractitionerSouthern Regional Medical Center06/29/24Te MemberRelationshipSpecialtyStart DateEnd Date Kp Bello MD [address] [place] [address]10[address] PCP - [facility]08/10/24 Shira Concepcion MD [address] [place], [place] [phone] Physician Assistant06/29/24 Mike Burkett MD [address]oro [place], [place] 1472220 Referring PhysicianSouthern Regional Medical Center12/14/23 Daniel Sanchez, ALFREDO [address] [place] [address]33 Nurse PractitionerSouthern Regional Medical Center06/29/24Te MemberRelationshipSpecialtyStart DateEnd Date Kp Bello MD [address] [place] [address]7610[address] PCP - [facility]08/10/24 Shira Concepcion MD [address] [place], [place] 1297520 Physician Assistant06/29/24 Mike Burkett MD [address] [place], [place] 6522320 Referring PhysicianSouthern Regional Medical Center12/14/23 Daniel Sanchez NP [address] [place] [address]1133 Nurse PractitionerSouthern Regional Medical Center06/29/24Team MemberRelationshipSpecialtyStart DateEnd Date Kp Bello MD [address] [place] [address]-346210[address] PCP - [facility]08/10/24 Shira Concepcion MD [address] [place], [place] 6858520 Physician Assistant06/29/24 Mike Burkett MD [address] [place], [place] 3575320 Referring PhysicianSouthern Regional Medical Center12/14/23 Daniel Sanchez NP [address] [place] [address] Nurse PractitionerSouthern Regional Medical Center06/29/24Te MemberRelationshipSpecialtyStart DateEnd Date Kp Bello MD [address] [place] [address]7510[address] PCP - [facility]08/10/24 Shira Concepcion MD [address] [place], [place] 0092620 Physician Assistant06/29/24 Mike Burkett MD [address] [place] [address] Referring Physicianmi Medicine12/14/23 Daniel Sanchez NP [address] [place], [place] [address] [address] Nurse PractitionerFamily Medicine06/29/24Team MemberRelationshipSpecialtyStart DateEnd Date Shira Concepcion MD [address] [place] [address] PCP - GeneralPhysician Assistant05/15/24 Mike Burkett MD [address] [place] [address] Referring PhysicianSouthern Regional Medical Center12/14/23Team MemberRelationshipSpecialtyStart DateEnd Date Shira Concepcion MD [address] [place] [address] 08022 PCP - GeneralPhysician Assistant05/15/24 Mike Burkett MD [address] [place] [address] Referring PhysicianSouthern Regional Medical Center12/14/23Team MemberRelationshipSpecialtyStart DateEnd Date Shira Concepcion MD [facility] [place], [place] [phone] PCP - GeneralPhysician Assistant05/15/24 Mike Burkett MD [address] [place], [place] 0968420 Referring Physicianmi Medicine12/14/23Team MemberRelationshipSpecialtyStart DateEnd Date Kp Bello MD [address] [place] [address] PCP - GeneralFamily Mvanuetf61/31/24 Shira Concepcion MD [address] [place] [address] [phone] Physician Assistant06/29/24 Mike Burkett MD [address] [place] [address] [place] [address] Referring PhysicianSouthern Regional Medical Center12/14/23 Daniel Sanchez NP [address] [place] [address] Nurse PractitionerSouthern Regional Medical Center06/29/24Team MemberRelationshipSpecialtyStart DateEnd Date Kp Bello MD [address] [place] [address] PCP - GeneralSouthern Regional Medical Center08/10/24 Shira Concepcion MD [address] [place] [address] [phone] Physician Assistant06/29/24 Mike Burkett MD [address] [place] [address] [place], [place] 9941620 Referring PhysicianSouthern Regional Medical Center12/14/23 Daniel Sanchez NP [address] [place] [address] Nurse PractitionerSouthern Regional Medical Center06/29/24Team MemberRelationshipSpecialtyStart DateEnd Date Kp Bello MD [address] [place] [address] PCP - Generalmi Ohutcdjb01/31/24 Shira Concepcion MD [address] [place] [address] 07875 Physician Assistant06/29/24 Mike Burkett MD [address] [place] [address]49 Referring PhysicianSouthern Regional Medical Center12/14/23 Daniel Sanchez NP [address] [place] [address] Nurse PractitionerSouthern Regional Medical Center06/29/24Te MemberRelationshipSpecialtyStart DateEnd Date Kp Bello MD [address] [place] [address]89241002 PCP - GeneralSouthern Regional Medical Center08/10/24 Shira Concepcion MD [address] [place] [address] 99204 Physician Assistant06/29/24 Mike Burkett MD [address] [place] [address] [place] [address] Referring PhysicianSouthern Regional Medical Center12/14/23 Daniel Sanchez NP [address] [place] [address] Nurse PractitionerSouthern Regional Medical Center06/29/24Te MemberRelationshipSpecialtyStart DateEnd Date Kp Bello MD [address] [place] [address] PCP - [facility] Mzmvqkns44/31/24 [place] [address] [place] [address] 83108 Physician Assistant06/29/24 [place] [address] [place] [address] 7[address] Referring PhysicianSouthern Regional Medical Center12/14/23 Daniel Sanchez NP [address] [place] [address] Nurse PractitionerSouthern Regional Medical Center06/29/24Te MemberRelationshipSpecialtyStart DateEnd Date Kp Bello MD [address] [place] [address] PCP - GeneralSouthern [facility] Medical Center08/10/24 [place] [address] [place] [address] 53822 Physician Assistant06/29/24 [place] [address] [place] [address] [place] [address] Referring PhysicianSouthern Regional Medical Center12/14/23 Daneil Sanchez NP [address] [place] [address] Nurse PractitionerBuchanan County Health Centerly Medicine06/29/24 Team Status: Active Member Role [...] DateEnd Date Kp Bello MD [address] [place] [address] PCP - [facility] Iogwzdyk98/31/24 Shira Concepcion MD [address] [place] [address] Physician Assistant06/29/24 Mike Burkett MD [address] [place], [place] [phone] Referring PhysicianSouthern Regional Medical Center12/14/23 Daniel Sanchez NP [address] [place] [phone] Nurse PractitionerSouthern Regional Medical Center06/29/24Team MemberRelationshipSpecialtyStart DateEnd Date Kp Bello MD [address] [place] [address] PCP - [facility] Yleacpyh90/31/24 Sihra Concepcion MD [address] [place] [address] [phone] Physician Assistant06/29/24 Mike Burkett MD [address] [place] [address] [place], [place] 3939320 Referring PhysicianSouthern Regional Medical Center12/14/23 Daniel Sanchez NP [address] [place] [address]11[address] Nurse PractitionerSouthern Regional Medical Center06/29/24Team MemberRelationshipSpecialtyStart DateEnd Date Kp Bello MD [address] [place] [address] PCP - GeneralSouthern [facility] Medical Center08/10/24 Shira Concepcion MD [address] [place] [address] [phone] Physician Assistant06/29/24 Mike Burkett MD [address] [place] [address] [place], [place] [phone] Referring PhysicianSouthern Regional Medical Center12/14/23 Daniel Sanchez NP [address] [place] [address] Nurse PractitionerM[facility] Developmental Center Medicine06/29/24Team MemberRelationshipSpecialtyStart DateEnd Date Kp Bello MD [address] [place] [address]10[address] PCP - Generalmi Lbdgrhpa41/31/24 Shira Concepcion MD [address] [place] [address] 8494220 Physician Assistant06/29/24 Mike Burkett MD [address] [place] [address] [place] [address] Referring PhysicianSouthern Regional Medical Center12/14/23 Daniel Sanchez NP [address] [place] [phone] Nurse PractitionerSouthern Regional Medical Center06/29/24Team MemberRelationshipSpecialtyStart DateEnd Date Kp Bello MD [address] [place] [address] PCP - GeneralSouthern [facility] Medical Center08/10/24 Shira Concepcion MD [address] [place] [address] 4460020 Physician Assistant06/29/24 Mike Burkett MD [facility] [place] [address] Referring PhysicianSouthern Regional Medical Center12/14/23 Daniel Sanchez NP [address] [place] [address] Nurse PractitionerSouthern Regional Medical Center06/29/24Team MemberRelationshipSpecialtyStart DateEnd Date Kp Bello MD [address] [place] [address] PCP - [facility] Ayeurnfl76/31/24 Shira Concepcion MD [address] [place] [address] 88665 Physician Assistant06/29/24 Mike Burkett MD [address] [place] [address]12 Referring PhysicianSouthern Regional Medical Center12/14/23 Daniel Sanchez NP [address] [place] [address] Nurse PractitionerSouthern Regional Medical Center06/29/24Te MemberRelationshipSpecialtyStart DateEnd Kp Bello MD [address] [place] [address] PCP - GeneralSouthern [facility] Medical Center08/10/24 Shira Concepcion MD [address] [place] [address] 83975 Physician Assistant06/29/24 Mike Burkett MD [address] [place] [address] [place] [address] Referring PhysicianSouthern Regional Medical Center12/14/23 Daniel Sanchez NP [address] [place] [address] Nurse PractitionerM[facility] Medicine06/29/24Team MemberRelationshipSpecialtyStart DateEnd Date Kp Bello MD [address] [place] [address] PCP - [facility]08/10/24 Shira Concepcion MD [address] [place] [address] Physician Assistant06/29/24 Mike Burkett MD [address] [place] [address] Referring PhysicianSouthern Regional Medical Center12/14/23 Daniel Sanchez, ALFREDO [address] [place] [address] Nurse PractitionerSouthern Regional Medical Center06/29/24Team MemberRelationshipSpecialtyStart DateEnd Date Mike Burkett, CORE MAKER-[employer] LEATHER SETTER [address] [place] [address] PCP - [facility] Medicine12/21/22Team MemberRelationshipSpecialtyStart DateEnd Date Mike Burkett, CORE MAKER-[employer] LEATHER SETTER [address] [place] [address] PCP - [facility] Medicine12/21/22Team MemberRelationshipSpecialtyStart DateEnd Date Mike Burkett, CORE MAKER-[employer] LEATHER SETTER [address] [place], [place] 7662720 PCP - GeneralFamily Medicine12/21/22Team MemberRelationshipSpecialtyStart DateEnd Date Daniel Sanchez CORE MAKER-[facility] [address] [place] [address] PCP - GeneralNurse Dxfwazdlmiwt15/9/24Team MemberRelationshipSpecialtyStart Date End Date Dainel Sanchez CORE MAKER-[facility] [address] [facility] [place] [address] PCP - GeneralNurse Uhcahoqssogk26/9/24Te MemberRelationshipSpecialtyStart Date End Date Daniel Sanchez CORE MA[employer]ER-[facility] [address] [place] [address] PCP - GeneralNurse Mvmalhyiqfdc74/9/24Te MemberRelationshipSpecialtyStart Date End Date Kp Bello MD [address] [place], [place] [address]p[place] [address] PCP - GeneralBuchanan County Health Centerly Ihwroejd16/31/24 Shira Concepcion MD [address] [place], [place] 5032720 Physician Assistant06/29/24 Mike Burkett MD [address] [place] [address] Referring PhysicianMonson Developmental Center Medicine12/14/23 Daniel Sanchez, ALFREDO [address] [place] [address] Nurse PractitionerBuchanan County Health Centerly Medicine06/29/24Team MemberRelationshipSpecialtyStart DateEnd Date Kp Bello MD [address] [place] [address] PCP - [facility] Opueffbg67/31/24 Shira Concepcion MD [address] [place], [place] 0570120 Physician Assistant06/29/24 Mike Burkett MD [address] [place] [address] Referring PhysicianSouthern Regional Medical Center12/14/23 Daniel Sanchez NP [address] [place] [address] Nurse PractitionerSouthern Regional Medical Center06/29/24Te MemberRelationshipSpecialtyStart DateEnd Date Kp Bello MD [address] [place] [address]75411[address] PCP - [facility]08/10/24 Shira Concepcion MD [facility]1 [place], [place] 4671220 Physician Assistant06/29/24 Mike Burkett MD [address] [address] Referring PhysicianSouthern Regional Medical Center12/14/23 Daniel Sanchez NP [address] [place] [address] Nurse PractitionerSouthern Regional Medical Center06/29/24Te MemberRelationshipSpecialtyStart DateEnd Date Kp Bello MD [address] [place] [address]8435[address] PCP - Generalmily Ajifmfod19/31/24 Shira Concepcion MD [address] [place] [address] Physician Assistant06/29/24 Mike Burkett MD [address] [place] [address] Referring PhysicianMonson Developmental Center Medicine12/14/23 Daniel Sanchez NP [address] [place] [address] Nurse PractitionerSouthern Regional Medical Center06/29/24Team MemberRelationshipSpecialtyStart DateEnd Date Kp Bello MD [address] PCP - GeneralM[facility] Bdojnwzz08/31/24 Shira Concepcion MD [facility]1 [place], [place] [phone] Physician Assistant06/29/24 Mike Burkett MD [address] [place] [address] Referring PhysicianSouthern Regional Medical Center12/14/23 Daniel Sanchez NP [address] [address] Nurse PractitionerSouthern Regional Medical Center06/29/24Team MemberRelationshipSpecialtyStart DateEnd Date Kp Bello MD [address] PCP - GeneralFamily Chodgyrq04/31/24 Shira Concepcion MD [address] [place] [address] 54561 Physician Assistant06/29/24 Mike Burkett MD [address] [place] [address] Referring Physicianmily Medicine12/14/23 Daniel Sanchez NP [address] [place] [address] Nurse PractitionerM[facility] Developmental Center Medicine06/29/24Team MemberRelationshipSpecialtyStart DateEnd Date Kp Bello MD [address] [place] [address] PCP - Generalmily Htrjlyds48/31/24 Shira Concepcion MD [address] [place] [address] 58392 Physician Assistant06/29/24 Mike Burkett MD [address] [place] [address] Referring Physicianmi Medicine12/14/23 Daniel Sanchez NP [address] [place] [address] Nurse PractitionerSouthern Regional Medical Center06/29/24Te MemberRelationshipSpecialtyStart DateEnd Date Kp Bello MD [address] [place] [address] PCP - GeneralFamily Ahyqgebg57/31/24 Shira Concepcion MD [address] [place] [address] Physician Assistant06/29/24 Mike Burkett MD [address] [place] [address] Referring Physicianmi Medicine12/14/23 Daniel Sanchez, ALFREDO [address] [place] [address] Nurse PractitionerSouthern Regional Medical Center06/29/24Team MemberRelationshipSpecialtyStart DateEnd Date Kp Bello MD [address] [place] [address] PCP - GeneralBuchanan County Health Centerly Srwjowzr62/31/24 Shira Concepcion MD [address] [place] [address] Physician Assistant06/29/24 Mike Burkett MD [address] [place] [address] Referring PhysicianMonson Developmental Center Medicine12/14/23 Daniel Sanchez, MANAGER OF INTERNATIONAL [address] [place] [address] Nurse PractitionerSouthern Regional Medical Center06/29/24Team MemberRelationshipSpecialtyStart DateEnd Date Daniel Sanchez, CORE MAKER-[employer] LEATHER SETTER [address] [place] [address] PCP - GeneralNurse Csyhitruhlvd53/9/24Team MemberRelationshipSpecialtyStart Date End Date Kp Bello MD [address] [place] [address] PCP - [facility]08/10/24 Shira Concepcion MD [address] [place], [place] 8809620 Physician Assistant06/29/24 Mike Burkett MD [address] [place] [address] Referring PhysicianSouthern Regional Medical Center12/14/23 Daniel Sanchez NP [address] [place] [address] Nurse PractitionerSouthern Regional Medical Center06/29/24Te MemberRelationshipSpecialtyStart DateEnd Date Kp Bello MD [address] [place] [address] PCP - [facility]08/10/24 Shira Concepcion MD [facility]1 [place], [place] 4392920 Physician Assistant06/29/24 Mike Burkett MD [address] [place], [place] 1938120 Referring PhysicianSouthern Regional Medical Center12/14/23 Daniel Sanchez NP [address] [place] [address] Nurse PractitionerSouthern Regional Medical Center06/29/24Te MemberRelationshipSpecialtyStart DateEnd Date Kp Bello MD [address] [place] [address] PCP - GeneralBuchanan County Health Centerly Hsaqpqek81/31/24 Shira Concepcion MD [address] [place] [address] Physician Assistant06/29/24 Mike Burkett MD [address] [address] Referring PhysicianMonson Developmental Center Medicine12/14/23 Daniel Sanchez NP [address] [place] [address] Nurse PractitionerSouthern Regional Medical Center06/29/24Team MemberRelationshipSpecialtyStart DateEnd Date Kp Bello MD [address] PCP - GeneralM[facility] Gzockyvf26/31/24 Shira Concepcion MD [address] [place] [address] 6937620 Physician Assistant06/29/24 Mike Burkett MD [address] [place] [address] Referring PhysicianSouthern Regional Medical Center12/14/23 Daniel Sanchez NP [address] [place] [address] Nurse PractitionerSouthern Regional Medical Center06/29/24Team MemberRelationshipSpecialtyStart DateEnd Date Kp Bello MD [address] [address] PCP - GeneralFamily Estifqsf46/31/24 Shira Concepcion MD [address] [place] [address] Physician Assistant06/29/24 Mike Burkett MD [address] [place] [address] Referring Physicianmily Medicine12/14/23 Daniel Sanchez NP [address] [place] [address] Nurse PractitionerSouthern [facility]06/29/24Team MemberRelationshipSpecialtyStart DateEnd Date Kp Bello MD [address] PCP - Generalmily Urslhtlo34/31/24 Shira Concepcion MD [address] [place] [id number] Physician Assistant06/29/24 Mike Burkett MD [address] [place] [address] Referring [facility]icianM[facility] Medicine12/14/23 Daniel Sanchez NP [address] [place] [address] Nurse PractitionerSouthern [facility]06/29/24Te MemberRelationshipSpecialtyStart DateEnd Date Kp eBllo MD [address] [place] [phone] PCP - [facility] Wpwqsdmv25/31/24 Shira Concepcion MD [address] [place] [address] Physician Assistant06/29/24 Mike Burkett MD [address] [place] [address] Referring PhysicianM[facility] Developmental Center Medicine12/14/23 Daniel Sanchez, ALFREDO [address] [place] [address] Nurse PractitionerSouthern [facility] Center06/29/24Team MemberRelationshipSpecialtyStart DateEnd Date Kp Bello MD [address] [place] [id number] PCP - [facility]08/10/24 Shira Concepcion MD [address] [place], [place] [phone] Physician Assistant06/29/24 Mike Burkett MD [address] [place] [address] Referring PhysicianSouthern Regional Medical Center12/14/23 Daniel Sanchez, MANAGER OF INTERNATIONAL [address] [place] [address] Nurse PractitionerSouthern [facility] Center06/29/24Team MemberRelationshipSpecialtyStart DateEnd Date Kp Bello MD [address] [place] [phone] PCP - [facility]08/10/24 Shira Concepcion MD [address] [place] [address] Physician Assistant06/29/24 Mike Burkett MD [address] [place] [address] Referring PhysicianM[facility] Medicine12/14/23 Daniel Sanchez, ALFRDEO [address] [place] [address] Nurse PractitionerSouthern [facility] Center06/29/24Team MemberRelationshipSpecialtyStart DateEnd Date Kp Bello MD [address] [place] [phone] PCP - Generalmily Qwqlzzll97/31/24 Shira Concepcion MD [address] [place] [address] Physician Assistant06/29/24 Mike Burkett MD [address] [place] [address] Referring PhysicianSouthern Regional Medical Center12/14/23 Daniel Sanchez, ALFREDO [address] [place] [address] Nurse PractitionerSouthern [facility]06/29/24Team MemberRelationshipSpecialtyStart DateEnd Date Shira Concepcion MD [address] [place] [address] Physician Assistant06/29/24 Mike Burkett MD [address] [address] Referring PhysicianM[facility] Developmental Center Medicine12/14/23 Jacque Daniel NP [address] [place] [address] Nurse PractitionerFalaly Medicine06/05/25Team MemberRelationshipSpecialtyStart DateEnd Date Shira Concepcion MD [address] [place] [address] Physician Assistant06/29/24 Mike Burkett MD [address] [place] [address] Referring PhysicianSouthern Regional Medical Center12/14/23 Jacque Daniel NP [address] [place] [address] Nurse PractitionerSouthern [facility] Center06/05/25Te MemberRelationshipSpecialtyStart DateEnd Date Shira Concepcion MD [address] [place] [address] Physician Assistant06/29/24 Mike Burkett MD [address] [place] [address] Referring PhysicianSouthern Regional Medical Center12/14/23 Jacque Daniel NP [address] [place] [address] Nurse PractitionerSouthern [facility] Center06/05/25Te MemberRelationshipSpecialtyStart DateEnd Date Shira Concepcion MD [address] [place] [address] Physician Assistant06/29/24 Mike Burkett MD [address] [place] [address] Referring PhysicianSouthern Regional Medical Center12/14/23 Jacque Daniel NP [address] [place] [address] Nurse PractitionerSouthern [facility] Center06/05/25Team MemberRelationshipSpecialtyStart DateEnd Date Shira Concepcion MD [address] [place] [address] Physician Assistant06/29/24 Mike Burkett MD [address] [place] [address] Referring PhysicianSouthern Regional Medical Center12/14/23 Jacque Daniel NP [address] [place] [address] Nurse PractitionerSouthern [facility] Center06/05/25 Team Status: Inactive Member Role Status Dates [...] MemberRelationshipSpecialtyStart DateEnd Date Shira Concepcion MD [address] [place] [address] Physician Assistant06/29/24 Mike Burkett MD [address] [place] [address] Referring PhysicianM[facility] Developmental Center Medicine12/14/23 Jacque Daniel NP [address] [place] [address] Nurse PractitionerSouthern [facility] Center06/05/25 Team Status: Active Member Role/Relationship Status Dates [...] ContactBehavioral Health Diagnoses Anxiety Alcohol abuse Procedures [place] OFFICE/OUTPATIENT NEW [facility] 60 MINUTES Daniel Sanchez NP [address] [place] [address] Phone: tel: fax: Stephanie Ibanez, STACIE-S [address] [place] [address] Phone: tel: fax: Referral IDStatusReasonStart DateExpiration DateVisits RequestedVisits [id number] Specialty Services Required [id number] DateCommentsMed Rkcjxg4108/02/2024easonComments Screening and Treatment PlanningReasonCommentsCounseling sesssionReasonComments Counseling sessionReasonCommentsCounsleing sessionReasonCommentsMed RefillReason CommentsMed Change RequestReasonCommentsCounseling SessionReasonCommentsPain ReasonOnset DateCommentsMed Xxdfjc754ReasonCommentsMigraineReasonOnset DateCommentsMed Qaecsr0009/28/2024easonOnset DateCommentsMed Ltjfux0010/02/2024 ReasonCommentsMigraineReasonCommentsFollow-upReasonCommentsPainSpecialty Diagnoses / ProceduresReferred By ContactReferred To ContactOrthopaedic Surgery Diagnoses Primary osteoarthritis, right shoulder Procedures [place] UNLISTED EVALUATION AND MANAGEMENT SERVICE [facility] [address] [address] Phone: tel: fax: Jr. Evan Michel, DO [address] [address] Phone: tel: fax: Referral IDStatusReasonStart DateExpiration DateVisits RequestedVisits [id number] PainReasonComments Neck PainReasonCommentsNeck PainReasonOnset DateCommentsMed Xtiadm8012/06/2024 ReasonOnset DateCommentsMed Kvujfu8501/17/2025ReasonOnset DateCommentsMed Refill 02/16/2025ReasonOnset DateCommentsMed Pbkuvi7004/24/2025ReasonOnset DateComments Med Jxpofn1605/03/2025ReasonCommentsGastroesophageal reflux disease, unspecified whether rinmrrLjcjicEyvfcodlGgfpti-iiRakydnUjzmdvgaSfofta-bcXetjTscxgbKpkbb Date CommentsMed Njrqpl4906/05/2025ReasonOnset DateCommentsMed Cvdcmi5907/10/2025 Goals (unrecognized section and content) Goals may [...] BE BASED ON THE PRIMARY CLINICAL RECORDS. [employer] provides no warranty or guarantee of the accuracy or completeness of information in this document.
== END 2025-08-20 09:46 | disposition home or self-care (01) ==
LOC: MAMMO 09:45
PROVIDERS: PCP Nurse Practitioner; Visit Provider Nurse Practitioner
DX: Z12.31 Encounter for screening mammogram for malignant neoplasm of breast (principal)
CPT/HCPCS: 77063; 77067